=== PATIENT | male | born 1945 | race African-American/Black ===

== ENCOUNTER → 2017-04-30 | Outpatient (CLI) | payer OTHER ==
[2017-04-30 17:45] LABS: BLOOD UREA NITROGEN 11 mg/dl (7-18); BUN/CREATININE RATIO 8.7 (10-20); CALCIUM 9.1 mg/dl (8.5-10.1); CARBON DIOXIDE 25 mmol/L (21-32); CHLORIDE 107 mmol/L (98-107); GLUCOSE 100 mg/dl (70-99); POTASSIUM 3.8 mmol/L (3.5-5.1); SODIUM 138 mmol/L (136-145)
== END | disposition home or self-care (01) ==
LOC: C.LABSPEC 16:01
PROVIDERS: ATTEND Physician Assistant Medical
DX: Z01.812 Encounter for preprocedural laboratory examination (principal)

== ENCOUNTER 2017-09-17 03:48 | Inpatient (IN) | payer OTHER ==
[~2017-09-17] VITALS: Ht 175.3 cm; Wt 77.0 kg
[2017-09-17] VITALS (22 sets, daily range): BP systolic 111–138; BP diastolic 59–82; PULSE 94–122; TEMP 36.6–36.7; O2SAT 91–96; Ht 175.3 cm; Wt 77.0 kg
[2017-09-17] MEDS ORDERED: AMLO-114 PO (04:25)
[2017-09-17] MEDS ORDERED: ACET-1256 PO (04:25)
[2017-09-17] MEDS ORDERED: ASPI81TA28 PO (04:25)
[2017-09-17] MEDS ORDERED: CETI10TA84 PO (04:25)
[2017-09-17] MEDS ORDERED: ENAL1TAB31 PO (04:25)
[2017-09-17] MEDS ORDERED: FINA5TAB PO (04:26)
[2017-09-17] MEDS ORDERED: NAPR-1169 PO (04:26)
[2017-09-17] MEDS ORDERED: LOVA20TA4 PO (04:26)
[2017-09-17] MEDS ORDERED: HYDR25TA4 PO (04:26)
[2017-09-17] MEDS ORDERED: METO25TA56 PO (04:26)
[2017-09-17] MEDS ORDERED: TAMS0.4C38 PO (04:27)
[2017-09-17] MEDS ORDERED: SODIUM CHLORIDE 0.9% 1000ML 1,000 ML IV STA ×3 (04:46→05:40)
--- NOTE | 2017-09-17 04:53 | EMERGENCY ROOM VISIT NOTE ---
History Report prepared by Kary: Blaise Smith Under the Supervision of: Dr. Madison Asher M.D. First contact with patient: 04:07 Chief Complaint: HIP PAIN Stated Complaint: LEG PAIN, TACHYCARDIAC History of Present Illness The patient is a 72 year old male who presents to the Emergency Room with complaints of worsening left hip and leg pain for the past two weeks which is worse with movement. The patient states that the pain started once they put in a vega catheter 14 days ago, and he states that it is in because he has an enlarged prostate. He states that he had a fever when it was put in, though he does not have one now, and he states that he is currently short of breath. He states that he feels dehydrated since he has been unable to drink. The patient denies any hematochezia and vomiting. He has a history of diabetes, hypertension , and hepatitis A, and he takes aspirin and naproxen. He has no history of blood clots. He notes that he had some brown urine a couple of days ago. Source of History: patient Onset: two weeks ago Position: leg (left), other (left hip) Timing: worsening Modifying Factors (Worsening): movement Associated Symptoms: + SOB, No vomiting, No hematochezia Review of Systems See HPI for pertinent positives & negatives. A total of 10 systems reviewed and were otherwise negative. 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) Current/Historical Medications Scheduled Acetaminophen (Tylenol), 500 MG PO TID Amlodipine (Norvasc), 10 MG PO DAILY Aspirin (Aspirin Ec), 81 MG PO DAILY Cetirizine (Zyrtec), 10 MG PO DAILY Enalapril Maleate (Vasotec), 1 TAB PO DAILY Finasteride (Proscar), 5 MG PO DAILY Hydrochlorothiazide (Hctz), 25 MG PO DAILY Lovastatin (Mevacor), 20 MG PO HS Metoprolol Tartrate (Lopressor) (Lopressor), 25 MG PO BID Naproxen (Naprosyn), 500 MG PO BID Tamsulosin Hcl (Flomax), 0.4 MG PO BID Allergies Coded Allergies: No Known Allergies (Unverified , 09/17/17) Physical Exam Vital Signs Date Time Temp Pulse Resp B/P (MAP) Pulse Ox O2 Delivery O2 Flow Rate FiO2 09/17/17 09:30 95 Room Air 09/17/17 09:15 36.6 122 32 138/73 (94) 95 Room Air 09/17/17 09:00 117 32 136/64 94 09/17/17 08:01 128 24 122/63 95 Room Air 09/17/17 07:38 93 Room Air 09/17/17 07:04 121 09/17/17 06:24 117 24 121/81 93 Room Air 09/17/17 05:40 115/72 09/17/17 05:30 116 24 95 Room Air 09/17/17 05:00 122 22 93 Room Air 09/17/17 04:30 119 20 94 Room Air 09/17/17 04:08 122 09/17/17 03:54 36.7 129 24 123/71 97 Room Air Physical Exam Vital signs reviewed. General: Ill-appearing male, in no significant distress. HEENT: Mild scleral icterus, PERRLA, neck supple. Atraumatic. Cardiovascular: Tachycardic rate and regular rhythm, no extra sounds. Pulmonary: Clear to auscultation bilaterally, normal work of breathing. Abdomen: Soft, nontender, nondistended, positive bowel sounds. : Vega catheter in place in place with a small amount of brown to dark yellow urine in the catheter with nothing in the bag. Musculoskeletal: Mild tenderness over the proximal left femur. Pain with range of motion of the left leg. Atraumatic, no peripheral edema. Neurologic: Patient awake alert and oriented x 3, full strength in all 4 extremities. Cranial nerves 2 through 12 grossly intact. Skin: Warm, dry, no rash Medical Decision & Procedures ER Provider Diagnostic Interpretation: X-ray results as stated below per interpretation by me Chest: Perihilar prominence on the right. No focal lung consolidation. No failure. Rotated X-ray. Laboratory Results Test 09/17/17 04:05 09/17/17 05:07 09/17/17 05:41 09/17/17 08:24 Neutrophils % (Manual) 89.6 % Lymphocytes % (Manual) 1.7 % Monocytes % (Manual) 3.5 % Metamyelocytes % 5.2 % Neutrophils # (Manual) 32.08 K/uL (1.4-6.5) Total Absolute Neutrophils 32.08 K/uL (1.4-6.5) Lymphocytes # (Manual) 0.61 K/uL (1.2-3.4) Total Absolute Lymphocytes 0.61 K/uL (1.2-3.4) Monocytes # (Manual) 1.25 K/uL (0.11-0.59) Metamyelocytes # 1.86 K/uL (0-0) Peripheral Blood Smear Path Consult Total Creatine Kinase 38 U/L (39-308) Creatine Kinase MB < 0.5 ng/ml (0.5-3.6) Creatine Kinase MB Ratio (0-3.0) Bedside Lactic Acid Venous 5.46 mmol/L (0.90-1.70) Urine Color ORANGE Urine Appearance TURBID (CLEAR) Urine pH 5.0 (4.5-7.5) Urine Specific [place] 1.020 (1.000-1.030) Urine Protein 1+ (NEG) Urine Glucose (UA) NEG (NEG) Urine Ketones NEG (NEG) Urine Occult Blood 3+ (NEG) Urine Nitrite POS (NEG) Urine Bilirubin NEG (NEG) Urine Urobilinogen NEG (NEG) Urine Leukocyte Esterase LARGE (NEG) Urine WBC (Auto) >30 /hpf (0-5) Urine RBC (Auto) >30 /hpf (0-4) Urine Hyaline Casts (Auto) 0 /lpf (0-5) Urine Epithelial Cells (Auto) 10-20 /lpf (0-5) Urine Bacteria (Auto) 2+ (NEG) Urine Pathogenic Casts /lpf (0) Urine Yeast (Auto) (NONE PRSENT) Arterial Blood pH 7.41 (7.35-7.45) Arterial Blood Partial Pressure CO2 26 mmHg (35-46) Arterial Blood Partial Pressure O2 68 mm/Hg (80-95) Arterial Blood HCO3 16 mmol/L (19-24) Arterial Blood Oxygen Saturation 92.1 % (90-95) Arterial Blood Base Excess -7.1 mEq/L (-9-1.8) Arterial Blood Gas Delivery RA Román Test POS (POS) Date/Time Source Procedure Growth Status 09/17/17 09:30 Nasal MRSA DNA Surveillance Screen - Final Specimen Negative for MRSA by DNA Probe Complete 09/17/17 05:41 Urine,Catheterized Urine Culture - Final Escherichia Coli Complete Laboratory results per my review. Medications Administered Medications (Trade) Dose Ordered Sig/[place]andel[place] Route Start Time Stop Time Status Last Admin Dose Admin Sodium Chloride 1,000 ml @ 999 mls/hr Q1H1M STAT IV 09/17/17 04:46 09/17/17 05:46 DC 09/17/17 04:46 999 MLS/HR Sodium Chloride 1,000 ml @ 999 mls/hr Q1H1M STAT IV 09/17/17 05:40 09/17/17 06:40 DC 09/17/17 05:40 999 MLS/HR Sodium Chloride 1,000 ml @ 150 mls/hr Q6H40M STAT IV 09/17/17 05:40 09/17/17 12:21 DC 09/17/17 05:40 150 MLS/HR Piperacillin Sod/ Tazobactam Sod (Zosyn Iv) 4.5 gm NOW STAT IV 09/17/17 07:19 09/17/17 07:20 DC 09/17/17 07:25 4.5 GM Sodium Chloride 1,000 ml @ 999 mls/hr Q1H1M ONCE IV 09/17/17 08:21 09/17/17 09:37 DC 09/17/17 09:15 999 MLS/HR Pantoprazole Sodium (Protonix Tab) 40 mg DAILY PO 09/17/17 09:00 09/20/17 09:01 DC 09/20/17 09:46 40 MG ECG Indication: SOB/dyspnea Rate (beats per minute): 127 Rhythm: sinus tachycardia Findings: PVC, no acute ischemic change Change: Patient's electrocardiogram interpreted by me. ED Course 0407: Past medical records reviewed. The patient was evaluated in room A9. A complete history and physical examination was performed. 0446: Sodium Chloride 1000 ml @ 999 mls/hr IV 0540: Sodium Chloride 1000 ml @ 150 mls/hr IV, Sodium Chloride 1000 ml @ 999 mls /hr IV 0613: I reevaluated the patient, and he was at CT scan. 0719: Zosyn 4.5gm IV 0720: I discussed the patient's case with Dr. uLevano - [facility] Hospitalist, and she will evaluate the patient for further management. 0805: Upon reevaluation, the patient is resting comfortably. I discussed laboratory and radiographic results with him. He verbalized agreement of the treatment plan. The patient will be evaluated for further management and care. Medical Decision Differential diagnosis include: Biliary obstruction, pancreatic mass, hepatitis , UTI, pyelonephritis, renal failure, sepsis, UTI, prostatitis, acute on chronic pain. This patient was evaluated and appeared to be chronically ill. IV access was obtained and laboratory work was drawn. EKG reveals a sinus tachycardia at 127. Laboratory work reveals a significant leukocytosis, hyperbilirubinemia, UTI and acute renal failure. The patient was hydrated with normal saline solution. Blood cultures were obtained. The patient was given IV Zosyn in the emergency department. CT scan abdomen and pelvis was performed and is read as above. There is no large obstructing biliary mass. The etiology of the patient 's presentation is unclear. He is suffering from sepsis which is likely a huge component of the process. He will be evaluated by the hospitalist service for further management. Medication Reconcilliation Current Medication List: was personally reviewed by me Blood Pressure Screening Patient's blood pressure: Normal blood pressure Consults Time Called: 0651 Consulting Physician: Dr. Bassem SUAREZ Hospitalist Returned Call: 0720 I discussed the patient's case with Dr. Bassem SUAREZ Hospitalist, and she will evaluate the patient for further management. Impression Primary Impression: Acute renal failure Additional Impressions: UTI (urinary tract infection) Hyperbilirubinemia Leukocytosis Scribe Attestation The scribe's documentation has been prepared under my direction and personally reviewed by me in its entirety. I confirm that the note above accurately reflects all work, treatment, procedures, and medical decision making performed by me. Departure Information Dispostion Being Evaluated By Hospitalist Referrals Jamarcus MURPHY (PCP) Patient Instructions My [facility] Problem Qualifiers
[2017-09-17 05:52] LABS: AST/SGOT 79 U/L (15-37)
[2017-09-17 05:53] LABS: ALKALINE PHOSPHATASE 716 U/L (45-117); ALT/SGPT 56 U/L (12-78); BLOOD UREA NITROGEN 107 mg/dl (7-18); CALCIUM 8.9 mg/dl (8.5-10.1); CARBON DIOXIDE 16 mmol/L (21-32); CKMB < 0.5 ng/ml (0.5-3.6); CREATININE 6.51 mg/dl (0.60-1.40); GLUCOSE 84 mg/dl (70-99); SODIUM 135 mmol/L (136-145); TOTAL PROTEIN 6.6 gm/dl (6.4-8.2)
[2017-09-17 06:05] LABS: HEMATOCRIT 30.3 % (42-52); MEAN CELL VOLUME 74.3 fL (80-100); MEAN CORPUSCULAR HGB CONC 36.3 g/dl (32-36); NUCLEATED RED BLOOD CELL ABS 0.05 K/uL (0-0); PLATELET COUNT 74 K/uL (130-400); RED CELL DISTRIBUTION WIDTH CV 14.4 % (11.5-14.5); RED CELL DISTRIBUTION WIDTH SD 38.9 fL (36.4-46.3)
--- NOTE | 2017-09-17 07:08 | DIAGNOSTIC IMAGING REPORT ---
CT SCAN OF THE ABDOMEN AND PELVIS WITHOUT CONTRAST CLINICAL HISTORY: Elevated bilirubin. Renal failure. COMPARISON STUDY: No previous studies for comparison. TECHNIQUE: CT scan of the abdomen and pelvis was performed from the lung bases to the proximal femurs. Images are reviewed in the axial, sagittal, and coronal planes. IV contrast was not administered for this examination. A dose lowering technique was utilized adhering to the principles of ALARA. CT DOSE: 343.91 mGy.cm FINDINGS: Lower chest: There are mild bibasal atelectatic changes present. Liver: The unenhanced liver is normal in size, contour, and attenuation. There is no intrahepatic biliary ductal dilatation. Gallbladder: Unremarkable. Spleen: Normal in size and attenuation. Pancreas: Unremarkable. Adrenal glands: Unremarkable. Kidneys: No renal, ureteral, or bladder calculi are visualized. There is minor bilateral perinephric stranding. Bowel: There are no transition zones indicate bowel obstruction. There are multiple colonic diverticula present. There is no evidence of acute diverticulitis. The appendix appears normal. Peritoneum: There is no intraperitoneal free air or abdominal ascites. There is small fat-containing right inguinal hernia Vasculature: The abdominal aorta is normal in course and caliber. Adenopathy: None. Pelvic viscera: There is indwelling Hamm catheter area the prostate is enlarged. Skeletal structures: No destructive osseous lesions are seen. Advanced arthritic changes are present within the left hip. Avascular necrosis cannot be excluded. IMPRESSION: 1. Minor bilateral perinephric stranding 2. No renal, ureteral, or bladder calculi identified 3. No evidence of bowel obstruction. No evidence of free air 4. Normal appendix 5. Diverticulosis. No evidence of acute diverticulitis. Electronically signed by: Anthony Sanchez M.D. 09/17/2017 7:07 AM Dictated Date/Time: 09/17/2017 7:03 AM
[2017-09-17] MEDS ORDERED: PIPERACILLIN/TAZOBACTAM 4.5 GM/100ML D5W IV STA (07:19)
--- NOTE | 2017-09-17 08:07 | DIAGNOSTIC IMAGING REPORT ---
CHEST ONE VIEW PORTABLE HISTORY: Weakness. Short of breath. COMPARISON: None. FINDINGS: The lungs are clear. Cardiac silhouette is normal in size. No pleural effusions. No pneumothorax. IMPRESSION: No acute process. Electronically signed by: Joel Ring M.D. 09/17/2017 8:06 AM Dictated Date/Time: 09/17/2017 8:04 AM
--- NOTE | 2017-09-17 08:19 | History and Physical ---
History & Physical Date & Time of Service: Sep 17, 2017 at 08:12 Chief Complaint: Leg Pain, Tachycardiac Primary Care Physician: Jamarcus MURPHY History of Present Illness Source: patient 72 yo male with longstanding history of left hip pain for over 2 years comes into the hospital with symptoms of lack of appetite, nausea, malaise, generalized weakness, and difficulty urinating. He reports that about 2 weeks ago, he noticed that he was urinating less. He states that a urine catheter was placed about 10 days ago. He noticed dark color urine. About 7-10 days prior to arrival, he began noticing lack of appetite, with some nausea, but no vomiting. He states that he marshall d a lack of energy and would no longer go to the cafeteria. As he noticed that he was not getting better, patient decided to come to the hospital. Past Medical/Surgical History H/O Hepatitis A H/O Hypertension H/O BPH Social History Patient is from [facility]. 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 (prisoner) Immunizations History of Influenza Vaccine: Unknown History of Tetanus Vaccine?: Unknown History of Pneumococcal: Unknown History of Hepatitis B Vaccine: Unknown Multi-Drug Resistant Organisms History of MDRO: No Allergies Coded Allergies: No Known Allergies (Unverified , 09/17/17) Home Medications Scheduled Acetaminophen (Tylenol), 500 MG PO TID Amlodipine (Norvasc), 10 MG PO DAILY Aspirin (Aspirin Ec), 81 MG PO DAILY Cetirizine (Zyrtec), 10 MG PO DAILY Enalapril Maleate (Vasotec), 1 TAB PO DAILY Finasteride (Proscar), 5 MG PO DAILY Hydrochlorothiazide (Hctz), 25 MG PO DAILY Lovastatin (Mevacor), 20 MG PO HS Metoprolol Tartrate (Lopressor) (Lopressor), 25 MG PO BID Naproxen (Naprosyn), 500 MG PO BID Tamsulosin Hcl (Flomax), 0.4 MG PO BID Review of Systems Constitutional: + weakness, + fatigue, No fever, No chills, No sweats Eyes: No worsening of vision, No eye pain ENT: No hearing loss Respiratory: No cough, No sputum, No wheezing, No shortness of breath, No dyspnea on exertion, No dyspnea at rest Cardiovascular: No chest pain Abdomen: + pain, + nausea, No vomiting, No diarrhea Musculoskeletal: + joint pain (left hip pain) Genitourinary - Male: + hematuria, + urinary retention Neurologic: No memory loss Psychiatric: No anxiety Endocrine: No fatigue Integumentary: No rash, No itch Allergic / Immunologic: No environmental allergies Physical Exam Vital Signs Date Time Temp Pulse Resp B/P (MAP) Pulse Ox O2 Delivery O2 Flow Rate FiO2 09/17/17 08:01 128 24 122/63 95 Room Air 09/17/17 07:38 93 Room Air 09/17/17 07:04 121 09/17/17 06:24 117 24 121/81 93 Room Air 09/17/17 05:40 115/72 09/17/17 05:30 116 24 95 Room Air 09/17/17 05:00 122 22 93 Room Air 09/17/17 04:30 119 20 94 Room Air 09/17/17 04:08 122 09/17/17 03:54 36.7 129 24 123/71 97 Room Air General Appearance: WD/WN, no apparent distress Head: normocephalic, atraumatic Eyes: PERRL, EOMI ENT: normal ENT inspection Neck: supple, no adenopathy Respiratory/Chest: chest non-tender, lungs clear, normal breath sounds Cardiovascular: no edema, no murmur, normal peripheral pulses, + tachycardia Abdomen/GI: normal bowel sounds, soft, + tenderness (to epigastric region, no rebound tenderness) Back: normal inspection, no CVA tenderness Neurologic/Psych: alert, oriented x 3 Skin: normal color Lymphatic: no adenopathy Diagnostics Laboratory Results Results Past 24 Hours Test 09/17/17 03:56 09/17/17 04:05 09/17/17 05:07 09/17/17 05:41 Range/Units Bedside Glucose 102 70-99 mg/dl White Blood Count 35.80 4.8-10.8 K/uL Red Blood Count 4.08 4.7-6.1 M/uL Hemoglobin 11.0 14.0-18.0 g/dL Hematocrit 30.3 42-52 % Mean Corpuscular Volume 74.3 80-100 fL Mean Corpuscular Hemoglobin 27.0 25-34 pg Mean Corpuscular Hemoglobin Concent 36.3 32-36 g/dl Platelet Count 74 130-400 K/uL RDW Standard Deviation 38.9 36.4-46.3 fL RDW Coefficient of Variation 14.4 11.5-14.5 % Nucleated RBC Absolute Count (auto) 0.05 0-0 K/uL Neutrophils % (Manual) 89.6 % Lymphocytes % (Manual) 1.7 % Monocytes % (Manual) 3.5 % Metamyelocytes % 5.2 % Nucleated Red Blood Cells % 0.1 % Neutrophils # (Manual) 32.08 1.4-6.5 K/uL Total Absolute Neutrophils 32.08 1.4-6.5 K/uL Lymphocytes # (Manual) 0.61 1.2-3.4 K/uL Total Absolute Lymphocytes 0.61 1.2-3.4 K/uL Monocytes # (Manual) 1.25 0.11-0.59 K/uL Metamyelocytes # 1.86 0-0 K/uL Toxic Vacuolation 2+ Platelet Estimate DECREASED Echinocytes 2+ Sodium Level 135 136-145 mmol/L Potassium Level 4.0 3.5-5.1 mmol/L Chloride Level 102 98-107 mmol/L Carbon Dioxide Level 16 21-32 mmol/L Anion Gap 17.0 3-11 mmol/L Blood Urea Nitrogen 107 7-18 mg/dl Creatinine 6.51 0.60-1.40 mg/dl Est Creatinine Clear Calc Drug Dose 10.0 ml/min Estimated GFR () 8.9 Estimated GFR (Non- 7.7 BUN/Creatinine Ratio 16.5 10-20 Random Glucose 84 70-99 mg/dl Calcium Level 8.9 8.5-10.1 mg/dl Magnesium Level 2.3 1.8-2.4 mg/dl Total Bilirubin 10.4 0.2-1 mg/dl Direct Bilirubin 8.2 0-0.2 mg/dl Aspartate Amino Transf (AST/SGOT) 79 15-37 U/L Alanine Aminotransferase (ALT/SGPT) 56 12-78 U/L Alkaline Phosphatase 716 45-117 U/L Total Creatine Kinase 38 39-308 U/L Creatine Kinase MB < 0.5 0.5-3.6 ng/ml Creatine Kinase MB Ratio 0-3.0 Total Protein 6.6 6.4-8.2 gm/dl Albumin 2.0 3.4-5.0 gm/dl Bedside Lactic Acid Venous 5.46 0.90-1.70 mmol/L Urine Color ORANGE Urine Appearance TURBID CLEAR Urine pH 5.0 4.5-7.5 Urine Specific [place] 1.020 1.000-1.030 Urine Protein 1+ NEG Urine Glucose (UA) NEG NEG Urine Ketones NEG NEG Urine Occult Blood 3+ NEG Urine Nitrite POS NEG Urine Bilirubin NEG NEG Urine Urobilinogen NEG NEG Urine Leukocyte Esterase LARGE NEG Urine WBC (Auto) >30 0-5 /hpf Urine RBC (Auto) >30 0-4 /hpf Urine Hyaline Casts (Auto) 0 0-5 /lpf Urine Epithelial Cells (Auto) 10-20 0-5 /lpf Urine Bacteria (Auto) 2+ NEG Urine Pathogenic Casts 0 /lpf Urine Yeast (Auto) NONE PRSENT Test 09/17/17 07:49 Range/Units Microbiology Results 09/17/17 Blood Culture, Received Pending 09/17/17 Blood Culture, Received Pending 09/17/17 Urine Culture, Received Pending Diagnostic Radiology CT- ABD/pelvis without contrast 1. Minor bilateral perinephric stranding 2. No renal, ureteral, or bladder calculi identified 3. No evidence of bowel obstruction. No evidence of free air 4. Normal appendix 5. Diverticulosis. No evidence of acute diverticulitis. EKG CHEST ONE VIEW PORTABLE HISTORY: Weakness. Short of breath. COMPARISON: None. FINDINGS: The lungs are clear. Cardiac silhouette is normal in size. No pleural effusions. No pneumothorax. IMPRESSION: No acute process. Sinus tachycardia with occasional Premature ventricular complexes Otherwise normal ECG No previous ECGs available Impression Assessment and Plan UROSEPSIS with severe acute renal failure and metaolic acidosis in a 72 yo male with history of hypertension, BPH. Will admit to the ICU. Received Zosyin, 2 liters of IVF Lactic acid is 6. CBC is over 30 Anion gap is elevated Will continue with aggressive fluid resuscitation and Zosyn. Discussed case with ICU team. No urinary obstruction noted on imaging or stones Creatinine is 6 with GFR in the teens. Given his metabolic acidosis and severe renal failure, and tachycardia, will monitor patient in the ICU will monitor in the first few hours, if patient improves today will downgrade him. SONY GFR is the teens. In metabolic acidosis, may need dialysis if he does not improve. will consult nephrology Elevated Liver function test May be a seqeula from sepsis. will monitor HTN: HOLD meds for now Left hip pain Chronic from likely OA will monitor placed on Lidoderm patch will hold nsaids and tylenol due to elevated LFT and Creatinine BPH: will monitor. vega placed Patient is LEVEL 5 CODE STATUS DVT: HEP GI PROTONIX DIET NPO EXCEPT MEDS FOR NOW. Spent 45 minutes in critical care management D/W Nephrology, D/W Critical care team Level of Care Critical Care Advanced Directives Existing Living Will: No Existing Power of Slab Puller: No Resuscitation Status DO NOT RESUSCITATE VTE Prophylaxis Risk Level: Moderate Given or contraindicated: Unfractionated heparin SQ Note Total Time: Critical Care 30 - 74 minutes
[2017-09-17] MEDS ORDERED: PIPERACILL/TAZOBAC CONSULT ACTIVE PRN (08:21)
[2017-09-17] MEDS ORDERED: SODIUM CHLORIDE 0.9% 1000ML 1,000 ML IV ONE (08:21)
[2017-09-17] MEDS ORDERED: ICU PROTOCOL FOR HYPERGLYCEMIA PRN (08:30)
[2017-09-17] MEDS ORDERED: ALUMINUM/MAGNESIUM/SIMETH (MAALOX MAX) 30 ML UDC PO PRN (08:30)
[2017-09-17] MEDS: SODIUM CHLORIDE 0.9% 1000ML 1,000 ML IV SCH ×3 (10:50→21:03)
[2017-09-17 11:02] LABS: CALCIUM 8.4 mg/dl (8.5-10.1); CREATININE 5.94 mg/dl (0.60-1.40); POTASSIUM 4.4 mmol/L (3.5-5.1)
[2017-09-17] MEDS ORDERED: PIPERACILL/TAZOBAC IV 4.5 GM in DEXTROSE 5% 100ML 100 ML IV SCH (12:00)
[2017-09-17 13:22] LABS: INR 1.2 (0.9-1.1); PTT PATIENT 34.1 SECONDS (21.0-31.0)
[2017-09-17] MEDS: ASPIRIN 81 MG ECTAB PO SCH (13:24)
[2017-09-17] MEDS: PANTOprazole SOD 40 MG TAB PO SCH (13:24)
[2017-09-17] MEDS: LIDODERM (LIDOCAINE) PATCH 5% TD SCH (13:25)
--- NOTE | 2017-09-17 13:31 | Nephrology Consultation ---
Nephrology Consultation Date & Providers Date of Consultation: Sep 17, 2017. Primary Care Provider: Jamarcus MURPHY Referring Provider: Reason for Consultation Acute renal insufficiency History of Present Illness Mr. Brett Emmanuel is a 72-year-old male who was seen and evaluated in the ICU this morning for evaluation of acute renal insufficiency. Baseline creatinine in April 2017 was 1.3 mg/dL. The patient denies any prior history of SONY. He presented to [facility] with left hip pain, anorexia, nausea, malaise and generalized weakness. Brett developed symptoms of urinary retention starting approximately 2 weeks ago. A Hamm catheter was placed. This has been draining turbid urine. Brett states that his PSA has been elevated. He has a longstanding history of BPH and LUTs but noted severe retention 2 weeks ago. He is scheduled to follow up with urology for a biopsy. Brett describes increasing symptoms of weakness and mild myalgias for the past week. His appetite has been poor. He is nauseous. He vomited after eating on more than one occasions and has been avoiding meals for the past 3-4 days. He reports mild right upper quadrant abdominal pain. He denies constipation. He denies diarrhea but does describe some loose stool. He does not endorse melena or hematochezia. His stool has not been light in color. Brett also notes that he developed pain in his hip within the past few days. The pain is lateral to his groin. There is tenderness over the lateral aspect of the joint as well. He has not had similar symptoms in the past. He denies trauma. Brett denies fevers or chills. He denies weight loss. He denies chest pain or palpitations. He describes a history of hepatitis A in the . He states that he was treated at that time. He denies any other history of liver disease. He denies significant alcohol use or any history of IV drug use. Past Medical/Surgical History Medical: Hepatitis A treated in the BPH OA/DJD Hypertension Prior history of DM treated with oral medications but patient was taken off medications a few months ago due to hypoglycemia Surgical: None reported Allergies Coded Allergies: No Known Allergies (Unverified , 09/17/17) Inpatient Medications Current Inpatient Medications Medications (Trade) Dose Ordered Sig/Candelaria Route Start Time Stop Time Status Last Admin Dose Admin Miscellaneous Information (Consult) 1 ea UD PRN N/A 09/17/17 08:21 10/17/17 08:20 Piperacillin Sod/ Tazobactam Sod 4.5 gm/Dextrose 120 ml @ 200 mls/hr Q6 IV 09/17/17 12:00 09/27/17 11:59 UNV Heparin Sodium (Porcine) (Heparin Sq 5000 Unit/0.5ml) 5,000 unit Q12H SQ 09/17/17 08:30 10/17/17 08:29 UNV Sodium Chloride 1,000 ml @ 200 mls/hr Q5H IV 09/17/17 10:30 10/17/17 10:29 09/17/17 10:50 200 MLS/HR Aspirin (Ecotrin Tab) 81 mg QAM PO 09/17/17 13:00 10/17/17 12:59 Al Hydrox/Mg Hydrox/Simethicone (Maalox Max Susp) 15 ml Q4H PRN PO 09/17/17 08:30 10/17/17 08:29 Pantoprazole Sodium (Protonix Tab) 40 mg DAILY PO 09/17/17 09:00 09/20/17 09:01 Miscellaneous Information (Icu Protocol For Hyperglycemia) 1 ea PRN PRN N/A 09/17/17 08:30 09/19/17 08:29 Lidocaine (Lidoderm Patch 5%) 1 patch QAM TD 09/18/17 09:00 10/18/17 08:59 Miscellaneous (Remove Lidoderm Patch) 1 ea DAILY@21 N/A 09/17/17 21:00 10/17/17 20:59 Social History Smoking Status: Never Smoker Smokeless Tobacco Use: No Alcohol Use: none Drug Use: none 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) Review of Systems A complete review of systems was performed. Pertinent positives are noted above. All other systems are negative. Physical Exam Date Time Temp Pulse Resp B/P (MAP) Pulse Ox O2 Delivery O2 Flow Rate FiO2 09/17/17 12:44 93 Room Air 09/17/17 12:00 36.7 108 30 124/61 (82) 93 Room Air 09/17/17 11:00 113 27 121/64 (83) 96 Room Air 09/17/17 10:00 113 22 112/63 (79) 91 Room Air 09/17/17 09:30 95 Room Air 09/17/17 09:15 36.6 122 32 138/73 (94) 95 Room Air 09/17/17 09:00 117 32 136/64 94 09/17/17 08:01 128 24 122/63 95 Room Air 09/17/17 07:38 93 Room Air 09/17/17 07:04 121 09/17/17 06:24 117 24 121/81 93 Room Air 09/17/17 05:40 115/72 09/17/17 05:30 116 24 95 Room Air 09/17/17 05:00 122 22 93 Room Air 09/17/17 04:30 119 20 94 Room Air 09/17/17 04:08 122 09/17/17 03:54 36.7 129 24 123/71 97 Room Air General Appearance: WD/WN, no apparent distress, + thin Head: normocephalic Eyes: normal inspection, + pertinent finding (icteric) ENT: normal ENT inspection, pharynx normal, + pertinent finding (oral mucosa dry) Neck: supple, no JVD Respiratory/Chest: lungs clear, normal breath sounds, no respiratory distress Cardiovascular: regular rate, rhythm, no JVD Abdomen/GI: non tender, soft, + tenderness (mild right upper quadrant, no guarding or rebound), + distended Back: no CVA tenderness Extremities/Musculoskelatal: normal inspection, no pedal edema Neurologic/Psych: alert, normal mood/affect Skin: + jaundice Laboratory Results Last 24 Hours Test 09/17/17 03:56 09/17/17 04:05 09/17/17 05:07 09/17/17 05:41 Bedside Glucose 102 mg/dl White Blood Count 35.80 K/uL Red Blood Count 4.08 M/uL Hemoglobin 11.0 g/dL Hematocrit 30.3 % Mean Corpuscular Volume 74.3 fL Mean Corpuscular Hemoglobin 27.0 pg Mean Corpuscular Hemoglobin Concent 36.3 g/dl Platelet Count 74 K/uL RDW Standard Deviation 38.9 fL RDW Coefficient of Variation 14.4 % Nucleated RBC Absolute Count (auto) 0.05 K/uL Neutrophils % (Manual) 89.6 % Lymphocytes % (Manual) 1.7 % Monocytes % (Manual) 3.5 % Metamyelocytes % 5.2 % Nucleated Red Blood Cells % 0.1 % Neutrophils # (Manual) 32.08 K/uL Total Absolute Neutrophils 32.08 K/uL Lymphocytes # (Manual) 0.61 K/uL Total Absolute Lymphocytes 0.61 K/uL Monocytes # (Manual) 1.25 K/uL Metamyelocytes # 1.86 K/uL Toxic Vacuolation 2+ Platelet Estimate DECREASED Echinocytes 2+ Sodium Level 135 mmol/L Potassium Level 4.0 mmol/L Chloride Level 102 mmol/L Carbon Dioxide Level 16 mmol/L Anion Gap 17.0 mmol/L Blood Urea Nitrogen 107 mg/dl Creatinine 6.51 mg/dl Est Creatinine Clear Calc Drug Dose 10.0 ml/min Estimated GFR () 8.9 Estimated GFR (Non- 7.7 BUN/Creatinine Ratio 16.5 Random Glucose 84 mg/dl Calcium Level 8.9 mg/dl Magnesium Level 2.3 mg/dl Total Bilirubin 10.4 mg/dl Direct Bilirubin 8.2 mg/dl Aspartate Amino Transf (AST/SGOT) 79 U/L Alanine Aminotransferase (ALT/SGPT) 56 U/L Alkaline Phosphatase 716 U/L Total Creatine Kinase 38 U/L Creatine Kinase MB < 0.5 ng/ml Creatine Kinase MB Ratio Total Protein 6.6 gm/dl Albumin 2.0 gm/dl Bedside Lactic Acid Venous 5.46 mmol/L Urine Color ORANGE Urine Appearance TURBID Urine pH 5.0 Urine Specific [place] 1.020 Urine Protein 1+ Urine Glucose (UA) NEG Urine Ketones NEG Urine Occult Blood 3+ Urine Nitrite POS Urine Bilirubin NEG Urine Urobilinogen NEG Urine Leukocyte Esterase LARGE Urine WBC (Auto) >30 /hpf Urine RBC (Auto) >30 /hpf Urine Hyaline Casts (Auto) 0 /lpf Urine Epithelial Cells (Auto) 10-20 /lpf Urine Bacteria (Auto) 2+ Urine Pathogenic Casts /lpf Urine Yeast (Auto) Test 09/17/17 08:24 09/17/17 09:46 09/17/17 12:35 Arterial Blood pH 7.41 Arterial Blood Partial Pressure CO2 26 mmHg Arterial Blood Partial Pressure O2 68 mm/Hg Arterial Blood HCO3 16 mmol/L Arterial Blood Oxygen Saturation 92.1 % Arterial Blood Base Excess -7.1 mEq/L Arterial Blood Gas Delivery RA Román Test POS Sodium Level 137 mmol/L Potassium Level 4.4 mmol/L Chloride Level 105 mmol/L Carbon Dioxide Level 18 mmol/L Anion Gap 14.0 mmol/L Blood Urea Nitrogen 106 mg/dl Creatinine 5.94 mg/dl Est Creatinine Clear Calc Drug Dose 10.9 ml/min Estimated GFR () 9.9 Estimated GFR (Non- 8.6 BUN/Creatinine Ratio 17.8 Random Glucose 142 mg/dl Lactic Acid Level 2.4 mmol/L Calcium Level 8.4 mg/dl Impression (1) Leukocytosis (2) Thrombocytopenia (3) Anemia (4) Acute renal failure (5) Hyperbilirubinemia (6) UTI (urinary tract infection) Mr. Brett Emmanuel is a 72-year-old male inmate who was transferred from the [facility] for evaluation of progressive symptoms of weakness, anorexia, nausea, abdominal discomfort and hip pain. Clinical presentation consistent with severe sepsis. Serum lactate improving with IVF. Medical history is notable for a BPH, urinary obstruction with chronic indwelling Hamm as well as an elevated PSA. Initial evaluation is notable for acute renal insufficiency, hyperbilirubinemia (direct), hypoalbuminemia, thrombocytopenia, anemia and a leukocytosis. Noncontrast CT scan of the abdomen and pelvis was reviewed. The kidneys are normal in appearance. There is no evidence of obstruction. Urine is turbid with gross hematuria. UA documented hematuria, proteinuria, pyuria. The patient is hypovolemic. He has received 3 L of IV crystalloid with mIVF ordered. UOP is appropriate; he is non oliguric. Blood pressure is acceptable. Based on clinical presentation it is difficult to distinguish chronic from acute liver disease. The patient has a history of hepatitis A which was treated and very unlikely to cause chronic liver dysfunction. He denies any other significant risk factors. A right upper quadrant US has been requested. CT scan did not suggest a cirrhotic appearing liver. Additional stigmata for liver dysfunction will be closely monitored. Certainly, the degree of cholestasis is disconcerting. Additional records from [facility] will be needed regarding prior evaluations. Presentation would be atypical for infiltrative hematologic malignancy, due to cytopenias and degree of neutropenia in the setting of multiple system dysfunction, a peripheral smear has been requested. I am concerned regarding the history of hip pain and elevated PSA. Certainly, when the patient is stable, additional imaging may be necessary. SONY at this time is likely related to prerenal azotemia and ATN. Other etiologies such as GN or AIN would be considered significantly less likely. Recommendations -- RUQ US -- Continue 0.9% saline @150 ml/hr -- Monitor metabolic profile q 8-12 hours -- Review peripheral blood smear -- Await additional records from [facility] -- Medications are appropriately dosed for renal function -- Will continue to monitor closely Approximately 40 minutes of critical care time were provided today.
--- NOTE | 2017-09-17 14:56 | Critical Care Consultation ---
Critical Care Consultation Date of Consultation: Sep 17, 2017. Attending Physician: Adelso Berman M.D. Reason for Consultation: Severe Sepsis Past Medical/Surgical History Hepatitis A HTN BPH Social History Smoking Status: Never Smoker Smokeless Tobacco Use: No Alcohol Use: none Drug Use: none Housing Status: other (detention) 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) Allergies Coded Allergies: No Known Allergies (Unverified , 09/17/17) Home Medications Scheduled Acetaminophen (Tylenol), 500 MG PO TID Amlodipine (Norvasc), 10 MG PO DAILY Aspirin (Aspirin Ec), 81 MG PO DAILY Cetirizine (Zyrtec), 10 MG PO DAILY Enalapril Maleate (Vasotec), 1 TAB PO DAILY Finasteride (Proscar), 5 MG PO DAILY Hydrochlorothiazide (Hctz), 25 MG PO DAILY Lovastatin (Mevacor), 20 MG PO HS Metoprolol Tartrate (Lopressor) (Lopressor), 25 MG PO BID Naproxen (Naprosyn), 500 MG PO BID Tamsulosin Hcl (Flomax), 0.4 MG PO BID Current Inpatient Medications Current Inpatient Medications Medications (Trade) Dose Ordered Sig/Candelaria Route Start Time Stop Time Status Last Admin Dose Admin Miscellaneous Information (Consult) 1 ea UD PRN N/A 09/17/17 08:21 10/17/17 08:20 Heparin Sodium (Porcine) (Heparin Sq 5000 Unit/0.5ml) 5,000 unit Q12H SQ 09/17/17 08:30 10/17/17 08:29 UNV Sodium Chloride 1,000 ml @ 200 mls/hr Q5H IV 09/17/17 10:30 10/17/17 10:29 09/17/17 10:50 200 MLS/HR Aspirin (Ecotrin Tab) 81 mg QAM PO 09/17/17 13:00 10/17/17 12:59 09/17/17 13:24 81 MG Al Hydrox/Mg Hydrox/Simethicone (Maalox Max Susp) 15 ml Q4H PRN PO 09/17/17 08:30 10/17/17 08:29 Pantoprazole Sodium (Protonix Tab) 40 mg DAILY PO 09/17/17 09:00 09/20/17 09:01 09/17/17 13:24 40 MG Miscellaneous Information (Icu Protocol For Hyperglycemia) 1 ea PRN PRN N/A 09/17/17 08:30 09/19/17 08:29 Lidocaine (Lidoderm Patch 5%) 1 patch QAM TD 09/18/17 09:00 10/18/17 08:59 09/17/17 13:25 1 PATCH Miscellaneous (Remove Lidoderm Patch) 1 ea DAILY@21 N/A 09/17/17 21:00 10/17/17 20:59 Piperacillin Sod/ Tazobactam Sod 4.5 gm/Dextrose 120 ml @ 30 mls/hr Q12H IV 09/17/17 15:00 09/27/17 14:59 Review of Systems Constitutional: No fever, No chills, No sweats, No weight loss, No weakness, No fatigue, No problem reported ENT: No hearing loss, No unusual epistaxis, No nasal symptoms, No sore throat, No tinnitus, No dental problems, No trouble swallowing, No problem reported Respiratory: No cough, No sputum, No wheezing, No shortness of breath, No dyspnea on exertion, No dyspnea at rest, No hemoptysis, No problem reported Cardiovascular: No chest pain, No orthopnea, No PND, No edema, No claudication , No palpitations, No problem reported Physical Exam Date Time Temp Pulse Resp B/P (MAP) Pulse Ox O2 Delivery O2 Flow Rate FiO2 09/17/17 12:44 93 Room Air 09/17/17 12:00 36.7 108 30 124/61 (82) 93 Room Air 09/17/17 11:00 113 27 121/64 (83) 96 Room Air 09/17/17 10:00 113 22 112/63 (79) 91 Room Air 09/17/17 09:30 95 Room Air 09/17/17 09:15 36.6 122 32 138/73 (94) 95 Room Air 09/17/17 09:00 117 32 136/64 94 09/17/17 08:01 128 24 122/63 95 Room Air 09/17/17 07:38 93 Room Air 09/17/17 07:04 121 09/17/17 06:24 117 24 121/81 93 Room Air 09/17/17 05:40 115/72 09/17/17 05:30 116 24 95 Room Air 09/17/17 05:00 122 22 93 Room Air 09/17/17 04:30 119 20 94 Room Air 09/17/17 04:08 122 09/17/17 03:54 36.7 129 24 123/71 97 Room Air See above for pertinent positives & negatives. A total of 10 systems reviewed and were otherwise negative. General Appearance: WD/WN, no apparent distress Head: normocephalic, atraumatic Eyes: PERRLA, EOMI Neck: normal range of motion, no tenderness, trachea midline, no stridor, supple, no thyromegaly Respiratory: breath sounds normal, clear to auscultation, no respiratory distress Cardiovasular: normal S1S2, no M/G/R, no murmur, no gallop, no rub, no JVD, irregular rate (tachycardia) Abdomen: non tender, normal bowel sounds, no rebound, no masses, no guarding, no organomegaly Genitourinary - Male: other (vega present) Back: normal inspection Laboratory Results Last 24 Hours Test 09/17/17 03:56 09/17/17 04:05 09/17/17 05:07 09/17/17 05:41 Bedside Glucose 102 mg/dl White Blood Count 35.80 K/uL Red Blood Count 4.08 M/uL Hemoglobin 11.0 g/dL Hematocrit 30.3 % Mean Corpuscular Volume 74.3 fL Mean Corpuscular Hemoglobin 27.0 pg Mean Corpuscular Hemoglobin Concent 36.3 g/dl Platelet Count 74 K/uL RDW Standard Deviation 38.9 fL RDW Coefficient of Variation 14.4 % Nucleated RBC Absolute Count (auto) 0.05 K/uL Neutrophils % (Manual) 89.6 % Lymphocytes % (Manual) 1.7 % Monocytes % (Manual) 3.5 % Metamyelocytes % 5.2 % Nucleated Red Blood Cells % 0.1 % Neutrophils # (Manual) 32.08 K/uL Total Absolute Neutrophils 32.08 K/uL Lymphocytes # (Manual) 0.61 K/uL Total Absolute Lymphocytes 0.61 K/uL Monocytes # (Manual) 1.25 K/uL Metamyelocytes # 1.86 K/uL Toxic Vacuolation 2+ Platelet Estimate DECREASED Echinocytes 2+ Sodium Level 135 mmol/L Potassium Level 4.0 mmol/L Chloride Level 102 mmol/L Carbon Dioxide Level 16 mmol/L Anion Gap 17.0 mmol/L Blood Urea Nitrogen 107 mg/dl Creatinine 6.51 mg/dl Est Creatinine Clear Calc Drug Dose 10.0 ml/min Estimated GFR () 8.9 Estimated GFR (Non- 7.7 BUN/Creatinine Ratio 16.5 Random Glucose 84 mg/dl Calcium Level 8.9 mg/dl Magnesium Level 2.3 mg/dl Total Bilirubin 10.4 mg/dl Direct Bilirubin 8.2 mg/dl Aspartate Amino Transf (AST/SGOT) 79 U/L Alanine Aminotransferase (ALT/SGPT) 56 U/L Alkaline Phosphatase 716 U/L Total Creatine Kinase 38 U/L Creatine Kinase MB < 0.5 ng/ml Creatine Kinase MB Ratio Total Protein 6.6 gm/dl Albumin 2.0 gm/dl Bedside Lactic Acid Venous 5.46 mmol/L Urine Color ORANGE Urine Appearance TURBID Urine pH 5.0 Urine Specific [place] 1.020 Urine Protein 1+ Urine Glucose (UA) NEG Urine Ketones NEG Urine Occult Blood 3+ Urine Nitrite POS Urine Bilirubin NEG Urine Urobilinogen NEG Urine Leukocyte Esterase LARGE Urine WBC (Auto) >30 /hpf Urine RBC (Auto) >30 /hpf Urine Hyaline Casts (Auto) 0 /lpf Urine Epithelial Cells (Auto) 10-20 /lpf Urine Bacteria (Auto) 2+ Urine Pathogenic Casts /lpf Urine Yeast (Auto) Test 09/17/17 08:24 09/17/17 09:46 09/17/17 12:55 Arterial Blood pH 7.41 Arterial Blood Partial Pressure CO2 26 mmHg Arterial Blood Partial Pressure O2 68 mm/Hg Arterial Blood HCO3 16 mmol/L Arterial Blood Oxygen Saturation 92.1 % Arterial Blood Base Excess -7.1 mEq/L Arterial Blood Gas Delivery RA Román Test POS Sodium Level 137 mmol/L Potassium Level 4.4 mmol/L Chloride Level 105 mmol/L Carbon Dioxide Level 18 mmol/L Anion Gap 14.0 mmol/L Blood Urea Nitrogen 106 mg/dl Creatinine 5.94 mg/dl Est Creatinine Clear Calc Drug Dose 10.9 ml/min Estimated GFR () 9.9 Estimated GFR (Non- 8.6 BUN/Creatinine Ratio 17.8 Random Glucose 142 mg/dl Lactic Acid Level 2.4 mmol/L Calcium Level 8.4 mg/dl Prothrombin Time 12.3 SECONDS Prothromb Time International Ratio 1.2 Activated Partial Thromboplast Time 34.1 SECONDS Partial Thromboplastin Ratio 1.[address] abd/pelvis: IMPRESSION: 1. Minor bilateral perinephric stranding 2. No renal, ureteral, or bladder calculi identified 3. No evidence of bowel obstruction. No evidence of free air 4. Normal appendix 5. Diverticulosis. No evidence of acute diverticulitis. CXR IMPRESSION: No acute process. I have independently reviewed the images Assessment & Plan Reason Critically Ill: Severe sepsis with compensated high gap metabolic acidosis PLAN: Resp: Respiratory compensation of high gap metabolic acidosis CV: Tachycardia Volume expansion Fluids/Renal: Acute kidney injury * 475 mL of urine output since arrival in ICU BPH High gap metabolic acidosis likely secondary to a lactic acid ID: Severe sepsis * Likely urinary source * Had Vega catheter placed 14 days ago secondary to urinary retention likely secondary to BPH * Zosyn GI/Nutrition: History of Hepatitis A Ultrasound of gallbladder pending Heme: Anemia Thrombocytopenia Endocrine: Accu-Cheks per protocol I have personally spent 40 minutes of critical care time in the direct management of this patient. This is a life/limb threatening event. This includes time spent evaluating patient, direct bedside care, chart review, placing orders, interpretation of diagnostic studies, discussion with consultants, patient, and/or family members regarding treatment decisions, as well as other required patient management activities. This time is exclusive of all separately billable procedures, and teaching time and separate from and in addition to any other critical care service time.
[2017-09-17] MEDS: PIPERACILL/TAZOBAC IV 4.5 GM in DEXTROSE 5% 100ML IV SCH (15:11)
--- NOTE | 2017-09-17 16:01 | DIAGNOSTIC IMAGING REPORT ---
ABDOMINAL ULTRASOUND, RIGHT UPPER QUADRANT HISTORY: jaundice, right upper quadrant abdominal pain. COMPARISON: None. FINDINGS: Pancreas: The pancreatic head and tail are obscured by overlying bowel gas. The remaining portions of the pancreas are within normal limits. Liver: The liver is echogenic consistent with fatty change. Hypoechoic area adjacent to the gallbladder fossa consistent with focal fatty sparing. Trace perihepatic fluid. Gallbladder: Gallbladder wall diffusely thickened measuring up to 6 mm. No gallstones. CBD: 5 mm. Right kidney: No hydronephrosis. IMPRESSION: 1. No gallstones. The gallbladder wall is diffusely thickened measuring up to 6 mm. This is nonspecific and could be due to a diffuse edematous state, cholecystitis, hepatitis, or pancreatitis. Clinical correlation recommended. 2. Hepatic steatosis. 3. Trace perihepatic fluid. Electronically signed by: Joel Ring M.D. 09/17/2017 3:59 PM Dictated Date/Time: 09/17/2017 3:57 PM
[2017-09-17] MEDS: HEPARIN SOD 5000 UNIT/0.5 ML CARP SQ SCH (17:29)
[2017-09-17 18:14] LABS: CREATININE 5.53 mg/dl (0.60-1.40)
[2017-09-17 18:15] LABS: ALBUMIN 1.6 gm/dl (3.4-5.0); PHOSPHORUS 3.6 mg/dl (2.5-4.9)
--- NOTE | 2017-09-17 18:41 | Medical Consult ---
Consultation Date of Consultation: Sep 17, 2017. Attending Physician: Adelso Berman M.D. Reason for Consultation: thickened gb, elevated TB History of Present Illness pt adm w/ anorexia, malaise, nausea, vomiting, decreased urine output also elevated total bili and thrombocytopenia CT and U/S show gb 2.5 cm in diam, thickened- no inflammation on CT denies abd pain, ++flatus suspected urosepsis, acute renal insufficiency Past Medical/Surgical History Medical Problems: (1) Acute renal failure Status: Acute (2) Hyperbilirubinemia Status: Acute (3) Leukocytosis Status: Acute (4) UTI (urinary tract infection) Status: Acute Social History Smoking Status: Never Smoker Smokeless Tobacco Use: No Alcohol Use: none Drug Use: none Housing Status: other (fpc) 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) Allergies Coded Allergies: No Known Allergies (Unverified , 09/17/17) Current Inpatient Medications Current Inpatient Medications Medications (Trade) Dose Ordered Sig/Candelaria Route Start Time Stop Time Status Last Admin Dose Admin Miscellaneous Information (Consult) 1 ea UD PRN N/A 09/17/17 08:21 10/17/17 08:20 Heparin Sodium (Porcine) (Heparin Sq 5000 Unit/0.5ml) 5,000 unit Q12H SQ 09/17/17 17:00 10/17/17 16:59 09/17/17 17:29 5,000 UNIT Sodium Chloride 1,000 ml @ 200 mls/hr Q5H IV 09/17/17 10:30 10/17/17 10:29 09/17/17 15:39 200 MLS/HR Aspirin (Ecotrin Tab) 81 mg QAM PO 09/17/17 13:00 10/17/17 12:59 09/17/17 13:24 81 MG Al Hydrox/Mg Hydrox/Simethicone (Maalox Max Susp) 15 ml Q4H PRN PO 09/17/17 08:30 10/17/17 08:29 Pantoprazole Sodium (Protonix Tab) 40 mg DAILY PO 09/17/17 09:00 09/20/17 09:01 09/17/17 13:24 40 MG Miscellaneous Information (Icu Protocol For Hyperglycemia) 1 ea PRN PRN N/A 09/17/17 08:30 09/19/17 08:29 Lidocaine (Lidoderm Patch 5%) 1 patch QAM TD 09/18/17 09:00 10/18/17 08:59 09/17/17 13:25 1 PATCH Miscellaneous (Remove Lidoderm Patch) 1 ea DAILY@21 N/A 09/17/17 21:00 10/17/17 20:59 Piperacillin Sod/ Tazobactam Sod 4.5 gm/Dextrose 120 ml @ 30 mls/hr Q12H IV 09/17/17 15:00 09/27/17 14:59 09/17/17 15:11 30 MLS/HR Review of Systems Constitutional: + weakness, No fever Respiratory: No cough, No shortness of breath Cardiovascular: No chest pain Abdomen: + nausea, + vomiting Genitourinary - Male: + problem reported (poor urine output), No hematuria Physical Exam Date Time Temp Pulse Resp B/P (MAP) Pulse Ox O2 Delivery O2 Flow Rate FiO2 09/17/17 17:00 111 27 137/67 (90) 91 Room Air 09/17/17 16:00 93 Room Air 09/17/17 16:00 36.6 102 32 122/59 (80) 93 Room Air 09/17/17 15:00 104 34 131/63 (85) 95 Room Air 09/17/17 14:00 102 34 119/64 (82) 92 Room Air 09/17/17 13:00 110 27 132/82 (99) 93 Room Air 09/17/17 12:44 93 Room Air 09/17/17 12:00 36.7 108 30 124/61 (82) 93 Room Air 09/17/17 11:00 113 27 121/64 (83) 96 Room Air 09/17/17 10:00 113 22 112/63 (79) 91 Room Air 09/17/17 09:30 95 Room Air 09/17/17 09:15 36.6 122 32 138/73 (94) 95 Room Air 09/17/17 09:00 117 32 136/64 94 09/17/17 08:01 128 24 122/63 95 Room Air 09/17/17 07:38 93 Room Air 09/17/17 07:04 121 09/17/17 06:24 117 24 121/81 93 Room Air 09/17/17 05:40 115/72 09/17/17 05:30 116 24 95 Room Air 09/17/17 05:00 122 22 93 Room Air 09/17/17 04:30 119 20 94 Room Air 09/17/17 04:08 122 09/17/17 03:54 36.7 129 24 123/71 97 Room Air General Appearance: no apparent distress (alert) Eyes: + abnormal sclerae exam (icterus) Neck: supple Respiratory/Chest: no respiratory distress Cardiovascular: + tachycardia Abdomen/GI: normal bowel sounds, non tender, soft, + pertinent finding (no masses or RUQ fullness) Extremities/Musculoskelatal: no pedal edema Neurologic/Psych: alert Skin: no rash Laboratory Results Last 24 Hours Test 09/17/17 03:56 09/17/17 04:05 09/17/17 05:07 09/17/17 05:41 Bedside Glucose 102 mg/dl White Blood Count 35.80 K/uL Red Blood Count 4.08 M/uL Hemoglobin 11.0 g/dL Hematocrit 30.3 % Mean Corpuscular Volume 74.3 fL Mean Corpuscular Hemoglobin 27.0 pg Mean Corpuscular Hemoglobin Concent 36.3 g/dl Platelet Count 74 K/uL RDW Standard Deviation 38.9 fL RDW Coefficient of Variation 14.4 % Nucleated RBC Absolute Count (auto) 0.05 K/uL Neutrophils % (Manual) 89.6 % Lymphocytes % (Manual) 1.7 % Monocytes % (Manual) 3.5 % Metamyelocytes % 5.2 % Nucleated Red Blood Cells % 0.1 % Neutrophils # (Manual) 32.08 K/uL Total Absolute Neutrophils 32.08 K/uL Lymphocytes # (Manual) 0.61 K/uL Total Absolute Lymphocytes 0.61 K/uL Monocytes # (Manual) 1.25 K/uL Metamyelocytes # 1.86 K/uL Toxic Vacuolation 2+ Platelet Estimate DECREASED Echinocytes 2+ Peripheral Blood Smear Path Consult Sodium Level 135 mmol/L Potassium Level 4.0 mmol/L Chloride Level 102 mmol/L Carbon Dioxide Level 16 mmol/L Anion Gap 17.0 mmol/L Blood Urea Nitrogen 107 mg/dl Creatinine 6.51 mg/dl Est Creatinine Clear Calc Drug Dose 10.0 ml/min Estimated GFR () 8.9 Estimated GFR (Non- 7.7 BUN/Creatinine Ratio 16.5 Random Glucose 84 mg/dl Calcium Level 8.9 mg/dl Magnesium Level 2.3 mg/dl Total Bilirubin 10.4 mg/dl Direct Bilirubin 8.2 mg/dl Aspartate Amino Transf (AST/SGOT) 79 U/L Alanine Aminotransferase (ALT/SGPT) 56 U/L Alkaline Phosphatase 716 U/L Total Creatine Kinase 38 U/L Creatine Kinase MB < 0.5 ng/ml Creatine Kinase MB Ratio Total Protein 6.6 gm/dl Albumin 2.0 gm/dl Bedside Lactic Acid Venous 5.46 mmol/L Urine Color ORANGE Urine Appearance TURBID Urine pH 5.0 Urine Specific [place] 1.020 Urine Protein 1+ Urine Glucose (UA) NEG Urine Ketones NEG Urine Occult Blood 3+ Urine Nitrite POS Urine Bilirubin NEG Urine Urobilinogen NEG Urine Leukocyte Esterase LARGE Urine WBC (Auto) >30 /hpf Urine RBC (Auto) >30 /hpf Urine Hyaline Casts (Auto) 0 /lpf Urine Epithelial Cells (Auto) 10-20 /lpf Urine Bacteria (Auto) 2+ Urine Pathogenic Casts /lpf Urine Yeast (Auto) Test 09/17/17 08:24 09/17/17 09:46 09/17/17 12:08 09/17/17 12:55 Arterial Blood pH 7.41 Arterial Blood Partial Pressure CO2 26 mmHg Arterial Blood Partial Pressure O2 68 mm/Hg Arterial Blood HCO3 16 mmol/L Arterial Blood Oxygen Saturation 92.1 % Arterial Blood Base Excess -7.1 mEq/L Arterial Blood Gas Delivery RA Román Test POS Sodium Level 137 mmol/L Potassium Level 4.4 mmol/L Chloride Level 105 mmol/L Carbon Dioxide Level 18 mmol/L Anion Gap 14.0 mmol/L Blood Urea Nitrogen 106 mg/dl Creatinine 5.94 mg/dl Est Creatinine Clear Calc Drug Dose 10.9 ml/min Estimated GFR () 9.9 Estimated GFR (Non- 8.6 BUN/Creatinine Ratio 17.8 Random Glucose 142 mg/dl Lactic Acid Level 2.4 mmol/L Calcium Level 8.4 mg/dl Bedside Glucose 140 mg/dl Prothrombin Time 12.3 SECONDS Prothromb Time International Ratio 1.2 Activated Partial Thromboplast Time 34.1 SECONDS Partial Thromboplastin Ratio 1.3 Test 09/17/17 17:20 Sodium Level 140 mmol/L Potassium Level 4.0 mmol/L Chloride Level 109 mmol/L Carbon Dioxide Level 18 mmol/L Anion Gap 12.0 mmol/L Blood Urea Nitrogen 107 mg/dl Creatinine 5.53 mg/dl Est Creatinine Clear Calc Drug Dose 11.7 ml/min Estimated GFR () 10.8 Estimated GFR (Non- 9.3 BUN/Creatinine Ratio 19.4 Random Glucose 126 mg/dl Osmolality 330 mOsm/kg Lactic Acid Level 1.6 mmol/L Calcium Level 8.0 mg/dl Phosphorus Level 3.6 mg/dl Magnesium Level 2.5 mg/dl Total Bilirubin 11.0 mg/dl Direct Bilirubin 8.7 mg/dl Aspartate Amino Transf (AST/SGOT) 76 U/L Alanine Aminotransferase (ALT/SGPT) 56 U/L Alkaline Phosphatase 397 U/L Troponin I 0.067 ng/ml Total Protein 6.0 gm/dl Albumin 1.6 gm/dl Lipase 202 U/L Prostate Specific Antigen 74.600 ng/ml Assessment & Plan 09/17/17- His gb appears to be relatively contracted and I don't thick it is necrotic to cause a T Bili of 11 w/o significant bilious ascites. Could possibly be intrinsic hepatic problem or CBD obstr although does not seem to be significantly dilated. I do not think he requires urgent surgery or cholecystostomy tube yet. GI eval may help
[2017-09-17 18:48] LABS: HEP C IGG 13 YRS+OLDER_RFLX NEG (NEG)
[2017-09-17] MEDS ORDERED: FENTANYL CITRATE INJ 50 MCG/1 ML 2 ML VIAL IV ONE (22:30)
[2017-09-18] VITALS (52 sets, daily range): BP systolic 112–153; BP diastolic 63–101; PULSE 89–126; TEMP 36.6–36.8; O2SAT 89–96
[2017-09-18] MEDS: PIPERACILL/TAZOBAC IV 4.5 GM in DEXTROSE 5% 100ML IV SCH ×2 (02:43→15:55)
[2017-09-18] MEDS ORDERED: FENTANYL CITRATE INJ 50 MCG/1 ML 2 ML VIAL ONE ×2 (03:27→22:40)
[2017-09-18] MEDS ORDERED: NURSING VERBAL MED ORDER ONE (03:30)
[2017-09-18] MEDS: HEPARIN SOD 5000 UNIT/0.5 ML CARP SQ SCH (04:41)
[2017-09-18] MEDS: SODIUM CHLORIDE 0.9% 1000ML 1,000 ML IV SCH (06:11)
[2017-09-18 06:12] LABS: INR 1.2 (0.9-1.1); PTT PATIENT 31.9 SECONDS (21.0-31.0)
[2017-09-18 06:34] LABS: ALBUMIN 1.5 gm/dl (3.4-5.0); CALCIUM 7.8 mg/dl (8.5-10.1); CREATININE 5.63 mg/dl (0.60-1.40); PHOSPHORUS 3.8 mg/dl (2.5-4.9); POTASSIUM 3.9 mmol/L (3.5-5.1); TOTAL PROTEIN 5.9 gm/dl (6.4-8.2)
--- NOTE | 2017-09-18 06:48 | Surgery Progress Note ---
Surgery Progress Note Date of Service Sep 18, 2017. Subjective pt awake, alert, no distress- normal affect no abd pain gm neg bacilli in blood culture Objective Vital Signs: Date Time Temp Pulse Resp B/P (MAP) Pulse Ox O2 Delivery O2 Flow Rate FiO2 09/18/17 06:01 109 41 124/68 (86) 94 09/18/17 06:00 112 33 93 09/18/17 05:01 105 32 121/64 (83) 90 09/18/17 05:00 106 35 09/18/17 04:04 91 Room Air 09/18/17 04:01 108 35 126/64 (84) 90 09/18/17 04:00 36.8 111 36 09/18/17 03:01 108 24 124/66 (85) 92 09/18/17 03:00 105 28 89 09/18/17 02:01 107 34 124/63 (83) 90 09/18/17 02:00 102 33 09/18/17 01:01 104 34 127/63 (84) 91 09/18/17 01:00 111 34 09/18/17 00:05 91 Room Air 09/18/17 00:01 102 29 121/68 (85) 92 09/18/17 00:00 36.8 101 31 92 /18 23:01 101 26 111/64 (80) 91 09/17/17 23:00 101 35 91 18 22:01 115 24 129/68 (88) 93 18 22:00 107 35 92 18 21:01 101 29 120/71 (87) 91 09/17/17 21:00 99 34 Room Air 18 20:01 36.7 98 34 116/66 (83) 91 18 20:00 91 Room Air 18 20:00 95 36 18 19:01 97 33 126/64 (84) 92 18 19:00 94 31 91 18 17:00 111 27 137/67 (90) 91 Room Air 2/18 16:00 93 Room Air 22/18 16:00 36.6 102 32 122/59 (80) 93 Room Air 2/18 15:00 104 34 131/63 (85) 95 Room Air 2/18 14:00 102 34 119/64 (82) 92 Room Air 09/17/17 13:00 110 27 132/82 (99) 93 Room Air 09/17/17 12:44 93 Room Air 09/17/17 12:00 36.7 108 30 124/61 (82) 93 Room Air 09/17/17 11:00 113 27 121/64 (83) 96 Room Air 09/17/17 10:00 113 22 112/63 (79) 91 Room Air 09/17/17 09:30 95 Room Air 09/17/17 09:15 36.6 122 32 138/73 (94) 95 Room Air 09/17/17 09:00 117 32 136/64 94 09/17/17 08:01 128 24 122/63 95 Room Air 09/17/17 07:38 93 Room Air 09/17/17 07:04 121 General Appearance: no apparent distress Respiratory/Chest: no respiratory distress Abdomen: normal bowel sounds, non tender, soft Laboratory Results: Results Past 24 Hours Test 09/17/17 08:24 09/17/17 09:46 09/17/17 12:08 09/17/17 12:55 Range/Units Arterial Blood pH 7.41 7.35-7.45 Arterial Blood Partial Pressure CO2 26 35-46 mmHg Arterial Blood Partial Pressure O2 68 80-95 mm/Hg Arterial Blood HCO3 16 19-24 mmol/L Arterial Blood Oxygen Saturation 92.1 90-95 % Arterial Blood Base Excess -7.1 -9-1.8 mEq/L Arterial Blood Gas Delivery RA Román Test POS POS Sodium Level 137 136-145 mmol/L Potassium Level 4.4 3.5-5.1 mmol/L Chloride Level 105 98-107 mmol/L Carbon Dioxide Level 18 21-32 mmol/L Anion Gap 14.0 3-11 mmol/L Blood Urea Nitrogen 106 7-18 mg/dl Creatinine 5.94 0.60-1.40 mg/dl Est Creatinine Clear Calc Drug Dose 10.9 ml/min Estimated GFR () 9.9 Estimated GFR (Non- 8.6 BUN/Creatinine Ratio 17.8 10-20 Random Glucose 142 70-99 mg/dl Lactic Acid Level 2.4 0.4-2.0 mmol/L Calcium Level 8.4 8.5-10.1 mg/dl Bedside Glucose 140 70-99 mg/dl Prothrombin Time 12.3 9.0-12.0 SECONDS Prothromb Time International Ratio 1.2 0.9-1.1 Activated Partial Thromboplast Time 34.1 21.0-31.0 SECONDS Partial Thromboplastin Ratio 1.3 Test 09/17/17 17:20 09/18/17 00:33 09/18/17 05:26 09/18/17 05:38 Range/Units Sodium Level 140 143 136-145 mmol/L Potassium Level 4.0 3.9 3.5-5.1 mmol/L Chloride Level 109 113 98-107 mmol/L Carbon Dioxide Level 18 16 21-32 mmol/L Anion Gap 12.0 14.0 3-11 mmol/L Blood Urea Nitrogen 107 119 7-18 mg/dl Creatinine 5.53 5.63 0.60-1.40 mg/dl Est Creatinine Clear Calc Drug Dose 11.7 11.5 ml/min Estimated GFR () 10.8 10.6 Estimated GFR (Non- 9.3 9.1 BUN/Creatinine Ratio 19.4 21.2 10-20 Random Glucose 126 113 70-99 mg/dl Osmolality 330 280-300 mOsm/kg Lactic Acid Level 1.6 0.4-2.0 mmol/L Calcium Level 8.0 7.8 8.5-10.1 mg/dl Phosphorus Level 3.6 3.8 2.5-4.9 mg/dl Magnesium Level 2.5 2.7 1.8-2.4 mg/dl Total Bilirubin 11.0 11.0 0.2-1 mg/dl Direct Bilirubin 8.7 8.9 0-0.2 mg/dl Aspartate Amino Transf (AST/SGOT) 76 81 15-37 U/L Alanine Aminotransferase (ALT/SGPT) 56 59 12-78 U/L Alkaline Phosphatase 397 412 45-117 U/L Troponin I 0.067 0.126 0-0.045 ng/ml Total Protein 6.0 5.9 6.4-8.2 gm/dl Albumin 1.6 1.5 3.4-5.0 gm/dl Lipase 202 73-393 U/L Prostate Specific Antigen 74.600 0.000-4.000 ng/ml Hepatitis B Surface Antigen NEG NEG Hepatitis C Antibody NEG NEG Prothrombin Time 12.6 9.0-12.0 SECONDS Prothromb Time International Ratio 1.2 0.9-1.1 Activated Partial Thromboplast Time 31.9 21.0-31.0 SECONDS Partial Thromboplastin Ratio 1.2 Bedside Glucose 111 70-99 mg/dl Microbiology Results 09/17/17 MRSA DNA Surveillance Screen - Final, Complete Specimen Negative for MRSA by DNA Probe Assessment & Plan 09/18/17- does not appear to have necrotizing cholecystitis or need urgent surgery. Will be interesting to see if urine and blood are same organism. GI evaluation pending. check am labs
[2017-09-18] MEDS: ASPIRIN 81 MG ECTAB PO SCH (07:41)
[2017-09-18] MEDS: PANTOprazole SOD 40 MG TAB PO SCH (07:41)
[2017-09-18] MEDS: LIDODERM (LIDOCAINE) PATCH 5% TD SCH (07:41)
[2017-09-18 08:21] LABS: BASO % 0.2 %; BASO ABS # 0.05 K/uL (0-0.2); HEMOGLOBIN 11.1 g/dL (14.0-18.0); IG# 0.24 K/uL (0.00-0.02); LYMPH % 2.1 %; LYMPH ABS # 0.67 K/uL (1.2-3.4); MEAN CELL VOLUME 71.4 fL (80-100); MEAN CORPUSCULAR HEMOGLOBIN 26.4 pg (25-34); MONO % 5.2 %; MONO ABS # 1.68 K/uL (0.11-0.59); NEUT % 91.8 %; NEUT ABS # 29.89 K/uL (1.4-6.5); PLATELET COUNT 46 K/uL (130-400); RED CELL DISTRIBUTION WIDTH CV 14.3 % (11.5-14.5); RED CELL DISTRIBUTION WIDTH SD 36.9 fL (36.4-46.3); WHITE BLOOD COUNT 32.53 K/uL (4.8-10.8)
--- NOTE | 2017-09-18 08:26 | Critical Care Progress Note ---
Critical Care Progress Note Date of Service Sep 18, 2017. ICU Day ICU Day Number: [address] Morris Subjective Patient feels improved from yesterday. Denies chest pain shortness of breath fevers chills Objective General Appearance: WD/WN, no apparent distress Head: normocephalic, atraumatic Eyes: PERRLA, EOMI Neck: Supple Respiratory: breath sounds normal, clear to auscultation, no respiratory distress Cardiovasular: normal S1S2, no M/G/R, no murmur, no gallop, no rub, no JVD, irregular rate (tachycardia) Abdomen: non tender, normal bowel sounds, no rebound, no masses, no guarding, no organomegaly Genitourinary - Male: other (vega present) Assessment & Plan Reason Critically Ill: Severe sepsis: Gram-negative bacteremia, high gap metabolic acidosis secondary to uremia PLAN: Neuro: * Fentanyl when necessary for pain control Resp: Respiratory compensation of high gap metabolic acidosis * Significant tachypnea CV: Tachycardia Improved Fluids/Renal: Acute kidney injury * Hopefully BUN and creatinine have started to ed * Produced roughly half cc per kilo urine yesterday BPH High gap metabolic acidosis likely secondary to uremia ID: Severe sepsis Gram-negative bacteremia * Likely urinary source * Had Vega catheter placed 14 days ago secondary to urinary retention likely secondary to BPH * Catheter replaced in emergency department 09/17/17 05:41 * Zosyn Repeat blood cultures GI/Nutrition: History of Hepatitis A Hyperbilirubinemia * GI consult pending Thickened gallbladder * Reviewed general surgery recommendations * Nonoperative management at this time Heme: Anemia Thrombocytopenia Endocrine: Accu-Cheks per protocol Patient consented for hemodialysis catheter in case he moves towards requiring dialysis. I have personally spent 45 minutes of critical care time in the direct management of this patient. This is a life/limb threatening event. This includes time spent evaluating patient, direct bedside care, chart review, placing orders, interpretation of diagnostic studies, discussion with consultants, patient, and/or family members regarding treatment decisions, as well as other required patient management activities. This time is exclusive of all separately billable procedures, and teaching time and separate from and in addition to any other critical care service time. Consults & Procedures Consultants: General surgery: Gastroenterology Nephrology Critical care medicine Data Medications: Current Inpatient Medications Medications (Trade) Dose Ordered Sig/Candelaria Route Start Time Stop Time Status Last Admin Dose Admin Miscellaneous Information (Consult) 1 ea UD PRN N/A 09/17/17 08:21 10/17/17 08:20 Heparin Sodium (Porcine) (Heparin Sq 5000 Unit/0.5ml) 5,000 unit Q12H SQ 09/17/17 17:00 10/17/17 16:59 09/18/17 04:41 5,000 UNIT Sodium Chloride 1,000 ml @ 100 mls/hr Q10H IV 09/17/17 10:30 10/17/17 10:29 09/18/17 06:11 100 MLS/HR Aspirin (Ecotrin Tab) 81 mg QAM PO 09/17/17 13:00 10/17/17 12:59 09/18/17 07:41 81 MG Al Hydrox/Mg Hydrox/Simethicone (Maalox Max Susp) 15 ml Q4H PRN PO 09/17/17 08:30 10/17/17 08:29 Pantoprazole Sodium (Protonix Tab) 40 mg DAILY PO 09/17/17 09:00 09/20/17 09:01 09/18/17 07:41 40 MG Miscellaneous Information (Icu Protocol For Hyperglycemia) 1 ea PRN PRN N/A 09/17/17 08:30 09/19/17 08:29 Lidocaine (Lidoderm Patch 5%) 1 patch QAM TD 09/18/17 09:00 10/18/17 08:59 09/18/17 07:41 1 PATCH Miscellaneous (Remove Lidoderm Patch) 1 ea DAILY@21 N/A 09/17/17 21:00 10/17/17 20:59 09/18/17 03:37 1 EA Piperacillin Sod/ Tazobactam Sod 4.5 gm/Dextrose 120 ml @ 30 mls/hr Q12H IV 09/17/17 15:00 09/27/17 14:59 09/18/17 02:43 30 MLS/HR Vital Signs: Date Time Temp Pulse Resp B/P (MAP) Pulse Ox O2 Delivery O2 Flow Rate FiO2 09/18/17 07:22 94 Room Air 09/18/17 07:22 36.8 113 41 124/68 (86) 93 Room Air 09/18/17 06:01 109 41 124/68 (86) 94 2/3/18 06:00 112 33 93 2/3/18 05:01 105 32 121/64 (83) 90 2/3/18 05:00 106 35 2/3/18 04:04 91 Room Air 2/3/18 04:01 108 35 126/64 (84) 90 2/3/18 04:00 36.8 111 36 2/3/18 03:01 108 24 124/66 (85) 92 2/3/18 03:00 105 28 89 2/3/18 02:01 107 34 124/63 (83) 90 2/3/18 02:00 102 33 2/3/18 01:01 104 34 127/63 (84) 91 2/3/18 01:00 111 34 2/3/18 00:05 91 Room Air 2/3/18 00:01 102 29 121/68 (85) 92 2/3/18 00:00 36.8 101 31 92 2/2/18 23:01 101 26 111/64 (80) 91 2/2/18 23:00 101 35 91 2/2/18 22:01 115 24 129/68 (88) 93 2/2/18 22:00 107 35 92 2/2/18 21:01 101 29 120/71 (87) 91 2/2/18 21:00 99 34 Room Air 2/2/18 20:01 36.7 98 34 116/66 (83) 91 2/2/18 20:00 91 Room Air 2/2/18 20:00 95 36 2/2/18 19:01 97 33 126/64 (84) 92 2/2/18 19:00 94 31 91 2/2/18 17:00 111 27 137/67 (90) 91 Room Air 2/2/18 16:00 93 Room Air 2/2/18 16:00 36.6 102 32 122/59 (80) 93 Room Air 2/2/18 15:00 104 34 131/63 (85) 95 Room Air 2/2/18 14:00 102 34 119/64 (82) 92 Room Air 2/2/18 13:00 110 27 132/82 (99) 93 Room Air 2/2/18 12:44 93 Room Air 2/2/18 12:00 36.7 108 30 124/61 (82) 93 Room Air 2/2/18 11:00 113 27 121/64 (83) 96 Room Air 09/17/17 10:00 113 22 112/63 (79) 91 Room Air 09/17/17 09:30 95 Room Air 09/17/17 09:15 36.6 122 32 138/73 (94) 95 Room Air 09/17/17 09:00 117 32 136/64 94 09/17/17 08:01 128 24 122/63 95 Room Air Laboratory Results: Last 24 Hours Test 09/17/17 08:24 09/17/17 09:46 09/17/17 12:08 09/17/17 12:55 Arterial Blood pH 7.41 Arterial Blood Partial Pressure CO2 26 mmHg Arterial Blood Partial Pressure O2 68 mm/Hg Arterial Blood HCO3 16 mmol/L Arterial Blood Oxygen Saturation 92.1 % Arterial Blood Base Excess -7.1 mEq/L Arterial Blood Gas Delivery RA Román Test POS Sodium Level 137 mmol/L Potassium Level 4.4 mmol/L Chloride Level 105 mmol/L Carbon Dioxide Level 18 mmol/L Anion Gap 14.0 mmol/L Blood Urea Nitrogen 106 mg/dl Creatinine 5.94 mg/dl Est Creatinine Clear Calc Drug Dose 10.9 ml/min Estimated GFR () 9.9 Estimated GFR (Non- 8.6 BUN/Creatinine Ratio 17.8 Random Glucose 142 mg/dl Lactic Acid Level 2.4 mmol/L Calcium Level 8.4 mg/dl Bedside Glucose 140 mg/dl Prothrombin Time 12.3 SECONDS Prothromb Time International Ratio 1.2 Activated Partial Thromboplast Time 34.1 SECONDS Partial Thromboplastin Ratio 1.3 Test 09/17/17 17:20 09/18/17 00:33 09/18/17 05:26 09/18/17 05:38 Sodium Level 140 mmol/L 143 mmol/L Potassium Level 4.0 mmol/L 3.9 mmol/L Chloride Level 109 mmol/L 113 mmol/L Carbon Dioxide Level 18 mmol/L 16 mmol/L Anion Gap 12.0 mmol/L 14.0 mmol/L Blood Urea Nitrogen 107 mg/dl 119 mg/dl Creatinine 5.53 mg/dl 5.63 mg/dl Est Creatinine Clear Calc Drug Dose 11.7 ml/min 11.5 ml/min Estimated GFR () 10.8 10.6 Estimated GFR (Non- 9.3 9.1 BUN/Creatinine Ratio 19.4 21.2 Random Glucose 126 mg/dl 113 mg/dl Osmolality 330 mOsm/kg Lactic Acid Level 1.6 mmol/L Calcium Level 8.0 mg/dl 7.8 mg/dl Phosphorus Level 3.6 mg/dl 3.8 mg/dl Magnesium Level 2.5 mg/dl 2.7 mg/dl Total Bilirubin 11.0 mg/dl 11.0 mg/dl Direct Bilirubin 8.7 mg/dl 8.9 mg/dl Aspartate Amino Transf (AST/SGOT) 76 U/L 81 U/L Alanine Aminotransferase (ALT/SGPT) 56 U/L 59 U/L Alkaline Phosphatase 397 U/L 412 U/L Troponin I 0.067 ng/ml 0.126 ng/ml Total Protein 6.0 gm/dl 5.9 gm/dl Albumin 1.6 gm/dl 1.5 gm/dl Lipase 202 U/L Prostate Specific Antigen 74.600 ng/ml Hepatitis B Surface Antigen NEG Hepatitis C Antibody NEG Prothrombin Time 12.6 SECONDS Prothromb Time International Ratio 1.2 Activated Partial Thromboplast Time 31.9 SECONDS Partial Thromboplastin Ratio 1.2 Bedside Glucose 111 mg/dl
--- NOTE | 2017-09-18 09:57 | Gastrointestinal Consultation ---
Gastrointestinal Consultation Date of Consultation: Sep 18, 2017 Attending Physician: Dr. Morris Consulting Physician: Dr. Eckert Reason for Consultation: elevated bilirubin History of Present Illness Patient is a 72 year old male with BPH, DM, HTN presenting with a history of difficulty passing urine approx 2 weeks go who subsequently had a vega placed who presented to the ER with nausea, fatigue, generalized weakness and hip pain. On admission he was noted to be in acute renal failure with creatinine of 6 (baseline around 1.3) as well as severe sepsis with acidosis and profound leukocytosis. His blood cultures are gorwing gram negative rods and the urine appears to be the source. He is also noted to have elevated alkaline phosphatase and bilirubin in the setting of a non-cirrhotic appearing liver and no evidence of biliary dilation or stones. He has a remote history of hepatitis A but no history of chronic hepatitis from any cause. Feeling better today. Labs are slowly trending toward improvement. Denies any abdominal pain. Mild nausea. No vomiting. 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) Allergies Coded Allergies: No Known Allergies (Unverified , 09/17/17) Current Medications Home Meds and Scripts Medications Dose Route/Sig Max Daily Dose Days Date Category Flomax (Tamsulosin Hcl) 0.4 Mg Cap 0.4 Mg PO BID 09/17/17 Reported Hctz (Hydrochlorothiazide) 25 Mg Tab 25 Mg PO DAILY 09/17/17 Reported Proscar (Finasteride) 5 Mg Tab 5 Mg PO DAILY 09/17/17 Reported Mevacor (Lovastatin) 20 Mg Tab 20 Mg PO HS 09/17/17 Reported Lopressor (Metoprolol Tartrate) 25 Mg Tab 25 Mg PO BID 09/17/17 Reported Naprosyn (Naproxen) 500 Mg Tab 500 Mg PO BID 09/17/17 Reported Tylenol (Acetaminophen) 500 Mg Tab 500 Mg PO TID 09/17/17 Reported Vasotec (Enalapril Maleate) 20 Mg Tab 1 Tab PO DAILY 09/17/17 Reported Aspirin Ec (Aspirin) 81 Mg Tab 81 Mg PO DAILY 09/17/17 Reported Zyrtec (Cetirizine HCl) 10 Mg Tab 10 Mg PO DAILY 09/17/17 Reported Norvasc (Amlodipine Besylate) 10 Mg Tab 10 Mg PO DAILY 09/17/17 Reported Review of Systems 12 systems reviewed and negative except as noted Physical Exam Date Time Temp Pulse Resp B/P (MAP) Pulse Ox O2 Delivery O2 Flow Rate FiO2 09/18/17 07:22 94 Room Air 09/18/17 07:22 36.8 113 41 124/68 (86) 93 Room Air 09/18/17 06:01 109 41 124/68 (86) 94 09/18/17 06:00 112 33 93 09/18/17 05:01 105 32 121/64 (83) 90 09/18/17 05:00 106 35 09/18/17 04:04 91 Room Air 09/18/17 04:01 108 35 126/64 (84) 90 09/18/17 04:00 36.8 111 36 09/18/17 03:01 108 24 124/66 (85) 92 09/18/17 03:00 105 28 89 09/18/17 02:01 107 34 124/63 (83) 90 09/18/17 02:00 102 33 09/18/17 01:01 104 34 127/63 (84) 91 09/18/17 01:00 111 34 09/18/17 00:05 91 Room Air 09/18/17 00:01 102 29 121/68 (85) 92 09/18/17 00:00 36.8 101 31 92 09/17/17 23:01 101 26 111/64 (80) 91 09/17/17 23:00 101 35 91 09/17/17 22:01 115 24 129/68 (88) 93 09/17/17 22:00 107 35 92 09/17/17 21:01 101 29 120/71 (87) 91 09/17/17 21:00 99 34 Room Air 09/17/17 20:01 36.7 98 34 116/66 (83) 91 09/17/17 20:00 91 Room Air 09/17/17 20:00 95 36 09/17/17 19:01 97 33 126/64 (84) 92 09/17/17 19:00 94 31 91 09/17/17 17:00 111 27 137/67 (90) 91 Room Air 09/17/17 16:00 93 Room Air 09/17/17 16:00 36.6 102 32 122/59 (80) 93 Room Air 09/17/17 15:00 104 34 131/63 (85) 95 Room Air 09/17/17 14:00 102 34 119/64 (82) 92 Room Air 09/17/17 13:00 110 27 132/82 (99) 93 Room Air 09/17/17 12:44 93 Room Air 09/17/17 12:00 36.7 108 30 124/61 (82) 93 Room Air 09/17/17 11:00 113 27 121/64 (83) 96 Room Air 09/17/17 10:00 113 22 112/63 (79) 91 Room Air General Appearance: WD/WN, no apparent distress Eyes: PERRL, + pertinent finding (scleral icterus) ENT: normal ENT inspection, pharynx normal Neck: supple, no adenopathy, no JVD Respiratory/Chest: chest non-tender, lungs clear, normal breath sounds, no respiratory distress Cardiovascular: + tachycardia Abdomen: normal bowel sounds, non tender, soft Extremities: normal range of motion, non-tender Neurologic/Psych: artists' model II-XII nml as tested, no motor/sensory deficits, alert, normal mood/affect, oriented x 3 Skin: warm/dry, no rash, + jaundice Laboratory Results Last 24 Hours Test 09/17/17 09:46 09/17/17 12:08 09/17/17 12:55 09/17/17 17:20 Sodium Level 137 mmol/L 140 mmol/L Potassium Level 4.4 mmol/L 4.0 mmol/L Chloride Level 105 mmol/L 109 mmol/L Carbon Dioxide Level 18 mmol/L 18 mmol/L Anion Gap 14.0 mmol/L 12.0 mmol/L Blood Urea Nitrogen 106 mg/dl 107 mg/dl Creatinine 5.94 mg/dl 5.53 mg/dl Est Creatinine Clear Calc Drug Dose 10.9 ml/min 11.7 ml/min Estimated GFR () 9.9 10.8 Estimated GFR (Non- 8.6 9.3 BUN/Creatinine Ratio 17.8 19.4 Random Glucose 142 mg/dl 126 mg/dl Lactic Acid Level 2.4 mmol/L 1.6 mmol/L Calcium Level 8.4 mg/dl 8.0 mg/dl Bedside Glucose 140 mg/dl Prothrombin Time 12.3 SECONDS Prothromb Time International Ratio 1.2 Activated Partial Thromboplast Time 34.1 SECONDS Partial Thromboplastin Ratio 1.3 Osmolality 330 mOsm/kg Phosphorus Level 3.6 mg/dl Magnesium Level 2.5 mg/dl Total Bilirubin 11.0 mg/dl Direct Bilirubin 8.7 mg/dl Aspartate Amino Transf (AST/SGOT) 76 U/L Alanine Aminotransferase (ALT/SGPT) 56 U/L Alkaline Phosphatase 397 U/L Troponin I 0.067 ng/ml Total Protein 6.0 gm/dl Albumin 1.6 gm/dl Lipase 202 U/L Prostate Specific Antigen 74.600 ng/ml Hepatitis B Surface Antigen NEG Hepatitis C Antibody NEG Test 09/18/17 00:33 09/18/17 05:26 09/18/17 05:38 09/18/17 09:20 Troponin I 0.126 ng/ml White Blood Count 32.53 K/uL Red Blood Count 4.20 M/uL Hemoglobin 11.1 g/dL Hematocrit 30.0 % Mean Corpuscular Volume 71.4 fL Mean Corpuscular Hemoglobin 26.4 pg Mean Corpuscular Hemoglobin Concent 37.0 g/dl Platelet Count 46 K/uL Neutrophils (%) (Auto) 91.8 % Lymphocytes (%) (Auto) 2.1 % Monocytes (%) (Auto) 5.2 % Eosinophils (%) (Auto) 0.0 % Basophils (%) (Auto) 0.2 % Neutrophils # (Auto) 29.89 K/uL Lymphocytes # (Auto) 0.67 K/uL Monocytes # (Auto) 1.68 K/uL Eosinophils # (Auto) 0.00 K/uL Basophils # (Auto) 0.05 K/uL RDW Standard Deviation 36.9 fL RDW Coefficient of Variation 14.3 % Immature Granulocyte % (Auto) 0.7 % Immature Granulocyte # (Auto) 0.24 K/uL Toxic Granulation 1+ Toxic Vacuolation 1+ Dohle Bodies 1+ Platelet Estimate DECREASED Echinocytes 2+ Prothrombin Time 12.6 SECONDS Prothromb Time International Ratio 1.2 Activated Partial Thromboplast Time 31.9 SECONDS Partial Thromboplastin Ratio 1.2 Sodium Level 143 mmol/L Potassium Level 3.9 mmol/L Chloride Level 113 mmol/L Carbon Dioxide Level 16 mmol/L Anion Gap 14.0 mmol/L Blood Urea Nitrogen 119 mg/dl Creatinine 5.63 mg/dl Est Creatinine Clear Calc Drug Dose 11.5 ml/min Estimated GFR () 10.6 Estimated GFR (Non- 9.1 BUN/Creatinine Ratio 21.2 Random Glucose 113 mg/dl Calcium Level 7.8 mg/dl Phosphorus Level 3.8 mg/dl Magnesium Level 2.7 mg/dl Total Bilirubin 11.0 mg/dl Direct Bilirubin 8.9 mg/dl Aspartate Amino Transf (AST/SGOT) 81 U/L Alanine Aminotransferase (ALT/SGPT) 59 U/L Alkaline Phosphatase 412 U/L Total Protein 5.9 gm/dl Albumin 1.5 gm/dl Bedside Glucose 111 mg/dl Test 09/18/17 09:30 Impression Patient is a 72 year old male with recent history of urinary retention and placement of a vega admitted with severe gram negative sepsis (source appears to be the urine) with associated renal injury as well as elevated liver enzymes (cholestatic) related to sepsis. No indication of biliary obstruction on CT or US. Plan - Would continue to treat him for sepsis. - If there is any concern for biliary obstruction, can consider an MRCP. - Follow LFTs daily.
--- NOTE | 2017-09-18 10:00 | Nephrology Progress Note ---
Nephrology Progress Note Date of Service Sep 18, 2017. Chief Complaint Acute renal insufficiency Subjective No acute events overnight. Surgery consult reviewed. Brett states that he feels well this morning. He denies fevers or chills. He denies abdominal pain. No diarrhea. No shortness of breath. No chest pain or palpitations. Review of Systems A complete review of systems was performed. Pertinent positives are noted above. All other systems are negative. Vital Signs Last 8 Hrs Date Time Temp Pulse Resp B/P (MAP) Pulse Ox O2 Delivery O2 Flow Rate FiO2 09/18/17 07:22 94 Room Air 09/18/17 07:22 36.8 113 41 124/68 (86) 93 Room Air 09/18/17 06:01 109 41 124/68 (86) 94 09/18/17 06:00 112 33 93 09/18/17 05:01 105 32 121/64 (83) 90 09/18/17 05:00 106 35 09/18/17 04:04 91 Room Air 09/18/17 04:01 108 35 126/64 (84) 90 09/18/17 04:00 36.8 111 36 09/18/17 03:01 108 24 124/66 (85) 92 09/18/17 03:00 105 28 89 09/18/17 02:01 107 34 124/63 (83) 90 09/18/17 02:00 102 33 Last Recorded Weight Weight (Kilograms): 77.100 Physical Exam General Appearance: WD/WN, no apparent distress Head: normocephalic, atraumatic Eyes: normal inspection, + pertinent finding (icteric) ENT: normal ENT inspection, pharynx normal, + pertinent finding (oral mucosa slightly dry) Neck: supple, no JVD Respiratory/Chest: lungs clear, no respiratory distress, no accessory muscle use Cardiovascular: no gallop, no murmur, + tachycardia Abdomen/GI: normal bowel sounds, + distended Genitourinary - Male: + pertinent finding (Hamm draining tea colored urine) Extremities/Musculoskelatal: normal inspection, no pedal edema Neurologic/Psych: alert, normal mood/affect Social History Smokeless Tobacco Use: No Alcohol Use: none Drug Use: none 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) Laboratory Results Past 24 Hours 09/18/17 05:26 Red Blood Count 4.20, Mean Corpuscular Volume 71.4, Mean Corpuscular Hemoglobin 26.4, Mean Corpuscular Hemoglobin Concent 37.0, Neutrophils (%) (Auto) 91.8, Lymphocytes (%) (Auto) 2.1, Monocytes (%) (Auto) 5.2, Eosinophils (%) (Auto) 0.0 , Basophils (%) (Auto) 0.2, Neutrophils # (Auto) 29.89, Lymphocytes # (Auto) 0.67, Monocytes # (Auto) 1.68, Eosinophils # (Auto) 0.00, Basophils # (Auto) 0.05 09/17/17 17:20 09/18/17 05:26 Test 09/17/17 12:08 09/17/17 12:55 09/17/17 17:20 09/18/17 00:33 Bedside Glucose 140 mg/dl (70-99) Prothrombin Time 12.3 SECONDS (9.0-12.0) Prothromb Time International Ratio 1.2 (0.9-1.1) Activated Partial Thromboplast Time 34.1 SECONDS (21.0-31.0) Partial Thromboplastin Ratio 1.3 Anion Gap 12.0 mmol/L (3-11) Est Creatinine Clear Calc Drug Dose 11.7 ml/min Estimated GFR () 10.8 Estimated GFR (Non- 9.3 BUN/Creatinine Ratio 19.4 (10-20) Osmolality 330 mOsm/kg (280-300) Lactic Acid Level 1.6 mmol/L (0.4-2.0) Calcium Level 8.0 mg/dl (8.5-10.1) Phosphorus Level 3.6 mg/dl (2.5-4.9) Magnesium Level 2.5 mg/dl (1.8-2.4) Total Bilirubin 11.0 mg/dl (0.2-1) Direct Bilirubin 8.7 mg/dl (0-0.2) Aspartate Amino Transf (AST/SGOT) 76 U/L (15-37) Alanine Aminotransferase (ALT/SGPT) 56 U/L (12-78) Alkaline Phosphatase 397 U/L (45-117) Troponin I 0.067 ng/ml (0-0.045) 0.126 ng/ml (0-0.045) Total Protein 6.0 gm/dl (6.4-8.2) Albumin 1.6 gm/dl (3.4-5.0) Lipase 202 U/L (73-393) Prostate Specific Antigen 74.600 ng/ml (0.000-4.000) Hepatitis B Surface Antigen NEG (NEG) Hepatitis C Antibody NEG (NEG) Test 09/18/17 05:26 09/18/17 05:38 09/18/17 09:20 09/18/17 09:30 White Blood Count 32.53 K/uL (4.8-10.8) Red Blood Count 4.20 M/uL (4.7-6.1) Hemoglobin 11.1 g/dL (14.0-18.0) Hematocrit 30.0 % (42-52) Mean Corpuscular Volume 71.4 fL (80-100) Mean Corpuscular Hemoglobin 26.4 pg (25-34) Mean Corpuscular Hemoglobin Concent 37.0 g/dl (32-36) Platelet Count 46 K/uL (130-400) Neutrophils (%) (Auto) 91.8 % Lymphocytes (%) (Auto) 2.1 % Monocytes (%) (Auto) 5.2 % Eosinophils (%) (Auto) 0.0 % Basophils (%) (Auto) 0.2 % Neutrophils # (Auto) 29.89 K/uL (1.4-6.5) Lymphocytes # (Auto) 0.67 K/uL (1.2-3.4) Monocytes # (Auto) 1.68 K/uL (0.11-0.59) Eosinophils # (Auto) 0.00 K/uL (0-0.5) Basophils # (Auto) 0.05 K/uL (0-0.2) RDW Standard Deviation 36.9 fL (36.4-46.3) RDW Coefficient of Variation 14.3 % (11.5-14.5) Immature Granulocyte % (Auto) 0.7 % Immature Granulocyte # (Auto) 0.24 K/uL (0.00-0.02) Toxic Granulation 1+ Toxic Vacuolation 1+ Dohle Bodies 1+ Platelet Estimate DECREASED Echinocytes 2+ Prothrombin Time 12.6 SECONDS (9.0-12.0) Prothromb Time International Ratio 1.2 (0.9-1.1) Activated Partial Thromboplast Time 31.9 SECONDS (21.0-31.0) Partial Thromboplastin Ratio 1.2 Anion Gap 14.0 mmol/L (3-11) Est Creatinine Clear Calc Drug Dose 11.5 ml/min Estimated GFR () 10.6 Estimated GFR (Non- 9.1 BUN/Creatinine Ratio 21.2 (10-20) Calcium Level 7.8 mg/dl (8.5-10.1) Phosphorus Level 3.8 mg/dl (2.5-4.9) Magnesium Level 2.7 mg/dl (1.8-2.4) Total Bilirubin 11.0 mg/dl (0.2-1) Direct Bilirubin 8.9 mg/dl (0-0.2) Aspartate Amino Transf (AST/SGOT) 81 U/L (15-37) Alanine Aminotransferase (ALT/SGPT) 59 U/L (12-78) Alkaline Phosphatase 412 U/L (45-117) Total Protein 5.9 gm/dl (6.4-8.2) Albumin 1.5 gm/dl (3.4-5.0) Bedside Glucose 111 mg/dl (70-99) Allergies Coded Allergies: No Known Allergies (Unverified , 09/17/17) Medications Current Inpatient Medications Medications (Trade) Dose Ordered Sig/Candelaria Route Start Time Stop Time Status Last Admin Dose Admin Miscellaneous Information (Consult) 1 ea UD PRN N/A 09/17/17 08:21 10/17/17 08:20 Heparin Sodium (Porcine) (Heparin Sq 5000 Unit/0.5ml) 5,000 unit Q12H SQ 09/17/17 17:00 10/17/17 16:59 Future Hold 09/18/17 04:41 5,000 UNIT Aspirin (Ecotrin Tab) 81 mg QAM PO 09/17/17 13:00 10/17/17 12:59 09/18/17 07:41 81 MG Al Hydrox/Mg Hydrox/Simethicone (Maalox Max Susp) 15 ml Q4H PRN PO 09/17/17 08:30 10/17/17 08:29 Pantoprazole Sodium (Protonix Tab) 40 mg DAILY PO 09/17/17 09:00 09/20/17 09:01 09/18/17 07:41 40 MG Miscellaneous Information ([facility] Protocol For Hyperglycemia) 1 ea PRN PRN N/A 09/17/17 08:30 09/19/17 08:29 Lidocaine (Lidoderm Patch 5%) 1 patch QAM TD 09/18/17 09:00 10/18/17 08:59 09/18/17 07:41 1 PATCH Miscellaneous (Remove Lidoderm Patch) 1 ea DAILY@21 N/A 09/17/17 21:00 10/17/17 20:59 09/18/17 03:37 1 EA Piperacillin Sod/ Tazobactam Sod 4.5 gm/Dextrose 120 ml @ 30 mls/hr Q12H IV 09/17/17 15:00 09/27/17 14:59 09/18/17 02:43 30 MLS/HR Sodium Bicarbonate 75 meq/Sodium Chloride 1,075 ml @ 100 mls/hr [id number] IV 09/18/17 09:45 10/18/17 09:44 Impression (1) Leukocytosis (2) Thrombocytopenia (3) Anemia (4) Acute renal failure (5) Hyperbilirubinemia (6) UTI (urinary tract infection) Mr. Brett Emmanuel is a 72-year-old male inmate who was transferred from the [facility] for evaluation of progressive symptoms of weakness, anorexia, nausea, abdominal discomfort and hip pain. Clinical presentation consistent with severe sepsis. 1/2 blood cultures positive for gram negative rods. Urine culture NGTD. Patient is receiving treatment with Zosyn. He is afebrile and non-toxic appearing at this time. Lactate improved with supportive care including IVF. Medical history is notable for a BPH, urinary obstruction with chronic indwelling Hamm as well as an elevated PSA. Initial evaluation is notable for acute renal insufficiency, hyperbilirubinemia (direct), hypoalbuminemia, thrombocytopenia, anemia and a leukocytosis. Peripheral smear reviewed. No evidence of hematologic malignancy or hemolytic anemia. Platelet count continues to fall. INR and PTT slightly elevated. Will check FSP, fibrinogen and monitor. Prophylactic heparin held. HIT antibody requested. Noncontrast CT scan of the abdomen and pelvis was reviewed on admission. The kidneys are normal in appearance. There is no evidence of obstruction. Urine is turbid with gross hematuria. UA documented hematuria, proteinuria, pyuria. Culture NGTD. Liver is no cirrhotic appearing. Gallbladder is enlarged. RUQ US documented enlarged GB without obvious stone or obstruction. Volume status improved has received 4+ L of IV 0.9% saline. IV fluid switched to 1/2NS+75 mEq NaHCO3 this AM. UOP is appropriate; he is non oliguric. Blood pressure is acceptable. Volume status appears euvolemic. Regarding cholestasis, GI consult is pending. Surgery consult is appreciated. I am concerned regarding the history of hip pain and elevated PSA. Certainly, when the patient is stable, additional imaging may be necessary. SONY at this time is likely related to prerenal azotemia and ATN. Other etiologies such as GN or AIN would be considered significantly less likely. Creatinine has plateaued and eGFR remains less than 15. There is no current indication for renal replacement therapy. I did discuss the potential indications for dialysis with Brett this morning. We will continue to monitor. Recommendations -- 1/2NS+75 mEq NaHCO3 @ 100 ml/hr -- Repeat metabolic profile this afternoon -- Fibrinogen/FSP pending -- HIT ab pending -- Heparin held -- Peripheral blood smear reviewed -- Medications are appropriately dosed for renal function -- GI consult pending -- Consider x-ray hip when able
[2017-09-18] MEDS: SODIUM BICARBONATE 8.4% INJ 75 MEQ in SODIUM CHLORIDE 0.45% 1000ML 1,000 ML IV SCH ×2 (10:06→19:44)
--- NOTE | 2017-09-18 10:42 | Progress Note ---
Subjective Date of Service: Sep 18, 2017. [facility]ive [facility] reports [facility] much better. He states he no longer has generalized malaise. He continues to have left hip pain however. Problem List Medical Problems: (1) Acute renal failure Status: Acute (2) Hyperbilirubinemia Status: Acute (3) Leukocytosis Status: Acute (4) UTI (urinary tract infection) Status: Acute Review of Systems Constitutional: No fever, No chills ENT: No hearing loss Respiratory: No cough, No sputum Cardiac: + chest pain Abdomen: No pain, No nausea Musculoskeletal: + joint pain Neurologic: No memory loss Psychiatric: No depression symptoms, No anhedonism Endo: No fatigue Skin: No rash All Other Systems: Reviewed and Negative Medications Current Inpatient Medications Medications (Trade) Dose Ordered Sig/Candelaria Route Start Time Stop Time Status Last Admin Dose Admin Miscellaneous Information (Consult) 1 ea UD PRN N/A 09/17/17 08:21 10/17/17 08:20 Heparin Sodium (Porcine) (Heparin Sq 5000 Unit/0.5ml) 5,000 unit Q12H SQ 09/17/17 17:00 10/17/17 16:59 Future Hold 09/18/17 04:41 5,000 UNIT Aspirin (Ecotrin Tab) 81 mg QAM PO 09/17/17 13:00 10/17/17 12:59 09/18/17 07:41 81 MG Al Hydrox/Mg Hydrox/Simethicone (Maalox Max Susp) 15 ml Q4H PRN PO 09/17/17 08:30 10/17/17 08:29 Pantoprazole Sodium (Protonix Tab) 40 mg DAILY PO 09/17/17 09:00 09/20/17 09:01 09/18/17 07:41 40 MG Miscellaneous Information (Icu Protocol For Hyperglycemia) 1 ea PRN PRN N/A 09/17/17 08:30 09/19/17 08:29 Lidocaine (Lidoderm Patch 5%) 1 patch QAM TD 09/18/17 09:00 10/18/17 08:59 09/18/17 07:41 1 PATCH Miscellaneous (Remove Lidoderm Patch) 1 ea DAILY@21 N/A 09/17/17 21:00 10/17/17 20:59 09/18/17 03:37 1 EA Piperacillin Sod/ Tazobactam Sod 4.5 gm/Dextrose 120 ml @ 30 mls/hr Q12H IV 09/17/17 15:00 09/27/17 14:59 09/18/17 15:55 30 MLS/HR Sodium Bicarbonate 75 meq/Sodium Chloride 1,075 ml @ 100 mls/hr [id number] IV 09/18/17 09:45 10/18/17 09:44 09/18/17 19:44 100 MLS/HR Metoprolol Tartrate (Lopressor Tab) 25 mg BID PO 09/18/17 21:00 10/18/17 20:59 09/18/17 21:51 25 MG Amlodipine Besylate (Norvasc Tab) 10 mg QAM PO 09/19/17 09:00 10/19/17 08:59 Objective Vital Signs Date Time Temp Pulse Resp B/P (MAP) Pulse Ox O2 Delivery O2 Flow Rate FiO2 09/18/17 07:22 94 Room Air 09/18/17 07:22 36.8 113 41 124/68 (86) 93 Room Air 09/18/17 06:01 109 41 124/68 (86) 94 09/18/17 06:00 112 33 93 09/18/17 05:01 105 32 121/64 (83) 90 09/18/17 05:00 106 35 09/18/17 04:04 91 Room Air 09/18/17 04:01 108 35 126/64 (84) 90 09/18/17 04:00 36.8 111 36 09/18/17 03:01 108 24 124/66 (85) 92 09/18/17 03:00 105 28 89 09/18/17 02:01 107 34 124/63 (83) 90 09/18/17 02:00 102 33 09/18/17 01:01 104 34 127/63 (84) 91 09/18/17 01:00 111 34 09/18/17 00:05 91 Room Air 09/18/17 00:01 102 29 121/68 (85) 92 09/18/17 00:00 36.8 101 31 92 09/17/17 23:01 101 26 111/64 (80) 91 09/17/17 23:00 101 35 91 09/17/17 22:01 115 24 129/68 (88) 93 09/17/17 22:00 107 35 92 09/17/17 21:01 101 29 120/71 (87) 91 09/17/17 21:00 99 34 Room Air 09/17/17 20:01 36.7 98 34 116/66 (83) 91 09/17/17 20:00 91 Room Air 09/17/17 20:00 95 36 09/17/17 19:01 97 33 126/64 (84) 92 09/17/17 19:00 94 31 91 09/17/17 17:00 111 27 137/67 (90) 91 Room Air 09/17/17 16:00 93 Room Air 09/17/17 16:00 36.6 102 32 122/59 (80) 93 Room Air 09/17/17 15:00 104 34 131/63 (85) 95 Room Air 09/17/17 14:00 102 34 119/64 (82) 92 Room Air 09/17/17 13:00 110 27 132/82 (99) 93 Room Air 09/17/17 12:44 93 Room Air 09/17/17 12:00 36.7 108 30 124/61 (82) 93 Room Air 09/17/17 11:00 113 27 121/64 (83) 96 Room Air Physical Exam Comments: General Appearance: WD/WN, no apparent distress Head: normocephalic, atraumatic Eyes: PERRL, EOMI ENT: normal ENT inspection, however dry mucous membranes are noted Neck: supple, no adenopathy Respiratory/Chest: chest non-tender, lungs clear, normal breath sounds, tachypnic Cardiovascular: no edema, no murmur, normal peripheral pulses, + tachycardia Abdomen/GI: normal bowel sounds, soft, + tenderness (to epigastric region, no rebound tenderness) Back: normal inspection, no CVA tenderness Neurologic/Psych: alert, oriented x 3 Skin: normal color Lymphatic: no adenopathy : Dark colored urine in vega Laboratory Results Last 24 Hours Test 09/17/17 12:08 09/17/17 12:55 09/17/17 17:20 09/18/17 00:33 Bedside Glucose 140 mg/dl Prothrombin Time 12.3 SECONDS Prothromb Time International Ratio 1.2 Activated Partial Thromboplast Time 34.1 SECONDS Partial Thromboplastin Ratio 1.3 Sodium Level 140 mmol/L Potassium Level 4.0 mmol/L Chloride Level 109 mmol/L Carbon Dioxide Level 18 mmol/L Anion Gap 12.0 mmol/L Blood Urea Nitrogen 107 mg/dl Creatinine 5.53 mg/dl Est Creatinine Clear Calc Drug Dose 11.7 ml/min Estimated GFR () 10.8 Estimated GFR (Non- 9.3 BUN/Creatinine Ratio 19.4 Random Glucose 126 mg/dl Osmolality 330 mOsm/kg Lactic Acid Level 1.6 mmol/L Calcium Level 8.0 mg/dl Phosphorus Level 3.6 mg/dl Magnesium Level 2.5 mg/dl Total Bilirubin 11.0 mg/dl Direct Bilirubin 8.7 mg/dl Aspartate Amino Transf (AST/SGOT) 76 U/L Alanine Aminotransferase (ALT/SGPT) 56 U/L Alkaline Phosphatase 397 U/L Troponin I 0.067 ng/ml 0.126 ng/ml Total Protein 6.0 gm/dl Albumin 1.6 gm/dl Lipase 202 U/L Prostate Specific Antigen 74.600 ng/ml Hepatitis B Surface Antigen NEG Hepatitis C Antibody NEG Test 09/18/17 05:26 09/18/17 05:38 09/18/17 09:20 09/18/17 09:43 White Blood Count 32.53 K/uL Red Blood Count 4.20 M/uL Hemoglobin 11.1 g/dL Hematocrit 30.0 % Mean Corpuscular Volume 71.4 fL Mean Corpuscular Hemoglobin 26.4 pg Mean Corpuscular Hemoglobin Concent 37.0 g/dl Platelet Count 46 K/uL Neutrophils (%) (Auto) 91.8 % Lymphocytes (%) (Auto) 2.1 % Monocytes (%) (Auto) 5.2 % Eosinophils (%) (Auto) 0.0 % Basophils (%) (Auto) 0.2 % Neutrophils # (Auto) 29.89 K/uL Lymphocytes # (Auto) 0.67 K/uL Monocytes # (Auto) 1.68 K/uL Eosinophils # (Auto) 0.00 K/uL Basophils # (Auto) 0.05 K/uL RDW Standard Deviation 36.9 fL RDW Coefficient of Variation 14.3 % Immature Granulocyte % (Auto) 0.7 % Immature Granulocyte # (Auto) 0.24 K/uL Toxic Granulation 1+ Toxic Vacuolation 1+ Dohle Bodies 1+ Platelet Estimate DECREASED Echinocytes 2+ Prothrombin Time 12.6 SECONDS Prothromb Time International Ratio 1.2 Activated Partial Thromboplast Time 31.9 SECONDS Partial Thromboplastin Ratio 1.2 Sodium Level 143 mmol/L Potassium Level 3.9 mmol/L Chloride Level 113 mmol/L Carbon Dioxide Level 16 mmol/L Anion Gap 14.0 mmol/L Blood Urea Nitrogen 119 mg/dl Creatinine 5.63 mg/dl Est Creatinine Clear Calc Drug Dose 11.5 ml/min Estimated GFR () 10.6 Estimated GFR (Non- 9.1 BUN/Creatinine Ratio 21.2 Random Glucose 113 mg/dl Calcium Level 7.8 mg/dl Phosphorus Level 3.8 mg/dl Magnesium Level 2.7 mg/dl Total Bilirubin 11.0 mg/dl Direct Bilirubin 8.9 mg/dl Aspartate Amino Transf (AST/SGOT) 81 U/L Alanine Aminotransferase (ALT/SGPT) 59 U/L Alkaline Phosphatase 412 U/L Total Protein 5.9 gm/dl Albumin 1.5 gm/dl Bedside Glucose 111 mg/dl Troponin I 0.137 ng/ml Fibrinogen 831 mg/dl Fibrin Degradation Products >40 mcg/ml Assessment and Plan UROSEPSIS with severe acute renal failure and metaolic acidosis in a 72 yo male with history of hypertension, BPH. Admitted to the ICU. Continue Zosyin, Continue IVF at 100ml/hr Will also give a bolus today Lactic acid resolved CBC remains elevated Metabolic acidosis with respiratoy compensation Anion gap is elevated Will continue with aggressive fluid resuscitation and Zosyn. Discussed case with ICU team. No urinary obstruction noted on imaging or stones Creatinine remains elvated with only minimal improvement. Nephrology on the case, may require dialysis Given his metabolic acidosis and severe renal failure, and tachycardia, will monitor patient in the ICU SONY GFR is the teens. In metabolic acidosis, may need dialysis if he does not improve. Elevated Liver function test May be a sequela from sepsis. will monitor HTN: HOLD meds for now Left hip pain Chronic from likely OA will monitor placed on Lidoderm patch will hold nsaids and tylenol due to elevated LFT and Creatinine BPH: will monitor. vega placed Patient is LEVEL 5 CODE STATUS DVT: HEP GI PROTONIX Clear liquid diet. D/W Nephrology, D/W Critical care team
[2017-09-18] MEDS ORDERED: SODIUM CHLORIDE 0.9% 500ML 500 ML IV SCH (10:45)
[2017-09-18] MEDS: METOPROLOL TARTRATE 25 MG TAB PO SCH (21:51)
[2017-09-18] MEDS ORDERED: FENTANYL CITRATE INJ 50 MCG/1 ML 2 ML VIAL IV ONE (22:45)
[2017-09-19] VITALS (30 sets, daily range): BP systolic 125–160; BP diastolic 69–77; PULSE 87–116; TEMP 36.6–37.4; O2SAT 86–99
[2017-09-19] MEDS: PIPERACILL/TAZOBAC IV 4.5 GM in DEXTROSE 5% 100ML IV SCH (03:28)
[2017-09-19] MEDS: SODIUM BICARBONATE 8.4% INJ 75 MEQ in SODIUM CHLORIDE 0.45% 1000ML 1,000 ML IV SCH ×2 (05:40→22:21)
--- NOTE | 2017-09-19 05:51 | Surgery Progress Note ---
Surgery Progress Note Date of Service Sep 19, 2017. Subjective No abd pain, tolerating diet Objective Vital Signs: Date Time Temp Pulse Resp B/P (MAP) Pulse Ox O2 Delivery O2 Flow Rate FiO2 09/19/17 04:13 90 Room Air 2.0 09/19/17 04:01 36.6 90 32 140/73 (95) 91 09/19/17 04:00 95 31 90 09/19/17 03:01 95 28 142/71 (94) 90 09/19/17 03:00 97 27 90 09/19/17 02:01 98 30 144/74 (97) 90 Nasal Cannula 3.0 09/19/17 02:00 99 30 90 09/19/17 01:01 91 31 137/69 (91) 88 09/19/17 01:00 100 20 93 09/19/17 00:07 90 Room Air 2.0 09/19/17 00:01 36.8 93 27 141/72 (95) 90 09/19/17 00:00 88 29 89 09/18/17 23:01 92 28 121/68 (85) 89 09/18/17 23:00 89 27 89 09/18/17 22:01 109 32 141/72 (95) 92 18 22:00 107 34 92 09/18/17 21:01 110 32 153/73 (99) 92 09/18/17 21:00 113 33 95 09/18/17 20:01 107 31 136/76 (96) 91 09/18/17 20:00 36.7 106 33 92 09/18/17 20:00 90 Room Air 2.0 09/18/17 19:01 117 26 144/77 (99) 96 18 19:00 119 24 96 18 17:30 111 31 90 Room Air 09/18/17 17:20 117 23 146/77 (100) 95 18 17:01 126 22 146/77 (100) 90 18 16:30 110 35 92 18 16:01 121 30 132/78 (96) 95 18 15:30 118 33 93 09/18/18 15:30 Nasal Cannula 2.0 09/18/17 15:30 36.8 111 22 119/64 (82) 93 Nasal Cannula 2.0 09/18/17 15:01 118 22 119/64 (82) 93 09/18/17 15:00 115 21 93 09/18/17 14:01 122 21 146/101 (116) 96 09/18/17 14:00 125 23 96 09/18/17 13:01 112 24 137/87 (104) 96 09/18/17 13:00 121 22 95 09/18/17 12:01 112 24 141/73 (95) 95 09/18/17 12:00 107 22 95 09/18/17 11:30 36.6 108 24 130/71 (90) 96 Nasal Cannula 2.0 09/18/17 11:30 Nasal Cannula 2.0 09/18/17 11:01 110 33 130/71 (90) 93 09/18/17 11:00 110 35 93 09/18/17 10:05 109 34 112/77 (89) 92 09/18/17 10:00 113 26 90 09/18/17 09:01 119 17 137/76 (96) 92 09/18/17 09:00 121 28 91 09/18/17 08:01 110 32 136/68 (90) 93 09/18/17 08:00 110 29 93 09/18/17 07:22 94 Room Air 09/18/17 07:22 36.8 113 22 124/68 (86) 93 Room Air 09/18/17 07:01 109 31 126/71 (89) 93 09/18/17 07:00 105 25 94 09/18/17 06:01 109 41 124/68 (86) 94 09/18/17 06:00 112 33 93 General Appearance: no apparent distress Respiratory/Chest: no respiratory distress Abdomen: non tender, soft Laboratory Results: Results Past 24 Hours Test 09/18/17 09:20 09/18/17 09:43 09/18/17 10:52 09/18/17 15:58 Range/Units Troponin I 0.137 0-0.045 ng/ml Heparin-PF4 Antibody Screen NEG NEG Fibrinogen 831 184-400 mg/dl Fibrin Degradation Products >40 <10 mcg/ml Bedside Glucose 117 206 70-99 mg/dl Test 09/19/17 05:25 Range/Units Microbiology Results 09/18/17 Blood Culture, Received Pending 09/18/17 Blood Culture, Received Pending Assessment & Plan 09/19/17- No evidence of necrotizing cholecystitis- scheduled for MRCP Does not require urgent surgery. Cont to follow. E Coli in urine Gm neg in blood. 09/18/17- does not appear to have necrotizing cholecystitis or need urgent surgery. Will be interesting to see if urine and blood are same organism. GI evaluation pending. check am labs 09/18/17- does not appear to have necrotizing cholecystitis or need urgent surgery. Will be interesting to see if urine and blood are same organism. GI evaluation pending. check am labs
[2017-09-19 06:39] LABS: ALBUMIN 1.5 gm/dl (3.4-5.0); ALKALINE PHOSPHATASE 407 U/L (45-117); ALT/SGPT 85 U/L (12-78); AST/SGOT 108 U/L (15-37); BLOOD UREA NITROGEN 115 mg/dl (7-18); CALCIUM 7.9 mg/dl (8.5-10.1); CARBON DIOXIDE 19 mmol/L (21-32); CREATININE 5.15 mg/dl (0.60-1.40); GLUCOSE 125 mg/dl (70-99); SODIUM 143 mmol/L (136-145); TOTAL PROTEIN 6.1 gm/dl (6.4-8.2)
[2017-09-19 07:58] LABS: BASO % 0.3 %; BASO ABS # 0.08 K/uL (0-0.2); EOS ABS # 0.01 K/uL (0-0.5); HEMATOCRIT 29.4 % (42-52); HEMOGLOBIN 10.9 g/dL (14.0-18.0); IG# 0.26 K/uL (0.00-0.02); LYMPH % 4.6 %; LYMPH ABS # 1.22 K/uL (1.2-3.4); MEAN CELL VOLUME 71.5 fL (80-100); MEAN CORPUSCULAR HEMOGLOBIN 26.5 pg (25-34); MEAN CORPUSCULAR HGB CONC 37.1 g/dl (32-36); MONO % 8.2 %; MONO ABS # 2.17 K/uL (0.11-0.59); NEUT % 85.9 %; NEUT ABS # 22.69 K/uL (1.4-6.5); NUCLEATED RED BLOOD CELL ABS 0.03 K/uL (0-0); PLATELET COUNT 35 K/uL (130-400); RED CELL DISTRIBUTION WIDTH CV 14.4 % (11.5-14.5); RED CELL DISTRIBUTION WIDTH SD 37.1 fL (36.4-46.3); WHITE BLOOD COUNT 26.43 K/uL (4.8-10.8)
[2017-09-19] MEDS: AMLODIPINE BESYLATE 5 MG TAB PO SCH (08:11)
[2017-09-19] MEDS: ASPIRIN 81 MG ECTAB PO SCH (08:11)
[2017-09-19] MEDS: PANTOprazole SOD 40 MG TAB PO SCH (08:11)
[2017-09-19] MEDS: METOPROLOL TARTRATE 25 MG TAB PO SCH ×2 (08:11→20:34)
[2017-09-19] MEDS: LIDODERM (LIDOCAINE) PATCH 5% TD SCH (08:11)
--- NOTE | 2017-09-19 09:42 | Gastroenterology Progress Note ---
Gastroenterology Progress Note Patient remains stable. Tachycardic but no fevers. Liver enzymes remain elevated. Mild elevation in transaminases today with mild increase in bilirubin and alk phos. Leukocytosis improving slowly. Agree with proceeding with MRCP. Although I suspect the urine is the source of sepsis and the gram negative bacteremia and the cholestatic liver enzyme patter is related to sepsis, would like to be sure there is not an occult biliary obstruction. No indication of biliary ductal dilation on prior imaging studies and visible stones.
--- NOTE | 2017-09-19 09:46 | Nephrology Progress Note ---
Nephrology Progress Note Date of Service Sep 19, 2017. Chief Complaint Acute renal insufficiency Subjective No acute events overnight. Brett reports overall improvement this morning. This includes improving left hip pain. He has not been weight bearing. He notes that there is less discomfort at rest. The Lidoderm has helped with tenderness. Brett continues to deny significant abdominal pain. He denies nausea. No fevers or chills. Review of Systems A complete review of systems was performed. Pertinent positives are noted above. All other systems are negative. Vital Signs Last 8 Hrs Date Time Temp Pulse Resp B/P (MAP) Pulse Ox O2 Delivery O2 Flow Rate FiO2 09/19/17 08:00 90 Nasal Cannula 2.0 09/19/17 08:00 36.8 106 24 141/74 (96) 90 Nasal Cannula 3.0 09/19/17 06:01 103 34 140/70 (93) 90 09/19/17 06:00 105 28 90 09/19/17 05:01 98 30 131/73 (92) 91 09/19/17 05:00 97 33 90 09/19/17 04:13 90 Room Air 2.0 09/19/17 04:01 36.6 90 32 140/73 (95) 91 09/19/17 04:00 95 31 90 09/19/17 03:01 95 28 142/71 (94) 90 09/19/17 03:00 97 27 90 09/19/17 02:01 98 30 144/74 (97) 90 Nasal Cannula 3.0 09/19/17 02:00 99 30 90 Last Recorded Weight Weight (Kilograms): 80.600 Physical Exam General Appearance: WD/WN, no apparent distress Head: normocephalic, atraumatic Eyes: normal inspection, + pertinent finding (icteric) ENT: normal ENT inspection, pharynx normal Neck: supple, no JVD Respiratory/Chest: lungs clear, no respiratory distress, no accessory muscle use Cardiovascular: regular rate, rhythm, no gallop, no murmur Abdomen/GI: non tender, + distended, + pertinent finding (hyperactive bowel sounds) Genitourinary - Male: + pertinent finding (Hamm draining tea colored urine) Extremities/Musculoskelatal: normal inspection, no pedal edema, + pertinent finding (left hip mildly tender posterior laterally) Neurologic/Psych: alert, normal mood/affect Social History Smokeless Tobacco Use: No Alcohol Use: none Drug Use: none 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) Laboratory Results Past 24 Hours 09/19/17 05:25 Red Blood Count 4.11, Mean Corpuscular Volume 71.5, Mean Corpuscular Hemoglobin 26.5, Mean Corpuscular Hemoglobin Concent 37.1, Neutrophils (%) (Auto) 85.9, Lymphocytes (%) (Auto) 4.6, Monocytes (%) (Auto) 8.2, Eosinophils (%) (Auto) 0.0 , Basophils (%) (Auto) 0.3, Neutrophils # (Auto) 22.69, Lymphocytes # (Auto) 1.22, Monocytes # (Auto) 2.17, Eosinophils # (Auto) 0.01, Basophils # (Auto) 0.08 09/19/17 05:25 Test 09/18/17 09:43 09/18/17 10:52 09/18/17 15:58 09/19/17 05:25 Fibrinogen 831 mg/dl (184-400) Fibrin Degradation Products >40 mcg/ml (<10) Bedside Glucose 117 mg/dl (70-99) 206 mg/dl (70-99) White Blood Count 26.43 K/uL (4.8-10.8) Red Blood Count 4.11 M/uL (4.7-6.1) Hemoglobin 10.9 g/dL (14.0-18.0) Hematocrit 29.4 % (42-52) Mean Corpuscular Volume 71.5 fL (80-100) Mean Corpuscular Hemoglobin 26.5 pg (25-34) Mean Corpuscular Hemoglobin Concent 37.1 g/dl (32-36) Platelet Count 35 K/uL (130-400) Neutrophils (%) (Auto) 85.9 % Lymphocytes (%) (Auto) 4.6 % Monocytes (%) (Auto) 8.2 % Eosinophils (%) (Auto) 0.0 % Basophils (%) (Auto) 0.3 % Neutrophils # (Auto) 22.69 K/uL (1.4-6.5) Lymphocytes # (Auto) 1.22 K/uL (1.2-3.4) Monocytes # (Auto) 2.17 K/uL (0.11-0.59) Eosinophils # (Auto) 0.01 K/uL (0-0.5) Basophils # (Auto) 0.08 K/uL (0-0.2) RDW Standard Deviation 37.1 fL (36.4-46.3) RDW Coefficient of Variation 14.4 % (11.5-14.5) Immature Granulocyte % (Auto) 1.0 % Immature Granulocyte # (Auto) 0.26 K/uL (0.00-0.02) Nucleated RBC Absolute Count (auto) 0.03 K/uL (0-0) Nucleated Red Blood Cells % 0.1 % Toxic Granulation 1+ Dohle Bodies 1+ Platelet Estimate DECREASED Large Platelets 1+ Rouleau 1+ Anion Gap 12.0 mmol/L (3-11) Est Creatinine Clear Calc Drug Dose 12.6 ml/min Estimated GFR () 11.8 Estimated GFR (Non- 10.2 BUN/Creatinine Ratio 22.3 (10-20) Calcium Level 7.9 mg/dl (8.5-10.1) Phosphorus Level 4.0 mg/dl (2.5-4.9) Magnesium Level 2.8 mg/dl (1.8-2.4) Total Bilirubin 12.4 mg/dl (0.2-1) Direct Bilirubin mg/dl (0-0.2) Aspartate Amino Transf (AST/SGOT) 108 U/L (15-37) Alanine Aminotransferase (ALT/SGPT) 85 U/L (12-78) Alkaline Phosphatase 407 U/L (45-117) Troponin I 0.061 ng/ml (0-0.045) Total Protein 6.1 gm/dl (6.4-8.2) Albumin 1.5 gm/dl (3.4-5.0) Test 09/19/17 05:31 Bedside Glucose 128 mg/dl (70-99) Allergies Coded Allergies: No Known Allergies (Unverified , 09/17/17) Medications Current Inpatient Medications Medications (Trade) Dose Ordered Sig/Candelaria Route Start Time Stop Time Status Last Admin Dose Admin Miscellaneous Information (Consult) 1 ea UD PRN N/A 09/17/17 08:21 10/17/17 08:20 Heparin Sodium (Porcine) (Heparin Sq 5000 Unit/0.5ml) 5,000 unit Q12H SQ 09/17/17 17:00 10/17/17 16:59 Future Hold 09/18/17 04:41 5,000 UNIT Aspirin (Ecotrin Tab) 81 mg QAM PO 09/17/17 13:00 10/17/17 12:59 09/19/17 08:11 81 MG Al Hydrox/Mg Hydrox/Simethicone (Maalox Max Susp) 15 ml Q4H PRN PO 09/17/17 08:30 10/17/17 08:29 Pantoprazole Sodium (Protonix Tab) 40 mg DAILY PO 09/17/17 09:00 09/20/17 09:01 09/19/17 08:11 40 MG Lidocaine (Lidoderm Patch 5%) 1 patch QAM TD 09/18/17 09:00 10/18/17 08:59 09/19/17 08:11 1 PATCH Miscellaneous (Remove Lidoderm Patch) 1 ea DAILY@21 N/A 09/17/17 21:00 10/17/17 20:59 09/19/17 04:51 1 EA Piperacillin Sod/ Tazobactam Sod 4.5 gm/Dextrose 120 ml @ 30 mls/hr Q12H IV 09/17/17 15:00 09/27/17 14:59 09/19/17 03:28 30 MLS/HR Sodium Bicarbonate 75 meq/Sodium Chloride 1,075 ml @ 100 mls/hr [id number] IV 09/18/17 09:45 10/18/17 09:44 09/19/17 05:40 100 MLS/HR Metoprolol Tartrate (Lopressor Tab) 25 mg BID PO 09/18/17 21:00 10/18/17 20:59 09/19/17 08:11 25 MG Amlodipine Besylate (Norvasc Tab) 10 mg QAM PO 09/19/17 09:00 10/19/17 08:59 09/19/17 08:11 10 MG Impression (1) Acute renal failure (2) Hyperbilirubinemia (3) UTI (urinary tract infection) (4) Leukocytosis (5) Thrombocytopenia (6) Anemia (7) Gram-negative bacteremia Mr. Brett Emmanuel is a 72-year-old male inmate who was transferred from the [facility] at [facility] for evaluation of progressive symptoms of weakness, anorexia, nausea, abdominal discomfort and left hip pain. Clinical presentation consistent with severe sepsis. Blood cultures growing gram negative rods with dhaliwal sensitive E coli in urine. Patient is receiving treatment with Zosyn. Medical history is notable for a BPH, urinary obstruction with chronic indwelling Hamm as well as an elevated PSA. Initial evaluation is notable for acute renal insufficiency, hyperbilirubinemia (direct), hypoalbuminemia, thrombocytopenia, anemia and a marked leukocytosis. Peripheral smear reviewed. No evidence of hematologic malignancy or hemolytic anemia. Platelet count continues to fall. INR and PTT are slightly elevated. Fibrinogen is elevated which is not consistent with DIC and less consistent with chronic liver disease. HIT antibody negative. Noncontrast CT scan of the abdomen and pelvis was reviewed on admission. The kidneys are normal in appearance. There is no evidence of obstruction. Urine is turbid with gross hematuria. UA documented hematuria, proteinuria, pyuria. Culture NGTD. Liver is not cirrhotic appearing. Gallbladder is enlarged. RUQ US documented enlarged GB without obvious stone or obstruction. Blood pressure is acceptable. Volume status appears euvolemic. While NPO, patient remains on IVF with bicarbonate. I am concerned regarding the history of hip pain and elevated PSA. Pending MRCP , I have requested a hip X-ray. SONY is clinically consistent with ATN. Other etiologies such as GN or AIN would be considered significantly less likely. Creatinine slightly improved. Metabolic profile is otherwise appropriate. There is no current indication for renal replacement therapy. Recommendations SONY/ATN: -- Monitor metabolic profile daily -- Continue 1/2NS+ 75 mEq HCO3 @ 100 ml/h for metabolic acidosis -- Document I/O's -- Medications are appropriately dosed for renal function Severe sepsis with gram negative bacteremia and pansensitive E coli UTI: -- Remains on Zosyn -- Clinically improving Abnormal LFTs: -- Appreciate GI and surgery consult -- MRCP pending Thrombocytopenia: -- Possibly secondary to sepsis -- Fibrinogen not consistent with DIC -- Peripheral smear reviewed -- Consider HIV screen if not previously completed Elevated PSA/urinary obstruction: -- Hamm to gravity -- Will require additional outpatient follow up Left hip pain: -- X-ray
[2017-09-19] MEDS ORDERED: SODIUM CHLORIDE 0.9% 1000ML 1,000 ML IV SCH (10:15)
--- NOTE | 2017-09-19 10:21 | Progress Note ---
Subjective Date of Service: Sep 19, 2017. Subjective Pt evaluation today including: conversation w/ patient, physical exam 72 yo male reports feeling better today. Patient denies any symptoms of Shortness of breath, nausea, vomiting. Patient still has some mild generalized malaise but it has significantly improved. Problem List Medical Problems: (1) Acute renal failure Status: Acute (2) Hyperbilirubinemia Status: Acute (3) Leukocytosis Status: Acute (4) UTI (urinary tract infection) Status: Acute Review of Systems Constitutional: No fever, No chills Eyes: No worsening of vision ENT: No hearing loss Respiratory: No cough, No sputum Cardiac: No chest pain Abdomen: No pain Musculoskeletal: + joint pain Neurologic: No memory loss Psychiatric: No depression symptoms Heme: No abnormal bleeding/bruising Endo: No fatigue Skin: No rash All Other Systems: Reviewed and Negative Medications Current Inpatient Medications Medications (Trade) Dose Ordered Sig/Candelaria Route Start Time Stop Time Status Last Admin Dose Admin Aspirin (Ecotrin Tab) 81 mg QAM PO 09/17/17 13:00 10/17/17 12:59 09/19/17 08:11 81 MG Al Hydrox/Mg Hydrox/Simethicone (Maalox Max Susp) 15 ml Q4H PRN PO 09/17/17 08:30 10/17/17 08:29 Pantoprazole Sodium (Protonix Tab) 40 mg DAILY PO 09/17/17 09:00 09/20/17 09:01 09/19/17 08:11 40 MG Lidocaine (Lidoderm Patch 5%) 1 patch QAM TD 09/18/17 09:00 10/18/17 08:59 09/19/17 08:11 1 PATCH Miscellaneous (Remove Lidoderm Patch) 1 ea DAILY@21 N/A 09/17/17 21:00 10/17/17 20:59 09/19/17 04:51 1 EA Sodium Bicarbonate 75 meq/Sodium Chloride 1,075 ml @ 100 mls/hr [id number] IV 09/18/17 09:45 10/18/17 09:44 09/19/17 05:40 100 MLS/HR Metoprolol Tartrate (Lopressor Tab) 25 mg BID PO 09/18/17 21:00 10/18/17 20:59 09/19/17 08:11 25 MG Amlodipine Besylate (Norvasc Tab) 10 mg QAM PO 09/19/17 09:00 10/19/17 08:59 09/19/17 08:11 10 MG Ampicillin Sodium 2000 mg/Sodium Chloride 100 ml @ 200 mls/hr Q12H IV 09/19/17 10:00 09/30/17 22:29 Objective Vital Signs Date Time Temp Pulse Resp B/P (MAP) Pulse Ox O2 Delivery O2 Flow Rate FiO2 09/19/17 08:00 90 Nasal Cannula 2.0 09/19/17 08:00 36.8 106 24 141/74 (96) 90 Nasal Cannula 3.0 09/19/17 06:01 103 34 140/70 (93) 90 09/19/17 06:00 105 28 90 09/19/17 05:01 98 30 131/73 (92) 91 09/19/17 05:00 97 33 90 09/19/17 04:13 90 Room Air 2.0 09/19/17 04:01 36.6 90 32 140/73 (95) 91 09/19/17 04:00 95 31 90 09/19/17 03:01 95 28 142/71 (94) 90 09/19/17 03:00 97 27 90 09/19/17 02:01 98 30 144/74 (97) 90 Nasal Cannula 3.0 09/19/17 02:00 99 30 90 09/19/17 01:01 91 31 137/69 (91) 88 09/19/17 01:00 100 20 93 09/19/17 00:07 90 Room Air 2.0 09/19/17 00:01 36.8 93 27 141/72 (95) 90 09/19/17 00:00 88 29 89 09/18/17 23:01 92 28 121/68 (85) 89 09/18/17 23:00 89 27 89 09/18/17 22:01 109 32 141/72 (95) 92 09/18/17 22:00 107 34 92 09/18/17 21:01 110 32 153/73 (99) 92 09/18/17 21:00 113 33 95 09/18/17 20:01 107 31 136/76 (96) 91 09/18/17 20:00 36.7 106 33 92 09/18/17 20:00 90 Room Air 2.0 09/18/17 19:01 117 26 144/77 (99) 96 09/18/17 19:00 119 24 96 09/18/17 17:30 111 31 90 Room Air 09/18/17 17:20 117 23 146/77 (100) 95 09/18/17 17:01 126 22 146/77 (100) 90 09/18/17 16:30 110 35 92 09/18/17 16:01 121 30 132/78 (96) 95 09/18/17 15:30 118 33 93 09/18/17 15:30 Nasal Cannula 2.0 09/18/17 15:30 36.8 111 22 119/64 (82) 93 Nasal Cannula 2.0 09/18/17 15:01 118 22 119/64 (82) 93 09/18/17 15:00 115 21 93 09/18/17 14:01 122 21 146/101 (116) 96 09/18/17 14:00 125 23 96 09/18/17 13:01 112 24 137/87 (104) 96 09/18/17 13:00 121 22 95 09/18/17 12:01 112 24 141/73 (95) 95 09/18/17 12:00 107 22 95 09/18/17 11:30 36.6 108 24 130/71 (90) 96 Nasal Cannula 2.0 09/18/17 11:30 Nasal Cannula 2.0 09/18/17 11:01 110 33 130/71 (90) 93 09/18/17 11:00 110 35 93 Physical Exam Comments: General Appearance: WD/WN, no apparent distress Head: normocephalic, atraumatic Eyes: PERRL, EOMI ENT: normal ENT inspection, however dry mucous membranes are noted Neck: supple, no adenopathy Respiratory/Chest: chest non-tender, lungs clear, normal breath sounds, tachypnic Cardiovascular: no edema, no murmur, normal peripheral pulses, + tachycardia Abdomen/GI: normal bowel sounds, soft, + tenderness (to epigastric region, no rebound tenderness) Back: normal inspection, no CVA tenderness Neurologic/Psych: alert, oriented x 3 Skin: normal color Lymphatic: no adenopathy : Dark colored urine in vega Laboratory Results Last 24 Hours Test 09/18/17 10:52 09/18/17 15:58 09/19/17 05:25 09/19/17 05:31 Bedside Glucose 117 mg/dl 206 mg/dl 128 mg/dl White Blood Count 26.43 K/uL Red Blood Count 4.11 M/uL Hemoglobin 10.9 g/dL Hematocrit 29.4 % Mean Corpuscular Volume 71.5 fL Mean Corpuscular Hemoglobin 26.5 pg Mean Corpuscular Hemoglobin Concent 37.1 g/dl Platelet Count 35 K/uL Neutrophils (%) (Auto) 85.9 % Lymphocytes (%) (Auto) 4.6 % Monocytes (%) (Auto) 8.2 % Eosinophils (%) (Auto) 0.0 % Basophils (%) (Auto) 0.3 % Neutrophils # (Auto) 22.69 K/uL Lymphocytes # (Auto) 1.22 K/uL Monocytes # (Auto) 2.17 K/uL Eosinophils # (Auto) 0.01 K/uL Basophils # (Auto) 0.08 K/uL RDW Standard Deviation 37.1 fL RDW Coefficient of Variation 14.4 % Immature Granulocyte % (Auto) 1.0 % Immature Granulocyte # (Auto) 0.26 K/uL Nucleated RBC Absolute Count (auto) 0.03 K/uL Nucleated Red Blood Cells % 0.1 % Toxic Granulation 1+ Dohle Bodies 1+ Platelet Estimate DECREASED Large Platelets 1+ Rouleau 1+ Sodium Level 143 mmol/L Potassium Level 4.0 mmol/L Chloride Level 112 mmol/L Carbon Dioxide Level 19 mmol/L Anion Gap 12.0 mmol/L Blood Urea Nitrogen 115 mg/dl Creatinine 5.15 mg/dl Est Creatinine Clear Calc Drug Dose 12.6 ml/min Estimated GFR () 11.8 Estimated GFR (Non- 10.2 BUN/Creatinine Ratio 22.3 Random Glucose 125 mg/dl Calcium Level 7.9 mg/dl Phosphorus Level 4.0 mg/dl Magnesium Level 2.8 mg/dl Total Bilirubin 12.4 mg/dl Direct Bilirubin mg/dl Aspartate Amino Transf (AST/SGOT) 108 U/L Alanine Aminotransferase (ALT/SGPT) 85 U/L Alkaline Phosphatase 407 U/L Troponin I 0.061 ng/ml Total Protein 6.1 gm/dl Albumin 1.5 gm/dl Test 09/19/17 10:03 Assessment and Plan UROSEPSIS with severe acute renal failure and metaolic acidosis in a 72 yo male with history of hypertension, BPH. Admitted to the ICU. On zosyn for 2 days On thrid day, patient is switched to ciprofloxacin. Continue IVF at 75ml/hr However will also give a bolus of 500 mls/hr will closely monitor his 02 sat however Urine output has improved today, likely related to decrease vasodilatation and improved organ perfusion. Lactic acid resolved CBC remains elevated Metabolic acidosis with respiratory compensation Anion gap is closed Will continue with aggressive fluid resuscitation and Zosyn. Discussed case with ICU team. No urinary obstruction noted on imaging or stones Creatinine remains elevated with only minimal improvement. Nephrology on the case, may require dialysis Given his metabolic acidosis and severe renal failure, and tachycardia, will monitor patient in the ICU SONY Likely acute tubular necrosis GFR is the teens. Had metabolic acidosis, anion gap is now closed. Seems patient will likely not require dialysis, at least for now. Elevated Liver function test May be a sequela from sepsis. will obtain an MRCP. will monitor. appreciate surgery recommendations HTN: Resumed metoprolol and amlodipine Left hip pain Chronic from likely OA will monitor placed on Lidoderm patch will hold nsaids and tylenol due to elevated LFT and Creatinine BPH: will monitor. vega placed Patient is LEVEL 5 CODE STATUS DVT: HEP GI PROTONIX Clear liquid diet. D/W Nephrology, D/W Critical care team Will transfer to General Medical Floor Continued [facility] stay due to: abnormal vital signs, voiding difficulties Discharge planning: uncertain
--- NOTE | 2017-09-19 10:27 | Critical Care Progress Note ---
Critical Care Progress Note Date of Service Sep 19, 2017. ICU Day ICU Day Number: [address] Morris Subjective No overnight events. Patient feels approximately the same, denies chest pain shortness of breath. Objective General Appearance: WD/WN, no apparent distress Head: normocephalic, atraumatic Eyes: PERRLA, EOMI Neck: Supple Respiratory: breath sounds normal, clear to auscultation, no respiratory distress Cardiovasular: normal S1S2, no M/G/R, no murmur, no gallop, no rub, no JVD, irregular rate (tachycardia) Abdomen: non tender, normal bowel sounds, no rebound, no masses, no guarding, no organomegaly Genitourinary - Male: other (vega present) Assessment & Plan Reason Critically Ill: Severe sepsis: Pansensitive Escherichia coli bacteremia, high gap metabolic acidosis secondary to uremia PLAN: Neuro: * Fentanyl when necessary for pain control Resp: Respiratory compensation of high gap metabolic acidosis * Slight improvement CV: Tachycardia Slight improvement * Added metoprolol home medication yesterday Fluids/Renal: Acute kidney injury * Creatinine slightly improved * Produced roughly 1 cc per kilo urine yesterday BPH High gap metabolic acidosis likely secondary to uremia ID: Severe sepsis Pansensitive Escherichia coli * Likely urinary source * Had Vega catheter placed 14 days ago secondary to urinary retention likely secondary to BPH * Catheter replaced in emergency department 09/17/17 05:41 * De-escalate antibiotics to ampicillin * Creatinine clearance greater than 10 less than 15 will dose every 12 hours interval * 14 day treatment course * day 10/27 GI/Nutrition: History of Hepatitis A Hyperbilirubinemia * GI consult pending * MRCP pending * Reviewed GI notes Thickened gallbladder * Reviewed general surgery recommendations * Nonoperative management at this time Heme: Anemia Thrombocytopenia * Significant drop in platelet count * Discontinuing heparin prophylaxis at this time * Sending hit panel, reticulocyte count * Suspect bone marrow suppression secondary to bacteremia and sepsis * Reviewed peripheral smear findings, no evidence of DIC * SCD's Endocrine: Accu-Cheks per protocol Patient consented for hemodialysis catheter in case he moves towards requiring dialysis. CODE STATUS: DO NOT RESUSCITATE I discussed the patient with the hospitalist service. Patient is stable for downgrade out of the ICU. Consults & Procedures Consultants: General surgery: Gastroenterology Nephrology Critical care medicine Data Medications: Current Inpatient Medications Medications (Trade) Dose Ordered Sig/Candelaria Route Start Time Stop Time Status Last Admin Dose Admin Miscellaneous Information (Consult) 1 ea UD PRN N/A 09/17/17 08:21 10/17/17 08:20 Heparin Sodium (Porcine) (Heparin Sq 5000 Unit/0.5ml) 5,000 unit Q12H SQ 09/17/17 17:00 10/17/17 16:59 Future Hold 09/18/17 04:41 5,000 UNIT Aspirin (Ecotrin Tab) 81 mg QAM PO 09/17/17 13:00 10/17/17 12:59 09/19/17 08:11 81 MG Al Hydrox/Mg Hydrox/Simethicone (Maalox Max Susp) 15 ml Q4H PRN PO 09/17/17 08:30 10/17/17 08:29 Pantoprazole Sodium (Protonix Tab) 40 mg DAILY PO 09/17/17 09:00 09/20/17 09:01 09/19/17 08:11 40 MG Lidocaine (Lidoderm Patch 5%) 1 patch QAM TD 09/18/17 09:00 10/18/17 08:59 09/19/17 08:11 1 PATCH Miscellaneous (Remove Lidoderm Patch) 1 ea DAILY@21 N/A 09/17/17 21:00 10/17/17 20:59 09/19/17 04:51 1 EA Piperacillin Sod/ Tazobactam Sod 4.5 gm/Dextrose 120 ml @ 30 mls/hr Q12H IV 09/17/17 15:00 09/27/17 14:59 09/19/17 03:28 30 MLS/HR Sodium Bicarbonate 75 meq/Sodium Chloride 1,075 ml @ 100 mls/hr [id number] IV 09/18/17 09:45 10/18/17 09:44 09/19/17 05:40 100 MLS/HR Metoprolol Tartrate (Lopressor Tab) 25 mg BID PO 09/18/17 21:00 10/18/17 20:59 09/19/17 08:11 25 MG Amlodipine Besylate (Norvasc Tab) 10 mg QAM PO 09/19/17 09:00 10/19/17 08:59 09/19/17 08:11 10 MG Vital Signs: Date Time Temp Pulse Resp B/P (MAP) Pulse Ox O2 Delivery O2 Flow Rate FiO2 09/19/17 08:00 90 Nasal Cannula 2.0 09/19/17 08:00 36.8 106 24 141/74 (96) 90 Nasal Cannula 3.0 09/19/17 06:01 103 34 140/70 (93) 90 09/19/17 06:00 105 28 90 09/19/17 05:01 98 30 131/73 (92) 91 09/19/17 05:00 97 33 90 09/19/17 04:13 90 Room Air 2.0 09/19/17 04:01 36.6 90 32 140/73 (95) 91 09/19/17 04:00 95 31 90 09/19/17 03:01 95 28 142/71 (94) 90 09/19/17 03:00 97 27 90 09/19/17 02:01 98 30 144/74 (97) 90 Nasal Cannula 3.0 09/19/17 02:00 99 30 90 09/19/17 01:01 91 31 137/69 (91) 88 09/19/17 01:00 100 20 93 09/19/17 00:07 90 Room Air 2.0 09/19/17 00:01 36.8 93 27 141/72 (95) 90 09/19/17 00:00 88 29 89 09/18/17 23:01 92 28 121/68 (85) 89 09/18/17 23:00 89 27 89 09/18/17 22:01 109 32 141/72 (95) 92 09/18/17 22:00 107 34 92 09/18/17 21:01 110 32 153/73 (99) 92 09/18/17 21:00 113 33 95 18 20:01 107 31 136/76 (96) 91 09/18/17 20:00 36.7 106 33 92 09/18/17 20:00 90 Room Air 2.0 09/18/17 19:01 117 26 144/77 (99) 96 09/18/17 19:00 119 24 96 09/18/17 17:30 111 31 90 Room Air 09/18/17 17:20 117 23 146/77 (100) 95 09/18/17 17:01 126 22 146/77 (100) 90 09/18/17 16:30 110 35 92 09/18/17 16:01 121 30 132/78 (96) 95 09/18/17 15:30 118 33 93 09/18/17 15:30 Nasal Cannula 2.0 09/18/17 15:30 36.8 111 22 119/64 (82) 93 Nasal Cannula 2.0 09/18/17 15:01 118 22 119/64 (82) 93 09/18/17 15:00 115 21 93 09/18/17 14:01 122 21 146/101 (116) 96 09/18/17 14:00 125 23 96 09/18/17 13:01 112 24 137/87 (104) 96 09/18/17 13:00 121 22 95 09/18/17 12:01 112 24 141/73 (95) 95 09/18/17 12:00 107 22 95 09/18/17 11:30 36.6 108 24 130/71 (90) 96 Nasal Cannula 2.0 09/18/17 11:30 Nasal Cannula 2.0 09/18/17 11:01 110 33 130/71 (90) 93 09/18/17 11:00 110 35 93 09/18/17 10:05 109 34 112/77 (89) 92 09/18/17 10:00 113 26 90 Laboratory Results: Last 24 Hours Test 09/18/17 10:52 09/18/17 15:58 09/19/17 05:25 09/19/17 05:31 Bedside Glucose 117 mg/dl 206 mg/dl 128 mg/dl White Blood Count 26.43 K/uL Red Blood Count 4.11 M/uL Hemoglobin 10.9 g/dL Hematocrit 29.4 % Mean Corpuscular Volume 71.5 fL Mean Corpuscular Hemoglobin 26.5 pg Mean Corpuscular Hemoglobin Concent 37.1 g/dl Platelet Count 35 K/uL Neutrophils (%) (Auto) 85.9 % Lymphocytes (%) (Auto) 4.6 % Monocytes (%) (Auto) 8.2 % Eosinophils (%) (Auto) 0.0 % Basophils (%) (Auto) 0.3 % Neutrophils # (Auto) 22.69 K/uL Lymphocytes # (Auto) 1.22 K/uL Monocytes # (Auto) 2.17 K/uL Eosinophils # (Auto) 0.01 K/uL Basophils # (Auto) 0.08 K/uL RDW Standard Deviation 37.1 fL RDW Coefficient of Variation 14.4 % Immature Granulocyte % (Auto) 1.0 % Immature Granulocyte # (Auto) 0.26 K/uL Nucleated RBC Absolute Count (auto) 0.03 K/uL Nucleated Red Blood Cells % 0.1 % Toxic Granulation 1+ Dohle Bodies 1+ Platelet Estimate DECREASED Large Platelets 1+ Rouleau 1+ Sodium Level 143 mmol/L Potassium Level 4.0 mmol/L Chloride Level 112 mmol/L Carbon Dioxide Level 19 mmol/L Anion Gap 12.0 mmol/L Blood Urea Nitrogen 115 mg/dl Creatinine 5.15 mg/dl Est Creatinine Clear Calc Drug Dose 12.6 ml/min Estimated GFR () 11.8 Estimated GFR (Non- 10.2 BUN/Creatinine Ratio 22.3 Random Glucose 125 mg/dl Calcium Level 7.9 mg/dl Phosphorus Level 4.0 mg/dl Magnesium Level 2.8 mg/dl Total Bilirubin 12.4 mg/dl Direct Bilirubin mg/dl Aspartate Amino Transf (AST/SGOT) 108 U/L Alanine Aminotransferase (ALT/SGPT) 85 U/L Alkaline Phosphatase 407 U/L Troponin I 0.061 ng/ml Total Protein 6.1 gm/dl Albumin 1.5 gm/dl
[2017-09-19 10:53] LABS: RETIC COUNT % 0.7 % (0.5-2.0)
--- NOTE | 2017-09-19 11:42 | DIAGNOSTIC IMAGING REPORT ---
L PELVIS/UNILATERAL HIP 2-3VIEWS CLINICAL HISTORY: 72 years-old Male presenting with left hip pain. TECHNIQUE: Single frontal view the pelvis and frontal and frog-leg lateral views the left hip were obtained. COMPARISON: None. FINDINGS: Sacroiliac joints and pubic symphysis congruent. Bilateral hip joints congruent. Bony pelvis intact. Arcuate lines intact. Transitional lumbosacral anatomy suggested on the left at L5. Severe degenerative changes of the left hip joint with joint space loss, osteophytosis, subchondral sclerosis and cystic change both in the left femoral head and acetabulum. No left femoral neck fracture. IMPRESSION: 1. No acute osseous injury of the pelvis. 2. 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 3. No acute osseous injury of the left femoral neck. Electronically signed by: Suman Cope M.D. 09/19/2017 11:40 AM Dictated Date/Time: 09/19/2017 11:38 AM
--- NOTE | 2017-09-19 11:48 | DIAGNOSTIC IMAGING REPORT ---
MRCP CLINICAL HISTORY: 72 years-old Male presenting with hyperbilirubinemia, acute renal failure, leukocytosis, sepsis . TECHNIQUE: Multisequence, multiplanar MR imaging of the abdomen was performed without the use of intravenous contrast. 3-D volumetric and/or maximum intensity projection (MIP) images were subsequently reconstructed for review. IV contrast: None. COMPARISON: CT from 09/17/2017. FINDINGS: Image quality is degraded by motion artifact negatively affecting diagnostic sensitivity the exam. Localizer images: Unremarkable. Lung bases: Normal heart size. Trace bilateral pleural effusions. No pericardial effusion. Liver: Normal morphology. Biliary: Conventional intrahepatic biliary ductal bifurcation. No intrahepatic or extra hepatic ductal dilatation. Normal gallbladder. Pancreas: Normal noncontrast appearance. No pancreatic ductal dilatation. Nonspecific fluid noted along the dorsum of the pancreatic tail. Spleen: Normal noncontrast appearance. Adrenal glands: Normal noncontrast appearance. Kidneys and ureters: Nonspecific perinephric fat stranding. No hydronephrosis. No hydronephrosis. Bowel: Normal. No bowel obstruction. Peritoneal cavity: No free fluid or intraperitoneal gas. Trace periduodenal and retroperitoneal fluid. Lymph nodes: No gross lymphadenopathy allowing for noncontrast technique. Vasculature: Normal noncontrast appearance. Abdominal wall: Normal. Musculoskeletal: Normal. IMPRESSION: 1. No intrahepatic or extra hepatic biliary ductal dilatation. 2. Grossly normal noncontrast appearance of the liver within limitations of motion artifact degradation. 3. Nonspecific retroperitoneal, peripancreatic, and periduodenal fluid. This could be due to a reported are acute renal failure as there is also nonspecific perinephric fluid. Other considerations include pancreatitis. Correlate with lipase. Electronically signed by: Suman Cope M.D. 09/19/2017 11:46 AM Dictated Date/Time: 09/19/2017 11:40 AM
[2017-09-19] MEDS: AMPICILLIN IV 2,000 MG in SODIUM CHLOR 0.9% AD-VAN 100ML 100 ML IV SCH ×2 (12:40→23:12)
--- NOTE | 2017-09-19 16:38 | DIAGNOSTIC IMAGING REPORT ---
CHEST ONE VIEW PORTABLE CLINICAL HISTORY: 72 years-old Male presenting with SOB. TECHNIQUE: Portable upright AP view of the chest was obtained. COMPARISON: 09/17/2017. FINDINGS: Cardiomediastinal silhouette normal. Mildly low lung volumes. Interval development of extensive bilateral patchy pulmonary opacities. No large pleural effusion or pneumothorax. Osseous structures normal. Upper abdomen normal. IMPRESSION: 1. Interval development of extensive bilateral patchy pulmonary opacities most concerning for multifocal pneumonia. Differential considerations include diffuse alveolar damage or less likely pulmonary edema. Electronically signed by: Suman Cope M.D. 09/19/2017 4:37 PM Dictated Date/Time: 09/19/2017 4:36 PM
[2017-09-19 21:19] LABS: HEPATITIS A IGM TC 51813E NON-REACTIVE (NON-REACTIVE); HEPATITIS B CORE IGM TC51854R NON-REACTIVE (NON-REACTIVE)
[2017-09-20] VITALS (12 sets, daily range): BP systolic 159–170; BP diastolic 70–79; PULSE 88–119; TEMP 36.3–36.8; O2SAT 92–97
[2017-09-20] MEDS ORDERED: NURSING VERBAL MED ORDER ONE (06:00)
[2017-09-20 06:34] LABS: HEMATOCRIT 28.4 % (42-52); HEMOGLOBIN 10.5 g/dL (14.0-18.0); MEAN CELL VOLUME 72.1 fL (80-100); MEAN CORPUSCULAR HEMOGLOBIN 26.6 pg (25-34); PLATELET COUNT 37 K/uL (130-400); RED CELL DISTRIBUTION WIDTH CV 14.4 % (11.5-14.5); RED CELL DISTRIBUTION WIDTH SD 37.7 fL (36.4-46.3)
[2017-09-20 06:35] LABS: BASO % 0.2 %; BASO ABS # 0.06 K/uL (0-0.2); EOS % 0.1 %; EOS ABS # 0.02 K/uL (0-0.5); IG# 0.43 K/uL (0.00-0.02); LYMPH % 6.1 %; LYMPH ABS # 1.79 K/uL (1.2-3.4); MONO % 6.2 %; MONO ABS # 1.82 K/uL (0.11-0.59); NEUT % 85.9 %; NEUT ABS # 25.28 K/uL (1.4-6.5)
[2017-09-20 07:21] LABS: ALBUMIN 1.5 gm/dl (3.4-5.0); CALCIUM 8.1 mg/dl (8.5-10.1); CREATININE 4.74 mg/dl (0.60-1.40); TOTAL PROTEIN 6.5 gm/dl (6.4-8.2)
[2017-09-20] MEDS: AMLODIPINE BESYLATE 5 MG TAB PO SCH (09:45)
[2017-09-20] MEDS: METOPROLOL TARTRATE 25 MG TAB PO SCH ×2 (09:46→20:15)
[2017-09-20] MEDS: ASPIRIN 81 MG ECTAB PO SCH (09:46)
[2017-09-20] MEDS: LIDODERM (LIDOCAINE) PATCH 5% TD SCH (09:46)
[2017-09-20] MEDS: PANTOprazole SOD 40 MG TAB PO SCH (09:46)
[2017-09-20] MEDS: AMPICILLIN IV 2,000 MG in SODIUM CHLOR 0.9% AD-VAN 100ML 100 ML IV SCH ×2 (09:58→22:21)
--- NOTE | 2017-09-20 10:14 | Nephrology Progress Note ---
Nephrology Progress Note Date of Service Sep 20, 2017. Chief Complaint SONY Subjective Mr. Emmanuel was seen & examined in his hospital room this morning. He is moderately icteric and vega catheter is draining dark urine. Mr. Emmanuel is subjectively improved. He voices no medical concerns at this time. Review of Systems Constitutional: No fever Cardiovascular: No chest pain Respiratory: No dyspnea at rest Abdomen: No pain, No nausea, No vomiting Extremities: No leg edema A complete review of systems was performed. Pertinent positives are noted above. All other systems are negative. Vital Signs Last 8 Hrs Date Time Temp Pulse Resp B/P (MAP) Pulse Ox O2 Delivery O2 Flow Rate FiO2 09/20/17 09:42 36.7 113 32 170/77 (108) 93 Nasal Cannula 15.0 09/20/17 07:49 36.7 119 18 167/79 (108) 92 Oxymask 14.0 09/20/17 07:13 93 Oxymask 14.0 Last Recorded Weight Weight (Kilograms): 80.600 Physical Exam General Appearance: no apparent distress Head: normocephalic, atraumatic Eyes: PERRL, EOMI Neck: no adenopathy Respiratory/Chest: lungs clear, no respiratory distress Cardiovascular: regular rate, rhythm Abdomen/GI: normal bowel sounds, non tender, soft Genitourinary - Male: + pertinent finding (vega catheter draining dark urine) Extremities/Musculoskelatal: no calf tenderness, no pedal edema Neurologic/Psych: alert, oriented x 3 Social History Smokeless Tobacco Use: No Alcohol Use: none Drug Use: none 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) Laboratory Results Past 24 Hours 09/20/17 05:37 Red Blood Count 3.94, Mean Corpuscular Volume 72.1, Mean Corpuscular Hemoglobin 26.6, Mean Corpuscular Hemoglobin Concent 37.0, Neutrophils (%) (Auto) 85.9, Lymphocytes (%) (Auto) 6.1, Monocytes (%) (Auto) 6.2, Eosinophils (%) (Auto) 0.1 , Basophils (%) (Auto) 0.2, Neutrophils # (Auto) 25.28, Lymphocytes # (Auto) 1.79, Monocytes # (Auto) 1.82, Eosinophils # (Auto) 0.02, Basophils # (Auto) 0.06 09/20/17 05:37 Test 09/19/17 10:26 09/19/17 10:42 09/19/17 16:47 09/19/17 20:32 Absolute Reticulocyte Count 0.03 10^6/uL (0.02-0.10) Percent Reticulocyte Count 0.7 % (0.5-2.0) Heparin-PF4 Antibody Screen POS (NEG) Bedside Glucose 177 mg/dl (70-99) 232 mg/dl (70-99) Test 09/20/17 05:37 09/20/17 07:55 09/20/17 09:59 White Blood Count 29.40 K/uL (4.8-10.8) Red Blood Count 3.94 M/uL (4.7-6.1) Hemoglobin 10.5 g/dL (14.0-18.0) Hematocrit 28.4 % (42-52) Mean Corpuscular Volume 72.1 fL (80-100) Mean Corpuscular Hemoglobin 26.6 pg (25-34) Mean Corpuscular Hemoglobin Concent 37.0 g/dl (32-36) Platelet Count 37 K/uL (130-400) Neutrophils (%) (Auto) 85.9 % Lymphocytes (%) (Auto) 6.1 % Monocytes (%) (Auto) 6.2 % Eosinophils (%) (Auto) 0.1 % Basophils (%) (Auto) 0.2 % Neutrophils # (Auto) 25.28 K/uL (1.4-6.5) Lymphocytes # (Auto) 1.79 K/uL (1.2-3.4) Monocytes # (Auto) 1.82 K/uL (0.11-0.59) Eosinophils # (Auto) 0.02 K/uL (0-0.5) Basophils # (Auto) 0.06 K/uL (0-0.2) RDW Standard Deviation 37.7 fL (36.4-46.3) RDW Coefficient of Variation 14.4 % (11.5-14.5) Immature Granulocyte % (Auto) 1.5 % Immature Granulocyte # (Auto) 0.43 K/uL (0.00-0.02) Toxic Vacuolation 1+ Dohle Bodies 1+ Platelet Estimate SIGNIFIC DECREASED Target Cells 1+ Anion Gap 12.0 mmol/L (3-11) Est Creatinine Clear Calc Drug Dose 13.7 ml/min Estimated GFR () 13.0 Estimated GFR (Non- 11.2 BUN/Creatinine Ratio 24.7 (10-20) Calcium Level 8.1 mg/dl (8.5-10.1) Total Bilirubin 14.4 mg/dl (0.2-1) Direct Bilirubin 11.6 mg/dl (0-0.2) Aspartate Amino Transf (AST/SGOT) 121 U/L (15-37) Alanine Aminotransferase (ALT/SGPT) 98 U/L (12-78) Alkaline Phosphatase 431 U/L (45-117) Total Protein 6.5 gm/dl (6.4-8.2) Albumin 1.5 gm/dl (3.4-5.0) Bedside Glucose 141 mg/dl (70-99) Allergies Coded Allergies: No Known Allergies (Unverified , 09/17/17) Medications Current Inpatient Medications Medications (Trade) Dose Ordered Sig/Candelaria Route Start Time Stop Time Status Last Admin Dose Admin Aspirin (Ecotrin Tab) 81 mg QAM PO 09/17/17 13:00 10/17/17 12:59 09/20/17 09:46 81 MG Al Hydrox/Mg Hydrox/Simethicone (Maalox Max Susp) 15 ml Q4H PRN PO 09/17/17 08:30 10/17/17 08:29 Lidocaine (Lidoderm Patch 5%) 1 patch QAM TD 09/18/17 09:00 10/18/17 08:59 09/20/17 09:46 1 PATCH Miscellaneous (Remove Lidoderm Patch) 1 ea DAILY@21 N/A 09/17/17 21:00 10/17/17 20:59 09/19/17 20:34 1 EA Metoprolol Tartrate (Lopressor Tab) 25 mg BID PO 09/18/17 21:00 10/18/17 20:59 09/20/17 09:46 25 MG Amlodipine Besylate (Norvasc Tab) 10 mg QAM PO 09/19/17 09:00 10/19/17 08:59 09/20/17 09:45 10 MG Ampicillin Sodium 2000 mg/Sodium Chloride 100 ml @ 200 mls/hr Q12H IV 09/19/17 10:00 09/30/17 22:29 09/20/17 09:58 200 MLS/HR Sodium Bicarbonate 50 meq/Sodium Chloride 1,050 ml @ 100 mls/hr [id number] IV 09/20/17 10:00 09/22/17 06:00 UNV Impression (1) Acute renal failure (2) Hyperbilirubinemia (3) UTI (urinary tract infection) (4) Leukocytosis (5) Thrombocytopenia (6) Anemia (7) Gram-negative bacteremia Mr. Brett Emmanuel is a 72-year-old male inmate who was transferred from the [facility] for evaluation of progressive symptoms of weakness, anorexia, nausea, abdominal discomfort and left hip pain. Clinical presentation consistent with severe sepsis. Blood cultures growing gram negative rods with dhaliwal sensitive E coli in urine. Patient is receiving treatment with Zosyn. Medical history is notable for a BPH, urinary obstruction with chronic indwelling Vega as well as an elevated PSA. Initial evaluation is notable for SONY, hyperbilirubinemia (direct), hypoalbuminemia, thrombocytopenia, anemia and a marked leukocytosis. Peripheral smear reviewed. No evidence of hematologic malignancy or hemolytic anemia. Platelet count continues to fall. INR and PTT are slightly elevated. Fibrinogen is elevated which is not consistent with DIC and less consistent with chronic liver disease. HIT antibody negative. Noncontrast CT scan of the abdomen and pelvis was reviewed on admission. The kidneys are normal in appearance. There is no evidence of obstruction. Urine is turbid with gross hematuria. UA documented hematuria, proteinuria, pyuria. Urine and blood cultures are positive for pansensitive E. Coli. Liver is not cirrhotic appearing. RUQ US documented enlarged GB without obvious stone or obstruction. MRCP was negative Patient has had R hip pain. X-ray shows degenerative changes of the hip. No evidence of metastatic disease Recommendations SONY/ATN: -- Monitor metabolic profile daily -- Change IVF to 0.45NS w/ 50mEq NaHCO3 to allow free water and correction of both metabolic acidosis and hypernatremia -- Document I/O's -- Medications are appropriately dosed for renal function Severe sepsis with gram negative bacteremia and pansensitive E coli UTI: -- Remains on Ampicillin -- Clinically improving Thrombocytopenia: -- Possibly secondary to sepsis -- Fibrinogen not consistent with DIC -- Peripheral smear negative for schistocytes -- HIV screen has been discussed. Consent signed and test has been ordered Elevated PSA/urinary obstruction: -- Vega to gravity -- Will consult Urology to assess due to BPH and elevated PSA
--- NOTE | 2017-09-20 10:39 | Gastroenterology Progress Note ---
Progress Note Date of Service: Sep 20, 2017 Subjective Pt evaluation today including: conversation w/ patient, physical exam, chart review, lab review, review of inpatient medication list Pt denies any fever, chills. Does feels SOB, was on Oxymask 14L 92%. He ate breakfast well w/o n/v, abd pain. Noted LFTs increased: Tbili 14, Dbili 12, AST 121, AL 98, Alk phos 431. Lipase normal 202. MRCP done yesterday w/o biliary dilation, and there's a normal gallbladder. Cr decreasing to 4. WBC decreasing to 29K. He's still on Ampicillin IV Review of Systems Constitutional: No fever, No chills Respiratory: + shortness of breath, No cough Cardiac: No chest pain Abdomen: No pain, No nausea, No vomiting Skin: + jaundice Medications Current Inpatient Medications Medications (Trade) Dose Ordered Sig/Candelaria Route Start Time Stop Time Status Last Admin Dose Admin Aspirin (Ecotrin Tab) 81 mg QAM PO 09/17/17 13:00 10/17/17 12:59 09/20/17 09:46 81 MG Al Hydrox/Mg Hydrox/Simethicone (Maalox Max Susp) 15 ml Q4H PRN PO 09/17/17 08:30 10/17/17 08:29 Lidocaine (Lidoderm Patch 5%) 1 patch QAM TD 09/18/17 09:00 10/18/17 08:59 09/20/17 09:46 1 PATCH Miscellaneous (Remove Lidoderm Patch) 1 ea DAILY@21 N/A 09/17/17 21:00 10/17/17 20:59 09/19/17 20:34 1 EA Metoprolol Tartrate (Lopressor Tab) 25 mg BID PO 09/18/17 21:00 10/18/17 20:59 09/20/17 09:46 25 MG Amlodipine Besylate (Norvasc Tab) 10 mg QAM PO 09/19/17 09:00 10/19/17 08:59 09/20/17 09:45 10 MG Ampicillin Sodium 2000 mg/Sodium Chloride 100 ml @ 200 mls/hr Q12H IV 09/19/17 10:00 09/30/17 22:29 09/20/17 09:58 200 MLS/HR Sodium Bicarbonate 50 meq/Sodium Chloride 1,050 ml @ 100 mls/hr [id number] IV 09/20/17 11:00 09/22/17 06:00 Objective Vital Signs Date Time Temp Pulse Resp B/P (MAP) Pulse Ox O2 Delivery O2 Flow Rate FiO2 09/20/17 09:42 36.7 113 32 170/77 (108) 93 Nasal Cannula 15.0 09/20/17 07:49 36.7 119 18 167/79 (108) 92 Oxymask 14.0 09/20/17 07:13 93 Oxymask 14.0 09/20/17 01:45 104 95 50 09/19/17 23:55 BiPAP 09/19/17 23:30 36.8 101 20 157/77 (103) 96 BiPAP 09/19/17 22:31 94 94 50 09/19/17 21:16 91 Partial Rebreather 15.0 09/19/17 21:05 86 Oxymask 15.0 Humidified Oxygen 09/19/17 20:33 114 160/73 (102) 09/19/17 19:18 113 96 60 09/19/17 18:58 106 99 60 09/19/17 15:38 116 91 60 09/19/17 15:17 Oxymask 8.0 09/19/17 15:07 92 Oxymask 8.0 09/19/17 14:59 37.0 108 20 143/71 (95) 87 Nasal Cannula 6.0 09/19/17 11:58 37.4 101 16 125/72 (89) 94 Nasal Cannula 6.0 09/19/17 11:45 Nasal Cannula 6.0 Physical Exam General Appearance: + mild distress (appears short of breath; Oxymask was removed because he was eating currently on NC 10L ) Eyes: PERRL, EOMI, + pertinent finding (icteric sclera) Respiratory/Chest: normal breath sounds, no respiratory distress, no accessory muscle use Cardiovascular: regular rate, rhythm, no gallop, no murmur Abdomen: normal bowel sounds, non tender, soft Extremities: normal inspection, no pedal edema, no calf tenderness Neurologic/Psych: alert, normal mood/affect, oriented x 3 Skin: + jaundice Laboratory Results Last 24 Hours Test 09/19/17 10:42 09/19/17 16:47 09/19/17 20:32 09/20/17 05:37 Heparin-PF4 Antibody Screen POS Bedside Glucose 177 mg/dl 232 mg/dl White Blood Count 29.40 K/uL Red Blood Count 3.94 M/uL Hemoglobin 10.5 g/dL Hematocrit 28.4 % Mean Corpuscular Volume 72.1 fL Mean Corpuscular Hemoglobin 26.6 pg Mean Corpuscular Hemoglobin Concent 37.0 g/dl Platelet Count 37 K/uL Neutrophils (%) (Auto) 85.9 % Lymphocytes (%) (Auto) 6.1 % Monocytes (%) (Auto) 6.2 % Eosinophils (%) (Auto) 0.1 % Basophils (%) (Auto) 0.2 % Neutrophils # (Auto) 25.28 K/uL Lymphocytes # (Auto) 1.79 K/uL Monocytes # (Auto) 1.82 K/uL Eosinophils # (Auto) 0.02 K/uL Basophils # (Auto) 0.06 K/uL RDW Standard Deviation 37.7 fL RDW Coefficient of Variation 14.4 % Immature Granulocyte % (Auto) 1.5 % Immature Granulocyte # (Auto) 0.43 K/uL Toxic Vacuolation 1+ Dohle Bodies 1+ Platelet Estimate SIGNIFIC DECREASED Target Cells 1+ Sodium Level 148 mmol/L Potassium Level 4.0 mmol/L Chloride Level 115 mmol/L Carbon Dioxide Level 21 mmol/L Anion Gap 12.0 mmol/L Blood Urea Nitrogen 117 mg/dl Creatinine 4.74 mg/dl Est Creatinine Clear Calc Drug Dose 13.7 ml/min Estimated GFR () 13.0 Estimated GFR (Non- 11.2 BUN/Creatinine Ratio 24.7 Random Glucose 139 mg/dl Calcium Level 8.1 mg/dl Total Bilirubin 14.4 mg/dl Direct Bilirubin 11.6 mg/dl Aspartate Amino Transf (AST/SGOT) 121 U/L Alanine Aminotransferase (ALT/SGPT) 98 U/L Alkaline Phosphatase 431 U/L Total Protein 6.5 gm/dl Albumin 1.5 gm/dl Test 09/20/17 07:55 09/20/17 09:59 Bedside Glucose 141 mg/dl Assessment and Plan Patient is a 72 year old male with recent history of urinary retention and placement of a vega admitted with severe gram negative sepsis (source appears to be the urine) with associated renal injury as well as elevated liver enzymes (cholestatic) related to sepsis. No indication of biliary obstruction on CT, u/ s and MRCP. Plans - Continue antibx for sepsis - LFTs increasing; Acute hepatitis negative, HIV pending. Will obtain autoimmune , hereditary liver disease, viral illness serologies to rule out other possible liver diseases, Utox, APAP level - Obtain Liver doppler to r/o Budd Chiari - Monitor LFTs, PT/INR and Cr daily. If INR rises, this may indicate worsening liver function/failure and would consider transfer to tertiary care center - Will consider liver bx if not improve in next few days. I performed a history and physical examination of the patient, including specifically on physical exam - abdomen is soft.I have discussed the patient's management with Kaitlynn. Please refer to the VEHICLE WASHER's note for the documented findings and plan of care. Patient with severe sepsis, on BiPAP, leukocytosis has not improved well. has E.coli bacteremia. INR is normal hence no evidence of acute liver failure. Likely Cholaestatic LFTs due to sepsis or DILI, no evidence of obstruction. Also need to r/o Autoimmune, Viral, PBC, budd chiari and other etiologies. Serology. Sono with Doppler. Monitor INR daily, once elevated will consider transfer to liver center. Treatment of sepsis, consider ID evaluation for ABx Mx.
[2017-09-20] MEDS: SODIUM BICARBONATE 8.4% INJ 50 MEQ in SODIUM CHLORIDE 0.45% 1000ML 1,000 ML IV SCH ×2 (11:38→21:09)
--- NOTE | 2017-09-20 21:00 | DIAGNOSTIC IMAGING REPORT ---
ULTRASOUND DUPLEX STUDY OF THE PORTAL AND HEPATIC VEINS CLINICAL HISTORY: Elevated LFTs. 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 COMPARISON STUDY: Biliary ultrasound dated 10-03 FINDINGS: The splenic vein is patent with normal directional flow. The portal veins are patent with normal directional flow. The hepatic artery is patent. The hepatic veins and IVC are patent. Areas of hepatic hypoechogenicity, while nonspecific likely represent focal fatty sparing the setting of hepatic steatosis. IMPRESSION: The portal and hepatic veins are patent with normal directional flow Electronically signed by: Anthony Sanchez M.D. 09/20/2017 8:59 PM Dictated Date/Time: 09/20/2017 8:56 PM
[2017-09-21] VITALS (15 sets, daily range): BP systolic 130–169; BP diastolic 70–99; PULSE 89–117; TEMP 36.5–37.3; O2SAT 92–98
[2017-09-21] MEDS ORDERED: VANCOMYCIN INJ 1,000 MG in SODIUM CHLORIDE 0.9% 250ML 250 ML IV STA (03:01)
[2017-09-21] MEDS ORDERED: PIPERACILL/TAZOBAC IV 4.5 GM in DEXTROSE 5% 100ML 100 ML IV SCH (03:15)
[2017-09-21] MEDS ORDERED: PIPERACILL/TAZOBAC CONSULT ACTIVE PRN (03:15)
[2017-09-21] MEDS ORDERED: VANCOMYCIN CONSULT ACTIVE PRN ×2 (03:15)
[2017-09-21] MEDS ORDERED: PIPERACILL/TAZOBAC IV 4.5 GM in DEXTROSE 5% 100ML IV ONE (03:30)
[2017-09-21] MEDS ORDERED: VANCOMYCIN INJ 1,500 MG in SODIUM CHLORIDE 0.9% 500ML 500 ML IV SCH (03:30)
[2017-09-21] MEDS: METHYLPREDNISOLONE IV 40 MG in SYRINGE 0 ML IV SCH ×2 (04:00→15:42)
--- NOTE | 2017-09-21 06:34 | Surgery Progress Note ---
Surgery Progress Note Date of Service Sep 21, 2017. Subjective awake, alert- has O2 mask in place no abd pain, sneha diet Objective Vital Signs: Date Time Temp Pulse Resp B/P (MAP) Pulse Ox O2 Delivery O2 Flow Rate FiO2 09/21/17 04:07 117 98 50 09/21/17 03:42 36.8 101 38 93 09/21/17 01:35 110 93 50 09/21/17 00:01 106 97 60 09/20/17 23:34 BiPAP 09/20/17 22:52 36.8 101 18 165/76 (105) 97 BiPAP 09/20/17 21:59 97 96 60 09/20/17 21:00 88 159/70 (99) 09/20/17 20:12 114 168/71 (103) 96 BiPAP 09/20/17 19:20 114 95 60 09/20/17 15:40 94 BiPAP 15.0 60 09/20/17 15:30 36.3 111 18 162/78 (106) 94 BiPAP 09/20/17 14:08 100 94 60 09/20/17 09:42 36.7 113 32 170/77 (108) 93 Nasal Cannula 15.0 09/20/17 07:49 36.7 119 18 167/79 (108) 92 Oxymask 14.0 09/20/17 07:13 93 Oxymask 14.0 General Appearance: + mild distress Respiratory/Chest: + pertinent finding (short of breath- O2 in place) Abdomen: normal bowel sounds, non tender, soft Laboratory Results: Results Past 24 Hours Test 09/20/17 07:55 09/20/17 09:59 09/20/17 11:19 09/20/17 11:55 Range/Units Bedside Glucose 141 148 70-99 mg/dl Monoscreen NEG NEG HIV (1&2) Ab and P24 Ag, 4th Gener NEG NEG Test 09/20/17 13:35 09/20/17 13:58 09/20/17 17:05 09/20/17 19:01 Range/Units Acetaminophen Level 10-30 ug/ml Bedside Glucose 176 70-99 mg/dl Test 09/20/17 20:26 09/21/17 02:39 09/21/17 04:44 Range/Units Bedside Glucose 193 70-99 mg/dl Blood Gas Sample Site L Radial Bedside Blood Gas pH (LAB) 7.51 7.35-7.45 Bedside Blood Gas pCO2 (LAB) 26 35-46 mmHg Bedside Blood Gas pO2 (LAB) 57 80-95 mmHg Bedside Blood Gas HCO3 (LAB) 21 19-24 meq/L Bedside Blood Gas Total CO2 22 24-31 mEq/l Bedside Blood Gas Base Excess (LAB) -2.0 -9-1.8 meq/L Bedside Blood Gas O2 Saturation 93.0 90-95 % Román Test Pass Oxygen Delivery Device BIPAP Bedside Oxygen Rate (breaths/min) 12 Bedside FiO2 50 % Blood Gas IPAP 10 Assessment & Plan 09/21/17- No evidence or sxs of severe cholecystitis- edema from underlying sepsis, hepatorenal dysfunction- significant thrombocytopenia. will sign off- call w/ questions as needed 09/19/17- No evidence of necrotizing cholecystitis- scheduled for MRCP Does not require urgent surgery. Cont to follow. E Coli in urine Gm neg in blood. 09/18/17- does not appear to have necrotizing cholecystitis or need urgent surgery. Will be interesting to see if urine and blood are same organism. GI evaluation pending. check am labs 09/19/17- No evidence of necrotizing cholecystitis- scheduled for MRCP Does not require urgent surgery. Cont to follow. E Coli in urine Gm neg in blood. 09/18/17- does not appear to have necrotizing cholecystitis or need urgent surgery. Will be interesting to see if urine and blood are same organism. GI evaluation pending. check am labs
--- NOTE | 2017-09-21 07:20 | DIAGNOSTIC IMAGING REPORT ---
CHEST ONE VIEW PORTABLE CLINICAL HISTORY: 72 years-old Male presenting with Respiratory distress. TECHNIQUE: Portable upright AP view of the chest was obtained. COMPARISON: 09/19/2017. FINDINGS: Cardiomediastinal silhouette normal. Persistent elevation of the right hemidiaphragm. Diffuse hazy opacities throughout both lungs with a slightly less patchy and more diffuse, mild increase in density. No pleural effusion or pneumothorax. Osseous structures normal. Upper abdomen normal. IMPRESSION: 1. Diffuse mild increased density of the lungs. This can be seen in the setting of diffuse alveolar damage, pulmonary edema, atypical pneumonia, or smoke inhalation among other etiologies. Electronically signed by: Suman Cope M.D. 09/21/2017 7:19 AM Dictated Date/Time: 09/21/2017 7:15 AM
--- NOTE | 2017-09-21 07:46 | Progress Note ---
Subjective Date of Service: Sep 20, 2017. Subjective Pt evaluation today including: conversation w/ patient, physical exam, lab review, conversation w/ business system consultant, review of inpatient medication list Pain: denies pain PO Intake: tolerating liquids Voiding: vega catheter in place patient reports that he is breathing better no pain really unable to breath well without the BIPAP today reviewed labs, Cr down slightly to 4.74, WBC quite high at 29k HIV, hepatitis negative Problem List Medical Problems: (1) Acute renal failure Status: Acute (2) Hyperbilirubinemia Status: Acute (3) Leukocytosis Status: Acute (4) UTI (urinary tract infection) Status: Acute Medications Current Inpatient Medications Medications (Trade) Dose Ordered Sig/Candelaria Route Start Time Stop Time Status Last Admin Dose Admin Aspirin (Ecotrin Tab) 81 mg QAM PO 09/17/17 13:00 10/17/17 12:59 09/20/17 09:46 81 MG Al Hydrox/Mg Hydrox/Simethicone (Maalox Max Susp) 15 ml Q4H PRN PO 09/17/17 08:30 10/17/17 08:29 Lidocaine (Lidoderm Patch 5%) 1 patch QAM TD 09/18/17 09:00 10/18/17 08:59 09/20/17 09:46 1 PATCH Miscellaneous (Remove Lidoderm Patch) 1 ea DAILY@21 N/A 09/17/17 21:00 10/17/17 20:59 09/20/17 20:15 1 EA Metoprolol Tartrate (Lopressor Tab) 25 mg BID PO 09/18/17 21:00 10/18/17 20:59 09/20/17 20:15 25 MG Amlodipine Besylate (Norvasc Tab) 10 mg QAM PO 09/19/17 09:00 10/19/17 08:59 09/20/17 09:45 10 MG Ampicillin Sodium 2000 mg/Sodium Chloride 100 ml @ 200 mls/hr Q12H IV 09/19/17 10:00 09/30/17 22:29 09/20/17 09:58 200 MLS/HR Sodium Bicarbonate 50 meq/Sodium Chloride 1,050 ml @ 100 mls/hr [id number] IV 09/20/17 11:00 09/22/17 06:00 09/20/17 21:09 100 MLS/HR Objective Vital Signs Date Time Temp Pulse Resp B/P (MAP) Pulse Ox O2 Delivery O2 Flow Rate FiO2 09/20/17 21:59 97 96 60 09/20/17 21:00 88 159/70 (99) 09/20/17 20:12 114 168/71 (103) 96 BiPAP 09/20/17 19:20 114 95 60 09/20/17 15:40 94 BiPAP 15.0 60 09/20/17 15:30 36.3 111 18 162/78 (106) 94 BiPAP 09/20/17 14:08 100 94 60 09/20/17 09:42 36.7 113 32 170/77 (108) 93 Nasal Cannula 15.0 09/20/17 07:49 36.7 119 18 167/79 (108) 92 Oxymask 14.0 09/20/17 07:13 93 Oxymask 14.0 09/20/17 01:45 104 95 50 09/19/17 23:55 BiPAP 09/19/17 23:30 36.8 101 20 157/77 (103) 96 BiPAP Physical Exam General Appearance: WD/WN, no apparent distress Eyes: EOMI, + abnormal sclerae exam (icterus) ENT: normal ENT inspection, hearing grossly normal, pharynx normal Neck: supple, no adenopathy, no JVD, trachea midline Respiratory/Chest: + decreased breath sounds, + accessory muscle use, + rhonchi Cardiovascular: no edema, no gallop, no JVD, no murmur, + tachycardia Abdomen: normal bowel sounds, non tender, soft, no organomegaly Extremities: normal range of motion, non-tender, normal inspection, no pedal edema, no calf tenderness, pelvis stable 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: + abnormal gait, + motor weakness Skin: + jaundice Laboratory Results Last 24 Hours Test 09/20/17 05:37 09/20/17 07:55 09/20/17 09:59 09/20/17 11:19 White Blood Count 29.40 K/uL Red Blood Count 3.94 M/uL Hemoglobin 10.5 g/dL Hematocrit 28.4 % Mean Corpuscular Volume 72.1 fL Mean Corpuscular Hemoglobin 26.6 pg Mean Corpuscular Hemoglobin Concent 37.0 g/dl Platelet Count 37 K/uL Neutrophils (%) (Auto) 85.9 % Lymphocytes (%) (Auto) 6.1 % Monocytes (%) (Auto) 6.2 % Eosinophils (%) (Auto) 0.1 % Basophils (%) (Auto) 0.2 % Neutrophils # (Auto) 25.28 K/uL Lymphocytes # (Auto) 1.79 K/uL Monocytes # (Auto) 1.82 K/uL Eosinophils # (Auto) 0.02 K/uL Basophils # (Auto) 0.06 K/uL RDW Standard Deviation 37.7 fL RDW Coefficient of Variation 14.4 % Immature Granulocyte % (Auto) 1.5 % Immature Granulocyte # (Auto) 0.43 K/uL Toxic Vacuolation 1+ Dohle Bodies 1+ Platelet Estimate SIGNIFIC DECREASED Target Cells 1+ Sodium Level 148 mmol/L Potassium Level 4.0 mmol/L Chloride Level 115 mmol/L Carbon Dioxide Level 21 mmol/L Anion Gap 12.0 mmol/L Blood Urea Nitrogen 117 mg/dl Creatinine 4.74 mg/dl Est Creatinine Clear Calc Drug Dose 13.7 ml/min Estimated GFR () 13.0 Estimated GFR (Non- 11.2 BUN/Creatinine Ratio 24.7 Random Glucose 139 mg/dl Calcium Level 8.1 mg/dl Total Bilirubin 14.4 mg/dl Direct Bilirubin 11.6 mg/dl Aspartate Amino Transf (AST/SGOT) 121 U/L Alanine Aminotransferase (ALT/SGPT) 98 U/L Alkaline Phosphatase 431 U/L Total Protein 6.5 gm/dl Albumin 1.5 gm/dl Bedside Glucose 141 mg/dl Monoscreen NEG HIV (1&2) Ab and P24 Ag, 4th Gener NEG Test 09/20/17 11:55 09/20/17 13:35 09/20/17 13:58 09/20/17 17:05 Bedside Glucose 148 mg/dl 176 mg/dl Acetaminophen Level ug/ml Test 09/20/17 19:01 Assessment and Plan UROSEPSIS with severe acute renal failure and metabolic acidosis in a 72 yo male with history of hypertension, BPH. - UTI with severe sepsis: blood cultures and urine culture grew pansensitive E coli initially treated with Zosyn, changed to Cipro with results of culture afebrile, still tachycardic, WBC quite high at 29k will need 14 days total of antibiotics from negative blood culture - Metabolic acidosis with acute respiratory alkalosis due to severe sepsis, anion gap still 12 on 09/20 continue NaHCO3 in fluids per nephrology - SONY: likely ATN, slowly improving Cr is 4.7, UO is adequate nephrology following, continue IV fluids - Hepatitis: liver enzymes remain elevated GI following serology panel sent out, HIV, Hepatitis negative MRCP essentially normal, liver US normal, no evidence of portal vein thrombosis may be a result of sepsis surgery signed off HTN: Resumed metoprolol and amlodipine Left hip pain Chronic from likely OA will monitor placed on Lidoderm patch will hold nsaids and tylenol due to elevated LFT and Creatinine BPH: will monitor. vega placed Patient is LEVEL 5 CODE STATUS DVT: HEP GI PROTONIX Clear liquid diet. Continued [facility] stay due to: abnormal vital signs, voiding difficulties Discharge planning: uncertain
[2017-09-21] MEDS: SODIUM BICARBONATE 8.4% INJ 50 MEQ in SODIUM CHLORIDE 0.45% 1000ML 1,000 ML IV SCH (08:27)
[2017-09-21] MEDS: METOPROLOL TARTRATE 25 MG TAB PO SCH ×2 (08:27→20:35)
[2017-09-21] MEDS: GUAIFENESIN 200 MG TAB PO SCH ×5 (08:27→23:11)
[2017-09-21] MEDS: ASPIRIN 81 MG ECTAB PO SCH (08:27)
[2017-09-21] MEDS: LIDODERM (LIDOCAINE) PATCH 5% TD SCH (08:28)
[2017-09-21] MEDS: AMLODIPINE BESYLATE 5 MG TAB PO SCH (08:28)
[2017-09-21 08:49] LABS: ALBUMIN 1.4 gm/dl (3.4-5.0); CALCIUM 8.2 mg/dl (8.5-10.1); CREATININE 4.38 mg/dl (0.60-1.40); POTASSIUM 3.8 mmol/L (3.5-5.1); TOTAL PROTEIN 6.5 gm/dl (6.4-8.2)
[2017-09-21 09:00] LABS: BASO % 0.1 %; BASO ABS # 0.04 K/uL (0-0.2); EOS % 0.1 %; EOS ABS # 0.04 K/uL (0-0.5); HEMATOCRIT 25.9 % (42-52); HEMOGLOBIN 9.4 g/dL (14.0-18.0); IG# 0.49 K/uL (0.00-0.02); LYMPH ABS # 1.11 K/uL (1.2-3.4); MEAN CELL VOLUME 72.1 fL (80-100); MEAN CORPUSCULAR HEMOGLOBIN 26.2 pg (25-34); MEAN CORPUSCULAR HGB CONC 36.3 g/dl (32-36); MONO % 5.7 %; MONO ABS # 1.56 K/uL (0.11-0.59); NEUT % 88.3 %; NEUT ABS # 24.26 K/uL (1.4-6.5); PLATELET COUNT 77 K/uL (130-400); RED CELL DISTRIBUTION WIDTH CV 14.5 % (11.5-14.5); RED CELL DISTRIBUTION WIDTH SD 38.1 fL (36.4-46.3)
[2017-09-21] MEDS ORDERED: VANCOMYCIN INJ 1,000 MG in SODIUM CHLORIDE 0.9% 250ML 250 ML IV SCH (09:00)
[2017-09-21 09:27] LABS: INR 1.2 (0.9-1.1)
--- NOTE | 2017-09-21 10:24 | Nephrology Progress Note ---
Nephrology Progress Note Date of Service Sep 21, 2017. Chief Complaint SONY Subjective Mr. Emmanuel was seen and examined in the ICU this morning. He was transferred to the ICU yesterday evening due to progressive dyspnea. CXR films reviewed this morning show bilateral interstitial infiltrates. Although patient is nonoliguric he is ~ 7 L volume positive and weight has risen 4 kg. Mr. Emmanuel denies fever, angina or productive cough Review of Systems Constitutional: No fever Cardiovascular: No chest pain Respiratory: + dyspnea at rest Abdomen: No pain, No vomiting Extremities: No leg edema A complete review of systems was performed. Pertinent positives are noted above. All other systems are negative. Vital Signs Last 8 Hrs Date Time Temp Pulse Resp B/P (MAP) Pulse Ox O2 Delivery O2 Flow Rate FiO2 09/21/17 08:11 37.0 111 33 169/75 (106) 95 BiPAP 50 111 09/21/17 08:01 95 BiPAP 15.0 50 09/21/17 07:30 110 95 50 09/21/17 04:07 117 98 50 09/21/17 04:00 93 BiPAP 50 09/21/17 03:42 36.8 101 38 93 Last Recorded Weight Weight (Kilograms): 81.400 Physical Exam General Appearance: no apparent distress, + pertinent finding (icteric) Head: normocephalic, atraumatic Eyes: PERRL, EOMI Neck: no adenopathy Respiratory/Chest: + rales (bilaterally) Cardiovascular: + tachycardia Abdomen/GI: normal bowel sounds, non tender, soft Genitourinary - Male: + pertinent finding (vega catheter draining bloody urine ) Extremities/Musculoskelatal: no pedal edema Neurologic/Psych: alert, oriented x 3 Social History Smokeless Tobacco Use: No Alcohol Use: none Drug Use: none 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) Laboratory Results Past 24 Hours 09/21/17 07:43 Red Blood Count 3.59, Mean Corpuscular Volume 72.1, Mean Corpuscular Hemoglobin 26.2, Mean Corpuscular Hemoglobin Concent 36.3, Neutrophils (%) (Auto) 88.3, Lymphocytes (%) (Auto) 4.0, Monocytes (%) (Auto) 5.7, Eosinophils (%) (Auto) 0.1 , Basophils (%) (Auto) 0.1, Neutrophils # (Auto) 24.26, Lymphocytes # (Auto) 1.11, Monocytes # (Auto) 1.56, Eosinophils # (Auto) 0.04, Basophils # (Auto) 0.04 09/21/17 07:43 Test 09/20/17 11:19 09/20/17 11:55 09/20/17 13:35 09/20/17 13:58 Bedside Glucose 148 mg/dl (70-99) Acetaminophen Level ug/ml (10-30) Test 09/20/17 17:05 09/20/17 19:01 09/20/17 20:26 09/21/17 02:39 Bedside Glucose 176 mg/dl (70-99) 193 mg/dl (70-99) Blood Gas Sample Site L Radial Bedside Blood Gas pH (LAB) 7.51 (7.35-7.45) Bedside Blood Gas pCO2 (LAB) 26 mmHg (35-46) Bedside Blood Gas pO2 (LAB) 57 mmHg (80-95) Bedside Blood Gas HCO3 (LAB) 21 meq/L (19-24) Bedside Blood Gas Total CO2 22 mEq/l (24-31) Bedside Blood Gas Base Excess (LAB) -2.0 meq/L (-9-1.8) Bedside Blood Gas O2 Saturation 93.0 % (90-95) Román Test Pass Oxygen Delivery Device BIPAP Bedside Oxygen Rate (breaths/min) 12 Bedside FiO2 50 % Blood Gas IPAP 10 Test 09/21/17 07:43 09/21/17 08:48 White Blood Count 27.50 K/uL (4.8-10.8) Red Blood Count 3.59 M/uL (4.7-6.1) Hemoglobin 9.4 g/dL (14.0-18.0) Hematocrit 25.9 % (42-52) Mean Corpuscular Volume 72.1 fL (80-100) Mean Corpuscular Hemoglobin 26.2 pg (25-34) Mean Corpuscular Hemoglobin Concent 36.3 g/dl (32-36) Platelet Count 77 K/uL (130-400) Neutrophils (%) (Auto) 88.3 % Lymphocytes (%) (Auto) 4.0 % Monocytes (%) (Auto) 5.7 % Eosinophils (%) (Auto) 0.1 % Basophils (%) (Auto) 0.1 % Neutrophils # (Auto) 24.26 K/uL (1.4-6.5) Lymphocytes # (Auto) 1.11 K/uL (1.2-3.4) Monocytes # (Auto) 1.56 K/uL (0.11-0.59) Eosinophils # (Auto) 0.04 K/uL (0-0.5) Basophils # (Auto) 0.04 K/uL (0-0.2) RDW Standard Deviation 38.1 fL (36.4-46.3) RDW Coefficient of Variation 14.5 % (11.5-14.5) Immature Granulocyte % (Auto) 1.8 % Immature Granulocyte # (Auto) 0.49 K/uL (0.00-0.02) Large Platelets 2+ Polychromasia 1+ Target Cells 2+ Acanthocytes 1+ Anion Gap 13.0 mmol/L (3-11) Est Creatinine Clear Calc Drug Dose 14.8 ml/min Estimated GFR () 14.3 Estimated GFR (Non- 12.4 BUN/Creatinine Ratio 24.7 (10-20) Calcium Level 8.2 mg/dl (8.5-10.1) Total Bilirubin 16.2 mg/dl (0.2-1) Direct Bilirubin 12.6 mg/dl (0-0.2) Aspartate Amino Transf (AST/SGOT) 109 U/L (15-37) Alanine Aminotransferase (ALT/SGPT) 94 U/L (12-78) Alkaline Phosphatase 410 U/L (45-117) Total Protein 6.5 gm/dl (6.4-8.2) Albumin 1.4 gm/dl (3.4-5.0) Prothrombin Time 12.5 SECONDS (9.0-12.0) Prothromb Time International Ratio 1.2 (0.9-1.1) Allergies Coded Allergies: No Known Allergies (Unverified , 09/17/17) Medications Current Inpatient Medications Medications (Trade) Dose Ordered Sig/Candelaria Route Start Time Stop Time Status Last Admin Dose Admin Aspirin (Ecotrin Tab) 81 mg QAM PO 09/17/17 13:00 10/17/17 12:59 09/21/17 08:27 81 MG Al Hydrox/Mg Hydrox/Simethicone (Maalox Max Susp) 15 ml Q4H PRN PO 09/17/17 08:30 10/17/17 08:29 Lidocaine (Lidoderm Patch 5%) 1 patch QAM TD 09/18/17 09:00 10/18/17 08:59 09/20/17 09:46 1 PATCH Miscellaneous (Remove Lidoderm Patch) 1 ea DAILY@21 N/A 09/17/17 21:00 10/17/17 20:59 09/20/17 20:15 1 EA Metoprolol Tartrate (Lopressor Tab) 25 mg BID PO 09/18/17 21:00 10/18/17 20:59 09/21/17 08:27 25 MG Amlodipine Besylate (Norvasc Tab) 10 mg QAM PO 09/19/17 09:00 10/19/17 08:59 09/21/17 08:28 10 MG Miscellaneous Information (Consult) 1 ea UD PRN N/A 09/21/17 03:15 10/21/17 03:14 Miscellaneous Information (Consult) 1 ea UD PRN N/A 09/21/17 03:15 10/21/17 03:14 Methylprednisolone Sodium Succinate 40 mg/Syringe 0.64 ml @ 1.5 mls/min Q12H IV 09/21/17 04:00 10/21/17 03:59 Guaifenesin (Organidin Nr Tab) 200 mg Q4H PO 09/21/17 04:00 10/21/17 03:59 09/21/17 08:27 200 MG Piperacillin Sod/ Tazobactam Sod 4.5 gm/Dextrose 120 ml @ 30 mls/hr Q12H IV 09/21/17 14:00 09/28/17 13:59 Impression (1) Acute renal failure (2) Hyperbilirubinemia (3) UTI (urinary tract infection) (4) Leukocytosis (5) Thrombocytopenia (6) Anemia (7) Gram-negative bacteremia Mr. Emmanuel is an inmate from [facility] for evaluation of progressive symptoms of weakness, anorexia, nausea, abdominal discomfort and left hip pain. Clinical presentation consistent with severe sepsis. Blood and urine cultures have grown out dhaliwal sensitive E coli. Patient was treated with Zosyn. Medical history is notable for a BPH, urinary obstruction with chronic indwelling Vega as well as an elevated PSA. Initial evaluation is notable for SONY, hyperbilirubinemia (direct), hypoalbuminemia, thrombocytopenia, anemia and a marked leukocytosis. Peripheral smear was negative for hematologic malignancy or hemolytic anemia. Platelet count continues to fall. INR and PTT are slightly elevated. Fibrinogen is elevated which is not consistent with DIC and less consistent with chronic liver disease. 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 The kidneys are normal in appearance. There is no evidence of obstruction. Urine is turbid with gross hematuria. UA documented hematuria, proteinuria, pyuria. Urine and blood cultures are positive for pansensitive E. Coli. Liver is not cirrhotic appearing. RUQ US documented enlarged GB without obvious stone or obstruction. MRCP was negative Patient has had R hip pain. X-ray shows degenerative changes of the hip. No evidence of metastatic disease Recommendations SONY / ATN: -- Monitor metabolic profile daily -- Patient is developing volume overload. 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 Heparin has been discontinued Elevated PSA/urinary obstruction: -- Vega to gravity -- Awaiting Urology input
--- NOTE | 2017-09-21 10:31 | Gastroenterology Progress Note ---
Progress Note Date of Service: Sep 21, 2017 Subjective Pt evaluation today including: conversation w/ patient, physical exam, chart review, lab review, review of inpatient medication list Pt transferred to [facility] ICU yesterday for respiratory distress. Placed on BiPAP, O2 sat 95%. He denies any n/v, abd pain. LFTs similar to yesterday w mild increase in Tbili 14 -> 16, AST/ALT in 100s, Alk phos 400s. INR 1.2. Cr decreased to 4.38 Review of Systems Constitutional: No fever Respiratory: + cough, + shortness of breath Cardiac: No chest pain Abdomen: No pain, No nausea, No vomiting Skin: + jaundice Medications Current Inpatient Medications Medications (Trade) Dose Ordered Sig/Candelaria Route Start Time Stop Time Status Last Admin Dose Admin Aspirin (Ecotrin Tab) 81 mg QAM PO 09/17/17 13:00 10/17/17 12:59 09/21/17 08:27 81 MG Al Hydrox/Mg Hydrox/Simethicone (Maalox Max Susp) 15 ml Q4H PRN PO 09/17/17 08:30 10/17/17 08:29 Lidocaine (Lidoderm Patch 5%) 1 patch QAM TD 09/18/17 09:00 10/18/17 08:59 09/20/17 09:46 1 PATCH Miscellaneous (Remove Lidoderm Patch) 1 ea DAILY@21 N/A 09/17/17 21:00 10/17/17 20:59 09/20/17 20:15 1 EA Metoprolol Tartrate (Lopressor Tab) 25 mg BID PO 09/18/17 21:00 10/18/17 20:59 09/21/17 08:27 25 MG Amlodipine Besylate (Norvasc Tab) 10 mg QAM PO 09/19/17 09:00 10/19/17 08:59 09/21/17 08:28 10 MG Miscellaneous Information (Consult) 1 ea UD PRN N/A 09/21/17 03:15 10/21/17 03:14 Miscellaneous Information (Consult) 1 ea UD PRN N/A 09/21/17 03:15 10/21/17 03:14 Methylprednisolone Sodium Succinate 40 mg/Syringe 0.64 ml @ 1.5 mls/min Q12H IV 09/21/17 04:00 10/21/17 03:59 Guaifenesin (Organidin Nr Tab) 200 mg Q4H PO 09/21/17 04:00 10/21/17 03:59 09/21/17 08:27 200 MG Piperacillin Sod/ Tazobactam Sod 4.5 gm/Dextrose 120 ml @ 30 mls/hr Q12H IV 09/21/17 14:00 09/28/17 13:59 Furosemide 40 mg/ Syringe 4 ml @ 4 mls/min NOW IV 09/21/17 10:15 10/21/17 10:14 UNV Objective Vital Signs Date Time Temp Pulse Resp B/P (MAP) Pulse Ox O2 Delivery O2 Flow Rate FiO2 09/21/17 08:11 37.0 111 33 169/75 (106) 95 BiPAP 50 111 09/21/17 08:01 95 BiPAP 15.0 50 09/21/17 07:30 110 95 50 09/21/17 04:07 117 98 50 09/21/17 04:00 93 BiPAP 50 09/21/17 03:42 36.8 101 38 93 09/21/17 01:35 110 93 50 09/21/17 00:01 106 97 60 09/20/17 23:34 BiPAP 09/20/17 22:52 36.8 101 18 165/76 (105) 97 BiPAP 09/20/17 21:59 97 96 60 09/20/17 21:00 88 159/70 (99) 09/20/17 20:12 114 168/71 (103) 96 BiPAP 09/20/17 19:20 114 95 60 09/20/17 15:40 94 BiPAP 15.0 60 09/20/17 15:30 36.3 111 18 162/78 (106) 94 BiPAP 09/20/17 14:08 100 94 60 Physical Exam General Appearance: no apparent distress Eyes: EOMI, + pertinent finding (icteric sclera) Neck: supple, no JVD, trachea midline Respiratory/Chest: normal breath sounds, + pertinent finding (Shallow, fast breathing ) Cardiovascular: regular rate, rhythm, no gallop, no murmur Abdomen: normal bowel sounds, non tender, soft Extremities: normal inspection, no pedal edema, no calf tenderness Neurologic/Psych: alert, normal mood/affect, oriented x 3 Skin: + jaundice Laboratory Results Last 24 Hours Test 2/5/18 11:19 09/20/17 11:55 09/20/17 13:35 09/20/17 13:58 Bedside Glucose 148 mg/dl Acetaminophen Level ug/ml Test 09/20/17 17:05 09/20/17 19:01 09/20/17 20:26 09/21/17 02:39 Bedside Glucose 176 mg/dl 193 mg/dl Blood Gas Sample Site L Radial Bedside Blood Gas pH (LAB) 7.51 Bedside Blood Gas pCO2 (LAB) 26 mmHg Bedside Blood Gas pO2 (LAB) 57 mmHg Bedside Blood Gas HCO3 (LAB) 21 meq/L Bedside Blood Gas Total CO2 22 mEq/l Bedside Blood Gas Base Excess (LAB) -2.0 meq/L Bedside Blood Gas O2 Saturation 93.0 % Romná Test Pass Oxygen Delivery Device BIPAP Bedside Oxygen Rate (breaths/min) 12 Bedside FiO2 50 % Blood Gas IPAP 10 Test 09/21/17 07:43 09/21/17 08:48 White Blood Count 27.50 K/uL Red Blood Count 3.59 M/uL Hemoglobin 9.4 g/dL Hematocrit 25.9 % Mean Corpuscular Volume 72.1 fL Mean Corpuscular Hemoglobin 26.2 pg Mean Corpuscular Hemoglobin Concent 36.3 g/dl Platelet Count 77 K/uL Neutrophils (%) (Auto) 88.3 % Lymphocytes (%) (Auto) 4.0 % Monocytes (%) (Auto) 5.7 % Eosinophils (%) (Auto) 0.1 % Basophils (%) (Auto) 0.1 % Neutrophils # (Auto) 24.26 K/uL Lymphocytes # (Auto) 1.11 K/uL Monocytes # (Auto) 1.56 K/uL Eosinophils # (Auto) 0.04 K/uL Basophils # (Auto) 0.04 K/uL RDW Standard Deviation 38.1 fL RDW Coefficient of Variation 14.5 % Immature Granulocyte % (Auto) 1.8 % Immature Granulocyte # (Auto) 0.49 K/uL Large Platelets 2+ Polychromasia 1+ Target Cells 2+ Acanthocytes 1+ Sodium Level 150 mmol/L Potassium Level 3.8 mmol/L Chloride Level 117 mmol/L Carbon Dioxide Level 20 mmol/L Anion Gap 13.0 mmol/L Blood Urea Nitrogen 108 mg/dl Creatinine 4.38 mg/dl Est Creatinine Clear Calc Drug Dose 14.8 ml/min Estimated GFR () 14.3 Estimated GFR (Non- 12.4 BUN/Creatinine Ratio 24.7 Random Glucose 143 mg/dl Calcium Level 8.2 mg/dl Total Bilirubin 16.2 mg/dl Direct Bilirubin 12.6 mg/dl Aspartate Amino Transf (AST/SGOT) 109 U/L Alanine Aminotransferase (ALT/SGPT) 94 U/L Alkaline Phosphatase 410 U/L Total Protein 6.5 gm/dl Albumin 1.4 gm/dl Prothrombin Time 12.5 SECONDS Prothromb Time International Ratio 1.2 Assessment and Plan Patient is a 72 year old male with recent history of urinary retention and placement of a vega admitted with severe gram negative sepsis (source appears to be the urine) with associated renal injury as well as elevated liver enzymes (cholestatic) related to sepsis. No indication of biliary obstruction on CT, u/ s and MRCP. Plans - Continue antibx for sepsis - LFTs increased but stable; Acute hepatitis negative, HIV pending. Will F/U autoimmune, hereditary liver disease, viral illness serologies to rule out other possible liver diseases, Utox, APAP level - Obtain Liver doppler to r/o Budd Chiari -> patent portal and hepatic veins - Monitor LFTs, PT/INR and Cr daily. If INR rises, this may indicate worsening liver function/failure and would consider transfer to tertiary care center - Will consider liver bx if not improve in next few days. - Consulted Infectious Disease for antibiotic management. I performed a history and physical examination of the patient, including specifically on physical exam - abdomen is soft.I have discussed the patient's management with Kaitlynn. Please refer to the MANAGER STUDIO's note for the documented findings and plan of care. Monitor LFTs and INR. ABx as per ID.
[2017-09-21] MEDS ORDERED: FUROSEMIDE INJ 40 MG in SYRINGE 0 ML IV SCH (11:00)
--- NOTE | 2017-09-21 12:51 | Urology Consultation ---
History General Date of Service: Sep 21, 2017. Chief Complaint: elevated PSA Primary Care Physician: Jamarcus MURPHY Pt seen a urologist before?: Yes (Dr. Toribio, Dr. 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 He report difficulty voiding the past few weeks. Vega catheter was placed at [facility] ~2 weeks ago for UR. Vega noted to be draining yellow urine today with some clot. The pt states he is uncertain whether he had any gross hematuria prior admission. The pt also reports he has never seen a urologist in the past, but it is noted that he saw both Dr. Toribio in [address] Prabhakar in 2016 for elevated PSA and prostate nodule. Prostate biopsy was recommended in March 2017, but appointments were canceled. PSA on admission noted to be 74.6. CT on admission negative for stones. He is noted to be uroseptic with blood and urine cultures growing e coli. Imaging Imaging: CT Laboratory Last 24 Hours Test 09/20/17 13:35 09/20/17 13:58 09/20/17 17:05 09/20/17 19:01 Acetaminophen Level ug/ml Bedside Glucose 176 mg/dl Test 09/20/17 20:26 09/21/17 02:39 09/21/17 07:03 09/21/17 07:43 Bedside Glucose 193 mg/dl 163 mg/dl Blood Gas Sample Site L Radial Bedside Blood Gas pH (LAB) 7.51 Bedside Blood Gas pCO2 (LAB) 26 mmHg Bedside Blood Gas pO2 (LAB) 57 mmHg Bedside Blood Gas HCO3 (LAB) 21 meq/L Bedside Blood Gas Total CO2 22 mEq/l Bedside Blood Gas Base Excess (LAB) -2.0 meq/L Bedside Blood Gas O2 Saturation 93.0 % Román Test Pass Oxygen Delivery Device BIPAP Bedside Oxygen Rate (breaths/min) 12 Bedside FiO2 50 % Blood Gas IPAP 10 White Blood Count 27.50 K/uL Red Blood Count 3.59 M/uL Hemoglobin 9.4 g/dL Hematocrit 25.9 % Mean Corpuscular Volume 72.1 fL Mean Corpuscular Hemoglobin 26.2 pg Mean Corpuscular Hemoglobin Concent 36.3 g/dl Platelet Count 77 K/uL Neutrophils (%) (Auto) 88.3 % Lymphocytes (%) (Auto) 4.0 % Monocytes (%) (Auto) 5.7 % Eosinophils (%) (Auto) 0.1 % Basophils (%) (Auto) 0.1 % Neutrophils # (Auto) 24.26 K/uL Lymphocytes # (Auto) 1.11 K/uL Monocytes # (Auto) 1.56 K/uL Eosinophils # (Auto) 0.04 K/uL Basophils # (Auto) 0.04 K/uL RDW Standard Deviation 38.1 fL RDW Coefficient of Variation 14.5 % Immature Granulocyte % (Auto) 1.8 % Immature Granulocyte # (Auto) 0.49 K/uL Large Platelets 2+ Polychromasia 1+ Target Cells 2+ Acanthocytes 1+ Sodium Level 150 mmol/L Potassium Level 3.8 mmol/L Chloride Level 117 mmol/L Carbon Dioxide Level 20 mmol/L Anion Gap 13.0 mmol/L Blood Urea Nitrogen 108 mg/dl Creatinine 4.38 mg/dl Est Creatinine Clear Calc Drug Dose 14.8 ml/min Estimated GFR () 14.3 Estimated GFR (Non- 12.4 BUN/Creatinine Ratio 24.7 Random Glucose 143 mg/dl Calcium Level 8.2 mg/dl Total Bilirubin 16.2 mg/dl Direct Bilirubin 12.6 mg/dl Aspartate Amino Transf (AST/SGOT) 109 U/L Alanine Aminotransferase (ALT/SGPT) 94 U/L Alkaline Phosphatase 410 U/L Total Protein 6.5 gm/dl Albumin 1.4 gm/dl Test 09/21/17 08:48 09/21/17 11:31 Prothrombin Time 12.5 SECONDS Prothromb Time International Ratio 1.2 Bedside Glucose 245 mg/dl Problem List Medical Problems: (1) Acute renal failure Status: Acute (2) Hyperbilirubinemia Status: Acute (3) Leukocytosis Status: Acute (4) UTI (urinary tract infection) Status: Acute Past History BPH, diabetes, hepatitis (A), hypertension, other (anemia, thrombocytopenia, elevated PSA ) Past Surgical History: no surgical history Family History prostate cancer Social History Smoking: non-smoker Alcohol: no current use Drug use: none 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) Immunizations History of Influenza Vaccine: Unknown History of Tetanus Vaccine?: Unknown History of Pneumococcal: Unknown History of Hepatitis B Vaccine: Unknown History of MDRO No Allergies Coded Allergies: No Known Allergies (Unverified , 09/17/17) Medications Home Medications: Home Meds and Scripts Medications Dose Route/Sig Max Daily Dose Days Date Category Flomax (Tamsulosin Hcl) 0.4 Mg Cap 0.4 Mg PO BID 09/17/17 Reported Hctz (Hydrochlorothiazide) 25 Mg Tab 25 Mg PO DAILY 09/17/17 Reported Proscar (Finasteride) 5 Mg Tab 5 Mg PO DAILY 09/17/17 Reported Mevacor (Lovastatin) 20 Mg Tab 20 Mg PO HS 09/17/17 Reported Lopressor (Metoprolol Tartrate) 25 Mg Tab 25 Mg PO BID 09/17/17 Reported Naprosyn (Naproxen) 500 Mg Tab 500 Mg PO BID 09/17/17 Reported Tylenol (Acetaminophen) 500 Mg Tab 500 Mg PO TID 09/17/17 Reported Vasotec (Enalapril Maleate) 20 Mg Tab 1 Tab PO DAILY 09/17/17 Reported Aspirin Ec (Aspirin) 81 Mg Tab 81 Mg PO DAILY 09/17/17 Reported Zyrtec (Cetirizine HCl) 10 Mg Tab 10 Mg PO DAILY 09/17/17 Reported Norvasc (Amlodipine Besylate) 10 Mg Tab 10 Mg PO DAILY 09/17/17 Reported Inpatient Medications: Current Inpatient Medications Medications (Trade) Dose Ordered Sig/Candelaria Route Start Time Stop Time Status Last Admin Dose Admin Aspirin (Ecotrin Tab) 81 mg QAM PO 09/17/17 13:00 10/17/17 12:59 09/21/17 08:27 81 MG Al Hydrox/Mg Hydrox/Simethicone (Maalox Max Susp) 15 ml Q4H PRN PO 09/17/17 08:30 10/17/17 08:29 Lidocaine (Lidoderm Patch 5%) 1 patch QAM TD 09/18/17 09:00 10/18/17 08:59 09/20/17 09:46 1 PATCH Miscellaneous (Remove Lidoderm Patch) 1 ea DAILY@21 N/A 09/17/17 21:00 10/17/17 20:59 09/20/17 20:15 1 EA Metoprolol Tartrate (Lopressor Tab) 25 mg BID PO 09/18/17 21:00 10/18/17 20:59 09/21/17 08:27 25 MG Amlodipine Besylate (Norvasc Tab) 10 mg QAM PO 09/19/17 09:00 10/19/17 08:59 09/21/17 08:28 10 MG Miscellaneous Information (Consult) 1 ea UD PRN N/A 09/21/17 03:15 10/21/17 03:14 Miscellaneous Information (Consult) 1 ea UD PRN N/A 09/21/17 03:15 10/21/17 03:14 Methylprednisolone Sodium Succinate 40 mg/Syringe 0.64 ml @ 1.5 mls/min Q12H IV 09/21/17 04:00 10/21/17 03:59 Guaifenesin (Organidin Nr Tab) 200 mg Q4H PO 09/21/17 04:00 10/21/17 03:59 09/21/17 11:16 200 MG Piperacillin Sod/ Tazobactam Sod 4.5 gm/Dextrose 120 ml @ 30 mls/hr Q12H IV 09/21/17 14:00 09/28/17 13:59 Tamsulosin HCl (Flomax Cap) 0.4 mg HS PO 09/21/17 21:00 10/21/17 20:59 UNV Review of Systems Review of Systems Constitutional: No fever, No chills Eyes: No double vision Neurological: No dizzy Endocrine: No excessive thirst Gastrointestinal: No abdominal pain, No nausea, No vomiting Cardiovascular: No chest pain Respiratory: + shortness of breath (improving since admission per the pt) Skin: No rash Musculoskeletal: No back pain Male : + urinary retention, + blood in urine Physical Exam Vital Signs: Vital Signs Past 12 Hours Date Time Temp Pulse Resp B/P (MAP) Pulse Ox O2 Delivery O2 Flow Rate FiO2 09/21/17 12:14 95 BiPAP 15.0 50 09/21/17 08:11 37.0 111 33 169/75 (106) 95 BiPAP 50 111 09/21/17 08:01 95 BiPAP 15.0 50 09/21/17 07:30 110 95 50 09/21/17 04:07 117 98 50 09/21/17 04:00 93 BiPAP 50 09/21/17 03:42 36.8 101 38 93 09/21/17 01:35 110 93 50 Physical Exam: General Appearance: no apparent distress Eyes: bilateral eyes normal inspection ENT: hearing grossly normal Neck: no JVD Respiratory/Chest: no respiratory distress, no accessory muscle use Cardiovascular: no JVD Extremities: normal inspection 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: alert, normal mood/affect, oriented x 3 Skin: normal color Assessment & Plan Assessment & Plan A/P: Urosepsis, gross hematuria, BPH with UR, elevated PSA Suspect the pt has prostatitis in the setting of urosepsis, and recommend he remain on abx for 4-6 weeks. Will plan to leave vega cattheter in place for now. Outpatient TOV in 2-4 weeks. Will initiate Flomax for BPH with UR. Monitor for orthostasis after administration. Continue to recommend prostate bx in the setting of elevated PSA and hx of prostate nodule. ISAAC avoided today in the setting of prostatitis. Will need to await full resolution of prostatitis prior to performing prostate bx. Would consider bone scan while inpatient considering hx of failure to follow- up. Thanks for the consult. Will continue to follow along with primary service. Agree with bone scan and if suspicious for metastatic disease pt needs to be started on casodex and a biopsy would be needed to start lupron Urosepsis seems a likely cause of infection . Treat with appropriate antibiotics
[2017-09-21] MEDS: PIPERACILL/TAZOBAC IV 4.5 GM in DEXTROSE 5% 100ML IV SCH (14:23)
--- NOTE | 2017-09-21 14:38 | Progress Note ---
Progress Note Date of Service Sep 21, 2017. Progress Note ID Consult Dictated #[id number] A/P: 1. E. coli Septicemia - likely related to gu source 2. Suspected prostatitis, ? underlying malignancy with elevated PSA 3. Leukocytosis 4. Transaminitis/jaundice -continue zosyn for now, follow repeat blood cultures -Elizabeth with urology, would give 4 weeks for suspected prostate involvement -will need prostate biopsy -will follow, thank you
--- NOTE | 2017-09-21 14:38 | Progress Note ---
Subjective Date of Service: Sep 21, 2017. Subjective Pt evaluation today including: conversation w/ patient, physical exam, lab review, conversation w/ direct sales consultant, review of inpatient medication list Pain: no pain PO Intake: tolerating liquids Voiding: vega catheter in place patient breathing better today, tried high flow nasal canula and tolerating well can continue BIPAP at night eating better with high flow reviewed labs, Cr going down, UO adequate but volume overloaded, Dr. Handy ordered Lasix reviewed notes from GI and nephrology Problem List Medical Problems: (1) Acute renal failure Status: Acute (2) Hyperbilirubinemia Status: Acute (3) Leukocytosis Status: Acute (4) UTI (urinary tract infection) Status: Acute Review of Systems Constitutional: + weakness, + fatigue Respiratory: + cough, + shortness of breath Neurologic: + weakness Skin: + color change All Other Systems: Reviewed and Negative Medications Current Inpatient Medications Medications (Trade) Dose Ordered Sig/Candelaria Route Start Time Stop Time Status Last Admin Dose Admin Aspirin (Ecotrin Tab) 81 mg QAM PO 09/17/17 13:00 10/17/17 12:59 09/21/17 08:27 81 MG Al Hydrox/Mg Hydrox/Simethicone (Maalox Max Susp) 15 ml Q4H PRN PO 09/17/17 08:30 10/17/17 08:29 Lidocaine (Lidoderm Patch 5%) 1 patch QAM TD 09/18/17 09:00 10/18/17 08:59 09/20/17 09:46 1 PATCH Miscellaneous (Remove Lidoderm Patch) 1 ea DAILY@21 N/A 09/17/17 21:00 10/17/17 20:59 09/20/17 20:15 1 EA Metoprolol Tartrate (Lopressor Tab) 25 mg BID PO 09/18/17 21:00 10/18/17 20:59 09/21/17 08:27 25 MG Amlodipine Besylate (Norvasc Tab) 10 mg QAM PO 09/19/17 09:00 10/19/17 08:59 09/21/17 08:28 10 MG Miscellaneous Information (Consult) 1 ea UD PRN N/A 09/21/17 03:15 10/21/17 03:14 Miscellaneous Information (Consult) 1 ea UD PRN N/A 09/21/17 03:15 3/8/18 03:14 Methylprednisolone Sodium Succinate 40 mg/Syringe 0.64 ml @ 1.5 mls/min Q12H IV 09/21/17 04:00 10/21/17 03:59 Guaifenesin (Organidin Nr Tab) 200 mg Q4H PO 09/21/17 04:00 10/21/17 03:59 09/21/17 11:16 200 MG Piperacillin Sod/ Tazobactam Sod 4.5 gm/Dextrose 120 ml @ 30 mls/hr Q12H IV 09/21/17 14:00 09/28/17 13:59 09/21/17 14:23 30 MLS/HR Tamsulosin HCl (Flomax Cap) 0.4 mg HS PO 09/21/17 21:00 10/21/17 20:59 Objective Vital Signs Date Time Temp Pulse Resp B/P (MAP) Pulse Ox O2 Delivery O2 Flow Rate FiO2 09/21/17 12:34 36.7 102 24 155/74 (101) 94 BiPAP 50 102 09/21/17 12:14 95 BiPAP 15.0 50 09/21/17 08:11 37.0 111 33 169/75 (106) 95 BiPAP 50 111 09/21/17 08:01 95 BiPAP 15.0 50 09/21/17 07:30 110 95 50 09/21/17 04:07 117 98 50 09/21/17 04:00 93 BiPAP 50 09/21/17 03:42 36.8 101 38 93 09/21/17 01:35 110 93 50 09/21/17 00:01 106 97 60 09/20/17 23:34 BiPAP 09/20/17 22:52 36.8 101 18 165/76 (105) 97 BiPAP 09/20/17 21:59 97 96 60 09/20/17 21:00 88 159/70 (99) 09/20/17 20:12 114 168/71 (103) 96 BiPAP 09/20/17 19:20 114 95 60 09/20/17 15:40 94 BiPAP 15.0 60 09/20/17 15:30 36.3 111 18 162/78 (106) 94 BiPAP Physical Exam General Appearance: WD/WN, no apparent distress Eyes: EOMI, + abnormal sclerae exam (icterus) ENT: normal ENT inspection, hearing grossly normal, pharynx normal Neck: supple, no adenopathy, no JVD, trachea midline Respiratory/Chest: chest non-tender, lungs clear, no respiratory distress, + decreased breath sounds, + accessory muscle use Cardiovascular: no edema, no gallop, no JVD, no murmur, + tachycardia Abdomen: normal bowel sounds, non tender, soft, no organomegaly Extremities: normal range of motion, non-tender, normal inspection, no pedal edema, no calf tenderness 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: echo vascular tech II-XII nml as tested, normal mood/affect, oriented x 3, + abnormal gait, + motor weakness Skin: + jaundice Lymphatic: no adenopathy Laboratory Results Last 24 Hours Test 09/20/17 17:05 09/20/17 19:01 09/20/17 20:26 09/21/17 02:39 Bedside Glucose 176 mg/dl 193 mg/dl Blood Gas Sample Site L Radial Bedside Blood Gas pH (LAB) 7.51 Bedside Blood Gas pCO2 (LAB) 26 mmHg Bedside Blood Gas pO2 (LAB) 57 mmHg Bedside Blood Gas HCO3 (LAB) 21 meq/L Bedside Blood Gas Total CO2 22 mEq/l Bedside Blood Gas Base Excess (LAB) -2.0 meq/L Bedside Blood Gas O2 Saturation 93.0 % Román Test Pass Oxygen Delivery Device BIPAP Bedside Oxygen Rate (breaths/min) 12 Bedside FiO2 50 % Blood Gas IPAP 10 Test 09/21/17 07:03 09/21/17 07:43 09/21/17 08:48 09/21/17 11:31 Bedside Glucose 163 mg/dl 245 mg/dl White Blood Count 27.50 K/uL Red Blood Count 3.59 M/uL Hemoglobin 9.4 g/dL Hematocrit 25.9 % Mean Corpuscular Volume 72.1 fL Mean Corpuscular Hemoglobin 26.2 pg Mean Corpuscular Hemoglobin Concent 36.3 g/dl Platelet Count 77 K/uL Neutrophils (%) (Auto) 88.3 % Lymphocytes (%) (Auto) 4.0 % Monocytes (%) (Auto) 5.7 % Eosinophils (%) (Auto) 0.1 % Basophils (%) (Auto) 0.1 % Neutrophils # (Auto) 24.26 K/uL Lymphocytes # (Auto) 1.11 K/uL Monocytes # (Auto) 1.56 K/uL Eosinophils # (Auto) 0.04 K/uL Basophils # (Auto) 0.04 K/uL RDW Standard Deviation 38.1 fL RDW Coefficient of Variation 14.5 % Immature Granulocyte % (Auto) 1.8 % Immature Granulocyte # (Auto) 0.49 K/uL Large Platelets 2+ Polychromasia 1+ Target Cells 2+ Acanthocytes 1+ Sodium Level 150 mmol/L Potassium Level 3.8 mmol/L Chloride Level 117 mmol/L Carbon Dioxide Level 20 mmol/L Anion Gap 13.0 mmol/L Blood Urea Nitrogen 108 mg/dl Creatinine 4.38 mg/dl Est Creatinine Clear Calc Drug Dose 14.8 ml/min Estimated GFR () 14.3 Estimated GFR (Non- 12.4 BUN/Creatinine Ratio 24.7 Random Glucose 143 mg/dl Calcium Level 8.2 mg/dl Total Bilirubin 16.2 mg/dl Direct Bilirubin 12.6 mg/dl Aspartate Amino Transf (AST/SGOT) 109 U/L Alanine Aminotransferase (ALT/SGPT) 94 U/L Alkaline Phosphatase 410 U/L Total Protein 6.5 gm/dl Albumin 1.4 gm/dl Prothrombin Time 12.5 SECONDS Prothromb Time International Ratio 1.2 Assessment and Plan UROSEPSIS with severe acute renal failure and metabolic acidosis in a 72 yo male with history of hypertension, BPH. - UTI with severe sepsis: blood cultures and urine culture grew pansensitive E coli continue Zosyn IV afebrile, still tachycardic, WBC quite high at 27k but trending down overall will need 14 days total of antibiotics from negative blood culture for bacteremia however, Urology recommending 4-6 weeks total antibiotics due to suspected prostatitis repeating blood cultures since one of the two repeat cultures grew gram negative bacilli Acute hypoxic respiratory failure tolerating high flow nasal canula, breathing using accessory muscles but no signs of getting tired can use BIPAP at night look for improvement with Lasix to diurese and dry out lungs - Metabolic acidosis with acute respiratory alkalosis due to severe sepsis, anion gap still 13 today, BiCarb is 20 which is actually improving continue NaHCO3 in fluids per nephrology - SONY: likely ATN, slowly improving Cr is 4.3, UO is adequate nephrology following volume overloaded, stop fluids, give Lasix and follow response - Hepatitis: liver enzymes remain elevated GI following serology panel sent out, HIV, Hepatitis negative MRCP essentially normal, liver US normal, no evidence of portal vein thrombosis may be a result of sepsis surgery signed off may require liver biopsy and transfer if he does not return INR 1.2 so liver still functioning at this point Thrombocytopenia: 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, stop heparin platelets improved to 77 from 37 HTN: Resumed metoprolol and amlodipine Left hip pain Chronic from likely OA will monitor placed on Lidoderm patch will hold nsaids and tylenol due to elevated LFT and Creatinine BPH and elevated PSA, h/o prostate nodule appreciate urology consultation needs 4-6 weeks of antibiotics leave vega in place would need a biopsy eventually Patient is LEVEL 5 CODE STATUS DVT: GI PROTONIX Clear liquid diet. Continued [facility] stay due to: abnormal vital signs, voiding difficulties Discharge planning: uncertain
[2017-09-21 16:03] LABS: CALCIUM 8.3 mg/dl (8.5-10.1); CREATININE 4.49 mg/dl (0.60-1.40); POTASSIUM 3.7 mmol/L (3.5-5.1)
--- NOTE | 2017-09-21 20:30 | INFECT. DISEASE CONSULTATION ---
DATE OF CONSULTATION: 09/21/2017 HISTORY OF PRESENT ILLNESS: This is a 72-year-old gentleman who was admitted from [facility] presented after he was having difficulty with urination for some time prior to admission. Per the H&P, he did have a Hamm catheter placed for urinary retention at the present and that was 10 days prior to admission. He then had complaints of left hip pain and worsening loss of appetite and nausea. For this reason, he was brought to the hospital. He did undergo a CAT scan of the abdomen and pelvis on the 17 of September which showed minimal bilateral perinephric stranding, but a normal liver and gallbladder. He was found to have an elevated creatinine of 6.5 as well as an elevated white blood cell count of 35,000. He denies currently any fevers or chills prior to admission. As part of his workup, blood cultures were obtained in the Emergency Room and showed 2 sets are growing pansensitive E. coli. Urine culture from the is growing the same. His urinalysis had greater than 30 wbc's and 2+ bacteria at the time of admission. Repeat blood cultures were ordered on the and 1/2 sets are also positive for E. coli. Additional sets of blood cultures were obtained today. He was also found to have worsening LFTs, and surgery as well as GI evaluation have been obtained. A liver ultrasound did not show any gallbladder abnormality and there is no plan for surgical intervention. He continues with elevated LFTs and increased bilirubin. He is jaundiced on exam. He has been a thrombocytopenic, but this is improving somewhat. His white blood cell count has improved to 27. His creatinine is also improving to 4.3. He is being followed by nephrology here as well. He was given initially vancomycin and Zosyn and also some ampicillin from the to the . He currently is on Zosyn monotherapy. He does have a history of an elevated prostate specific antigen and also a history of prostate enlargement. He was scheduled sometime ago to have a biopsy; however, he canceled this appointment and has not had any additional prostate workup. He was seen by urology in consult earlier today and the plan is to continue the Hamm catheter and continue the patient on antibiotics for suspected prostatitis with the plan for biopsy in the future. He currently is on Zosyn and appears to be tolerating this well. Overall, he states he is feeling significantly better from admission to the hospital. He denies any fevers or chills and has been afebrile here since admission to the hospital. He denies any chest pain, cough or shortness of breath. He is receiving supplemental oxygen on my examination. His urinary catheter is in place. He denies any nausea, vomiting or abdominal pain at this time. He denies any diarrhea. There was a reported history of hematuria; however, he denies this prior to admission. His remaining review of systems is unremarkable. PAST MEDICAL HISTORY: Significant for history of hepatitis A, hypertension, BPH and an elevated PSA. SOCIAL HISTORY: Significant for incarceration. He denies any drug, alcohol or tobacco use. ALLERGIES: He has no known drug allergies. FAMILY HISTORY: Noncontributory. MEDICATIONS: Include Flomax, Zosyn, Solu-Medrol, guaifenesin, Norvasc, Lopressor, Lidoderm patch, aspirin, and Maalox. PHYSICAL EXAMINATION: VITAL SIGNS: He is afebrile and has been afebrile since admission to the hospital, pulse is 102, respiratory rate is in the 20s, blood pressure is 155/74, oxygen saturation is 94-95% on nasal BiPAP. GENERAL: He is awake, alert and oriented x3. He is in no acute distress on my examination. HEENT: Mucous membranes are dry. He does have scleral icterus and jaundice on exam. HEART: Regular and tachycardic. LUNGS: Clear with decreased breath sounds at the bases bilaterally. ABDOMEN: Soft and nondistended. EXTREMITIES: There is no edema. LABORATORY STUDIES: CBC today reveals a white blood cell count of 27.5, hemoglobin 9.4 and platelets are 77. Chemistry panel reveals a sodium of 150, potassium 3.8, chloride 117, bicarbonate 20, BUN 108, creatinine 4.3, glucose is 245. Total bilirubin is 16.2, direct bilirubin is 12.6, AST is 109, ALT is 94, alkaline phosphatase is 410. LFTs have been elevated since admission, but overall has been increasing, bilirubin at the time of admission was 10.4. PSA is elevated at 74.6. The urinalysis in the ER had large leukocyte esterase, positive nitrites, greater than 30 wbc's and 2+ bacteria. Urine drug screen from yesterday is pending. Hepatitis B antigen and hepatitis C antibody are negative. [place] screen is negative. HIV antibody is negative. Parvo is pending. Herpes simplex are pending. CMV and EBV are pending. Again, blood cultures from the ER on the are growing pansensitive E. coli. Urine culture is growing the same. Repeat blood cultures on the , 1-2 sets are growing E. coli. Repeat blood cultures on the are pending. IMAGING DATA: Most recent chest x-ray was done earlier this morning shows pulmonary edema. An ultrasound of the liver was obtained on the which showed patent veins. An MRCP was done on the , which shows normal gallbladder. Gallbladder ultrasound done on the again showed diffuse thickened gallbladder up to 6 mm, which was nonspecific. CAT scan of the abdomen in the ER showed normal liver, minor bilateral perinephric stranding, no calculi were identified. No free air was identified. ASSESSMENT AND PLAN: Escherichia coli septicemia, likely secondary to urinary source. At this time, I would maintain the patient on Zosyn. He will need 14 days minimum from his first negative blood culture; however, I agree with urology that there is likely a component of prostatitis and would treat for 4 weeks with intravenous antibiotics. Ideally, he could be changed to once daily dose with Rocephin but due to his worsening LFTs, I will continue him on Zosyn for now pending additional workup for this. Thank you for this consultation.
[2017-09-21] MEDS: TAMSULOSIN HCL 0.4 MG CAP PO SCH (20:36)
[2017-09-22] VITALS (8 sets, daily range): BP systolic 143–172; BP diastolic 67–90; PULSE 77–103; TEMP 36.6–37.2; O2SAT 94–100
[2017-09-22] MEDS: PIPERACILL/TAZOBAC IV 4.5 GM in DEXTROSE 5% 100ML IV SCH ×2 (02:01→14:42)
[2017-09-22] MEDS: GUAIFENESIN 200 MG TAB PO SCH ×6 (03:56→23:22)
[2017-09-22] MEDS: METHYLPREDNISOLONE IV 40 MG in SYRINGE 0 ML IV SCH ×2 (03:56→17:03)
[2017-09-22 06:03] LABS: NUCLEATED RED BLOOD CELL ABS 0.07 K/uL (0-0)
[2017-09-22 06:57] LABS: ALBUMIN 1.3 gm/dl (3.4-5.0); CALCIUM 8.1 mg/dl (8.5-10.1); CREATININE 4.54 mg/dl (0.60-1.40); POTASSIUM 3.5 mmol/L (3.5-5.1); TOTAL PROTEIN 6.5 gm/dl (6.4-8.2)
[2017-09-22 07:00] LABS: HEMATOCRIT 23.8 % (42-52); HEMOGLOBIN 8.6 g/dL (14.0-18.0); MEAN CELL VOLUME 71.5 fL (80-100); MEAN CORPUSCULAR HEMOGLOBIN 25.8 pg (25-34); MEAN CORPUSCULAR HGB CONC 36.1 g/dl (32-36); PLATELET COUNT 130 K/uL (130-400); RED CELL DISTRIBUTION WIDTH CV 14.5 % (11.5-14.5); RED CELL DISTRIBUTION WIDTH SD 37.2 fL (36.4-46.3); WHITE BLOOD COUNT 22.65 K/uL (4.8-10.8)
[2017-09-22] MEDS ORDERED: VANCOMYCIN INJ 1,250 MG in SODIUM CHLORIDE 0.9% 250ML 250 ML IV ONE (07:00)
[2017-09-22 07:01] LABS: BASO % 0.1 %; BASO ABS # 0.03 K/uL (0-0.2); IG# 0.33 K/uL (0.00-0.02); LYMPH % 4.6 %; LYMPH ABS # 1.04 K/uL (1.2-3.4); MONO % 3.6 %; MONO ABS # 0.81 K/uL (0.11-0.59); NEUT % 90.2 %; NEUT ABS # 20.44 K/uL (1.4-6.5)
[2017-09-22] MEDS: ASPIRIN 81 MG ECTAB PO SCH (08:34)
[2017-09-22] MEDS: AMLODIPINE BESYLATE 5 MG TAB PO SCH (08:34)
[2017-09-22] MEDS: METOPROLOL TARTRATE 25 MG TAB PO SCH ×2 (08:34→20:04)
[2017-09-22] MEDS: LIDODERM (LIDOCAINE) PATCH 5% TD SCH (08:35)
--- NOTE | 2017-09-22 09:43 | Nephrology Progress Note ---
Nephrology Progress Note Date of Service Sep 22, 2017. Chief Complaint SONY Subjective Mr. Emmanuel was seen & examined in the ICU this morning. staff anesthetist reports that patient had a brisk diuresis in response to IV Furosemide. Mr. Emmanuel states that his breathing is improved. He voices no new medical concerns. Review of Systems Constitutional: No fever Cardiovascular: No chest pain Respiratory: No dyspnea at rest Abdomen: No nausea, No vomiting Extremities: No leg edema A complete review of systems was performed. Pertinent positives are noted above. All other systems are negative. Vital Signs Last 8 Hrs Date Time Temp Pulse Resp B/P (MAP) Pulse Ox O2 Delivery O2 Flow Rate FiO2 09/22/17 08:02 37.2 83 27 160/70 (100) 94 High Flow Oxygen 15.0 50 09/22/17 08:00 High Flow Oxygen 15.0 50 09/22/17 04:00 High Flow Oxygen 15.0 50 09/22/17 03:35 36.8 103 18 145/67 (93) 100 High Flow Oxygen 15.0 50 Last Recorded Weight Weight (Kilograms): 80.400 Physical Exam General Appearance: no apparent distress Head: normocephalic, atraumatic Eyes: PERRL, EOMI Neck: no adenopathy Respiratory/Chest: lungs clear Cardiovascular: regular rate, rhythm Abdomen/GI: normal bowel sounds, non tender, soft Genitourinary - Male: + pertinent finding Extremities/Musculoskelatal: no calf tenderness Neurologic/Psych: alert, oriented x 3 Social History Smokeless Tobacco Use: No Alcohol Use: none Drug Use: none 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) Laboratory Results Past 24 Hours 09/22/17 05:49 Red Blood Count 3.33, Mean Corpuscular Volume 71.5, Mean Corpuscular Hemoglobin 25.8, Mean Corpuscular Hemoglobin Concent 36.1, Neutrophils (%) (Auto) 90.2, Lymphocytes (%) (Auto) 4.6, Monocytes (%) (Auto) 3.6, Eosinophils (%) (Auto) 0.0 , Basophils (%) (Auto) 0.1, Neutrophils # (Auto) 20.44, Lymphocytes # (Auto) 1.04, Monocytes # (Auto) 0.81, Eosinophils # (Auto) 0.00, Basophils # (Auto) 0.03 09/21/17 14:59 09/22/17 05:49 Test 09/21/17 11:31 09/21/17 14:59 09/21/17 15:58 09/21/17 20:23 Bedside Glucose 245 mg/dl (70-99) 193 mg/dl (70-99) 228 mg/dl (70-99) Anion Gap 13.0 mmol/L (3-11) Est Creatinine Clear Calc Drug Dose 14.4 ml/min Estimated GFR () 13.9 Estimated GFR (Non- 12.0 BUN/Creatinine Ratio 24.9 (10-20) Calcium Level 8.3 mg/dl (8.5-10.1) Test 09/22/17 05:49 09/22/17 06:39 09/22/17 09:14 White Blood Count 22.65 K/uL (4.8-10.8) Red Blood Count 3.33 M/uL (4.7-6.1) Hemoglobin 8.6 g/dL (14.0-18.0) Hematocrit 23.8 % (42-52) Mean Corpuscular Volume 71.5 fL (80-100) Mean Corpuscular Hemoglobin 25.8 pg (25-34) Mean Corpuscular Hemoglobin Concent 36.1 g/dl (32-36) Platelet Count 130 K/uL (130-400) Neutrophils (%) (Auto) 90.2 % Lymphocytes (%) (Auto) 4.6 % Monocytes (%) (Auto) 3.6 % Eosinophils (%) (Auto) 0.0 % Basophils (%) (Auto) 0.1 % Neutrophils # (Auto) 20.44 K/uL (1.4-6.5) Lymphocytes # (Auto) 1.04 K/uL (1.2-3.4) Monocytes # (Auto) 0.81 K/uL (0.11-0.59) Eosinophils # (Auto) 0.00 K/uL (0-0.5) Basophils # (Auto) 0.03 K/uL (0-0.2) RDW Standard Deviation 37.2 fL (36.4-46.3) RDW Coefficient of Variation 14.5 % (11.5-14.5) Immature Granulocyte % (Auto) 1.5 % Immature Granulocyte # (Auto) 0.33 K/uL (0.00-0.02) Nucleated RBC Absolute Count (auto) 0.07 K/uL (0-0) Nucleated Red Blood Cells % 0.3 % Target Cells 1+ Anion Gap 14.0 mmol/L (3-11) Est Creatinine Clear Calc Drug Dose 14.3 ml/min Estimated GFR () 13.7 Estimated GFR (Non- 11.9 BUN/Creatinine Ratio 27.9 (10-20) Calcium Level 8.1 mg/dl (8.5-10.1) Total Bilirubin 12.0 mg/dl (0.2-1) Direct Bilirubin 9.7 mg/dl (0-0.2) Aspartate Amino Transf (AST/SGOT) 143 U/L (15-37) Alanine Aminotransferase (ALT/SGPT) 128 U/L (12-78) Alkaline Phosphatase 381 U/L (45-117) Total Protein 6.5 gm/dl (6.4-8.2) Albumin 1.3 gm/dl (3.4-5.0) Random Vancomycin Level 12.4 mcg/ml Bedside Glucose 269 mg/dl (70-99) Date/Time Source Procedure Growth Status 09/21/17 11:00 Nasal MRSA DNA Surveillance Screen - Final Specimen Negative for MRSA by DNA Probe Complete Allergies Coded Allergies: No Known Allergies (Unverified , 09/17/17) Medications Current Inpatient Medications Medications (Trade) Dose Ordered Sig/Candelaria Route Start Time Stop Time Status Last Admin Dose Admin Aspirin (Ecotrin Tab) 81 mg QAM PO 09/17/17 13:00 10/17/17 12:59 09/22/17 08:34 81 MG Al Hydrox/Mg Hydrox/Simethicone (Maalox Max Susp) 15 ml Q4H PRN PO 09/17/17 08:30 10/17/17 08:29 Lidocaine (Lidoderm Patch 5%) 1 patch QAM TD 09/18/17 09:00 10/18/17 08:59 09/20/17 09:46 1 PATCH Miscellaneous (Remove Lidoderm Patch) 1 ea DAILY@21 N/A 09/17/17 21:00 10/17/17 20:59 09/20/17 20:15 1 EA Metoprolol Tartrate (Lopressor Tab) 25 mg BID PO 09/18/17 21:00 10/18/17 20:59 09/22/17 08:34 25 MG Amlodipine Besylate (Norvasc Tab) 10 mg QAM PO 09/19/17 09:00 10/19/17 08:59 09/22/17 08:34 10 MG Miscellaneous Information (Consult) 1 ea UD PRN N/A 09/21/17 03:15 10/21/17 03:14 Miscellaneous Information (Consult) 1 ea UD PRN N/A 09/21/17 03:15 10/21/17 03:14 Methylprednisolone Sodium Succinate 40 mg/Syringe 0.64 ml @ 1.5 mls/min Q12H IV 09/21/17 04:00 10/21/17 03:59 09/22/17 03:56 1.5 MLS/MIN Guaifenesin (Organidin Nr Tab) 200 mg Q4H PO 09/21/17 04:00 10/21/17 03:59 09/22/17 08:34 200 MG Piperacillin Sod/ Tazobactam Sod 4.5 gm/Dextrose 120 ml @ 30 mls/hr Q12H IV 09/21/17 14:00 09/28/17 13:59 09/22/17 02:01 30 MLS/HR Tamsulosin HCl (Flomax Cap) 0.4 mg HS PO 09/21/17 21:00 10/21/17 20:59 09/21/17 20:36 0.4 MG Impression (1) Acute renal failure (2) Hyperbilirubinemia (3) UTI (urinary tract infection) (4) Leukocytosis (5) Thrombocytopenia (6) Anemia (7) Gram-negative bacteremia Mr. Emmanuel is an inmate from [facility] admitted for evaluation of progressive symptoms of weakness, anorexia, nausea, abdominal discomfort and left hip pain. Clinical presentation consistent with severe sepsis. Blood and urine cultures have grown out dhaliwal sensitive E coli. Patient was treated with Zosyn. Medical history is notable for a BPH, urinary obstruction with chronic indwelling Hamm as well as an elevated PSA. Initial evaluation is notable for SONY, hyperbilirubinemia (direct), hypoalbuminemia, thrombocytopenia, anemia and a marked leukocytosis. Peripheral smear was negative for hematologic malignancy or hemolytic anemia. Platelet count continues to fall. INR and PTT are slightly elevated. Fibrinogen is elevated which is not consistent with DIC and less consistent with chronic liver disease. 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 The kidneys are normal in appearance. There is no evidence of obstruction. Urine is turbid with gross hematuria. UA documented hematuria, proteinuria, pyuria. Urine and blood cultures are positive for pansensitive E. Coli. Liver is not cirrhotic appearing. RUQ US documented enlarged GB without obvious stone or obstruction. MRCP was negative Patient has had R hip pain. X-ray shows degenerative changes of the hip. No evidence of metastatic disease Recommendations SONY / ATN: -- Monitor metabolic profile daily. -- Volume status has improved. Hold diuretics today and monitor. -- Document I/O's Severe sepsis with gram negative bacteremia and pansensitive E coli UTI: -- Now on Zosyn Thrombocytopenia: -- Possibly secondary to sepsis -- Fibrinogen not consistent with DIC -- Peripheral smear negative for schistocytes -- HIV was negative -- Repeat HIT study is positive. Heparin has been discontinued Elevated PSA/urinary obstruction: -- Hamm to gravity -- Urology consultation reviewed. Appreciate their assistance
[2017-09-22 09:58] LABS: INR 1.2 (0.9-1.1)
--- NOTE | 2017-09-22 11:19 | Gastroenterology Progress Note ---
Progress Note Date of Service: Sep 22, 2017 Subjective Pt evaluation today including: conversation w/ patient, physical exam, chart review, lab review, review of inpatient medication list Pt still feels fine, denies any abd pain, n/v. Wants to try more solid food. Last BM per his report maybe 2 days ago, doens't feel constipated. Review of Systems Constitutional: No fever, No chills Respiratory: No cough, No shortness of breath Cardiac: No chest pain Abdomen: No pain, No nausea, No vomiting Skin: + jaundice Medications Current Inpatient Medications Medications (Trade) Dose Ordered Sig/Candelaria Route Start Time Stop Time Status Last Admin Dose Admin Aspirin (Ecotrin Tab) 81 mg QAM PO 09/17/17 13:00 10/17/17 12:59 09/22/17 08:34 81 MG Al Hydrox/Mg Hydrox/Simethicone (Maalox Max Susp) 15 ml Q4H PRN PO 09/17/17 08:30 10/17/17 08:29 Lidocaine (Lidoderm Patch 5%) 1 patch QAM TD 09/18/17 09:00 10/18/17 08:59 09/20/17 09:46 1 PATCH Miscellaneous (Remove Lidoderm Patch) 1 ea DAILY@21 N/A 09/17/17 21:00 10/17/17 20:59 09/20/17 20:15 1 EA Metoprolol Tartrate (Lopressor Tab) 25 mg BID PO 09/18/17 21:00 10/18/17 20:59 09/22/17 08:34 25 MG Amlodipine Besylate (Norvasc Tab) 10 mg QAM PO 09/19/17 09:00 10/19/17 08:59 09/22/17 08:34 10 MG Miscellaneous Information (Consult) 1 ea UD PRN N/A 09/21/17 03:15 10/21/17 03:14 Methylprednisolone Sodium Succinate 40 mg/Syringe 0.64 ml @ 1.5 mls/min Q12H IV 09/21/17 04:00 10/21/17 03:59 09/22/17 03:56 1.5 MLS/MIN Guaifenesin (Organidin Nr Tab) 200 mg Q4H PO 09/21/17 04:00 10/21/17 03:59 09/22/17 08:34 200 MG Piperacillin Sod/ Tazobactam Sod 4.5 gm/Dextrose 120 ml @ 30 mls/hr Q12H IV 09/21/17 14:00 09/28/17 13:59 09/22/17 02:01 30 MLS/HR Tamsulosin HCl (Flomax Cap) 0.4 mg HS PO 09/21/17 21:00 10/21/17 20:59 09/21/17 20:36 0.4 MG Objective Vital Signs Date Time Temp Pulse Resp B/P (MAP) Pulse Ox O2 Delivery O2 Flow Rate FiO2 09/22/17 08:02 37.2 83 27 160/70 (100) 94 High Flow Oxygen 15.0 50 09/22/17 08:00 High Flow Oxygen 15.0 50 09/22/17 04:00 High Flow Oxygen 15.0 50 09/22/17 03:35 36.8 103 18 145/67 (93) 100 High Flow Oxygen 15.0 50 09/21/17 23:59 High Flow Oxygen 15.0 50 09/21/17 23:04 37.3 89 18 130/70 (90) 92 High Flow Oxygen 15.0 50 09/21/17 21:51 153/75 (101) 156/78 (104) 169/99 (122) 09/21/17 20:00 High Flow Oxygen 15.0 50 09/21/17 18:50 36.5 93 22 165/75 (105) 93 High Flow Oxygen 50 09/21/17 17:00 High Flow Oxygen 15.0 50 09/21/17 16:33 36.9 98 22 148/73 (98) 93 BiPAP 50 09/21/17 16:02 94 High Flow Oxygen 50.0 70 09/21/17 12:34 36.7 102 24 155/74 (101) 94 BiPAP 50 102 09/21/17 12:14 95 BiPAP 15.0 50 Physical Exam General Appearance: WD/WN, no apparent distress Eyes: EOMI, + pertinent finding (icteric sclera) Neck: supple, no JVD, trachea midline Respiratory/Chest: no respiratory distress, no accessory muscle use, + decreased breath sounds, + pertinent finding (On High flow O2 15L sat 94% ) Abdomen: normal bowel sounds, non tender, soft Extremities: normal inspection, no pedal edema, no calf tenderness Neurologic/Psych: alert, normal mood/affect, oriented x 3 Skin: + jaundice Laboratory Results Last 24 Hours Test 09/21/17 11:31 09/21/17 14:59 09/21/17 15:58 09/21/17 20:23 Bedside Glucose 245 mg/dl 193 mg/dl 228 mg/dl Sodium Level 147 mmol/L Potassium Level 3.7 mmol/L Chloride Level 115 mmol/L Carbon Dioxide Level 19 mmol/L Anion Gap 13.0 mmol/L Blood Urea Nitrogen 112 mg/dl Creatinine 4.49 mg/dl Est Creatinine Clear Calc Drug Dose 14.4 ml/min Estimated GFR () 13.9 Estimated GFR (Non- 12.0 BUN/Creatinine Ratio 24.9 Random Glucose 198 mg/dl Calcium Level 8.3 mg/dl Test 09/22/17 05:49 09/22/17 06:39 09/22/17 09:14 White Blood Count 22.65 K/uL Red Blood Count 3.33 M/uL Hemoglobin 8.6 g/dL Hematocrit 23.8 % Mean Corpuscular Volume 71.5 fL Mean Corpuscular Hemoglobin 25.8 pg Mean Corpuscular Hemoglobin Concent 36.1 g/dl Platelet Count 130 K/uL Neutrophils (%) (Auto) 90.2 % Lymphocytes (%) (Auto) 4.6 % Monocytes (%) (Auto) 3.6 % Eosinophils (%) (Auto) 0.0 % Basophils (%) (Auto) 0.1 % Neutrophils # (Auto) 20.44 K/uL Lymphocytes # (Auto) 1.04 K/uL Monocytes # (Auto) 0.81 K/uL Eosinophils # (Auto) 0.00 K/uL Basophils # (Auto) 0.03 K/uL RDW Standard Deviation 37.2 fL RDW Coefficient of Variation 14.5 % Immature Granulocyte % (Auto) 1.5 % Immature Granulocyte # (Auto) 0.33 K/uL Nucleated RBC Absolute Count (auto) 0.07 K/uL Nucleated Red Blood Cells % 0.3 % Target Cells 1+ Sodium Level 148 mmol/L Potassium Level 3.5 mmol/L Chloride Level 114 mmol/L Carbon Dioxide Level 20 mmol/L Anion Gap 14.0 mmol/L Blood Urea Nitrogen 127 mg/dl Creatinine 4.54 mg/dl Est Creatinine Clear Calc Drug Dose 14.3 ml/min Estimated GFR () 13.7 Estimated GFR (Non- 11.9 BUN/Creatinine Ratio 27.9 Random Glucose 229 mg/dl Calcium Level 8.1 mg/dl Total Bilirubin 12.0 mg/dl Direct Bilirubin 9.7 mg/dl Aspartate Amino Transf (AST/SGOT) 143 U/L Alanine Aminotransferase (ALT/SGPT) 128 U/L Alkaline Phosphatase 381 U/L Total Protein 6.5 gm/dl Albumin 1.3 gm/dl Random Vancomycin Level 12.4 mcg/ml Bedside Glucose 269 mg/dl Prothrombin Time 12.5 SECONDS Prothromb Time International Ratio 1.2 Assessment and Plan Patient is a 72 year old male with recent history of urinary retention and placement of a vega admitted with severe gram negative sepsis (source appears to be the urine) with associated renal injury as well as elevated liver enzymes (cholestatic) related to sepsis. No indication of biliary obstruction on CT, u/ s and MRCP. Tbili and Alk phose decreasing now WBC trending down. Plans - Continue antibx for sepsis; ID following - LFTs showed Tbili and alk phose coming down now, AST/ALT w 30 pts increase from yesterday; Acute hepatitis negative, HIV negative. Will F/U autoimmune, hereditary liver disease, viral illness serologies to rule out other possible liver diseases, Utox, APAP level (unable to be obtained) - Obtain Liver doppler to r/o Budd Chiari -> patent portal and hepatic veins - Monitor LFTs, PT/INR and Cr daily. If INR rises, this may indicate worsening liver function/failure and would consider transfer to tertiary care center - Will consider liver bx if not improved. - Advanced to diabetic, dental soft diet. I performed a history and physical examination of the patient, including specifically on physical exam - abdomen is soft.I have discussed the patient's management with Kaitlynn. Please refer to the [employer]'s note for the documented findings and plan of care. LFTs improving and bili trending down after changing ABx and better controlling his sepsis. Seems to be recovering. Continue ABx and monitor LFTs.
--- NOTE | 2017-09-22 11:57 | Progress Note ---
Subjective Date of Service: Sep 22, 2017. Subjective in bed, remains on nasal high flow O2. 09/21 cultures + gnr, previous culture with gnr. bili decreased but LFTs increased. remains on zosyn, tolerating well. afebrile. WBC remains elevated. Problem List Medical Problems: (1) Acute renal failure Status: Acute (2) Hyperbilirubinemia Status: Acute (3) Leukocytosis Status: Acute (4) UTI (urinary tract infection) Status: Acute Objective Vital Signs Date Time Temp Pulse Resp B/P (MAP) Pulse Ox O2 Delivery O2 Flow Rate FiO2 09/22/17 11:19 90 35 146/74 (98) 96 High Flow Oxygen 15.0 50 09/22/17 08:02 37.2 83 27 160/70 (100) 94 High Flow Oxygen 15.0 50 09/22/17 08:00 High Flow Oxygen 15.0 50 09/22/17 04:00 High Flow Oxygen 15.0 50 09/22/17 03:35 36.8 103 18 145/67 (93) 100 High Flow Oxygen 15.0 50 09/21/17 23:59 High Flow Oxygen 15.0 50 09/21/17 23:04 37.3 89 18 130/70 (90) 92 High Flow Oxygen 15.0 50 09/21/17 21:51 153/75 (101) 156/78 (104) 169/99 (122) 09/21/17 20:00 High Flow Oxygen 15.0 50 09/21/17 18:50 36.5 93 22 165/75 (105) 93 High Flow Oxygen 50 09/21/17 17:00 High Flow Oxygen 15.0 50 09/21/17 16:33 36.9 98 22 148/73 (98) 93 BiPAP 50 09/21/17 16:02 94 High Flow Oxygen 50.0 70 09/21/17 12:34 36.7 102 24 155/74 (101) 94 BiPAP 50 102 09/21/17 12:14 95 BiPAP 15.0 50 Physical Exam General Appearance: WD/WN, no apparent distress Eyes: EOMI Neck: supple Respiratory/Chest: no respiratory distress Skin: + jaundice Laboratory Results Item Value Date Time Blood Culture - Preliminary Resulted 09/21/17 0817 Blood Gram Negative Bacilli Blood Culture - Preliminary Resulted 09/21/17 0810 Blood Gram Negative Bacilli Blood Culture - Final Complete 09/18/17 0847 Blood Escherichia Coli Blood Culture - Final Complete 09/17/17 0501 Blood Escherichia Coli Blood Culture - Preliminary Resulted 09/17/17 0405 Blood Escherichia Coli Last 24 Hours Test 09/21/17 14:59 09/21/17 15:58 09/21/17 20:23 09/22/17 05:49 Sodium Level 147 mmol/L 148 mmol/L Potassium Level 3.7 mmol/L 3.5 mmol/L Chloride Level 115 mmol/L 114 mmol/L Carbon Dioxide Level 19 mmol/L 20 mmol/L Anion Gap 13.0 mmol/L 14.0 mmol/L Blood Urea Nitrogen 112 mg/dl 127 mg/dl Creatinine 4.49 mg/dl 4.54 mg/dl Est Creatinine Clear Calc Drug Dose 14.4 ml/min 14.3 ml/min Estimated GFR () 13.9 13.7 Estimated GFR (Non- 12.0 11.9 BUN/Creatinine Ratio 24.9 27.9 Random Glucose 198 mg/dl 229 mg/dl Calcium Level 8.3 mg/dl 8.1 mg/dl Bedside Glucose 193 mg/dl 228 mg/dl White Blood Count 22.65 K/uL Red Blood Count 3.33 M/uL Hemoglobin 8.6 g/dL Hematocrit 23.8 % Mean Corpuscular Volume 71.5 fL Mean Corpuscular Hemoglobin 25.8 pg Mean Corpuscular Hemoglobin Concent 36.1 g/dl Platelet Count 130 K/uL Neutrophils (%) (Auto) 90.2 % Lymphocytes (%) (Auto) 4.6 % Monocytes (%) (Auto) 3.6 % Eosinophils (%) (Auto) 0.0 % Basophils (%) (Auto) 0.1 % Neutrophils # (Auto) 20.44 K/uL Lymphocytes # (Auto) 1.04 K/uL Monocytes # (Auto) 0.81 K/uL Eosinophils # (Auto) 0.00 K/uL Basophils # (Auto) 0.03 K/uL RDW Standard Deviation 37.2 fL RDW Coefficient of Variation 14.5 % Immature Granulocyte % (Auto) 1.5 % Immature Granulocyte # (Auto) 0.33 K/uL Nucleated RBC Absolute Count (auto) 0.07 K/uL Nucleated Red Blood Cells % 0.3 % Target Cells 1+ Total Bilirubin 12.0 mg/dl Direct Bilirubin 9.7 mg/dl Aspartate Amino Transf (AST/SGOT) 143 U/L Alanine Aminotransferase (ALT/SGPT) 128 U/L Alkaline Phosphatase 381 U/L Total Protein 6.5 gm/dl Albumin 1.3 gm/dl Random Vancomycin Level 12.4 mcg/ml Test 09/22/17 06:39 09/22/17 09:14 09/22/17 11:23 Bedside Glucose 269 mg/dl 248 mg/dl Prothrombin Time 12.5 SECONDS Prothromb Time International Ratio 1.2 Assessment and Plan (1) Severe sepsis with acute organ dysfunction Assessment & Plan: persistent bacteremia on appropriate abx. would suggest repeat blood cultures x 2, and repeat abd imaging to r/o collection. suggest echo. (2) Leukocytosis (3) UTI (urinary tract infection) (4) Hyperbilirubinemia Continued [facility] stay due to: abnormal vital signs, voiding difficulties Discharge planning: uncertain
--- NOTE | 2017-09-22 12:00 | Progress Note ---
Subjective Date of Service: Sep 22, 2017. Subjective Pt evaluation today including: conversation w/ patient, chart review pt feels well Problem List Medical Problems: (1) Acute renal failure Status: Acute (2) Hyperbilirubinemia Status: Acute (3) Leukocytosis Status: Acute (4) UTI (urinary tract infection) Status: Acute Objective Vital Signs Date Time Temp Pulse Resp B/P (MAP) Pulse Ox O2 Delivery O2 Flow Rate FiO2 09/22/17 11:19 90 35 146/74 (98) 96 High Flow Oxygen 15.0 50 09/22/17 08:02 37.2 83 27 160/70 (100) 94 High Flow Oxygen 15.0 50 09/22/17 08:00 High Flow Oxygen 15.0 50 09/22/17 04:00 High Flow Oxygen 15.0 50 09/22/17 03:35 36.8 103 18 145/67 (93) 100 High Flow Oxygen 15.0 50 09/21/17 23:59 High Flow Oxygen 15.0 50 09/21/17 23:04 37.3 89 18 130/70 (90) 92 High Flow Oxygen 15.0 50 09/21/17 21:51 153/75 (101) 156/78 (104) 169/99 (122) 09/21/17 20:00 High Flow Oxygen 15.0 50 09/21/17 18:50 36.5 93 22 165/75 (105) 93 High Flow Oxygen 50 09/21/17 17:00 High Flow Oxygen 15.0 50 09/21/17 16:33 36.9 98 22 148/73 (98) 93 BiPAP 50 09/21/17 16:02 94 High Flow Oxygen 50.0 70 09/21/17 12:34 36.7 102 24 155/74 (101) 94 BiPAP 50 102 09/21/17 12:14 95 BiPAP 15.0 50 Laboratory Results Last 24 Hours Test 09/21/17 14:59 09/21/17 15:58 09/21/17 20:23 09/22/17 05:49 Sodium Level 147 mmol/L 148 mmol/L Potassium Level 3.7 mmol/L 3.5 mmol/L Chloride Level 115 mmol/L 114 mmol/L Carbon Dioxide Level 19 mmol/L 20 mmol/L Anion Gap 13.0 mmol/L 14.0 mmol/L Blood Urea Nitrogen 112 mg/dl 127 mg/dl Creatinine 4.49 mg/dl 4.54 mg/dl Est Creatinine Clear Calc Drug Dose 14.4 ml/min 14.3 ml/min Estimated GFR () 13.9 13.7 Estimated GFR (Non- 12.0 11.9 BUN/Creatinine Ratio 24.9 27.9 Random Glucose 198 mg/dl 229 mg/dl Calcium Level 8.3 mg/dl 8.1 mg/dl Bedside Glucose 193 mg/dl 228 mg/dl White Blood Count 22.65 K/uL Red Blood Count 3.33 M/uL Hemoglobin 8.6 g/dL Hematocrit 23.8 % Mean Corpuscular Volume 71.5 fL Mean Corpuscular Hemoglobin 25.8 pg Mean Corpuscular Hemoglobin Concent 36.1 g/dl Platelet Count 130 K/uL Neutrophils (%) (Auto) 90.2 % Lymphocytes (%) (Auto) 4.6 % Monocytes (%) (Auto) 3.6 % Eosinophils (%) (Auto) 0.0 % Basophils (%) (Auto) 0.1 % Neutrophils # (Auto) 20.44 K/uL Lymphocytes # (Auto) 1.04 K/uL Monocytes # (Auto) 0.81 K/uL Eosinophils # (Auto) 0.00 K/uL Basophils # (Auto) 0.03 K/uL RDW Standard Deviation 37.2 fL RDW Coefficient of Variation 14.5 % Immature Granulocyte % (Auto) 1.5 % Immature Granulocyte # (Auto) 0.33 K/uL Nucleated RBC Absolute Count (auto) 0.07 K/uL Nucleated Red Blood Cells % 0.3 % Target Cells 1+ Total Bilirubin 12.0 mg/dl Direct Bilirubin 9.7 mg/dl Aspartate Amino Transf (AST/SGOT) 143 U/L Alanine Aminotransferase (ALT/SGPT) 128 U/L Alkaline Phosphatase 381 U/L Total Protein 6.5 gm/dl Albumin 1.3 gm/dl Random Vancomycin Level 12.4 mcg/ml Test 09/22/17 06:39 09/22/17 09:14 09/22/17 11:23 Bedside Glucose 269 mg/dl 248 mg/dl Prothrombin Time 12.5 SECONDS Prothromb Time International Ratio 1.2 Assessment and Plan bone scan pending not clear pt could tolerate casodex w liver issues Needs to f/u for bx ZEYAD and or hormonal therapy empirically Continued [facility] stay due to: abnormal vital signs, voiding difficulties Discharge planning: uncertain
--- NOTE | 2017-09-22 14:48 | DIAGNOSTIC IMAGING REPORT ---
BONE SCAN WHOLE BODY CLINICAL HISTORY: Prostate mass, elevated PSA. Prostate carcinoma. COMPARISON STUDY: CT scan dated 10-03 FINDINGS: The patient was injected with 25.8 mCi of technetium 99 M MDP. Three-hour delayed whole body images were acquired. There is slight heterogeneous activity within the pelvis including the ischio pubic rami, right anterior superior iliac spine, and right SI joint region. There is no corresponding blastic disease on the recent CT scan. I suspect these findings are secondary to a combination of arthritic disease, an overlying activity from the patient's Hamm catheter in bladder. If further evaluation is deemed necessary, an MRI of the pelvis with reconstructed the test of choice. IMPRESSION: 1. Nonspecific heterogeneous activity within the bony pelvisi. These areas are not felt to be of high suspicion for metastatic disease. The remainder of the skeletal uptake is unremarkable. Electronically signed by: Anthony Sanchez M.D. 09/22/2017 2:47 PM Dictated Date/Time: 09/22/2017 2:36 PM
--- NOTE | 2017-09-22 15:28 | Progress Note ---
Subjective Date of Service: Sep 22, 2017. Subjective Pt evaluation today including: conversation w/ patient, physical exam, lab review, review of studies, review of inpatient medication list Pain: no pain PO Intake: tolerating clears Voiding: vega catheter in place patient breathing more comfortably today reviewed labs, Cr stable, LFT stable diuresed well yesterday appreciate Dr. Mccall recommendations, going to repeat cultures, check echo and CT chest/abd/pelvis Problem List Medical Problems: (1) Acute renal failure Status: Acute (2) Hyperbilirubinemia Status: Acute (3) Leukocytosis Status: Acute (4) UTI (urinary tract infection) Status: Acute Review of Systems Constitutional: + weakness, + fatigue Respiratory: + cough, + shortness of breath All Other Systems: Reviewed and Negative Medications Current Inpatient Medications Medications (Trade) Dose Ordered Sig/Candelaria Route Start Time Stop Time Status Last Admin Dose Admin Aspirin (Ecotrin Tab) 81 mg QAM PO 09/17/17 13:00 10/17/17 12:59 09/22/17 08:34 81 MG Al Hydrox/Mg Hydrox/Simethicone (Maalox Max Susp) 15 ml Q4H PRN PO 09/17/17 08:30 10/17/17 08:29 Lidocaine (Lidoderm Patch 5%) 1 patch QAM TD 09/18/17 09:00 10/18/17 08:59 09/20/17 09:46 1 PATCH Miscellaneous (Remove Lidoderm Patch) 1 ea DAILY@21 N/A 09/17/17 21:00 10/17/17 20:59 09/20/17 20:15 1 EA Metoprolol Tartrate (Lopressor Tab) 25 mg BID PO 09/18/17 21:00 10/18/17 20:59 09/22/17 08:34 25 MG Amlodipine Besylate (Norvasc Tab) 10 mg QAM PO 09/19/17 09:00 10/19/17 08:59 09/22/17 08:34 10 MG Miscellaneous Information (Consult) 1 ea UD PRN N/A 09/21/17 03:15 10/21/17 03:14 Methylprednisolone Sodium Succinate 40 mg/Syringe 0.64 ml @ 1.5 mls/min Q12H IV 09/21/17 04:00 10/21/17 03:59 09/22/17 03:56 1.5 MLS/MIN Guaifenesin (Organidin Nr Tab) 200 mg Q4H PO 09/21/17 04:00 10/21/17 03:59 09/22/17 12:28 200 MG Piperacillin Sod/ Tazobactam Sod 4.5 gm/Dextrose 120 ml @ 30 mls/hr Q12H IV 09/21/17 14:00 09/28/17 13:59 09/22/17 14:42 30 MLS/HR Tamsulosin HCl (Flomax Cap) 0.4 mg HS PO 09/21/17 21:00 10/21/17 20:59 09/21/17 20:36 0.4 MG Objective Vital Signs Date Time Temp Pulse Resp B/P (MAP) Pulse Ox O2 Delivery O2 Flow Rate FiO2 09/22/17 12:00 High Flow Oxygen 15.0 50 09/22/17 11:19 90 35 146/74 (98) 96 High Flow Oxygen 15.0 50 09/22/17 08:02 37.2 83 27 160/70 (100) 94 High Flow Oxygen 15.0 50 09/22/17 08:00 High Flow Oxygen 15.0 50 09/22/17 04:00 High Flow Oxygen 15.0 50 09/22/17 03:35 36.8 103 18 145/67 (93) 100 High Flow Oxygen 15.0 50 09/21/17 23:59 High Flow Oxygen 15.0 50 09/21/17 23:04 37.3 89 18 130/70 (90) 92 High Flow Oxygen 15.0 50 09/21/17 21:51 153/75 (101) 156/78 (104) 169/99 (122) 09/21/17 20:00 High Flow Oxygen 15.0 50 09/21/17 18:50 36.5 93 22 165/75 (105) 93 High Flow Oxygen 50 09/21/17 17:00 High Flow Oxygen 15.0 50 09/21/17 16:33 36.9 98 22 148/73 (98) 93 BiPAP 50 09/21/17 16:02 94 High Flow Oxygen 50.0 70 Physical Exam General Appearance: WD/WN, no apparent distress Eyes: EOMI, + abnormal sclerae exam (icterus) ENT: normal ENT inspection, hearing grossly normal, pharynx normal Neck: supple, no adenopathy, no JVD, trachea midline Respiratory/Chest: chest non-tender, no respiratory distress, no accessory muscle use, + decreased breath sounds, + rhonchi Cardiovascular: regular rate, rhythm, no edema, no gallop, no JVD, no murmur Abdomen: normal bowel sounds, non tender, soft, no organomegaly Extremities: normal range of motion, non-tender, normal inspection, no pedal edema, no calf tenderness, pelvis stable 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: gear room keeper II-XII nml as tested, no motor/sensory deficits, alert, normal mood/affect, oriented x 3 Skin: + jaundice Laboratory Results Last 24 Hours Test 09/21/17 15:58 09/21/17 20:23 09/22/17 05:49 09/22/17 06:39 Bedside Glucose 193 mg/dl 228 mg/dl 269 mg/dl White Blood Count 22.65 K/uL Red Blood Count 3.33 M/uL Hemoglobin 8.6 g/dL Hematocrit 23.8 % Mean Corpuscular Volume 71.5 fL Mean Corpuscular Hemoglobin 25.8 pg Mean Corpuscular Hemoglobin Concent 36.1 g/dl Platelet Count 130 K/uL Neutrophils (%) (Auto) 90.2 % Lymphocytes (%) (Auto) 4.6 % Monocytes (%) (Auto) 3.6 % Eosinophils (%) (Auto) 0.0 % Basophils (%) (Auto) 0.1 % Neutrophils # (Auto) 20.44 K/uL Lymphocytes # (Auto) 1.04 K/uL Monocytes # (Auto) 0.81 K/uL Eosinophils # (Auto) 0.00 K/uL Basophils # (Auto) 0.03 K/uL RDW Standard Deviation 37.2 fL RDW Coefficient of Variation 14.5 % Immature Granulocyte % (Auto) 1.5 % Immature Granulocyte # (Auto) 0.33 K/uL Nucleated RBC Absolute Count (auto) 0.07 K/uL Nucleated Red Blood Cells % 0.3 % Target Cells 1+ Sodium Level 148 mmol/L Potassium Level 3.5 mmol/L Chloride Level 114 mmol/L Carbon Dioxide Level 20 mmol/L Anion Gap 14.0 mmol/L Blood Urea Nitrogen 127 mg/dl Creatinine 4.54 mg/dl Est Creatinine Clear Calc Drug Dose 14.3 ml/min Estimated GFR () 13.7 Estimated GFR (Non- 11.9 BUN/Creatinine Ratio 27.9 Random Glucose 229 mg/dl Calcium Level 8.1 mg/dl Total Bilirubin 12.0 mg/dl Direct Bilirubin 9.7 mg/dl Aspartate Amino Transf (AST/SGOT) 143 U/L Alanine Aminotransferase (ALT/SGPT) 128 U/L Alkaline Phosphatase 381 U/L Total Protein 6.5 gm/dl Albumin 1.3 gm/dl Random Vancomycin Level 12.4 mcg/ml Test 09/22/17 09:14 09/22/17 11:23 Prothrombin Time 12.5 SECONDS Prothromb Time International Ratio 1.2 Bedside Glucose 248 mg/dl Assessment and Plan UROSEPSIS with severe acute renal failure and metabolic acidosis in a 72 yo male with history of hypertension, BPH. - UTI with severe sepsis: blood cultures and urine culture grew pansensitive E coli continue Zosyn IV afebrile, HR < 100 now, WBC quite high at 22k but trending down overall repeat blood cultures still growing GNR despite appropriate antibiotics per ID, will repeat cultures, check echo, check CT chest/abd/pelvis to look for abscess, septic emboli Urology recommending 4-6 weeks total antibiotics due to suspected prostatitis Acute hypoxic respiratory failure tolerating high flow nasal canula, breathing is better today, no distress can use BIPAP at night responded well to the Lasix yesterday check CT chest tomorrow as part of the work up for bacteremia - Metabolic acidosis with acute respiratory alkalosis due to severe sepsis, renal failure, anion gap still 14 today, BiCarb is 20 should correct as renal function improves and infection treated - SONY: likely ATN, slowly improving Cr is 4.5 today after Lasix yesterday diuresed quite well nephrology following - Hepatitis: liver enzymes remain elevated although Bili down slightly GI following serology panel sent out, HIV, Hepatitis negative MRCP essentially normal, liver US normal, no evidence of portal vein thrombosis may be a result of sepsis surgery signed off may require liver biopsy and transfer if he does not improve INR 1.2 so liver still functioning at this point Thrombocytopenia: 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, stop heparin platelets improved to 130 from 77 HTN: Resumed metoprolol and amlodipine BPH and elevated PSA, h/o prostate nodule appreciate urology consultation, needs biopsy ZEYAD needs 4-6 weeks of antibiotics leave vega in place bone scan today showed no suspicious lesions that would suggest metastatic disease Patient is LEVEL 5 CODE STATUS DVT: SCD GI PROTONIX Clear liquid diet. discussed advancing today, he refused Continued [facility] stay due to: abnormal vital signs, voiding difficulties Discharge planning: uncertain
--- NOTE | 2017-09-22 17:21 | ECHOCARDIOGRAM REPORT ---
*NOTICE TO RECEIVING [employer]Y This information is strictly Confidential and protected under [place] law. [place] law prohibits you from making any further disclosure of this information unless further disclosure is expressly permitted by the written consent of the person to whom it pertains or is authorized by law. A general authorization for the release of medical or other information is not sufficient for this purpose. Hospital accepts no responsibility if the information is made available to any other person, INCLUDING THE PATIENT. Interpretation Summary * Name: DARRELL FERRARA [id number] Study Date: 09/22/2017 03:42 PM BP: 146/74 mmHg * Patient Location: [facility] HR: 90 * : 1945 (M/d/yyyy) Gender: Male Height: 69 in * Age: 72 yrs Ethnicity: [place] Weight: 177 lb * Ordering Physician: Julian Funez * Performed By: Maame Sherman RCS * * Reason For Study: Endocarditis * BSA: 2.0 m2 * -- Conclusions -- * 1. Normal LV size. Normal LV wall thickness. * 2. Normal LV systolic function. LVEF 60-65%. No regional wall motion abnormalities. Grade 1 diastolic dysfunction. * 3. Normal RV size and function. * 4. Mild aortic insufficiency * 5. Mild to moderate pulmonic insufficiency. * 6. Mild tricuspid regurgitation. Moderate pulmonary hypertension. Estimated PASP 50-55 mmHg. Normal estimated CVP. * 7. No clear vegetations or signs of endocarditis noted. * 8. No prior studies for comparison. Procedure Details * A complete two-dimensional transthoracic echocardiogram was performed (2D, M-mode, Doppler and color flow Doppler). Left Ventricle * The left ventricle is grossly normal size. * There is normal left ventricular wall thickness. * Ejection Fraction = 60-65%. * No regional wall motion abnormalities noted. Right Ventricle * The right ventricle is grossly normal size. * The right ventricular systolic function is normal as assessed by tricuspid annular plane systolic excursion (TAPSE) (normal >1.5 cm). Atria * Borderline left atrial enlargement. * Right atrial size is normal. * No ASD detected; PFO is not assessed. Mitral Valve * The mitral valve is grossly normal. * There is no vegetation seen on the mitral valve. * There is no mitral valve stenosis. * Significant mitral regurgitation is absent. Tricuspid Valve * The tricuspid valve is not well visualized, but is grossly normal. * There is no tricuspid valve vegetation. * There is mild tricuspid regurgitation. * Right ventricular systolic pressure is elevated at 50-60mmHg. Aortic Valve * The aortic valve opens well. * The aortic valve is trileaflet. * There is no aortic valvular vegetation. * No hemodynamically significant valvular aortic stenosis. * Mild aortic regurgitation. Pulmonic Valve * The pulmonary valve is inadequately visualized, but the Doppler data is adequate for interpretation. * Mild to moderate pulmonic valvular regurgitation. Great Vessels * The aortic root and proximal ascending aorta are normal sized. Pericardium/Pleural * There is no pericardial effusion. Great Vessels * Normal inferior vena cava size and collapsability with sniff indicates a normal right atrial pressure of 3 mmHg Left Ventricular Diastolic Function * Grade I diastolic dysfunction, (abnormal relaxation pattern). MMode 2D Measurements and Calculations IVSd 1.0 cm IVSs 1.4 cm LVIDd 3.5 cm LVIDs 2.2 cm LVPWd 1.0 cm LVPWs 1.3 cm IVS/LVPW 1.0 FS 35.5 % EDV(Teich) 50.4 ml ESV(Teich) 17.1 ml EF(Teich) 66.0 % EDV(cubed) 42.3 ml ESV(cubed) 11.4 ml EF(cubed) 73.1 % % IVS thick 33.5 % % LVPW thick 34.1 % LV mass(C)d 104.4 grams LV mass(C)dI 53.2 grams/m\S\2 LV mass(C)s 92.4 grams LV mass(C)sI 47.1 grams/m\S\2 SV(Teich) 33.2 ml SI(Teich) 16.9 ml/m\S\2 SV(cubed) 31.0 ml SI(cubed) 15.8 ml/m\S\2 Ao root diam 3.7 cm Ao root area 10.5 cm\S\2 ACS 1.4 cm LA dimension 3.6 cm asc Aorta Diam 2.6 cm LA/Ao 0.98 EDV(MOD-sp4) 86.0 ml ESV(MOD-sp4) 40.0 ml EF(MOD-sp4) 53.5 % EDV(MOD-sp2) 122.0 ml ESV(MOD-sp2) 51.0 ml EF(MOD-sp2) 58.2 % SV(MOD-sp4) 46.0 ml SI(MOD-sp4) 23.5 ml/m\S\2 SV(MOD-sp2) 71.0 ml SI(MOD-sp2) 36.2 ml/m\S\2 Doppler Measurements and Calculations MV E max patrica 64.7 cm/sec MV A max patrica 86.8 cm/sec MV E/A 0.75 MV P1/2t max patrica 86.8 cm/sec MV P1/2t 70.0 msec MVA(P1/2t) 3.1 cm\S\2 MV dec slope 363.4 cm/sec\S\2 MV dec time 0.32 sec Ao V2 max 162.5 cm/sec Ao max PG 10.6 mmHg Ao max PG (full) 2.4 mmHg LV V1 max PG 8.2 mmHg LV V1 max 142.9 cm/sec PA V2 max 131.9 cm/sec PA max PG 7.0 mmHg PI max patrica 209.5 cm/sec PI max PG 17.7 mmHg PI dec slope 183.0 cm/sec\S\2 PI P1/2t 335.2 msec TR max patrica 321.2 cm/sec
[2017-09-22] MEDS: TAMSULOSIN HCL 0.4 MG CAP PO SCH (20:04)
[2017-09-22 22:30] LABS: ANA SCREEN TC 249X NEGATIVE (NEGATIVE); HERPES SIMPLEX AB IGG-1 < 0.90 INDEX (< 0.90); PARVOVIRUS IgM INDEX 0.1 (<0.9)
[2017-09-23] VITALS (9 sets, daily range): BP systolic 128–153; BP diastolic 66–85; PULSE 73–94; TEMP 36.4–37.3; O2SAT 94–98
[2017-09-23] MEDS: PIPERACILL/TAZOBAC IV 4.5 GM in DEXTROSE 5% 100ML IV SCH ×2 (01:35→12:59)
[2017-09-23] MEDS: GUAIFENESIN 200 MG TAB PO SCH ×5 (03:22→20:54)
[2017-09-23] MEDS: METHYLPREDNISOLONE IV 40 MG in SYRINGE 0 ML IV SCH ×2 (03:22→15:09)
[2017-09-23 05:43] LABS: INR 1.2 (0.9-1.1)
[2017-09-23 06:29] LABS: ALBUMIN 1.4 gm/dl (3.4-5.0); CALCIUM 7.7 mg/dl (8.5-10.1); CREATININE 4.53 mg/dl (0.60-1.40); POTASSIUM 3.5 mmol/L (3.5-5.1); TOTAL PROTEIN 6.6 gm/dl (6.4-8.2)
[2017-09-23 06:42] LABS: HEMATOCRIT 23.6 % (42-52); HEMOGLOBIN 8.5 g/dL (14.0-18.0)
[2017-09-23 07:46] LABS: NUCLEATED RED BLOOD CELL ABS 0.05 K/uL (0-0); PLATELET COUNT 215 K/uL (130-400); RED CELL DISTRIBUTION WIDTH CV 14.6 % (11.5-14.5); RED CELL DISTRIBUTION WIDTH SD 37.5 fL (36.4-46.3)
[2017-09-23 08:09] LABS: BASO % 0.1 %; BASO ABS # 0.02 K/uL (0-0.2); IG# 0.24 K/uL (0.00-0.02); LYMPH % 5.1 %; LYMPH ABS # 1.07 K/uL (1.2-3.4); MONO % 3.3 %; MONO ABS # 0.69 K/uL (0.11-0.59); NEUT % 90.4 %; NEUT ABS # 18.98 K/uL (1.4-6.5)
--- NOTE | 2017-09-23 08:09 | Progress Note ---
Subjective Date of Service: Sep 23, 2017. Subjective Pt evaluation today including: conversation w/ patient, chart review, lab review Voiding: vega catheter in place (patent, draining yellow urine ) 72 yo male with urosepsis, elevated PSA, BPH with UR. Pt denies pain this morning. Hematuria has resolved. He reports his SOB is improving. Bone scan yesterday reviewed with the pt today. No definitive evidence for metastatic bone disease. Problem List Medical Problems: (1) Acute renal failure Status: Acute (2) Hyperbilirubinemia Status: Acute (3) Leukocytosis Status: Acute (4) UTI (urinary tract infection) Status: Acute Review of Systems Constitutional: No fever, No chills Respiratory: No shortness of breath Cardiac: No chest pain Abdomen: No pain, No nausea, No vomiting Male : No hematuria Heme: No abnormal bleeding/bruising Objective Vital Signs Date Time Temp Pulse Resp B/P (MAP) Pulse Ox O2 Delivery O2 Flow Rate FiO2 09/23/17 07:03 36.9 93 30 147/73 (97) 98 High Flow Oxygen 45 09/23/17 03:22 98 High Flow Oxygen 45.0 45 09/23/17 03:17 37.3 84 18 152/69 (96) 94 High Flow Oxygen 09/22/17 23:26 97 High Flow Oxygen 45.0 45 09/22/17 23:11 36.8 77 18 145/78 (100) 97 High Flow Oxygen 45.0 50 94 155/77 (103) 100 172/90 (117) 09/22/17 20:05 98 High Flow Oxygen 45 09/22/17 19:20 36.6 89 20 148/84 (105) 94 High Flow Oxygen 09/22/17 16:00 High Flow Oxygen 15.0 50 09/22/17 15:20 37.2 97 20 143/73 (96) 97 High Flow Oxygen 50 09/22/17 12:00 High Flow Oxygen 15.0 50 09/22/17 11:19 90 35 146/74 (98) 96 High Flow Oxygen 15.0 50 09/22/17 08:02 37.2 83 27 160/70 (100) 94 High Flow Oxygen 15.0 50 Physical Exam General Appearance: no apparent distress Eyes: normal inspection ENT: hearing grossly normal Neck: no JVD Respiratory/Chest: no respiratory distress, no accessory muscle use Cardiovascular: no JVD Extremities: normal inspection 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: alert, normal mood/affect, oriented x 3 Skin: normal color Laboratory Results Last 24 Hours Test 09/22/17 09:14 09/22/17 11:23 09/22/17 16:19 09/22/17 20:30 Prothrombin Time 12.5 SECONDS Prothromb Time International Ratio 1.2 Bedside Glucose 248 mg/dl 263 mg/dl 265 mg/dl Test 09/23/17 05:26 09/23/17 06:04 09/23/17 06:32 White Blood Count K/uL 21.00 K/uL Red Blood Count M/uL 3.31 M/uL Hemoglobin g/dL 8.5 g/dL Hematocrit % 23.6 % Mean Corpuscular Volume fL Mean Corpuscular Hemoglobin pg 26.0 pg Mean Corpuscular Hemoglobin Concent g/dl 36.0 g/dl Platelet Count K/uL 215 K/uL Neutrophils (%) (Auto) % Lymphocytes (%) (Auto) % Monocytes (%) (Auto) % Eosinophils (%) (Auto) % Basophils (%) (Auto) % Neutrophils # (Auto) K/uL Lymphocytes # (Auto) K/uL Monocytes # (Auto) K/uL Eosinophils # (Auto) K/uL Basophils # (Auto) K/uL RDW Standard Deviation fL 37.5 fL RDW Coefficient of Variation % 14.6 % Immature Granulocyte % (Auto) % Immature Granulocyte # (Auto) K/uL Platelet Estimate Giant Platelets Polychromasia Hypochromasia Target Cells Schistocytes Prothrombin Time 12.9 SECONDS Prothromb Time International Ratio 1.2 Sodium Level 145 mmol/L Potassium Level 3.5 mmol/L Chloride Level 113 mmol/L Carbon Dioxide Level 19 mmol/L Anion Gap 13.0 mmol/L Blood Urea Nitrogen 135 mg/dl Creatinine 4.53 mg/dl Est Creatinine Clear Calc Drug Dose 14.3 ml/min Estimated GFR () 13.8 Estimated GFR (Non- 11.9 BUN/Creatinine Ratio 29.9 Random Glucose 197 mg/dl Calcium Level 7.7 mg/dl Total Bilirubin 8.0 mg/dl Direct Bilirubin 6.5 mg/dl Aspartate Amino Transf (AST/SGOT) 229 U/L Alanine Aminotransferase (ALT/SGPT) 258 U/L Alkaline Phosphatase 424 U/L Total Protein 6.6 gm/dl Albumin 1.4 gm/dl Nucleated RBC Absolute Count (auto) 0.05 K/uL Nucleated Red Blood Cells % 0.2 % Bedside Glucose 207 mg/dl Assessment and Plan A/P: Urosepsis, acute prostatitis, BPH with UR, gross hematuria, elevated PSA AFVSS. Suspect acute prostatitis as the source of urosepsis. Recommend abx for 4-6 weeks. Will continue vega catheter for now. Will plan for outpatient TOV in 2-4 weeks. Continue Flomax. No evidence for orthostasis. Discussed bone scan results and elevated PSA with the pt today. Previously canceled appts for prostate bx in the fall. He reports he [facility] at that [facility], but now wants to proceed with biopsy. Will need to wait until prostatitis has been adequately treated prior to performing an outpatient prostate biopsy. Will plan to have the pt f/u with Dr. Prabhakar as an outpatient next week to discuss biopsy and further evaluation. Would also recommend he have an outpatient cysto to evaluate for gross hematuria. No further management at this time. Will arrange for outpatient f/u with Dr. Prabhakar. Recall PRN issues. Thanks for allowing us to participate in this pt 's care. Continued [facility] stay due to: abnormal vital signs, voiding difficulties Discharge planning: uncertain
[2017-09-23] MEDS: METOPROLOL TARTRATE 25 MG TAB PO SCH ×2 (08:15→20:55)
[2017-09-23] MEDS: AMLODIPINE BESYLATE 5 MG TAB PO SCH (08:15)
[2017-09-23] MEDS: ASPIRIN 81 MG ECTAB PO SCH (08:15)
[2017-09-23] MEDS: LIDODERM (LIDOCAINE) PATCH 5% TD SCH (08:16)
[2017-09-23 09:32] LABS: MEAN CELL VOLUME 71.5 fL (80-100)
--- NOTE | 2017-09-23 09:48 | DIAGNOSTIC IMAGING REPORT ---
(CHEST) THORAX WITHOUT CT DOSE: 685.46 mGy.cm CLINICAL HISTORY: 72 years-old Male with respiratory failure, persistent bacteremia. Acute respiratory failure TECHNIQUE: Multiaxial CT images of the chest were performed without contrast. A dose lowering technique was utilized adhering to the principles of ALARA. COMPARISON: CT abdomen and pelvis of same day, chest radiograph 09/21/2017, 09/19/2017 and 09/17/2017. FINDINGS: Thyroid is homogeneous. No pathologically enlarged lymph nodes by CT size criteria. Nonenlarged bilateral axillary lymph nodes. The heart is upper limits of normal in size without pericardial effusion. Mild atherosclerosis of the aorta without aneurysm. The opacified pulmonary arterial tree is unremarkable. There is a trace right pleural effusion. No pneumothorax. Multifocal multilobar diffuse groundglass opacities are present within the lungs bilaterally with relative sparing of the lung apices. Additionally, intralobular septal thickening is noted with reticular opacities within these distributions. Minimal dependent consolidation of the lung bases suggests atelectasis. No suspicious pulmonary nodules are identified. The central airways are patent. No acute abnormality of the imaged upper abdomen. Nonspecific bilateral perinephric stranding. Considerable bilateral gynecomastia. Mild body wall edema. Bones of the chest appear intact. No suspicious lytic or blastic bony lesions. IMPRESSION: 1. Multifocal multilobar groundglass opacities are present within the lungs bilaterally with associated intralobular septal thickening and reticular opacities forming a crazy paving pattern. Differential considerations would include but are not limited to pulmonary edema, acute respiratory distress syndrome, atypical pneumonia, or drug induced pneumonitis among other etiologies. 2. Trace right pleural effusion. Electronically signed by: Jamal Whitlock M.D. 09/23/2017 9:47 AM Dictated Date/Time: 09/23/2017 9:35 AM
--- NOTE | 2017-09-23 09:49 | Nephrology Progress Note ---
Nephrology Progress Note Date of Service Sep 23, 2017. Chief Complaint SONY Subjective Mr. Emmanuel was seen & examined in the ICU this morning. He is breathing comfortably on high flow O2. He currently denies angina. Mr. Emmanule reports that he completed a CT scan this am. Review of Systems Constitutional: No fever Cardiovascular: No chest pain Respiratory: No dyspnea at rest Abdomen: No pain, No nausea, No vomiting Extremities: No leg edema A complete review of systems was performed. Pertinent positives are noted above. All other systems are negative. Vital Signs Last 8 Hrs Date Time Temp Pulse Resp B/P (MAP) Pulse Ox O2 Delivery O2 Flow Rate FiO2 09/23/17 08:00 High Flow Oxygen 45.0 45 09/23/17 08:00 High Flow Oxygen 45.0 45 09/23/17 07:03 36.9 93 30 147/73 (97) 98 High Flow Oxygen 45 09/23/17 03:22 98 High Flow Oxygen 45.0 45 09/23/17 03:17 37.3 84 18 152/69 (96) 94 High Flow Oxygen Last Recorded Weight Weight (Kilograms): 80.400 Physical Exam General Appearance: no apparent distress Head: normocephalic, atraumatic Eyes: PERRL, EOMI Neck: no adenopathy Respiratory/Chest: lungs clear Cardiovascular: regular rate, rhythm Abdomen/GI: normal bowel sounds, non tender, soft Genitourinary - Male: + pertinent finding (vega catheter draining dark yellow urine) Extremities/Musculoskelatal: no calf tenderness, no pedal edema Neurologic/Psych: alert, oriented x 3 Social History Smokeless Tobacco Use: No Alcohol Use: none Drug Use: none 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1, Monocytes (%) (Auto) 3.3, Eosinophils (%) (Auto) 0.0 , Basophils (%) (Auto) 0.1, Neutrophils # (Auto) 18.98, Lymphocytes # (Auto) 1.07, Monocytes # (Auto) 0.69, Eosinophils # (Auto) 0.00, Basophils # (Auto) 0.02 09/23/17 05:26 Test 09/22/17 11:23 09/22/17 16:19 09/22/17 20:30 09/23/17 05:26 Bedside Glucose 248 mg/dl (70-99) 263 mg/dl (70-99) 265 mg/dl (70-99) White Blood Count K/uL (4.8-10.8) Red Blood Count M/uL (4.7-6.1) Hemoglobin g/dL (14.0-18.0) Hematocrit % (42-52) Mean Corpuscular Volume fL (80-100) Mean Corpuscular Hemoglobin pg (25-34) Mean Corpuscular Hemoglobin Concent g/dl (32-36) Platelet Count K/uL (130-400) Neutrophils (%) (Auto) % Lymphocytes (%) (Auto) % Monocytes (%) (Auto) % Eosinophils (%) (Auto) % Basophils (%) (Auto) % Neutrophils # (Auto) K/uL (1.4-6.5) Lymphocytes # (Auto) K/uL (1.2-3.4) Monocytes # (Auto) K/uL (0.11-0.59) Eosinophils # (Auto) K/uL (0-0.5) Basophils # (Auto) K/uL (0-0.2) RDW Standard Deviation fL (36.4-46.3) RDW Coefficient of Variation % (11.5-14.5) Immature Granulocyte % (Auto) % Immature Granulocyte # (Auto) K/uL (0.00-0.02) Platelet Estimate Giant Platelets Polychromasia Hypochromasia Target Cells Schistocytes Prothrombin Time 12.9 SECONDS (9.0-12.0) Prothromb Time International Ratio 1.2 (0.9-1.1) Anion Gap 13.0 mmol/L (3-11) Est Creatinine Clear Calc Drug Dose 14.3 ml/min Estimated GFR () 13.8 Estimated GFR (Non- 11.9 BUN/Creatinine Ratio 29.9 (10-20) Calcium Level 7.7 mg/dl (8.5-10.1) Total Bilirubin 8.0 mg/dl (0.2-1) Direct Bilirubin 6.5 mg/dl (0-0.2) Aspartate Amino Transf (AST/SGOT) 229 U/L (15-37) Alanine Aminotransferase (ALT/SGPT) 258 U/L (12-78) Alkaline Phosphatase 424 U/L (45-117) Total Protein 6.6 gm/dl (6.4-8.2) Albumin 1.4 gm/dl (3.4-5.0) Test 09/23/17 06:04 09/23/17 06:32 White Blood Count 21.00 K/uL (4.8-10.8) Red Blood Count 3.31 M/uL (4.7-6.1) Hemoglobin 8.5 g/dL (14.0-18.0) Hematocrit 23.6 % (42-52) Mean Corpuscular Volume 71.5 fL (80-100) Mean Corpuscular Hemoglobin 26.0 pg (25-34) Mean Corpuscular Hemoglobin Concent 36.0 g/dl (32-36) Platelet Count 215 K/uL (130-400) Neutrophils (%) (Auto) 90.4 % Lymphocytes (%) (Auto) 5.1 % Monocytes (%) (Auto) 3.3 % Eosinophils (%) (Auto) 0.0 % Basophils (%) (Auto) 0.1 % Neutrophils # (Auto) 18.98 K/uL (1.4-6.5) Lymphocytes # (Auto) 1.07 K/uL (1.2-3.4) Monocytes # (Auto) 0.69 K/uL (0.11-0.59) Eosinophils # (Auto) 0.00 K/uL (0-0.5) Basophils # (Auto) 0.02 K/uL (0-0.2) RDW Standard Deviation 37.5 fL (36.4-46.3) RDW Coefficient of Variation 14.6 % (11.5-14.5) Immature Granulocyte % (Auto) 1.1 % Immature Granulocyte # (Auto) 0.24 K/uL (0.00-0.02) Nucleated RBC Absolute Count (auto) 0.05 K/uL (0-0) Nucleated Red Blood Cells % 0.2 % Hypochromasia PRESENT Microcytosis PRESENT Target Cells 1+ Bedside Glucose 207 mg/dl (70-99) Allergies Coded Allergies: No Known Allergies (Unverified , 09/17/17) Medications Current Inpatient Medications Medications (Trade) Dose Ordered Sig/Candelaria Route Start Time Stop Time Status Last Admin Dose Admin Aspirin (Ecotrin Tab) 81 mg QAM PO 09/17/17 13:00 10/17/17 12:59 09/23/17 08:15 81 MG Al Hydrox/Mg Hydrox/Simethicone (Maalox Max Susp) 15 ml Q4H PRN PO 09/17/17 08:30 10/17/17 08:29 Lidocaine (Lidoderm Patch 5%) 1 patch QAM TD 09/18/17 09:00 10/18/17 08:59 09/23/17 08:16 1 PATCH Miscellaneous (Remove Lidoderm Patch) 1 ea DAILY@21 N/A 09/17/17 21:00 10/17/17 20:59 09/22/17 20:04 1 EA Metoprolol Tartrate (Lopressor Tab) 25 mg BID PO 09/18/17 21:00 10/18/17 20:59 09/23/17 08:15 25 MG Amlodipine Besylate (Norvasc Tab) 10 mg QAM PO 09/19/17 09:00 10/19/17 08:59 09/23/17 08:15 10 MG Miscellaneous Information (Consult) 1 ea UD PRN N/A 09/21/17 03:15 10/21/17 03:14 Methylprednisolone Sodium Succinate 40 mg/Syringe 0.64 ml @ 1.5 mls/min Q12H IV 09/21/17 04:00 10/21/17 03:59 09/23/17 03:22 1.5 MLS/MIN Guaifenesin (Organidin Nr Tab) 200 mg Q4H PO 09/21/17 04:00 3/8/18 03:59 09/23/17 08:15 200 MG Piperacillin Sod/ Tazobactam Sod 4.5 gm/Dextrose 120 ml @ 30 mls/hr Q12H IV 09/21/17 14:00 09/28/17 13:59 09/23/17 01:35 30 MLS/HR Tamsulosin HCl (Flomax Cap) 0.4 mg HS PO 09/21/17 21:00 10/21/17 20:59 09/22/17 20:04 0.4 MG Impression (1) Acute renal failure (2) Hyperbilirubinemia (3) UTI (urinary tract infection) (4) Leukocytosis (5) Thrombocytopenia (6) Anemia (7) Gram-negative bacteremia Mr. Emmanuel is an inmate from [facility] admitted for evaluation of progressive symptoms of weakness, anorexia, nausea, abdominal discomfort and left hip pain. Clinical presentation consistent with severe sepsis. Blood and urine cultures have grown out dhaliwal sensitive E coli. Patient was treated with Zosyn. Medical history is notable for a BPH, urinary obstruction with chronic indwelling Vega as well as an elevated PSA. Initial evaluation is notable for SONY, hyperbilirubinemia (direct), hypoalbuminemia, thrombocytopenia, anemia and a marked leukocytosis. Peripheral smear was negative for hematologic malignancy or hemolytic anemia. Platelet count continues to fall. INR and PTT are slightly elevated. Fibrinogen is elevated which is not consistent with DIC and less consistent with chronic liver disease. 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 The kidneys are normal in appearance. There is no evidence of obstruction. Urine is turbid with gross hematuria. UA documented hematuria, proteinuria, pyuria. Urine and blood cultures are positive for pansensitive E. Coli. Liver is not cirrhotic appearing. RUQ US documented enlarged GB without obvious stone or obstruction. MRCP was negative Patient has had R hip pain. X-ray shows degenerative changes of the hip. No evidence of metastatic disease Recommendations SONY / ATN: -- Creatinine has stabilized at 4.5. Patient remains nonoliguric. Electrolyte balance is acceptable. Patient is developing progressive azotemia related to SONY and steroid therapy. Recommend tapering steroid therapy -- Volume status has improved. Hold diuretics today and monitor. 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 Heparin has been discontinued Elevated PSA/urinary obstruction: -- Vega to gravity -- Urology consultation reviewed. Patient had cancelled outpatient prostate biopsy. He is now being treated for prostatitis Elevated LFT's: -- LFT's continue to trend up. GI considering liver biopsy
--- NOTE | 2017-09-23 09:56 | DIAGNOSTIC IMAGING REPORT ---
CT SCAN OF THE ABDOMEN AND PELVIS WITHOUT CONTRAST CLINICAL HISTORY: Bacteremia, respiratory failure. Renal failure. Leukocytosis. Possible abscess. COMPARISON STUDY: September 17, 2017 TECHNIQUE: CT scan of the abdomen and pelvis was performed from the lung bases to the proximal femurs. Images are reviewed in the axial, sagittal, and coronal planes. IV contrast was not administered for this examination. A dose lowering technique was utilized adhering to the principles of ALARA. CT DOSE: FINDINGS: Lower chest: There are diffuse bilateral pulmonary airspace opacities. There are small bilateral pleural effusions. Liver: The unenhanced liver is normal in size, contour, and attenuation. There is no intrahepatic biliary ductal dilatation. Gallbladder: Unremarkable. Spleen: Normal in size and attenuation. Pancreas: The pancreatic head appears bulbous. It cannot be further characterized on this noncontrast study. It should be noted that no focal mass was visualized on the noncontrast MRCP performed to 418 Adrenal glands: Unremarkable. Kidneys: The unenhanced kidneys are normal in size without hydronephrosis. There is no contour deforming renal mass lesion. No renal calculi are identified. There is bilateral lateral perinephric stranding. Bowel: Evaluation of the bowel is limited given the lack of intravenous and oral contrast. There are no transition zone to indicate bowel obstruction. There is colonic diverticulosis. There are no findings to indicate acute diverticulitis. There is no evidence of acute appendicitis. Peritoneum: No free air is visualized. There is trace pelvic ascites. There is presacral edema. Vasculature: The abdominal aorta is normal in course and caliber. Adenopathy: None. Pelvic viscera: The prostate is mildly enlarged. There is an indwelling Hamm catheter. Skeletal structures: Advanced arthritic changes are present within the left hip. There is scattered sclerotic lesions within the left iliac bone, likely representing bone islands. There is mild body wall edema. IMPRESSION: 1. Examination limited due to the lack of intravenous and oral contrast 2. Diffuse bilateral pulmonary airspace opacities, possibly secondary to acute lung injury/ARDS 3. Small bilateral pleural effusions 4. Bulbous pancreatic head 5. No evidence of bowel obstruction. No evidence of free air 6. Minimal ascites. Mild diffuse mesenteric edema. 7. No evidence of acute appendicitis. Diverticulosis. No evidence of acute diverticulitis 8. No focal abscess identified Electronically signed by: Anthony Sanchez M.D. 09/23/2017 9:54 AM Dictated Date/Time: 09/23/2017 9:36 AM
--- NOTE | 2017-09-23 12:20 | Progress Note ---
Subjective Date of Service: Sep 23, 2017. Subjective Pt evaluation today including: conversation w/ patient, physical exam, lab review, review of studies, conversation w/ recruitment consultant, review of inpatient medication list Pain: denies pain PO Intake: tolerating diet Voiding: vega catheter in place patient resting comfortably in bed, went for CT this morning reviewed results, CT chest shows signs of ARDS, abdomen/pelvis without any signs of infection, limited by lack of contrast patient does not have any new complaints, breathing comfortably on high flow discussed case with Kaitlynnlorenzo Teran with GI, just watching LFT to improve appreciate notes from urology, nephrology, ID echo: normal EF, no vegetations to suggest endocarditis Problem List Medical Problems: (1) Acute renal failure Status: Acute (2) Hyperbilirubinemia Status: Acute (3) Leukocytosis Status: Acute (4) UTI (urinary tract infection) Status: Acute Review of Systems Constitutional: + weakness, + fatigue Respiratory: + cough, + shortness of breath Skin: + color change (yellow) All Other Systems: Reviewed and Negative Medications Current Inpatient Medications Medications (Trade) Dose Ordered Sig/Candelaria Route Start Time Stop Time Status Last Admin Dose Admin Aspirin (Ecotrin Tab) 81 mg QAM PO 09/17/17 13:00 10/17/17 12:59 09/23/17 08:15 81 MG Al Hydrox/Mg Hydrox/Simethicone (Maalox Max Susp) 15 ml Q4H PRN PO 09/17/17 08:30 10/17/17 08:29 Lidocaine (Lidoderm Patch 5%) 1 patch QAM TD 09/18/17 09:00 10/18/17 08:59 09/23/17 08:16 1 PATCH Miscellaneous (Remove Lidoderm Patch) 1 ea DAILY@21 N/A 09/17/17 21:00 10/17/17 20:59 09/22/17 20:04 1 EA Metoprolol Tartrate (Lopressor Tab) 25 mg BID PO 09/18/17 21:00 10/18/17 20:59 09/23/17 08:15 25 MG Amlodipine Besylate (Norvasc Tab) 10 mg QAM PO 09/19/17 09:00 10/19/17 08:59 09/23/17 08:15 10 MG Miscellaneous Information (Consult) 1 ea UD PRN N/A 09/21/17 03:15 10/21/17 03:14 Methylprednisolone Sodium Succinate 40 mg/Syringe 0.64 ml @ 1.5 mls/min Q12H IV 09/21/17 04:00 10/21/17 03:59 09/23/17 03:22 1.5 MLS/MIN Guaifenesin (Organidin Nr Tab) 200 mg Q4H PO 09/21/17 04:00 10/21/17 03:59 09/23/17 08:15 200 MG Piperacillin Sod/ Tazobactam Sod 4.5 gm/Dextrose 120 ml @ 30 mls/hr Q12H IV 09/21/17 14:00 09/28/17 13:59 09/23/17 01:35 30 MLS/HR Tamsulosin HCl (Flomax Cap) 0.4 mg HS PO 09/21/17 21:00 10/21/17 20:59 09/22/17 20:04 0.4 MG Objective Vital Signs Date Time Temp Pulse Resp B/P (MAP) Pulse Ox O2 Delivery O2 Flow Rate FiO2 09/23/17 11:23 37.0 93 25 145/77 (99) 97 High Flow Oxygen 45 09/23/17 08:00 High Flow Oxygen 45.0 45 09/23/17 08:00 High Flow Oxygen 45.0 45 09/23/17 07:03 36.9 93 30 147/73 (97) 98 High Flow Oxygen 45 09/23/17 03:22 98 High Flow Oxygen 45.0 45 09/23/17 03:17 37.3 84 18 152/69 (96) 94 High Flow Oxygen 09/22/17 23:26 97 High Flow Oxygen 45.0 45 09/22/17 23:11 36.8 77 18 145/78 (100) 97 High Flow Oxygen 45.0 50 94 155/77 (103) 100 172/90 (117) 09/22/17 20:05 98 High Flow Oxygen 45 09/22/17 19:20 36.6 89 20 148/84 (105) 94 High Flow Oxygen 09/22/17 16:00 High Flow Oxygen 15.0 50 09/22/17 15:20 37.2 97 20 143/73 (96) 97 High Flow Oxygen 50 Physical Exam General Appearance: WD/WN, no apparent distress Eyes: EOMI, + abnormal sclerae exam (icterus) ENT: normal ENT inspection, hearing grossly normal, pharynx normal Neck: supple, no adenopathy, no JVD, trachea midline Respiratory/Chest: chest non-tender, no respiratory distress, no accessory muscle use, + decreased breath sounds Cardiovascular: no edema, no gallop, no JVD, no murmur, + tachycardia Abdomen: normal bowel sounds, non tender, soft, no organomegaly Extremities: normal range of motion, non-tender, normal inspection, no pedal edema, no calf tenderness, normal capillary refill, pelvis stable 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: manager universal II-XII nml as tested, alert, normal mood/affect, oriented x 3, + motor weakness Skin: warm/dry, no rash, + jaundice Lymphatic: no adenopathy Laboratory Results Last 24 Hours Test 09/22/17 16:19 09/22/17 20:30 09/23/17 05:26 09/23/17 06:04 Bedside Glucose 263 mg/dl 265 mg/dl White Blood Count K/uL 21.00 K/uL Red Blood Count M/uL 3.31 M/uL Hemoglobin g/dL 8.5 g/dL Hematocrit % 23.6 % Mean Corpuscular Volume fL 71.5 fL Mean Corpuscular Hemoglobin pg 26.0 pg Mean Corpuscular Hemoglobin Concent g/dl 36.0 g/dl Platelet Count K/uL 215 K/uL Neutrophils (%) (Auto) % 90.4 % Lymphocytes (%) (Auto) % 5.1 % Monocytes (%) (Auto) % 3.3 % Eosinophils (%) (Auto) % 0.0 % Basophils (%) (Auto) % 0.1 % Neutrophils # (Auto) K/uL 18.98 K/uL Lymphocytes # (Auto) K/uL 1.07 K/uL Monocytes # (Auto) K/uL 0.69 K/uL Eosinophils # (Auto) K/uL 0.00 K/uL Basophils # (Auto) K/uL 0.02 K/uL RDW Standard Deviation fL 37.5 fL RDW Coefficient of Variation % 14.6 % Immature Granulocyte % (Auto) % 1.1 % Immature Granulocyte # (Auto) K/uL 0.24 K/uL Platelet Estimate Giant Platelets Polychromasia Hypochromasia PRESENT Target Cells 1+ Schistocytes Prothrombin Time 12.9 SECONDS Prothromb Time International Ratio 1.2 Sodium Level 145 mmol/L Potassium Level 3.5 mmol/L Chloride Level 113 mmol/L Carbon Dioxide Level 19 mmol/L Anion Gap 13.0 mmol/L Blood Urea Nitrogen 135 mg/dl Creatinine 4.53 mg/dl Est Creatinine Clear Calc Drug Dose 14.3 ml/min Estimated GFR () 13.8 Estimated GFR (Non- 11.9 BUN/Creatinine Ratio 29.9 Random Glucose 197 mg/dl Calcium Level 7.7 mg/dl Total Bilirubin 8.0 mg/dl Direct Bilirubin 6.5 mg/dl Aspartate Amino Transf (AST/SGOT) 229 U/L Alanine Aminotransferase (ALT/SGPT) 258 U/L Alkaline Phosphatase 424 U/L Total Protein 6.6 gm/dl Albumin 1.4 gm/dl Nucleated RBC Absolute Count (auto) 0.05 K/uL Nucleated Red Blood Cells % 0.2 % Microcytosis PRESENT Test 09/23/17 06:32 09/23/17 11:18 Bedside Glucose 207 mg/dl 190 mg/dl Assessment and Plan UROSEPSIS with severe acute renal failure and metabolic acidosis in a 72 yo male with history of hypertension, BPH. - UTI with severe sepsis: blood cultures and urine culture grew pansensitive E coli continue Zosyn IV afebrile, HR < 100 now, WBC quite high at 21k but trending down overall repeat blood cultures still growing GNR despite appropriate antibiotics repeat blood cultures, 2 sets, drawn this AM 09/23 echo shows no vegetations CT chest: shows ARDS, no evidence of pneumonia, no septic emboli CT abdomen/pelvis: no abscess, no signs of infection Urology recommending 4-6 weeks total antibiotics due to suspected prostatitis Acute hypoxic respiratory failure, secondary to ARDS tolerating high flow nasal canula, breathing remains stable can use BIPAP at night responded well to the Lasix on 09/21 try to wean oxygen as tolerated - Metabolic acidosis with acute respiratory alkalosis due to severe sepsis, renal failure, anion gap still 13 today, BiCarb is 19 should correct as renal function improves and infection treated - SONY: likely ATN, improved for several days, no plateaued at 4.5 follow for signs of volume overload, use Lasix as discretion of nephrology - Hepatitis: liver enzymes remain elevated although Bili down slightly GI following serology panel sent out, HIV, Hepatitis negative EBV positive but IgG suggesting prior infection MRCP essentially normal, liver US normal, no evidence of portal vein thrombosis may be a result of sepsis surgery signed off may require liver biopsy and transfer if he does not improve INR 1.2 so liver still functioning at this point Thrombocytopenia: 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
--- NOTE | 2017-09-23 14:05 | Progress Note ---
Subjective Date of Service: Sep 23, 2017. Subjective pt remains with + blood cultures. s/p ct chest abd/pelvis - no abscess, noncontrast. ? ARDS. Remains on zoysn, tolerating. Echo negative for vegetation. 09/23 cultures pending. Viral titers unrevealing, EBV IgG +, IgM negative. Parvo negative, HSV IgM negative. Afebrile overnight. Problem List Medical Problems: (1) Acute renal failure Status: Acute (2) Hyperbilirubinemia Status: Acute (3) Leukocytosis Status: Acute (4) UTI (urinary tract infection) Status: Acute Objective Vital Signs Date Time Temp Pulse Resp B/P (MAP) Pulse Ox O2 Delivery O2 Flow Rate FiO2 09/23/17 12:00 Oxymask 6.0 09/23/17 12:00 Oxymask 6.0 09/23/17 11:23 37.0 93 25 145/77 (99) 97 High Flow Oxygen 45 09/23/17 08:00 High Flow Oxygen 45.0 45 09/23/17 08:00 High Flow Oxygen 45.0 45 09/23/17 07:03 36.9 93 30 147/73 (97) 98 High Flow Oxygen 45 09/23/17 03:22 98 High Flow Oxygen 45.0 45 09/23/17 03:17 37.3 84 18 152/69 (96) 94 High Flow Oxygen 09/22/17 23:26 97 High Flow Oxygen 45.0 45 09/22/17 23:11 36.8 77 18 145/78 (100) 97 High Flow Oxygen 45.0 50 94 155/77 (103) 100 172/90 (117) 09/22/17 20:05 98 High Flow Oxygen 45 09/22/17 19:20 36.6 89 20 148/84 (105) 94 High Flow Oxygen 09/22/17 16:00 High Flow Oxygen 15.0 50 09/22/17 15:20 37.2 97 20 143/73 (96) 97 High Flow Oxygen 50 Laboratory Results Last 24 Hours Test 09/22/17 16:19 09/22/17 20:30 09/23/17 05:26 09/23/17 06:04 Bedside Glucose 263 mg/dl 265 mg/dl White Blood Count K/uL 21.00 K/uL Red Blood Count M/uL 3.31 M/uL Hemoglobin g/dL 8.5 g/dL Hematocrit % 23.6 % Mean Corpuscular Volume fL 71.5 fL Mean Corpuscular Hemoglobin pg 26.0 pg Mean Corpuscular Hemoglobin Concent g/dl 36.0 g/dl Platelet Count K/uL 215 K/uL Neutrophils (%) (Auto) % 90.4 % Lymphocytes (%) (Auto) % 5.1 % Monocytes (%) (Auto) % 3.3 % Eosinophils (%) (Auto) % 0.0 % Basophils (%) (Auto) % 0.1 % Neutrophils # (Auto) K/uL 18.98 K/uL Lymphocytes # (Auto) K/uL 1.07 K/uL Monocytes # (Auto) K/uL 0.69 K/uL Eosinophils # (Auto) K/uL 0.00 K/uL Basophils # (Auto) K/uL 0.02 K/uL RDW Standard Deviation fL 37.5 fL RDW Coefficient of Variation % 14.6 % Immature Granulocyte % (Auto) % 1.1 % Immature Granulocyte # (Auto) K/uL 0.24 K/uL Platelet Estimate Giant Platelets Polychromasia Hypochromasia PRESENT Target Cells 1+ Schistocytes Prothrombin Time 12.9 SECONDS Prothromb Time International Ratio 1.2 Sodium Level 145 mmol/L Potassium Level 3.5 mmol/L Chloride Level 113 mmol/L Carbon Dioxide Level 19 mmol/L Anion Gap 13.0 mmol/L Blood Urea Nitrogen 135 mg/dl Creatinine 4.53 mg/dl Est Creatinine Clear Calc Drug Dose 14.3 ml/min Estimated GFR () 13.8 Estimated GFR (Non- 11.9 BUN/Creatinine Ratio 29.9 Random Glucose 197 mg/dl Calcium Level 7.7 mg/dl Total Bilirubin 8.0 mg/dl Direct Bilirubin 6.5 mg/dl Aspartate Amino Transf (AST/SGOT) 229 U/L Alanine Aminotransferase (ALT/SGPT) 258 U/L Alkaline Phosphatase 424 U/L Total Protein 6.6 gm/dl Albumin 1.4 gm/dl Nucleated RBC Absolute Count (auto) 0.05 K/uL Nucleated Red Blood Cells % 0.2 % Microcytosis PRESENT Test 09/23/17 06:32 09/23/17 11:18 Bedside Glucose 207 mg/dl 190 mg/dl Assessment and Plan (1) Severe sepsis with acute organ dysfunction Assessment & Plan: persistent bacteremia on appropriate abx. repeat blood cultures pending. repeat abd imaging negative for infection, echo negative as well. continue zosyn, follow cultures. will require prolonged course. (2) Leukocytosis (3) UTI (urinary tract infection) (4) Hyperbilirubinemia Continued [facility] stay due to: abnormal vital signs, voiding difficulties Discharge planning: uncertain
[2017-09-23] MEDS: INSULIN ASPART 100 UNITS/ML 3 ML PEN SC SCH ×2 (18:12→21:23)
[2017-09-23] MEDS: TAMSULOSIN HCL 0.4 MG CAP PO SCH (20:55)
[2017-09-24] VITALS (7 sets, daily range): BP systolic 128–162; BP diastolic 67–78; PULSE 62–82; TEMP 36.5–36.9; O2SAT 96–99
[2017-09-24] MEDS: GUAIFENESIN 200 MG TAB PO SCH ×7 (00:51→23:34)
[2017-09-24] MEDS: PIPERACILL/TAZOBAC IV 4.5 GM in DEXTROSE 5% 100ML IV SCH ×2 (00:51→13:06)
[2017-09-24] MEDS: METHYLPREDNISOLONE IV 40 MG in SYRINGE 0 ML IV SCH ×2 (04:51→16:04)
[2017-09-24 07:11] LABS: CALCIUM 7.8 mg/dl (8.5-10.1); CREATININE 4.42 mg/dl (0.60-1.40); POTASSIUM 4.1 mmol/L (3.5-5.1)
[2017-09-24] MEDS: METOPROLOL TARTRATE 25 MG TAB PO SCH ×2 (08:22→20:26)
[2017-09-24] MEDS: ASPIRIN 81 MG ECTAB PO SCH (08:22)
[2017-09-24] MEDS: AMLODIPINE BESYLATE 5 MG TAB PO SCH (08:22)
[2017-09-24] MEDS: LIDODERM (LIDOCAINE) PATCH 5% TD SCH (08:23)
[2017-09-24] MEDS: INSULIN ASPART 100 UNITS/ML 3 ML PEN SC SCH ×4 (08:27→20:28)
--- NOTE | 2017-09-24 10:28 | Nephrology Progress Note ---
Nephrology Progress Note Date of Service Sep 24, 2017. Chief Complaint SONY Subjective Mr. Emmanuel was seen & examined in the PCU this morning. He reports that his breathing has improved. His oxygen requirements are much less. Mr. Emmanuel voices no new medical concerns. Review of Systems Constitutional: No fever Cardiovascular: No chest pain Respiratory: + dyspnea on exertion, No dyspnea at rest Abdomen: No pain, No nausea, No vomiting Extremities: No leg edema A complete review of systems was performed. Pertinent positives are noted above. All other systems are negative. Vital Signs Last 8 Hrs Date Time Temp Pulse Resp B/P (MAP) Pulse Ox O2 Delivery O2 Flow Rate FiO2 09/24/17 07:10 36.7 82 18 135/73 (93) 98 Oxymask 6.0 09/24/17 04:11 Oxymask 09/24/17 04:09 36.5 80 18 162/78 (106) 98 Last Recorded Weight Weight (Kilograms): 79.300 Physical Exam General Appearance: no apparent distress Head: normocephalic, atraumatic Eyes: PERRL, EOMI Neck: no adenopathy Respiratory/Chest: lungs clear, no respiratory distress Cardiovascular: regular rate, rhythm Abdomen/GI: normal bowel sounds, non tender, soft Extremities/Musculoskelatal: no calf tenderness, no pedal edema Neurologic/Psych: alert, oriented x 3 Social History Smokeless Tobacco Use: No Alcohol Use: none Drug Use: none 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) Laboratory Results Past 24 Hours 09/24/17 06:16 Test 09/23/17 11:18 09/23/17 16:22 09/23/17 20:47 09/24/17 06:16 Bedside Glucose 190 mg/dl (70-99) 217 mg/dl (70-99) 176 mg/dl (70-99) Anion Gap 15.0 mmol/L (3-11) Est Creatinine Clear Calc Drug Dose 14.7 ml/min Estimated GFR () 14.2 Estimated GFR (Non- 12.2 BUN/Creatinine Ratio 30.7 (10-20) Calcium Level 7.8 mg/dl (8.5-10.1) Test 09/24/17 08:14 Allergies Coded Allergies: No Known Allergies (Unverified , 09/17/17) Medications Current Inpatient Medications Medications (Trade) Dose Ordered Sig/Candelaria Route Start Time Stop Time Status Last Admin Dose Admin Aspirin (Ecotrin Tab) 81 mg QAM PO 09/17/17 13:00 10/17/17 12:59 09/24/17 08:22 81 MG Al Hydrox/Mg Hydrox/Simethicone (Maalox Max Susp) 15 ml Q4H PRN PO 09/17/17 08:30 10/17/17 08:29 Lidocaine (Lidoderm Patch 5%) 1 patch QAM TD 09/18/17 09:00 10/18/17 08:59 09/24/17 08:23 1 PATCH Miscellaneous (Remove Lidoderm Patch) 1 ea DAILY@21 N/A 09/17/17 21:00 10/17/17 20:59 09/22/17 20:04 1 EA Metoprolol Tartrate (Lopressor Tab) 25 mg BID PO 09/18/17 21:00 10/18/17 20:59 09/24/17 08:22 25 MG Amlodipine Besylate (Norvasc Tab) 10 mg QAM PO 09/19/17 09:00 10/19/17 08:59 09/24/17 08:22 10 MG Miscellaneous Information (Consult) 1 ea UD PRN N/A 09/21/17 03:15 10/21/17 03:14 Methylprednisolone Sodium Succinate 40 mg/Syringe 0.64 ml @ 1.5 mls/min Q12H IV 09/21/17 04:00 10/21/17 03:59 09/24/17 04:51 1.5 MLS/MIN Guaifenesin (Organidin Nr Tab) 200 mg Q4H PO 09/21/17 04:00 10/21/17 03:59 09/24/17 08:22 200 MG Piperacillin Sod/ Tazobactam Sod 4.5 gm/Dextrose 120 ml @ 30 mls/hr Q12H IV 09/21/17 14:00 09/28/17 13:59 09/24/17 00:51 30 MLS/HR Tamsulosin HCl (Flomax Cap) 0.4 mg HS PO 09/21/17 21:00 10/21/17 20:59 09/23/17 20:55 0.4 MG Insulin Aspart (novoLOG ASPART) SLIDING SCALE G... ACHS SC 09/23/17 16:15 10/23/17 16:14 09/24/17 08:27 1 UNITS Impression (1) Acute renal failure (2) Hyperbilirubinemia (3) UTI (urinary tract infection) (4) Leukocytosis (5) Thrombocytopenia (6) Anemia (7) Gram-negative bacteremia Mr. Emmanuel is an inmate from [facility] admitted for evaluation of progressive symptoms of weakness, anorexia, nausea, abdominal discomfort and left hip pain. Clinical presentation consistent with severe sepsis. Blood and urine cultures have grown out dhaliwal sensitive E coli. Patient was treated with Zosyn. Medical history is notable for a BPH, urinary obstruction with chronic indwelling Hamm as well as an elevated PSA. Initial evaluation is notable for SONY, hyperbilirubinemia (direct), hypoalbuminemia, thrombocytopenia, anemia and a marked leukocytosis. Peripheral smear was negative for hematologic malignancy or hemolytic anemia. Platelet count continues to fall. INR and PTT are slightly elevated. Fibrinogen is elevated which is not consistent with DIC and less consistent with chronic liver disease. 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 The kidneys are normal in appearance. There is no evidence of obstruction. Urine is turbid with gross hematuria. UA documented hematuria, proteinuria, pyuria. Urine and blood cultures are positive for pansensitive E. Coli. Liver is not cirrhotic appearing. RUQ US documented enlarged GB without obvious stone or obstruction. MRCP was negative Patient has had R hip pain. X-ray shows degenerative changes of the hip. No evidence of metastatic disease Recommendations SONY / ATN: -- Kidney function remains relatively stable at creatinine 4.4. Patient had brisk diuresis overnight. Electrolyte balance is acceptable. Patient is developing progressive azotemia related to SONY and steroid therapy. Recommend tapering steroid therapy -- Metabolic acidosis remains relatively stable. 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 Heparin has been discontinued Elevated PSA/urinary obstruction: -- Hamm to gravity -- Urology consultation reviewed. Patient had cancelled outpatient prostate biopsy. He is now being treated for prostatitis Elevated LFT's: -- LFT's pending this am. GI considering liver biopsy
--- NOTE | 2017-09-24 11:05 | Progress Note ---
Subjective Date of Service: Sep 24, 2017. Subjective Pt evaluation today including: conversation w/ patient, physical exam, chart review, lab review pt transferred from ICU, mask O2. denies sob, cp, cough. eating well. 09/23 blood cultures pending, remains on zosyn, tolerating well. denies abd pain n/v/d. no f /c. blood cultures from 09/17,09/18,09/21 with dhaliwal sensitive E. coli. Repeat ct and echo done yesterday negative for infection but ct was non contrast. creat remains elevated. LFTs pending this am but increased, bilirubin improving. all remaining ros reviewed and are negative. Problem List Medical Problems: (1) Acute renal failure Status: Acute (2) Hyperbilirubinemia Status: Acute (3) Leukocytosis Status: Acute (4) UTI (urinary tract infection) Status: Acute Objective Vital Signs Date Time Temp Pulse Resp B/P (MAP) Pulse Ox O2 Delivery O2 Flow Rate FiO2 09/24/17 07:10 36.7 82 18 135/73 (93) 98 Oxymask 6.0 09/24/17 04:11 Oxymask 09/24/17 04:09 36.5 80 18 162/78 (106) 98 09/24/17 00:54 Oxymask 09/24/17 00:21 36.7 76 18 137/70 (92) 97 09/23/17 21:51 73 20 136/72 (93) 91 128/85 (99) 94 153/75 (101) 09/23/17 20:57 92 148/78 (101) 09/23/17 20:05 36.4 85 20 137/67 (90) 96 Oxymask 6.0 09/23/17 20:00 98 Oxymask 6.0 09/23/17 16:00 Oxymask 6.0 09/23/17 15:43 36.4 79 20 138/66 (90) 98 Oxymask 6.0 09/23/17 12:00 Oxymask 6.0 09/23/17 12:00 Oxymask 6.0 09/23/17 11:23 37.0 93 25 145/77 (99) 97 High Flow Oxygen 45 Physical Exam General Appearance: WD/WN, no apparent distress Eyes: normal inspection, EOMI Neck: supple Respiratory/Chest: lungs clear, normal breath sounds, no respiratory distress Cardiovascular: regular rate, rhythm, no edema Abdomen: non tender, soft Extremities: non-tender, no pedal edema 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: alert, oriented x 3 Skin: normal color Laboratory Results Item Value Date Time Blood Culture - Preliminary Resulted 09/21/17 0817 Blood Escherichia Coli Blood Culture - Preliminary Resulted 09/21/17 0810 Blood Escherichia Coli Last 24 Hours Test 09/23/17 11:18 09/23/17 16:22 09/23/17 20:47 09/24/17 06:16 Bedside Glucose 190 mg/dl 217 mg/dl 176 mg/dl Sodium Level 147 mmol/L Potassium Level 4.1 mmol/L Chloride Level 115 mmol/L Carbon Dioxide Level 17 mmol/L Anion Gap 15.0 mmol/L Blood Urea Nitrogen 136 mg/dl Creatinine 4.42 mg/dl Est Creatinine Clear Calc Drug Dose 14.7 ml/min Estimated GFR () 14.2 Estimated GFR (Non- 12.2 BUN/Creatinine Ratio 30.7 Random Glucose 168 mg/dl Calcium Level 7.8 mg/dl Test 09/24/17 06:22 09/24/17 08:14 Bedside Glucose 180 mg/dl Assessment and Plan (1) Severe sepsis with acute organ dysfunction Assessment & Plan: persistent bacteremia on appropriate abx. repeat blood cultures pending. repeat abd imaging negative for infection, echo negative as well. continue zosyn, follow cultures. will require prolonged course. No new ID suggestions at this time. (2) Leukocytosis (3) UTI (urinary tract infection) (4) Hyperbilirubinemia Continued [facility] stay due to: abnormal vital signs, voiding difficulties Discharge planning: uncertain
[2017-09-24 11:24] LABS: NUCLEATED RED BLOOD CELL ABS 0.07 K/uL (0-0)
[2017-09-24 11:41] LABS: HEMATOCRIT 27.2 % (42-52); HEMOGLOBIN 9.7 g/dL (14.0-18.0); MEAN CELL VOLUME 72.3 fL (80-100); MEAN CORPUSCULAR HEMOGLOBIN 25.8 pg (25-34); MEAN CORPUSCULAR HGB CONC 35.7 g/dl (32-36); PLATELET COUNT 354 K/uL (130-400); RED CELL DISTRIBUTION WIDTH CV 14.9 % (11.5-14.5); RED CELL DISTRIBUTION WIDTH SD 38.7 fL (36.4-46.3); WHITE BLOOD COUNT 25.29 K/uL (4.8-10.8)
[2017-09-24 11:49] LABS: ALBUMIN 1.6 gm/dl (3.4-5.0)
--- NOTE | 2017-09-24 12:26 | Gastroenterology Progress Note ---
Progress Note Date of Service: Sep 24, 2017 Subjective Pt evaluation today including: conversation w/ patient, physical exam, chart review, lab review, review of inpatient medication list Pt feels well, tolerating solid meals, denies any n/v. LFTs slowly decreasing. Review of Systems Constitutional: No fever, No chills Respiratory: No cough, No shortness of breath Cardiac: No chest pain Abdomen: No pain, No nausea, No vomiting Skin: + jaundice Medications Current Inpatient Medications Medications (Trade) Dose Ordered Sig/Candelaria Route Start Time Stop Time Status Last Admin Dose Admin Aspirin (Ecotrin Tab) 81 mg QAM PO 09/17/17 13:00 10/17/17 12:59 09/24/17 08:22 81 MG Al Hydrox/Mg Hydrox/Simethicone (Maalox Max Susp) 15 ml Q4H PRN PO 09/17/17 08:30 10/17/17 08:29 Lidocaine (Lidoderm Patch 5%) 1 patch QAM TD 09/18/17 09:00 10/18/17 08:59 09/24/17 08:23 1 PATCH Miscellaneous (Remove Lidoderm Patch) 1 ea DAILY@21 N/A 09/17/17 21:00 10/17/17 20:59 09/22/17 20:04 1 EA Metoprolol Tartrate (Lopressor Tab) 25 mg BID PO 09/18/17 21:00 10/18/17 20:59 09/24/17 08:22 25 MG Amlodipine Besylate (Norvasc Tab) 10 mg QAM PO 09/19/17 09:00 10/19/17 08:59 09/24/17 08:22 10 MG Miscellaneous Information (Consult) 1 ea UD PRN N/A 09/21/17 03:15 10/21/17 03:14 Methylprednisolone Sodium Succinate 40 mg/Syringe 0.64 ml @ 1.5 mls/min Q12H IV 09/21/17 04:00 10/21/17 03:59 09/24/17 04:51 1.5 MLS/MIN Guaifenesin (Organidin Nr Tab) 200 mg Q4H PO 09/21/17 04:00 10/21/17 03:59 09/24/17 08:22 200 MG Piperacillin Sod/ Tazobactam Sod 4.5 gm/Dextrose 120 ml @ 30 mls/hr Q12H IV 09/21/17 14:00 09/28/17 13:59 09/24/17 00:51 30 MLS/HR Tamsulosin HCl (Flomax Cap) 0.4 mg HS PO 09/21/17 21:00 10/21/17 20:59 09/23/17 20:55 0.4 MG Insulin Aspart (novoLOG ASPART) SLIDING SCALE G... ACHS SC 09/23/17 16:15 10/23/17 16:14 09/24/17 08:27 1 UNITS Objective Vital Signs Date Time Temp Pulse Resp B/P (MAP) Pulse Ox O2 Delivery O2 Flow Rate FiO2 09/24/17 07:10 36.7 82 18 135/73 (93) 98 Oxymask 6.0 09/24/17 04:11 Oxymask 09/24/17 04:09 36.5 80 18 162/78 (106) 98 09/24/17 00:54 Oxymask 09/24/17 00:21 36.7 76 18 137/70 (92) 97 09/23/17 21:51 73 20 136/72 (93) 91 128/85 (99) 94 153/75 (101) 09/23/17 20:57 92 148/78 (101) 09/23/17 20:05 36.4 85 20 137/67 (90) 96 Oxymask 6.0 09/23/17 20:00 98 Oxymask 6.0 09/23/17 16:00 Oxymask 6.0 09/23/17 15:43 36.4 79 20 138/66 (90) 98 Oxymask 6.0 Physical Exam General Appearance: WD/WN, no apparent distress Eyes: EOMI, + pertinent finding (icteric sclera) Neck: supple, no JVD, trachea midline Respiratory/Chest: normal breath sounds, no respiratory distress, no accessory muscle use Cardiovascular: regular rate, rhythm, no gallop, no murmur Abdomen: normal bowel sounds, non tender, soft Extremities: normal inspection, no pedal edema, no calf tenderness Neurologic/Psych: alert, normal mood/affect, oriented x 3 Skin: no rash, + jaundice Laboratory Results Last 24 Hours Test 09/23/17 16:22 09/23/17 20:47 09/24/17 06:16 09/24/17 06:22 Bedside Glucose 217 mg/dl 176 mg/dl 180 mg/dl Sodium Level 147 mmol/L Potassium Level 4.1 mmol/L Chloride Level 115 mmol/L Carbon Dioxide Level 17 mmol/L Anion Gap 15.0 mmol/L Blood Urea Nitrogen 136 mg/dl Creatinine 4.42 mg/dl Est Creatinine Clear Calc Drug Dose 14.7 ml/min Estimated GFR () 14.2 Estimated GFR (Non- 12.2 BUN/Creatinine Ratio 30.7 Random Glucose 168 mg/dl Calcium Level 7.8 mg/dl Test 09/24/17 11:05 09/24/17 11:33 09/24/17 11:34 White Blood Count 25.29 K/uL Red Blood Count 3.76 M/uL Hemoglobin 9.7 g/dL Hematocrit 27.2 % Mean Corpuscular Volume 72.3 fL Mean Corpuscular Hemoglobin 25.8 pg Mean Corpuscular Hemoglobin Concent 35.7 g/dl RDW Standard Deviation 38.7 fL RDW Coefficient of Variation 14.9 % Platelet Count 354 K/uL Nucleated RBC Absolute Count (auto) 0.07 K/uL Nucleated Red Blood Cells % 0.3 % Total Bilirubin 7.0 mg/dl Direct Bilirubin 5.5 mg/dl Aspartate Amino Transf (AST/SGOT) 210 U/L Alanine Aminotransferase (ALT/SGPT) 376 U/L Alkaline Phosphatase 493 U/L Total Protein 7.0 gm/dl Albumin 1.6 gm/dl Bedside Glucose 221 mg/dl 220 mg/dl Assessment and Plan Patient is a 72 year old male with recent history of urinary retention and placement of a vega admitted with severe gram negative sepsis (source appears to be the urine) with associated renal injury as well as elevated liver enzymes (cholestatic) related to sepsis. No indication of biliary obstruction on CT, u/ s and MRCP. WBC increasing again. LFTs showed decreased Tbili, AST/ALT, alk phos about same. Plans - Continue antibx for sepsis; ID following - Acute hepatitis negative, HIV negative. Will F/U autoimmune, hereditary liver disease, viral illness serologies to rule out other possible liver diseases ( negative so far), Utox, APAP level (unable to be obtained) - Obtain Liver doppler to r/o Budd Chiari -> patent portal and hepatic veins - Monitor LFTs, PT/INR and Cr daily. If INR rises, this may indicate worsening liver function/failure and would consider transfer to tertiary care center - Will consider liver bx if not improve in next few days. I performed a history and physical examination of the patient. I have discussed the patient's case, impression and plan with PATRIA Arce. Her note reflects my findings and plan. Liver enzyme elevation most likely from sepsis and cholestasis from infection. Improving. Pascual Martinez MD
--- NOTE | 2017-09-24 13:56 | Progress Note ---
Subjective Date of Service: Sep 24, 2017. Subjective Pt evaluation today including: conversation w/ patient, physical exam, lab review, conversation w/ consultant electronics, review of inpatient medication list Pain: no pain PO Intake: adequate Voiding: vega catheter in place patient breathing better today, off of the high flow, stable on 6L oxymask no pain, tolerating diet reviewed labs, Cr still high at 4.4 Bilirubin trending down, AST/ALT and alk phos elevated repeat blood cultures still pending, cultures from 09/21 growing pansensitive E coli Problem List Medical Problems: (1) Acute renal failure Status: Acute (2) Hyperbilirubinemia Status: Acute (3) Leukocytosis Status: Acute (4) UTI (urinary tract infection) Status: Acute Review of Systems Constitutional: + weakness, + fatigue Respiratory: + cough, + shortness of breath, + dyspnea on exertion All Other Systems: Reviewed and Negative Medications Current Inpatient Medications Medications (Trade) Dose Ordered Sig/Candelaria Route Start Time Stop Time Status Last Admin Dose Admin Aspirin (Ecotrin Tab) 81 mg QAM PO 09/17/17 13:00 10/17/17 12:59 09/24/17 08:22 81 MG Al Hydrox/Mg Hydrox/Simethicone (Maalox Max Susp) 15 ml Q4H PRN PO 09/17/17 08:30 10/17/17 08:29 Lidocaine (Lidoderm Patch 5%) 1 patch QAM TD 09/18/17 09:00 10/18/17 08:59 09/24/17 08:23 1 PATCH Miscellaneous (Remove Lidoderm Patch) 1 ea DAILY@21 N/A 09/17/17 21:00 10/17/17 20:59 09/22/17 20:04 1 EA Metoprolol Tartrate (Lopressor Tab) 25 mg BID PO 09/18/17 21:00 10/18/17 20:59 09/24/17 08:22 25 MG Amlodipine Besylate (Norvasc Tab) 10 mg QAM PO 09/19/17 09:00 10/19/17 08:59 09/24/17 08:22 10 MG Miscellaneous Information (Consult) 1 ea UD PRN N/A 09/21/17 03:15 10/21/17 03:14 Methylprednisolone Sodium Succinate 40 mg/Syringe 0.64 ml @ 1.5 mls/min Q12H IV 09/21/17 04:00 10/21/17 03:59 09/24/17 04:51 1.5 MLS/MIN Guaifenesin (Organidin Nr Tab) 200 mg Q4H PO 09/21/17 04:00 10/21/17 03:59 09/24/17 13:02 200 MG Piperacillin Sod/ Tazobactam Sod 4.5 gm/Dextrose 120 ml @ 30 mls/hr Q12H IV 09/21/17 14:00 09/28/17 13:59 09/24/17 13:06 30 MLS/HR Tamsulosin HCl (Flomax Cap) 0.4 mg HS PO 09/21/17 21:00 10/21/17 20:59 09/23/17 20:55 0.4 MG Insulin Aspart (novoLOG ASPART) SLIDING SCALE G... ACHS SC 09/23/17 16:15 10/23/17 16:14 09/24/17 13:05 2 UNITS Objective Vital Signs Date Time Temp Pulse Resp B/P (MAP) Pulse Ox O2 Delivery O2 Flow Rate FiO2 09/24/17 12:00 36.8 75 17 135/67 (89) 99 Oxymask 6.0 09/24/17 07:10 36.7 82 18 135/73 (93) 98 Oxymask 6.0 09/24/17 04:11 Oxymask 09/24/17 04:09 36.5 80 18 162/78 (106) 98 09/24/17 00:54 Oxymask 09/24/17 00:21 36.7 76 18 137/70 (92) 97 09/23/17 21:51 73 20 136/72 (93) 91 128/85 (99) 94 153/75 (101) 09/23/17 20:57 92 148/78 (101) 09/23/17 20:05 36.4 85 20 137/67 (90) 96 Oxymask 6.0 09/23/17 20:00 98 Oxymask 6.0 09/23/17 16:00 Oxymask 6.0 09/23/17 15:43 36.4 79 20 138/66 (90) 98 Oxymask 6.0 Physical Exam General Appearance: WD/WN, no apparent distress Eyes: normal inspection, EOMI, + abnormal sclerae exam (icterus) ENT: normal ENT inspection, hearing grossly normal, pharynx normal Neck: supple, no adenopathy, no JVD, trachea midline Respiratory/Chest: chest non-tender, lungs clear, no respiratory distress, no accessory muscle use, + decreased breath sounds (bases) Cardiovascular: regular rate, rhythm, no edema, no gallop, no JVD, no murmur Abdomen: normal bowel sounds, non tender, soft, no organomegaly Extremities: normal range of motion, non-tender, normal inspection, no pedal edema, no calf tenderness, normal capillary refill, pelvis stable 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: color corrector II-XII nml as tested, no motor/sensory deficits, alert, normal mood/affect, oriented x 3 Skin: warm/dry, no rash, + jaundice Lymphatic: no adenopathy Laboratory Results Last 24 Hours Test 09/23/17 16:22 09/23/17 20:47 09/24/17 06:16 09/24/17 06:22 Bedside Glucose 217 mg/dl 176 mg/dl 180 mg/dl Sodium Level 147 mmol/L Potassium Level 4.1 mmol/L Chloride Level 115 mmol/L Carbon Dioxide Level 17 mmol/L Anion Gap 15.0 mmol/L Blood Urea Nitrogen 136 mg/dl Creatinine 4.42 mg/dl Est Creatinine Clear Calc Drug Dose 14.7 ml/min Estimated GFR () 14.2 Estimated GFR (Non- 12.2 BUN/Creatinine Ratio 30.7 Random Glucose 168 mg/dl Calcium Level 7.8 mg/dl Test 09/24/17 11:05 09/24/17 11:33 09/24/17 11:34 White Blood Count 25.29 K/uL Red Blood Count 3.76 M/uL Hemoglobin 9.7 g/dL Hematocrit 27.2 % Mean Corpuscular Volume 72.3 fL Mean Corpuscular Hemoglobin 25.8 pg Mean Corpuscular Hemoglobin Concent 35.7 g/dl RDW Standard Deviation 38.7 fL RDW Coefficient of Variation 14.9 % Platelet Count 354 K/uL Nucleated RBC Absolute Count (auto) 0.07 K/uL Nucleated Red Blood Cells % 0.3 % Total Bilirubin 7.0 mg/dl Direct Bilirubin 5.5 mg/dl Aspartate Amino Transf (AST/SGOT) 210 U/L Alanine Aminotransferase (ALT/SGPT) 376 U/L Alkaline Phosphatase 493 U/L Total Protein 7.0 gm/dl Albumin 1.6 gm/dl Bedside Glucose 221 mg/dl 220 mg/dl Assessment and Plan UROSEPSIS with severe acute renal failure and metabolic acidosis in a 72 yo male with history of hypertension, BPH. - UTI with severe sepsis: blood cultures and urine culture grew pansensitive E coli continue Zosyn IV, will need 4-6 weeks total afebrile, WBC still high at 25k, was 21k yesterday blood culture from 09/21 growing pansensitive E coli repeat cultures from 09/23 still pending echo shows no vegetations CT chest: shows ARDS, no evidence of pneumonia, no septic emboli CT abdomen/pelvis: no abscess, no signs of infection Urology recommending 4-6 weeks total antibiotics due to suspected prostatitis Acute hypoxic respiratory failure, secondary to ARDS titrated off of High flow, stable on oxymask today responded well to the Lasix on 09/21 try to wean oxygen as tolerated - Metabolic acidosis with acute respiratory alkalosis due to severe sepsis, renal failure, anion gap still 15 today, BiCarb is 17 would not expect this to improve until renal function improves - SONY: likely ATN, improved for several days, now plateaued at 4.4 follow for signs of volume overload, use Lasix as discretion of nephrology - Hepatitis: liver enzymes remain elevated although Bili continues to go down slightly GI following serology panel sent out, HIV, Hepatitis negative EBV positive but IgG suggesting prior infection MRCP essentially normal, liver US normal, no evidence of portal vein thrombosis may be a result of sepsis surgery signed off may require liver biopsy and transfer if he does not improve INR remains normal so liver still functioning at this point Thrombocytopenia: resolved, 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
[2017-09-24] MEDS: TAMSULOSIN HCL 0.4 MG CAP PO SCH (20:26)
[2017-09-25] VITALS (12 sets, daily range): BP systolic 79–154; BP diastolic 58–76; PULSE 68–105; TEMP 36.5–36.9; O2SAT 94–100
[2017-09-25] MEDS: PIPERACILL/TAZOBAC IV 4.5 GM in DEXTROSE 5% 100ML IV SCH ×2 (02:55→14:33)
[2017-09-25] MEDS: GUAIFENESIN 200 MG TAB PO SCH ×5 (02:56→19:40)
[2017-09-25] MEDS: METHYLPREDNISOLONE IV 40 MG in SYRINGE 0 ML IV SCH ×2 (05:01→16:21)
[2017-09-25 07:48] LABS: HEMATOCRIT 25.7 % (42-52); MEAN CELL VOLUME 72.8 fL (80-100); MEAN CORPUSCULAR HEMOGLOBIN 25.5 pg (25-34); NUCLEATED RED BLOOD CELL ABS 0.07 K/uL (0-0); PLATELET COUNT 412 K/uL (130-400); RED CELL DISTRIBUTION WIDTH CV 15.2 % (11.5-14.5); RED CELL DISTRIBUTION WIDTH SD 39.7 fL (36.4-46.3); WHITE BLOOD COUNT 26.88 K/uL (4.8-10.8)
[2017-09-25 08:06] LABS: INR 1.2 (0.9-1.1)
[2017-09-25 08:17] LABS: BASO % 0.1 %; BASO ABS # 0.03 K/uL (0-0.2); IG# 0.17 K/uL (0.00-0.02); LYMPH % 2.9 %; LYMPH ABS # 0.77 K/uL (1.2-3.4); NEUT % 93.4 %; NEUT ABS # 25.11 K/uL (1.4-6.5)
[2017-09-25 08:23] LABS: ALBUMIN 1.6 gm/dl (3.4-5.0); CALCIUM 8.2 mg/dl (8.5-10.1); CREATININE 4.06 mg/dl (0.60-1.40); POTASSIUM 3.9 mmol/L (3.5-5.1); TOTAL PROTEIN 6.4 gm/dl (6.4-8.2)
[2017-09-25] MEDS: ASPIRIN 81 MG ECTAB PO SCH (08:32)
[2017-09-25] MEDS: METOPROLOL TARTRATE 25 MG TAB PO SCH ×2 (08:32→19:40)
[2017-09-25] MEDS: LIDODERM (LIDOCAINE) PATCH 5% TD SCH (08:33)
[2017-09-25] MEDS: AMLODIPINE BESYLATE 5 MG TAB PO SCH (08:33)
[2017-09-25] MEDS: INSULIN ASPART 100 UNITS/ML 3 ML PEN SC SCH ×4 (08:40→22:33)
--- NOTE | 2017-09-25 11:10 | Nephrology Progress Note ---
Nephrology Progress Note Date of Service Sep 25, 2017. Chief Complaint SONY Subjective Mr. Emmanuel was seen & examined in the PCU this morning. He denied angina or dyspnea. He voiced no new medical concerns. Review of Systems Constitutional: No fever Cardiovascular: No chest pain Respiratory: No dyspnea at rest Abdomen: No pain, No nausea, No vomiting Extremities: No leg edema A complete review of systems was performed. Pertinent positives are noted above. All other systems are negative. Vital Signs Last 8 Hrs Date Time Temp Pulse Resp B/P (MAP) Pulse Ox O2 Delivery O2 Flow Rate FiO2 09/25/17 07:56 36.5 77 18 147/74 (98) 97 4.0 09/25/17 04:28 36.6 74 21 145/68 (93) 98 Oxymask 4.0 09/25/17 04:00 Oxymask 5.0 Last Recorded Weight Weight (Kilograms): 79.100 Physical Exam General Appearance: no apparent distress Head: normocephalic, atraumatic Eyes: PERRL Neck: no adenopathy Respiratory/Chest: lungs clear Cardiovascular: regular rate, rhythm Abdomen/GI: normal bowel sounds, non tender, soft Genitourinary - Male: + pertinent finding (vega catheter draining clear yellow urine) Extremities/Musculoskelatal: no pedal edema Neurologic/Psych: alert, oriented x 3 Social History Smokeless Tobacco Use: No Alcohol Use: none Drug Use: none 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) Laboratory Results Past 24 Hours 09/25/17 07:28 Red Blood Count 3.53, Mean Corpuscular Volume 72.8, Mean Corpuscular Hemoglobin 25.5, Mean Corpuscular Hemoglobin Concent 35.0, Neutrophils (%) (Auto) 93.4, Lymphocytes (%) (Auto) 2.9, Monocytes (%) (Auto) 3.0, Eosinophils (%) (Auto) 0.0 , Basophils (%) (Auto) 0.1, Neutrophils # (Auto) 25.11, Lymphocytes # (Auto) 0.77, Monocytes # (Auto) 0.80, Eosinophils # (Auto) 0.00, Basophils # (Auto) 0.03 09/25/17 07:28 Test 09/24/17 11:33 09/24/17 11:34 09/24/17 16:22 09/24/17 20:05 Bedside Glucose 221 mg/dl (70-99) 220 mg/dl (70-99) 205 mg/dl (70-99) 234 mg/dl (70-99) Test 09/25/17 07:28 White Blood Count 26.88 K/uL (4.8-10.8) Red Blood Count 3.53 M/uL (4.7-6.1) Hemoglobin 9.0 g/dL (14.0-18.0) Hematocrit 25.7 % (42-52) Mean Corpuscular Volume 72.8 fL (80-100) Mean Corpuscular Hemoglobin 25.5 pg (25-34) Mean Corpuscular Hemoglobin Concent 35.0 g/dl (32-36) Platelet Count 412 K/uL (130-400) Neutrophils (%) (Auto) 93.4 % Lymphocytes (%) (Auto) 2.9 % Monocytes (%) (Auto) 3.0 % Eosinophils (%) (Auto) 0.0 % Basophils (%) (Auto) 0.1 % Neutrophils # (Auto) 25.11 K/uL (1.4-6.5) Lymphocytes # (Auto) 0.77 K/uL (1.2-3.4) Monocytes # (Auto) 0.80 K/uL (0.11-0.59) Eosinophils # (Auto) 0.00 K/uL (0-0.5) Basophils # (Auto) 0.03 K/uL (0-0.2) RDW Standard Deviation 39.7 fL (36.4-46.3) RDW Coefficient of Variation 15.2 % (11.5-14.5) Immature Granulocyte % (Auto) 0.6 % Immature Granulocyte # (Auto) 0.17 K/uL (0.00-0.02) Nucleated RBC Absolute Count (auto) 0.07 K/uL (0-0) Nucleated Red Blood Cells % 0.3 % Hypersegmented Polys 1+ Microcytosis PRESENT Target Cells 1+ Prothrombin Time 12.7 SECONDS (9.0-12.0) Prothromb Time International Ratio 1.2 (0.9-1.1) Anion Gap 12.0 mmol/L (3-11) Est Creatinine Clear Calc Drug Dose 16.0 ml/min Estimated GFR () 15.7 Estimated GFR (Non- 13.6 BUN/Creatinine Ratio 30.9 (10-20) Calcium Level 8.2 mg/dl (8.5-10.1) Total Bilirubin 5.6 mg/dl (0.2-1) Direct Bilirubin 4.5 mg/dl (0-0.2) Aspartate Amino Transf (AST/SGOT) 155 U/L (15-37) Alanine Aminotransferase (ALT/SGPT) 342 U/L (12-78) Alkaline Phosphatase 404 U/L (45-117) Total Protein 6.4 gm/dl (6.4-8.2) Albumin 1.6 gm/dl (3.4-5.0) Allergies Coded Allergies: No Known Allergies (Unverified , 09/17/17) Medications Current Inpatient Medications Medications (Trade) Dose Ordered Sig/Candelaria Route Start Time Stop Time Status Last Admin Dose Admin Aspirin (Ecotrin Tab) 81 mg QAM PO 09/17/17 13:00 10/17/17 12:59 09/25/17 08:32 81 MG Al Hydrox/Mg Hydrox/Simethicone (Maalox Max Susp) 15 ml Q4H PRN PO 09/17/17 08:30 10/17/17 08:29 Lidocaine (Lidoderm Patch 5%) 1 patch QAM TD 09/18/17 09:00 10/18/17 08:59 09/25/17 08:33 1 PATCH Miscellaneous (Remove Lidoderm Patch) 1 ea DAILY@21 N/A 09/17/17 21:00 10/17/17 20:59 09/24/17 20:26 1 EA Metoprolol Tartrate (Lopressor Tab) 25 mg BID PO 09/18/17 21:00 10/18/17 20:59 09/25/17 08:32 25 MG Amlodipine Besylate (Norvasc Tab) 10 mg QAM PO 09/19/17 09:00 10/19/17 08:59 09/25/17 08:33 10 MG Miscellaneous Information (Consult) 1 ea UD PRN N/A 09/21/17 03:15 10/21/17 03:14 Methylprednisolone Sodium Succinate 40 mg/Syringe 0.64 ml @ 1.5 mls/min Q12H IV 09/21/17 04:00 10/21/17 03:59 09/25/17 05:01 1.5 MLS/MIN Guaifenesin (Organidin Nr Tab) 200 mg Q4H PO 09/21/17 04:00 10/21/17 03:59 09/25/17 08:32 200 MG Piperacillin Sod/ Tazobactam Sod 4.5 gm/Dextrose 120 ml @ 30 mls/hr Q12H IV 09/21/17 14:00 09/28/17 13:59 09/25/17 02:55 30 MLS/HR Tamsulosin HCl (Flomax Cap) 0.4 mg HS PO 09/21/17 21:00 10/21/17 20:59 09/24/17 20:26 0.4 MG Insulin Aspart (novoLOG ASPART) SLIDING SCALE G... ACHS SC 09/23/17 16:15 10/23/17 16:14 09/25/17 08:40 1 UNITS Impression (1) Acute renal failure (2) Hyperbilirubinemia (3) UTI (urinary tract infection) (4) Leukocytosis (5) Thrombocytopenia (6) Anemia (7) Gram-negative bacteremia Mr. Emmanuel is an inmate from [facility] admitted for evaluation of progressive symptoms of weakness, anorexia, nausea, abdominal discomfort and left hip pain. Clinical presentation consistent with severe sepsis. Blood and urine cultures have grown out dhaliwal sensitive E coli. Patient was treated with Zosyn. Medical history is notable for a BPH, urinary obstruction with chronic indwelling Vega as well as an elevated PSA. Initial evaluation is notable for SONY, hyperbilirubinemia (direct), hypoalbuminemia, thrombocytopenia, anemia and a marked leukocytosis. Peripheral smear was negative for hematologic malignancy or hemolytic anemia. Platelet count continues to fall. INR and PTT are slightly elevated. Fibrinogen is elevated which is not consistent with DIC and less consistent with chronic liver disease. 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 The kidneys are normal in appearance. There is no evidence of obstruction. Urine is turbid with gross hematuria. UA documented hematuria, proteinuria, pyuria. Urine and blood cultures are positive for pansensitive E. Coli. Liver is not cirrhotic appearing. RUQ US documented enlarged GB without obvious stone or obstruction. MRCP was negative Patient has had R hip pain. X-ray shows degenerative changes of the hip. No evidence of metastatic disease Recommendations SONY / ATN: -- Patient is in recovery phase of ATN. Creatinine has improved to 4.2. Azotemia is improved. Patient had brisk diuresis overnight. Electrolyte balance is acceptable. -- Metabolic acidosis remains relatively stable. 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 Heparin has been discontinued Elevated PSA/urinary obstruction: -- Vega to gravity -- Urology consultation reviewed. Patient had cancelled outpatient prostate biopsy. He is now being treated for prostatitis Elevated LFT's: -- LFT's mildly improved. GI monitoring. Elevated LFT likely related to sepsis. Patient now appears to be recovering
--- NOTE | 2017-09-25 11:58 | Progress Note ---
Subjective Date of Service: Sep 25, 2017. Subjective Pt evaluation today including: conversation w/ patient, physical exam, lab review, review of inpatient medication list Pain: no pain PO Intake: adequate Voiding: vega catheter in place breathing well, no pain, eating well labs reviewed, Cr down to 4.0, all LFT trending down, WBC still up at 26k repeat cultures negative Problem List Medical Problems: (1) Acute renal failure Status: Acute (2) Hyperbilirubinemia Status: Acute (3) Leukocytosis Status: Acute (4) UTI (urinary tract infection) Status: Acute Review of Systems Constitutional: + weakness, + fatigue All Other Systems: Reviewed and Negative Medications Current Inpatient Medications Medications (Trade) Dose Ordered Sig/Candelaria Route Start Time Stop Time Status Last Admin Dose Admin Aspirin (Ecotrin Tab) 81 mg QAM PO 09/17/17 13:00 10/17/17 12:59 09/25/17 08:32 81 MG Al Hydrox/Mg Hydrox/Simethicone (Maalox Max Susp) 15 ml Q4H PRN PO 09/17/17 08:30 10/17/17 08:29 Lidocaine (Lidoderm Patch 5%) 1 patch QAM TD 09/18/17 09:00 10/18/17 08:59 09/25/17 08:33 1 PATCH Miscellaneous (Remove Lidoderm Patch) 1 ea DAILY@21 N/A 09/17/17 21:00 10/17/17 20:59 09/24/17 20:26 1 EA Metoprolol Tartrate (Lopressor Tab) 25 mg BID PO 09/18/17 21:00 10/18/17 20:59 09/25/17 08:32 25 MG Amlodipine Besylate (Norvasc Tab) 10 mg QAM PO 09/19/17 09:00 10/19/17 08:59 09/25/17 08:33 10 MG Miscellaneous Information (Consult) 1 ea UD PRN N/A 09/21/17 03:15 10/21/17 03:14 Methylprednisolone Sodium Succinate 40 mg/Syringe 0.64 ml @ 1.5 mls/min Q12H IV 09/21/17 04:00 10/21/17 03:59 09/25/17 05:01 1.5 MLS/MIN Guaifenesin (Organidin Nr Tab) 200 mg Q4H PO 09/21/17 04:00 10/21/17 03:59 09/25/17 08:32 200 MG Piperacillin Sod/ Tazobactam Sod 4.5 gm/Dextrose 120 ml @ 30 mls/hr Q12H IV 09/21/17 14:00 09/28/17 13:59 09/25/17 02:55 30 MLS/HR Tamsulosin HCl (Flomax Cap) 0.4 mg HS PO 09/21/17 21:00 10/21/17 20:59 09/24/17 20:26 0.4 MG Insulin Aspart (novoLOG ASPART) SLIDING SCALE G... ACHS SC 09/23/17 16:15 10/23/17 16:14 09/25/17 08:40 1 UNITS Objective Vital Signs Date Time Temp Pulse Resp B/P (MAP) Pulse Ox O2 Delivery O2 Flow Rate FiO2 09/25/17 11:42 36.9 82 18 145/76 (99) 95 4.0 09/25/17 07:56 36.5 77 18 147/74 (98) 97 4.0 09/25/17 04:28 36.6 74 21 145/68 (93) 98 Oxymask 4.0 09/25/17 04:00 Oxymask 5.0 09/25/17 02:39 68 () 09/25/17 00:20 105 148/71 (96) 09/25/17 00:15 96 135/72 (93) 09/25/17 00:13 36.6 73 22 153/73 (99) 98 Oxymask 4.0 09/25/17 00:00 Oxymask 5.0 09/24/17 20:02 Oxymask 09/24/17 19:08 36.7 80 18 151/74 (99) 98 Oxymask 5.0 09/24/17 15:49 36.9 78 16 146/73 (97) 98 Oxymask 6.0 09/24/17 12:00 36.8 75 17 135/67 (89) 99 Oxymask 6.0 Physical Exam General Appearance: WD/WN, no apparent distress Eyes: normal inspection, EOMI, sclerae normal ENT: normal ENT inspection, hearing grossly normal, pharynx normal Neck: supple, no adenopathy, no JVD, trachea midline Respiratory/Chest: chest non-tender, lungs clear, normal breath sounds, no respiratory distress, no accessory muscle use Cardiovascular: regular rate, rhythm, no edema, no gallop, no JVD, no murmur Abdomen: normal bowel sounds, non tender, soft, no organomegaly Extremities: normal range of motion, non-tender, normal inspection, no pedal edema, no calf tenderness, pelvis stable 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, no motor/sensory deficits, alert, normal mood/affect, oriented x 3 Skin: warm/dry, no rash, + jaundice Lymphatic: no adenopathy Laboratory Results Last 24 Hours Test 09/24/17 16:22 09/24/17 20:05 09/25/17 07:28 09/25/17 11:31 Bedside Glucose 205 mg/dl 234 mg/dl 215 mg/dl White Blood Count 26.88 K/uL Red Blood Count 3.53 M/uL Hemoglobin 9.0 g/dL Hematocrit 25.7 % Mean Corpuscular Volume 72.8 fL Mean Corpuscular Hemoglobin 25.5 pg Mean Corpuscular Hemoglobin Concent 35.0 g/dl Platelet Count 412 K/uL Neutrophils (%) (Auto) 93.4 % Lymphocytes (%) (Auto) 2.9 % Monocytes (%) (Auto) 3.0 % Eosinophils (%) (Auto) 0.0 % Basophils (%) (Auto) 0.1 % Neutrophils # (Auto) 25.11 K/uL Lymphocytes # (Auto) 0.77 K/uL Monocytes # (Auto) 0.80 K/uL Eosinophils # (Auto) 0.00 K/uL Basophils # (Auto) 0.03 K/uL RDW Standard Deviation 39.7 fL RDW Coefficient of Variation 15.2 % Immature Granulocyte % (Auto) 0.6 % Immature Granulocyte # (Auto) 0.17 K/uL Nucleated RBC Absolute Count (auto) 0.07 K/uL Nucleated Red Blood Cells % 0.3 % Hypersegmented Polys 1+ Microcytosis PRESENT Target Cells 1+ Prothrombin Time 12.7 SECONDS Prothromb Time International Ratio 1.2 Sodium Level 148 mmol/L Potassium Level 3.9 mmol/L Chloride Level 115 mmol/L Carbon Dioxide Level 20 mmol/L Anion Gap 12.0 mmol/L Blood Urea Nitrogen 126 mg/dl Creatinine 4.06 mg/dl Est Creatinine Clear Calc Drug Dose 16.0 ml/min Estimated GFR () 15.7 Estimated GFR (Non- 13.6 BUN/Creatinine Ratio 30.9 Random Glucose 177 mg/dl Calcium Level 8.2 mg/dl Total Bilirubin 5.6 mg/dl Direct Bilirubin 4.5 mg/dl Aspartate Amino Transf (AST/SGOT) 155 U/L Alanine Aminotransferase (ALT/SGPT) 342 U/L Alkaline Phosphatase 404 U/L Total Protein 6.4 gm/dl Albumin 1.6 gm/dl Assessment and Plan UROSEPSIS with severe acute renal failure and metabolic acidosis in a 72 yo male with history of hypertension, BPH. - UTI with severe sepsis: blood cultures and urine culture grew pansensitive E coli continue Zosyn IV, will need 4-6 weeks total afebrile, WBC still high at 26k, was 25k yesterday blood culture from 09/21 growing pansensitive E coli repeat cultures from 09/23 show no growth at this point echo shows no vegetations CT chest: shows ARDS, no evidence of pneumonia, no septic emboli CT abdomen/pelvis: no abscess, no signs of infection Urology recommending 4-6 weeks total antibiotics due to suspected prostatitis US guided peripheral in for now, attempted PICC but no good veins, unsure of good plan for access Acute hypoxic respiratory failure, secondary to ARDS titrated off of High flow, stable on oxymask again today responded well to the Lasix on 09/21 try to wean oxygen as tolerated, appears to be recovering more each day, no distress at all - Metabolic acidosis with acute respiratory alkalosis due to severe sepsis, renal failure, improving today with AG 12 and bicarb 20 - SONY: likely ATN, improved for several days, today it is 4.0 some edema in legs, pitting, defer Lasix to nephrology - Hepatitis: liver enzymes all coming down today, bili is 5 GI following serology panel sent out, HIV, Hepatitis negative EBV positive but IgG suggesting prior infection MRCP essentially normal, liver US normal, no evidence of portal vein thrombosis may be a result of sepsis surgery signed off may require liver biopsy and transfer if he does not improve, but it appears that he is improving INR remains normal so liver still functioning at this point Thrombocytopenia: resolved, 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, stopped heparin HTN: Resumed metoprolol and amlodipine BPH and elevated PSA, h/o prostate nodule appreciate urology consultation, needs biopsy in the office in 2 weeks will have cystoscopy at that time as well needs 4-6 weeks of antibiotics leave vega in place bone scan 09/22 showed no suspicious lesions that would suggest metastatic disease Patient is LEVEL 5 CODE STATUS DVT: SCD GI PROTONIX tolerating diet likely here for another week for kidneys and liver to recover Continued [facility] stay due to: abnormal vital signs, voiding difficulties Discharge planning: uncertain
[2017-09-25] MEDS: TAMSULOSIN HCL 0.4 MG CAP PO SCH (19:40)
[2017-09-26] VITALS (9 sets, daily range): BP systolic 108–161; BP diastolic 50–81; PULSE 68–99; TEMP 36.4–37.1; O2SAT 93–96
[2017-09-26] MEDS: GUAIFENESIN 200 MG TAB PO SCH ×7 (00:17→23:27)
[2017-09-26] MEDS: PIPERACILL/TAZOBAC IV 4.5 GM in DEXTROSE 5% 100ML IV SCH ×2 (02:17→13:21)
[2017-09-26] MEDS: METHYLPREDNISOLONE IV 40 MG in SYRINGE 0 ML IV SCH (04:24)
[2017-09-26] MEDS: LIDODERM (LIDOCAINE) PATCH 5% TD SCH (08:44)
[2017-09-26] MEDS: AMLODIPINE BESYLATE 5 MG TAB PO SCH (08:44)
[2017-09-26] MEDS: ASPIRIN 81 MG ECTAB PO SCH (08:45)
[2017-09-26] MEDS: METOPROLOL TARTRATE 25 MG TAB PO SCH ×2 (08:45→20:44)
[2017-09-26] MEDS: INSULIN ASPART 100 UNITS/ML 3 ML PEN SC SCH ×4 (08:50→21:47)
[2017-09-26 10:15] LABS: CALCIUM 8.2 mg/dl (8.5-10.1); CREATININE 3.84 mg/dl (0.60-1.40); POTASSIUM 4.1 mmol/L (3.5-5.1)
--- NOTE | 2017-09-26 10:30 | Gastroenterology Progress Note ---
Progress Note Date of Service: Sep 26, 2017 Subjective Pt evaluation today including: conversation w/ patient, physical exam The patient notes having no abdominal discomfort this morning. No nausea or vomiting was noted overnight. Review of Systems Constitutional: + fatigue, No fever, No sweats Respiratory: No cough, No wheezing Abdomen: No pain, No diarrhea, No constipation, No dysphagia Medications Current Inpatient Medications Medications (Trade) Dose Ordered Sig/Candelaria Route Start Time Stop Time Status Last Admin Dose Admin Aspirin (Ecotrin Tab) 81 mg QAM PO 09/17/17 13:00 10/17/17 12:59 09/26/17 08:45 81 MG Al Hydrox/Mg Hydrox/Simethicone (Maalox Max Susp) 15 ml Q4H PRN PO 09/17/17 08:30 10/17/17 08:29 Lidocaine (Lidoderm Patch 5%) 1 patch QAM TD 09/18/17 09:00 10/18/17 08:59 09/26/17 08:44 1 PATCH Miscellaneous (Remove Lidoderm Patch) 1 ea DAILY@21 N/A 09/17/17 21:00 10/17/17 20:59 09/25/17 22:39 1 EA Metoprolol Tartrate (Lopressor Tab) 25 mg BID PO 09/18/17 21:00 10/18/17 20:59 09/26/17 08:45 25 MG Amlodipine Besylate (Norvasc Tab) 10 mg QAM PO 09/19/17 09:00 10/19/17 08:59 09/26/17 08:44 10 MG Miscellaneous Information (Consult) 1 ea UD PRN N/A 09/21/17 03:15 10/21/17 03:14 Guaifenesin (Organidin Nr Tab) 200 mg Q4H PO 09/21/17 04:00 10/21/17 03:59 09/26/17 08:45 200 MG Piperacillin Sod/ Tazobactam Sod 4.5 gm/Dextrose 120 ml @ 30 mls/hr Q12H IV 09/21/17 14:00 09/28/17 13:59 09/26/17 02:17 30 MLS/HR Tamsulosin HCl (Flomax Cap) 0.4 mg HS PO 09/21/17 21:00 10/21/17 20:59 09/25/17 19:40 0.4 MG Insulin Aspart (novoLOG ASPART) SLIDING SCALE G... ACHS SC 09/23/17 16:15 10/23/17 16:14 09/26/17 08:50 2 UNITS Prednisone (PredniSONE TAB) 40 mg QAM PO 09/26/17 09:00 10/26/17 08:59 09/26/17 08:56 40 MG Objective Vital Signs Date Time Temp Pulse Resp B/P (MAP) Pulse Ox O2 Delivery O2 Flow Rate FiO2 09/26/17 07:32 36.5 75 20 152/73 (99) 94 Room Air 09/26/17 04:16 36.5 81 17 161/76 (104) 96 Room Air 09/26/17 04:00 Oxymask 5.0 09/26/17 00:12 36.7 78 18 159/76 (103) 93 Room Air 09/26/17 00:00 Oxymask 5.0 09/25/17 19:25 36.7 76 18 149/72 (97) 98 Oxymask 3.5 09/25/17 16:04 36.5 78 20 154/74 (100) 100 Room Air 09/25/17 16:00 100 Room Air 4.0 Oxymask 09/25/17 12:00 94 Room Air 4.0 Oxymask 09/25/17 11:42 36.9 82 18 145/76 (99) 95 4.0 Physical Exam General Appearance: no apparent distress Neck: no JVD Respiratory/Chest: lungs clear Abdomen: soft Neurologic/Psych: oriented x 3 Skin: + jaundice Laboratory Results Last 24 Hours Test 09/25/17 11:31 09/25/17 16:40 09/25/17 21:00 09/26/17 04:44 Bedside Glucose 215 mg/dl 204 mg/dl 185 mg/dl Test 09/26/17 06:44 09/26/17 07:34 09/26/17 08:37 Bedside Glucose 146 mg/dl 207 mg/dl Sodium Level 150 mmol/L Potassium Level 4.1 mmol/L Chloride Level 115 mmol/L Carbon Dioxide Level 20 mmol/L Anion Gap 15.0 mmol/L Blood Urea Nitrogen 121 mg/dl Creatinine 3.84 mg/dl Est Creatinine Clear Calc Drug Dose 16.9 ml/min Estimated GFR () 16.8 Estimated GFR (Non- 14.5 BUN/Creatinine Ratio 31.5 Random Glucose 155 mg/dl Calcium Level 8.2 mg/dl Assessment and Plan Patient admitted with urosepsis found to have elevation of the liver associated enzymes. The patient was seen by several of my partners last week who thought that the liver test elevation was most likely related to a drug reaction. It appears that the bilirubin had improved yesterday however they are unable for review today. I would suggest continuing with daily liver enzymes and coagulation parameters as these could indicate worsening hepatic function. Recommendations Daily CMP and PT/INR
--- NOTE | 2017-09-26 11:21 | Nephrology Progress Note ---
Nephrology Progress Note Date of Service Sep 26, 2017. Chief Complaint SONY Subjective Mr. Emmanuel was seen & examined in the PCU this am. He reports that his breathing is improved. He is now breathing comfortably on room air and appears much less icteric. He voices no new medical concerns. Review of Systems Constitutional: No fever Cardiovascular: No chest pain Respiratory: No dyspnea at rest Extremities: No leg edema A complete review of systems was performed. Pertinent positives are noted above. All other systems are negative. Vital Signs Last 8 Hrs Date Time Temp Pulse Resp B/P (MAP) Pulse Ox O2 Delivery O2 Flow Rate FiO2 09/26/17 07:32 36.5 75 20 152/73 (99) 94 Room Air 09/26/17 04:16 36.5 81 17 161/76 (104) 96 Room Air 09/26/17 04:00 Oxymask 5.0 Last Recorded Weight Weight (Kilograms): 77.000 Physical Exam General Appearance: no apparent distress Head: normocephalic, atraumatic Eyes: PERRL, EOMI Neck: no adenopathy Respiratory/Chest: lungs clear, no respiratory distress Cardiovascular: regular rate, rhythm Abdomen/GI: normal bowel sounds, non tender, soft Extremities/Musculoskelatal: no calf tenderness, no pedal edema Neurologic/Psych: alert, oriented x 3 Social History Smokeless Tobacco Use: No Alcohol Use: none Drug Use: none 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) Laboratory Results Past 24 Hours 09/26/17 07:34 Test 09/25/17 11:31 09/25/17 16:40 09/25/17 21:00 09/26/17 04:44 Bedside Glucose 215 mg/dl (70-99) 204 mg/dl (70-99) 185 mg/dl (70-99) Test 09/26/17 06:44 09/26/17 07:34 09/26/17 08:37 09/26/17 10:29 Bedside Glucose 146 mg/dl (70-99) 207 mg/dl (70-99) Anion Gap 15.0 mmol/L (3-11) Est Creatinine Clear Calc Drug Dose 16.9 ml/min Estimated GFR () 16.8 Estimated GFR (Non- 14.5 BUN/Creatinine Ratio 31.5 (10-20) Calcium Level 8.2 mg/dl (8.5-10.1) Allergies Coded Allergies: No Known Allergies (Unverified , 09/17/17) Medications Current Inpatient Medications Medications (Trade) Dose Ordered Sig/Candelaria Route Start Time Stop Time Status Last Admin Dose Admin Aspirin (Ecotrin Tab) 81 mg QAM PO 09/17/17 13:00 10/17/17 12:59 09/26/17 08:45 81 MG Al Hydrox/Mg Hydrox/Simethicone (Maalox Max Susp) 15 ml Q4H PRN PO 09/17/17 08:30 10/17/17 08:29 Lidocaine (Lidoderm Patch 5%) 1 patch QAM TD 09/18/17 09:00 10/18/17 08:59 09/26/17 08:44 1 PATCH Miscellaneous (Remove Lidoderm Patch) 1 ea DAILY@21 N/A 09/17/17 21:00 10/17/17 20:59 09/25/17 22:39 1 EA Metoprolol Tartrate (Lopressor Tab) 25 mg BID PO 09/18/17 21:00 10/18/17 20:59 09/26/17 08:45 25 MG Amlodipine Besylate (Norvasc Tab) 10 mg QAM PO 09/19/17 09:00 10/19/17 08:59 09/26/17 08:44 10 MG Miscellaneous Information (Consult) 1 ea UD PRN N/A 09/21/17 03:15 10/21/17 03:14 Guaifenesin (Organidin Nr Tab) 200 mg Q4H PO 09/21/17 04:00 10/21/17 03:59 09/26/17 08:45 200 MG Piperacillin Sod/ Tazobactam Sod 4.5 gm/Dextrose 120 ml @ 30 mls/hr Q12H IV 09/21/17 14:00 09/28/17 13:59 09/26/17 02:17 30 MLS/HR Tamsulosin HCl (Flomax Cap) 0.4 mg HS PO 09/21/17 21:00 10/21/17 20:59 09/25/17 19:40 0.4 MG Insulin Aspart (novoLOG ASPART) SLIDING SCALE G... ACHS SC 09/23/17 16:15 3/10/18 16:14 09/26/17 08:50 2 UNITS Prednisone (PredniSONE TAB) 40 mg QAM PO 09/26/17 09:00 10/26/17 08:59 09/26/17 08:56 40 MG Impression (1) Acute renal failure (2) Hyperbilirubinemia (3) UTI (urinary tract infection) (4) Leukocytosis (5) Thrombocytopenia (6) Anemia (7) Gram-negative bacteremia Mr. Emmanuel is an inmate from [facility] admitted for evaluation of progressive symptoms of weakness, anorexia, nausea, abdominal discomfort and left hip pain. Clinical presentation consistent with severe sepsis. Blood and urine cultures have grown out dhaliwal sensitive E coli. Patient was treated with Zosyn. Medical history is notable for a BPH, urinary obstruction with chronic indwelling Hamm as well as an elevated PSA. Initial evaluation is notable for SONY, hyperbilirubinemia (direct), hypoalbuminemia, thrombocytopenia, anemia and a marked leukocytosis. Peripheral smear was negative for hematologic malignancy or hemolytic anemia. Platelet count continues to fall. INR and PTT are slightly elevated. Fibrinogen is elevated which is not consistent with DIC and less consistent with chronic liver disease. 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 The kidneys are normal in appearance. There is no evidence of obstruction. Urine is turbid with gross hematuria. UA documented hematuria, proteinuria, pyuria. Urine and blood cultures are positive for pansensitive E. Coli. Liver is not cirrhotic appearing. RUQ US documented enlarged GB without obvious stone or obstruction. MRCP was negative Patient has had R hip pain. X-ray shows degenerative changes of the hip. No evidence of metastatic disease Recommendations SONY / ATN: -- Patient is in recovery phase of ATN. Creatinine has improved to 3.8. Azotemia is improved. Patient had brisk diuresis overnight. Electrolyte balance is acceptable. -- Will provide hypotonic fluids and gentle hydration today due to progressive hypernatremia (serum sodium 150) -- Document I/O's Severe sepsis with gram negative bacteremia and pansensitive E coli UTI: -- Remains on Zosyn. Urology has recommended 6 weeks antibiotic therapy due to prostatitis Thrombocytopenia: -- HIT study was positive. Heparin has been discontinued. Platelet count has corrected. Elevated PSA/urinary obstruction: -- Hamm to gravity -- Urology consultation reviewed. Patient had cancelled outpatient prostate biopsy. He is now being treated for prostatitis Elevated LFT's: -- LFT's mildly improved. GI monitoring. Elevated LFT likely related to sepsis. Patient now appears to be recovering
[2017-09-26 11:39] LABS: HEMATOCRIT 27.2 % (42-52); HEMOGLOBIN 9.3 g/dL (14.0-18.0); MEAN CELL VOLUME 75.6 fL (80-100); MEAN CORPUSCULAR HEMOGLOBIN 25.8 pg (25-34); MEAN CORPUSCULAR HGB CONC 34.2 g/dl (32-36); PLATELET COUNT 529 K/uL (130-400); RED CELL DISTRIBUTION WIDTH CV 15.9 % (11.5-14.5); RED CELL DISTRIBUTION WIDTH SD 40.1 fL (36.4-46.3); WHITE BLOOD COUNT 27.61 K/uL (4.8-10.8)
[2017-09-26] MEDS ORDERED: SODIUM CHLORIDE 0.45% 1000ML 1,000 ML IV SCH (11:45)
[2017-09-26 11:54] LABS: ALBUMIN 1.7 gm/dl (3.4-5.0); TOTAL PROTEIN 6.5 gm/dl (6.4-8.2)
--- NOTE | 2017-09-26 16:29 | Progress Note ---
Subjective Date of Service: Sep 26, 2017. Subjective Pt evaluation today including: conversation w/ patient, physical exam, lab review, conversation w/ managing consultant clinical professor, review of inpatient medication list Pain: no pain PO Intake: adequate Voiding: vega catheter in place patient continues to improve today he is breathing comfortably on room air labs reviewed, Cr down to Problem List Medical Problems: (1) Acute renal failure Status: Acute (2) Hyperbilirubinemia Status: Acute (3) Leukocytosis Status: Acute (4) UTI (urinary tract infection) Status: Acute Review of Systems Constitutional: + weakness, + fatigue All Other Systems: Reviewed and Negative Medications Current Inpatient Medications Medications (Trade) Dose Ordered Sig/Candelaria Route Start Time Stop Time Status Last Admin Dose Admin Aspirin (Ecotrin Tab) 81 mg QAM PO 09/17/17 13:00 10/17/17 12:59 09/26/17 08:45 81 MG Al Hydrox/Mg Hydrox/Simethicone (Maalox Max Susp) 15 ml Q4H PRN PO 09/17/17 08:30 10/17/17 08:29 Lidocaine (Lidoderm Patch 5%) 1 patch QAM TD 09/18/17 09:00 10/18/17 08:59 09/26/17 08:44 1 PATCH Miscellaneous (Remove Lidoderm Patch) 1 ea DAILY@21 N/A 09/17/17 21:00 10/17/17 20:59 09/25/17 22:39 1 EA Metoprolol Tartrate (Lopressor Tab) 25 mg BID PO 09/18/17 21:00 10/18/17 20:59 09/26/17 08:45 25 MG Amlodipine Besylate (Norvasc Tab) 10 mg QAM PO 09/19/17 09:00 10/19/17 08:59 09/26/17 08:44 10 MG Miscellaneous Information (Consult) 1 ea UD PRN N/A 09/21/17 03:15 10/21/17 03:14 Guaifenesin (Organidin Nr Tab) 200 mg Q4H PO 09/21/17 04:00 10/21/17 03:59 09/26/17 12:11 200 MG Piperacillin Sod/ Tazobactam Sod 4.5 gm/Dextrose 120 ml @ 30 mls/hr Q12H IV 09/21/17 14:00 09/28/17 13:59 09/26/17 13:21 30 MLS/HR Tamsulosin HCl (Flomax Cap) 0.4 mg HS PO 09/21/17 21:00 10/21/17 20:59 09/25/17 19:40 0.4 MG Insulin Aspart (novoLOG ASPART) SLIDING SCALE G... ACHS SC 09/23/17 16:15 10/23/17 16:14 09/26/17 12:12 2 UNITS Prednisone (PredniSONE TAB) 40 mg QAM PO 09/26/17 09:00 10/26/17 08:59 09/26/17 08:56 40 MG Sodium Chloride 1,000 ml @ 100 mls/hr Q10H IV 09/26/17 11:45 09/26/17 21:44 09/26/17 12:19 100 MLS/HR Objective Vital Signs Date Time Temp Pulse Resp B/P (MAP) Pulse Ox O2 Delivery O2 Flow Rate FiO2 09/26/17 11:37 36.7 69 18 147/74 (98) 95 Room Air 09/26/17 07:32 36.5 75 20 152/73 (99) 94 Room Air 09/26/17 04:16 36.5 81 17 161/76 (104) 96 Room Air 09/26/17 04:00 Oxymask 5.0 09/26/17 00:12 36.7 78 18 159/76 (103) 93 Room Air 09/26/17 00:00 Oxymask 5.0 09/25/17 19:25 36.7 76 18 149/72 (97) 98 Oxymask 3.5 09/25/17 16:04 36.5 78 20 154/74 (100) 100 Room Air 09/25/17 16:00 100 Room Air 4.0 Oxymask Physical Exam General Appearance: WD/WN, no apparent distress Eyes: normal inspection, EOMI, sclerae normal ENT: normal ENT inspection, hearing grossly normal, pharynx normal Neck: supple, no adenopathy, no JVD, trachea midline Respiratory/Chest: chest non-tender, lungs clear, normal breath sounds, no respiratory distress, no accessory muscle use Cardiovascular: regular rate, rhythm, no edema, no gallop, no JVD, no murmur Abdomen: normal bowel sounds, non tender, soft, no organomegaly Extremities: normal range of motion, non-tender, normal inspection, no pedal edema, no calf tenderness, pelvis stable 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, no motor/sensory deficits, alert, normal mood/affect, oriented x 3 Skin: normal color, warm/dry, + jaundice Laboratory Results Last 24 Hours Test 09/25/17 16:40 09/25/17 21:00 09/26/17 06:44 09/26/17 07:34 Bedside Glucose 204 mg/dl 185 mg/dl 146 mg/dl White Blood Count 27.61 K/uL Red Blood Count 3.60 M/uL Hemoglobin 9.3 g/dL Hematocrit 27.2 % Mean Corpuscular Volume 75.6 fL Mean Corpuscular Hemoglobin 25.8 pg Mean Corpuscular Hemoglobin Concent 34.2 g/dl RDW Standard Deviation 40.1 fL RDW Coefficient of Variation 15.9 % Platelet Count 529 K/uL Sodium Level 150 mmol/L Potassium Level 4.1 mmol/L Chloride Level 115 mmol/L Carbon Dioxide Level 20 mmol/L Anion Gap 15.0 mmol/L Blood Urea Nitrogen 121 mg/dl Creatinine 3.84 mg/dl Est Creatinine Clear Calc Drug Dose 16.9 ml/min Estimated GFR () 16.8 Estimated GFR (Non- 14.5 BUN/Creatinine Ratio 31.5 Random Glucose 155 mg/dl Calcium Level 8.2 mg/dl Total Bilirubin 5.6 mg/dl Direct Bilirubin 4.4 mg/dl Aspartate Amino Transf (AST/SGOT) 369 U/L Alanine Aminotransferase (ALT/SGPT) 717 U/L Alkaline Phosphatase 495 U/L Total Protein 6.5 gm/dl Albumin 1.7 gm/dl Test 09/26/17 08:37 09/26/17 11:36 Bedside Glucose 207 mg/dl 202 mg/dl Assessment and Plan UROSEPSIS with severe acute renal failure and metabolic acidosis in a 72 yo male with history of hypertension, BPH. - UTI with severe sepsis: blood cultures and urine culture grew pansensitive E coli continue Zosyn IV, will need 4-6 weeks total afebrile, WBC still high at 27k, was 26k yesterday blood culture from 09/21 growing pansensitive E coli repeat cultures from 09/23 show no growth at this point, first set of cultures that are negative echo shows no vegetations CT chest: shows ARDS, no evidence of pneumonia, no septic emboli CT abdomen/pelvis: no abscess, no signs of infection Urology recommending 4-6 weeks total antibiotics due to suspected prostatitis US guided peripheral in for now, attempted PICC but no good veins, unsure of good plan for access Acute hypoxic respiratory failure, secondary to ARDS, due to sepsis titrated off of High flow, now on room air, breathing comfortably - Metabolic acidosis with acute respiratory alkalosis due to severe sepsis, renal failure, stable - SONY: likely ATN, improved for several days, Cr is 3.8 brisk diuresis yesterday with function recovering hypernatremia today, adding some free water - Hepatitis: liver enzymes continue to be elevated, Bili down slightly but transaminases rising again continue to follow, check INR which is normal GI following serology panel sent out, HIV, Hepatitis negative EBV positive but IgG suggesting prior infection MRCP essentially normal, liver US normal, no evidence of portal vein thrombosis may be a result of sepsis surgery signed off may require liver biopsy and transfer if he does not improve, but it appears that he is improving Thrombocytopenia: resolved, 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, stopped heparin HTN: Resumed metoprolol and amlodipine BPH and elevated PSA, h/o prostate nodule appreciate urology consultation, needs biopsy in the office in 2 weeks will have cystoscopy at that time as well needs 4-6 weeks of antibiotics leave vega in place bone scan 09/22 showed no suspicious lesions that would suggest metastatic disease Patient is LEVEL 5 CODE STATUS DVT: SCD GI PROTONIX tolerating diet transfer to medical floor today as breathing is stable and vitals stable Continued [facility] stay due to: abnormal vital signs, voiding difficulties Discharge planning: uncertain
[2017-09-26] MEDS: TAMSULOSIN HCL 0.4 MG CAP PO SCH (21:46)
[2017-09-27] MEDS: PIPERACILL/TAZOBAC IV 4.5 GM in DEXTROSE 5% 100ML IV SCH ×2 (01:55→14:36)
[2017-09-27] MEDS: GUAIFENESIN 200 MG TAB PO SCH ×6 (04:32→23:52)
[2017-09-27 07:19] VITALS: BP 158/72; PULSE 98; TEMP 36.8; O2SAT 96
[2017-09-27 08:00] VITALS: O2SAT 96
[2017-09-27 08:22] LABS: ALBUMIN 1.6 gm/dl (3.4-5.0); CALCIUM 7.9 mg/dl (8.5-10.1); CREATININE 3.41 mg/dl (0.60-1.40); POTASSIUM 3.5 mmol/L (3.5-5.1)
[2017-09-27 08:23] LABS: TOTAL PROTEIN 5.7 gm/dl (6.4-8.2)
[2017-09-27] MEDS: INSULIN ASPART 100 UNITS/ML 3 ML PEN SC SCH ×4 (08:37→22:08)
[2017-09-27] MEDS: LIDODERM (LIDOCAINE) PATCH 5% TD SCH (09:05)
[2017-09-27] MEDS: METOPROLOL TARTRATE 25 MG TAB PO SCH ×2 (09:06→21:55)
[2017-09-27] MEDS: ASPIRIN 81 MG ECTAB PO SCH (09:07)
[2017-09-27] MEDS: AMLODIPINE BESYLATE 5 MG TAB PO SCH (09:07)
--- NOTE | 2017-09-27 10:23 | Gastroenterology Progress Note ---
Progress Note Date of Service: Sep 27, 2017 Subjective Pt evaluation today including: conversation w/ patient, physical exam, chart review, lab review, review of studies, review of inpatient medication list Mr. Brett Emmanuel is a 72 yr old male with a hx of HTN, BPH who presented to the ED on for left hip pain, poor appetite and weakness. He was admitted for urosepsis. GI was consulted for elevated LFTs, present on admission T Bili 10.4 (today 4.2), D Bili 8.2 (today 3.4), AST 79 on admission (elevated to 369 yesterday and today is 342), ALT 56 (peaked at 767 yesterday and today is 582), Alk Phos 716 (today 431). INR has remained stable at 1.2. WBC is increasing, today 27. Regarding his symptoms, the appetite has improved. He feels stronger, but still fairly weak, able to turn himself and sit up in bed (slowly) with effort. He has not had any abdominal pain, nausea or vomiting. He has mild icterus. Work up thus far: Labs: Serology negative for: mono/EBV, parvovirus, HSV, HIV, Hep A/B/C. Immunology labs: MELANIE, AMA both negative and ASMA weakly positive at 1:20. Tox screen (-). Imaging: Non contrast CT abd/pelvis on 09/17 & 09/23 with normal liver and no biliary ductal dilation, unremarkable gallbladder. There was a mention of a bulbous pancreatic head on the second CT. Gallbladder US on 09/17 with trace fatty liver, perihepatic fluid and a diffusely thickened gallbladder wall at 6mm but no stones. MRCP on 09/19 with non specific retroperitoneal, peripancreatic and gerry- duodenal fluid. The liver appeared normal w/o biliary ductal dilation. Liver Doppler US 09/20 with patent portal and hepatic veins with normal directional flow. Review of Systems Constitutional: + weakness, No fever ENT: No hearing loss Respiratory: No cough Cardiac: No chest pain Abdomen: No pain, No nausea, No vomiting, No diarrhea, No constipation, No GI bleeding Male : + problem reported (with Hamm) Neuro: No memory loss Psych: No see HPI Heme: No abnormal bleeding/bruising Endo: + fatigue Skin: + problem reported (icterus), No rash Medications Current Inpatient Medications Medications (Trade) Dose Ordered Sig/Candelaria Route Start Time Stop Time Status Last Admin Dose Admin Aspirin (Ecotrin Tab) 81 mg QAM PO 09/17/17 13:00 10/17/17 12:59 09/27/17 09:07 81 MG Al Hydrox/Mg Hydrox/Simethicone (Maalox Max Susp) 15 ml Q4H PRN PO 09/17/17 08:30 10/17/17 08:29 Lidocaine (Lidoderm Patch 5%) 1 patch QAM TD 09/18/17 09:00 10/18/17 08:59 09/27/17 09:05 1 PATCH Miscellaneous (Remove Lidoderm Patch) 1 ea DAILY@21 N/A 09/17/17 21:00 10/17/17 20:59 09/26/17 20:44 1 EA Metoprolol Tartrate (Lopressor Tab) 25 mg BID PO 09/18/17 21:00 10/18/17 20:59 09/27/17 09:06 25 MG Amlodipine Besylate (Norvasc Tab) 10 mg QAM PO 09/19/17 09:00 10/19/17 08:59 09/27/17 09:07 10 MG Miscellaneous Information (Consult) 1 ea UD PRN N/A 09/21/17 03:15 10/21/17 03:14 Guaifenesin (Organidin Nr Tab) 200 mg Q4H PO 09/21/17 04:00 10/21/17 03:59 09/27/17 09:06 200 MG Piperacillin Sod/ Tazobactam Sod 4.5 gm/Dextrose 120 ml @ 30 mls/hr Q12H IV 09/21/17 14:00 09/28/17 13:59 09/27/17 01:55 30 MLS/HR Tamsulosin HCl (Flomax Cap) 0.4 mg HS PO 09/21/17 21:00 10/21/17 20:59 09/26/17 21:46 0.4 MG Insulin Aspart (novoLOG ASPART) SLIDING SCALE G... ACHS SC 09/23/17 16:15 10/23/17 16:14 09/26/17 21:47 1 UNITS Prednisone (PredniSONE TAB) 40 mg QAM PO 09/26/17 09:00 10/26/17 08:59 09/27/17 09:06 40 MG Objective Vital Signs Date Time Temp Pulse Resp B/P (MAP) Pulse Ox O2 Delivery O2 Flow Rate FiO2 09/27/17 07:19 36.8 98 20 158/72 (100) 96 Room Air 09/27/17 00:00 Room Air 09/26/17 23:20 36.4 68 18 144/73 (96) 96 Room Air 151/81 (104) 149/73 (98) 09/26/17 20:43 99 161/68 (99) 09/26/17 17:26 36.5 73 20 161/75 (103) 93 Room Air 09/26/17 17:25 36.7 76 18 96 5.0 09/26/17 17:25 Room Air 09/26/17 16:00 Room Air Oxymask 09/26/17 14:59 36.7 76 18 158/69 (98) 96 Room Air 09/26/17 12:00 Room Air Oxymask 09/26/17 11:37 36.7 69 18 147/74 (98) 95 Room Air Physical Exam General Appearance: no apparent distress ENT: pharynx normal Neck: supple, no JVD Respiratory/Chest: lungs clear Cardiovascular: regular rate, rhythm (HR at time of exam was 88/min, regular), no JVD, no murmur Abdomen: non tender, soft, no organomegaly Extremities: non-tender, no pedal edema Neurologic/Psych: alert, normal mood/affect, oriented x 3 Skin: + pertinent finding (; no obvious jaundice) Laboratory Results Last 24 Hours Test 09/26/17 11:36 09/26/17 16:40 09/26/17 20:14 09/27/17 07:18 Bedside Glucose 202 mg/dl 225 mg/dl 176 mg/dl Sodium Level 147 mmol/L Potassium Level 3.5 mmol/L Chloride Level 117 mmol/L Carbon Dioxide Level 16 mmol/L Anion Gap 14.0 mmol/L Blood Urea Nitrogen 113 mg/dl Creatinine 3.41 mg/dl Est Creatinine Clear Calc Drug Dose 19.0 ml/min Estimated GFR () 19.4 Estimated GFR (Non- 16.8 BUN/Creatinine Ratio 33.0 Random Glucose 117 mg/dl Calcium Level 7.9 mg/dl Total Bilirubin 4.2 mg/dl Direct Bilirubin 3.4 mg/dl Aspartate Amino Transf (AST/SGOT) 242 U/L Alanine Aminotransferase (ALT/SGPT) 582 U/L Alkaline Phosphatase 431 U/L Total Protein 5.7 gm/dl Albumin 1.6 gm/dl Test 09/27/17 07:39 Bedside Glucose 85 mg/dl Assessment and Plan Mr. Emmanuel is a 72 yr old male with urosepsis, improving. Elevated LFTs likely from the sepsis and bilirubin is improving; transaminases peaked yesterday and are improving today; INR is at upper level of normal and stable, this no evidence of liver failure. A thorough work up is negative for infectious hepatitis, obstruction, liver mass or liver vascular obstruction. Plan: Would continue tx of urosepsis and w/u of BPH (OP bx planned) and would continue to follow LFTs every few days. If LFTs increase again then would consider liver bx, but no plans for liver bx at this time. I have seen , examined and agree with the plan as outlined by PATRIA Lyle as above. -exam reveals soft abd -May have cholestasis of sepsis, ischemic hepatopathy, or DILI (on treatment with prednisone), serologies are normalizing. Continue to follow daily. If increases or plateaus then will need liver bx. -will follow
[2017-09-27] MEDS ORDERED: SODIUM CHLOR 0.45% + 20MEQ KCL 1,000 ML IV SCH (10:30)
--- NOTE | 2017-09-27 10:31 | Progress Note ---
Subjective Date of Service: Sep 27, 2017. Subjective Pt evaluation today including: conversation w/ patient Patient reports feeling well. He does not have any symptoms today. Problem List Medical Problems: (1) Acute renal failure Status: Acute (2) Hyperbilirubinemia Status: Acute (3) Leukocytosis Status: Acute (4) UTI (urinary tract infection) Status: Acute Review of Systems All Other Systems: Reviewed and Negative Medications Current Inpatient Medications Medications (Trade) Dose Ordered Sig/Candelaria Route Start Time Stop Time Status Last Admin Dose Admin Aspirin (Ecotrin Tab) 81 mg QAM PO 09/17/17 13:00 10/17/17 12:59 09/27/17 09:07 81 MG Al Hydrox/Mg Hydrox/Simethicone (Maalox Max Susp) 15 ml Q4H PRN PO 09/17/17 08:30 10/17/17 08:29 Lidocaine (Lidoderm Patch 5%) 1 patch QAM TD 09/18/17 09:00 10/18/17 08:59 09/27/17 09:05 1 PATCH Miscellaneous (Remove Lidoderm Patch) 1 ea DAILY@21 N/A 09/17/17 21:00 10/17/17 20:59 09/27/17 21:00 1 EA Metoprolol Tartrate (Lopressor Tab) 25 mg BID PO 09/18/17 21:00 10/18/17 20:59 09/27/17 21:55 25 MG Amlodipine Besylate (Norvasc Tab) 10 mg QAM PO 09/19/17 09:00 10/19/17 08:59 09/27/17 09:07 10 MG Miscellaneous Information (Consult) 1 ea UD PRN N/A 09/21/17 03:15 10/21/17 03:14 Guaifenesin (Organidin Nr Tab) 200 mg Q4H PO 09/21/17 04:00 10/21/17 03:59 09/28/17 04:22 200 MG Piperacillin Sod/ Tazobactam Sod 4.5 gm/Dextrose 120 ml @ 30 mls/hr Q12H IV 09/21/17 14:00 10/14/17 13:59 09/28/17 01:52 30 MLS/HR Tamsulosin HCl (Flomax Cap) 0.4 mg HS PO 2/6/18 21:00 10/21/17 20:59 09/27/17 21:56 0.4 MG Insulin Aspart (novoLOG ASPART) SLIDING SCALE G... ACHS SC 09/23/17 16:15 10/23/17 16:14 09/27/17 22:08 5 UNITS Prednisone (PredniSONE TAB) 40 mg QAM PO 09/26/17 09:00 10/26/17 08:59 09/27/17 09:06 40 MG Dextrose 1,000 ml @ 75 mls/hr [id number] IV 09/27/17 13:00 10/27/17 12:59 09/28/17 01:03 75 MLS/HR Sodium Bicarbonate (Sodium Bicarbonate Tab) 650 mg BID PO 09/27/17 20:00 10/27/17 19:59 09/27/17 21:56 650 MG Objective Vital Signs Date Time Temp Pulse Resp B/P (MAP) Pulse Ox O2 Delivery O2 Flow Rate FiO2 09/27/17 08:00 96 Room Air 09/27/17 07:19 36.8 98 20 158/72 (100) 96 Room Air 09/27/17 00:00 Room Air 09/26/17 23:20 36.4 68 18 144/73 (96) 96 Room Air 151/81 (104) 149/73 (98) 09/26/17 20:43 99 161/68 (99) 09/26/17 17:26 36.5 73 20 161/75 (103) 93 Room Air 09/26/17 17:25 36.7 76 18 96 5.0 09/26/17 17:25 Room Air 09/26/17 16:00 Room Air Oxymask 09/26/17 14:59 36.7 76 18 158/69 (98) 96 Room Air 09/26/17 12:00 Room Air Oxymask 09/26/17 11:37 36.7 69 18 147/74 (98) 95 Room Air Physical Exam Comments: General Appearance: WD/WN, no apparent distress Eyes: normal inspection, EOMI, sclerae normal ENT: normal ENT inspection, hearing grossly normal, pharynx normal Neck: supple, no adenopathy, no JVD, trachea midline Respiratory/Chest: chest non-tender, lungs clear, normal breath sounds, no respiratory distress, no accessory muscle use Cardiovascular: regular rate, rhythm, no edema, no gallop, no JVD, no murmur Abdomen: normal bowel sounds, non tender, soft, no organomegaly Extremities: normal range of motion, non-tender, normal inspection, no pedal edema, no calf tenderness, pelvis stable 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, no motor/sensory deficits, alert, normal mood/affect, oriented x 3 Skin: normal color, warm/dry, + jaundice Laboratory Results Last 24 Hours Test 09/26/17 11:36 09/26/17 16:40 09/26/17 20:14 09/27/17 07:18 Bedside Glucose 202 mg/dl 225 mg/dl 176 mg/dl Sodium Level 147 mmol/L Potassium Level 3.5 mmol/L Chloride Level 117 mmol/L Carbon Dioxide Level 16 mmol/L Anion Gap 14.0 mmol/L Blood Urea Nitrogen 113 mg/dl Creatinine 3.41 mg/dl Est Creatinine Clear Calc Drug Dose 19.0 ml/min Estimated GFR () 19.4 Estimated GFR (Non- 16.8 BUN/Creatinine Ratio 33.0 Random Glucose 117 mg/dl Calcium Level 7.9 mg/dl Total Bilirubin 4.2 mg/dl Direct Bilirubin 3.4 mg/dl Aspartate Amino Transf (AST/SGOT) 242 U/L Alanine Aminotransferase (ALT/SGPT) 582 U/L Alkaline Phosphatase 431 U/L Total Protein 5.7 gm/dl Albumin 1.6 gm/dl Test 09/27/17 07:39 Bedside Glucose 85 mg/dl Assessment and Plan UROSEPSIS with severe acute renal failure and metabolic acidosis in a 72 yo male with history of hypertension, BPH. - UTI with severe sepsis: blood cultures and urine culture grew pansensitive E coli continue Zosyn IV, will need 4-6 weeks total afebrile, WBC still high at 27k, blood culture from 09/21 growing pansensitive E coli repeat cultures from 09/23 show no growth at this point, first set of cultures that are negative echo shows no vegetations CT chest: shows ARDS, no evidence of pneumonia, no septic emboli CT abdomen/pelvis: no abscess, no signs of infection Urology recommending 4-6 weeks total antibiotics due to suspected prostatitis US guided peripheral in for now, attempted PICC but no good veins, unsure of good plan for access Acute hypoxic respiratory failure, secondary to ARDS, due to sepsis titrated off of High flow, now on room air, breathing comfortably - Metabolic acidosis with acute respiratory alkalosis due to severe sepsis, renal failure, stable - SONY: likely ATN, improved for several days, Cr is 3.8 brisk diuresis yesterday with function recovering added half normal saline due to hypernatremia. 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
--- NOTE | 2017-09-27 10:43 | Progress Note ---
Subjective Date of Service: Sep 27, 2017. Subjective Pt evaluation today including: conversation w/ patient, physical exam, chart review, lab review pt resting comfortably. tolerating abx, remains on zosyn 09/23 cultures negative to date x 2. afebrile. LFTS remain elevated but improving, bilirubin improving, less jaundiced. no f/c. no abd pain, no n/v/. denies cp, sob. for biopsy prostate post d/c. all remaining ros reviewed and are negative. Problem List Medical Problems: (1) Acute renal failure Status: Acute (2) Hyperbilirubinemia Status: Acute (3) Leukocytosis Status: Acute (4) UTI (urinary tract infection) Status: Acute Objective Vital Signs Date Time Temp Pulse Resp B/P (MAP) Pulse Ox O2 Delivery O2 Flow Rate FiO2 09/27/17 08:00 96 Room Air 09/27/17 07:19 36.8 98 20 158/72 (100) 96 Room Air 09/27/17 00:00 Room Air 09/26/17 23:20 36.4 68 18 144/73 (96) 96 Room Air 151/81 (104) 149/73 (98) 09/26/17 20:43 99 161/68 (99) 09/26/17 17:26 36.5 73 20 161/75 (103) 93 Room Air 09/26/17 17:25 36.7 76 18 96 5.0 09/26/17 17:25 Room Air 09/26/17 16:00 Room Air Oxymask 09/26/17 14:59 36.7 76 18 158/69 (98) 96 Room Air 09/26/17 12:00 Room Air Oxymask 09/26/17 11:37 36.7 69 18 147/74 (98) 95 Room Air Physical Exam General Appearance: WD/WN, no apparent distress Eyes: normal inspection, EOMI Neck: supple Respiratory/Chest: lungs clear, normal breath sounds, no respiratory distress Cardiovascular: regular rate, rhythm, no edema Abdomen: non tender, soft Extremities: non-tender, no pedal edema 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: alert, oriented x 3 Skin: + jaundice Laboratory Results Item Value Date Time Blood Culture - Final Complete 09/21/17 0817 Blood Escherichia Coli Blood Culture - Final Complete 09/21/17 0810 Blood Escherichia Coli Blood Culture - Final Complete 09/18/17 0847 Blood Escherichia Coli Blood Culture - Final Complete 09/17/17 0501 Blood Escherichia Coli Blood Culture - Final Complete 09/17/17 0405 Blood Escherichia Coli Urine Culture - Final Complete 09/17/17 0541 Urine,Catheterized Escherichia Coli Blood Culture - Preliminary Resulted 09/23/17 0526 Blood NO GROWTH TO DATE. Blood Culture - Preliminary Resulted 09/23/17 0442 Blood NO GROWTH TO DATE. Last 24 Hours Test 09/26/17 11:36 09/26/17 16:40 09/26/17 20:14 09/27/17 07:18 Bedside Glucose 202 mg/dl 225 mg/dl 176 mg/dl Sodium Level 147 mmol/L Potassium Level 3.5 mmol/L Chloride Level 117 mmol/L Carbon Dioxide Level 16 mmol/L Anion Gap 14.0 mmol/L Blood Urea Nitrogen 113 mg/dl Creatinine 3.41 mg/dl Est Creatinine Clear Calc Drug Dose 19.0 ml/min Estimated GFR () 19.4 Estimated GFR (Non- 16.8 BUN/Creatinine Ratio 33.0 Random Glucose 117 mg/dl Calcium Level 7.9 mg/dl Total Bilirubin 4.2 mg/dl Direct Bilirubin 3.4 mg/dl Aspartate Amino Transf (AST/SGOT) 242 U/L Alanine Aminotransferase (ALT/SGPT) 582 U/L Alkaline Phosphatase 431 U/L Total Protein 5.7 gm/dl Albumin 1.6 gm/dl Test 09/27/17 07:39 Bedside Glucose 85 mg/dl Assessment and Plan (1) Severe sepsis with acute organ dysfunction Assessment & Plan: persistent bacteremia on appropriate abx. repeat blood cultures now negatove/. repeat abd imaging negative for infection, echo negative as well. continue zosyn, follow cultures. will require prolonged course - suggest 4 weeks from first negative culture. (2) Leukocytosis (3) UTI (urinary tract infection) (4) Hyperbilirubinemia Continued [facility] stay due to: abnormal vital signs, voiding difficulties Discharge planning: uncertain
--- NOTE | 2017-09-27 12:31 | Nephrology Progress Note ---
Nephrology Progress Note Date of Service Sep 27, 2017. Chief Complaint Follow-up for acute kidney injury Subjective Brett was seen and examined in his room this morning. Overall he has been feeling better has been having breakfast, appetite decent. Renal function started to improve, creatinine improved to 3.4 this morning. Has been non- oliguric, blood pressure acceptable. Review of Systems A complete review of systems was performed. Pertinent positives are noted above. All other systems are negative. Vital Signs Last 8 Hrs Date Time Temp Pulse Resp B/P (MAP) Pulse Ox O2 Delivery O2 Flow Rate FiO2 09/27/17 07:19 36.8 98 20 158/72 (100) 96 Room Air Last Recorded Weight Weight (Kilograms): 77.000 Physical Exam GENERAL: elderly male, AAA x 3, pleasant, healthy-appearing, not in any distress. NECK: Supple, no JVD. RESPIRATORY: Normal breathing efforts, no accessory muscle use, clear to auscultation bilaterally, no wheezes or rales. CARDIOVASCULAR: S1, S2 normal, rate rhythm regular. EXTREMITY: No lower extremity edema NEURO: speech fluent. 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) Laboratory Results Past 24 Hours Test 09/26/17 08:37 09/26/17 11:36 09/26/17 16:40 09/26/17 20:14 Bedside Glucose 207 mg/dl (70-99) 202 mg/dl (70-99) 225 mg/dl (70-99) 176 mg/dl (70-99) Test 09/27/17 07:18 09/27/17 07:39 Bedside Glucose 85 mg/dl (70-99) Allergies Coded Allergies: No Known Allergies (Unverified , 09/17/17) Medications Current Inpatient Medications Medications (Trade) Dose Ordered Sig/Candelaria Route Start Time Stop Time Status Last Admin Dose Admin Aspirin (Ecotrin Tab) 81 mg QAM PO 09/17/17 13:00 10/17/17 12:59 09/26/17 08:45 81 MG Al Hydrox/Mg Hydrox/Simethicone (Maalox Max Susp) 15 ml Q4H PRN PO 09/17/17 08:30 10/17/17 08:29 Lidocaine (Lidoderm Patch 5%) 1 patch QAM TD 09/18/17 09:00 3/5/18 08:59 09/26/17 08:44 1 PATCH Miscellaneous (Remove Lidoderm Patch) 1 ea DAILY@21 N/A 09/17/17 21:00 10/17/17 20:59 09/26/17 20:44 1 EA Metoprolol Tartrate (Lopressor Tab) 25 mg BID PO 09/18/17 21:00 10/18/17 20:59 09/26/17 20:44 25 MG Amlodipine Besylate (Norvasc Tab) 10 mg QAM PO 09/19/17 09:00 10/19/17 08:59 09/26/17 08:44 10 MG Miscellaneous Information (Consult) 1 ea UD PRN N/A 09/21/17 03:15 10/21/17 03:14 Guaifenesin (Organidin Nr Tab) 200 mg Q4H PO 09/21/17 04:00 10/21/17 03:59 09/27/17 04:32 200 MG Piperacillin Sod/ Tazobactam Sod 4.5 gm/Dextrose 120 ml @ 30 mls/hr Q12H IV 09/21/17 14:00 09/28/17 13:59 09/27/17 01:55 30 MLS/HR Tamsulosin HCl (Flomax Cap) 0.4 mg HS PO 09/21/17 21:00 10/21/17 20:59 09/26/17 21:46 0.4 MG Insulin Aspart (novoLOG ASPART) SLIDING SCALE G... ACHS SC 09/23/17 16:15 10/23/17 16:14 09/26/17 21:47 1 UNITS Prednisone (PredniSONE TAB) 40 mg QAM PO 09/26/17 09:00 10/26/17 08:59 09/26/17 08:56 40 MG Impression (1) Acute renal failure (2) Hyperbilirubinemia (3) UTI (urinary tract infection) (4) Leukocytosis (5) Thrombocytopenia (6) Anemia (7) Gram-negative bacteremia Mr. Emmanuel is an inmate from [facility] admitted for evaluation of progressive symptoms of weakness, anorexia, nausea, abdominal discomfort and left hip pain. Clinical presentation consistent with severe sepsis. Blood and urine cultures have grown out dhaliwal sensitive E coli. Patient was treated with Zosyn. Medical history is notable for a BPH, urinary obstruction with chronic indwelling Hamm as well as an elevated PSA. Initial evaluation is notable for SONY, hyperbilirubinemia (direct), hypoalbuminemia, thrombocytopenia, anemia and a marked leukocytosis. Peripheral smear was negative for hematologic malignancy or hemolytic anemia. Platelet count continues to fall. INR and PTT are slightly elevated. Fibrinogen is elevated which is not consistent with DIC and less consistent with chronic liver disease. 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 The kidneys are normal in appearance. There is no evidence of obstruction. Urine is turbid with gross hematuria. UA documented hematuria, proteinuria, pyuria. Urine and blood cultures are positive for pansensitive E. Coli. Liver is not cirrhotic appearing. RUQ US documented enlarged GB without obvious stone or obstruction. MRCP was negative Patient has had R hip pain. X-ray shows degenerative changes of the hip. No evidence of metastatic disease Recommendations -- Patient is in recovery phase of ATN. Creatinine has improved to 3.4. Azotemia is improved. Patient had brisk diuresis overnight, net negative >1 L. Hypernatremia with free water clearance -- Will provide hypotonic fluids and gentle hydration --start on Na bicarbonate 650 mg BID -- Document I/O's -- Remains on Zosyn. Urology has recommended 6 weeks antibiotic therapy due to prostatitis
[2017-09-27] MEDS: DEXTROSE 5% 1000ML 1,000 ML IV SCH (14:36)
[2017-09-27 15:23] VITALS: BP 152/73; PULSE 82; TEMP 36.9; O2SAT 98
[2017-09-27] MEDS ORDERED: SODIUM BICARBONATE 650 MG TAB PO SCH (20:00)
[2017-09-27] MEDS: TAMSULOSIN HCL 0.4 MG CAP PO SCH (21:56)
[2017-09-27 23:50] VITALS: BP 167/72; PULSE 75; TEMP 36.4; O2SAT 98
[2017-09-28] MEDS: DEXTROSE 5% 1000ML 1,000 ML IV SCH ×2 (01:03→16:35)
[2017-09-28] MEDS: PIPERACILL/TAZOBAC IV 4.5 GM in DEXTROSE 5% 100ML IV SCH ×2 (01:52→14:11)
[2017-09-28] MEDS: GUAIFENESIN 200 MG TAB PO SCH ×5 (04:22→21:28)
[2017-09-28 07:18] VITALS: BP 147/74; PULSE 80; TEMP 36.6; O2SAT 97
[2017-09-28 08:00] VITALS: O2SAT 95
[2017-09-28] MEDS: INSULIN ASPART 100 UNITS/ML 3 ML PEN SC SCH ×4 (09:36→21:36)
[2017-09-28] MEDS: ASPIRIN 81 MG ECTAB PO SCH (09:37)
[2017-09-28] MEDS: AMLODIPINE BESYLATE 5 MG TAB PO SCH (09:37)
[2017-09-28] MEDS: LIDODERM (LIDOCAINE) PATCH 5% TD SCH (09:38)
[2017-09-28] MEDS: METOPROLOL TARTRATE 25 MG TAB PO SCH ×2 (09:38→21:28)
--- NOTE | 2017-09-28 10:14 | Nephrology Progress Note ---
Nephrology Progress Note Date of Service Sep 28, 2017. Chief Complaint Follow-up for acute kidney injury Subjective Mr. Emmanuel was seen and examined in his room this morning. Renal function continues to improve, creatinine was 3.4 this morning. Sodium still elevated 148. Has metabolic acidosis. Appetite has improved, denies any shortness of breath or chest pain. No episode of fever or chills. Review of Systems A complete review of systems was performed. Pertinent positives are noted above. All other systems are negative. Vital Signs Last 8 Hrs Date Time Temp Pulse Resp B/P (MAP) Pulse Ox O2 Delivery O2 Flow Rate FiO2 09/28/17 07:18 36.6 80 20 147/74 (98) 97 Room Air Last Recorded Weight Weight (Kilograms): 77.000 Physical Exam GENERAL: elderly male, AAA x 3, pleasant, not in any distress. NECK: Supple, no JVD. RESPIRATORY: Normal breathing efforts, no accessory muscle use, clear to auscultation bilaterally, no wheezes or rales. CARDIOVASCULAR: S1, S2 normal, rate rhythm regular. EXTREMITY: No lower extremity edema NEURO: speech fluent. 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) Laboratory Results Past 24 Hours Test 09/27/17 11:18 09/27/17 17:10 09/27/17 20:32 09/28/17 07:42 Bedside Glucose 147 mg/dl (70-99) 222 mg/dl (70-99) 296 mg/dl (70-99) 107 mg/dl (70-99) Allergies Coded Allergies: No Known Allergies (Unverified , 09/17/17) Medications Current Inpatient Medications Medications (Trade) Dose Ordered Sig/Candelaria Route Start Time Stop Time Status Last Admin Dose Admin Aspirin (Ecotrin Tab) 81 mg QAM PO 09/17/17 13:00 10/17/17 12:59 09/27/17 09:07 81 MG Al Hydrox/Mg Hydrox/Simethicone (Maalox Max Susp) 15 ml Q4H PRN PO 09/17/17 08:30 10/17/17 08:29 Lidocaine (Lidoderm Patch 5%) 1 patch QAM TD 09/18/17 09:00 10/18/17 08:59 09/27/17 09:05 1 PATCH Miscellaneous (Remove Lidoderm Patch) 1 ea DAILY@21 N/A 09/17/17 21:00 10/17/17 20:59 09/27/17 21:00 1 EA Metoprolol Tartrate (Lopressor Tab) 25 mg BID PO 09/18/17 21:00 10/18/17 20:59 09/27/17 21:55 25 MG Amlodipine Besylate (Norvasc Tab) 10 mg QAM PO 09/19/17 09:00 10/19/17 08:59 09/27/17 09:07 10 MG Miscellaneous Information (Consult) 1 ea UD PRN N/A 09/21/17 03:15 10/21/17 03:14 Guaifenesin (Organidin Nr Tab) 200 mg Q4H PO 09/21/17 04:00 10/21/17 03:59 09/28/17 04:22 200 MG Piperacillin Sod/ Tazobactam Sod 4.5 gm/Dextrose 120 ml @ 30 mls/hr Q12H IV 09/21/17 14:00 10/14/17 13:59 09/28/17 01:52 30 MLS/HR Tamsulosin HCl (Flomax Cap) 0.4 mg HS PO 09/21/17 21:00 10/21/17 20:59 09/27/17 21:56 0.4 MG Insulin Aspart (novoLOG ASPART) SLIDING SCALE G... ACHS SC 09/23/17 16:15 10/23/17 16:14 09/27/17 22:08 5 UNITS Prednisone (PredniSONE TAB) 40 mg QAM PO 09/26/17 09:00 10/26/17 08:59 09/27/17 09:06 40 MG Dextrose 1,000 ml @ 75 mls/hr [id number] IV 09/27/17 13:00 10/27/17 12:59 09/28/17 01:03 75 MLS/HR Sodium Bicarbonate (Sodium Bicarbonate Tab) 1,300 mg BID PO 09/28/17 20:00 10/27/17 19:59 UNV Impression (1) Acute renal failure (2) Hyperbilirubinemia (3) UTI (urinary tract infection) (4) Leukocytosis (5) Thrombocytopenia (6) Anemia (7) Gram-negative bacteremia Mr. Emmanuel is an inmate from [facility] admitted for evaluation of progressive symptoms of weakness, anorexia, nausea, abdominal discomfort and left hip pain. Clinical presentation consistent with severe sepsis. Blood and urine cultures have grown out dhaliwal sensitive E coli. Patient was treated with Zosyn. Medical history is notable for a BPH, urinary obstruction with chronic indwelling Hamm as well as an elevated PSA. Initial evaluation is notable for SONY, hyperbilirubinemia (direct), hypoalbuminemia, thrombocytopenia, anemia and a marked leukocytosis. Peripheral smear was negative for hematologic malignancy or hemolytic anemia. Platelet count continues to fall. INR and PTT are slightly elevated. Fibrinogen is elevated which is not consistent with DIC and less consistent with chronic liver disease. 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 The kidneys are normal in appearance. There is no evidence of obstruction. Urine is turbid with gross hematuria. UA documented hematuria, proteinuria, pyuria. Urine and blood cultures are positive for pansensitive E. Coli. Liver is not cirrhotic appearing. RUQ US documented enlarged GB without obvious stone or obstruction. MRCP was negative Patient has had R hip pain. X-ray shows degenerative changes of the hip. No evidence of metastatic disease Recommendations -- Patient is in recovery phase of ATN. Creatinine has improved to 3.4. Azotemia is improved. Continues to have decent urine output, net negative >1 L. Hypernatremia with free water clearance -- continue on D5W at 75 mL/hour -- increase Na bicarbonate to 1300 mg BID -- Document I/O's -- Remains on Zosyn. Urology has recommended 6 weeks antibiotic therapy due to prostatitis Will follow
[2017-09-28 11:14] LABS: ALBUMIN 1.6 gm/dl (3.4-5.0); CALCIUM 7.9 mg/dl (8.5-10.1); TOTAL PROTEIN 6.1 gm/dl (6.4-8.2)
[2017-09-28 11:15] LABS: CREATININE 3.14 mg/dl (0.60-1.40)
--- NOTE | 2017-09-28 11:53 | Gastroenterology Progress Note ---
Progress Note Date of Service: Sep 28, 2017 Subjective Pt evaluation today including: conversation w/ patient, physical exam, chart review, lab review, review of studies, review of inpatient medication list Mr. Brett Emmanuel is a 72 yr old male with a hx of HTN, BPH who presented to the ED on for left hip pain, poor appetite and weakness. He was admitted for urosepsis. GI was consulted for elevated LFTs, present on admission and all are improving: T Bili 10.4->3.7, direct bili 8.2 ->2.6, AST 79 -> 369-> 145. ALT 56 ->582 -> 444. Alk Phos 716 ->444. INR has remained stable at 1.2. Pt appears well and denies abdominal pain. Work up thus far: Labs: Serology negative for: mono/EBV, parvovirus, HSV, HIV, Hep A/B/C. Immunology labs: MELANIE, AMA both negative and ASMA weakly positive at 1:20. Tox screen (-). Imaging: Non contrast CT abd/pelvis on 09/17 & 09/23 with normal liver and no biliary ductal dilation, unremarkable gallbladder. There was a mention of a bulbous pancreatic head on the second CT. Gallbladder US on 09/17 with trace fatty liver, perihepatic fluid and a diffusely thickened gallbladder wall at 6mm but no stones. MRCP on 09/19 with non specific retroperitoneal, peripancreatic and gerry- duodenal fluid. The liver appeared normal w/o biliary ductal dilation. Liver Doppler US 09/20 with patent portal and hepatic veins with normal directional flow. Review of Systems Constitutional: No fever Eyes: No worsening of vision ENT: No hearing loss Respiratory: No cough Cardiac: No chest pain Abdomen: + pain (denies), No nausea, No vomiting, No diarrhea, No constipation , No GI bleeding, No dysphagia Male : No dysuria Neuro: No memory loss Psych: No depression symptoms Heme: No abnormal bleeding/bruising Endo: + fatigue (reports fatigue/weakness but appears well) Skin: No rash, No jaundice Medications Current Inpatient Medications Medications (Trade) Dose Ordered Sig/Candelaria Route Start Time Stop Time Status Last Admin Dose Admin Aspirin (Ecotrin Tab) 81 mg QAM PO 09/17/17 13:00 10/17/17 12:59 2/13/18 09:37 81 MG Al Hydrox/Mg Hydrox/Simethicone (Maalox Max Susp) 15 ml Q4H PRN PO 09/17/17 08:30 10/17/17 08:29 Lidocaine (Lidoderm Patch 5%) 1 patch QAM TD 09/18/17 09:00 10/18/17 08:59 09/28/17 09:38 1 PATCH Miscellaneous (Remove Lidoderm Patch) 1 ea DAILY@21 N/A 09/17/17 21:00 10/17/17 20:59 09/27/17 21:00 1 EA Metoprolol Tartrate (Lopressor Tab) 25 mg BID PO 09/18/17 21:00 10/18/17 20:59 09/28/17 09:38 25 MG Amlodipine Besylate (Norvasc Tab) 10 mg QAM PO 09/19/17 09:00 10/19/17 08:59 09/28/17 09:37 10 MG Miscellaneous Information (Consult) 1 ea UD PRN N/A 09/21/17 03:15 10/21/17 03:14 Guaifenesin (Organidin Nr Tab) 200 mg Q4H PO 09/21/17 04:00 10/21/17 03:59 09/28/17 09:37 200 MG Piperacillin Sod/ Tazobactam Sod 4.5 gm/Dextrose 120 ml @ 30 mls/hr Q12H IV 09/21/17 14:00 10/14/17 13:59 09/28/17 01:52 30 MLS/HR Tamsulosin HCl (Flomax Cap) 0.4 mg HS PO 09/21/17 21:00 10/21/17 20:59 09/27/17 21:56 0.4 MG Insulin Aspart (novoLOG ASPART) SLIDING SCALE G... ACHS SC 09/23/17 16:15 10/23/17 16:14 09/27/17 22:08 5 UNITS Prednisone (PredniSONE TAB) 40 mg QAM PO 09/26/17 09:00 10/26/17 08:59 09/28/17 09:37 40 MG Dextrose 1,000 ml @ 75 mls/hr [id number] IV 09/27/17 13:00 10/27/17 12:59 09/28/17 01:03 75 MLS/HR Sodium Bicarbonate (Sodium Bicarbonate Tab) 1,300 mg BID PO 09/28/17 20:00 10/27/17 19:59 Objective Vital Signs Date Time Temp Pulse Resp B/P (MAP) Pulse Ox O2 Delivery O2 Flow Rate FiO2 09/28/17 07:18 36.6 80 20 147/74 (98) 97 Room Air 09/28/17 00:00 Room Air 09/27/17 23:50 36.4 75 18 167/72 (103) 98 Room Air 09/27/17 16:00 Room Air 09/27/17 15:23 36.9 82 20 152/73 (99) 98 Room Air Physical Exam General Appearance: no apparent distress ENT: + pertinent finding (icterus has cleared) Neck: no JVD Respiratory/Chest: lungs clear Cardiovascular: regular rate, rhythm, no edema, no murmur Abdomen: non tender, soft Extremities: non-tender Neurologic/Psych: alert, normal mood/affect, oriented x 3 Skin: no jaundice Laboratory Results Last 24 Hours Test 09/27/17 11:18 09/27/17 17:10 09/27/17 20:32 09/28/17 07:42 Bedside Glucose 147 mg/dl 222 mg/dl 296 mg/dl 107 mg/dl Test 09/28/17 10:14 Assessment and Plan Mr. Emmanuel is a 72 yr old male with urosepsis, improving. Elevated LFTs likely from the sepsis and bilirubin is improving; transaminases peaked yesterday and are improving today; INR is at upper level of normal and stable, this no evidence of liver failure. A thorough work up is negative for infectious hepatitis, obstruction, liver mass or liver vascular obstruction. Plan: Would continue tx of urosepsis and w/u of BPH (OP bx planned) and would continue to follow LFTs every few days. If LFTs increase again then would consider liver bx, but no plans for liver bx at this time. I have seen , examined and agree with the plan as outlined by PATRIA Lyle as above. -exam reveals soft abd -Continue monitoring of LFT's -Add Coags to tomorrows labs
[2017-09-28 15:43] VITALS: BP 155/75; PULSE 78; TEMP 37.1; O2SAT 100
[2017-09-28 16:00] VITALS: O2SAT 100
[2017-09-28] MEDS: SODIUM BICARBONATE 650 MG TAB PO SCH (21:29)
[2017-09-28] MEDS: TAMSULOSIN HCL 0.4 MG CAP PO SCH (21:29)
[2017-09-28 23:15] VITALS: BP 159/73; PULSE 67; TEMP 36.4; O2SAT 99
[2017-09-29] VITALS (15 sets, daily range): BP systolic 135–166; BP diastolic 67–79; PULSE 57–94; TEMP 36.6–37.7; O2SAT 95–100
[2017-09-29] MEDS: GUAIFENESIN 200 MG TAB PO SCH ×7 (00:15→23:21)
[2017-09-29] MEDS: PIPERACILL/TAZOBAC IV 4.5 GM in DEXTROSE 5% 100ML IV SCH ×3 (02:02→22:06)
[2017-09-29] MEDS: DEXTROSE 5% 1000ML 1,000 ML IV SCH (05:13)
[2017-09-29 06:52] LABS: INR 1.1 (0.9-1.1)
[2017-09-29 07:21] LABS: HEMATOCRIT 19.4 % (42-52); HEMOGLOBIN 6.5 g/dL (14.0-18.0); MEAN CELL VOLUME 79.5 fL (80-100); MEAN CORPUSCULAR HEMOGLOBIN 26.6 pg (25-34); MEAN CORPUSCULAR HGB CONC 33.5 g/dl (32-36); MEAN PLATELET VOLUME 12.4 fL (7.4-10.4); NUCLEATED RED BLOOD CELL ABS 0.07 K/uL (0-0); PLATELET COUNT 446 K/uL (130-400); RED CELL DISTRIBUTION WIDTH CV 21.4 % (11.5-14.5); RED CELL DISTRIBUTION WIDTH SD 42.2 fL (36.4-46.3); WHITE BLOOD COUNT 16.39 K/uL (4.8-10.8)
[2017-09-29 07:25] LABS: ALBUMIN 1.5 gm/dl (3.4-5.0); CALCIUM 7.6 mg/dl (8.5-10.1); CREATININE 2.78 mg/dl (0.60-1.40); PHOSPHORUS 4.5 mg/dl (2.5-4.9); POTASSIUM 3.8 mmol/L (3.5-5.1)
[2017-09-29 07:28] LABS: TOTAL PROTEIN 5.2 gm/dl (6.4-8.2)
[2017-09-29] MEDS: INSULIN ASPART 100 UNITS/ML 3 ML PEN SC SCH ×4 (08:07→21:19)
[2017-09-29 08:29] LABS: HEMATOCRIT 19.8 % (42-52); HEMOGLOBIN 6.7 g/dL (14.0-18.0)
[2017-09-29] MEDS: METOPROLOL TARTRATE 50 MG TAB PO SCH ×2 (08:34→21:20)
[2017-09-29] MEDS: LIDODERM (LIDOCAINE) PATCH 5% TD SCH (08:35)
[2017-09-29] MEDS: ASPIRIN 81 MG ECTAB PO SCH (08:35)
[2017-09-29] MEDS: SODIUM BICARBONATE 650 MG TAB PO SCH ×2 (08:35→21:20)
[2017-09-29] MEDS: AMLODIPINE BESYLATE 5 MG TAB PO SCH (08:36)
--- NOTE | 2017-09-29 08:43 | Progress Note ---
Subjective Date of Service: Sep 28, 2017. Subjective Pt evaluation today including: conversation w/ patient Mr. Emmanuel reports feeling well today. He has no new complaints today. Problem List Medical Problems: (1) Acute renal failure Status: Acute (2) Hyperbilirubinemia Status: Acute (3) Leukocytosis Status: Acute (4) UTI (urinary tract infection) Status: Acute Review of Systems Constitutional: No fever, No chills ENT: No hearing loss, No unusual epistaxis Cardiac: No chest pain, No orthopnea Musculoskeletal: No joint pain Neurologic: No memory loss Psychiatric: No anhedonism Heme: No abnormal bleeding/bruising Endo: No fatigue All Other Systems: Reviewed and Negative Medications Current Inpatient Medications Medications (Trade) Dose Ordered Sig/Candelaria Route Start Time Stop Time Status Last Admin Dose Admin Aspirin (Ecotrin Tab) 81 mg QAM PO 09/17/17 13:00 10/17/17 12:59 09/29/17 08:35 81 MG Al Hydrox/Mg Hydrox/Simethicone (Maalox Max Susp) 15 ml Q4H PRN PO 09/17/17 08:30 10/17/17 08:29 Lidocaine (Lidoderm Patch 5%) 1 patch QAM TD 09/18/17 09:00 10/18/17 08:59 09/29/17 08:35 1 PATCH Miscellaneous (Remove Lidoderm Patch) 1 ea DAILY@21 N/A 09/17/17 21:00 10/17/17 20:59 09/28/17 21:29 1 EA Amlodipine Besylate (Norvasc Tab) 10 mg QAM PO 09/19/17 09:00 10/19/17 08:59 09/29/17 08:36 10 MG Miscellaneous Information (Consult) 1 ea UD PRN N/A 09/21/17 03:15 10/21/17 03:14 Guaifenesin (Organidin Nr Tab) 200 mg Q4H PO 09/21/17 04:00 10/21/17 03:59 09/29/17 08:35 200 MG Piperacillin Sod/ Tazobactam Sod 4.5 gm/Dextrose 120 ml @ 30 mls/hr Q12H IV 09/21/17 14:00 10/14/17 13:59 09/29/17 02:02 30 MLS/HR Tamsulosin HCl (Flomax Cap) 0.4 mg HS PO 09/21/17 21:00 10/21/17 20:59 09/28/17 21:29 0.4 MG Insulin Aspart (novoLOG ASPART) SLIDING SCALE G... ACHS SC 09/23/17 16:15 10/23/17 16:14 09/28/17 21:36 4 UNITS Prednisone (PredniSONE TAB) 40 mg QAM PO 09/26/17 09:00 10/26/17 08:59 09/29/17 08:36 40 MG Sodium Bicarbonate (Sodium Bicarbonate Tab) 1,300 mg BID PO 09/28/17 20:00 10/27/17 19:59 09/29/17 08:35 1,300 MG Metoprolol Tartrate (Lopressor Tab) 50 mg BID PO 09/29/17 08:00 10/18/17 20:59 09/29/17 08:34 50 MG Objective Vital Signs Date Time Temp Pulse Resp B/P (MAP) Pulse Ox O2 Delivery O2 Flow Rate FiO2 09/29/17 07:17 36.8 94 16 158/67 (97) 95 09/29/17 00:00 Room Air 09/28/17 23:15 36.4 67 18 159/73 (101) 99 Room Air 09/28/17 16:00 100 Room Air 09/28/17 15:43 37.1 78 18 155/75 (101) 100 Room Air Physical Exam Comments: General Appearance: WD/WN, no apparent distress Eyes: normal inspection, EOMI, sclerae normal ENT: normal ENT inspection, hearing grossly normal, pharynx normal Neck: supple, no adenopathy, no JVD, trachea midline Respiratory/Chest: chest non-tender, lungs clear, normal breath sounds, no respiratory distress, no accessory muscle use Cardiovascular: regular rate, rhythm, no edema, no gallop, no JVD, no murmur Abdomen: normal bowel sounds, non tender, soft, no organomegaly Extremities: normal range of motion, non-tender, normal inspection, no pedal edema, no calf tenderness, pelvis stable 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: 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 II-XII nml as tested, no motor/sensory deficits, alert, normal mood/affect, oriented x 3 Skin: normal color, warm/dry, + jaundice Laboratory Results Last 24 Hours Test 09/28/17 10:26 09/28/17 11:39 09/28/17 16:18 09/28/17 20:52 Sodium Level 143 mmol/L Potassium Level 4.0 mmol/L Chloride Level 115 mmol/L Carbon Dioxide Level 15 mmol/L Anion Gap 13.0 mmol/L Blood Urea Nitrogen 91 mg/dl Creatinine 3.14 mg/dl Est Creatinine Clear Calc Drug Dose 20.6 ml/min Estimated GFR () 21.5 Estimated GFR (Non- 18.5 BUN/Creatinine Ratio 29.1 Random Glucose 187 mg/dl Calcium Level 7.9 mg/dl Total Bilirubin 3.7 mg/dl Direct Bilirubin 2.6 mg/dl Aspartate Amino Transf (AST/SGOT) 145 U/L Alanine Aminotransferase (ALT/SGPT) 444 U/L Alkaline Phosphatase 464 U/L Total Protein 6.1 gm/dl Albumin 1.6 gm/dl Bedside Glucose 287 mg/dl 275 mg/dl Test 09/29/17 06:26 09/29/17 07:41 09/29/17 08:01 White Blood Count 16.39 K/uL Red Blood Count 2.44 M/uL Hemoglobin 6.5 g/dL 6.7 g/dL Hematocrit 19.4 % 19.8 % Mean Corpuscular Volume 79.5 fL Mean Corpuscular Hemoglobin 26.6 pg Mean Corpuscular Hemoglobin Concent 33.5 g/dl RDW Standard Deviation 42.2 fL RDW Coefficient of Variation 21.4 % Platelet Count 446 K/uL Mean Platelet Volume 12.4 fL Nucleated RBC Absolute Count (auto) 0.07 K/uL Nucleated Red Blood Cells % 0.4 % Prothrombin Time 11.4 SECONDS Prothromb Time International Ratio 1.1 Sodium Level 141 mmol/L Potassium Level 3.8 mmol/L Chloride Level 114 mmol/L Carbon Dioxide Level 17 mmol/L Anion Gap 11.0 mmol/L Blood Urea Nitrogen 74 mg/dl Creatinine 2.78 mg/dl Est Creatinine Clear Calc Drug Dose 23.3 ml/min Estimated GFR () 24.9 Estimated GFR (Non- 21.4 BUN/Creatinine Ratio 26.5 Random Glucose 140 mg/dl Calcium Level 7.6 mg/dl Phosphorus Level 4.5 mg/dl Iron Level 78 mcg/dl Total Iron Binding Capacity 190 mcg/dl Transferrin 158 mg/dl Transferrin % Saturation 35 % Ferritin 1085.5 ng/ml Total Bilirubin 2.7 mg/dl Direct Bilirubin 2.0 mg/dl Aspartate Amino Transf (AST/SGOT) 98 U/L Alanine Aminotransferase (ALT/SGPT) 355 U/L Alkaline Phosphatase 400 U/L Total Protein 5.2 gm/dl Albumin 1.5 gm/dl Bedside Glucose 147 mg/dl Assessment and Plan UROSEPSIS with severe acute renal failure and metabolic acidosis in a 72 yo male with history of hypertension, BPH. - UTI with severe sepsis: blood cultures and urine culture grew pansensitive E coli continue Zosyn IV, will need 4-6 weeks total afebrile, WBC still high at 27k, blood culture from 09/21 growing pansensitive E coli repeat cultures from 09/23 show no growth at this point, first set of cultures that are negative echo shows no vegetations CT chest: shows ARDS, no evidence of pneumonia, no septic emboli CT abdomen/pelvis: no abscess, no signs of infection Urology recommending 4-6 weeks total antibiotics due to suspected prostatitis US guided peripheral in for now, attempted PICC but no good veins, unsure of good plan for access Due to prolonged bacteremia, will require IV antibiotics for the total duration of her symptoms. Patient will obtain Midline today. Acute hypoxic respiratory failure, secondary to ARDS, due to sepsis titrated off of High flow, now on room air, breathing comfortably - Metabolic acidosis with acute respiratory alkalosis due to severe sepsis, renal failure, stable - SONY: likely ATN, improved for several days, Cr is 3.1 brisk diuresis yesterday with function recovering added half normal saline due to hypernatremia. - Hepatitis: liver enzymes continue to be elevated, Bili down slightly but transaminases rising again continue to follow, check INR which is normal GI following serology panel sent out, HIV, Hepatitis negative EBV positive but IgG suggesting prior infection MRCP essentially normal, liver US normal, no evidence of portal vein thrombosis may be a result of sepsis surgery signed off may require liver biopsy and transfer if he does not improve, but it appears that he is improving Thrombocytopenia: resolved, 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, stopped heparin HTN: Resumed metoprolol and amlodipine BPH and elevated PSA, h/o prostate nodule appreciate urology consultation, needs biopsy in the office in 2 weeks will have cystoscopy at that time as well needs 4-6 weeks of antibiotics leave vega in place bone scan 09/22 showed no suspicious lesions that would suggest metastatic disease Patient is LEVEL 5 CODE STATUS DVT: SCD GI PROTONIX tolerating diet Update: Patient did not have good venous access in his dominant right arm. Will not use left arm due to the fact that he may require dialysis in the future. Continued [facility] stay due to: abnormal vital signs, voiding difficulties Discharge planning: uncertain
--- NOTE | 2017-09-29 09:53 | Gastroenterology Progress Note ---
Progress Note Date of Service: Sep 29, 2017 Subjective Pt evaluation today including: conversation w/ patient, physical exam, chart review, lab review Pt was seen and evaluated, chart reviewed. H&H this AM 6.7. Pt has had black stools x 1 day. Three episodes yesterday, none today yet. Tells me otherwise he feels well. No abd pain, nausea, vomiting. No rectal pain, itching. He is not lightheaded or dizzy. No CP, SOB. T Bili 10.4->2.7, direct bili 8.2 ->2, AST 79 -> 369-> 98. ALT 56 ->582 -> 355. Alk Phos 716 ->400. INR has remained stable at 1.2. Pt appears well and denies abdominal pain. Labs: Serology negative for: mono/EBV, parvovirus, HSV, HIV, Hep A/B/C. Immunology labs: MELANIE, AMA both negative and ASMA weakly positive at 1:20. Tox screen (-). Imaging: Non contrast CT abd/pelvis on 09/17 & 09/23 with normal liver and no biliary ductal dilation, unremarkable gallbladder. There was a mention of a bulbous pancreatic head on the second CT. Gallbladder US on 09/17 with trace fatty liver, perihepatic fluid and a diffusely thickened gallbladder wall at 6mm but no stones. MRCP on 09/19 with non specific retroperitoneal, peripancreatic and gerry- duodenal fluid. The liver appeared normal w/o biliary ductal dilation. Liver Doppler US 09/20 with patent portal and hepatic veins with normal directional flow. 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), No hematuria Skin: No rash, No itch, No color change, No bleeding Medications Current Inpatient Medications Medications (Trade) Dose Ordered Sig/Candelaria Route Start Time Stop Time Status Last Admin Dose Admin Aspirin (Ecotrin Tab) 81 mg QAM PO 09/17/17 13:00 10/17/17 12:59 09/29/17 08:35 81 MG Al Hydrox/Mg Hydrox/Simethicone (Maalox Max Susp) 15 ml Q4H PRN PO 09/17/17 08:30 10/17/17 08:29 Lidocaine (Lidoderm Patch 5%) 1 patch QAM TD 09/18/17 09:00 10/18/17 08:59 09/29/17 08:35 1 PATCH Miscellaneous (Remove Lidoderm Patch) 1 ea DAILY@21 N/A 09/17/17 21:00 10/17/17 20:59 09/28/17 21:29 1 EA Amlodipine Besylate (Norvasc Tab) 10 mg QAM PO 09/19/17 09:00 10/19/17 08:59 09/29/17 08:36 10 MG Miscellaneous Information (Consult) 1 ea UD PRN N/A 09/21/17 03:15 10/21/17 03:14 Guaifenesin (Organidin Nr Tab) 200 mg Q4H PO 09/21/17 04:00 10/21/17 03:59 09/29/17 08:35 200 MG Piperacillin Sod/ Tazobactam Sod 4.5 gm/Dextrose 120 ml @ 30 mls/hr Q12H IV 09/21/17 14:00 10/14/17 13:59 09/29/17 02:02 30 MLS/HR Tamsulosin HCl (Flomax Cap) 0.4 mg HS PO 09/21/17 21:00 10/21/17 20:59 09/28/17 21:29 0.4 MG Insulin Aspart (novoLOG ASPART) SLIDING SCALE G... ACHS SC 09/23/17 16:15 10/23/17 16:14 09/28/17 21:36 4 UNITS Prednisone (PredniSONE TAB) 40 mg QAM PO 09/26/17 09:00 10/26/17 08:59 09/29/17 08:36 40 MG Sodium Bicarbonate (Sodium Bicarbonate Tab) 1,300 mg BID PO 09/28/17 20:00 10/27/17 19:59 09/29/17 08:35 1,300 MG Metoprolol Tartrate (Lopressor Tab) 50 mg BID PO 09/29/17 08:00 10/18/17 20:59 09/29/17 08:34 50 MG Objective Vital Signs Date Time Temp Pulse Resp B/P (MAP) Pulse Ox O2 Delivery O2 Flow Rate FiO2 09/29/17 07:17 36.8 94 16 158/67 (97) 95 09/29/17 00:00 Room Air 09/28/17 23:15 36.4 67 18 159/73 (101) 99 Room Air 09/28/17 16:00 100 Room Air 09/28/17 15:43 37.1 78 18 155/75 (101) 100 Room Air Physical Exam General Appearance: no apparent distress Eyes: PERRL ENT: hearing grossly normal, TMs normal Neck: supple Respiratory/Chest: lungs clear, normal breath sounds, no respiratory distress, no accessory muscle use Cardiovascular: regular rate, rhythm, no gallop, no JVD, no murmur Abdomen: normal bowel sounds, non tender, soft, no organomegaly, no pulsatile mass Extremities: non-tender Neurologic/Psych: alert, normal mood/affect, oriented x 3 Skin: normal color, warm/dry Laboratory Results Last 24 Hours Test 09/28/17 10:26 09/28/17 11:39 09/28/17 16:18 09/28/17 20:52 Sodium Level 143 mmol/L Potassium Level 4.0 mmol/L Chloride Level 115 mmol/L Carbon Dioxide Level 15 mmol/L Anion Gap 13.0 mmol/L Blood Urea Nitrogen 91 mg/dl Creatinine 3.14 mg/dl Est Creatinine Clear Calc Drug Dose 20.6 ml/min Estimated GFR () 21.5 Estimated GFR (Non- 18.5 BUN/Creatinine Ratio 29.1 Random Glucose 187 mg/dl Calcium Level 7.9 mg/dl Total Bilirubin 3.7 mg/dl Direct Bilirubin 2.6 mg/dl Aspartate Amino Transf (AST/SGOT) 145 U/L Alanine Aminotransferase (ALT/SGPT) 444 U/L Alkaline Phosphatase 464 U/L Total Protein 6.1 gm/dl Albumin 1.6 gm/dl Bedside Glucose 287 mg/dl 275 mg/dl Test 09/29/17 06:26 09/29/17 07:41 09/29/17 08:01 White Blood Count 16.39 K/uL Red Blood Count 2.44 M/uL Hemoglobin 6.5 g/dL 6.7 g/dL Hematocrit 19.4 % 19.8 % Mean Corpuscular Volume 79.5 fL Mean Corpuscular Hemoglobin 26.6 pg Mean Corpuscular Hemoglobin Concent 33.5 g/dl RDW Standard Deviation 42.2 fL RDW Coefficient of Variation 21.4 % Platelet Count 446 K/uL Mean Platelet Volume 12.4 fL Nucleated RBC Absolute Count (auto) 0.07 K/uL Nucleated Red Blood Cells % 0.4 % Prothrombin Time 11.4 SECONDS Prothromb Time International Ratio 1.1 Sodium Level 141 mmol/L Potassium Level 3.8 mmol/L Chloride Level 114 mmol/L Carbon Dioxide Level 17 mmol/L Anion Gap 11.0 mmol/L Blood Urea Nitrogen 74 mg/dl Creatinine 2.78 mg/dl Est Creatinine Clear Calc Drug Dose 23.3 ml/min Estimated GFR () 24.9 Estimated GFR (Non- 21.4 BUN/Creatinine Ratio 26.5 Random Glucose 140 mg/dl Calcium Level 7.6 mg/dl Phosphorus Level 4.5 mg/dl Iron Level 78 mcg/dl Total Iron Binding Capacity 190 mcg/dl Transferrin 158 mg/dl Transferrin % Saturation 35 % Ferritin 1085.5 ng/ml Total Bilirubin 2.7 mg/dl Direct Bilirubin 2.0 mg/dl Aspartate Amino Transf (AST/SGOT) 98 U/L Alanine Aminotransferase (ALT/SGPT) 355 U/L Alkaline Phosphatase 400 U/L Total Protein 5.2 gm/dl Albumin 1.5 gm/dl Bedside Glucose 147 mg/dl Assessment and Plan Mr. Emmanuel is a 72 yr old male with urosepsis, improving. Elevated LFTs likely from the sepsis and bilirubin is improving; transaminases peaked yesterday and are improving today; INR is at upper level of normal and stable, this no evidence of liver failure. A thorough work up is negative for infectious hepatitis, obstruction, liver mass or liver vascular obstruction. He had 3 episodes of black, loose stools yesterday, HGB this AM 6.5 Trend H&H Transfuse PRN Monitor stools IV PPI NPO after midnight Would continue tx of urosepsis and w/u of BPH Continue to follow LFTs every few days If LFTs increase again then would consider liver bx, but no plans for liver bx at this time. GI to follow, please call with any questions or concerns I have seen , examined and agree with the plan as outlined by PATRIA Muse as above. -exam reveals soft abd -Now has melena, no hemodynamic changes, Plan for EGD in the AM
[2017-09-29] MEDS ORDERED: PANTOprazole INJ 80 MG in DEXTROSE 5% 100ML IV ONE (10:30)
--- NOTE | 2017-09-29 11:16 | Progress Note ---
Subjective Date of Service: Sep 29, 2017. Subjective Pt evaluation today including: conversation w/ patient, physical exam Patient reports feeling well. However, he had multiple episodes of dark stools today. Nurse called me and let me know that his hemoglobin was low in the 6. Problem List Medical Problems: (1) Acute renal failure Status: Acute (2) Hyperbilirubinemia Status: Acute (3) Leukocytosis Status: Acute (4) UTI (urinary tract infection) Status: Acute Review of Systems Constitutional: No fever, No chills ENT: No hearing loss Respiratory: No cough Cardiac: No chest pain Abdomen: No pain, No nausea Musculoskeletal: No joint pain Neurologic: No memory loss Psychiatric: No depression symptoms Endo: No fatigue Skin: No rash All Other Systems: Reviewed and Negative Medications Current Inpatient Medications Medications (Trade) Dose Ordered Sig/Candelaria Route Start Time Stop Time Status Last Admin Dose Admin Aspirin (Ecotrin Tab) 81 mg QAM PO 09/17/17 13:00 10/17/17 12:59 09/29/17 08:35 81 MG Al Hydrox/Mg Hydrox/Simethicone (Maalox Max Susp) 15 ml Q4H PRN PO 09/17/17 08:30 10/17/17 08:29 Lidocaine (Lidoderm Patch 5%) 1 patch QAM TD 09/18/17 09:00 10/18/17 08:59 09/29/17 08:35 1 PATCH Miscellaneous (Remove Lidoderm Patch) 1 ea DAILY@21 N/A 09/17/17 21:00 10/17/17 20:59 09/29/17 21:20 1 EA Amlodipine Besylate (Norvasc Tab) 10 mg QAM PO 09/19/17 09:00 10/19/17 08:59 09/29/17 08:36 10 MG Miscellaneous Information (Consult) 1 ea UD PRN N/A 09/21/17 03:15 10/21/17 03:14 Guaifenesin (Organidin Nr Tab) 200 mg Q4H PO 09/21/17 04:00 10/21/17 03:59 09/30/17 03:39 200 MG Tamsulosin HCl (Flomax Cap) 0.4 mg HS PO 09/21/17 21:00 10/21/17 20:59 09/29/17 21:21 0.4 MG Insulin Aspart (novoLOG ASPART) SLIDING SCALE G... ACHS SC 09/23/17 16:15 10/23/17 16:14 09/29/17 21:19 1 UNITS Sodium Bicarbonate (Sodium Bicarbonate Tab) 1,300 mg BID PO 09/28/17 20:00 10/27/17 19:59 09/29/17 21:20 1,300 MG Metoprolol Tartrate (Lopressor Tab) 50 mg BID PO 09/29/17 08:00 10/18/17 20:59 09/29/17 21:20 50 MG Pantoprazole Sodium 40 mg/ Dextrose 100 ml @ 20 mls/hr Q5H IV 09/29/17 10:45 10/29/17 10:44 09/30/17 06:03 20 MLS/HR Piperacillin Sod/ Tazobactam Sod 4.5 gm/Dextrose 120 ml @ 30 mls/hr Q8H IV 09/29/17 22:00 10/14/17 13:59 09/30/17 05:30 30 MLS/HR Prednisone (PredniSONE TAB) 30 mg DAILY PO 09/30/17 12:00 10/30/17 11:59 Objective Vital Signs Date Time Temp Pulse Resp B/P (MAP) Pulse Ox O2 Delivery O2 Flow Rate FiO2 09/29/17 10:40 36.7 79 16 161/77 09/29/17 10:25 36.8 57 16 154/75 09/29/17 10:06 36.8 57 16 166/72 09/29/17 08:00 95 Room Air 09/29/17 07:17 36.8 94 16 158/67 (97) 95 09/29/17 00:00 Room Air 09/28/17 23:15 36.4 67 18 159/73 (101) 99 Room Air 09/28/17 16:00 100 Room Air 09/28/17 15:43 37.1 78 18 155/75 (101) 100 Room Air Physical Exam Comments: General Appearance: WD/WN, no apparent distress Eyes: normal inspection, EOMI, sclerae normal ENT: normal ENT inspection, hearing grossly normal, pharynx normal Neck: supple, no adenopathy, no JVD, trachea midline Respiratory/Chest: chest non-tender, lungs clear, normal breath sounds, no respiratory distress, no accessory muscle use Cardiovascular: regular rate, rhythm, no edema, no gallop, no JVD, no murmur Abdomen: normal bowel sounds, non tender, soft, no organomegaly Extremities: normal range of motion, non-tender, normal inspection, no pedal edema, no calf tenderness, pelvis stable 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, no motor/sensory deficits, alert, normal mood/affect, oriented x 3 Skin: normal color, warm/dry, + jaundice Laboratory Results Last 24 Hours Test 09/28/17 11:39 09/28/17 16:18 09/28/17 20:52 09/29/17 06:26 Bedside Glucose 287 mg/dl 275 mg/dl White Blood Count 16.39 K/uL Red Blood Count 2.44 M/uL Hemoglobin 6.5 g/dL Hematocrit 19.4 % Mean Corpuscular Volume 79.5 fL Mean Corpuscular Hemoglobin 26.6 pg Mean Corpuscular Hemoglobin Concent 33.5 g/dl RDW Standard Deviation 42.2 fL RDW Coefficient of Variation 21.4 % Platelet Count 446 K/uL Mean Platelet Volume 12.4 fL Nucleated RBC Absolute Count (auto) 0.07 K/uL Nucleated Red Blood Cells % 0.4 % Prothrombin Time 11.4 SECONDS Prothromb Time International Ratio 1.1 Sodium Level 141 mmol/L Potassium Level 3.8 mmol/L Chloride Level 114 mmol/L Carbon Dioxide Level 17 mmol/L Anion Gap 11.0 mmol/L Blood Urea Nitrogen 74 mg/dl Creatinine 2.78 mg/dl Est Creatinine Clear Calc Drug Dose 23.3 ml/min Estimated GFR () 24.9 Estimated GFR (Non- 21.4 BUN/Creatinine Ratio 26.5 Random Glucose 140 mg/dl Calcium Level 7.6 mg/dl Phosphorus Level 4.5 mg/dl Iron Level 78 mcg/dl Total Iron Binding Capacity 190 mcg/dl Transferrin 158 mg/dl Transferrin % Saturation 35 % Ferritin 1085.5 ng/ml Total Bilirubin 2.7 mg/dl Direct Bilirubin 2.0 mg/dl Aspartate Amino Transf (AST/SGOT) 98 U/L Alanine Aminotransferase (ALT/SGPT) 355 U/L Alkaline Phosphatase 400 U/L Total Protein 5.2 gm/dl Albumin 1.5 gm/dl Test 09/29/17 07:41 09/29/17 08:01 Bedside Glucose 147 mg/dl Hemoglobin 6.7 g/dL Hematocrit 19.8 % Assessment and Plan UROSEPSIS with severe acute renal failure and metabolic acidosis in a 72 yo male with history of hypertension, BPH. - UTI with severe sepsis: blood cultures and urine culture grew pansensitive E coli continue Zosyn IV, will need 4-6 weeks total afebrile, WBC still high at 27k, blood culture from 09/21 growing pansensitive E coli repeat cultures from 09/23 show no growth at this point, first set of cultures that are negative echo shows no vegetations CT chest: shows ARDS, no evidence of pneumonia, no septic emboli CT abdomen/pelvis: no abscess, no signs of infection Urology recommending 4-6 weeks total antibiotics due to suspected prostatitis US guided peripheral in for now, attempted PICC but no good veins, unsure of good plan for access Due to prolonged bacteremia, will require IV antibiotics for the total duration of her symptoms. Unable to obtain Midline. Patient will use peripheral u/s guided lines. Anemia from upper gi bleed Will have Upper endoscopy in AM Ordered 2 PRBC. will recheck hemoglobin later today Acute hypoxic respiratory failure, secondary to ARDS, due to sepsis titrated off of High flow, now on room air, breathing comfortably - Metabolic acidosis with acute respiratory alkalosis due to severe sepsis, renal failure, stable - SONY: likely ATN, improved for several days, Cr is 3.1 brisk diuresis yesterday with function recovering added half normal saline due to hypernatremia. 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 Continued [facility] stay due to: abnormal vital signs, voiding difficulties Discharge planning: uncertain
--- NOTE | 2017-09-29 11:56 | Nephrology Progress Note ---
Nephrology Progress Note Date of Service Sep 29, 2017. Chief Complaint Follow-up for acute kidney injury Subjective Mr. Emmanuel was seen and examined in his room this morning. Renal function continues to improve, creatinine 2.8 this morning, electrolyte acceptable. Blood pressure fair, urine output decent. Denies shortness of breath or chest pain. Has been having several episodes of dark stool, hemoglobin dropped to 6.7 from above 9 yesterday. Review of Systems A complete review of systems was performed. Pertinent positives are noted above. All other systems are negative. Vital Signs Last 8 Hrs Date Time Temp Pulse Resp B/P (MAP) Pulse Ox O2 Delivery O2 Flow Rate FiO2 09/29/17 07:17 36.8 94 16 158/67 (97) 95 Last Recorded Weight Weight (Kilograms): 77.000 Physical Exam GENERAL: elderly male, AAA x 3, pleasant, not in any distress. NECK: Supple, no JVD. RESPIRATORY: Normal breathing efforts, no accessory muscle use, clear to auscultation bilaterally, no wheezes or rales. CARDIOVASCULAR: S1, S2 normal, rate rhythm regular. EXTREMITY: No lower extremity edema NEURO: speech fluent. 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) Laboratory Results Past 24 Hours 09/29/17 06:26 09/29/17 08:01 09/28/17 10:26 09/29/17 06:26 Test 09/28/17 10:26 09/28/17 11:39 09/28/17 16:18 09/28/17 20:52 Anion Gap 13.0 mmol/L (3-11) Est Creatinine Clear Calc Drug Dose 20.6 ml/min Estimated GFR () 21.5 Estimated GFR (Non- 18.5 BUN/Creatinine Ratio 29.1 (10-20) Calcium Level 7.9 mg/dl (8.5-10.1) Total Bilirubin 3.7 mg/dl (0.2-1) Direct Bilirubin 2.6 mg/dl (0-0.2) Aspartate Amino Transf (AST/SGOT) 145 U/L (15-37) Alanine Aminotransferase (ALT/SGPT) 444 U/L (12-78) Alkaline Phosphatase 464 U/L (45-117) Total Protein 6.1 gm/dl (6.4-8.2) Albumin 1.6 gm/dl (3.4-5.0) Bedside Glucose 287 mg/dl (70-99) 275 mg/dl (70-99) Test 09/29/17 06:26 09/29/17 07:41 Red Blood Count 2.44 M/uL (4.7-6.1) Mean Corpuscular Volume 79.5 fL (80-100) Mean Corpuscular Hemoglobin 26.6 pg (25-34) Mean Corpuscular Hemoglobin Concent 33.5 g/dl (32-36) RDW Standard Deviation 42.2 fL (36.4-46.3) RDW Coefficient of Variation 21.4 % (11.5-14.5) Mean Platelet Volume 12.4 fL (7.4-10.4) Nucleated RBC Absolute Count (auto) 0.07 K/uL (0-0) Nucleated Red Blood Cells % 0.4 % Prothrombin Time 11.4 SECONDS (9.0-12.0) Prothromb Time International Ratio 1.1 (0.9-1.1) Anion Gap 11.0 mmol/L (3-11) Est Creatinine Clear Calc Drug Dose 23.3 ml/min Estimated GFR () 24.9 Estimated GFR (Non- 21.4 BUN/Creatinine Ratio 26.5 (10-20) Calcium Level 7.6 mg/dl (8.5-10.1) Phosphorus Level 4.5 mg/dl (2.5-4.9) Iron Level 78 mcg/dl (35-175) Total Iron Binding Capacity 190 mcg/dl (250-450) Transferrin 158 mg/dl (200-360) Transferrin % Saturation 35 % (20-50) Ferritin 1085.5 ng/ml (8.0-388.0) Total Bilirubin 2.7 mg/dl (0.2-1) Direct Bilirubin 2.0 mg/dl (0-0.2) Aspartate Amino Transf (AST/SGOT) 98 U/L (15-37) Alanine Aminotransferase (ALT/SGPT) 355 U/L (12-78) Alkaline Phosphatase 400 U/L (45-117) Total Protein 5.2 gm/dl (6.4-8.2) Albumin 1.5 gm/dl (3.4-5.0) Bedside Glucose 147 mg/dl (70-99) Allergies Coded Allergies: No Known Allergies (Unverified , 09/17/17) Medications Current Inpatient Medications Medications (Trade) Dose Ordered Sig/Candelaria Route Start Time Stop Time Status Last Admin Dose Admin Aspirin (Ecotrin Tab) 81 mg QAM PO 09/17/17 13:00 10/17/17 12:59 09/29/17 08:35 81 MG Al Hydrox/Mg Hydrox/Simethicone (Maalox Max Susp) 15 ml Q4H PRN PO 09/17/17 08:30 10/17/17 08:29 Lidocaine (Lidoderm Patch 5%) 1 patch QAM TD 09/18/17 09:00 10/18/17 08:59 09/29/17 08:35 1 PATCH Miscellaneous (Remove Lidoderm Patch) 1 ea DAILY@21 N/A 09/17/17 21:00 10/17/17 20:59 09/28/17 21:29 1 EA Amlodipine Besylate (Norvasc Tab) 10 mg QAM PO 09/19/17 09:00 10/19/17 08:59 09/29/17 08:36 10 MG Miscellaneous Information (Consult) 1 ea UD PRN N/A 09/21/17 03:15 10/21/17 03:14 Guaifenesin (Organidin Nr Tab) 200 mg Q4H PO 09/21/17 04:00 10/21/17 03:59 09/29/17 08:35 200 MG Piperacillin Sod/ Tazobactam Sod 4.5 gm/Dextrose 120 ml @ 30 mls/hr Q12H IV 09/21/17 14:00 10/14/17 13:59 09/29/17 02:02 30 MLS/HR Tamsulosin HCl (Flomax Cap) 0.4 mg HS PO 09/21/17 21:00 10/21/17 20:59 09/28/17 21:29 0.4 MG Insulin Aspart (novoLOG ASPART) SLIDING SCALE G... ACHS SC 09/23/17 16:15 10/23/17 16:14 09/28/17 21:36 4 UNITS Prednisone (PredniSONE TAB) 40 mg QAM PO 09/26/17 09:00 10/26/17 08:59 09/29/17 08:36 40 MG Dextrose 1,000 ml @ 75 mls/hr [id number] IV 09/27/17 13:00 10/27/17 12:59 09/29/17 05:13 75 MLS/HR Sodium Bicarbonate (Sodium Bicarbonate Tab) 1,300 mg BID PO 09/28/17 20:00 10/27/17 19:59 09/29/17 08:35 1,300 MG Metoprolol Tartrate (Lopressor Tab) 50 mg BID PO 09/29/17 08:00 10/18/17 20:59 09/29/17 08:34 50 MG Impression (1) Acute renal failure (2) Hyperbilirubinemia (3) UTI (urinary tract infection) (4) Leukocytosis (5) Thrombocytopenia (6) Anemia (7) Gram-negative bacteremia Mr. Emmanuel is an inmate from [facility] admitted for evaluation of progressive symptoms of weakness, anorexia, nausea, abdominal discomfort and left hip pain. Clinical presentation consistent with severe sepsis. Blood and urine cultures have grown out dhaliwal sensitive E coli. Patient was treated with Zosyn. Medical history is notable for a BPH, urinary obstruction with chronic indwelling Hamm as well as an elevated PSA. Initial evaluation is notable for SONY, hyperbilirubinemia (direct), hypoalbuminemia, thrombocytopenia, anemia and a marked leukocytosis. Peripheral smear was negative for hematologic malignancy or hemolytic anemia. Platelet count continues to fall. INR and PTT are slightly elevated. Fibrinogen is elevated which is not consistent with DIC and less consistent with chronic liver disease. 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 The kidneys are normal in appearance. There is no evidence of obstruction. Urine is turbid with gross hematuria. UA documented hematuria, proteinuria, pyuria. Urine and blood cultures are positive for pansensitive E. Coli. Liver is not cirrhotic appearing. RUQ US documented enlarged GB without obvious stone or obstruction. MRCP was negative Patient has had R hip pain. X-ray shows degenerative changes of the hip. No evidence of metastatic disease Recommendations -- Patient is in recovery phase of ATN. Creatinine has improved to 2.8 Azotemia is improved. Continues to have decent urine output. . Hypernatremia has resolved. getting 2 PRBC -- discontinue IV fluid -- continue Na bicarbonate to 1300 mg BID -- Document I/O's -- Remains on Zosyn. Urology has recommended 6 weeks antibiotic therapy due to prostatitis Will follow
[2017-09-29] MEDS: PANTOprazole INJ 40 MG in DEXTROSE 5% 100ML IV SCH ×2 (13:45→18:29)
[2017-09-29 19:08] LABS: HEMATOCRIT 29.3 % (42-52)
[2017-09-29] MEDS: TAMSULOSIN HCL 0.4 MG CAP PO SCH (21:21)
[2017-09-30] MEDS: PANTOprazole INJ 40 MG in DEXTROSE 5% 100ML IV SCH ×6 (00:53→23:51)
[2017-09-30] MEDS: GUAIFENESIN 200 MG TAB PO SCH ×6 (03:39→23:51)
[2017-09-30] MEDS: PIPERACILL/TAZOBAC IV 4.5 GM in DEXTROSE 5% 100ML IV SCH ×3 (05:30→21:35)
[2017-09-30 07:22] VITALS: BP 166/72; PULSE 75; TEMP 36.7; O2SAT 95
[2017-09-30 08:00] VITALS: O2SAT 95
[2017-09-30] MEDS: INSULIN ASPART 100 UNITS/ML 3 ML PEN SC SCH ×4 (08:00→21:40)
[2017-09-30 09:05] LABS: CALCIUM 8.1 mg/dl (8.5-10.1); CREATININE 2.75 mg/dl (0.60-1.40); POTASSIUM 4.5 mmol/L (3.5-5.1)
--- NOTE | 2017-09-30 09:44 | GI REPORT ---
Procedure Date: 09/30/2017 9:10 AM Procedure: Upper GI endoscopy Indications: Melena Medicines: Monitored Anesthesia Care Complications: No immediate complications. Estimated blood loss: None. Estimated Blood Loss: Estimated blood loss: none. Procedure: Pre-Anesthesia Assessment: - Pre-Anesthesia Assessment: - Prior to the procedure, a History and Physical was performed, and patient medications, allergies and sensitivities were reviewed. The patient's tolerance of previous anesthesia was reviewed. Please see Excep Apps for complete details. - The risks and benefits of the procedure and the sedation options and risks were discussed with the patient. All questions were answered and informed consent was obtained. - Patient identification and proposed procedure were verified prior to the procedure by the physician and the nurse. The procedure was verified in the pre-procedure area in the procedure room. After obtaining informed consent, the endoscope was passed carefully and meticuously under direct vision and only advanced when the lumen was clearly identified, C02 insuflation was utilized throughout the entirity of the procedure. Throughout the procedure, the patient's blood pressure, pulse, and oxygen saturations were monitored continuously. After obtaining informed consent, the endoscope was passed under direct vision. Throughout the procedure, the patient's blood pressure, pulse, and oxygen saturations were monitored continuously. The scope was introduced through the mouth, and advanced to the second part of duodenum. The upper GI endoscopy was accomplished without difficulty. The patient tolerated the procedure well. Findings: Food was found in the middle third of the esophagus and in the lower third of the esophagus. One non-bleeding superficial gastric ulcer with a clean ulcer base (Oscar Class III) was found in the prepyloric region of the stomach. The lesion was 5 mm in largest dimension. Biopsies were taken with a cold forceps in the entire examined stomach for histology. The examined duodenum was normal. Impression: - Food in the middle third of the esophagus and in the lower third of the esophagus. - Non-bleeding gastric ulcer with a clean ulcer base (Oscar Class III). - Normal examined duodenum. - Biopsies were taken with a cold forceps for histology in the entire examined stomach. Recommendation: - Await pathology results. - [facility]. - Use Prilosec (omeprazole) 40 mg PO BID for 2 months. - Repeat upper endoscopy in 2 months to check healing. Galindo Morris MD 09/30/2017 9:43:47 AM This report has been signed electronically. Note Initiated On: 09/30/2017 9:10 AM I attest to the content of the Intraoperative Record and orders documented therein, exceptions below
--- NOTE | 2017-09-30 10:05 | Anesthesiology Progress Note ---
Anesthesia Post Op Note Date & Time Sep 30, 2017 at 10:05 Vital Signs Pain Intensity: 0 Vital Signs Past 12 Hours Date Time Temp Pulse Resp B/P (MAP) Pulse Ox O2 Delivery O2 Flow Rate FiO2 09/30/17 09:59 94 20 175/73 (107) 98 Room Air 09/30/17 09:48 81 20 157/111 (126) 97 Room Air 09/30/17 09:37 81 20 145/68 (93) 99 Room Air 09/30/17 08:57 37.1 78 20 156/78 (104) 97 Room Air 09/30/17 08:00 95 Room Air 09/30/17 07:22 36.7 75 16 166/72 (103) 95 09/30/17 00:00 Room Air 09/29/17 23:07 36.8 62 20 161/71 (101) 98 Room Air Notes Mental Status: alert / awake / arousable, participated in evaluation Pt Amnestic to Procedure: Yes Nausea / Vomiting: adequately controlled Pain: adequately controlled Airway Patency, RR, SpO2: stable & adequate BP & HR: stable & adequate Hydration State: stable & adequate Anesthetic Complications: no major complications apparent
[2017-09-30 10:30] VITALS: BP 173/74; PULSE 74; TEMP 36.8; O2SAT 99
--- NOTE | 2017-09-30 12:01 | Nephrology Progress Note ---
Nephrology Progress Note Date of Service Sep 30, 2017. Chief Complaint Follow-up for acute kidney injury Subjective Mr. Emmanuel was seen and examined in his room this morning. Renal function continues to improve, creatinine 2.8 this morning, electrolyte acceptable. Blood pressure fair, urine output decent. Denies shortness of breath or chest pain. Has been having several episodes of dark stool, hemoglobin improved after PRBC yesterday. Had EGD this morning. Review of Systems A complete review of systems was performed. Pertinent positives are noted above. All other systems are negative. Vital Signs Last 8 Hrs Date Time Temp Pulse Resp B/P (MAP) Pulse Ox O2 Delivery O2 Flow Rate FiO2 09/30/17 08:57 37.1 78 20 156/78 (104) 97 Room Air 09/30/17 08:00 95 Room Air 09/30/17 07:22 36.7 75 16 166/72 (103) 95 Last Recorded Weight Weight (Kilograms): 77.000 Physical Exam GENERAL: elderly male, AAA x 3, pleasant, not in any distress. NECK: Supple, no JVD. RESPIRATORY: Normal breathing efforts, no accessory muscle use, clear to auscultation bilaterally, no wheezes or rales. CARDIOVASCULAR: S1, S2 normal, rate rhythm regular. EXTREMITY: No lower extremity edema NEURO: speech fluent. 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) Laboratory Results Past 24 Hours 09/29/17 18:51 09/30/17 08:02 Test 09/29/17 11:21 09/29/17 16:56 09/29/17 21:16 09/30/17 07:40 Bedside Glucose 121 mg/dl (70-99) 228 mg/dl (70-99) 175 mg/dl (70-99) 98 mg/dl (70-99) Test 09/30/17 08:02 Anion Gap 11.0 mmol/L (3-11) Est Creatinine Clear Calc Drug Dose 23.6 ml/min Estimated GFR () 25.2 Estimated GFR (Non- 21.7 BUN/Creatinine Ratio 23.3 (10-20) Calcium Level 8.1 mg/dl (8.5-10.1) Allergies Coded Allergies: No Known Allergies (Unverified , 09/17/17) Medications Current Inpatient Medications Medications (Trade) Dose Ordered Sig/Candelaria Route Start Time Stop Time Status Last Admin Dose Admin Aspirin (Ecotrin Tab) 81 mg QAM PO 09/17/17 13:00 10/17/17 12:59 09/29/17 08:35 81 MG Al Hydrox/Mg Hydrox/Simethicone (Maalox Max Susp) 15 ml Q4H PRN PO 09/17/17 08:30 10/17/17 08:29 Lidocaine (Lidoderm Patch 5%) 1 patch QAM TD 09/18/17 09:00 10/18/17 08:59 09/29/17 08:35 1 PATCH Miscellaneous (Remove Lidoderm Patch) 1 ea DAILY@21 N/A 09/17/17 21:00 10/17/17 20:59 09/29/17 21:20 1 EA Amlodipine Besylate (Norvasc Tab) 10 mg QAM PO 09/19/17 09:00 10/19/17 08:59 09/29/17 08:36 10 MG Miscellaneous Information (Consult) 1 ea UD PRN N/A 09/21/17 03:15 10/21/17 03:14 Guaifenesin (Organidin Nr Tab) 200 mg Q4H PO 09/21/17 04:00 10/21/17 03:59 09/30/17 03:39 200 MG Tamsulosin HCl (Flomax Cap) 0.4 mg HS PO 09/21/17 21:00 10/21/17 20:59 09/29/17 21:21 0.4 MG Insulin Aspart (novoLOG ASPART) SLIDING SCALE G... ACHS SC 09/23/17 16:15 10/23/17 16:14 09/29/17 21:19 1 UNITS Prednisone (PredniSONE TAB) 40 mg QAM PO 09/26/17 09:00 10/26/17 08:59 09/29/17 08:36 40 MG Sodium Bicarbonate (Sodium Bicarbonate Tab) 1,300 mg BID PO 09/28/17 20:00 10/27/17 19:59 09/29/17 21:20 1,300 MG Metoprolol Tartrate (Lopressor Tab) 50 mg BID PO 09/29/17 08:00 10/18/17 20:59 09/29/17 21:20 50 MG Pantoprazole Sodium 40 mg/ Dextrose 100 ml @ 20 mls/hr Q5H IV 09/29/17 10:45 10/29/17 10:44 09/30/17 06:03 20 MLS/HR Piperacillin Sod/ Tazobactam Sod 4.5 gm/Dextrose 120 ml @ 30 mls/hr Q8H IV 09/29/17 22:00 10/14/17 13:59 09/30/17 05:30 30 MLS/HR Impression (1) Acute renal failure (2) Hyperbilirubinemia (3) UTI (urinary tract infection) (4) Leukocytosis (5) Thrombocytopenia (6) Anemia (7) Gram-negative bacteremia Mr. Emmanuel is an inmate from [facility] admitted for evaluation of progressive symptoms of weakness, anorexia, nausea, abdominal discomfort and left hip pain. Clinical presentation consistent with severe sepsis. Blood and urine cultures have grown out dhaliwal sensitive E coli. Patient was treated with Zosyn. Medical history is notable for a BPH, urinary obstruction with chronic indwelling Hamm as well as an elevated PSA. Initial evaluation is notable for SONY, hyperbilirubinemia (direct), hypoalbuminemia, thrombocytopenia, anemia and a marked leukocytosis. Peripheral smear was negative for hematologic malignancy or hemolytic anemia. Platelet count continues to fall. INR and PTT are slightly elevated. Fibrinogen is elevated which is not consistent with DIC and less consistent with chronic liver disease. 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 The kidneys are normal in appearance. There is no evidence of obstruction. Urine is turbid with gross hematuria. UA documented hematuria, proteinuria, pyuria. Urine and blood cultures are positive for pansensitive E. Coli. Liver is not cirrhotic appearing. RUQ US documented enlarged GB without obvious stone or obstruction. MRCP was negative Patient has had R hip pain. X-ray shows degenerative changes of the hip. No evidence of metastatic disease Recommendations -- Patient is in recovery phase of ATN. Creatinine has improved to 2.8. Continues to have decent urine output. -- continue Na bicarbonate to 1300 mg BID -- Document I/O's -- Remains on Zosyn. Urology has recommended 6 weeks antibiotic therapy due to prostatitis Will follow
[2017-09-30] MEDS: AMLODIPINE BESYLATE 5 MG TAB PO SCH (13:10)
[2017-09-30] MEDS: METOPROLOL TARTRATE 50 MG TAB PO SCH ×2 (13:11→21:34)
[2017-09-30] MEDS: ASPIRIN 81 MG ECTAB PO SCH (13:11)
[2017-09-30] MEDS: SODIUM BICARBONATE 650 MG TAB PO SCH ×2 (13:12→21:34)
[2017-09-30] MEDS: LIDODERM (LIDOCAINE) PATCH 5% TD SCH (13:13)
[2017-09-30 15:26] VITALS: BP 169/72; PULSE 92; TEMP 36.9; O2SAT 97
[2017-09-30 16:00] VITALS: O2SAT 97
[2017-09-30 17:26] LABS: HEMOGLOBIN 9.7 g/dL (14.0-18.0); MEAN CELL VOLUME 79.5 fL (80-100); MEAN CORPUSCULAR HEMOGLOBIN 27.6 pg (25-34); PLATELET COUNT 390 K/uL (130-400); RED CELL DISTRIBUTION WIDTH CV 20.1 % (11.5-14.5); RED CELL DISTRIBUTION WIDTH SD 49.2 fL (36.4-46.3); WHITE BLOOD COUNT 16.24 K/uL (4.8-10.8)
[2017-09-30 17:27] LABS: MEAN CORPUSCULAR HGB CONC 34.6 g/dl (32-36)
[2017-09-30] MEDS: TAMSULOSIN HCL 0.4 MG CAP PO SCH (21:34)
[2017-09-30 22:38] VITALS: BP 166/74; PULSE 76; TEMP 36.8; O2SAT 98
[2017-10-01] MEDS: GUAIFENESIN 200 MG TAB PO SCH ×4 (03:43→16:16)
[2017-10-01] MEDS: PANTOprazole INJ 40 MG in DEXTROSE 5% 100ML IV SCH ×3 (04:57→14:48)
[2017-10-01] MEDS: PIPERACILL/TAZOBAC IV 4.5 GM in DEXTROSE 5% 100ML IV SCH (06:22)
[2017-10-01 07:28] LABS: CALCIUM 7.7 mg/dl (8.5-10.1); CREATININE 2.86 mg/dl (0.60-1.40); POTASSIUM 3.5 mmol/L (3.5-5.1)
--- NOTE | 2017-10-01 07:31 | Progress Note ---
Subjective Date of Service: Sep 30, 2017. Subjective Pt evaluation today including: conversation w/ patient Patient seen on Sep 30, 2017 Patient reports no dark stools in past day. Patient denies fever, chills, nausea. Problem List Medical Problems: (1) Acute renal failure Status: Acute (2) Hyperbilirubinemia Status: Acute (3) Leukocytosis Status: Acute (4) UTI (urinary tract infection) Status: Acute Review of Systems Constitutional: No fever, No chills Eyes: No worsening of vision ENT: No hearing loss Respiratory: No cough Cardiac: No chest pain Abdomen: No pain Musculoskeletal: No joint pain Psychiatric: No depression symptoms Heme: No abnormal bleeding/bruising Endo: No fatigue Skin: No rash All Other Systems: Reviewed and Negative Medications Current Inpatient Medications Medications (Trade) Dose Ordered Sig/Candelaria Route Start Time Stop Time Status Last Admin Dose Admin Aspirin (Ecotrin Tab) 81 mg QAM PO 09/17/17 13:00 10/17/17 12:59 10/01/17 08:38 81 MG Al Hydrox/Mg Hydrox/Simethicone (Maalox Max Susp) 15 ml Q4H PRN PO 09/17/17 08:30 10/17/17 08:29 Lidocaine (Lidoderm Patch 5%) 1 patch QAM TD 09/18/17 09:00 10/18/17 08:59 10/01/17 08:40 1 PATCH Miscellaneous (Remove Lidoderm Patch) 1 ea DAILY@21 N/A 09/17/17 21:00 10/17/17 20:59 09/30/17 21:00 1 EA Amlodipine Besylate (Norvasc Tab) 10 mg QAM PO 09/19/17 09:00 10/19/17 08:59 10/01/17 08:38 10 MG Guaifenesin (Organidin Nr Tab) 200 mg Q4H PO 09/21/17 04:00 10/21/17 03:59 10/01/17 08:37 200 MG Tamsulosin HCl (Flomax Cap) 0.4 mg HS PO 09/21/17 21:00 10/21/17 20:59 09/30/17 21:34 0.4 MG Insulin Aspart (novoLOG ASPART) SLIDING SCALE G... ACHS SC 09/23/17 16:15 10/23/17 16:14 09/30/17 21:40 2 UNITS Sodium Bicarbonate (Sodium Bicarbonate Tab) 1,300 mg BID PO 09/28/17 20:00 10/27/17 19:59 10/01/17 08:39 1,300 MG Metoprolol Tartrate (Lopressor Tab) 50 mg BID PO 09/29/17 08:00 10/18/17 20:59 10/01/17 08:39 50 MG Pantoprazole Sodium 40 mg/ Dextrose 100 ml @ 20 mls/hr Q5H IV 09/29/17 10:45 10/29/17 10:44 10/01/17 10:13 20 MLS/HR Prednisone (PredniSONE TAB) 30 mg DAILY PO 09/30/17 12:00 10/30/17 11:59 10/01/17 08:39 30 MG Hydralazine HCl (Apresoline Tab) 25 mg TID PO 10/01/17 14:00 10/31/17 13:59 Ceftriaxone Sodium 1 gm/ Dextrose 50 ml @ 120 mls/hr Q24H IV 10/01/17 10:00 10/15/17 09:59 10/01/17 09:39 120 MLS/HR Objective Vital Signs Date Time Temp Pulse Resp B/P (MAP) Pulse Ox O2 Delivery O2 Flow Rate FiO2 10/01/17 00:00 Room Air 09/30/17 22:38 36.8 76 18 166/74 (104) 98 Room Air 09/30/17 16:00 97 Room Air 09/30/17 15:26 36.9 92 16 169/72 (104) 97 09/30/17 10:30 36.8 74 20 173/74 (107) 99 Room Air 09/30/17 09:59 94 20 175/73 (107) 98 Room Air 09/30/17 09:48 81 20 157/111 (126) 97 Room Air 09/30/17 09:37 81 20 145/68 (93) 99 Room Air 09/30/17 08:57 37.1 78 20 156/78 (104) 97 Room Air 09/30/17 08:00 95 Room Air Physical Exam Comments: General Appearance: WD/WN, no apparent distress Eyes: normal inspection, EOMI, sclerae normal ENT: normal ENT inspection, hearing grossly normal, pharynx normal Neck: supple, no adenopathy, no JVD, trachea midline Respiratory/Chest: chest non-tender, lungs clear, normal breath sounds, no respiratory distress, no accessory muscle use Cardiovascular: regular rate, rhythm, no edema, no gallop, no JVD, no murmur Abdomen: normal bowel sounds, non tender, soft, no organomegaly Extremities: normal range of motion, non-tender, normal inspection, no pedal edema, no calf tenderness, pelvis stable 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: strength 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 conditioning coach II-XII nml as tested, no motor/sensory deficits, alert, normal mood/affect, oriented x 3 Skin: normal color, warm/dry, + jaundice Laboratory Results Last 24 Hours Test 09/30/17 07:40 09/30/17 08:02 09/30/17 11:19 09/30/17 16:40 Bedside Glucose 98 mg/dl 103 mg/dl 196 mg/dl Sodium Level 143 mmol/L Potassium Level 4.5 mmol/L Chloride Level 114 mmol/L Carbon Dioxide Level 18 mmol/L Anion Gap 11.0 mmol/L Blood Urea Nitrogen 64 mg/dl Creatinine 2.75 mg/dl Est Creatinine Clear Calc Drug Dose 23.6 ml/min Estimated GFR () 25.2 Estimated GFR (Non- 21.7 BUN/Creatinine Ratio 23.3 Random Glucose 102 mg/dl Calcium Level 8.1 mg/dl Test 09/30/17 17:14 09/30/17 19:49 10/01/17 06:24 White Blood Count 16.24 K/uL Red Blood Count 3.52 M/uL Hemoglobin 9.7 g/dL 10.0 g/dL Hematocrit 28.0 % 29.0 % Mean Corpuscular Volume 79.5 fL Mean Corpuscular Hemoglobin 27.6 pg Mean Corpuscular Hemoglobin Concent 34.6 g/dl RDW Standard Deviation 49.2 fL RDW Coefficient of Variation 20.1 % Platelet Count 390 K/uL Mean Platelet Volume 12.0 fL Bedside Glucose 198 mg/dl Sodium Level 141 mmol/L Potassium Level 3.5 mmol/L Chloride Level 111 mmol/L Carbon Dioxide Level 19 mmol/L Anion Gap 11.0 mmol/L Blood Urea Nitrogen 56 mg/dl Creatinine 2.86 mg/dl Est Creatinine Clear Calc Drug Dose 22.7 ml/min Estimated GFR () 24.0 Estimated GFR (Non- 20.7 BUN/Creatinine Ratio 19.7 Random Glucose 94 mg/dl Calcium Level 7.7 mg/dl Assessment and Plan UROSEPSIS with severe acute renal failure and metabolic acidosis in a 72 yo male with history of hypertension, BPH. - UTI with severe sepsis: blood cultures and urine culture grew pansensitive E coli continue Zosyn IV, will need 4-6 weeks total will consider switched to levofloxacin afebrile, WBC elevated, likely due to prednisone blood culture from 09/21 growing pansensitive E coli repeat cultures from 09/23 show no growth at this point, first set of cultures that are negative echo shows no vegetations CT chest: shows ARDS, no evidence of pneumonia, no septic emboli CT abdomen/pelvis: no abscess, no signs of infection Urology recommending 4-6 weeks total antibiotics due to suspected prostatitis US guided peripheral in for now, attempted PICC but no good veins, unsure of good plan for access Due to prolonged bacteremia, will require IV antibiotics for the total duration of her symptoms. Unable to obtain Midline. Patient will use peripheral u/s guided lines. Anemia from upper gi bleed Upper endoscopy showed non bleeding ulcer. will continue PPI BID Acute hypoxic respiratory failure, secondary to ARDS, due to sepsis titrated off of High flow, now on room air, breathing comfortably - Metabolic acidosis with acute respiratory alkalosis due to severe sepsis, renal failure, stable continue BICARB PO - SONY: likely ATN, improved for several days, CR has stablilized. still recovering from ATN. - Hepatitis: liver enzymes continue to be elevated, Bili down slightly but transaminases rising again continue to follow, check INR which is normal GI following serology panel sent out, HIV, Hepatitis negative EBV positive but IgG suggesting prior infection MRCP essentially normal, liver US normal, no evidence of portal vein thrombosis may be a result of sepsis surgery signed off may require liver biopsy and transfer if he does not improve, but it appears that he is improving Thrombocytopenia: resolved, 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, stopped heparin HTN: Resumed metoprolol and amlodipine BPH and elevated PSA, h/o prostate nodule appreciate urology consultation, needs biopsy in the office in 2 weeks will have cystoscopy at that time as well needs 4-6 weeks of antibiotics leave vega in place bone scan 09/22 showed no suspicious lesions that would suggest metastatic disease Patient is LEVEL 5 CODE STATUS DVT: SCD GI PROTONIX tolerating diet Continued [facility] stay due to: abnormal vital signs, voiding difficulties Discharge planning: uncertain
[2017-10-01 08:22] VITALS: BP 168/70; PULSE 68; TEMP 36.6; O2SAT 97
[2017-10-01 08:22] LABS: ALBUMIN 1.7 gm/dl (3.4-5.0); TOTAL PROTEIN 5.8 gm/dl (6.4-8.2)
[2017-10-01] MEDS: INSULIN ASPART 100 UNITS/ML 3 ML PEN SC SCH ×3 (08:37→17:32)
[2017-10-01] MEDS: ASPIRIN 81 MG ECTAB PO SCH (08:38)
[2017-10-01] MEDS: AMLODIPINE BESYLATE 5 MG TAB PO SCH (08:38)
[2017-10-01] MEDS: METOPROLOL TARTRATE 50 MG TAB PO SCH (08:39)
[2017-10-01] MEDS: SODIUM BICARBONATE 650 MG TAB PO SCH (08:39)
[2017-10-01] MEDS: LIDODERM (LIDOCAINE) PATCH 5% TD SCH (08:40)
[2017-10-01] MEDS ORDERED: PREMIXED IV SCH (09:15)
[2017-10-01] MEDS ORDERED: [UNRECOGNIZED DRUG - OTHER] IV SCH (09:15)
[2017-10-01] MEDS ORDERED: D5W IV SCH (09:15)
[2017-10-01] MEDS ORDERED: LEVOFLOXACIN IV SCH (09:15)
[2017-10-01] MEDS ORDERED: CEFTRIAXONE SOD INJ 1 GM in DEXTROSE 5% 50ML 50 ML IV SCH (10:00)
--- NOTE | 2017-10-01 10:42 | Gastroenterology Progress Note ---
Progress Note Date of Service: Oct 01, 2017 Subjective Pt evaluation today including: conversation w/ patient, physical exam, chart review, lab review, review of studies, review of inpatient medication list Mr. Emmanuel is a 72 yr old male admitted on 09/17 for hip pain, treated for UTI sepsis, ARF. GI was consulted for elevated LFTs . Imaging w/o obstruction. LFT elevation likely from sepsis. LFTs continue to improve. Viral and autoimmune liver labs w/ o abnormalities. Experienced melena/anemic: Hb on arrival 9.3, decreased to 6.5, received 2 units of RBCs, Hb stable post transfusion today at 9.7. EGD yesterday with a clean based gastric ulcer. Review of Systems Constitutional: No fever ENT: No hearing loss Respiratory: No cough Cardiac: No chest pain Abdomen: No pain, No nausea, No vomiting, No diarrhea, No constipation (most recent BM was yesterday; one black then) Male : No dysuria Neuro: No memory loss Psych: No depression symptoms Heme: + see HPI, No abnormal bleeding/bruising (no gross GI bleeding today) Endo: No fatigue Skin: No rash Medications Current Inpatient Medications Medications (Trade) Dose Ordered Sig/Candelaria Route Start Time Stop Time Status Last Admin Dose Admin Aspirin (Ecotrin Tab) 81 mg QAM PO 09/17/17 13:00 10/17/17 12:59 10/01/17 08:38 81 MG Al Hydrox/Mg Hydrox/Simethicone (Maalox Max Susp) 15 ml Q4H PRN PO 09/17/17 08:30 10/17/17 08:29 Lidocaine (Lidoderm Patch 5%) 1 patch QAM TD 09/18/17 09:00 10/18/17 08:59 10/01/17 08:40 1 PATCH Miscellaneous (Remove Lidoderm Patch) 1 ea DAILY@21 N/A 09/17/17 21:00 10/17/17 20:59 09/30/17 21:00 1 EA Amlodipine Besylate (Norvasc Tab) 10 mg QAM PO 09/19/17 09:00 10/19/17 08:59 10/01/17 08:38 10 MG Guaifenesin (Organidin Nr Tab) 200 mg Q4H PO 09/21/17 04:00 10/21/17 03:59 10/01/17 08:37 200 MG Tamsulosin HCl (Flomax Cap) 0.4 mg HS PO 09/21/17 21:00 10/21/17 20:59 09/30/17 21:34 0.4 MG Insulin Aspart (novoLOG ASPART) SLIDING SCALE G... ACHS SC 09/23/17 16:15 10/23/17 16:14 09/30/17 21:40 2 UNITS Sodium Bicarbonate (Sodium Bicarbonate Tab) 1,300 mg BID PO 09/28/17 20:00 10/27/17 19:59 10/01/17 08:39 1,300 MG Metoprolol Tartrate (Lopressor Tab) 50 mg BID PO 09/29/17 08:00 10/18/17 20:59 10/01/17 08:39 50 MG Pantoprazole Sodium 40 mg/ Dextrose 100 ml @ 20 mls/hr Q5H IV 09/29/17 10:45 10/29/17 10:44 10/01/17 10:13 20 MLS/HR Prednisone (PredniSONE TAB) 30 mg DAILY PO 09/30/17 12:00 10/30/17 11:59 10/01/17 08:39 30 MG Hydralazine HCl (Apresoline Tab) 25 mg TID PO 10/01/17 14:00 10/31/17 13:59 Ceftriaxone Sodium 1 gm/ Dextrose 50 ml @ 120 mls/hr Q24H IV 10/01/17 10:00 10/15/17 09:59 10/01/17 09:39 120 MLS/HR Objective Vital Signs Date Time Temp Pulse Resp B/P (MAP) Pulse Ox O2 Delivery O2 Flow Rate FiO2 10/01/17 08:22 36.6 68 16 168/70 (102) 97 Room Air 10/01/17 07:43 Room Air 10/01/17 00:00 Room Air 09/30/17 22:38 36.8 76 18 166/74 (104) 98 Room Air 09/30/17 16:00 97 Room Air 09/30/17 15:26 36.9 92 16 169/72 (104) 97 Physical Exam General Appearance: no apparent distress ENT: pharynx normal Neck: no JVD Respiratory/Chest: lungs clear Cardiovascular: regular rate, rhythm, no JVD, no murmur Abdomen: non tender, soft Extremities: non-tender Neurologic/Psych: alert, normal mood/affect, oriented x 3 Skin: no jaundice Laboratory Results Last 24 Hours Test 09/30/17 11:19 09/30/17 16:40 09/30/17 17:14 09/30/17 19:49 Bedside Glucose 103 mg/dl 196 mg/dl 198 mg/dl White Blood Count 16.24 K/uL Red Blood Count 3.52 M/uL Hemoglobin 9.7 g/dL Hematocrit 28.0 % Mean Corpuscular Volume 79.5 fL Mean Corpuscular Hemoglobin 27.6 pg Mean Corpuscular Hemoglobin Concent 34.6 g/dl RDW Standard Deviation 49.2 fL RDW Coefficient of Variation 20.1 % Platelet Count 390 K/uL Mean Platelet Volume 12.0 fL Test 10/01/17 06:24 10/01/17 08:09 Hemoglobin 10.0 g/dL Hematocrit 29.0 % Sodium Level 141 mmol/L Potassium Level 3.5 mmol/L Chloride Level 111 mmol/L Carbon Dioxide Level 19 mmol/L Anion Gap 11.0 mmol/L Blood Urea Nitrogen 56 mg/dl Creatinine 2.86 mg/dl Est Creatinine Clear Calc Drug Dose 22.7 ml/min Estimated GFR () 24.0 Estimated GFR (Non- 20.7 BUN/Creatinine Ratio 19.7 Random Glucose 94 mg/dl Calcium Level 7.7 mg/dl Total Bilirubin 2.6 mg/dl Direct Bilirubin 2.0 mg/dl Aspartate Amino Transf (AST/SGOT) 73 U/L Alanine Aminotransferase (ALT/SGPT) 235 U/L Alkaline Phosphatase 392 U/L Total Protein 5.8 gm/dl Albumin 1.7 gm/dl Bedside Glucose 97 mg/dl Assessment and Plan Mr. Emmanuel is a 72 yr old male with urosepsis, improving. 1. Elevated LFTs likely from the sepsis. LFTs are continuing to improving. 2. Gastric ulcer. Plan: 1. Will need OP EGD in one month to check for healing of the gastric ulcer. Please continue BID, po PPI until recheck EGD, or approx 6 weeks. 2. Please continue trend LFTs approx 2-3 times/week. 3. GI will watch patient peripherally. Please call GI if drop in Hb, gross bleeding or if LFTs increase. I have seen , examined and agree with the plan as outlined by PATRIA Lyle as above. -exam reveals soft abd -no signs of bleeding -BID PPI and repeat EGD in 2 months
[2017-10-01] MEDS ORDERED: CEFT1INJ26 IV (14:48)
[2017-10-01] MEDS ORDERED: APR25 PO (14:48)
[2017-10-01] MEDS ORDERED: PANT1TAB3 PO ×2 (14:48→14:55)
[2017-10-01] MEDS ORDERED: SODI650T8 PO (14:48)
[2017-10-01] MEDS ORDERED: PRD10 PO (14:48)
[2017-10-01] MEDS ORDERED: METO50TA16 PO (14:48)
--- NOTE | 2017-10-01 14:55 | Discharge Instructions ---
Discharge Instructions Date of Service Oct 01, 2017. Admission Reason for Admission: Acute Renal Failure,Leukocytosis,Sepsis Discharge Discharge Diagnosis / Problem: Acute Renal Failure Discharge Goals Goal(s): Decrease discomfort, Improve function Activity Recommendations Activity Limitations: as noted below Lifting Limitations: gradually increase as tolerated . Instructions / Follow-Up Instructions / Follow-Up Followup with PCP in 1 week Gastro recommendations 1. Will need OP EGD in one month to check for healing of the gastric ulcer. Please continue Pantoprazole BID, po PPI until recheck EGD, or approx 6 weeks. 2. Please continue trend Liver Function Tests approx 2-3 times/week. 3. GI will watch patient peripherally. Please call GI if drop in Hb, gross bleeding or if LFTs increase. Neprho: Followup with Jewelry [employer] Dr. Handy in 1-2 weeks Followup with BMP on Wednesday -- Patient is in recovery phase of ATN. Creatinine has improved to 2.8. Continues to have decent urine output. -- continue Na bicarbonate to 1300 mg BID Followup with Urologist once Antibiotics are completed. Patient will need to continue on U/S guided peripheral line until it no longer works. Can remove once completes 20 more days of antibiotics. Patient iwll need replacement if line no longer works prior to the 20 days of antibiotics. Patient will need to continue with Physical therapy as patient is very weak as he has been bedridden. PT note below: Patient is a 72 year old male admitted to [facility] on 09/17/17. He was pleasant and agreeable to participating. He displays deficits with transfers, ambulation, balance, strength, and overall functional mobility. He would benefit from continued acute care P.T. while at [facility], progressing as per his tolerance. Recommend return to correctional facility when medically stable. Current Hospital Diet Patient's current hospital diet: Diabetes Type 2 Diet, Regular Diet Discharge Diet Recommended Diet: Regular Diet, Diabetes Type 2 Diet Procedures Procedures Performed: EGD Pending Studies Studies pending at discharge: no Medical Emergencies . Who to Call and When: Medical Emergencies: If at any time you feel your situation is an emergency, please call 911 immediately. . Non-Emergent Contact Non-Emergency issues call your: Primary Care Provider Call Non-Emergent contact if: your pain is not controlled . . "Provider Documentation" section prepared by Adelso Berman. . VTE Core Measure Inpt VTE Proph given/why not?: Unfractionated heparin SQ, Contraindicated
[2017-10-01 16:00] VITALS: O2SAT 97
[2017-10-01 16:37] VITALS: BP 155/74; PULSE 78; TEMP 36.7; O2SAT 97
[2017-10-01] MEDS ORDERED: GLIM4TAB PO (16:47)
[2017-10-01 16:50] VITALS: BP 155/74; PULSE 78; TEMP 36.7; O2SAT 97
== END 2017-10-01 20:34 | DRG 871 ==
LOC: EDBD 03:48 → C.EDA 03:49 → ENRESERV 08:47 → C.MSICU 09:31 → ENRESERV 09-19 10:51 → C.MSN 09-19 11:03 → ENRESERV 09-21 03:26 → C.2E 09-21 04:56 → C.2T 09-23 19:38 → ENRESERV 09-26 16:17 → C.MS4W 09-26 17:24
PROVIDERS: ADMIT Internal Medicine Sports Medicine; ATTEND Internal Medicine Sports Medicine
PROC: 0DJ08ZZ Inspection of Upper Intestinal Tract, Via Natural or Artificial Opening Endoscopic (ICD-10-PCS; principal; 2017-09-30 08:52)
DX: A41.51 Sepsis due to Escherichia coli [E. coli] (principal); N17.0 Acute kidney failure with tubular necrosis; J96.01 Acute respiratory failure with hypoxia; N39.0 Urinary tract infection, site not specified; E87.2 Acidosis; K92.1 Melena; R65.20 Severe sepsis without septic shock; E11.9 Type 2 diabetes mellitus without complications; I10 Essential (primary) hypertension; D72.829 Elevated white blood cell count, unspecified; N40.1 Benign prostatic hyperplasia with lower urinary tract symptoms; R79.89 Other specified abnormal findings of blood chemistry; M16.12 Unilateral primary osteoarthritis, left hip; Z66 Do not resuscitate; D69.6 Thrombocytopenia, unspecified; R00.0 Tachycardia, unspecified; E80.6 Other disorders of bilirubin metabolism; E88.09 Other disorders of plasma-protein metabolism, not elsewhere classified; A49.8 Other bacterial infections of unspecified site; K75.9 Inflammatory liver disease, unspecified; R74.0 Nonspecific elevation of levels of transaminase and lactic acid dehydrogenase [LDH]; Z87.891 Personal history of nicotine dependence; Z79.82 Long term (current) use of aspirin

== ENCOUNTER 2017-10-05 12:36 | Inpatient (IN) | payer OTHER ==
[~2017-10-05] VITALS: Ht 175.3 cm; Wt 66.7 kg
[~2017-10-05 12:36] MED LIST: ACET-1256 PO; AMLO-114 PO; APR25 PO; ASPI81TA28 PO; CEFT1INJ26 IV; CETI10TA84 PO; FINA5TAB PO; GLIM4TAB PO; LOVA20TA4 PO; METO50TA16 PO; PANT1TAB3 PO; PRD10 PO; SODI650T8 PO; TAMS0.4C38 PO
[2017-10-05] MEDS ORDERED: SODIUM CHLORIDE 0.9% 1000ML 2,000 ML IV STA (13:18)
[2017-10-05] MEDS ORDERED: PIPERACILLIN/TAZOBACTAM 4.5 GM/100ML D5W IV STA (13:21)
[2017-10-05 13:42] LABS: ISTAT CREATININE 2.6 mg/dl (0.6-1.3); ISTAT IONIZED CALCIUM 1.09 mmol/l (1.12-1.32); ISTAT POTASSIUM 3.5 mEq/L (3.3-5.0)
[2017-10-05 13:47] LABS: BASO % 0.1 %; BASO ABS # 0.01 K/uL (0-0.2); EOS % 2.7 %; EOS ABS # 0.26 K/uL (0-0.5); HEMATOCRIT 27.6 % (42-52); HEMOGLOBIN 9.1 g/dL (14.0-18.0); IG# 0.03 K/uL (0.00-0.02); LYMPH % 10.7 %; LYMPH ABS # 1.02 K/uL (1.2-3.4); MEAN CELL VOLUME 81.4 fL (80-100); MEAN CORPUSCULAR HEMOGLOBIN 26.8 pg (25-34); MEAN PLATELET VOLUME 11.2 fL (7.4-10.4); MONO % 8.2 %; MONO ABS # 0.78 K/uL (0.11-0.59); PLATELET COUNT 280 K/uL (130-400); RED CELL DISTRIBUTION WIDTH CV 18.6 % (11.5-14.5)
--- NOTE | 2017-10-05 13:53 | DIAGNOSTIC IMAGING REPORT ---
CHEST ONE VIEW PORTABLE CLINICAL HISTORY: fever COMPARISON STUDY: 09/21/2017 FINDINGS: The heart is mildly enlarged. There is been interval improvement in the previously identified diffuse pulmonary opacities. There are residual/recurrent airspace opacities the axillary portion the right chest and left lung base.[ No pleural effusions are visualized. IMPRESSION: Residual/recurrent airspace opacities within the axillary portion the right chest and left lung base. Electronically signed by: Anthony Sanchez M.D. 10/05/2017 1:52 PM Dictated Date/Time: 10/05/2017 1:50 PM
[2017-10-05 13:55] LABS: INR 1.2 (0.9-1.1)
[2017-10-05 14:11] LABS: ALBUMIN 1.6 gm/dl (3.4-5.0); ALT/SGPT 114 U/L (12-78); AST/SGOT 43 U/L (15-37); BLOOD UREA NITROGEN 28 mg/dl (7-18); CALCIUM 7.6 mg/dl (8.5-10.1); CARBON DIOXIDE 21 mmol/L (21-32); CREATININE 2.22 mg/dl (0.60-1.40); GLUCOSE 109 mg/dl (70-99); POTASSIUM 3.5 mmol/L (3.5-5.1); SODIUM 136 mmol/L (136-145)
--- NOTE | 2017-10-05 14:15 | DIAGNOSTIC IMAGING REPORT ---
CT OF THE ABDOMEN AND PELVIS WITHOUT CONTRAST CLINICAL HISTORY: Abdominal pain. Fever. COMPARISON STUDY: CT of the abdomen and pelvis September 23, 2017. TECHNIQUE: Axial images of the abdomen and pelvis were obtained without IV contrast. Images were reviewed in the axial, sagittal, and coronal planes. A dose lowering technique was utilized adhering to the principles of ALARA. FINDINGS: Groundglass opacities within the lungs are again noted. These were shown on exam of September 23, 2017. A small right pleural effusion is slightly increased in size. Evaluation of the abdomen is suboptimal on this unenhanced exam. The liver, spleen, adrenal glands, kidneys and pancreas are unremarkable. There is no biliary or pancreatic ductal dilatation. There is no peripancreatic or pericholecystic infiltration. Note is made of mild anasarca. There is no evidence for a bowel obstruction. The appendix is normal. There is a moderate amount of stool within the colon and rectum. A Hamm balloon and gas are present within the bladder. There is colonic diverticulosis without evidence for acute diverticulitis. No abscess is identified. Presacral infiltration/fluid is again noted. This was shown on previous exam. IMPRESSION: 1. No bowel obstruction. Normal appendix. 2. Moderate amount of stool within the colon and rectum. 3. Colonic diverticulosis without evidence for acute diverticulitis. 4. Evidence for volume overload which was shown on prior exam. Slight increase in size of a small right pleural effusion. 5. Redemonstration of groundglass opacities within lungs which could reflect an infectious process, pulmonary edema or ARDS. Electronically signed by: Gaston Welch M.D. 10/05/2017 2:13 PM Dictated Date/Time: 10/05/2017 2:02 PM
[2017-10-05 14:16] LABS: ALKALINE PHOSPHATASE 335 U/L (45-117); CKMB 0.6 ng/ml (0.5-3.6); TOTAL PROTEIN 5.8 gm/dl (6.4-8.2)
[2017-10-05 14:24] LABS: INFLUENZA B ANTIGEN Neg for Influ B (NEG)
[2017-10-05] MEDS ORDERED: VANCOMYCIN IV 1,500 MG in SODIUM CHLORIDE 0.9% 500ML 500 ML IV STA (14:25)
[2017-10-05] MEDS ORDERED: LEVAQUIN 750MG / 150ML D5W IV STA (14:25)
[2017-10-05] MEDS ORDERED: VANCOMYCIN CONSULT ACTIVE PRN ×2 (14:30→15:45)
--- NOTE | 2017-10-05 15:04 | History and Physical ---
History & Physical Date & Time of Service: Oct 05, 2017 at 14:52 Chief Complaint: FEVER Primary Care Physician: Jamarcus MURPHY History of Present Illness This is a 72 yo M with PMHx of hepatitis A, HTN, BPH, osteoarthritis, who was recently admitted to [facility] [place] from 09/17-10/01 for urosepsis due to pansentivie Ecoli, acute renal failure and elevated LFTs. He was discharged on IV ceftriaxone for another 20 days for prostatitis. The patient reports that since being discharged he has felt increasingly generalized fatigue and weakness, and spiked a fever of 102 today. Patient notes he has had increasing shortness of breath with minimal activity. He typically has difficulty with ambulation due to the chronic left hip pain. Patient notes that he feels more short of breath with walking even approximately 10 feet. He has a slight cough, no sputum production, no runny nose or so with sore throat however he does admit to congestion. He denies any sort of chest pain or tightness. He does report having abdominal pain which is localized to the left upper quadrant and hdad 1 dark tarry bowel movement yesterday, without subsequent bowel movements. The patient notes that he has been receiving ceftriaxone IV as scheduled while at the present. Today in the ER, his PICC line was found to be infiltrated and required replacement. Past Medical/Surgical History Medical Problems: (1) Anemia (2) Bacteremia due to Gram-negative bacteria (3) BPH (benign prostatic hyperplasia) (4) Chronic left hip pain (5) Diabetes (6) Fever (7) Gram-negative bacteremia (8) Hepatitis A (9) HTN (hypertension) (10) Indwelling Vega catheter present (11) Leukocytosis (12) Pneumonia (13) Severe sepsis with acute organ dysfunction (14) Thrombocytopenia Family History unknown Social History Smoking Status: Former Smoker Smokeless Tobacco Use: No Drug Use: none Occupational Status: other Immunizations History of Influenza Vaccine: Unknown History of Tetanus Vaccine?: Unknown History of Pneumococcal: Unknown History of Hepatitis B Vaccine: Unknown Multi-Drug Resistant Organisms History of MDRO: No Allergies Coded Allergies: No Known Allergies (Unverified , 09/17/17) Home Medications Scheduled Acetaminophen (Tylenol), 500 MG PO TID Amlodipine (Norvasc), 10 MG PO DAILY Aspirin (Aspirin 81 Low Dose), 1 TAB PO DAILY Ceftriaxone Sodium (Rocephin), 1 GM IV DAILY Cetirizine (Zyrtec), 10 MG PO DAILY Finasteride (Proscar), 5 MG PO DAILY Hydralazine Hcl (Apresoline), 1 TAB PO TID Lovastatin (Mevacor), 20 MG PO HS Metoprolol Tartrate (Lopressor) (Lopressor), 50 MG PO BID Pantoprazole (Protonix), 40 MG PO BID Sodium Bicarbonate (Antacid) (Sodium Bicarbonate), 2 TAB PO BID Tamsulosin Hcl (Flomax), 0.4 MG PO BID Review of Systems Constitutional: + fever, no sweats or chills Eyes: No diplopia, no worsening or blurred vision ENT: normal hearing, no trouble swallowing, dry mouth Respiratory: See HPI Cardiovascular: No chest pain, tightness or palpitations Abdomen: + pain, no nausea, vomiting, diarrhea or constipation, + dark tarry bowel movement 1 Musculoskeletal: No joint pain, calf pain, swelling Neurologic: + weakness, numbness/tingling, or balance problems Psychiatric: No anxiety or depression Skin: No rash or itch Physical Exam Vital Signs Date Time Temp Pulse Resp B/P (MAP) Pulse Ox O2 Delivery O2 Flow Rate FiO2 10/05/17 14:34 37.3 95 18 133/75 95 Room Air 10/05/17 12:41 107 10/05/17 12:40 38.5 103 20 128/76 96 Room Air General: awake, alert, no apparent distress, male Head: Normocephalic, atraumatic ENT: PERRL, EOMI, no pharyngeal exudate, mucous membranes moist Chest: Diminished breath sounds at the left base on room air, no wheezes rales or rhonchi. Cardiac: Regular rate and rhythm, + few extra beats, no murmur, no JVD, normal peripheral pulses, good capillary refill Abdominal: NABS x 4 quadrants, soft, nontender to palpation, no rebound, guarding or tenderness Extremities: Normal inspection, no peripheral edema or erythema, calfs nontender to palpation Psych: Normal mood and affect Neuro: AAO x 3, sth intact bilaterally and related 5treng/5, no motor deficits, speech is clear, no peripheral sensory deficits Diagnostics Laboratory Results Results Past 24 Hours Test 10/05/17 13:15 10/05/17 13:23 10/05/17 13:29 10/05/17 13:40 Range/Units White Blood Count 9.50 4.8-10.8 K/uL Red Blood Count 3.39 4.7-6.1 M/uL Hemoglobin 9.1 14.0-18.0 g/dL Hematocrit 27.6 42-52 % Mean Corpuscular Volume 81.4 80-100 fL Mean Corpuscular Hemoglobin 26.8 25-34 pg Mean Corpuscular Hemoglobin Concent 33.0 32-36 g/dl Platelet Count 280 130-400 K/uL Mean Platelet Volume 11.2 7.4-10.4 fL Neutrophils (%) (Auto) 78.0 % Lymphocytes (%) (Auto) 10.7 % Monocytes (%) (Auto) 8.2 % Eosinophils (%) (Auto) 2.7 % Basophils (%) (Auto) 0.1 % Neutrophils # (Auto) 7.40 1.4-6.5 K/uL Lymphocytes # (Auto) 1.02 1.2-3.4 K/uL Monocytes # (Auto) 0.78 0.11-0.59 K/uL Eosinophils # (Auto) 0.26 0-0.5 K/uL Basophils # (Auto) 0.01 0-0.2 K/uL RDW Standard Deviation 55.0 36.4-46.3 fL RDW Coefficient of Variation 18.6 11.5-14.5 % Immature Granulocyte % (Auto) 0.3 % Immature Granulocyte # (Auto) 0.03 0.00-0.02 K/uL Prothrombin Time 12.1 9.0-12.0 SECONDS Prothromb Time International Ratio 1.2 0.9-1.1 Sodium Level 136 136-145 mmol/L Potassium Level 3.5 3.5-5.1 mmol/L Chloride Level 106 98-107 mmol/L Carbon Dioxide Level 21 21-32 mmol/L Anion Gap 9.0 18.0 16-25 mmol/L Blood Urea Nitrogen 28 7-18 mg/dl Creatinine 2.22 0.60-1.40 mg/dl Est Creatinine Clear Calc Drug Dose 26.3 ml/min Estimated GFR () 32.6 Estimated GFR (Non- 28.1 BUN/Creatinine Ratio 12.5 10-20 Random Glucose 109 70-99 mg/dl Calcium Level 7.6 8.5-10.1 mg/dl Magnesium Level 1.5 1.8-2.4 mg/dl Total Bilirubin 1.4 0.2-1 mg/dl Direct Bilirubin 1.0 0-0.2 mg/dl Aspartate Amino Transf (AST/SGOT) 43 15-37 U/L Alanine Aminotransferase (ALT/SGPT) 114 12-78 U/L Alkaline Phosphatase 335 45-117 U/L Total Creatine Kinase 35 39-308 U/L Creatine Kinase MB 0.6 0.5-3.6 ng/ml Creatine Kinase MB Ratio 1.7 0-3.0 Troponin I < 0.015 0-0.045 ng/ml Total Protein 5.8 6.4-8.2 gm/dl Albumin 1.6 3.4-5.0 gm/dl Bedside Lactic Acid Venous 1.18 0.90-1.70 mmol/L Bedside Hemoglobin 8.2 14.0-18.0 g/dl Bedside Hematocrit 24 42-52 % Bedside Sodium 136 135-144 mEq/L Bedside Potassium 3.5 3.3-5.0 mEq/L Bedside Chloride 103 101-112 mEq/L Bedside Total CO2 19 24-31 mEq/l Bedside Blood Urea Nitrogen 23 7-18 mg/dl Bedside Creatinine 2.6 0.6-1.3 mg/dl Bedside Glucose (other) 113 70-99 mg/dl Bedside Ionized Calcium (Meron) 1.09 1.12-1.32 mmol/l Urine Color YELLOW Urine Appearance CLOUDY CLEAR Urine pH 6.0 4.5-7.5 Urine Specific Smyer 1.012 1.000-1.030 Urine Protein TRACE NEG Urine Glucose (UA) NEG NEG Urine Ketones NEG NEG Urine Occult Blood 1+ NEG Urine Nitrite NEG NEG Urine Bilirubin NEG NEG Urine Urobilinogen NEG NEG Urine Leukocyte Esterase LARGE NEG Urine WBC (Auto) >30 0-5 /hpf Urine RBC (Auto) 0-4 0-4 /hpf Urine Hyaline Casts (Auto) 1-5 0-5 /lpf Urine Epithelial Cells (Auto) 5-10 0-5 /lpf Urine Bacteria (Auto) NEG NEG Urine Pathogenic Casts 0 /lpf Urine Yeast (Auto) NONE PRSENT Influenza Type A Antigen Neg for Influ A NEG Influenza Type B Antigen Neg for Influ B NEG Microbiology Results 10/05/17 Blood Culture, Received Pending 10/05/17 Blood Culture, Received Pending 10/05/17 Urine Culture, Received Pending Diagnostic Radiology CHEST ONE VIEW PORTABLE CLINICAL HISTORY: fever COMPARISON STUDY: 09/21/2017 FINDINGS: The heart is mildly enlarged. There is been interval improvement in the previously identified diffuse pulmonary opacities. There are residual/recurrent airspace opacities the axillary portion the right chest and left lung base.[ No pleural effusions are visualized. IMPRESSION: Residual/recurrent airspace opacities within the axillary portion the right chest and left lung base. Electronically signed by: Anthony Sanchez M.D. 10/05/2017 1:52 PM Dictated Date/Time: 10/05/2017 1:50 PM The status of this report is Signed. CT OF THE ABDOMEN AND PELVIS WITHOUT CONTRAST CLINICAL HISTORY: Abdominal pain. Fever. COMPARISON STUDY: CT of the abdomen and pelvis September 23, 2017. TECHNIQUE: Axial images of the abdomen and pelvis were obtained without IV contrast. Images were reviewed in the axial, sagittal, and coronal planes. A dose lowering technique was utilized adhering to the principles of ALARA. FINDINGS: Groundglass opacities within the lungs are again noted. These were shown on exam of September 23, 2017. A small right pleural effusion is slightly increased in size. Evaluation of the abdomen is suboptimal on this unenhanced exam. The liver, spleen, adrenal glands, kidneys and pancreas are unremarkable. There is no biliary or pancreatic ductal dilatation. There is no peripancreatic or pericholecystic infiltration. Note is made of mild anasarca. There is no evidence for a bowel obstruction. The appendix is normal. There is a moderate amount of stool within the colon and rectum. A Vega balloon and gas are present within the bladder. There is colonic diverticulosis without evidence for acute diverticulitis. No abscess is identified. Presacral infiltration/fluid is again noted. This was shown on previous exam. IMPRESSION: 1. No bowel obstruction. Normal appendix. 2. Moderate amount of stool within the colon and rectum. 3. Colonic diverticulosis without evidence for acute diverticulitis. 4. Evidence for volume overload which was shown on prior exam. Slight increase in size of a small right pleural effusion. 5. Redemonstration of groundglass opacities within lungs which could reflect an infectious process, pulmonary edema or ARDS. Electronically signed by: Gaston Welch M.D. 10/05/2017 2:13 PM Dictated Date/Time: 10/05/2017 2:02 PM The status of this report is Signed. EKG Normal sinus rhythm Normal ECG Vent. rate 99 BPM MN interval 130 ms QRS duration 78 ms QT/QTc 328/420 ms P-R-T axes 40 42 39 Impression Assessment and Plan This is a 72 yo M with PMHx of hepatitis A, HTN, BPH, osteoarthritis, who was recently admitted to [facility] [place] from 09/17-10/01 for urosepsis due to pansentivie Ecoli, acute renal failure and elevated LFTs. He was discharged on IV ceftriaxone for another 20 days for prostatitis. The patient reports that since being discharged he has felt increasingly generalized fatigue and weakness, and spiked a fever of 102 today. Patient notes he has had increasing shortness of breath with minimal activity. Fever, weakness, increased shortness of breath concerning for HCAP - Admit to tele on observation - Continue on vanc and levaquin renally dosed - Pt was on ceftriaxone 1 gm IV scheduled to stop on 10/21 for recent Urosepsis/ prostatitis. Pt has indwelling vega catheter since Aug 16 which he reports was due to urinary retention. - CXR reviewed - CT chest: 1. No bowel obstruction. Normal appendix. 2. Moderate amount of stool within the colon and rectum. 3. Colonic diverticulosis without evidence for acute diverticulitis. 4. Evidence for volume overload which was shown on prior exam. Slight increase in size of a small right pleural effusion. 5. Redemonstration of groundglass opacities within lungs which could reflect an infectious process, pulmonary edema or ARDS. - Was on prednisone taper which was scheduled to finish tomorrow. - pt without wheezing so will not continue steriods - Duonebs prn, o2 prn - Follow Bcx, UCx Gastric ulcer - GI was on board during last admission - Underwent EGD and found to have gastric ulcer - black tarry bm x 1 likely residual blood. Continue protonix for GI ppx. - Hgb = 9.1, during last admission was around 9.7-10.0 - Trend CBC daily - Pt placed on heparin subq for dvt ppx with poor mobility - dc if any signs of GI bleed. HTN - Continue metoprolol tartrate 50 mg BID, hydralazine 50 mg TID, amlodipine 10 mg daily, asa 81 mg daily BPH - Indwelling vega needs changed this admission - it has been approximately 4 weeks since last change was completed. - Continue flomax Hx hepatitis A - LFTs are improved compared to previous admission, trend daily x 3 more days. Osteoarthritis - Continue tylenol for pain in left hip DVT ppx: Teds, scd, heparin subq CODE STATUS: DNR Disposition: From [facility], to assist with dc planning Level of Care Telemetry Resuscitation Status DO NOT RESUSCITATE VTE Prophylaxis Risk Level: Low Given or contraindicated: Unfractionated heparin SQ, T.E.D. Stockings, SCD's Reviewed: Pt Seen/Exam by Me History Pt has been having diarrhea and some discomfort with this, but no felipa abd pain. No SOB or chest pain. He has continued to feel weak since his recent d/ c. Temp yesterday and today it was higher (101 -> 102). Has been tolerating PO. No n/v. Agree with HPI/ROS as noted by PA. General Appearance: WD/WN, no apparent distress Eye Exam: bilateral eye normal inspection, bilateral eye EOMI, bilateral eye other (normal sclera) Respiratory: normal breath sounds, no respiratory distress Cardiovascular: normal peripheral pulses, regular rate, rhythm Gastrointestinal: non tender, soft, distended Extremities: non-tender, no pedal edema 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: alert, oriented x 3 Skin Characteristics: normal color, warm/dry Assessment/Plan Agree with plan as outlined above Recent septic shock with ICU admission for ecoli UTI Now with PNA noted and fevers on rocephin Concern for HAP, broaden coverage Cr, Hb are improved since d/c Flu neg PRN bladder scan and straight cath
[2017-10-05] MEDS ORDERED: ENAL10TA88 PO (15:12)
[2017-10-05] MEDS ORDERED: HYDR25TA4 PO (15:12)
[2017-10-05] MEDS ORDERED: METO25TA56 PO (15:12)
[2017-10-05] MEDS ORDERED: POLYETHYLENE (MIRALAX) 17 GM PACK PO PRN (15:15)
[2017-10-05] MEDS ORDERED: ONDANSETRON INJ 2 MG/ML 2 ML VIAL IV PRN (15:15)
--- NOTE | 2017-10-05 15:20 | EMERGENCY ROOM VISIT NOTE ---
History Report prepared by Kary: Blaise Smith Under the Supervision of: Dr. Maximo Valdes D.O. First contact with patient: 12:59 Chief Complaint: FEVER History of Present Illness The patient is a 72 year old male who presents to the Emergency Room with complaints of constant fever starting today that got up to 102. The patient is additionally complaining of dark stools, weakness, chills, abdominal pain. The patient states that he was recently in the hospital for a UTI, and he was discharged back to the [facility] three days ago. The patient states that he is still on Rocephin IV, and he is not on any blood thinners. He states that he has chronic leg pain, though it has been worse recently. He reports that his last bowel movement was yesterday. The patient also notes that he has had a catheter in for at least 4 weeks now. Pt denies headache, change in vision, cough, runny nose, chest pain, shortness of breath, nausea, vomiting, diarrhea, pain with urination, melena, and any open wounds or sores. Source of History: patient Onset: today Position: other (global) Quality: other (fever) Timing: constant Associated Symptoms: + chills, + abdominal pain, + weakness Note: Associated symptoms: Dark stools Review of Systems See HPI for pertinent positives & negatives. A total of 10 systems reviewed and were otherwise negative. 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) Current/Historical Medications Scheduled Acetaminophen (Tylenol), 500 MG PO TID Amlodipine (Norvasc), 10 MG PO DAILY Ceftriaxone Sodium (Rocephin), 1 GM IV DAILY Cetirizine (Zyrtec), 10 MG PO DAILY Enalapril (Vasotec), 20 MG PO DAILY Finasteride (Proscar), 5 MG PO DAILY Hydrochlorothiazide (Hctz), 25 MG PO DAILY Lovastatin (Mevacor), 20 MG PO HS Metoprolol Tartrate (Lopressor) (Lopressor), 25 MG PO BID Tamsulosin Hcl (Flomax), 0.4 MG PO BID Allergies Coded Allergies: No Known Allergies (Unverified , 09/17/17) Physical Exam Vital Signs Date Time Temp Pulse Resp B/P (MAP) Pulse Ox O2 Delivery O2 Flow Rate FiO2 10/05/17 14:34 37.3 95 18 133/75 95 Room Air 10/05/17 12:41 107 10/05/17 12:40 38.5 103 20 128/76 96 Room Air Physical Exam GENERAL: Sitting up in bed, alert, ill appearing, EYE EXAM: normal conjunctiva. PERRL and EOM's grossly intact. OROPHARYNX: no exudate, no erythema, lips, buccal mucosa, and tongue normal and mucous membranes are moist NECK: supple, no nuchal rigidity, no adenopathy, non-tender LUNGS: Clear to auscultation. Normal chest wall mechanics HEART: Tachycardic, no murmurs, S1 normal and S2 normal ABDOMEN: abdomen soft, non-tender, normo-active bowel sounds, no masses, no rebound or guarding. BACK: Back is symmetrical on inspection and there is no deformity, no midline tenderness, no CVA tenderness. : Hamm in place. SKIN: no rashes and no bruising UPPER EXTREMITIES: upper extremities are grossly normal. LOWER EXTREMITIES: No pitting edema. NEURO EXAM: Normal sensorium, cranial nerves II-XII grossly intact, normal speech, no gross weakness of arms, chronic weakness in the left lower extremity , no weakness in the right lower extremity. Medical Decision & Procedures ER Provider Diagnostic Interpretation: Radiology results as stated below per my review and the radiologist's interpretation: CHEST ONE VIEW PORTABLE CLINICAL HISTORY: fever COMPARISON STUDY: 09/21/2017 FINDINGS: The heart is mildly enlarged. There is been interval improvement in the previously identified diffuse pulmonary opacities. There are residual/recurrent airspace opacities the axillary portion the right chest and left lung base.[ No pleural effusions are visualized. IMPRESSION: Residual/recurrent airspace opacities within the axillary portion the right chest and left lung base. Electronically signed by: Anthony Sacnhez M.D. 10/05/2017 1:52 PM Dictated Date/Time: 10/05/2017 1:[address] OF THE ABDOMEN AND PELVIS WITHOUT CONTRAST CLINICAL HISTORY: Abdominal pain. Fever. COMPARISON STUDY: CT of the abdomen and pelvis September 23, 2017. TECHNIQUE: Axial images of the abdomen and pelvis were obtained without IV contrast. Images were reviewed in the axial, sagittal, and coronal planes. A dose lowering technique was utilized adhering to the principles of ALARA. FINDINGS: Groundglass opacities within the lungs are again noted. These were shown on exam of September 23, 2017. A small right pleural effusion is slightly increased in size. Evaluation of the abdomen is suboptimal on this unenhanced exam. The liver, spleen, adrenal glands, kidneys and pancreas are unremarkable. There is no biliary or pancreatic ductal dilatation. There is no peripancreatic or pericholecystic infiltration. Note is made of mild anasarca. There is no evidence for a bowel obstruction. The appendix is normal. There is a moderate amount of stool within the colon and rectum. A Hamm balloon and gas are present within the bladder. There is colonic diverticulosis without evidence for acute diverticulitis. No abscess is identified. Presacral infiltration/fluid is again noted. This was shown on previous exam. IMPRESSION: 1. No bowel obstruction. Normal appendix. 2. Moderate amount of stool within the colon and rectum. 3. Colonic diverticulosis without evidence for acute diverticulitis. 4. Evidence for volume overload which was shown on prior exam. Slight increase in size of a small right pleural effusion. 5. Redemonstration of groundglass opacities within lungs which could reflect an infectious process, pulmonary edema or ARDS. Electronically signed by: Gaston Welch M.D. 10/05/2017 2:13 PM Dictated Date/Time: 10/05/2017 2:02 PM Laboratory Results 10/05/17 13:15 Red Blood Count 3.39, Mean Corpuscular Volume 81.4, Mean Corpuscular Hemoglobin 26.8, Mean Corpuscular Hemoglobin Concent 33.0, Mean Platelet Volume 11.2, Neutrophils (%) (Auto) 78.0, Lymphocytes (%) (Auto) 10.7, Monocytes (%) (Auto) 8.2, Eosinophils (%) (Auto) 2.7, Basophils (%) (Auto) 0.1, Neutrophils # (Auto) 7.40, Lymphocytes # (Auto) 1.02, Monocytes # (Auto) 0.78, Eosinophils # (Auto) 0.26, Basophils # (Auto) 0.01 10/05/17 13:15 Test 10/05/17 13:15 10/05/17 13:23 10/05/17 13:29 10/05/17 13:40 White Blood Count 9.50 K/uL (4.8-10.8) Red Blood Count 3.39 M/uL (4.7-6.1) Hemoglobin 9.1 g/dL (14.0-18.0) Hematocrit 27.6 % (42-52) Mean Corpuscular Volume 81.4 fL (80-100) Mean Corpuscular Hemoglobin 26.8 pg (25-34) Mean Corpuscular Hemoglobin Concent 33.0 g/dl (32-36) Platelet Count 280 K/uL (130-400) Mean Platelet Volume 11.2 fL (7.4-10.4) Neutrophils (%) (Auto) 78.0 % Lymphocytes (%) (Auto) 10.7 % Monocytes (%) (Auto) 8.2 % Eosinophils (%) (Auto) 2.7 % Basophils (%) (Auto) 0.1 % Neutrophils # (Auto) 7.40 K/uL (1.4-6.5) Lymphocytes # (Auto) 1.02 K/uL (1.2-3.4) Monocytes # (Auto) 0.78 K/uL (0.11-0.59) Eosinophils # (Auto) 0.26 K/uL (0-0.5) Basophils # (Auto) 0.01 K/uL (0-0.2) RDW Standard Deviation 55.0 fL (36.4-46.3) RDW Coefficient of Variation 18.6 % (11.5-14.5) Immature Granulocyte % (Auto) 0.3 % Immature Granulocyte # (Auto) 0.03 K/uL (0.00-0.02) Prothrombin Time 12.1 SECONDS (9.0-12.0) Prothromb Time International Ratio 1.2 (0.9-1.1) Est Creatinine Clear Calc Drug Dose 26.3 ml/min Estimated GFR () 32.6 Estimated GFR (Non- 28.1 BUN/Creatinine Ratio 12.5 (10-20) Calcium Level 7.6 mg/dl (8.5-10.1) Magnesium Level 1.5 mg/dl (1.8-2.4) Total Bilirubin 1.4 mg/dl (0.2-1) Direct Bilirubin 1.0 mg/dl (0-0.2) Aspartate Amino Transf (AST/SGOT) 43 U/L (15-37) Alanine Aminotransferase (ALT/SGPT) 114 U/L (12-78) Alkaline Phosphatase 335 U/L (45-117) Total Creatine Kinase 35 U/L (39-308) Creatine Kinase MB 0.6 ng/ml (0.5-3.6) Creatine Kinase MB Ratio 1.7 (0-3.0) Troponin I < 0.015 ng/ml (0-0.045) Total Protein 5.8 gm/dl (6.4-8.2) Albumin 1.6 gm/dl (3.4-5.0) Bedside Lactic Acid Venous 1.18 mmol/L (0.90-1.70) Bedside Hemoglobin 8.2 g/dl (14.0-18.0) Bedside Hematocrit 24 % (42-52) Bedside Sodium 136 mEq/L (135-144) Bedside Potassium 3.5 mEq/L (3.3-5.0) Bedside Chloride 103 mEq/L (101-112) Bedside Total CO2 19 mEq/l (24-31) Anion Gap 18.0 mmol/L (16-25) Bedside Blood Urea Nitrogen 23 mg/dl (7-18) Bedside Creatinine 2.6 mg/dl (0.6-1.3) Bedside Glucose (other) 113 mg/dl (70-99) Bedside Ionized Calcium (Meron) 1.09 mmol/l (1.12-1.32) Urine Color YELLOW Urine Appearance CLOUDY (CLEAR) Urine pH 6.0 (4.5-7.5) Urine Specific [place] 1.012 (1.000-1.030) Urine Protein TRACE (NEG) Urine Glucose (UA) NEG (NEG) Urine Ketones NEG (NEG) Urine Occult Blood 1+ (NEG) Urine Nitrite NEG (NEG) Urine Bilirubin NEG (NEG) Urine Urobilinogen NEG (NEG) Urine Leukocyte Esterase LARGE (NEG) Urine WBC (Auto) >30 /hpf (0-5) Urine RBC (Auto) 0-4 /hpf (0-4) Urine Hyaline Casts (Auto) 1-5 /lpf (0-5) Urine Epithelial Cells (Auto) 5-10 /lpf (0-5) Urine Bacteria (Auto) NEG (NEG) Urine Pathogenic Casts /lpf (0) Urine Yeast (Auto) (NONE PRSENT) Influenza Type A Antigen Neg for Influ A (NEG) Influenza Type B Antigen Neg for Influ B (NEG) Laboratory results per my review. Medications Administered Medications (Trade) Dose Ordered Sig/[place]andel[place] Route Start Time Stop Time Status Last Admin Dose Admin Sodium Chloride 2,000 ml @ 999 mls/hr Q2H1M STAT IV 10/05/17 13:18 10/05/17 15:18 10/05/17 13:33 999 MLS/HR Piperacillin Sod/ Tazobactam Sod (Zosyn Iv) 4.5 gm NOW STAT IV 10/05/17 13:21 10/05/17 13:24 DC 10/05/17 13:32 4.5 GM ECG Per My Interpretation Indication: other (fever) Rate (beats per minute): 99 Rhythm: sinus tachycardia Findings: other (Normal axis. Early R wave progression) ED Course ED COURSE: Vital signs were reviewed and showed tachycardic and febrile The patients medical record was reviewed The above diagnostic studies were performed and reviewed. ED treatments and interventions as stated above. 1259: The patient was evaluated in room A3. A complete history and physical examination was performed. 1318: Sodium Chloride 2000 ml @ 999 mls/hr IV 1321: Zosyn 4.5gm IV 1425: Vancomycin HCl 1500mg/ Sodium Chloride 530ml @ 200mls/hr IV, Levofloxacin 750mg IV 1429: I reviewed the patient's case with Dr. Luevano - [facility]. She will evaluate the patient for further management. 1434: Upon reevaluation, the patient is doing okay.I discussed my findings with the patient and he understands and agrees with the treatment plan. Based on the patients age, coexisting illnesses, exam and lab findings the decision to treat as an inpatient was made. The patient remained stable while under my care. The patient will be evaluated for further management. Medical Decision Differential diagnosis: Etiologies such as viral syndrome, otitis, pharyngitis, pneumonia, influenza, meningitis, urinary tract infection, sepsis, bacteremia, as well as others were entertained. Patient is a 72-year-old male who presents to the ER from the [facility] following a recent discharge for urosepsis. Patient has been having persistent fevers for the past 24 hours of 101 or higher. He is currently on IV Rocephin. Previous cultures grew out E. coli. CBC shows an anemia of 9.1. Creatinine is improved at 2.2. LFTs normal bilirubin is improving as well. Troponins negative. Chest x-ray when compared to previous this is just more of a focal process which would likely not be covered by the IV Rocephin. This would be HCAP. CT abdomen pelvis was unchanged. Patient was given IV Levaquin, Zosyn and vancomycin. Patient was also given 2 L normal saline. He was updated at bedside and admitted to internal medicine with persistent fevers and tachycardia while on IV antibiotics. He also does have the possibility of endocarditis with recent bacteremia and recurrent fevers which will also need to be evaluated. Medication Reconcilliation Current Medication List: was personally reviewed by me Blood Pressure Screening Patient's blood pressure: Normal blood pressure Consults Time Called: 1424 Consulting Physician: Dr. Bassem SUAREZ Hospitalist Returned Call: [phone] I reviewed the patient's case with Dr. Bassem SUAREZ Hospitalist. She will evaluate the patient for further management. Impression Primary Impression: Pneumonia Additional Impressions: Fever Anemia Scribe Attestation The scribe's documentation has been prepared under my direction and personally reviewed by me in its entirety. I confirm that the note above accurately reflects all work, treatment, procedures, and medical decision making performed by me. Departure Information Dispostion Being Evaluated By Hospitalist Referrals Jamarcus MURPHY (PCP) Patient Instructions My [facility] Problem Qualifiers Primary Impression: Pneumonia Pneumonia type: due to unspecified organism Laterality: unspecified laterality Lung location: unspecified part of lung Qualified Codes: J18.9 - Pneumonia, unspecified organism Additional Impressions: Fever Fever type: unspecified Qualified Codes: R50.9 - Fever, unspecified Anemia Anemia type: unspecified type Qualified Codes: D64.9 - Anemia, unspecified
[2017-10-05] MEDS ORDERED: SODI650T8 PO (15:23)
[2017-10-05] MEDS ORDERED: PANT40TA PO (15:23)
[2017-10-05] MEDS ORDERED: HYDR-4717 PO (15:23)
[2017-10-05] MEDS ORDERED: ASPI1CHW12 PO (15:23)
[2017-10-05] MEDS ORDERED: IV FLUIDS COMPLETED PRN (15:45)
--- NOTE | 2017-10-05 16:31 | Pharmacy Progress Note ---
Pharmacy Abx Initial Consult Date of Service Oct 05, 2017. Pharmacy Dosing Scope Date of Consult: 10/05/17 Consultation requested by: Flora Pugh Pharmacy is consulted to initiate vancomycin IV dosing therapy, order appropriate labs and adjust drug dose/frequency. Subjective The patient is a 72 year old male admitted on 10/05/17. Objective Height (Feet): 5 Height (Inches): 9.00 Weight (Kilograms): 63.800 Vital Signs (Past 12Hrs) Vital Signs Past 12 Hours Date Time Temp Pulse Resp B/P (MAP) Pulse Ox O2 Delivery O2 Flow Rate FiO2 10/05/17 16:09 37.6 95 18 140/71 94 10/05/17 14:34 37.3 95 18 133/75 95 Room Air 10/05/17 12:41 107 10/05/17 12:40 38.5 103 20 128/76 96 Room Air Lab Results (24Hrs) Laboratory Tests (24 Hours) Test 10/05/17 13:15 10/05/17 16:27 White Blood Count 9.50 K/uL (4.8-10.8) Red Blood Count 3.39 M/uL (4.7-6.1) L Hemoglobin 9.1 g/dL (14.0-18.0) L Hematocrit 27.6 % (42-52) L Mean Corpuscular Volume 81.4 fL (80-100) Mean Corpuscular Hemoglobin 26.8 pg (25-34) Mean Corpuscular Hemoglobin Concent 33.0 g/dl (32-36) Platelet Count 280 K/uL (130-400) Mean Platelet Volume 11.2 fL (7.4-10.4) H Neutrophils (%) (Auto) 78.0 % Lymphocytes (%) (Auto) 10.7 % Monocytes (%) (Auto) 8.2 % Eosinophils (%) (Auto) 2.7 % Basophils (%) (Auto) 0.1 % Neutrophils # (Auto) 7.40 K/uL (1.4-6.5) H Lymphocytes # (Auto) 1.02 K/uL (1.2-3.4) L Monocytes # (Auto) 0.78 K/uL (0.11-0.59) H Eosinophils # (Auto) 0.26 K/uL (0-0.5) Basophils # (Auto) 0.01 K/uL (0-0.2) Total Creatine Kinase 35 U/L (39-308) L Micro Results Date/Time Source Procedure Growth Status 10/05/17 13:17 Blood Blood Culture Pending Received 10/05/17 13:15 Blood Blood Culture Pending Received 10/05/17 13:40 Urine,Catheterized Urine Culture Pending Received Risk Factors for Resistance * Resident in a snf * Hospitalization for 48 hours or more within the past 90 days * Antimicrobial use within the last 90 days Zosyn and Rocephin Assessment & Plan Assessment 72 year old male with a PMH of hepatitis A and BPH and currently on Rocephin for an E coli bacteremia who presents with pneumonia. Plan vancomycin for treatment of HAP Vancomycin IV * Loading dose: 1500 mg (23.5 mg/kg) * Maintenance dose: 1000 mg IV (15 mg/kg) every 24 hours * Goal trough level for pneumonia : 15 to 20 mcg/mL * Trough ordered for 10/07/17 PRIOR to fourth dose please note will not be at steady state * An extended dosing interval has been selected due to likelihood of drug accumulation in patient with h/o CKD. Pharmacy will continue to follow and will adjust dose/frequency as necessary. Thank you.
[2017-10-05] MEDS: ALBUT/IPRATROP 3MG/0.5MG NEB 3 ML VIAL INH SCH (18:58)
[2017-10-05 18:59] VITALS: PULSE 93; O2SAT 95
[2017-10-05 19:00] VITALS: BP 137/76; PULSE 116; TEMP 37.8; O2SAT 95
[2017-10-05 19:01] VITALS: Ht 175.3 cm; Wt 66.7 kg
[2017-10-05 19:02] VITALS: BP 137/76; PULSE 116; TEMP 37.8
[2017-10-05 19:11] VITALS: O2SAT 94
[2017-10-05 20:00] VITALS: O2SAT 94
[2017-10-05] MEDS: PANTOprazole SOD 40 MG TAB PO SCH (21:02)
[2017-10-05] MEDS: TAMSULOSIN HCL 0.4 MG CAP PO SCH (21:03)
[2017-10-05] MEDS: LOVASTATIN 20 MG TAB PO SCH (21:04)
[2017-10-05] MEDS: METOPROLOL TARTRATE 50 MG TAB PO SCH (21:04)
[2017-10-05] MEDS: SODIUM BICARBONATE 650 MG TAB PO SCH (21:05)
[2017-10-05] MEDS: HEPARIN SOD 5000 UNIT/0.5 ML CARP SQ SCH (21:06)
[2017-10-05] MEDS ORDERED: PHARMACY GLYCEMIC MGMT CONSULT PRN (22:07)
[2017-10-05] MEDS ORDERED: INSULIN GLARGINE SOLOSTAR 100 UNITS/ML 3 ML PEN SC ONE (22:45)
[2017-10-05] MEDS ORDERED: DEXTROSE 50% 50 ML SYR IV PRN (23:30)
[2017-10-05] MEDS ORDERED: GLUCOSE 10 TABS/TUBE PO PRN (23:30)
[2017-10-05] MEDS ORDERED: GLUCAGON FOR INJ 1 MG VIAL SQ PRN (23:30)
[2017-10-05] MEDS ORDERED: GLUCOSE 40% GEL 15 GM TUBE PO PRN (23:30)
[2017-10-05] MEDS: INSULIN ASPART 100 UNITS/ML 3 ML PEN SC SCH (23:45)
[2017-10-05] MEDS: ACETAMINOPHEN 325 MG TAB PO PRN (23:49)
[2017-10-05 23:59] VITALS: O2SAT 94
[2017-10-06] VITALS (17 sets, daily range): BP systolic 105–145; BP diastolic 63–77; PULSE 88–124; TEMP 37.2–39.5; O2SAT 93–98
[2017-10-06] MEDS ORDERED: INSULIN ASPART 100 UNITS/ML 3 ML PEN SC ONE (02:00)
--- NOTE | 2017-10-06 02:53 | Pharmacy Progress Note ---
Glycemic Control Intl Consult Date of Service Oct 06, 2017. Scope Glycemic Pharmacist consulted by Dr Franklin on 10/05/17 for glycemic control and to write orders per [facility] inpatient glycemic control protocol Objective Weight (Kilograms): 63.800 Accuchecks BSG (last 24hrs): Test 10/05/17 13:15 10/05/17 20:14 10/05/17 23:43 10/06/17 01:55 Random Glucose 109 mg/dl (70-99) Bedside Glucose 206 mg/dl (70-99) 98 mg/dl (70-99) 115 mg/dl (70-99) Laboratory Data (last 24hrs) Test 10/05/17 13:15 10/05/17 13:29 Anion Gap 9.0 mmol/L 18.0 mmol/L BUN/Creatinine Ratio 12.5 Blood Urea Nitrogen 28 mg/dl Creatinine 2.22 mg/dl Potassium Level 3.5 mmol/L Sodium Level 136 mmol/L White Blood Count 9.50 K/uL Red Blood Count 3.39 M/uL Hemoglobin 9.1 g/dL Hematocrit 27.6 % Mean Corpuscular Volume 81.4 fL Mean Corpuscular Hemoglobin 26.8 pg Mean Corpuscular Hemoglobin Concent 33.0 g/dl Platelet Count 280 K/uL Mean Platelet Volume 11.2 fL Neutrophils (%) (Auto) 78.0 % Lymphocytes (%) (Auto) 10.7 % Monocytes (%) (Auto) 8.2 % Eosinophils (%) (Auto) 2.7 % Basophils (%) (Auto) 0.1 % Neutrophils # (Auto) 7.40 K/uL Lymphocytes # (Auto) 1.02 K/uL Monocytes # (Auto) 0.78 K/uL Eosinophils # (Auto) 0.26 K/uL Basophils # (Auto) 0.01 K/uL Recent Pertinent Medications Outpatient Anti-diabetic Regimen: * Amaryl 4mg Risk Factors for Insulin Resistance: * Steroids: Prednisone taper [employer] * Infection: HAP Assessment & Plan ASSESSMENT: * Mr. Emmanuel is a 72 yo M being treated with Vanco/LVQ for HAP. There is no previous glycemic data on him. A1C ordered for 10/06/17 @ 0444. He is not currently ordered a diet. [employer] he finished a prednisone taper. Will trial wt/st of 2. PLAN FOR INPATIENT GLYCEMIC CONTROL: * Holding outpatient oral diabetes medications * Basal insulin with LANTUS 11u x1 * Correctional Insulin with NOVOLOG Q6hrs + check at 0200 x1 * Goal Range: Low 110 mg/dL - High 140 mg/dL * Correction Factor: 35 mg/dL/unit * Nutritional / Prandial insulin per carb ratio of 1 unit per 12 grams CHO consumed * Please note that the plan above was derived based on current level of insulin resistance and hospital stress. These recommendations are appropriate for inpatient admission only. Plan of care upon discharge will need to be reassessed to avoid potential outpatient hypo/hyperglycemia. Thank you.
[2017-10-06] MEDS: INSULIN ASPART 100 UNITS/ML 3 ML PEN SC SCH ×5 (05:31→21:00)
[2017-10-06] MEDS: HEPARIN SOD 5000 UNIT/0.5 ML CARP SQ SCH ×3 (05:33→21:03)
[2017-10-06 05:59] LABS: BASO % 0.3 %; BASO ABS # 0.03 K/uL (0-0.2); EOS % 1.6 %; EOS ABS # 0.15 K/uL (0-0.5); HEMATOCRIT 27.8 % (42-52); HEMOGLOBIN 9.1 g/dL (14.0-18.0); IG# 0.03 K/uL (0.00-0.02); LYMPH % 10.6 %; LYMPH ABS # 1.01 K/uL (1.2-3.4); MEAN CORPUSCULAR HEMOGLOBIN 26.5 pg (25-34); MEAN CORPUSCULAR HGB CONC 32.7 g/dl (32-36); MEAN PLATELET VOLUME 10.7 fL (7.4-10.4); MONO % 7.3 %; NEUT % 79.9 %; NEUT ABS # 7.64 K/uL (1.4-6.5); PLATELET COUNT 276 K/uL (130-400); RED CELL DISTRIBUTION WIDTH CV 18.4 % (11.5-14.5); RED CELL DISTRIBUTION WIDTH SD 54.3 fL (36.4-46.3); WHITE BLOOD COUNT 9.56 K/uL (4.8-10.8)
[2017-10-06 06:37] LABS: ALBUMIN 1.5 gm/dl (3.4-5.0); CALCIUM 7.3 mg/dl (8.5-10.1); CREATININE 2.3 mg/dl (0.60-1.40); POTASSIUM 3.5 mmol/L (3.5-5.1)
[2017-10-06 06:39] LABS: TOTAL PROTEIN 5.6 gm/dl (6.4-8.2)
[2017-10-06 06:45] LABS: HEMOGLOBIN A1C 5.1 % (4.5-5.6)
[2017-10-06] MEDS: ALBUT/IPRATROP 3MG/0.5MG NEB 3 ML VIAL INH SCH ×4 (07:15→19:04)
[2017-10-06] MEDS: PANTOprazole SOD 40 MG TAB PO SCH ×2 (07:46→21:02)
[2017-10-06] MEDS: ACETAMINOPHEN 325 MG TAB PO PRN ×2 (07:46→17:03)
[2017-10-06] MEDS: ASPIRIN 81 MG CHEW PO SCH (07:46)
[2017-10-06] MEDS: AMLODIPINE BESYLATE 5 MG TAB PO SCH (07:47)
[2017-10-06] MEDS: METOPROLOL TARTRATE 50 MG TAB PO SCH ×2 (07:47→21:02)
[2017-10-06] MEDS: CETIRIZINE HCL 10 MG TAB PO SCH (07:47)
[2017-10-06] MEDS: TAMSULOSIN HCL 0.4 MG CAP PO SCH ×2 (07:47→21:02)
[2017-10-06] MEDS: SODIUM BICARBONATE 650 MG TAB PO SCH ×2 (07:48→21:02)
[2017-10-06] MEDS: FINASTERIDE 5 MG TAB PO SCH (07:48)
[2017-10-06] MEDS ORDERED: HYDROmorphone INJ 1 MG/ML SYR IV STA (10:05)
[2017-10-06 11:00] LABS: INFLUENZA A PCR Neg for Influ A (NEG); INFLUENZA B PCR Neg for Influ B (NEG)
--- NOTE | 2017-10-06 11:06 | Pharmacy Progress Note ---
Pharmacy Glycemic Short Note 2 Date of Service Oct 06, 2017. OUTPATIENT ANTIDIABETIC REGIMEN: * None (previously, pt has taken Amaryl) * HbA1c: 5.1% (10/06/17) ASSESSMENT: * Mr Emmanuel is a 72yo diabetic male admitted with fever/PNA. * BSG elevated yesterday, which could be d/t recent completion of steroid taper as an outpt. * A1c indicates that patient's DM is well-managed w/o the use of medications currently. * Expect that Novolog for correction when/if needed will be sufficient. PLAN FOR INPATIENT GLYCEMIC CONTROL: * Hold outpatient oral diabetes medications * Basal insulin * Lantus 11units x1 dose given last evening * None further for now * Bolus insulin * NovoLog per scale ACHS or Q6hrs while NPO * Goal Range: Low 110 mg/dL - High 140 mg/dL * Correction Factor: 30 mg/dL/unit * Nutritional / Prandial insulin: None for now. Will consider adding if BSGs rise. PLAN FOR DISCHARGE: * Current A1c: 5.1% * Do not anticipate that patient will require the addition of any diabetic medications on discharge.
[2017-10-06] MEDS: SODIUM CHLORIDE 0.9% 1000ML 1,000 ML IV SCH (11:52)
[2017-10-06] MEDS ORDERED: CEFEPIME IV 1,000 MG in SYRINGE 0 ML IV SCH (12:00)
[2017-10-06] MEDS ORDERED: CEFEPIME CONSULT ACTIVE PRN (13:00)
--- NOTE | 2017-10-06 13:48 | DIAGNOSTIC IMAGING REPORT ---
ULTRASOUND L VENOUS DOPP LOWER EXT UNILAT CLINICAL HISTORY: Pain, swelling COMPARISON STUDY: No previous studies for comparison. FINDINGS: Real-time and color flow Doppler imaging were performed. Flow was seen within the femoral, popliteal and calf veins with no intraluminal thrombus demonstrated. The saphenous vein is patent. IMPRESSION: No evidence of left lower extremity DVT. Electronically signed by: Anthony Sanchez M.D. 10/06/2017 1:46 PM Dictated Date/Time: 10/06/2017 1:45 PM
--- NOTE | 2017-10-06 14:31 | Medical Student: [facility] ---
Med Student Progress Note Date of Service Oct 06, 2017. Subjective Pt evaluation today including: conversation w/ patient, physical exam, chart review, lab review Voiding: vega catheter in place (indwelling Vega) Brett is a 72-year-old male with a history of hepatitis A, HTN, BPH, and OA who was recently admitted for urosepsis from 09/17 to 10/01. He was discharged on IV ceftriaxone for concerns of prostatitis. Became increasingly weak and fatigued and on 10/05, he spiked a fever of 102. Complained of SOB and congestion. Chest CT shows ground glass opacities suggestive of pneumonia, pulmonary edema, or ARDS. He was placed on levofloxacin and vancomycin. Brett was seen at the bedside this AM and complains primarily of weakness and left-sided pain in his thigh, saying the pain prevents him from lying on his left side or ambulating. Denies dyspnea and reports improvement in his cough. He is not using oxygen. States that he has some congestion. Denies chest pain, N /V/D/C. Has a Vega in place and denies any problems with it. Had a BM last night, but says it was dark and sticky. Temperatures were elevated this AM at 0729 at 38.4 and at the bedside around 1155 at 37.8. Brett reports subjective fevers, chills, and sweats. Reports a poor appetite and is only consuming fluids. Objective Vital Signs Date Time Temp Pulse Resp B/P (MAP) Pulse Ox O2 Delivery O2 Flow Rate FiO2 10/06/17 12:00 Room Air 10/06/17 11:55 37.8 88 18 125/73 (90) 96 Room Air 10/06/17 11:32 93 17 98 Room Air 10/06/17 08:57 37.7 10/06/17 08:00 Room Air 10/06/17 07:29 38.4 97 18 145/74 (97) 97 10/06/17 07:18 104 16 96 Room Air 10/06/17 04:00 94 Room Air 10/06/17 03:50 37.5 94 17 113/66 (82) 97 Room Air 10/06/17 02:00 37.3 10/06/17 00:01 39.5 95 20 116/72 (87) 97 Room Air 10/05/17 23:59 94 Room Air 10/05/17 20:00 94 Room Air 10/05/17 19:11 94 Room Air 10/05/17 19:02 37.8 116 18 137/76 10/05/17 19:00 37.8 116 18 137/76 (96) 95 Room Air 10/05/17 18:59 93 16 95 Room Air 10/05/17 16:09 37.6 95 18 140/71 94 10/05/17 14:34 37.3 95 18 133/75 95 Room Air Physical Exam General Appearance: WD/WN, + mild distress (lying on his right side, appeared uncomfortable) ENT: hearing grossly normal Neck: supple, no adenopathy, thyroid normal Respiratory/Chest: chest non-tender, lungs clear, no respiratory distress, no accessory muscle use, + decreased breath sounds Cardiovascular: regular rate, rhythm, no edema, no gallop, no JVD, no murmur Abdomen: normal bowel sounds, non tender, soft Extremities: no pedal edema, no calf tenderness, + pertinent finding (some pain with palpation of left leg) Laboratory Results Last 24 Hours Test 10/05/17 20:14 10/05/17 23:43 10/06/17 01:55 10/06/17 05:28 Bedside Glucose 206 mg/dl 98 mg/dl 115 mg/dl 88 mg/dl Test 10/06/17 05:35 10/06/17 09:45 10/06/17 11:25 White Blood Count 9.56 K/uL Red Blood Count 3.43 M/uL Hemoglobin 9.1 g/dL Hematocrit 27.8 % Mean Corpuscular Volume 81.0 fL Mean Corpuscular Hemoglobin 26.5 pg Mean Corpuscular Hemoglobin Concent 32.7 g/dl Platelet Count 276 K/uL Mean Platelet Volume 10.7 fL Neutrophils (%) (Auto) 79.9 % Lymphocytes (%) (Auto) 10.6 % Monocytes (%) (Auto) 7.3 % Eosinophils (%) (Auto) 1.6 % Basophils (%) (Auto) 0.3 % Neutrophils # (Auto) 7.64 K/uL Lymphocytes # (Auto) 1.01 K/uL Monocytes # (Auto) 0.70 K/uL Eosinophils # (Auto) 0.15 K/uL Basophils # (Auto) 0.03 K/uL RDW Standard Deviation 54.3 fL RDW Coefficient of Variation 18.4 % Immature Granulocyte % (Auto) 0.3 % Immature Granulocyte # (Auto) 0.03 K/uL Sodium Level 137 mmol/L Potassium Level 3.5 mmol/L Chloride Level 107 mmol/L Carbon Dioxide Level 19 mmol/L Anion Gap 11.0 mmol/L Blood Urea Nitrogen 23 mg/dl Creatinine 2.30 mg/dl Est Creatinine Clear Calc Drug Dose 25.2 ml/min Estimated GFR () 31.3 Estimated GFR (Non- 27.0 BUN/Creatinine Ratio 10.2 Random Glucose 89 mg/dl Estimated Average Glucose 100 mg/dl Hemoglobin A1c 5.1 % Hemoglobin A1c Pathologist Comment Calcium Level 7.3 mg/dl Total Bilirubin 1.6 mg/dl Direct Bilirubin 0.9 mg/dl Aspartate Amino Transf (AST/SGOT) 37 U/L Alanine Aminotransferase (ALT/SGPT) 91 U/L Alkaline Phosphatase 294 U/L Total Protein 5.6 gm/dl Albumin 1.5 gm/dl Influenza Type A (RT-PCR) Neg for Influ A Influenza Type B (RT-PCR) Neg for Influ B Bedside Glucose 84 mg/dl Assessment and Plan Assessment and Plan: In summary, Brett is a 72 year old man with history of hepatitis A, HTN, and BPH who presented to the ED on 10/05 with fatigue, cough, SOB, and fevers. Was recently admitted from 09/17- for urosepsis and was sent home on a twenty day course of IV ceftriaxone. Health care-associated pneumonia -IV levofloxacin 750 mg and vancomycin 1 g started -however, patient is still spiking fevers and is complaining of weakness and poor appetite -add IV cefepime 1 g to double cover for Pseudomonas, the possible infection responsible for his illness given that he developed PNA in the setting of IV ceftriaxone use Hepatitis A -total bili 1.6, direct bili 0.9, AST 37, ALT 91, alkaline phosphatase 234 -continue to monitor LFTs - total bili is increased from 1.4 on 10/05; all other values are trending down HTN - Continue on metoprolol 50 mg po BID, hydralazine 50 mg po TID, amlodipine 10 mg po qD BPH -Continue tamsulosin 0.4 mg po BID and finasteride 5 mg po qD HLD -continue lovastatin 20 mg po qHS GERD -continue pantoprazole 40 mg po BID
[2017-10-06] MEDS ORDERED: VANCOMYCIN IV 1,000 MG in SODIUM CHLORIDE 0.9% 250ML 250 ML IV SCH (15:00)
[2017-10-06] MEDS ORDERED: NURSING VERBAL MED ORDER STA (18:49)
[2017-10-06] MEDS ORDERED: HYDROmorphone INJ 1 MG/ML SYR IV ONE (19:04)
[2017-10-06] MEDS ORDERED: CEFEPIME IV 1,000 MG in DEXTROSE 5% 100ML 100 ML IV SCH (21:00)
[2017-10-06] MEDS: LOVASTATIN 20 MG TAB PO SCH (21:02)
--- NOTE | 2017-10-06 21:56 | Progress Note ---
Subjective Date of Service: Oct 06, 2017. Subjective Pt evaluation today including: conversation w/ patient, physical exam, lab review, review of studies, review of inpatient medication list Pain: left leg PO Intake: poor appetite Voiding: vega catheter in place patient with no dyspnea, no cough, he did have a fever reviewed labs, Cr stable at 2.3, WBC normal, LFT trending down from last admission UA with WBC, need to follow up on cultures Reviewed CT abdomen/pelvis personally continues to have fevers, HR going up, c/o 9 out of 10 pain in left leg Problem List Medical Problems: (1) Acute renal failure Status: Acute (2) Hyperbilirubinemia Status: Acute (3) Leukocytosis Status: Acute (4) UTI (urinary tract infection) Status: Acute Review of Systems Constitutional: + fever, + chills, + weakness, + fatigue Musculoskeletal: + joint pain (left hip, left knee, chronic) All Other Systems: Reviewed and Negative Medications Current Inpatient Medications Medications (Trade) Dose Ordered Sig/Candelaria Route Start Time Stop Time Status Last Admin Dose Admin Heparin Sodium (Porcine) (Heparin Sq 5000 Unit/0.5ml) 5,000 unit Q8 SQ 10/05/17 22:00 11/04/17 21:59 10/06/17 14:22 5,000 UNIT Acetaminophen (Tylenol Tab) 650 mg Q4H PRN PO 10/05/17 15:15 11/04/17 15:14 10/06/17 07:46 650 MG Ondansetron HCl (Zofran Inj) 4 mg Q6H PRN IV 10/05/17 15:15 11/04/17 15:14 Polyethylene (Miralax Powder Packet) 17 gm DAILY PRN PO 10/05/17 15:15 11/04/17 15:14 Amlodipine Besylate (Norvasc Tab) 10 mg DAILY PO 10/06/17 09:00 11/05/17 08:59 10/06/17 07:47 10 MG Aspirin (Aspirin Chew) 81 mg DAILY PO 10/06/17 09:00 11/05/17 08:59 10/06/17 07:46 81 MG Cetirizine HCl (zyrTEC TAB) 10 mg DAILY PO 10/06/17 09:00 11/05/17 08:59 10/06/17 07:47 10 MG Finasteride (Proscar Tab) 5 mg DAILY PO 10/06/17 09:00 11/05/17 08:59 10/06/17 07:48 5 MG Hydralazine HCl (Apresoline Tab) 50 mg TID PO 10/05/17 21:00 11/04/17 20:59 10/06/17 14:21 50 MG Lovastatin (Mevacor Tab) 20 mg HS PO 10/05/17 21:00 11/04/17 20:59 10/05/17 21:04 20 MG Metoprolol Tartrate (Lopressor Tab) 50 mg BID PO 10/05/17 21:00 11/04/17 20:59 10/06/17 07:47 50 MG Pantoprazole Sodium (Protonix Tab) 40 mg BID PO 10/05/17 21:00 11/04/17 20:59 10/06/17 07:46 40 MG Sodium Bicarbonate (Sodium Bicarbonate Tab) 1,300 mg BID PO 10/05/17 21:00 11/04/17 20:59 10/06/17 07:48 1,300 MG Tamsulosin HCl (Flomax Cap) 0.4 mg BID PO 10/05/17 21:00 11/04/17 20:59 10/06/17 07:47 0.4 MG Miscellaneous (Iv Fluids Completed) 1 ea PRN PRN N/A 10/05/17 15:45 10/05/18 15:44 Levofloxacin 750 mg/Prmx 150 ml @ 100 mls/hr Q48H IV 10/07/17 16:00 10/12/17 15:59 Albuterol/ Ipratropium (Duoneb) 3 ml QIDR INH 10/05/17 20:00 11/04/17 19:59 10/06/17 14:40 3 ML Miscellaneous Information (Consult Glycemic Management Pharmacy) 1 ea UD PRN N/A 10/05/17 22:07 11/04/17 22:06 Glucose (Glucose 40% Gel) 15-30 GRAMS 15 GRAMS... UD PRN PO 10/05/17 23:30 11/04/17 23:29 Glucose (Glucose Chew Tab) 4-8 Tablets 4 Tabl... UD PRN PO 10/05/17 23:30 3/22/18 23:29 Dextrose (Dextrose 50% 50ML Syringe) 25-50ML OF 50% DW IV FOR... UD PRN IV 10/05/17 23:30 11/04/17 23:29 Glucagon (Glucagon Inj) 1 mg UD PRN SQ 10/05/17 23:30 11/04/17 23:29 Insulin Aspart (novoLOG ASPART) SLIDING SCALE ACHS SC 10/06/17 07:00 11/05/17 00:00 Sodium Chloride 1,000 ml @ 75 mls/hr [id number] IV 10/06/17 11:45 11/05/17 11:44 10/06/17 11:52 75 MLS/HR Cefepime HCl (Consult) 1 ea UD PRN N/A 10/06/17 13:00 11/05/17 12:59 Cefepime HCl 500 mg/Syringe 5.5 ml @ 5.5 mls/min Q24H IV 10/07/17 12:00 10/13/17 11:59 Objective Vital Signs Date Time Temp Pulse Resp B/P (MAP) Pulse Ox O2 Delivery O2 Flow Rate FiO2 10/06/17 14:40 94 18 94 Room Air 10/06/17 12:00 Room Air 10/06/17 11:55 37.8 88 18 125/73 (90) 96 Room Air 10/06/17 11:32 93 17 98 Room Air 10/06/17 08:57 37.7 10/06/17 08:00 Room Air 10/06/17 07:29 38.4 97 18 145/74 (97) 97 10/06/17 07:18 104 16 96 Room Air 10/06/17 04:00 94 Room Air 10/06/17 03:50 37.5 94 17 113/66 (82) 97 Room Air 10/06/17 02:00 37.3 10/06/17 00:01 39.5 95 20 116/72 (87) 97 Room Air 10/05/17 23:59 94 Room Air 10/05/17 20:00 94 Room Air 10/05/17 19:11 94 Room Air 10/05/17 19:02 37.8 116 18 137/76 10/05/17 19:00 37.8 116 18 137/76 (96) 95 Room Air 10/05/17 18:59 93 16 95 Room Air 10/05/17 16:09 37.6 95 18 140/71 94 Physical Exam General Appearance: WD/WN, no apparent distress Eyes: normal inspection, EOMI, sclerae normal ENT: normal ENT inspection, hearing grossly normal, pharynx normal Neck: supple, no adenopathy, no JVD, trachea midline Respiratory/Chest: chest non-tender, lungs clear, normal breath sounds, no respiratory distress, no accessory muscle use Cardiovascular: regular rate, rhythm, no edema, no gallop, no JVD, no murmur Abdomen: normal bowel sounds, non tender, soft, no organomegaly Extremities: normal range of motion, normal inspection, no pedal edema, no calf tenderness, pelvis stable, + pertinent finding (left thigh slightly tender to palpation) 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: 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 II-XII nml as tested, no motor/sensory deficits, alert, normal mood/affect, oriented x 3 Skin: normal color, warm/dry, no rash Laboratory Results Last 24 Hours Test 10/05/17 20:14 10/05/17 23:43 10/06/17 01:55 10/06/17 05:28 Bedside Glucose 206 mg/dl 98 mg/dl 115 mg/dl 88 mg/dl Test 10/06/17 05:35 10/06/17 09:45 10/06/17 11:25 White Blood Count 9.56 K/uL Red Blood Count 3.43 M/uL Hemoglobin 9.1 g/dL Hematocrit 27.8 % Mean Corpuscular Volume 81.0 fL Mean Corpuscular Hemoglobin 26.5 pg Mean Corpuscular Hemoglobin Concent 32.7 g/dl Platelet Count 276 K/uL Mean Platelet Volume 10.7 fL Neutrophils (%) (Auto) 79.9 % Lymphocytes (%) (Auto) 10.6 % Monocytes (%) (Auto) 7.3 % Eosinophils (%) (Auto) 1.6 % Basophils (%) (Auto) 0.3 % Neutrophils # (Auto) 7.64 K/uL Lymphocytes # (Auto) 1.01 K/uL Monocytes # (Auto) 0.70 K/uL Eosinophils # (Auto) 0.15 K/uL Basophils # (Auto) 0.03 K/uL RDW Standard Deviation 54.3 fL RDW Coefficient of Variation 18.4 % Immature Granulocyte % (Auto) 0.3 % Immature Granulocyte # (Auto) 0.03 K/uL Sodium Level 137 mmol/L Potassium Level 3.5 mmol/L Chloride Level 107 mmol/L Carbon Dioxide Level 19 mmol/L Anion Gap 11.0 mmol/L Blood Urea Nitrogen 23 mg/dl Creatinine 2.30 mg/dl Est Creatinine Clear Calc Drug Dose 25.2 ml/min Estimated GFR () 31.3 Estimated GFR (Non- 27.0 BUN/Creatinine Ratio 10.2 Random Glucose 89 mg/dl Estimated Average Glucose 100 mg/dl Hemoglobin A1c 5.1 % Hemoglobin A1c Pathologist Comment Calcium Level 7.3 mg/dl Total Bilirubin 1.6 mg/dl Direct Bilirubin 0.9 mg/dl Aspartate Amino Transf (AST/SGOT) 37 U/L Alanine Aminotransferase (ALT/SGPT) 91 U/L Alkaline Phosphatase 294 U/L Total Protein 5.6 gm/dl Albumin 1.5 gm/dl Influenza Type A (RT-PCR) Neg for Influ A Influenza Type B (RT-PCR) Neg for Influ B Bedside Glucose 84 mg/dl Assessment and Plan This is a 72 yo M with PMHx of hepatitis A, HTN, BPH, osteoarthritis, who was recently admitted to [facility] from 09/17-10/01 for urosepsis due to pansentivie Ecoli, acute renal failure and elevated LFTs. He was discharged on IV ceftriaxone for another 20 days for prostatitis. The patient reports that since being discharged he has felt increasingly generalized fatigue and weakness, and spiked a fever of 102 today. Patient notes he has had increasing shortness of breath with minimal activity. - HCAP: evidence of ground glass opacities on CT chest, dyspnea, fever, however , WBC normal on previous admission he had ARDS, was much more hypoxic requiring BIPAP, no on room air continued with fevers despite Levaquin and Vancomycin, added Cefepime flu was negative repeat labs tomorrow, procalcitonin was only 1 - Recent E coli UTI with prostatitis, recent bacteremia with severe sepsis check urine and blood cultures continue broad spectrum antibiotics - Recent SONY, ATN: Cr is improving since last admission, down to 2.3, adequate UO - Transaminitis: LFT continue to trend down, supporting diagnosis of hepatitis due to sepsis from last admission serology studies were sent last admission, were normal - Left leg pain: negative for DVT, says pain is chronic from an injury - Recent GI bleed with gastric ulcer: Hb stable, no signs of bleeding continue Protonix - Persistent fevers: repeat procalcitonin, check CRP and sed rate tomorrow HTN - Continue metoprolol tartrate 50 mg BID, hydralazine 50 mg TID, amlodipine 10 mg daily, asa 81 mg daily BPH - Indwelling vega needs changed this admission - it has been approximately 4 weeks since last change was completed. - Continue flomax Hx hepatitis A - LFTs are improved compared to previous admission, trend daily x 3 more days. Osteoarthritis - Continue tylenol for pain in left hip DVT ppx: Teds, scd, heparin subq CODE STATUS: DNR Disposition: From [facility], to assist with dc planning
[2017-10-07] VITALS (14 sets, daily range): BP systolic 100–133; BP diastolic 61–71; PULSE 70–123; TEMP 37–39.1; O2SAT 94–98
[2017-10-07] MEDS: ACETAMINOPHEN 325 MG TAB PO PRN ×2 (00:19→06:37)
[2017-10-07] MEDS: SODIUM CHLORIDE 0.9% 1000ML 1,000 ML IV SCH ×2 (01:30→14:13)
[2017-10-07 06:04] LABS: BASO % 0.2 %; BASO ABS # 0.02 K/uL (0-0.2); EOS % 1.8 %; EOS ABS # 0.16 K/uL (0-0.5); HEMATOCRIT 26.8 % (42-52); HEMOGLOBIN 8.9 g/dL (14.0-18.0); IG# 0.02 K/uL (0.00-0.02); LYMPH % 11.3 %; LYMPH ABS # 1.01 K/uL (1.2-3.4); MEAN CELL VOLUME 81.5 fL (80-100); MEAN CORPUSCULAR HEMOGLOBIN 27.1 pg (25-34); MEAN CORPUSCULAR HGB CONC 33.2 g/dl (32-36); MEAN PLATELET VOLUME 10.2 fL (7.4-10.4); MONO % 8.3 %; MONO ABS # 0.74 K/uL (0.11-0.59); NEUT % 78.2 %; NEUT ABS # 6.97 K/uL (1.4-6.5); PLATELET COUNT 271 K/uL (130-400); RED CELL DISTRIBUTION WIDTH CV 18.3 % (11.5-14.5); RED CELL DISTRIBUTION WIDTH SD 54.7 fL (36.4-46.3); WHITE BLOOD COUNT 8.92 K/uL (4.8-10.8)
[2017-10-07] MEDS: HEPARIN SOD 5000 UNIT/0.5 ML CARP SQ SCH ×3 (06:36→20:57)
[2017-10-07 06:45] LABS: ALBUMIN 1.5 gm/dl (3.4-5.0); CALCIUM 7.5 mg/dl (8.5-10.1); CREATININE 2.32 mg/dl (0.60-1.40); POTASSIUM 3.7 mmol/L (3.5-5.1); TOTAL PROTEIN 5.5 gm/dl (6.4-8.2)
[2017-10-07] MEDS: INSULIN ASPART 100 UNITS/ML 3 ML PEN SC SCH ×4 (07:00→20:42)
[2017-10-07] MEDS: ALBUT/IPRATROP 3MG/0.5MG NEB 3 ML VIAL INH SCH ×4 (07:13→18:48)
[2017-10-07] MEDS: PANTOprazole SOD 40 MG TAB PO SCH ×2 (08:04→20:55)
[2017-10-07] MEDS: AMLODIPINE BESYLATE 5 MG TAB PO SCH (08:04)
[2017-10-07] MEDS: SODIUM BICARBONATE 650 MG TAB PO SCH ×2 (08:04→20:54)
[2017-10-07] MEDS: METOPROLOL TARTRATE 50 MG TAB PO SCH ×2 (08:04→20:42)
[2017-10-07] MEDS: FINASTERIDE 5 MG TAB PO SCH (08:05)
[2017-10-07] MEDS: ASPIRIN 81 MG CHEW PO SCH (08:05)
[2017-10-07] MEDS: CETIRIZINE HCL 10 MG TAB PO SCH (08:05)
[2017-10-07] MEDS: TAMSULOSIN HCL 0.4 MG CAP PO SCH ×2 (08:05→20:54)
--- NOTE | 2017-10-07 10:59 | Medical Student: [facility] ---
Med Student Progress Note Date of Service Oct 07, 2017. Subjective Pt evaluation today including: conversation w/ patient, physical exam, chart review, lab review Pain: persistent left leg pain PO Intake: fluids; poor appetite Voiding: vega catheter in place Brett is a 72-year-old male with a past history of hepatitis A, BPH, and OA and a recent history of acute renal failure and UTI with bacteremia admitted on for fever and chills. Found to have ground glass opacities on CT. He was diagnosed with HCAP and was started on levofloxacin and vancomycin on 10/05. Was still spiking fevers on 10/06 and had IV cefepime added for extra Pseudmonas coverage. Overnight Brett continued to be febrile, with temperatures ranging from 37.9- 38.5 in the early AM. He was seen at the bedside this morning. He is still feeling weak, reports feeling feverish and having chills overnight. Reports no change in his weakness. Denies night sweats. Appetite is still low - will only consume fluids. Reports persistent left leg pain from yesterday. Has a Vega catheter and is having no pain or issues with it. Denies abdominal pain. Review of Systems Constitutional: + fever, + chills, + weakness, + fatigue Respiratory: + cough Cardiac: No chest pain Abdomen: No pain, No nausea, No vomiting, No diarrhea, No constipation Objective Vital Signs Date Time Temp Pulse Resp B/P (MAP) Pulse Ox O2 Delivery O2 Flow Rate FiO2 10/07/17 07:27 37.6 107 18 125/68 (87) 95 Room Air 10/07/17 07:13 105 18 97 Room Air 10/07/17 06:16 38.5 10/07/17 04:00 94 Room Air 10/07/17 03:45 37.9 97 16 128/68 (88) 98 Room Air 10/07/17 01:33 38.0 10/07/17 00:00 94 Room Air 10/06/17 23:35 38.7 94 16 124/69 (87) 96 Room Air 10/06/17 20:00 37.9 121 18 105/63 (77) 96 Room Air 10/06/17 20:00 94 Room Air 10/06/17 19:04 124 18 97 Room Air 10/06/17 18:35 39.1 10/06/17 16:59 38.9 124 20 144/74 (97) 94 Room Air 10/06/17 16:00 93 Room Air 10/06/17 15:09 37.2 103 16 138/77 (97) 93 Room Air 10/06/17 14:40 94 18 94 Room Air 10/06/17 12:00 Room Air 10/06/17 11:55 37.8 88 18 125/73 (90) 96 Room Air 10/06/17 11:32 93 17 98 Room Air Physical Exam General Appearance: + pertinent finding (lethargic appearing) Neck: supple, no adenopathy, thyroid normal, no JVD Respiratory/Chest: chest non-tender, lungs clear, normal breath sounds, no respiratory distress, no accessory muscle use Cardiovascular: regular rate, rhythm, no edema, no gallop, no JVD, no murmur Abdomen: normal bowel sounds, non tender, soft Extremities: + pertinent finding (tenderness to palpation of left thigh ) 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: alert, normal mood/affect, oriented x 3 Laboratory Results Last 24 Hours Test 10/06/17 11:25 10/06/17 16:26 10/06/17 21:04 10/07/17 05:50 Bedside Glucose 84 mg/dl 78 mg/dl 123 mg/dl White Blood Count 8.92 K/uL Red Blood Count 3.29 M/uL Hemoglobin 8.9 g/dL Hematocrit 26.8 % Mean Corpuscular Volume 81.5 fL Mean Corpuscular Hemoglobin 27.1 pg Mean Corpuscular Hemoglobin Concent 33.2 g/dl Platelet Count 271 K/uL Mean Platelet Volume 10.2 fL Neutrophils (%) (Auto) 78.2 % Lymphocytes (%) (Auto) 11.3 % Monocytes (%) (Auto) 8.3 % Eosinophils (%) (Auto) 1.8 % Basophils (%) (Auto) 0.2 % Neutrophils # (Auto) 6.97 K/uL Lymphocytes # (Auto) 1.01 K/uL Monocytes # (Auto) 0.74 K/uL Eosinophils # (Auto) 0.16 K/uL Basophils # (Auto) 0.02 K/uL RDW Standard Deviation 54.7 fL RDW Coefficient of Variation 18.3 % Immature Granulocyte % (Auto) 0.2 % Immature Granulocyte # (Auto) 0.02 K/uL Poikilocytosis PRESENT Erythrocyte Sedimentation Rate 69 mm/hr Sodium Level 136 mmol/L Potassium Level 3.7 mmol/L Chloride Level 107 mmol/L Carbon Dioxide Level 20 mmol/L Anion Gap 9.0 mmol/L Blood Urea Nitrogen 21 mg/dl Creatinine 2.32 mg/dl Est Creatinine Clear Calc Drug Dose 24.9 ml/min Estimated GFR () 30.9 Estimated GFR (Non- 26.7 BUN/Creatinine Ratio 9.2 Random Glucose 100 mg/dl Calcium Level 7.5 mg/dl Total Bilirubin 1.3 mg/dl Direct Bilirubin 0.9 mg/dl Aspartate Amino Transf (AST/SGOT) 45 U/L Alanine Aminotransferase (ALT/SGPT) 74 U/L Alkaline Phosphatase 293 U/L C-Reactive Protein 13.00 mg/dl Total Protein 5.5 gm/dl Albumin 1.5 gm/dl Procalcitonin 1.19 ng/ml Test 10/07/17 07:19 10/07/17 10:30 Bedside Glucose 109 mg/dl Assessment and Plan Assessment and Plan: In summary, Brett 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 Was discharged on IV ceftriaxone tx for prostatitis on 10/01 and returned on 10/05 for fevers and chills. He was treated for presumed HCAP but has not improved clinically despite treatment with IV cefepime 500 mg, levofloxacin 750 mg, and vancomycin 1 g. Febrile illness, chills -HCAP is a less likely diagnosis - need to consider other etiologies -he is continuing to have fevers despite adequate bacterial coverage on broad spectrum antibiotics -his chest CT showed ground glass opacities, which are nonspecific and could be due to other etiologies such as ARDS or pulmonary edema -procalcitonin is 1.19 and it would be higher in the setting of a bacterial pneumonia -clinically he does not have a productive cough or shortness of breath and is maintaining an appropriate O2 sat (95% on RA) -other sources of infection are not clear -has a Vega but otherwise has no symptoms suggestive of a UTI -consult infectious diseases for their opinion on a source for a possible infection or other reason for recurrent fevers -awaiting labs for rheumatologic workup (ANCA, C3 and C4, etc.) - consider consult rheumatology for presence of a potential vasculitis or other disorder BPH -Continue tamsulosin 0.4 mg po BID and finasteride 5 mg po qD -consider biopsy in the future - hx of a nodule and elevated PSA HTN - Continue on metoprolol 50 mg po BID, hydralazine 50 mg po TID, amlodipine 10 mg po qD HLD -continue lovastatin 20 mg po qHS GERD -continue pantoprazole 40 mg po BID Hx of hepatitis A -total bili 1.6, direct bili 0.9, AST 37, ALT 91, alkaline phosphatase 234 -continue to monitor LFTs - total bili is increased from 1.4 on 10/05; all other values are trending down Continued [facility] stay due to: fever Discharge planning: other
[2017-10-07] MEDS ORDERED: CEFEPIME IV 500 MG in SYRINGE 0 ML IV SCH (12:00)
[2017-10-07] MEDS ORDERED: VANCOMYCIN TROUGH ONE (14:30)
--- NOTE | 2017-10-07 14:49 | Progress Note ---
Progress Note Date of Service Oct 07, 2017. Progress Note ID Consult Dictated #[id number] A/P: 1. Fever - ? etiology, infection vs non infectious -? due to rocephin hypersensitivity, will stop cefepime and monitor -Blood culture, urine culture negative -LFT's much improved, but would consider RUQ ultrasound if remains febrile -Doppler negative dvt lle. -Will follow, thank you
--- NOTE | 2017-10-07 16:43 | Progress Note ---
Subjective Date of Service: Oct 07, 2017. Subjective Pt evaluation today including: conversation w/ patient, physical exam, lab review, review of studies, conversation w/ quality consultant, review of inpatient medication list Pain: left leg PO Intake: adequate Voiding: vega catheter in place discussed with Dr. Mccall, appreciate consult reviewed labs, ESR up at 69, CRP elevated and procalcitonin slightly high at 1 Cr stable at 2.3, LFT stable although slightly high sending off work up for vasculitis, unclear why he is having fevers Problem List Medical Problems: (1) Acute renal failure Status: Acute (2) Hyperbilirubinemia Status: Acute (3) Leukocytosis Status: Acute (4) UTI (urinary tract infection) Status: Acute Review of Systems Constitutional: + fever, + chills, + sweats, + weakness, + fatigue All Other Systems: Reviewed and Negative Medications Current Inpatient Medications Medications (Trade) Dose Ordered Sig/Candelaria Route Start Time Stop Time Status Last Admin Dose Admin Heparin Sodium (Porcine) (Heparin Sq 5000 Unit/0.5ml) 5,000 unit Q8 SQ 10/05/17 22:00 11/04/17 21:59 10/07/17 14:13 5,000 UNIT Ondansetron HCl (Zofran Inj) 4 mg Q6H PRN IV 10/05/17 15:15 11/04/17 15:14 Polyethylene (Miralax Powder Packet) 17 gm DAILY PRN PO 10/05/17 15:15 11/04/17 15:14 Amlodipine Besylate (Norvasc Tab) 10 mg DAILY PO 10/06/17 09:00 11/05/17 08:59 10/07/17 08:04 10 MG Aspirin (Aspirin Chew) 81 mg DAILY PO 10/06/17 09:00 11/05/17 08:59 10/07/17 08:05 81 MG Cetirizine HCl (zyrTEC TAB) 10 mg DAILY PO 10/06/17 09:00 11/05/17 08:59 10/07/17 08:05 10 MG Finasteride (Proscar Tab) 5 mg DAILY PO 10/06/17 09:00 11/05/17 08:59 10/07/17 08:05 5 MG Hydralazine HCl (Apresoline Tab) 50 mg TID PO 10/05/17 21:00 11/04/17 20:59 10/07/17 14:13 50 MG Lovastatin (Mevacor Tab) 20 mg HS PO 10/05/17 21:00 11/04/17 20:59 10/06/17 21:02 20 MG Metoprolol Tartrate (Lopressor Tab) 50 mg BID PO 10/05/17 21:00 11/04/17 20:59 10/07/17 08:04 50 MG Pantoprazole Sodium (Protonix Tab) 40 mg BID PO 10/05/17 21:00 11/04/17 20:59 10/07/17 08:04 40 MG Sodium Bicarbonate (Sodium Bicarbonate Tab) 1,300 mg BID PO 10/05/17 21:00 11/04/17 20:59 10/07/17 08:04 1,300 MG Tamsulosin HCl (Flomax Cap) 0.4 mg BID PO 10/05/17 21:00 11/04/17 20:59 10/07/17 08:05 0.4 MG Miscellaneous (Iv Fluids Completed) 1 ea PRN PRN N/A 10/05/17 15:45 10/05/18 15:44 Levofloxacin 750 mg/Prmx 150 ml @ 100 mls/hr Q48H IV 10/07/17 16:00 10/12/17 15:59 Albuterol/ Ipratropium (Duoneb) 3 ml QIDR INH 10/05/17 20:00 11/04/17 19:59 10/07/17 16:20 3 ML Miscellaneous Information (Consult Glycemic Management Pharmacy) 1 ea UD PRN N/A 10/05/17 22:07 11/04/17 22:06 Glucose (Glucose 40% Gel) 15-30 GRAMS 15 GRAMS... UD PRN PO 10/05/17 23:30 11/04/17 23:29 Glucose (Glucose Chew Tab) 4-8 Tablets 4 Tabl... UD PRN PO 10/05/17 23:30 11/04/17 23:29 Dextrose (Dextrose 50% 50ML Syringe) 25-50ML OF 50% DW IV FOR... UD PRN IV 10/05/17 23:30 11/04/17 23:29 Glucagon (Glucagon Inj) 1 mg UD PRN SQ 10/05/17 23:30 11/04/17 23:29 Insulin Aspart (novoLOG ASPART) SLIDING SCALE ACHS SC 10/06/17 07:00 11/05/17 00:00 Sodium Chloride 1,000 ml @ 75 mls/hr [id number] IV 10/06/17 11:45 11/05/17 11:44 10/07/17 14:13 75 MLS/HR Acetaminophen 100 ml @ 400 mls/hr Q8H PRN IV 10/07/17 12:00 11/06/17 11:59 Objective Vital Signs Date Time Temp Pulse Resp B/P (MAP) Pulse Ox O2 Delivery O2 Flow Rate FiO2 10/07/17 16:21 106 18 97 Room Air 10/07/17 15:01 37.0 114 18 133/71 (91) 97 Room Air 10/07/17 12:00 Room Air 10/07/17 11:16 93 18 95 Room Air 10/07/17 11:12 37.7 70 19 119/66 (83) 96 Room Air 10/07/17 08:00 Room Air 10/07/17 07:27 37.6 107 18 125/68 (87) 95 Room Air 10/07/17 07:13 105 18 97 Room Air 10/07/17 06:16 38.5 10/07/17 04:00 94 Room Air 10/07/17 03:45 37.9 97 16 128/68 (88) 98 Room Air 10/07/17 01:33 38.0 10/07/17 00:00 94 Room Air 10/06/17 23:35 38.7 94 16 124/69 (87) 96 Room Air 10/06/17 20:00 37.9 121 18 105/63 (77) 96 Room Air 10/06/17 20:00 94 Room Air 10/06/17 19:04 124 18 97 Room Air 10/06/17 18:35 39.1 10/06/17 16:59 38.9 124 20 144/74 (97) 94 Room Air Physical Exam General Appearance: WD/WN, no apparent distress Eyes: normal inspection, EOMI, sclerae normal ENT: normal ENT inspection, hearing grossly normal, pharynx normal Neck: supple, no adenopathy, no JVD, trachea midline Respiratory/Chest: chest non-tender, lungs clear, normal breath sounds, no respiratory distress, no accessory muscle use Cardiovascular: no edema, no gallop, no JVD, no murmur, + tachycardia Abdomen: normal bowel sounds, non tender, soft, no organomegaly Extremities: normal inspection, no pedal edema, no calf tenderness, normal capillary refill, pelvis stable, + pertinent finding (mild pain in left thigh, decreased ROM, chronic problems) 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: head of 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 department II-XII nml as tested, no motor/sensory deficits, alert, normal mood/affect, oriented x 3 Skin: normal color, warm/dry, no rash Laboratory Results Last 24 Hours Test 10/06/17 16:26 10/06/17 21:04 10/07/17 05:50 10/07/17 07:19 Bedside Glucose 78 mg/dl 123 mg/dl 109 mg/dl White Blood Count 8.92 K/uL Red Blood Count 3.29 M/uL Hemoglobin 8.9 g/dL Hematocrit 26.8 % Mean Corpuscular Volume 81.5 fL Mean Corpuscular Hemoglobin 27.1 pg Mean Corpuscular Hemoglobin Concent 33.2 g/dl Platelet Count 271 K/uL Mean Platelet Volume 10.2 fL Neutrophils (%) (Auto) 78.2 % Lymphocytes (%) (Auto) 11.3 % Monocytes (%) (Auto) 8.3 % Eosinophils (%) (Auto) 1.8 % Basophils (%) (Auto) 0.2 % Neutrophils # (Auto) 6.97 K/uL Lymphocytes # (Auto) 1.01 K/uL Monocytes # (Auto) 0.74 K/uL Eosinophils # (Auto) 0.16 K/uL Basophils # (Auto) 0.02 K/uL RDW Standard Deviation 54.7 fL RDW Coefficient of Variation 18.3 % Immature Granulocyte % (Auto) 0.2 % Immature Granulocyte # (Auto) 0.02 K/uL Poikilocytosis PRESENT Erythrocyte Sedimentation Rate 69 mm/hr Sodium Level 136 mmol/L Potassium Level 3.7 mmol/L Chloride Level 107 mmol/L Carbon Dioxide Level 20 mmol/L Anion Gap 9.0 mmol/L Blood Urea Nitrogen 21 mg/dl Creatinine 2.32 mg/dl Est Creatinine Clear Calc Drug Dose 24.9 ml/min Estimated GFR () 30.9 Estimated GFR (Non- 26.7 BUN/Creatinine Ratio 9.2 Random Glucose 100 mg/dl Calcium Level 7.5 mg/dl Total Bilirubin 1.3 mg/dl Direct Bilirubin 0.9 mg/dl Aspartate Amino Transf (AST/SGOT) 45 U/L Alanine Aminotransferase (ALT/SGPT) 74 U/L Alkaline Phosphatase 293 U/L C-Reactive Protein 13.00 mg/dl Total Protein 5.5 gm/dl Albumin 1.5 gm/dl Procalcitonin 1.19 ng/ml Test 10/07/17 10:30 10/07/17 11:09 10/07/17 11:11 Bedside Glucose 104 mg/dl Assessment and Plan This is a 72 yo M with PMHx of hepatitis A, HTN, BPH, osteoarthritis, who was recently admitted to [facility] from 09/17-10/01 for urosepsis due to pansentivie Ecoli, acute renal failure and elevated LFTs. He was discharged on IV ceftriaxone for another 20 days for prostatitis. The patient reports that since being discharged he has felt increasingly generalized fatigue and weakness, and spiked a fever of 102 today. Patient notes he has had increasing shortness of breath with minimal activity. - HCAP: evidence of ground glass opacities on CT chest, dyspnea, fever, however , WBC normal for several days on previous admission he had ARDS, was much more hypoxic requiring BIPAP, now on room air recurrent fevers despite Cefepime and Levaquin ID will hold Cefepime for possible drug fever, was on Rocephin when he presented with fever flu was negative repeat labs tomorrow - Recent E coli UTI with prostatitis, recent bacteremia with severe sepsis check urine and blood cultures, no growth thus far continue Levaquin - Recent SONY, ATN: Cr is improving since last admission, down to 2.3, adequate UO UA was normal except + WBC - Transaminitis: LFT continue to trend down, supporting diagnosis of hepatitis due to sepsis from last admission serology studies were sent last admission, were normal - Left leg pain: negative for DVT, says pain is chronic from an injury - Recent GI bleed with gastric ulcer: Hb stable, no signs of bleeding continue Protonix - Persistent fevers: considering non-infectious cause ESR up at 69, CRP up sending out vasculitis work up change to Acetaminophen 1000mg IV q8, fevers better controlled HTN - Continue metoprolol tartrate 50 mg BID, hydralazine 50 mg TID, amlodipine 10 mg daily, asa 81 mg daily BPH - Indwelling vega needs changed this admission - it has been approximately 4 weeks since last change was completed. - Continue flomax Hx hepatitis A - LFTs are improved compared to previous admission, trend daily x 3 more days. Osteoarthritis - Continue tylenol for pain in left hip DVT ppx: Teds, scd, heparin subq CODE STATUS: DNR Disposition: From [facility], to assist with dc planning Continued [facility] stay due to: fever Discharge planning: other
[2017-10-07] MEDS: LEVOFLOXACIN / D5W 750 MG in PREMIXED IN D5W 150 ML IV SCH (17:52)
[2017-10-07] MEDS: ACETAMINOPHEN IV 100 ML IV PRN (18:23)
--- NOTE | 2017-10-07 19:14 | INFECT. DISEASE CONSULTATION ---
DATE OF CONSULTATION: 10/07/2017 HISTORY OF PRESENT ILLNESS: This is a 72-year-old gentleman who has a history of hepatitis A, hypertension, BPH, osteoarthritis and recent hospitalization at [facility] from September 17 through October 01 secondary to E. coli septicemia and suspected prostatitis as the source. He also was found to have acute kidney injury as well as elevated LFTs. He was discharged to complete remaining days of Rocephin to complete a 4-week course with plans to have prostate biopsy post-antibiotic treatment for elevated PSA, however, he had worsening fevers, chills at [facility] detention and was subsequently brought back to the hospital on the . He states his fever was as high as 102 degrees. On the , His T-max was 38.5 on the it was 39.5 and overnight it was 38.7. His current temperature is 37.7. He states he is symptomatic with his fevers and occasionally does experience shaking chills. His blood cultures from the are negative. Urine culture is also negative. His sed rate is elevated at 69 and CRP is elevated at 13. Creatinine was also elevated at 2.3. His flu swab was negative. His urinalysis had greater than 30 WBCs and large leukocyte esterase; however, there was no bacteria noted. Chest x-ray showed bilateral infiltrates and a CAT scan of the abdomen and pelvis showed changes consistent with ARDS at the lung bases. There was diverticulosis without evidence of diverticulitis. No evidence of cystitis was seen. He has not had a leukocytosis since admission to the hospital. He was placed on multiple broad spectrum antibiotics. He is currently receiving cefepime and Levaquin. He also did receive vancomycin on admission. On exam, he states he is fatigued. He does admit to fevers. He states he has some nonproductive cough and shortness of breath but this does improve with nebulizer treatments. He denies any chest pain. He denies any hemoptysis. He denies any nausea, vomiting, diarrhea or abdominal pain. He does have a Hamm catheter in place. His remaining review of systems is unremarkable. PAST MEDICAL HISTORY: Significant for anemia, recent E. coli sepsis and prostatitis, BPH, diabetes, hepatitis A, hypertension, chronic Hamm catheter. FAMILY HISTORY: Noncontributory. SOCIAL HISTORY: Significant for history of tobacco use. He currently is incarcerated at [facility]. ALLERGIES: He has no known drug allergies. CURRENT MEDICATIONS: Include Levaquin, cefepime, acetaminophen, Norvasc, aspirin, Zyrtec, Proscar, insulin, subQ heparin, hydralazine, lovastatin, Lopressor, Protonix, Flomax, DuoNeb, Zofran and MiraLax. PHYSICAL EXAMINATION: VITAL SIGNS: He currently has a temperature of 37.7. His T-max in the last 24 hours is 38.7, pulse 93, respiratory rate 18, blood pressure 119/66. Oxygen saturation is 95-97% on room air. GENERAL: He is awake, alert and oriented x3. He is in no acute distress. HEENT: Mucous membranes are dry. Extraocular muscles are intact. HEART: Regular. LUNGS: Decreased bilaterally without any wheezing. ABDOMEN: Minimally distended but soft and nontender. There is no edema. SKIN: Without rash. LABORATORY STUDIES: Flu swab is negative. CBC today reveals a white blood cell count of 8.9, hemoglobin 8.9, platelets 271. Sed rate is 69. Chemistry panel reveals a sodium of 136, potassium 3.7, chloride 107, bicarbonate 20, BUN 21, creatinine 2.3, glucose is 104. AST is 45, ALT is 74, this is much improved from previous. Bilirubin is 1.3, again much improved. CRP is 13. Procalcitonin is 1.1. UA again had large leukocyte esterase, greater than 30 WBCs, but no bacteria. MELANIE is pending. Blood cultures are no growth to date. Urine culture is negative. Chest x-ray shows airspace opacity in the right chest and left lung base. A CT of the abdomen and pelvis again shows stool within the rectum and diverticulosis without diverticulitis, ground-glass opacities with a differential of infection, pulmonary edema or ARDS. A lower extremity ultrasound was done on the and did not show any left lower extremity DVT. ASSESSMENT AND PLAN: Fever, it is unclear if this is due to infectious etiology. Rheumatologic workup is underway. Dopplers were negative. I am concerned that this could be Rocephin induced and certainly this could be a hypersensitivity pneumonitis. I would discontinue his cefepime and see if he improves, I would also consider pulmonary evaluation. He previously had significantly elevated LFTs and bilirubin which seem to be improved but ultrasound of the right upper quadrant to rule out any gallbladder involvement would also be of consideration, although CAT scan of the abdomen and pelvis did not find any liver abnormalities. Certainly he cannot continue on antibiotics pending additional culture results. We will follow along with you. Thank you for this consultation.
[2017-10-07] MEDS ORDERED: POTASSIUM CHLORIDE 20 MEQ TABCR PO STA (20:18)
[2017-10-07] MEDS ORDERED: ALBUMIN HUMAN 25% 12.5 GM/50 ML VIAL IV ONE ×2 (20:30→21:30)
[2017-10-07] MEDS ORDERED: SODIUM CHLORIDE 0.9% 500ML 500 ML IV SCH (20:30)
[2017-10-07] MEDS: LOVASTATIN 20 MG TAB PO SCH (20:55)
[2017-10-07] MEDS ORDERED: POTASSIUM CHLR 10 MEQ / WTR 10 MEQ in PREMIXED WATER 100 ML IV SCH (21:30)
[2017-10-08] VITALS (12 sets, daily range): BP systolic 109–153; BP diastolic 61–75; PULSE 68–122; TEMP 37–39.3; O2SAT 92–98
[2017-10-08] MEDS: SODIUM CHLORIDE 0.9% 1000ML 1,000 ML IV SCH ×2 (03:41→11:00)
[2017-10-08] MEDS: ACETAMINOPHEN IV 100 ML IV PRN ×2 (03:54→15:56)
[2017-10-08] MEDS: HEPARIN SOD 5000 UNIT/0.5 ML CARP SQ SCH ×3 (06:14→19:59)
[2017-10-08] MEDS: INSULIN ASPART 100 UNITS/ML 3 ML PEN SC SCH ×4 (07:00→19:51)
[2017-10-08] MEDS: ALBUT/IPRATROP 3MG/0.5MG NEB 3 ML VIAL INH SCH ×4 (07:18→19:40)
[2017-10-08 07:52] LABS: BASO % 0.5 %; BASO ABS # 0.04 K/uL (0-0.2); EOS % 1.2 %; HEMATOCRIT 21.8 % (42-52); HEMOGLOBIN 7.4 g/dL (14.0-18.0); IG# 0.03 K/uL (0.00-0.02); LYMPH ABS # 0.91 K/uL (1.2-3.4); MEAN CELL VOLUME 80.7 fL (80-100); MEAN CORPUSCULAR HEMOGLOBIN 27.4 pg (25-34); MEAN CORPUSCULAR HGB CONC 33.9 g/dl (32-36); MEAN PLATELET VOLUME 10.2 fL (7.4-10.4); MONO % 7.7 %; MONO ABS # 0.64 K/uL (0.11-0.59); NEUT % 79.2 %; NEUT ABS # 6.55 K/uL (1.4-6.5); PLATELET COUNT 225 K/uL (130-400); RED CELL DISTRIBUTION WIDTH CV 18.2 % (11.5-14.5); RED CELL DISTRIBUTION WIDTH SD 54.2 fL (36.4-46.3); WHITE BLOOD COUNT 8.27 K/uL (4.8-10.8)
[2017-10-08] MEDS: PANTOprazole SOD 40 MG TAB PO SCH ×2 (08:02→19:55)
[2017-10-08] MEDS: METOPROLOL TARTRATE 50 MG TAB PO SCH ×2 (08:03→19:54)
[2017-10-08] MEDS: ASPIRIN 81 MG CHEW PO SCH (08:03)
[2017-10-08] MEDS: TAMSULOSIN HCL 0.4 MG CAP PO SCH ×2 (08:04→19:54)
[2017-10-08] MEDS: FINASTERIDE 5 MG TAB PO SCH (08:04)
[2017-10-08] MEDS: SODIUM BICARBONATE 650 MG TAB PO SCH ×2 (08:04→19:54)
[2017-10-08] MEDS: AMLODIPINE BESYLATE 5 MG TAB PO SCH (08:04)
[2017-10-08] MEDS: CETIRIZINE HCL 10 MG TAB PO SCH (08:04)
[2017-10-08 08:23] LABS: CALCIUM 7.7 mg/dl (8.5-10.1); CREATININE 2.06 mg/dl (0.60-1.40); POTASSIUM 3.8 mmol/L (3.5-5.1)
[2017-10-08 08:25] LABS: TOTAL PROTEIN 5.3 gm/dl (6.4-8.2)
--- NOTE | 2017-10-08 10:57 | Progress Note ---
Subjective Date of Service: Oct 08, 2017. Subjective Pt evaluation today including: conversation w/ patient, physical exam, chart review, lab review, conversation w/ medical cost consultant, review of inpatient medication list seen in followup, fever curve better overnight, off of cephalosporins. all cultures remain negative. continues on RA, some dry cough, no sob, no cp, no n/v /d. states he feels bloated this am. no fever currently. all remaining ros reviewed and are negative. Problem List Medical Problems: (1) Acute renal failure Status: Acute (2) Hyperbilirubinemia Status: Acute (3) Leukocytosis Status: Acute (4) UTI (urinary tract infection) Status: Acute Objective Vital Signs Date Time Temp Pulse Resp B/P (MAP) Pulse Ox O2 Delivery O2 Flow Rate FiO2 10/08/17 07:18 99 18 96 Room Air 10/08/17 07:12 37.0 102 19 125/64 (84) 97 Room Air 10/08/17 06:00 37.2 10/08/17 04:40 38.0 94 19 150/68 (95) 92 Room Air 10/08/17 04:00 Room Air 10/08/17 00:03 37.0 99 18 119/61 (80) 97 Room Air 10/08/17 00:00 Room Air 10/07/17 20:07 38.2 123 18 100/61 (74) 97 Room Air 10/07/17 20:00 Room Air 10/07/17 18:48 110 18 98 Room Air 10/07/17 17:57 39.1 10/07/17 16:21 106 18 97 Room Air 10/07/17 16:00 Room Air 10/07/17 15:01 37.0 114 18 133/71 (91) 97 Room Air 10/07/17 12:00 Room Air 10/07/17 11:16 93 18 95 Room Air 10/07/17 11:12 37.7 70 19 119/66 (83) 96 Room Air Physical Exam General Appearance: WD/WN, no apparent distress Eyes: normal inspection, EOMI Neck: supple Respiratory/Chest: normal breath sounds, no respiratory distress Cardiovascular: regular rate, rhythm, no edema Abdomen: non tender, soft, + distended Extremities: non-tender 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: alert, oriented x 3 Skin: normal color Laboratory Results Item Value Date Time Blood Culture - Preliminary Resulted 10/05/17 1317 Blood NO GROWTH TO DATE. Blood Culture - Preliminary Resulted 10/05/17 1315 Blood NO GROWTH TO DATE. Urine Culture - Final Complete 10/05/17 1340 Urine,Catheterized NO GROWTH - LESS THAN 1,000 COLONIES/ML Last 24 Hours Test 10/07/17 11:09 10/07/17 16:23 10/07/17 20:25 10/08/17 06:25 Bedside Glucose 104 mg/dl 98 mg/dl 105 mg/dl 94 mg/dl Test 10/08/17 06:46 White Blood Count 8.27 K/uL Red Blood Count 2.70 M/uL Hemoglobin 7.4 g/dL Hematocrit 21.8 % Mean Corpuscular Volume 80.7 fL Mean Corpuscular Hemoglobin 27.4 pg Mean Corpuscular Hemoglobin Concent 33.9 g/dl Platelet Count 225 K/uL Mean Platelet Volume 10.2 fL Neutrophils (%) (Auto) 79.2 % Lymphocytes (%) (Auto) 11.0 % Monocytes (%) (Auto) 7.7 % Eosinophils (%) (Auto) 1.2 % Basophils (%) (Auto) 0.5 % Neutrophils # (Auto) 6.55 K/uL Lymphocytes # (Auto) 0.91 K/uL Monocytes # (Auto) 0.64 K/uL Eosinophils # (Auto) 0.10 K/uL Basophils # (Auto) 0.04 K/uL RDW Standard Deviation 54.2 fL RDW Coefficient of Variation 18.2 % Immature Granulocyte % (Auto) 0.4 % Immature Granulocyte # (Auto) 0.03 K/uL Poikilocytosis PRESENT Echinocytes 1+ Sodium Level 139 mmol/L Potassium Level 3.8 mmol/L Chloride Level 109 mmol/L Carbon Dioxide Level 19 mmol/L Anion Gap 10.0 mmol/L Blood Urea Nitrogen 17 mg/dl Creatinine 2.06 mg/dl Est Creatinine Clear Calc Drug Dose 31.5 ml/min Estimated GFR () 35.7 Estimated GFR (Non- 30.8 BUN/Creatinine Ratio 8.3 Random Glucose 82 mg/dl Calcium Level 7.7 mg/dl Total Bilirubin 1.2 mg/dl Direct Bilirubin 0.8 mg/dl Aspartate Amino Transf (AST/SGOT) 43 U/L Alanine Aminotransferase (ALT/SGPT) 55 U/L Alkaline Phosphatase 242 U/L Total Protein 5.3 gm/dl Albumin 2.0 gm/dl Assessment and Plan (1) Fever Assessment & Plan: ? b lactam induced, better overnight, continue to follow. cultures negative, discussed with primary service. Continued [facility] stay due to: fever Discharge planning: other Problem Qualifiers (1) Fever: Fever type: unspecified Qualified Codes: R50.9 - Fever, unspecified
--- NOTE | 2017-10-08 13:44 | Pharmacy Progress Note ---
Pharmacy Glycemic Sign Off Nt Date of Service Oct 08, 2017. Assessment & Plan ASSESSMENT: * Pharmacy was consulted by Dr Franklin on 10/05/17 for glycemic control and to write orders per [facility] inpatient glycemic control protocol. * Major changes made by pharmacy to antidiabetic regimen include: * one time dose of Lantus given 10/05/17 * Addition of Novolog parameters with only correction factor since 10/06/17 * Patient has been receiving/requiring 0 units of insulin per day for adequate glycemic control * BSGs ranging 98- 109 mg/dl * Regimen has only required minor adjustments over the past 48hrs to achieve this level of control * Do not anticipate further changes in patient status that would quickly deteriorate glycemic control (i.e. patient to be NPO for upcoming procedure, steroids tapering, starting tube feedings, etc). * Please see recommendations for outpatient antidiabetic regimen below. PLAN FOR INPATIENT GLYCEMIC CONTROL: No changes needed to current regimen. * Continue NovoLog per scale ACHS/Q6hrs while NPO * Goal range = 110 140 mg/dl * CF = 30 mg/dl/unit * CR = 1 unit for ever -- g CHO consumed * A1c added to discharge instructions to be communicated to PCP. * Pharmacy is signing off of glycemic consult and will no longer be making adjustments to inpatient regimen. Please feel free to re-consult if needed. Thank you. DISCHARGE RECOMMENDATIONS: * A1c 5.1 % on 10/06/17 * Continue current regimen
--- NOTE | 2017-10-08 16:18 | Progress Note ---
Subjective Date of Service: Oct 08, 2017. Subjective Pt evaluation today including: conversation w/ patient, physical exam, lab review, conversation w/ color consultant, review of inpatient medication list Pain: no pain PO Intake: adequate Voiding: vega catheter in place less elevations in temperatures, last fever was early this AM at 440 HR still going up discussed with Dr. Mccall, unclear etiology of fever, maybe drug related? reviewed labs, WBC normal, Cr is 2.0, Hb down to 7.4 Problem List Medical Problems: (1) Acute renal failure Status: Acute (2) Hyperbilirubinemia Status: Acute (3) Leukocytosis Status: Acute (4) UTI (urinary tract infection) Status: Acute Review of Systems Constitutional: + weakness All Other Systems: Reviewed and Negative Medications Current Inpatient Medications Medications (Trade) Dose Ordered Sig/Candelaria Route Start Time Stop Time Status Last Admin Dose Admin Heparin Sodium (Porcine) (Heparin Sq 5000 Unit/0.5ml) 5,000 unit Q8 SQ 10/05/17 22:00 11/04/17 21:59 10/08/17 13:53 5,000 UNIT Ondansetron HCl (Zofran Inj) 4 mg Q6H PRN IV 10/05/17 15:15 11/04/17 15:14 Polyethylene (Miralax Powder Packet) 17 gm DAILY PRN PO 10/05/17 15:15 11/04/17 15:14 Amlodipine Besylate (Norvasc Tab) 10 mg DAILY PO 10/06/17 09:00 11/05/17 08:59 10/08/17 08:04 10 MG Aspirin (Aspirin Chew) 81 mg DAILY PO 10/06/17 09:00 11/05/17 08:59 10/08/17 08:03 81 MG Cetirizine HCl (zyrTEC TAB) 10 mg DAILY PO 10/06/17 09:00 11/05/17 08:59 10/08/17 08:04 10 MG Finasteride (Proscar Tab) 5 mg DAILY PO 10/06/17 09:00 11/05/17 08:59 10/08/17 08:04 5 MG Hydralazine HCl (Apresoline Tab) 50 mg TID PO 10/05/17 21:00 11/04/17 20:59 10/08/17 13:52 50 MG Lovastatin (Mevacor Tab) 20 mg HS PO 10/05/17 21:00 11/04/17 20:59 10/07/17 20:55 20 MG Metoprolol Tartrate (Lopressor Tab) 50 mg BID PO 10/05/17 21:00 11/04/17 20:59 10/08/17 08:03 50 MG Pantoprazole Sodium (Protonix Tab) 40 mg BID PO 10/05/17 21:00 11/04/17 20:59 10/08/17 08:02 40 MG Sodium Bicarbonate (Sodium Bicarbonate Tab) 1,300 mg BID PO 10/05/17 21:00 11/04/17 20:59 10/08/17 08:04 1,300 MG Tamsulosin HCl (Flomax Cap) 0.4 mg BID PO 10/05/17 21:00 11/04/17 20:59 10/08/17 08:04 0.4 MG Miscellaneous (Iv Fluids Completed) 1 ea PRN PRN N/A 10/05/17 15:45 10/05/18 15:44 Levofloxacin 750 mg/Prmx 150 ml @ 100 mls/hr Q48H IV 10/07/17 16:00 10/12/17 15:59 10/07/17 17:52 100 MLS/HR Albuterol/ Ipratropium (Duoneb) 3 ml QIDR INH 10/05/17 20:00 11/04/17 19:59 10/08/17 15:17 3 ML Glucose (Glucose 40% Gel) 15-30 GRAMS 15 GRAMS... UD PRN PO 10/05/17 23:30 11/04/17 23:29 Glucose (Glucose Chew Tab) 4-8 Tablets 4 Tabl... UD PRN PO 10/05/17 23:30 11/04/17 23:29 Dextrose (Dextrose 50% 50ML Syringe) 25-50ML OF 50% DW IV FOR... UD PRN IV 10/05/17 23:30 11/04/17 23:29 Glucagon (Glucagon Inj) 1 mg UD PRN SQ 10/05/17 23:30 11/04/17 23:29 Insulin Aspart (novoLOG ASPART) SLIDING SCALE ACHS SC 10/06/17 07:00 11/05/17 00:00 Sodium Chloride 1,000 ml @ 75 mls/hr [id number] IV 10/06/17 11:45 11/05/17 11:44 10/08/17 11:00 75 MLS/HR Acetaminophen 100 ml @ 400 mls/hr Q8H PRN IV 10/07/17 12:00 11/06/17 11:59 10/08/17 15:56 400 MLS/HR Objective Vital Signs Date Time Temp Pulse Resp B/P (MAP) Pulse Ox O2 Delivery O2 Flow Rate FiO2 10/08/17 15:17 117 18 94 Room Air 10/08/17 12:00 Room Air 10/08/17 11:33 37.3 95 19 109/61 (77) 97 Room Air 10/08/17 11:17 85 18 93 Room Air 10/08/17 08:00 Room Air 10/08/17 07:18 99 18 96 Room Air 10/08/17 07:12 37.0 102 19 125/64 (84) 97 Room Air 10/08/17 06:00 37.2 10/08/17 04:40 38.0 94 19 150/68 (95) 92 Room Air 10/08/17 04:00 Room Air 10/08/17 00:03 37.0 99 18 119/61 (80) 97 Room Air 10/08/17 00:00 Room Air 10/07/17 20:07 38.2 123 18 100/61 (74) 97 Room Air 10/07/17 20:00 Room Air 10/07/17 18:48 110 18 98 Room Air 10/07/17 17:57 39.1 10/07/17 16:21 106 18 97 Room Air Physical Exam General Appearance: WD/WN, no apparent distress Eyes: normal inspection, EOMI, sclerae normal ENT: normal ENT inspection, hearing grossly normal, pharynx normal Neck: supple, no adenopathy, no JVD, trachea midline Respiratory/Chest: chest non-tender, lungs clear, normal breath sounds, no respiratory distress, no accessory muscle use Cardiovascular: no edema, no gallop, no JVD, no murmur, + tachycardia Abdomen: normal bowel sounds, non tender, soft, no organomegaly Extremities: normal range of motion, non-tender, normal inspection, no pedal edema, no calf tenderness, pelvis stable 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, no motor/sensory deficits, alert, normal mood/affect, oriented x 3 Skin: normal color, warm/dry, no rash Lymphatic: no adenopathy Laboratory Results Last 24 Hours Test 10/07/17 16:23 10/07/17 20:25 10/08/17 06:25 10/08/17 06:46 Bedside Glucose 98 mg/dl 105 mg/dl 94 mg/dl White Blood Count 8.27 K/uL Red Blood Count 2.70 M/uL Hemoglobin 7.4 g/dL Hematocrit 21.8 % Mean Corpuscular Volume 80.7 fL Mean Corpuscular Hemoglobin 27.4 pg Mean Corpuscular Hemoglobin Concent 33.9 g/dl Platelet Count 225 K/uL Mean Platelet Volume 10.2 fL Neutrophils (%) (Auto) 79.2 % Lymphocytes (%) (Auto) 11.0 % Monocytes (%) (Auto) 7.7 % Eosinophils (%) (Auto) 1.2 % Basophils (%) (Auto) 0.5 % Neutrophils # (Auto) 6.55 K/uL Lymphocytes # (Auto) 0.91 K/uL Monocytes # (Auto) 0.64 K/uL Eosinophils # (Auto) 0.10 K/uL Basophils # (Auto) 0.04 K/uL RDW Standard Deviation 54.2 fL RDW Coefficient of Variation 18.2 % Immature Granulocyte % (Auto) 0.4 % Immature Granulocyte # (Auto) 0.03 K/uL Poikilocytosis PRESENT Echinocytes 1+ Sodium Level 139 mmol/L Potassium Level 3.8 mmol/L Chloride Level 109 mmol/L Carbon Dioxide Level 19 mmol/L Anion Gap 10.0 mmol/L Blood Urea Nitrogen 17 mg/dl Creatinine 2.06 mg/dl Est Creatinine Clear Calc Drug Dose 31.5 ml/min Estimated GFR () 35.7 Estimated GFR (Non- 30.8 BUN/Creatinine Ratio 8.3 Random Glucose 82 mg/dl Calcium Level 7.7 mg/dl Total Bilirubin 1.2 mg/dl Direct Bilirubin 0.8 mg/dl Aspartate Amino Transf (AST/SGOT) 43 U/L Alanine Aminotransferase (ALT/SGPT) 55 U/L Alkaline Phosphatase 242 U/L Total Protein 5.3 gm/dl Albumin 2.0 gm/dl Test 10/08/17 15:59 Bedside Glucose 110 mg/dl Assessment and Plan This is a 72 yo M with PMHx of hepatitis A, HTN, BPH, osteoarthritis, who was recently admitted to [facility] from 09/17-10/01 for urosepsis due to pansentivie Ecoli, acute renal failure and elevated LFTs. He was discharged on IV ceftriaxone for another 20 days for prostatitis. The patient reports that since being discharged he has felt increasingly generalized fatigue and weakness, and spiked a fever of 102 today. Patient notes he has had increasing shortness of breath with minimal activity. - Possible HCAP: evidence of ground glass opacities on CT chest, dyspnea, fever , however, WBC normal for several days persistent fevers despite antibiotics? on previous admission he had ARDS, was much more hypoxic requiring BIPAP, now on room air per ID continue to hold Cefepime for possible drug fever, was on Rocephin when he presented with fever flu was negative repeat labs tomorrow continue Levaquin for single coverage - Recent E coli UTI with prostatitis, recent bacteremia with severe sepsis check urine and blood cultures, no growth thus far no signs of UTI, this is not source of fever continue Levaquin - Recent SONY, ATN: Cr is improving since last admission, down to 2.0, adequate UO SONY nearly resolved UA was normal except + WBC - Transaminitis: LFT continue to trend down, supporting diagnosis of hepatitis due to sepsis from last admission serology studies were sent last admission, were normal per ID, if fever persists then check ruq US - Left leg pain: negative for DVT, says pain is chronic from an injury less pain today - Recent GI bleed with gastric ulcer: Hb going down but no signs of bleeding continue Protonix transfuse tomorrow if drops further - Persistent fevers: considering non-infectious cause ESR up at 69, CRP up sending out vasculitis work up, will take days to come back change to Acetaminophen 1000mg IV q8, fevers better controlled, 38 this morning, no 39 HTN - Continue metoprolol tartrate 50 mg BID, hydralazine 50 mg TID, amlodipine 10 mg daily, asa 81 mg daily BPH - Indwelling vega needs changed this admission - it has been approximately 4 weeks since last change was completed. - Continue flomax Hx hepatitis A - LFTs are improved compared to previous admission, trend daily x 3 more days. Osteoarthritis - Continue tylenol for pain in left hip DVT ppx: Teds, scd, heparin subq CODE STATUS: DNR Disposition: From [facility], to assist with dc planning Continued [facility] stay due to: fever Discharge planning: other
[2017-10-08] MEDS: LOVASTATIN 20 MG TAB PO SCH (19:56)
[2017-10-09] VITALS (11 sets, daily range): BP systolic 113–154; BP diastolic 64–76; PULSE 85–117; TEMP 37.2–38.9; O2SAT 93–98
[2017-10-09] MEDS: HEPARIN SOD 5000 UNIT/0.5 ML CARP SQ SCH ×3 (05:35→20:57)
[2017-10-09] MEDS: INSULIN ASPART 100 UNITS/ML 3 ML PEN SC SCH ×4 (07:00→20:55)
[2017-10-09] MEDS: ALBUT/IPRATROP 3MG/0.5MG NEB 3 ML VIAL INH SCH (07:39)
[2017-10-09] MEDS: SODIUM CHLORIDE 0.9% 1000ML 1,000 ML IV SCH ×2 (08:25→20:52)
[2017-10-09] MEDS: PANTOprazole SOD 40 MG TAB PO SCH ×2 (08:29→20:53)
[2017-10-09] MEDS: METOPROLOL TARTRATE 50 MG TAB PO SCH ×2 (08:30→20:56)
[2017-10-09] MEDS: FINASTERIDE 5 MG TAB PO SCH (08:30)
[2017-10-09] MEDS: AMLODIPINE BESYLATE 5 MG TAB PO SCH (08:30)
[2017-10-09] MEDS: CETIRIZINE HCL 10 MG TAB PO SCH (08:30)
[2017-10-09] MEDS: ASPIRIN 81 MG CHEW PO SCH (08:30)
[2017-10-09] MEDS: SODIUM BICARBONATE 650 MG TAB PO SCH ×2 (08:30→20:54)
[2017-10-09] MEDS: TAMSULOSIN HCL 0.4 MG CAP PO SCH ×2 (08:30→20:53)
[2017-10-09 09:40] LABS: HEMATOCRIT 25.1 % (42-52); HEMOGLOBIN 8.5 g/dL (14.0-18.0); MEAN CELL VOLUME 81.5 fL (80-100); MEAN CORPUSCULAR HEMOGLOBIN 27.6 pg (25-34); MEAN CORPUSCULAR HGB CONC 33.9 g/dl (32-36); MEAN PLATELET VOLUME 9.5 fL (7.4-10.4); PLATELET COUNT 203 K/uL (130-400); RED CELL DISTRIBUTION WIDTH CV 18.1 % (11.5-14.5); RED CELL DISTRIBUTION WIDTH SD 54.4 fL (36.4-46.3); WHITE BLOOD COUNT 8.84 K/uL (4.8-10.8)
[2017-10-09 09:56] LABS: CALCIUM 7.8 mg/dl (8.5-10.1); CREATININE 2.18 mg/dl (0.60-1.40); POTASSIUM 4.1 mmol/L (3.5-5.1)
[2017-10-09 10:01] LABS: BASO % 0.3 %; BASO ABS # 0.03 K/uL (0-0.2); EOS ABS # 0.09 K/uL (0-0.5); IG# 0.02 K/uL (0.00-0.02); LYMPH % 11.5 %; LYMPH ABS # 1.02 K/uL (1.2-3.4); MONO ABS # 0.53 K/uL (0.11-0.59); NEUT ABS # 7.15 K/uL (1.4-6.5)
[2017-10-09] MEDS: MAGNESIUM SULFATE 1GM / D5W 1 GM in PREMIXED IN D5W 100 ML IV SCH ×2 (11:50→13:04)
[2017-10-09] MEDS ORDERED: ALBUT/IPRATROP 3MG/0.5MG NEB 3 ML VIAL INH PRN (12:00)
[2017-10-09] MEDS: ACETAMINOPHEN IV 100 ML IV PRN (14:13)
--- NOTE | 2017-10-09 14:22 | Progress Note ---
Subjective Date of Service: Oct 09, 2017. Subjective Pt evaluation today including: conversation w/ patient, physical exam, lab review, review of inpatient medication list Pain: left leg, mild PO Intake: adequate Voiding: vega catheter in place still with fevers, last Cefepime dose was noon on 10/07 so now 48 hours out no new symptoms reviewed labs, Hb up slightly at 8.5, Cr stable at 2.18 updated patient Problem List Medical Problems: (1) Acute renal failure Status: Acute (2) Hyperbilirubinemia Status: Acute (3) Leukocytosis Status: Acute (4) UTI (urinary tract infection) Status: Acute Review of Systems Constitutional: + fever, + chills All Other Systems: Reviewed and Negative Medications Current Inpatient Medications Medications (Trade) Dose Ordered Sig/Candelaria Route Start Time Stop Time Status Last Admin Dose Admin Heparin Sodium (Porcine) (Heparin Sq 5000 Unit/0.5ml) 5,000 unit Q8 SQ 10/05/17 22:00 11/04/17 21:59 10/09/17 05:35 5,000 UNIT Ondansetron HCl (Zofran Inj) 4 mg Q6H PRN IV 10/05/17 15:15 11/04/17 15:14 Polyethylene (Miralax Powder Packet) 17 gm DAILY PRN PO 10/05/17 15:15 11/04/17 15:14 Amlodipine Besylate (Norvasc Tab) 10 mg DAILY PO 10/06/17 09:00 11/05/17 08:59 10/09/17 08:30 10 MG Aspirin (Aspirin Chew) 81 mg DAILY PO 10/06/17 09:00 11/05/17 08:59 10/09/17 08:30 81 MG Cetirizine HCl (zyrTEC TAB) 10 mg DAILY PO 10/06/17 09:00 11/05/17 08:59 10/09/17 08:30 10 MG Finasteride (Proscar Tab) 5 mg DAILY PO 10/06/17 09:00 11/05/17 08:59 10/09/17 08:30 5 MG Hydralazine HCl (Apresoline Tab) 50 mg TID PO 10/05/17 21:00 11/04/17 20:59 10/09/17 08:31 50 MG Lovastatin (Mevacor Tab) 20 mg HS PO 10/05/17 21:00 11/04/17 20:59 10/08/17 19:56 20 MG Metoprolol Tartrate (Lopressor Tab) 50 mg BID PO 10/05/17 21:00 11/04/17 20:59 10/09/17 08:30 50 MG Pantoprazole Sodium (Protonix Tab) 40 mg BID PO 10/05/17 21:00 11/04/17 20:59 10/09/17 08:29 40 MG Sodium Bicarbonate (Sodium Bicarbonate Tab) 1,300 mg BID PO 10/05/17 21:00 11/04/17 20:59 10/09/17 08:30 1,300 MG Tamsulosin HCl (Flomax Cap) 0.4 mg BID PO 10/05/17 21:00 11/04/17 20:59 10/09/17 08:30 0.4 MG Miscellaneous (Iv Fluids Completed) 1 ea PRN PRN N/A 10/05/17 15:45 10/05/18 15:44 Levofloxacin 750 mg/Prmx 150 ml @ 100 mls/hr Q48H IV 10/07/17 16:00 10/12/17 15:59 10/07/17 17:52 100 MLS/HR Glucose (Glucose 40% Gel) 15-30 GRAMS 15 GRAMS... UD PRN PO 10/05/17 23:30 11/04/17 23:29 Glucose (Glucose Chew Tab) 4-8 Tablets 4 Tabl... UD PRN PO 10/05/17 23:30 11/04/17 23:29 Dextrose (Dextrose 50% 50ML Syringe) 25-50ML OF 50% DW IV FOR... UD PRN IV 10/05/17 23:30 11/04/17 23:29 Glucagon (Glucagon Inj) 1 mg UD PRN SQ 10/05/17 23:30 11/04/17 23:29 Insulin Aspart (novoLOG ASPART) SLIDING SCALE ACHS SC 10/06/17 07:00 11/05/17 00:00 Sodium Chloride 1,000 ml @ 75 mls/hr [id number] IV 10/06/17 11:45 11/05/17 11:44 10/09/17 08:25 75 MLS/HR Acetaminophen 100 ml @ 400 mls/hr Q8H PRN IV 10/07/17 12:00 11/06/17 11:59 10/08/17 15:56 400 MLS/HR Albuterol/ Ipratropium (Duoneb) 3 ml QIDR PRN INH 10/09/17 12:00 11/04/17 19:59 Objective Vital Signs Date Time Temp Pulse Resp B/P (MAP) Pulse Ox O2 Delivery O2 Flow Rate FiO2 10/09/17 12:20 37.7 103 20 132/64 (86) 97 10/09/17 12:00 Room Air 10/09/17 08:00 Room Air 10/09/17 07:45 37.6 114 16 144/72 (96) 96 10/09/17 07:39 107 18 96 Room Air 10/09/17 05:37 37.6 10/09/17 04:20 37.7 107 20 154/76 (102) 93 Room Air 10/09/17 04:00 Room Air 10/09/17 00:00 37.2 92 20 113/67 (82) 98 Room Air 10/09/17 00:00 96 Room Air 10/08/17 20:59 38.3 10/08/17 20:00 96 Room Air 10/08/17 19:47 38.1 68 20 153/68 (96) 96 Room Air 10/08/17 16:00 98 Room Air 10/08/17 16:00 39.3 122 18 150/75 (100) 98 Room Air 10/08/17 15:17 117 18 94 Room Air Physical Exam General Appearance: WD/WN, no apparent distress Eyes: normal inspection, EOMI, sclerae normal ENT: normal ENT inspection, hearing grossly normal, pharynx normal Neck: supple, no adenopathy, no JVD, trachea midline Respiratory/Chest: chest non-tender, lungs clear, normal breath sounds, no respiratory distress, no accessory muscle use Cardiovascular: no edema, no gallop, no JVD, no murmur, + tachycardia Abdomen: normal bowel sounds, non tender, soft, no organomegaly Extremities: normal range of motion, non-tender, normal inspection, no pedal edema, no calf tenderness, pelvis stable 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, no motor/sensory deficits, alert, normal mood/affect, oriented x 3 Skin: normal color, warm/dry, no rash Lymphatic: no adenopathy Laboratory Results Last 24 Hours Test 10/08/17 15:59 10/08/17 19:49 10/09/17 06:47 10/09/17 09:27 Bedside Glucose 110 mg/dl 127 mg/dl 116 mg/dl White Blood Count 8.84 K/uL Red Blood Count 3.08 M/uL Hemoglobin 8.5 g/dL Hematocrit 25.1 % Mean Corpuscular Volume 81.5 fL Mean Corpuscular Hemoglobin 27.6 pg Mean Corpuscular Hemoglobin Concent 33.9 g/dl Platelet Count 203 K/uL Mean Platelet Volume 9.5 fL Neutrophils (%) (Auto) 81.0 % Lymphocytes (%) (Auto) 11.5 % Monocytes (%) (Auto) 6.0 % Eosinophils (%) (Auto) 1.0 % Basophils (%) (Auto) 0.3 % Neutrophils # (Auto) 7.15 K/uL Lymphocytes # (Auto) 1.02 K/uL Monocytes # (Auto) 0.53 K/uL Eosinophils # (Auto) 0.09 K/uL Basophils # (Auto) 0.03 K/uL RDW Standard Deviation 54.4 fL RDW Coefficient of Variation 18.1 % Immature Granulocyte % (Auto) 0.2 % Immature Granulocyte # (Auto) 0.02 K/uL Red Blood Cell Morphology Unremarkable Sodium Level 138 mmol/L Potassium Level 4.1 mmol/L Chloride Level 108 mmol/L Carbon Dioxide Level 21 mmol/L Anion Gap 9.0 mmol/L Blood Urea Nitrogen 14 mg/dl Creatinine 2.18 mg/dl Est Creatinine Clear Calc Drug Dose 29.7 ml/min Estimated GFR () 33.3 Estimated GFR (Non- 28.8 BUN/Creatinine Ratio 6.4 Random Glucose 124 mg/dl Calcium Level 7.8 mg/dl Magnesium Level 1.3 mg/dl Test 10/09/17 11:49 Bedside Glucose 83 mg/dl Assessment and Plan This is a 72 yo M with PMHx of hepatitis A, HTN, BPH, osteoarthritis, who was recently admitted to [facility] from 09/17-10/01 for urosepsis due to pansentivie Ecoli, acute renal failure and elevated LFTs. He was discharged on IV ceftriaxone for another 20 days for prostatitis. The patient reports that since being discharged he has felt increasingly generalized fatigue and weakness, and spiked a fever of 102 today. Patient notes he has had increasing shortness of breath with minimal activity. - Possible HCAP: evidence of ground glass opacities on CT chest, dyspnea, fever , however, WBC normal for several days persistent fevers despite antibiotics? on previous admission he had ARDS, was much more hypoxic requiring BIPAP, now on room air per ID continue to hold Cefepime for possible drug fever, was on Rocephin when he presented with fever flu was negative continue Levaquin for single coverage but doubt pneumonia given persistent fever breathing comfortably today, no cough - Persistent fevers: considering non-infectious cause ESR up at 69, CRP up sent out vasculitis work up, will take days to come back change to Acetaminophen 1000mg IV q8, fevers better controlled but still have 39 yesterday afternoon could be beta lactams, last dose was noon 10/07, if still fever tomorrow then would doubt it was Rocephin/Cefepime will consult rheumatology tomorrow difficult to work up vasculitis given his Cr of 2.1, could not perform CT angiography - Recent E coli UTI with prostatitis, recent bacteremia with severe sepsis check urine and blood cultures, no growth thus far after a few days no signs of UTI, this does not appear to be source of fever continue Levaquin indefinitely per ID - Recent SONY, ATN: Cr has improved since last admission, down to 2.18, adequate UO UA was normal except + WBC - Transaminitis: LFT continue to trend down, supporting diagnosis of hepatitis due to sepsis from last admission serology studies were sent last admission, were normal per ID, if fever persists then check ruq US, will perform tomorrow if he still has fever repeat liver profile tomorrow - Left leg pain: negative for DVT, says pain is chronic from an injury pain controlled - Recent GI bleed with gastric ulcer: Hb going down but no signs of bleeding continue Protonix Hb went up today to 8.5, hold on transfusion HTN - Continue metoprolol tartrate 50 mg BID, hydralazine 50 mg TID, amlodipine 10 mg daily, asa 81 mg daily BPH - Indwelling vega needs changed this admission - it has been approximately 4 weeks since last change was completed. - Continue flomax Hx hepatitis A - LFTs are improved compared to previous admission, trend daily x 3 more days. Osteoarthritis - Continue tylenol for pain in left hip DVT ppx: Teds, scd, heparin subq CODE STATUS: DNR Disposition: From [facility], to assist with dc planning Continued [facility] stay due to: fever Discharge planning: other
[2017-10-09] MEDS: LEVOFLOXACIN / D5W 750 MG in PREMIXED IN D5W 150 ML IV SCH (15:47)
[2017-10-09] MEDS: HYDROmorphone INJ 1 MG/ML SYR IV PRN (20:52)
[2017-10-09] MEDS: LOVASTATIN 20 MG TAB PO SCH (20:53)
[2017-10-09] MEDS: VANCOMYCIN HCL 125 MG/2.5ML SOLN PO SCH ×2 (20:53→23:24)
[2017-10-09] MEDS: RASPBERRY SYRUP 5 ML UDP PO SCH ×2 (20:53→23:24)
[2017-10-10] VITALS (9 sets, daily range): BP systolic 129–157; BP diastolic 64–95; PULSE 69–123; TEMP 36.8–38.9; O2SAT 94–97
[2017-10-10] MEDS: HYDROmorphone INJ 1 MG/ML SYR IV PRN ×3 (02:54→19:39)
[2017-10-10] MEDS: ACETAMINOPHEN IV 100 ML IV PRN ×2 (02:54→19:39)
[2017-10-10] MEDS: VANCOMYCIN HCL 125 MG/2.5ML SOLN PO SCH (06:25)
[2017-10-10] MEDS: RASPBERRY SYRUP 5 ML UDP PO SCH ×4 (06:25→23:54)
[2017-10-10] MEDS: HEPARIN SOD 5000 UNIT/0.5 ML CARP SQ SCH ×3 (06:26→21:42)
[2017-10-10] MEDS ORDERED: RASPBERRY SYRUP 5 ML UDP PO STA (06:59)
[2017-10-10] MEDS ORDERED: VANCOMYCIN HCL 125 MG/2.5ML SOLN PO STA (06:59)
[2017-10-10 07:00] LABS: BASO % 0.3 %; BASO ABS # 0.02 K/uL (0-0.2); EOS % 1.2 %; EOS ABS # 0.09 K/uL (0-0.5); HEMATOCRIT 24.9 % (42-52); HEMOGLOBIN 8.3 g/dL (14.0-18.0); IG# 0.02 K/uL (0.00-0.02); LYMPH % 15.5 %; MEAN CELL VOLUME 80.8 fL (80-100); MEAN CORPUSCULAR HEMOGLOBIN 26.9 pg (25-34); MEAN CORPUSCULAR HGB CONC 33.3 g/dl (32-36); MEAN PLATELET VOLUME 9.8 fL (7.4-10.4); MONO % 8.9 %; MONO ABS # 0.69 K/uL (0.11-0.59); NEUT % 73.8 %; PLATELET COUNT 193 K/uL (130-400); RED CELL DISTRIBUTION WIDTH SD 53.3 fL (36.4-46.3); WHITE BLOOD COUNT 7.72 K/uL (4.8-10.8)
[2017-10-10] MEDS: INSULIN ASPART 100 UNITS/ML 3 ML PEN SC SCH ×4 (07:00→21:40)
[2017-10-10 07:37] LABS: ALBUMIN 1.7 gm/dl (3.4-5.0); CALCIUM 7.6 mg/dl (8.5-10.1); CREATININE 1.9 mg/dl (0.60-1.40); POTASSIUM 3.9 mmol/L (3.5-5.1)
[2017-10-10 07:40] LABS: TOTAL PROTEIN 5.4 gm/dl (6.4-8.2)
[2017-10-10] MEDS: PANTOprazole SOD 40 MG TAB PO SCH ×2 (08:19→21:46)
[2017-10-10] MEDS: CETIRIZINE HCL 10 MG TAB PO SCH (08:19)
[2017-10-10] MEDS: ASPIRIN 81 MG CHEW PO SCH (08:19)
[2017-10-10] MEDS: AMLODIPINE BESYLATE 5 MG TAB PO SCH (08:19)
[2017-10-10] MEDS: FINASTERIDE 5 MG TAB PO SCH (08:19)
[2017-10-10] MEDS: METOPROLOL TARTRATE 50 MG TAB PO SCH ×2 (08:20→21:45)
[2017-10-10] MEDS: SODIUM BICARBONATE 650 MG TAB PO SCH ×2 (08:20→21:43)
[2017-10-10] MEDS: TAMSULOSIN HCL 0.4 MG CAP PO SCH ×2 (08:20→21:44)
--- NOTE | 2017-10-10 08:45 | Progress Note ---
Subjective Date of Service: Oct 10, 2017. Subjective Pt evaluation today including: conversation w/ patient, physical exam, lab review, review of inpatient medication list Pain: no pain today PO Intake: adequate, ate entire breakfast Voiding: vega catheter in place last evening had large loose BM, + for C diff started on Vanco PO by night resident no abdominal pain, WBC normal, one additional loose stool overnight Cr is 1.9 today, all labs reviewed Problem List Medical Problems: (1) Acute renal failure Status: Acute (2) Hyperbilirubinemia Status: Acute (3) Leukocytosis Status: Acute (4) UTI (urinary tract infection) Status: Acute Review of Systems Constitutional: + weakness, + fatigue Abdomen: + diarrhea All Other Systems: Reviewed and Negative Medications Current Inpatient Medications Medications (Trade) Dose Ordered Sig/Candelaria Route Start Time Stop Time Status Last Admin Dose Admin Heparin Sodium (Porcine) (Heparin Sq 5000 Unit/0.5ml) 5,000 unit Q8 SQ 10/05/17 22:00 11/04/17 21:59 10/10/17 06:26 5,000 UNIT Ondansetron HCl (Zofran Inj) 4 mg Q6H PRN IV 10/05/17 15:15 11/04/17 15:14 Polyethylene (Miralax Powder Packet) 17 gm DAILY PRN PO 10/05/17 15:15 11/04/17 15:14 Amlodipine Besylate (Norvasc Tab) 10 mg DAILY PO 10/06/17 09:00 11/05/17 08:59 10/10/17 08:19 10 MG Aspirin (Aspirin Chew) 81 mg DAILY PO 10/06/17 09:00 11/05/17 08:59 10/10/17 08:19 81 MG Cetirizine HCl (zyrTEC TAB) 10 mg DAILY PO 10/06/17 09:00 11/05/17 08:59 10/10/17 08:19 10 MG Finasteride (Proscar Tab) 5 mg DAILY PO 10/06/17 09:00 11/05/17 08:59 10/10/17 08:19 5 MG Hydralazine HCl (Apresoline Tab) 50 mg TID PO 10/05/17 21:00 11/04/17 20:59 10/10/17 08:20 50 MG Lovastatin (Mevacor Tab) 20 mg HS PO 10/05/17 21:00 11/04/17 20:59 10/09/17 20:53 20 MG Metoprolol Tartrate (Lopressor Tab) 50 mg BID PO 10/05/17 21:00 11/04/17 20:59 10/10/17 08:20 50 MG Pantoprazole Sodium (Protonix Tab) 40 mg BID PO 10/05/17 21:00 11/04/17 20:59 10/10/17 08:19 40 MG Sodium Bicarbonate (Sodium Bicarbonate Tab) 1,300 mg BID PO 10/05/17 21:00 11/04/17 20:59 10/10/17 08:20 1,300 MG Tamsulosin HCl (Flomax Cap) 0.4 mg BID PO 10/05/17 21:00 11/04/17 20:59 10/10/17 08:20 0.4 MG Miscellaneous (Iv Fluids Completed) 1 ea PRN PRN N/A 10/05/17 15:45 10/05/18 15:44 Levofloxacin 750 mg/Prmx 150 ml @ 100 mls/hr Q48H IV 10/07/17 16:00 10/12/17 15:59 10/09/17 15:47 100 MLS/HR Glucose (Glucose 40% Gel) 15-30 GRAMS 15 GRAMS... UD PRN PO 10/05/17 23:30 11/04/17 23:29 Glucose (Glucose Chew Tab) 4-8 Tablets 4 Tabl... UD PRN PO 10/05/17 23:30 11/04/17 23:29 Dextrose (Dextrose 50% 50ML Syringe) 25-50ML OF 50% DW IV FOR... UD PRN IV 10/05/17 23:30 11/04/17 23:29 Glucagon (Glucagon Inj) 1 mg UD PRN SQ 10/05/17 23:30 11/04/17 23:29 Insulin Aspart (novoLOG ASPART) SLIDING SCALE ACHS SC 10/06/17 07:00 11/05/17 00:00 Sodium Chloride 1,000 ml @ 75 mls/hr [id number] IV 10/06/17 11:45 11/05/17 11:44 10/09/17 20:52 75 MLS/HR Acetaminophen 100 ml @ 400 mls/hr Q8H PRN IV 10/07/17 12:00 11/06/17 11:59 10/10/17 02:54 400 MLS/HR Albuterol/ Ipratropium (Duoneb) 3 ml QIDR PRN INH 10/09/17 12:00 11/04/17 19:59 Hydromorphone HCl (Dilaudid Inj) 1 mg Q4 PRN IV 10/09/17 18:00 10/23/17 17:59 10/10/17 08:21 1 MG Vancomycin HCl (Vancomycin Oral Soln) 250 mg Q6 PO 10/10/17 12:00 10/23/17 19:59 Raspberry (Raspberry Syrup 5ml Cup) 5 ml Q6 PO 10/10/17 12:00 10/24/17 11:59 Objective Vital Signs Date Time Temp Pulse Resp B/P (MAP) Pulse Ox O2 Delivery O2 Flow Rate FiO2 10/10/17 07:41 37.3 98 18 135/64 (87) 97 10/10/17 04:04 37.8 10/10/17 04:00 Room Air 10/10/17 02:43 38.0 106 19 135/95 (108) 95 Room Air 10/09/17 23:59 Room Air 10/09/17 23:50 37.6 85 18 126/72 (90) 93 10/09/17 22:48 37.3 10/09/17 20:00 Room Air 10/09/17 19:58 38.9 112 20 149/69 (95) 98 Room Air 10/09/17 16:00 96 Room Air 10/09/17 15:28 37.7 117 20 146/70 (95) 96 Room Air 10/09/17 12:20 37.7 103 20 132/64 (86) 97 10/09/17 12:00 Room Air Physical Exam General Appearance: WD/WN, no apparent distress Eyes: normal inspection, EOMI, sclerae normal ENT: normal ENT inspection, hearing grossly normal, pharynx normal Neck: supple, no adenopathy, no JVD, trachea midline Respiratory/Chest: chest non-tender, lungs clear, normal breath sounds, no respiratory distress, no accessory muscle use Cardiovascular: no edema, no gallop, no JVD, no murmur, + tachycardia Abdomen: normal bowel sounds, non tender, soft, no organomegaly Extremities: normal range of motion, non-tender, normal inspection, no pedal edema, no calf tenderness, pelvis stable 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0 % Basophils (%) (Auto) 0.3 % Neutrophils # (Auto) 7.15 K/uL Lymphocytes # (Auto) 1.02 K/uL Monocytes # (Auto) 0.53 K/uL Eosinophils # (Auto) 0.09 K/uL Basophils # (Auto) 0.03 K/uL RDW Standard Deviation 54.4 fL RDW Coefficient of Variation 18.1 % Immature Granulocyte % (Auto) 0.2 % Immature Granulocyte # (Auto) 0.02 K/uL Red Blood Cell Morphology Unremarkable Sodium Level 138 mmol/L Potassium Level 4.1 mmol/L Chloride Level 108 mmol/L Carbon Dioxide Level 21 mmol/L Anion Gap 9.0 mmol/L Blood Urea Nitrogen 14 mg/dl Creatinine 2.18 mg/dl Est Creatinine Clear Calc Drug Dose 29.7 ml/min Estimated GFR () 33.3 Estimated GFR (Non- 28.8 BUN/Creatinine Ratio 6.4 Random Glucose 124 mg/dl Calcium Level 7.8 mg/dl Magnesium Level 1.3 mg/dl Bedside Glucose 83 mg/dl 129 mg/dl 109 mg/dl Test 10/10/17 06:27 10/10/17 06:39 White Blood Count 7.72 K/uL Red Blood Count 3.08 M/uL Hemoglobin 8.3 g/dL Hematocrit 24.9 % Mean Corpuscular Volume 80.8 fL Mean Corpuscular Hemoglobin 26.9 pg Mean Corpuscular Hemoglobin Concent 33.3 g/dl Platelet Count 193 K/uL Mean Platelet Volume 9.8 fL Neutrophils (%) (Auto) 73.8 % Lymphocytes (%) (Auto) 15.5 % Monocytes (%) (Auto) 8.9 % Eosinophils (%) (Auto) 1.2 % Basophils (%) (Auto) 0.3 % Neutrophils # (Auto) 5.70 K/uL Lymphocytes # (Auto) 1.20 K/uL Monocytes # (Auto) 0.69 K/uL Eosinophils # (Auto) 0.09 K/uL Basophils # (Auto) 0.02 K/uL RDW Standard Deviation 53.3 fL RDW Coefficient of Variation 18.0 % Immature Granulocyte % (Auto) 0.3 % Immature Granulocyte # (Auto) 0.02 K/uL Red Blood Cell Morphology Unremarkable Sodium Level 136 mmol/L Potassium Level 3.9 mmol/L Chloride Level 108 mmol/L Carbon Dioxide Level 19 mmol/L Anion Gap 9.0 mmol/L Blood Urea Nitrogen 16 mg/dl Creatinine 1.90 mg/dl Est Creatinine Clear Calc Drug Dose 34.1 ml/min Estimated GFR () 39.4 Estimated GFR (Non- 34.0 BUN/Creatinine Ratio 8.7 Random Glucose 101 mg/dl Calcium Level 7.6 mg/dl Magnesium Level 1.6 mg/dl Total Bilirubin 1.1 mg/dl Direct Bilirubin 0.7 mg/dl Aspartate Amino Transf (AST/SGOT) 42 U/L Alanine Aminotransferase (ALT/SGPT) 59 U/L Alkaline Phosphatase 327 U/L Total Protein 5.4 gm/dl Albumin 1.7 gm/dl Bedside Glucose 107 mg/dl Assessment and Plan This is a 72 yo M with PMHx of hepatitis A, HTN, BPH, osteoarthritis, who was recently admitted to [facility] from 09/17-10/01 for urosepsis due to pansentivie Ecoli, acute renal failure and elevated LFTs. He was discharged on IV ceftriaxone for another 20 days for prostatitis. The patient reports that since being discharged he has felt increasingly generalized fatigue and weakness, and spiked a fever of 102 today. Patient notes he has had increasing shortness of breath with minimal activity. - C diff colitis: diarrhea last evening, + for C diff no abdominal pain, normal WBC for days, diarrhea is not severe likely source of fevers given no other cause treat with Vancomycin PO 250mg QID precautions - Possible HCAP: evidence of ground glass opacities on CT chest, dyspnea, fever , however, WBC normal for several days persistent fevers despite antibiotics? likely C diff continue Levaquin to cover E coli UTI from prior admission breathing comfortably today, no cough - Persistent fevers: likely from C diff, just diagnosed last night, look for fevers to resolve with Vanco PO sent out vasculitis work up, should be back early this week change to Acetaminophen 1000mg IV q8, less fevers today, look to resolve with Vanco PO difficult to work up vasculitis given his Cr of 1.9, could not perform CT angiography - Recent E coli UTI with prostatitis, recent bacteremia with severe sepsis check urine and blood cultures, no growth thus far after a few days no signs of UTI, this does not appear to be source of fever continue Levaquin indefinitely per ID - Recent SONY, ATN: Cr has improved since last admission, down to 1.9, adequate UO UA was normal except + WBC - Transaminitis: LFT continue to trend down, supporting diagnosis of hepatitis due to sepsis from last admission serology studies were sent last admission, were normal bili is 1.1, alk phos 300's but AST/ALT minimally elevated - Left leg pain: negative for DVT, says pain is chronic from an injury pain controlled - Recent GI bleed with gastric ulcer: Hb going down but no signs of bleeding continue Protonix Hb stable at 8.3 HTN - Continue metoprolol tartrate 50 mg BID, hydralazine 50 mg TID, amlodipine 10 mg daily, asa 81 mg daily BPH - Indwelling vega needs changed this admission - it has been approximately 4 weeks since last change was completed. - Continue flomax Hx hepatitis A - LFTs are improved compared to previous admission, trend daily x 3 more days. Osteoarthritis - Continue tylenol for pain in left hip DVT ppx: Teds, scd, heparin subq CODE STATUS: DNR Disposition: From [facility], will return once stable Discharge planning: other
[2017-10-10] MEDS: SODIUM CHLORIDE 0.9% 1000ML 1,000 ML IV SCH ×2 (12:26→21:46)
[2017-10-10] MEDS: VANCOMYCIN HCL 250 MG/5 ML SOLN PO SCH ×3 (13:08→23:54)
[2017-10-10] MEDS: LOVASTATIN 20 MG TAB PO SCH (21:44)
[2017-10-10 23:59] LABS: ANTI-dsDNA RECOMBINANT 255X <1 IU/ML; COMPLEMENT C3 TC 44859W 122 MG/DL (90-180); COMPLEMENT C4 TC 44982E 31 MG/DL (16-47); COMPLEMENT TOTAL(CH50)**45328P >60 U/mL (31-60)
[2017-10-11] VITALS (11 sets, daily range): BP systolic 115–151; BP diastolic 53–65; PULSE 80–128; TEMP 36.9–38.5; O2SAT 95–98
[2017-10-11] MEDS: ACETAMINOPHEN IV 100 ML IV PRN ×3 (03:58→22:08)
[2017-10-11] MEDS: RASPBERRY SYRUP 5 ML UDP PO SCH ×4 (05:49→23:45)
[2017-10-11] MEDS: VANCOMYCIN HCL 250 MG/5 ML SOLN PO SCH ×4 (05:49→23:45)
[2017-10-11] MEDS: HEPARIN SOD 5000 UNIT/0.5 ML CARP SQ SCH ×3 (05:50→21:20)
[2017-10-11] MEDS: INSULIN ASPART 100 UNITS/ML 3 ML PEN SC SCH ×4 (07:00→21:00)
[2017-10-11] MEDS: TAMSULOSIN HCL 0.4 MG CAP PO SCH ×2 (09:15→21:16)
[2017-10-11] MEDS: METOPROLOL TARTRATE 50 MG TAB PO SCH ×2 (09:15→21:15)
[2017-10-11] MEDS: SODIUM BICARBONATE 650 MG TAB PO SCH ×2 (09:16→21:15)
[2017-10-11] MEDS: FINASTERIDE 5 MG TAB PO SCH (09:16)
[2017-10-11] MEDS: CETIRIZINE HCL 10 MG TAB PO SCH (09:16)
[2017-10-11] MEDS: AMLODIPINE BESYLATE 5 MG TAB PO SCH (09:16)
[2017-10-11] MEDS: PANTOprazole SOD 40 MG TAB PO SCH ×2 (09:16→21:16)
[2017-10-11] MEDS: ASPIRIN 81 MG CHEW PO SCH (09:16)
--- NOTE | 2017-10-11 11:12 | Progress Note ---
Subjective Date of Service: Oct 11, 2017. Subjective Patient reports feeling well. Only is complaining of left hip pain. Patient continue to have intermittent fever. Problem List Medical Problems: (1) Acute renal failure Status: Acute (2) Hyperbilirubinemia Status: Acute (3) Leukocytosis Status: Acute (4) UTI (urinary tract infection) Status: Acute Review of Systems Constitutional: + fever, No chills Eyes: No worsening of vision, No eye pain ENT: No hearing loss Respiratory: No cough Cardiac: No chest pain Abdomen: No pain Musculoskeletal: + joint pain Neurologic: No memory loss, No paralysis Psychiatric: No depression symptoms Heme: No abnormal bleeding/bruising Endo: No fatigue Skin: No rash All Other Systems: Reviewed and Negative Medications Current Inpatient Medications Medications (Trade) Dose Ordered Sig/Candelaria Route Start Time Stop Time Status Last Admin Dose Admin Heparin Sodium (Porcine) (Heparin Sq 5000 Unit/0.5ml) 5,000 unit Q8 SQ 10/05/17 22:00 11/04/17 21:59 10/12/17 05:49 5,000 UNIT Ondansetron HCl (Zofran Inj) 4 mg Q6H PRN IV 10/05/17 15:15 11/04/17 15:14 Polyethylene (Miralax Powder Packet) 17 gm DAILY PRN PO 10/05/17 15:15 11/04/17 15:14 Amlodipine Besylate (Norvasc Tab) 10 mg DAILY PO 10/06/17 09:00 11/05/17 08:59 10/12/17 07:59 10 MG Aspirin (Aspirin Chew) 81 mg DAILY PO 10/06/17 09:00 11/05/17 08:59 10/12/17 07:57 81 MG Cetirizine HCl (zyrTEC TAB) 10 mg DAILY PO 10/06/17 09:00 11/05/17 08:59 10/12/17 07:59 10 MG Finasteride (Proscar Tab) 5 mg DAILY PO 10/06/17 09:00 11/05/17 08:59 10/12/17 08:00 5 MG Hydralazine HCl (Apresoline Tab) 50 mg TID PO 10/05/17 21:00 11/04/17 20:59 10/12/17 08:00 50 MG Lovastatin (Mevacor Tab) 20 mg HS PO 10/05/17 21:00 11/04/17 20:59 10/11/17 21:15 20 MG Metoprolol Tartrate (Lopressor Tab) 50 mg BID PO 10/05/17 21:00 11/04/17 20:59 10/12/17 07:58 50 MG Pantoprazole Sodium (Protonix Tab) 40 mg BID PO 10/05/17 21:00 11/04/17 20:59 10/12/17 07:58 40 MG Sodium Bicarbonate (Sodium Bicarbonate Tab) 1,300 mg BID PO 10/05/17 21:00 11/04/17 20:59 10/12/17 07:58 1,300 MG Tamsulosin HCl (Flomax Cap) 0.4 mg BID PO 10/05/17 21:00 11/04/17 20:59 10/12/17 08:00 0.4 MG Miscellaneous (Iv Fluids Completed) 1 ea PRN PRN N/A 10/05/17 15:45 10/05/18 15:44 Levofloxacin 750 mg/Prmx 150 ml @ 100 mls/hr Q48H IV 10/07/17 16:00 10/12/17 15:59 10/11/17 16:32 100 MLS/HR Glucose (Glucose 40% Gel) 15-30 GRAMS 15 GRAMS... UD PRN PO 10/05/17 23:30 11/04/17 23:29 Glucose (Glucose Chew Tab) 4-8 Tablets 4 Tabl... UD PRN PO 10/05/17 23:30 11/04/17 23:29 Dextrose (Dextrose 50% 50ML Syringe) 25-50ML OF 50% DW IV FOR... UD PRN IV 10/05/17 23:30 11/04/17 23:29 Glucagon (Glucagon Inj) 1 mg UD PRN SQ 10/05/17 23:30 11/04/17 23:29 Insulin Aspart (novoLOG ASPART) SLIDING SCALE ACHS SC 10/06/17 07:00 11/05/17 00:00 Sodium Chloride 1,000 ml @ 75 mls/hr [id number] IV 10/06/17 11:45 11/05/17 11:44 10/11/17 11:27 75 MLS/HR Acetaminophen 100 ml @ 400 mls/hr Q8H PRN IV 10/07/17 12:00 11/06/17 11:59 10/11/17 22:08 400 MLS/HR Albuterol/ Ipratropium (Duoneb) 3 ml QIDR PRN INH 10/09/17 12:00 11/04/17 19:59 Hydromorphone HCl (Dilaudid Inj) 1 mg Q4 PRN IV 10/09/17 18:00 10/23/17 17:59 10/12/17 08:01 1 MG Vancomycin HCl (Vancomycin Oral Soln) 250 mg Q6 PO 10/10/17 12:00 10/23/17 19:59 10/12/17 05:53 250 MG Raspberry (Raspberry Syrup 5ml Cup) 5 ml Q6 PO 10/10/17 12:00 10/24/17 11:59 10/12/17 05:53 5 ML Objective Vital Signs Date Time Temp Pulse Resp B/P (MAP) Pulse Ox O2 Delivery O2 Flow Rate FiO2 10/11/17 08:00 Room Air 10/11/17 07:45 37.9 128 16 147/53 (84) 98 Room Air 10/11/17 05:59 38.5 10/11/17 04:00 Room Air 10/11/17 03:50 38.4 108 22 151/63 (92) 97 Room Air 10/11/17 00:13 37.7 88 18 115/61 (79) 95 Room Air 10/11/17 00:00 Room Air 10/10/17 21:47 37.8 10/10/17 20:00 Room Air 10/10/17 19:52 36.8 69 16 130/74 (92) 94 Room Air 10/10/17 19:30 38.9 123 16 157/71 (99) 95 Room Air 10/10/17 16:00 97 Room Air 10/10/17 15:55 38.2 112 16 138/69 (92) 97 Room Air 10/10/17 12:00 Room Air 10/10/17 11:35 37.5 99 18 129/69 (89) 97 Physical Exam Comments: General Appearance: WD/WN, no apparent distress Eyes: normal inspection, EOMI, sclerae normal ENT: normal ENT inspection, hearing grossly normal, pharynx normal Neck: supple, no adenopathy, no JVD, trachea midline Respiratory/Chest: chest non-tender, lungs clear, normal breath sounds, no respiratory distress, no accessory muscle use Cardiovascular: no edema, no gallop, no JVD, no murmur, + tachycardia Abdomen: normal bowel sounds, non tender, soft, no organomegaly Extremities: normal range of motion, non-tender, normal inspection, no pedal edema, no calf tenderness, pelvis stable 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 He was discharged on IV ceftriaxone for another 20 days for prostatitis. The patient reports that since being discharged he has felt increasingly generalized fatigue and weakness, and spiked a fever of 102 today. Patient notes he has had increasing shortness of breath with minimal activity. - C diff colitis: diarrhea last evening, + for C diff Patient continues to be febrile no abdominal pain, normal WBC for days, diarrhea is not severe likely source of fevers given no other cause treat with Vancomycin PO 250mg QID precautions unsure if this is cause of his fever. will continue to treat. - Possible HCAP: evidence of ground glass opacities on CT chest, dyspnea, fever , however, WBC normal for several days persistent fevers despite antibiotics? likely C diff continue Levaquin to cover E coli UTI from prior admission breathing comfortably today, no cough - Persistent fevers: likely from C diff, just diagnosed last night, look for fevers to resolve with Vanco PO sent out vasculitis work up, should be back early this week change to Acetaminophen 1000mg IV q8, less fevers today, look to resolve with Vanco PO difficult to work up vasculitis given his Cr of 1.9, could not perform CT angiography - Recent E coli UTI with prostatitis, recent bacteremia with severe sepsis check urine and blood cultures, no growth thus far after a few days no signs of UTI, this does not appear to be source of fever continue Levaquin indefinitely per ID -Tachycardia Response from infection? will monitor. - Recent SONY, ATN: Cr has improved since last admission, down to 1.9, adequate UO UA was normal except + WBC - Transaminitis: LFT continue to trend down, supporting diagnosis of hepatitis due to sepsis from last admission serology studies were sent last admission, were normal bili is 1.1, alk phos 300's but AST/ALT minimally elevated - Left leg pain: negative for DVT, says pain is chronic from an injury pain controlled -Left hip pain: imaging showed significant OA from previous admission. - Recent GI bleed with gastric ulcer: Hb going down but no signs of bleeding continue Protonix Hb stable HTN - Continue metoprolol tartrate 50 mg BID, hydralazine 50 mg TID, amlodipine 10 mg daily, asa 81 mg daily BPH - Indwelling vega needs changed this admission - it has been approximately 4 weeks since last change was completed. - Continue flomax Hx hepatitis A - LFTs are improved compared to previous admission, trend daily x 3 more days. Osteoarthritis - Continue tylenol for pain in left hip DVT ppx: Teds, scd, heparin subq CODE STATUS: DNR Disposition: From [facility], will return once stable Discharge planning: other
[2017-10-11] MEDS: SODIUM CHLORIDE 0.9% 1000ML 1,000 ML IV SCH (11:27)
[2017-10-11] MEDS: LEVOFLOXACIN / D5W 750 MG in PREMIXED IN D5W 150 ML IV SCH (16:32)
[2017-10-11] MEDS: LOVASTATIN 20 MG TAB PO SCH (21:15)
[2017-10-12] VITALS (7 sets, daily range): BP systolic 117–135; BP diastolic 59–68; PULSE 89–110; TEMP 37.1–38.2; O2SAT 92–97
[2017-10-12] MEDS: SODIUM CHLORIDE 0.9% 1000ML 1,000 ML IV SCH ×2 (01:05→13:32)
[2017-10-12] MEDS: HEPARIN SOD 5000 UNIT/0.5 ML CARP SQ SCH ×3 (05:49→23:25)
[2017-10-12] MEDS: VANCOMYCIN HCL 250 MG/5 ML SOLN PO SCH ×4 (05:53→23:22)
[2017-10-12] MEDS: RASPBERRY SYRUP 5 ML UDP PO SCH ×4 (05:53→23:22)
[2017-10-12 06:00] LABS: HEMATOCRIT 26.1 % (42-52); HEMOGLOBIN 8.5 g/dL (14.0-18.0); MEAN CELL VOLUME 81.1 fL (80-100); MEAN CORPUSCULAR HEMOGLOBIN 26.4 pg (25-34); MEAN CORPUSCULAR HGB CONC 32.6 g/dl (32-36); MEAN PLATELET VOLUME 9.3 fL (7.4-10.4); PLATELET COUNT 190 K/uL (130-400); RED CELL DISTRIBUTION WIDTH CV 17.4 % (11.5-14.5); RED CELL DISTRIBUTION WIDTH SD 52.5 fL (36.4-46.3)
[2017-10-12 06:41] LABS: ALBUMIN 1.7 gm/dl (3.4-5.0); CALCIUM 7.5 mg/dl (8.5-10.1); CREATININE 1.79 mg/dl (0.60-1.40); POTASSIUM 3.6 mmol/L (3.5-5.1)
[2017-10-12 06:43] LABS: TOTAL PROTEIN 5.5 gm/dl (6.4-8.2)
[2017-10-12] MEDS: INSULIN ASPART 100 UNITS/ML 3 ML PEN SC SCH ×4 (07:56→21:00)
[2017-10-12] MEDS: ASPIRIN 81 MG CHEW PO SCH (07:57)
[2017-10-12] MEDS: SODIUM BICARBONATE 650 MG TAB PO SCH ×2 (07:58→20:09)
[2017-10-12] MEDS: PANTOprazole SOD 40 MG TAB PO SCH ×2 (07:58→20:11)
[2017-10-12] MEDS: METOPROLOL TARTRATE 50 MG TAB PO SCH ×2 (07:58→20:09)
[2017-10-12] MEDS: CETIRIZINE HCL 10 MG TAB PO SCH (07:59)
[2017-10-12] MEDS: AMLODIPINE BESYLATE 5 MG TAB PO SCH (07:59)
[2017-10-12] MEDS: FINASTERIDE 5 MG TAB PO SCH (08:00)
[2017-10-12] MEDS: TAMSULOSIN HCL 0.4 MG CAP PO SCH ×2 (08:00→20:10)
[2017-10-12] MEDS: HYDROmorphone INJ 1 MG/ML SYR IV PRN ×3 (08:01→23:39)
[2017-10-12] MEDS: ACETAMINOPHEN IV 100 ML IV PRN ×2 (13:39→20:05)
[2017-10-12] MEDS ORDERED: NURSING VERBAL MED ORDER ONE (18:00)
[2017-10-12] MEDS: LOVASTATIN 20 MG TAB PO SCH (20:10)
--- NOTE | 2017-10-12 22:53 | Progress Note ---
Subjective Date of Service: Oct 12, 2017. Subjective Pt evaluation today including: conversation w/ patient, physical exam Patient reports feeling better. He had an episode of fever last evening but it has become less frequent. Patient has no other complaints except for his left hip. Problem List Medical Problems: (1) Acute renal failure Status: Acute (2) Hyperbilirubinemia Status: Acute (3) Leukocytosis Status: Acute (4) UTI (urinary tract infection) Status: Acute Review of Systems Constitutional: + fever, No chills Eyes: No worsening of vision ENT: No hearing loss Respiratory: No cough Cardiac: No chest pain Abdomen: No pain Musculoskeletal: + joint pain Male : No dysuria Neurologic: No memory loss Psychiatric: No depression symptoms Skin: No rash All Other Systems: Reviewed and Negative Medications Current Inpatient Medications Medications (Trade) Dose Ordered Sig/Candelaria Route Start Time Stop Time Status Last Admin Dose Admin Heparin Sodium (Porcine) (Heparin Sq 5000 Unit/0.5ml) 5,000 unit Q8 SQ 10/05/17 22:00 11/04/17 21:59 10/12/17 13:35 5,000 UNIT Ondansetron HCl (Zofran Inj) 4 mg Q6H PRN IV 10/05/17 15:15 11/04/17 15:14 Polyethylene (Miralax Powder Packet) 17 gm DAILY PRN PO 10/05/17 15:15 11/04/17 15:14 Amlodipine Besylate (Norvasc Tab) 10 mg DAILY PO 10/06/17 09:00 11/05/17 08:59 10/12/17 07:59 10 MG Aspirin (Aspirin Chew) 81 mg DAILY PO 10/06/17 09:00 11/05/17 08:59 10/12/17 07:57 81 MG Cetirizine HCl (zyrTEC TAB) 10 mg DAILY PO 10/06/17 09:00 11/05/17 08:59 10/12/17 07:59 10 MG Finasteride (Proscar Tab) 5 mg DAILY PO 10/06/17 09:00 11/05/17 08:59 10/12/17 08:00 5 MG Hydralazine HCl (Apresoline Tab) 50 mg TID PO 10/05/17 21:00 11/04/17 20:59 10/12/17 20:09 50 MG Lovastatin (Mevacor Tab) 20 mg HS PO 10/05/17 21:00 11/04/17 20:59 10/12/17 20:10 20 MG Metoprolol Tartrate (Lopressor Tab) 50 mg BID PO 10/05/17 21:00 11/04/17 20:59 10/12/17 20:09 50 MG Pantoprazole Sodium (Protonix Tab) 40 mg BID PO 10/05/17 21:00 11/04/17 20:59 10/12/17 20:11 40 MG Sodium Bicarbonate (Sodium Bicarbonate Tab) 1,300 mg BID PO 10/05/17 21:00 11/04/17 20:59 10/12/17 20:09 1,300 MG Tamsulosin HCl (Flomax Cap) 0.4 mg BID PO 10/05/17 21:00 11/04/17 20:59 10/12/17 20:10 0.4 MG Miscellaneous (Iv Fluids Completed) 1 ea PRN PRN N/A 10/05/17 15:45 10/05/18 15:44 Glucose (Glucose 40% Gel) 15-30 GRAMS 15 GRAMS... UD PRN PO 10/05/17 23:30 11/04/17 23:29 Glucose (Glucose Chew Tab) 4-8 Tablets 4 Tabl... UD PRN PO 10/05/17 23:30 11/04/17 23:29 Dextrose (Dextrose 50% 50ML Syringe) 25-50ML OF 50% DW IV FOR... UD PRN IV 10/05/17 23:30 11/04/17 23:29 Glucagon (Glucagon Inj) 1 mg UD PRN SQ 10/05/17 23:30 11/04/17 23:29 Insulin Aspart (novoLOG ASPART) SLIDING SCALE ACHS SC 10/06/17 07:00 11/05/17 00:00 Sodium Chloride 1,000 ml @ 75 mls/hr [id number] IV 10/06/17 11:45 11/05/17 11:44 10/12/17 13:32 75 MLS/HR Acetaminophen 100 ml @ 400 mls/hr Q8H PRN IV 10/07/17 12:00 11/06/17 11:59 10/12/17 20:05 400 MLS/HR Albuterol/ Ipratropium (Duoneb) 3 ml QIDR PRN INH 10/09/17 12:00 11/04/17 19:59 Hydromorphone HCl (Dilaudid Inj) 1 mg Q4 PRN IV 10/09/17 18:00 10/23/17 17:59 10/12/17 13:39 1 MG Vancomycin HCl (Vancomycin Oral Soln) 250 mg Q6 PO 10/10/17 12:00 10/23/17 19:59 10/12/17 18:32 250 MG Raspberry (Raspberry Syrup 5ml Cup) 5 ml Q6 PO 10/10/17 12:00 10/24/17 11:59 10/12/17 18:32 5 ML Objective Vital Signs Date Time Temp Pulse Resp B/P (MAP) Pulse Ox O2 Delivery O2 Flow Rate FiO2 10/12/17 20:00 Room Air 10/12/17 19:40 37.9 110 22 130/62 (84) 94 Room Air 10/12/17 16:22 37.2 98 18 121/59 (79) 93 Room Air 10/12/17 16:00 Room Air 10/12/17 13:31 38.2 101 117/62 (80) 10/12/17 12:00 Room Air 10/12/17 11:48 37.6 95 16 128/65 (86) 96 Room Air 10/12/17 08:07 37.4 102 18 135/68 (90) 97 10/12/17 08:00 Room Air 10/12/17 04:00 Room Air 10/12/17 03:36 37.1 89 17 129/65 (86) 97 Room Air 10/12/17 00:00 Room Air 10/11/17 23:25 36.9 80 18 123/56 (78) 96 Room Air Physical Exam Comments: General Appearance: WD/WN, no apparent distress Eyes: normal inspection, EOMI, sclerae normal ENT: normal ENT inspection, hearing grossly normal, pharynx normal Neck: supple, no adenopathy, no JVD, trachea midline Respiratory/Chest: chest non-tender, lungs clear, normal breath sounds, no respiratory distress, no accessory muscle use Cardiovascular: no edema, no gallop, no JVD, no murmur, + tachycardia Abdomen: normal bowel sounds, non tender, soft, no organomegaly Extremities: normal range of motion, non-tender, normal inspection, no pedal edema, no calf tenderness, pelvis stable 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: 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, no motor/sensory deficits, alert, normal mood/affect, oriented x 3 Skin: normal color, warm/dry, no rash Lymphatic: no adenopathy Laboratory Results Last 24 Hours Test 10/12/17 05:36 10/12/17 06:52 10/12/17 11:07 10/12/17 16:25 White Blood Count 6.90 K/uL Red Blood Count 3.22 M/uL Hemoglobin 8.5 g/dL Hematocrit 26.1 % Mean Corpuscular Volume 81.1 fL Mean Corpuscular Hemoglobin 26.4 pg Mean Corpuscular Hemoglobin Concent 32.6 g/dl RDW Standard Deviation 52.5 fL RDW Coefficient of Variation 17.4 % Platelet Count 190 K/uL Mean Platelet Volume 9.3 fL Sodium Level 135 mmol/L Potassium Level 3.6 mmol/L Chloride Level 106 mmol/L Carbon Dioxide Level 18 mmol/L Anion Gap 11.0 mmol/L Blood Urea Nitrogen 12 mg/dl Creatinine 1.79 mg/dl Est Creatinine Clear Calc Drug Dose 36.2 ml/min Estimated GFR () 42.3 Estimated GFR (Non- 36.5 BUN/Creatinine Ratio 6.7 Random Glucose 85 mg/dl Calcium Level 7.5 mg/dl Total Bilirubin 0.9 mg/dl Aspartate Amino Transf (AST/SGOT) 40 U/L Alanine Aminotransferase (ALT/SGPT) 52 U/L Alkaline Phosphatase 331 U/L Total Protein 5.5 gm/dl Albumin 1.7 gm/dl Globulin 3.8 gm/dl Albumin/Globulin Ratio 0.4 Bedside Glucose 92 mg/dl 106 mg/dl 98 mg/dl Test 10/12/17 20:41 Bedside Glucose 118 mg/dl Assessment and Plan This is a 72 yo M with PMHx of hepatitis A, HTN, BPH, osteoarthritis, who was recently admitted to [facility] from 09/17-10/01 for urosepsis due to pansentivie Ecoli, acute renal failure and elevated LFTs. He was discharged on IV ceftriaxone for another 20 days for prostatitis. The patient reports that since being discharged he has felt increasingly generalized fatigue and weakness, and spiked a fever of 102 today. Patient notes he has had increasing shortness of breath with minimal activity. - C diff colitis: diarrhea last evening, + for C diff Patient continues to be febrile, but episodes have become less frequent. no abdominal pain, normal WBC for days, diarrhea is not severe likely source of fevers given no other cause, however antibiotics may also cause fevers treat with Vancomycin PO 250mg QID precautions unsure if this is cause of his fever. will continue to treat. - Possible HCAP: evidence of ground glass opacities on CT chest, dyspnea, fever , however, WBC normal for several days persistent fevers despite antibiotics? likely C diff continue Levaquin to cover E coli UTI from prior admission breathing comfortably today, no cough - Persistent fevers: likely from C diff, just diagnosed last night, look for fevers to resolve with Vanco PO sent out vasculitis work up, should be back early this week change to Acetaminophen 1000mg IV q8, less fevers today, look to resolve with Vanco PO difficult to work up vasculitis given his Cr of 1.79, could not perform CT angiography - Recent E coli UTI with prostatitis, recent bacteremia with severe sepsis check urine and blood cultures, no growth thus far after a few days no signs of UTI, this does not appear to be source of fever continue Levaquin indefinitely per ID -Tachycardia Response from infection? will monitor. - Recent SONY, ATN: Cr has improved since last admission, down to 1.9, adequate UO UA was normal except + WBC - Transaminitis: LFT continue to trend down, supporting diagnosis of hepatitis due to sepsis from last admission serology studies were sent last admission, were normal bili is 1.1, alk phos 300's but AST/ALT minimally elevated Elevated ALK phos Unsure as to the cause. Neg. Bone scan last admission. Patient did have elevated PSA in last admission. May be cancer, but imaginng did not show metastasis. may reconsult urology. - Left leg pain: negative for DVT, says pain is chronic from an injury pain controlled -Left hip pain: imaging showed significant OA from previous admission. - Recent GI bleed with gastric ulcer: Hb going down but no signs of bleeding continue Protonix Hb stable HTN - Continue metoprolol tartrate 50 mg BID, hydralazine 50 mg TID, amlodipine 10 mg daily, asa 81 mg daily BPH - Indwelling vega needs changed this admission - it has been approximately 4 weeks since last change was completed. - Continue flomax Hx hepatitis A - LFTs are improved compared to previous admission, trend daily x 3 more days. Osteoarthritis - Continue tylenol for pain in left hip DVT ppx: Teds, scd, heparin subq CODE STATUS: DNR Disposition: From [facility], will return once stable will downgrade to med/surg Discharge planning: other
[2017-10-13 00:53] VITALS: BP 135/55; PULSE 98; TEMP 37.2; O2SAT 95
[2017-10-13] MEDS: SODIUM CHLORIDE 0.9% 1000ML 1,000 ML IV SCH ×2 (03:45→18:25)
[2017-10-13] MEDS: HEPARIN SOD 5000 UNIT/0.5 ML CARP SQ SCH ×3 (05:28→20:50)
[2017-10-13] MEDS: RASPBERRY SYRUP 5 ML UDP PO SCH ×3 (05:29→18:25)
[2017-10-13] MEDS: VANCOMYCIN HCL 250 MG/5 ML SOLN PO SCH ×3 (05:29→18:25)
[2017-10-13 07:03] VITALS: BP 129/68; PULSE 119; TEMP 38.1; O2SAT 95
[2017-10-13] MEDS: HYDROmorphone INJ 1 MG/ML SYR IV PRN ×3 (07:03→18:28)
[2017-10-13] MEDS: ACETAMINOPHEN IV 100 ML IV PRN (07:14)
[2017-10-13] MEDS: FINASTERIDE 5 MG TAB PO SCH (07:44)
[2017-10-13] MEDS: INSULIN ASPART 100 UNITS/ML 3 ML PEN SC SCH ×4 (07:44→20:50)
[2017-10-13] MEDS: METOPROLOL TARTRATE 50 MG TAB PO SCH ×2 (07:45→20:54)
[2017-10-13] MEDS: PANTOprazole SOD 40 MG TAB PO SCH ×2 (07:45→20:54)
[2017-10-13] MEDS: SODIUM BICARBONATE 650 MG TAB PO SCH ×2 (07:45→20:55)
[2017-10-13] MEDS: ASPIRIN 81 MG CHEW PO SCH (07:45)
[2017-10-13] MEDS: CETIRIZINE HCL 10 MG TAB PO SCH (07:45)
[2017-10-13] MEDS: AMLODIPINE BESYLATE 5 MG TAB PO SCH (07:46)
[2017-10-13] MEDS: TAMSULOSIN HCL 0.4 MG CAP PO SCH ×2 (07:46→20:54)
[2017-10-13 08:00] VITALS: O2SAT 95
--- NOTE | 2017-10-13 10:45 | Progress Note ---
Subjective Date of Service: Oct 13, 2017. Subjective Pt evaluation today including: conversation w/ patient, physical exam, chart review, lab review still with fevers, overall curve improved. levaquin stopped yesterday, remains on po vanco for c diff diagnosed over weekend. denies abd pain n/v/d, no cp, no sob. no rigors. No clear source for fever. meds reviewed, none likely to be cause with exception of abx which have been d/c. Only complaint is of pain in left hip. per guards, pt has not been oob. all remaining ros reviewed and are negative. Problem List Medical Problems: (1) Acute renal failure Status: Acute (2) Hyperbilirubinemia Status: Acute (3) Leukocytosis Status: Acute (4) UTI (urinary tract infection) Status: Acute Objective Vital Signs Date Time Temp Pulse Resp B/P (MAP) Pulse Ox O2 Delivery O2 Flow Rate FiO2 10/13/17 08:00 95 Room Air 10/13/17 07:03 38.1 119 20 129/68 (88) 95 Room Air 10/13/17 00:53 37.2 98 16 135/55 (81) 95 Room Air 10/13/17 00:01 Room Air 10/13/17 00:00 Room Air 10/12/17 23:35 37.3 95 17 132/67 (88) 92 Room Air 10/12/17 20:00 Room Air 10/12/17 19:40 37.9 110 22 130/62 (84) 94 Room Air 10/12/17 16:22 37.2 98 18 121/59 (79) 93 Room Air 10/12/17 16:00 Room Air 10/12/17 13:31 38.2 101 117/62 (80) 10/12/17 12:00 Room Air 10/12/17 11:48 37.6 95 16 128/65 (86) 96 Room Air Physical Exam General Appearance: WD/WN, no apparent distress Eyes: normal inspection, EOMI Neck: supple Respiratory/Chest: lungs clear, normal breath sounds, no respiratory distress Cardiovascular: regular rate, rhythm, no edema Abdomen: non tender, soft Extremities: non-tender, no pedal edema 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: alert, oriented x 3 Skin: normal color Laboratory Results Item Value Date Time Urine Culture - Final Complete 10/05/17 1340 Urine,Catheterized NO GROWTH - LESS THAN 1,000 COLONIES/ML Blood Culture - Final Complete 10/05/17 1317 Blood NO GROWTH Blood Culture - Final Complete 10/05/17 1315 Blood NO GROWTH C.difficile Toxin B Gene (PCR) - Final Complete 10/09/17 1750 Stool Positive for C. difficile toxin B gene Last 24 Hours Test 10/12/17 11:07 10/12/17 16:25 10/12/17 20:41 10/13/17 07:31 Bedside Glucose 106 mg/dl 98 mg/dl 118 mg/dl 100 mg/dl Assessment and Plan (1) Fever Assessment & Plan: ? b lactam induced, better overnight, continue to follow. cultures negative, discussed with primary service. If fever continues, would consider imaging hip Discharge planning: other Problem Qualifiers (1) Fever: Fever type: unspecified Qualified Codes: R50.9 - Fever, unspecified
[2017-10-13 14:00] VITALS: BP 137/70; PULSE 100; TEMP 36.9; O2SAT 94
[2017-10-13 14:34] VITALS: BP 132/66; PULSE 106; TEMP 37.1; O2SAT 96
[2017-10-13] MEDS: LOVASTATIN 20 MG TAB PO SCH (20:54)
--- NOTE | 2017-10-13 22:35 | Progress Note ---
Subjective Date of Service: Oct 13, 2017. Subjective Pt evaluation today including: conversation w/ patient, physical exam Patient denies any new symptoms. Problem List Medical Problems: (1) Acute renal failure Status: Acute (2) Hyperbilirubinemia Status: Acute (3) Leukocytosis Status: Acute (4) UTI (urinary tract infection) Status: Acute Review of Systems Constitutional: + fever, No chills, No sweats, No weight loss Eyes: No worsening of vision ENT: No hearing loss Respiratory: No cough, No sputum Cardiac: No chest pain Abdomen: No pain Musculoskeletal: No joint pain Neurologic: No memory loss Psychiatric: No depression symptoms Heme: No abnormal bleeding/bruising Endo: No fatigue Skin: No rash All Other Systems: Reviewed and Negative Medications Current Inpatient Medications Medications (Trade) Dose Ordered Sig/Candelaria Route Start Time Stop Time Status Last Admin Dose Admin Heparin Sodium (Porcine) (Heparin Sq 5000 Unit/0.5ml) 5,000 unit Q8 SQ 10/05/17 22:00 11/04/17 21:59 10/14/17 20:43 5,000 UNIT Ondansetron HCl (Zofran Inj) 4 mg Q6H PRN IV 10/05/17 15:15 11/04/17 15:14 Polyethylene (Miralax Powder Packet) 17 gm DAILY PRN PO 10/05/17 15:15 11/04/17 15:14 Amlodipine Besylate (Norvasc Tab) 10 mg DAILY PO 10/06/17 09:00 11/05/17 08:59 10/14/17 08:30 10 MG Aspirin (Aspirin Chew) 81 mg DAILY PO 10/06/17 09:00 11/05/17 08:59 10/14/17 08:36 81 MG Cetirizine HCl (zyrTEC TAB) 10 mg DAILY PO 10/06/17 09:00 11/05/17 08:59 10/14/17 08:30 10 MG Finasteride (Proscar Tab) 5 mg DAILY PO 10/06/17 09:00 11/05/17 08:59 10/14/17 08:29 5 MG Hydralazine HCl (Apresoline Tab) 50 mg TID PO 10/05/17 21:00 11/04/17 20:59 10/14/17 20:38 50 MG Lovastatin (Mevacor Tab) 20 mg HS PO 10/05/17 21:00 11/04/17 20:59 10/14/17 20:38 20 MG Metoprolol Tartrate (Lopressor Tab) 50 mg BID PO 10/05/17 21:00 11/04/17 20:59 10/14/17 20:38 50 MG Pantoprazole Sodium (Protonix Tab) 40 mg BID PO 10/05/17 21:00 11/04/17 20:59 10/14/17 20:39 40 MG Sodium Bicarbonate (Sodium Bicarbonate Tab) 1,300 mg BID PO 10/05/17 21:00 11/04/17 20:59 10/14/17 20:39 1,300 MG Tamsulosin HCl (Flomax Cap) 0.4 mg BID PO 10/05/17 21:00 11/04/17 20:59 10/14/17 20:38 0.4 MG Miscellaneous (Iv Fluids Completed) 1 ea PRN PRN N/A 10/05/17 15:45 10/05/18 15:44 Glucose (Glucose 40% Gel) 15-30 GRAMS 15 GRAMS... UD PRN PO 10/05/17 23:30 11/04/17 23:29 Glucose (Glucose Chew Tab) 4-8 Tablets 4 Tabl... UD PRN PO 10/05/17 23:30 11/04/17 23:29 Dextrose (Dextrose 50% 50ML Syringe) 25-50ML OF 50% DW IV FOR... UD PRN IV 10/05/17 23:30 11/04/17 23:29 Glucagon (Glucagon Inj) 1 mg UD PRN SQ 10/05/17 23:30 11/04/17 23:29 Insulin Aspart (novoLOG ASPART) SLIDING SCALE ACHS SC 10/06/17 07:00 11/05/17 00:00 Sodium Chloride 1,000 ml @ 75 mls/hr [id number] IV 10/06/17 11:45 11/05/17 11:44 10/14/17 20:36 75 MLS/HR Albuterol/ Ipratropium (Duoneb) 3 ml QIDR PRN INH 10/09/17 12:00 11/04/17 19:59 Hydromorphone HCl (Dilaudid Inj) 1 mg Q4 PRN IV 10/09/17 18:00 10/23/17 17:59 10/14/17 16:44 1 MG Vancomycin HCl (Vancomycin Oral Soln) 250 mg Q6 PO 10/10/17 12:00 10/23/17 19:59 10/14/17 17:59 250 MG Raspberry (Raspberry Syrup 5ml Cup) 5 ml Q6 PO 10/10/17 12:00 10/24/17 11:59 10/14/17 17:59 5 ML Objective Vital Signs Date Time Temp Pulse Resp B/P (MAP) Pulse Ox O2 Delivery O2 Flow Rate FiO2 10/13/17 16:00 Room Air 10/13/17 14:34 37.1 106 18 132/66 (88) 96 Room Air 10/13/17 14:00 36.9 100 18 137/70 (92) 94 Room Air 10/13/17 08:00 95 Room Air 10/13/17 07:03 38.1 119 20 129/68 (88) 95 Room Air 10/13/17 00:53 37.2 98 16 135/55 (81) 95 Room Air 10/13/17 00:01 Room Air 10/13/17 00:00 Room Air 10/12/17 23:35 37.3 95 17 132/67 (88) 92 Room Air Physical Exam Comments: General Appearance: WD/WN, no apparent distress Eyes: normal inspection, EOMI, sclerae normal ENT: normal ENT inspection, hearing grossly normal, pharynx normal Neck: supple, no adenopathy, no JVD, trachea midline Respiratory/Chest: chest non-tender, lungs clear, normal breath sounds, no respiratory distress, no accessory muscle use Cardiovascular: no edema, no gallop, no JVD, no murmur, + tachycardia Abdomen: normal bowel sounds, non tender, soft, no organomegaly Extremities: normal range of motion, non-tender, normal inspection, no pedal edema, no calf tenderness, pelvis stable 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 He was discharged on IV ceftriaxone for another 20 days for prostatitis. The patient reports that since being discharged he has felt increasingly generalized fatigue and weakness, and spiked a fever of 102 today. Patient notes he has had increasing shortness of breath with minimal activity. - C diff colitis: diarrhea last evening, + for C diff Patient continues to be febrile, but episodes have become less frequent. no abdominal pain, normal WBC for days, diarrhea is not severe likely source of fevers given no other cause, however antibiotics may also cause fevers stopped IV antibiotics treat with Vancomycin PO 250mg QID precautions unsure if this is cause of his fever. will continue to treat. - Possible HCAP: evidence of ground glass opacities on CT chest, dyspnea, fever , however, WBC normal for several days persistent fevers despite antibiotics? likely C diff stopped levaquin breathing comfortably today, no cough - Persistent fevers: likely from C diff, just diagnosed last night, look for fevers to resolve with Vanco PO sent out vasculitis work up, should be back early this week change to Acetaminophen 1000mg IV q8, less fevers today, look to resolve with Vanco PO difficult to work up vasculitis given his Cr of 1.79, could not perform CT angiography - Recent E coli UTI with prostatitis, recent bacteremia with severe sepsis check urine and blood cultures, no growth thus far after a few days no signs of UTI, this does not appear to be source of fever continue Levaquin indefinitely per ID -Tachycardia Response from infection? will monitor. - Recent SONY, ATN: Cr has improved since last admission, down to 1.9, adequate UO UA was normal except + WBC - Transaminitis: LFT continue to trend down, supporting diagnosis of hepatitis due to sepsis from last admission serology studies were sent last admission, were normal bili is 1.1, alk phos 300's but AST/ALT minimally elevated Elevated ALK phos Unsure as to the cause. Neg. Bone scan last admission. Patient did have elevated PSA in last admission. May be cancer, but imaginng did not show metastasis. may reconsult urology. - Left leg pain: negative for DVT, says pain is chronic from an injury pain controlled -Left hip pain: imaging showed significant OA from previous admission. - Recent GI bleed with gastric ulcer: Hb going down but no signs of bleeding continue Protonix Hb stable HTN - Continue metoprolol tartrate 50 mg BID, hydralazine 50 mg TID, amlodipine 10 mg daily, asa 81 mg daily BPH - Indwelling vega needs changed this admission - it has been approximately 4 weeks since last change was completed. - Continue flomax Hx hepatitis A - LFTs are improved compared to previous admission, trend daily x 3 more days. Osteoarthritis - Continue tylenol for pain in left hip DVT ppx: Teds, scd, heparin subq CODE STATUS: DNR Disposition: From [facility], will return once stable Discharge planning: other
[2017-10-13 23:48] VITALS: BP 130/70; PULSE 108; TEMP 38.3; O2SAT 95
[2017-10-14] MEDS: RASPBERRY SYRUP 5 ML UDP PO SCH ×5 (00:20→23:27)
[2017-10-14] MEDS: VANCOMYCIN HCL 250 MG/5 ML SOLN PO SCH ×5 (00:20→23:27)
[2017-10-14] MEDS: ACETAMINOPHEN IV 100 ML IV PRN (00:21)
[2017-10-14 02:39] VITALS: TEMP 37.1
[2017-10-14] MEDS: HEPARIN SOD 5000 UNIT/0.5 ML CARP SQ SCH ×3 (05:40→20:43)
[2017-10-14 07:06] VITALS: BP 144/66; PULSE 104; TEMP 36.8; O2SAT 97
[2017-10-14 08:00] VITALS: O2SAT 97
[2017-10-14] MEDS: FINASTERIDE 5 MG TAB PO SCH (08:29)
[2017-10-14] MEDS: METOPROLOL TARTRATE 50 MG TAB PO SCH ×2 (08:29→20:38)
[2017-10-14] MEDS: CETIRIZINE HCL 10 MG TAB PO SCH (08:30)
[2017-10-14] MEDS: AMLODIPINE BESYLATE 5 MG TAB PO SCH (08:30)
[2017-10-14] MEDS: PANTOprazole SOD 40 MG TAB PO SCH ×2 (08:30→20:39)
[2017-10-14] MEDS: TAMSULOSIN HCL 0.4 MG CAP PO SCH ×2 (08:30→20:38)
[2017-10-14] MEDS: SODIUM BICARBONATE 650 MG TAB PO SCH ×2 (08:30→20:39)
[2017-10-14] MEDS: SODIUM CHLORIDE 0.9% 1000ML 1,000 ML IV SCH ×2 (08:33→20:36)
[2017-10-14] MEDS: INSULIN ASPART 100 UNITS/ML 3 ML PEN SC SCH ×4 (08:33→20:39)
[2017-10-14] MEDS: HYDROmorphone INJ 1 MG/ML SYR IV PRN ×3 (08:36→23:29)
[2017-10-14] MEDS: ASPIRIN 81 MG CHEW PO SCH (08:36)
--- NOTE | 2017-10-14 10:17 | Progress Note ---
Subjective Date of Service: Oct 14, 2017. Subjective Fevers continue to improve. There is 1 isolated fever last night of 38.3. The patient is currently afebrile. Levaquin was discontinued yesterday. He remains on oral vancomycin for C diff diagnosed on the 09 of October. There are no overnight events. Blood cultures are negative and final. Problem List Medical Problems: (1) Acute renal failure Status: Acute (2) Hyperbilirubinemia Status: Acute (3) Leukocytosis Status: Acute (4) UTI (urinary tract infection) Status: Acute Objective Vital Signs Date Time Temp Pulse Resp B/P (MAP) Pulse Ox O2 Delivery O2 Flow Rate FiO2 10/14/17 08:00 97 Room Air 10/14/17 07:06 36.8 104 18 144/66 (92) 97 Room Air 10/14/17 02:39 37.1 10/14/17 00:00 Room Air 10/13/17 23:48 38.3 108 20 130/70 (90) 95 Room Air 10/13/17 16:00 Room Air 10/13/17 14:34 37.1 106 18 132/66 (88) 96 Room Air 10/13/17 14:00 36.9 100 18 137/70 (92) 94 Room Air Laboratory Results Item Value Date Time Blood Culture - Final Complete 10/05/17 1317 Blood NO GROWTH Blood Culture - Final Complete 10/05/17 1315 Blood NO GROWTH Urine Culture - Final Complete 10/05/17 1340 Urine,Catheterized NO GROWTH - LESS THAN 1,000 COLONIES/ML C.difficile Toxin B Gene (PCR) - Final Complete 10/09/17 1750 Stool Positive for C. difficile toxin B gene Last 24 Hours Test 10/13/17 11:17 10/13/17 16:29 10/13/17 20:15 10/14/17 07:27 Bedside Glucose 104 mg/dl 102 mg/dl 108 mg/dl 89 mg/dl Assessment and Plan (1) C. difficile colitis Assessment & Plan: Continue vancomycin at current dose. I would suggest a 21 day course of oral vancomycin to treat C diff. His symptoms are improving. (2) Fever Assessment & Plan: Unclear etiology if further from C diff or beta-lactam antibiotics however fever curve has been improving and he will be monitored off of systemic antibiotics. No further Infectious Diseases recommendations at this time. Discharge planning: other Problem Qualifiers (1) Fever: Fever type: unspecified Qualified Codes: R50.9 - Fever, unspecified
[2017-10-14 13:51] VITALS: BP 130/61; PULSE 96; TEMP 37.5; O2SAT 95
[2017-10-14 14:51] VITALS: BP 135/68; PULSE 109; TEMP 37.2; O2SAT 94
[2017-10-14] MEDS: LOVASTATIN 20 MG TAB PO SCH (20:38)
--- NOTE | 2017-10-14 23:39 | Progress Note ---
Subjective Date of Service: Oct 14, 2017. Subjective Pt evaluation today including: conversation w/ patient, physical exam 72 yo male reports feeling well. He denies any nausea, vomiting, SOB, chest pain. Patient is having intermittent fevers during the past day as per nursing staff. Problem List Medical Problems: (1) Acute renal failure Status: Acute (2) Hyperbilirubinemia Status: Acute (3) Leukocytosis Status: Acute (4) UTI (urinary tract infection) Status: Acute Review of Systems Constitutional: No fever, No chills Eyes: No worsening of vision ENT: No hearing loss Respiratory: No cough Cardiac: No chest pain Abdomen: No pain Neurologic: No memory loss Psychiatric: No depression symptoms Endo: No fatigue Skin: No rash All Other Systems: Reviewed and Negative Objective Vital Signs Date Time Temp Pulse Resp B/P (MAP) Pulse Ox O2 Delivery O2 Flow Rate FiO2 10/14/17 16:00 Room Air 10/14/17 14:51 37.2 109 20 135/68 (90) 94 Room Air 10/14/17 13:51 37.5 96 18 130/61 (84) 95 Room Air 10/14/17 08:00 97 Room Air 10/14/17 07:06 36.8 104 18 144/66 (92) 97 Room Air 10/14/17 02:39 37.1 10/14/17 00:00 Room Air 10/13/17 23:48 38.3 108 20 130/70 (90) 95 Room Air Physical Exam Comments: General Appearance: WD/WN, no apparent distress Eyes: normal inspection, EOMI, sclerae normal ENT: normal ENT inspection, hearing grossly normal, pharynx normal Neck: supple, no adenopathy, no JVD, trachea midline Respiratory/Chest: chest non-tender, lungs clear, normal breath sounds, no respiratory distress, no accessory muscle use Cardiovascular: no edema, no gallop, no JVD, no murmur, + tachycardia Abdomen: normal bowel sounds, non tender, soft, no organomegaly Extremities: normal range of motion, non-tender, normal inspection, no pedal edema, no calf tenderness, pelvis stable 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: 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 He was discharged on IV ceftriaxone for another 20 days for prostatitis. The patient reports that since being discharged he has felt increasingly generalized fatigue and weakness, and spiked a fever of 102 today. Patient notes he has had increasing shortness of breath with minimal activity. - C diff colitis: diarrhea last evening, + for C diff Antibiotics stopped on the . Since then no fever. Could be antibiotic induced fever. Unknown source OR fever. Plan is to monitor fever curve off antibiotics. no abdominal pain, normal WBC for days, diarrhea is not severe however will continue to treat with Vancomycin PO 250mg QID, continue contact precautions I and ID are not sure if C.diff is cause of fever - Possible HCAP: evidence of ground glass opacities on CT chest, dyspnea, fever , however, WBC normal for several days persistent fevers despite antibiotics? likely C diff stopped levaquin breathing comfortably today, no cough - Persistent fevers: likely from C diff, just diagnosed last night, look for fevers to resolve with Vanco PO MELANIE, ANTIPROTENASE 3, ANTI MYELOPEROXIDASE, ANCA, C3, C4 RESULTS were negative. Only postive result was CH50. Elevated CH50 has no specific clinical significance. This is an expected part of the host's response to infection and injury. change to Acetaminophen 1000mg IV q8, less fevers today, look to resolve with Vanco PO difficult to work up vasculitis given his Cr of 1.79, could not perform CT angiography - Recent E coli UTI with prostatitis, recent bacteremia with severe sepsis check urine and blood cultures, no growth thus far after a few days no signs of UTI, this does not appear to be source of fever continue Levaquin indefinitely per ID -Tachycardia Response from infection? will monitor. - Recent SONY, ATN: Cr has improved since last admission, down to 1.79, adequate UO UA was normal except + WBC - Transaminitis: LFT continue to trend down, supporting diagnosis of hepatitis due to sepsis from last admission serology studies were sent last admission, were normal bili is 1.1, alk phos 300's but AST/ALT minimally elevated Elevated ALK phos Unsure as to the cause. Neg. Bone scan last admission. Patient did have elevated PSA in last admission. May be cancer, but imagining did not show metastasis. may reconsult urology. - Left leg pain: negative for DVT, says pain is chronic from an injury pain controlled -Left hip pain: imaging showed significant OA from previous admission. - Recent GI bleed with gastric ulcer: Hb going down but no signs of bleeding continue Protonix Hb stable HTN - Continue metoprolol tartrate 50 mg BID, hydralazine 50 mg TID, amlodipine 10 mg daily, asa 81 mg daily BPH Was changed during admission. - Continue flomax Hx hepatitis A - LFTs are improved compared to previous admission, trend daily x 3 more days. Osteoarthritis - Continue tylenol for pain in left hip DVT ppx: Teds, scd, heparin subq CODE STATUS: DNR Disposition: From [facility], will return once stable Discharge planning: other
[2017-10-15 00:15] VITALS: BP 130/70; PULSE 109; TEMP 38.6; O2SAT 93
[2017-10-15] MEDS ORDERED: NURSING VERBAL MED ORDER ONE (00:30)
[2017-10-15] MEDS: ACETAMINOPHEN 325 MG TAB PO PRN ×2 (01:51→16:12)
[2017-10-15] MEDS: HEPARIN SOD 5000 UNIT/0.5 ML CARP SQ SCH ×3 (05:58→22:03)
[2017-10-15] MEDS: RASPBERRY SYRUP 5 ML UDP PO SCH ×4 (05:59→23:35)
[2017-10-15] MEDS: VANCOMYCIN HCL 250 MG/5 ML SOLN PO SCH ×4 (06:00→23:36)
[2017-10-15] MEDS: HYDROmorphone INJ 1 MG/ML SYR IV PRN ×3 (06:01→20:22)
[2017-10-15 07:24] VITALS: BP 131/65; PULSE 99; TEMP 37.3; O2SAT 95
[2017-10-15] MEDS: INSULIN ASPART 100 UNITS/ML 3 ML PEN SC SCH ×4 (07:55→21:00)
[2017-10-15] MEDS: PANTOprazole SOD 40 MG TAB PO SCH ×2 (08:42→20:25)
[2017-10-15] MEDS: AMLODIPINE BESYLATE 5 MG TAB PO SCH (08:43)
[2017-10-15] MEDS: SODIUM BICARBONATE 650 MG TAB PO SCH ×2 (08:43→20:25)
[2017-10-15] MEDS: TAMSULOSIN HCL 0.4 MG CAP PO SCH ×2 (08:43→20:24)
[2017-10-15] MEDS: METOPROLOL TARTRATE 50 MG TAB PO SCH ×2 (08:43→20:25)
[2017-10-15] MEDS: CETIRIZINE HCL 10 MG TAB PO SCH (08:43)
[2017-10-15] MEDS: FINASTERIDE 5 MG TAB PO SCH (08:44)
[2017-10-15] MEDS: SODIUM CHLORIDE 0.9% 1000ML 1,000 ML IV SCH ×2 (08:55→22:04)
[2017-10-15] MEDS: ASPIRIN 81 MG CHEW PO SCH (08:55)
[2017-10-15 16:02] VITALS: BP 129/73; PULSE 105; TEMP 37.9; O2SAT 94
[2017-10-15 17:00] VITALS: TEMP 37.4
[2017-10-15] MEDS: LOVASTATIN 20 MG TAB PO SCH (20:25)
[2017-10-15 23:08] VITALS: BP 137/64; PULSE 102; TEMP 38.6; O2SAT 92
[2017-10-16] MEDS: ACETAMINOPHEN 325 MG TAB PO PRN ×3 (03:41→23:58)
[2017-10-16] MEDS ORDERED: PIPERACILLIN/TAZOBACTAM 3.375 GM/100ML D5W IV STA (04:18)
--- NOTE | 2017-10-16 04:20 | Progress Note ---
Progress Note Date of Service Oct 16, 2017. Progress Note contacting regarding recurring fever throughout the night as high as 39C CBC, CMP, blood cultures, ua, chest portable, peripheral smear - in light of gram neg bacteremia on previous admission will give one dose of zosyn as they are c diff positive; defer to day team to continue - will also add Florastor could consider quantiferon to r/o TB, RPR, and ASO titer via day team HIV neg on previous admission CMV negative EBV IgG positive IgM negative with EBNA positive reflecting past infection Hep C neg ... possible sarcoidosis? with need for steroids? hypocalcemic but also had labs reflective of anemia of chronic disease ( hypoalbuminemia, ferritin elevated/ low Fe with anemia) ; add ionized calcium and Mg
[2017-10-16 04:56] LABS: BASO % 0.3 %; BASO ABS # 0.02 K/uL (0-0.2); EOS % 3.7 %; EOS ABS # 0.27 K/uL (0-0.5); HEMATOCRIT 24.4 % (42-52); HEMOGLOBIN 7.8 g/dL (14.0-18.0); IG# 0.04 K/uL (0.00-0.02); LYMPH % 22.1 %; LYMPH ABS # 1.61 K/uL (1.2-3.4); MEAN CELL VOLUME 81.1 fL (80-100); MEAN CORPUSCULAR HEMOGLOBIN 25.9 pg (25-34); MEAN PLATELET VOLUME 9.4 fL (7.4-10.4); MONO % 12.4 %; NEUT ABS # 4.44 K/uL (1.4-6.5); PLATELET COUNT 249 K/uL (130-400); RED CELL DISTRIBUTION WIDTH CV 16.9 % (11.5-14.5); RED CELL DISTRIBUTION WIDTH SD 50.2 fL (36.4-46.3); WHITE BLOOD COUNT 7.28 K/uL (4.8-10.8)
[2017-10-16 05:06] LABS: INR 1.2 (0.9-1.1)
[2017-10-16] MEDS: VANCOMYCIN HCL 250 MG/5 ML SOLN PO SCH ×4 (05:51→23:57)
[2017-10-16] MEDS: RASPBERRY SYRUP 5 ML UDP PO SCH ×4 (05:51→23:57)
[2017-10-16] MEDS: HEPARIN SOD 5000 UNIT/0.5 ML CARP SQ SCH ×3 (06:11→22:21)
[2017-10-16] MEDS: INSULIN ASPART 100 UNITS/ML 3 ML PEN SC SCH ×4 (06:30→20:55)
--- NOTE | 2017-10-16 06:30 | DIAGNOSTIC IMAGING REPORT ---
CHEST ONE VIEW PORTABLE CLINICAL HISTORY: 72 years-old Male presenting with recurring fever. TECHNIQUE: Portable upright AP view of the chest was obtained. COMPARISON: 10/05/[address] from 09/23/2017. FINDINGS: Cardiomediastinal silhouette normal. Vague patchy opacities in the right mid to upper lung and left mid to lung base. Small left effusion may be present in no large pneumothorax. Osseous structures normal. Upper abdomen normal. IMPRESSION: 1. Findings suspicious for multifocal pneumonia. Further evaluation with dedicated PA and lateral views to be considered. The report will be called/faxed according to standard departmental protocol. Electronically signed by: Suman Cope M.D. 10/16/2017 6:28 AM Dictated Date/Time: 10/16/2017 6:26 AM
[2017-10-16 07:01] LABS: PTT PATIENT 39.8 SECONDS (21.0-31.0)
[2017-10-16 07:15] VITALS: BP 128/64; PULSE 107; TEMP 37.7; O2SAT 93
[2017-10-16 07:19] LABS: ALBUMIN 1.6 gm/dl (3.4-5.0); CALCIUM 7.3 mg/dl (8.5-10.1); CREATININE 1.56 mg/dl (0.60-1.40); POTASSIUM 3.4 mmol/L (3.5-5.1)
[2017-10-16 07:22] LABS: TOTAL PROTEIN 5.4 gm/dl (6.4-8.2)
--- NOTE | 2017-10-16 08:14 | Progress Note ---
Subjective Date of Service: Oct 15, 2017. Subjective Pt evaluation today including: conversation w/ patient Patient today has no complaints, but is still having fevers. Only complaint patient is having is his left hip pain which is chronic. Patient denies SOB, nausea, vomiting. Problem List Medical Problems: (1) Acute renal failure Status: Acute (2) Hyperbilirubinemia Status: Acute (3) Leukocytosis Status: Acute (4) UTI (urinary tract infection) Status: Acute Review of Systems Constitutional: No fever, No chills Respiratory: No cough, No sputum Cardiac: No chest pain Abdomen: No pain Musculoskeletal: No joint pain Neurologic: No memory loss Psychiatric: No depression symptoms Heme: No abnormal bleeding/bruising Endo: No fatigue Skin: No rash All Other Systems: Reviewed and Negative Objective Vital Signs Date Time Temp Pulse Resp B/P (MAP) Pulse Ox O2 Delivery O2 Flow Rate FiO2 10/16/17 07:15 37.7 107 16 128/64 (85) 93 Room Air 10/16/17 00:15 Room Air 10/15/17 23:08 38.6 102 20 137/64 (88) 92 Room Air 10/15/17 17:00 37.4 10/15/17 16:10 Room Air 10/15/17 16:02 37.9 105 18 129/73 (91) 94 Room Air 10/15/17 08:40 Room Air Physical Exam Comments: General Appearance: WD/WN, no apparent distress Eyes: normal inspection, EOMI, sclerae normal ENT: normal ENT inspection, hearing grossly normal, pharynx normal Neck: supple, no adenopathy, no JVD, trachea midline Respiratory/Chest: chest non-tender, lungs clear, normal breath sounds, no respiratory distress, no accessory muscle use Cardiovascular: no edema, no gallop, no JVD, no murmur, + tachycardia Abdomen: normal bowel sounds, non tender, soft, no organomegaly Extremities: normal range of motion, non-tender, normal inspection, no pedal edema, no calf tenderness, pelvis stable 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: 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, no motor/sensory deficits, alert, normal mood/affect, oriented x 3 Skin: normal color, warm/dry, no rash Lymphatic: no adenopathy Laboratory Results Last 24 Hours Test 10/15/17 11:29 10/15/17 16:44 10/15/17 20:15 10/16/17 04:30 Bedside Glucose 100 mg/dl 106 mg/dl 90 mg/dl White Blood Count 7.28 K/uL Red Blood Count 3.01 M/uL Hemoglobin 7.8 g/dL Hematocrit 24.4 % Mean Corpuscular Volume 81.1 fL Mean Corpuscular Hemoglobin 25.9 pg Mean Corpuscular Hemoglobin Concent 32.0 g/dl Platelet Count 249 K/uL Mean Platelet Volume 9.4 fL Neutrophils (%) (Auto) 61.0 % Lymphocytes (%) (Auto) 22.1 % Monocytes (%) (Auto) 12.4 % Eosinophils (%) (Auto) 3.7 % Basophils (%) (Auto) 0.3 % Neutrophils # (Auto) 4.44 K/uL Lymphocytes # (Auto) 1.61 K/uL Monocytes # (Auto) 0.90 K/uL Eosinophils # (Auto) 0.27 K/uL Basophils # (Auto) 0.02 K/uL RDW Standard Deviation 50.2 fL RDW Coefficient of Variation 16.9 % Immature Granulocyte % (Auto) 0.5 % Immature Granulocyte # (Auto) 0.04 K/uL Red Blood Cell Morphology Unremarkable Prothrombin Time 12.5 SECONDS Prothromb Time International Ratio 1.2 C-Reactive Protein 9.22 mg/dl Test 10/16/17 04:43 10/16/17 05:45 10/16/17 06:30 10/16/17 07:35 Erythrocyte Sedimentation Rate 45 mm/hr Lactic Acid Level 0.9 mmol/L Urine Color YELLOW Urine Appearance CLEAR Urine pH 6.5 Urine Specific [place] 1.008 Urine Protein NEG Urine Glucose (UA) NEG Urine Ketones NEG Urine Occult Blood 3+ Urine Nitrite NEG Urine Bilirubin NEG Urine Urobilinogen NEG Urine Leukocyte Esterase LARGE Urine WBC (Auto) >30 /hpf Urine RBC (Auto) >30 /hpf Urine Hyaline Casts (Auto) 1-5 /lpf Urine Epithelial Cells (Auto) >30 /lpf Urine Bacteria (Auto) 1+ Urine Renal Epithelial Cells /lpf Urine Crystals Urine Mucus PRESENT Urine Yeast (Auto) Activated Partial Thromboplast Time 39.8 SECONDS Partial Thromboplastin Ratio 1.5 Sodium Level 138 mmol/L Potassium Level 3.4 mmol/L Chloride Level 108 mmol/L Carbon Dioxide Level 20 mmol/L Anion Gap 10.0 mmol/L Blood Urea Nitrogen 7 mg/dl Creatinine 1.56 mg/dl Est Creatinine Clear Calc Drug Dose 41.5 ml/min Estimated GFR () 50.0 Estimated GFR (Non- 43.1 BUN/Creatinine Ratio 4.7 Random Glucose 101 mg/dl Calcium Level 7.3 mg/dl Ionized Calcium 1.07 mmol/l Magnesium Level 1.3 mg/dl Total Bilirubin 0.8 mg/dl Aspartate Amino Transf (AST/SGOT) 32 U/L Alanine Aminotransferase (ALT/SGPT) 34 U/L Alkaline Phosphatase 236 U/L Total Protein 5.4 gm/dl Albumin 1.6 gm/dl Globulin 3.8 gm/dl Albumin/Globulin Ratio 0.4 Procalcitonin 0.43 ng/ml Bedside Glucose 98 mg/dl Assessment and Plan This is a 72 yo M with PMHx of hepatitis A, HTN, BPH, osteoarthritis, who was recently admitted to [facility] from 09/17-10/01 for urosepsis due to pansentivie Ecoli, acute renal failure and elevated LFTs. He was discharged on IV ceftriaxone for another 20 days for prostatitis. The patient reports that since being discharged he has felt increasingly generalized fatigue and weakness, and spiked a fever of 102 today. Patient notes he has had increasing shortness of breath with minimal activity. - C diff colitis: diarrhea last evening, + for C diff Antibiotics stopped on the . Since then no fever for about 24 hours, but it returned this AM Could be antibiotic induced fever. Fever curve though looks improved as compared to when patient came in initially Unknown source OR fever. Plan is to continue to monitor fever curve off antibiotics. no abdominal pain, normal WBC for days, diarrhea appears to have resolved however will continue to treat with Vancomycin PO 250mg QID, continue contact precautions ID is not sure if C.diff is cause of fever I also suspect that ID is not the cause of this fever, especially now that his diarrhea has improved - Possible HCAP: evidence of ground glass opacities on CT chest, dyspnea, fever , however, WBC normal for several days persistent fevers despite antibiotics? likely C diff stopped levaquin breathing comfortably today, no cough - Persistent fevers: likely from C diff, just diagnosed last night, look for fevers to resolve with Vanco PO MELANIE, ANTIPROTENASE 3, ANTI MYELOPEROXIDASE, ANCA, C3, C4 RESULTS were negative. Only postive result was CH50. Elevated CH50 has no specific clinical significance. This is an expected part of the host's response to infection and injury. change to Acetaminophen 1000mg IV q8, less fevers today, look to resolve with Vanco PO difficult to work up vasculitis given his Cr of 1.79, could not perform CT angiography - Recent E coli UTI with prostatitis, recent bacteremia with severe sepsis check urine and blood cultures, no growth thus far after a few days no signs of UTI, this does not appear to be source of fever continue Levaquin indefinitely per ID -Tachycardia Response from infection? will monitor. - Recent SONY, ATN: Cr has improved since last admission, down to 1.79, adequate UO UA was normal except + WBC - Transaminitis: LFT continue to trend down, supporting diagnosis of hepatitis due to sepsis from last admission serology studies were sent last admission, were normal bili is 1.1, alk phos 300's but AST/ALT minimally elevated Elevated ALK phos Unsure as to the cause. Neg. Bone scan last admission. Patient did have elevated PSA in last admission. May be cancer, but imagining did not show metastasis. may reconsult urology. - Left leg pain: negative for DVT, says pain is chronic from an injury pain controlled -Left hip pain: imaging showed significant OA from previous admission. - Recent GI bleed with gastric ulcer: Hb going down but no signs of bleeding continue Protonix Hb stable HTN - Continue metoprolol tartrate 50 mg BID, hydralazine 50 mg TID, amlodipine 10 mg daily, asa 81 mg daily BPH Was changed during admission. - Continue flomax Hx hepatitis A - LFTs are improved compared to previous admission, trend daily x 3 more days. Osteoarthritis - Continue tylenol for pain in left hip DVT ppx: Teds, scd, heparin subq CODE STATUS: DNR Disposition: From [facility], will return once stable Discharge planning: other
[2017-10-16] MEDS: HYDROmorphone INJ 1 MG/ML SYR IV PRN ×3 (09:57→22:27)
[2017-10-16 10:00] VITALS: O2SAT 93
[2017-10-16] MEDS: ASPIRIN 81 MG CHEW PO SCH (10:08)
[2017-10-16] MEDS: TAMSULOSIN HCL 0.4 MG CAP PO SCH ×2 (10:10→20:54)
[2017-10-16] MEDS: SACCHAROMYCES BOUL (FLORASTOR) 250 MG CAP PO SCH (10:10)
[2017-10-16] MEDS: METOPROLOL TARTRATE 50 MG TAB PO SCH ×2 (10:11→20:55)
[2017-10-16] MEDS: AMLODIPINE BESYLATE 5 MG TAB PO SCH (10:11)
[2017-10-16] MEDS: FINASTERIDE 5 MG TAB PO SCH (10:12)
[2017-10-16] MEDS: PANTOprazole SOD 40 MG TAB PO SCH ×2 (10:12→20:54)
[2017-10-16] MEDS: SODIUM BICARBONATE 650 MG TAB PO SCH ×2 (10:13→20:54)
[2017-10-16] MEDS: CETIRIZINE HCL 10 MG TAB PO SCH (10:13)
--- NOTE | 2017-10-16 11:04 | DIAGNOSTIC IMAGING REPORT ---
(RENAL)RETROPERITON COMP CLINICAL HISTORY: 72 years-old Male presenting with recurrent uti. TECHNIQUE: Real-time grayscale and limited color Doppler ultrasound imaging of the kidneys and bladder was performed. COMPARISON: CT from 10/05/2017. FINDINGS: Right kidney: Normal echogenicity of renal parenchyma. Right kidney measures 10.9 cm. No hydronephrosis. No convincing evidence of calculus or mass. Normal perfusion. Left kidney: Normal echogenicity of renal parenchyma. Left kidney measures 12.2 cm. No hydronephrosis. 1 cm upper pole simple appearing cyst. Normal perfusion. Bladder: Hamm catheter decompresses the urinary bladder. Other: None. IMPRESSION: 1. Essentially renal ultrasound. No obstruction. Electronically signed by: Suman Cope M.D. 10/16/2017 11:03 AM Dictated Date/Time: 10/16/2017 11:01 AM
[2017-10-16] MEDS: SODIUM CHLORIDE 0.9% 1000ML 1,000 ML IV SCH (12:31)
[2017-10-16 15:29] VITALS: BP 148/55; PULSE 111; TEMP 38.8; O2SAT 93
[2017-10-16] MEDS ORDERED: PIPERACILL/TAZOBAC CONSULT ACTIVE PRN (17:15)
[2017-10-16] MEDS: PIPERACILL/TAZOBAC IV 3.375 GM in DEXTROSE 5% 100ML 100 ML IV SCH (18:21)
[2017-10-16 20:40] VITALS: BP 142/73; PULSE 110; TEMP 37.8; O2SAT 93
[2017-10-16] MEDS: LOVASTATIN 20 MG TAB PO SCH (20:54)
[2017-10-16 23:05] VITALS: BP 129/73; PULSE 106; TEMP 39.1; O2SAT 87
[2017-10-16 23:30] VITALS: O2SAT 95
[2017-10-17] VITALS (7 sets, daily range): BP systolic 107–123; BP diastolic 61–70; PULSE 82–120; TEMP 37.1–37.9; O2SAT 96–98
[2017-10-17] MEDS: SODIUM CHLORIDE 0.9% 1000ML 1,000 ML IV SCH ×2 (01:50→21:23)
[2017-10-17] MEDS: PIPERACILL/TAZOBAC IV 3.375 GM in DEXTROSE 5% 100ML 100 ML IV SCH ×3 (01:56→18:58)
[2017-10-17] MEDS: HYDROmorphone INJ 1 MG/ML SYR IV PRN ×3 (04:53→19:03)
[2017-10-17 05:04] LABS: BASO % 0.4 %; BASO ABS # 0.03 K/uL (0-0.2); EOS % 4.1 %; EOS ABS # 0.29 K/uL (0-0.5); HEMATOCRIT 26.7 % (42-52); HEMOGLOBIN 8.7 g/dL (14.0-18.0); IG# 0.02 K/uL (0.00-0.02); MEAN CELL VOLUME 80.7 fL (80-100); MEAN CORPUSCULAR HEMOGLOBIN 26.3 pg (25-34); MEAN CORPUSCULAR HGB CONC 32.6 g/dl (32-36); MEAN PLATELET VOLUME 9.1 fL (7.4-10.4); MONO % 11.9 %; MONO ABS # 0.84 K/uL (0.11-0.59); NEUT % 59.3 %; PLATELET COUNT 346 K/uL (130-400); RED CELL DISTRIBUTION WIDTH CV 16.6 % (11.5-14.5); RED CELL DISTRIBUTION WIDTH SD 49.2 fL (36.4-46.3); WHITE BLOOD COUNT 7.08 K/uL (4.8-10.8)
[2017-10-17 05:21] LABS: ALBUMIN 1.5 gm/dl (3.4-5.0); CALCIUM 7.2 mg/dl (8.5-10.1); CREATININE 1.55 mg/dl (0.60-1.40); POTASSIUM 3.5 mmol/L (3.5-5.1)
[2017-10-17 05:24] LABS: PHOSPHORUS 2.3 mg/dl (2.5-4.9); TOTAL PROTEIN 5.6 gm/dl (6.4-8.2)
[2017-10-17] MEDS ORDERED: METHYLPREDNISOLONE 125 MG VIAL IV STA (05:26)
[2017-10-17] MEDS: VANCOMYCIN HCL 250 MG/5 ML SOLN PO SCH ×3 (05:48→18:59)
[2017-10-17] MEDS: RASPBERRY SYRUP 5 ML UDP PO SCH ×3 (05:48→18:58)
[2017-10-17] MEDS: HEPARIN SOD 5000 UNIT/0.5 ML CARP SQ SCH ×3 (05:51→21:55)
[2017-10-17] MEDS: ACETAMINOPHEN 325 MG TAB PO PRN (05:55)
[2017-10-17] MEDS: INSULIN ASPART 100 UNITS/ML 3 ML PEN SC SCH ×4 (06:30→21:54)
[2017-10-17] MEDS: TAMSULOSIN HCL 0.4 MG CAP PO SCH ×2 (07:56→21:52)
[2017-10-17] MEDS: SACCHAROMYCES BOUL (FLORASTOR) 250 MG CAP PO SCH (07:57)
[2017-10-17] MEDS: METOPROLOL TARTRATE 50 MG TAB PO SCH ×2 (07:57→21:51)
[2017-10-17] MEDS: AMLODIPINE BESYLATE 5 MG TAB PO SCH (07:58)
[2017-10-17] MEDS: SODIUM BICARBONATE 650 MG TAB PO SCH ×2 (07:59→21:52)
[2017-10-17] MEDS: PANTOprazole SOD 40 MG TAB PO SCH ×2 (07:59→21:51)
[2017-10-17] MEDS: FINASTERIDE 5 MG TAB PO SCH (07:59)
[2017-10-17] MEDS: CETIRIZINE HCL 10 MG TAB PO SCH (08:00)
[2017-10-17] MEDS: ASPIRIN 81 MG CHEW PO SCH (08:11)
--- NOTE | 2017-10-17 08:18 | DIAGNOSTIC IMAGING REPORT ---
CT SCAN OF THE CHEST WITHOUT IV CONTRAST CLINICAL HISTORY: Hypoxia. COMPARISON STUDY: Chest x-ray dated 10/17/2017. Chest CT dated 09/23/2017. TECHNIQUE: CT scan of the thorax was performed from the thoracic inlet to the upper abdomen. Images are reviewed in the axial, sagittal, and coronal planes. IV contrast was not administered for this examination as per the referring clinician. A dose lowering technique was utilized adhering to the principles of ALARA. CT DOSE: 217.58 mGy.cm FINDINGS: Thyroid: Imaged portions of the thyroid gland are normal in size and attenuation. Thoracic aorta: There is mild atherosclerotic calcification of the thoracic aorta, which is normal in caliber and demonstrates standard 3-vessel arch anatomy. Heart: The heart is mildly enlarged and without pericardial effusion. Lungs and pleural spaces: There are small to moderate pleural effusions, right larger than left with associated atelectasis. Fluid is noted along the left major fissure. Diffuse subpleural reticulation is identified. Groundglass change is present throughout both lungs, most confluent in the right upper lobe. Mediastinum: There is no mediastinal lymphadenopathy. Calli: Not well assessed without IV contrast. Axillae: There is no axillary lymphadenopathy. Upper abdomen: There is a small hiatal hernia. There is trace perihepatic fluid. Partially visualized upper abdominal viscera is otherwise within normal limits. Skeletal structures: The skeletal structures are osteopenic. No lytic or blastic bony lesions are seen. IMPRESSION: 1. Right larger than left pleural effusions have significantly increased in size from 09/23/2017. 2. Cardiomegaly. 3. Groundglass change is present throughout both lungs, most confluent in the right upper lobe. This appears somewhat cleared from 09/23/2017. Differential considerations include an infectious/inflammatory pneumonitis, a component of pulmonary edema, or less pulmonary hemorrhage or a chronic hypersensitivity reaction. Clinical correlation will be essential. 4. There is no mediastinal lymphadenopathy. 5. Trace perihepatic fluid is noted. Electronically signed by: Celestine Quiroz M.D. 10/17/2017 8:16 AM Dictated Date/Time: 10/17/2017 8:11 AM
--- NOTE | 2017-10-17 08:21 | Progress Note ---
Subjective Date of Service: Oct 16, 2017. Subjective Patient seen on October 16 at 14:00 Patient reports no change from day prior. No worsening of his symptoms. 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 Despite fever, again overnight patient did not have any symptoms. Problem List Medical Problems: (1) Acute renal failure Status: Acute (2) Hyperbilirubinemia Status: Acute (3) Leukocytosis Status: Acute (4) UTI (urinary tract infection) Status: Acute Review of Systems Constitutional: + fever, No chills Eyes: No worsening of vision, No eye pain ENT: No hearing loss Respiratory: No cough Cardiac: No chest pain Abdomen: No pain Musculoskeletal: No joint pain Neurologic: No memory loss Psychiatric: No depression symptoms Heme: No abnormal bleeding/bruising Skin: No rash Medications Current Inpatient Medications Medications (Trade) Dose Ordered Sig/Candelaria Route Start Time Stop Time Status Last Admin Dose Admin Heparin Sodium (Porcine) (Heparin Sq 5000 Unit/0.5ml) 5,000 unit Q8 SQ 10/05/17 22:00 11/04/17 21:59 10/17/17 05:51 5,000 UNIT Ondansetron HCl (Zofran Inj) 4 mg Q6H PRN IV 10/05/17 15:15 11/04/17 15:14 Polyethylene (Miralax Powder Packet) 17 gm DAILY PRN PO 10/05/17 15:15 11/04/17 15:14 Amlodipine Besylate (Norvasc Tab) 10 mg DAILY PO 10/06/17 09:00 11/05/17 08:59 10/17/17 07:58 10 MG Aspirin (Aspirin Chew) 81 mg DAILY PO 10/06/17 09:00 11/05/17 08:59 10/17/17 08:11 81 MG Cetirizine HCl (zyrTEC TAB) 10 mg DAILY PO 10/06/17 09:00 11/05/17 08:59 10/17/17 08:00 10 MG Finasteride (Proscar Tab) 5 mg DAILY PO 10/06/17 09:00 11/05/17 08:59 10/17/17 07:59 5 MG Hydralazine HCl (Apresoline Tab) 50 mg TID PO 10/05/17 21:00 11/04/17 20:59 10/17/17 07:55 50 MG Lovastatin (Mevacor Tab) 20 mg HS PO 10/05/17 21:00 11/04/17 20:59 10/16/17 20:54 20 MG Metoprolol Tartrate (Lopressor Tab) 50 mg BID PO 10/05/17 21:00 11/04/17 20:59 10/17/17 07:57 50 MG Pantoprazole Sodium (Protonix Tab) 40 mg BID PO 10/05/17 21:00 11/04/17 20:59 10/17/17 07:59 40 MG Sodium Bicarbonate (Sodium Bicarbonate Tab) 1,300 mg BID PO 10/05/17 21:00 11/04/17 20:59 10/17/17 07:59 1,300 MG Tamsulosin HCl (Flomax Cap) 0.4 mg BID PO 10/05/17 21:00 11/04/17 20:59 10/17/17 07:56 0.4 MG Miscellaneous (Iv Fluids Completed) 1 ea PRN PRN N/A 10/05/17 15:45 10/05/18 15:44 Glucose (Glucose 40% Gel) 15-30 GRAMS 15 GRAMS... UD PRN PO 10/05/17 23:30 11/04/17 23:29 Glucose (Glucose Chew Tab) 4-8 Tablets 4 Tabl... UD PRN PO 10/05/17 23:30 11/04/17 23:29 Dextrose (Dextrose 50% 50ML Syringe) 25-50ML OF 50% DW IV FOR... UD PRN IV 10/05/17 23:30 11/04/17 23:29 Glucagon (Glucagon Inj) 1 mg UD PRN SQ 10/05/17 23:30 11/04/17 23:29 Insulin Aspart (novoLOG ASPART) SLIDING SCALE ACHS SC 10/06/17 07:00 11/05/17 00:00 Sodium Chloride 1,000 ml @ 75 mls/hr [id number] IV 10/06/17 11:45 11/05/17 11:44 10/17/17 01:50 75 MLS/HR Albuterol/ Ipratropium (Duoneb) 3 ml QIDR PRN INH 10/09/17 12:00 11/04/17 19:59 Hydromorphone HCl (Dilaudid Inj) 1 mg Q4 PRN IV 10/09/17 18:00 10/23/17 17:59 10/17/17 04:53 1 MG Vancomycin HCl (Vancomycin Oral Soln) 250 mg Q6 PO 10/10/17 12:00 10/23/17 19:59 10/17/17 05:48 250 MG Raspberry (Raspberry Syrup 5ml Cup) 5 ml Q6 PO 10/10/17 12:00 10/24/17 11:59 10/17/17 05:48 5 ML Acetaminophen (Tylenol Tab) 650 mg Q4H PRN PO 10/15/17 01:45 11/14/17 01:44 10/17/17 05:55 650 MG Saccharomyces Boulardii (Florastor Cap) 250 mg DAILY PO 10/16/17 09:00 11/15/17 08:59 10/17/17 07:57 250 MG Piperacillin Sod/ Tazobactam Sod 3.375 gm/Dextrose 115 ml @ 28.75 mls/ hr Q8H IV 10/16/17 18:00 10/21/17 17:59 10/17/17 01:56 28.75 MLS/HR Miscellaneous Information (Consult) 1 ea UD PRN N/A 10/16/17 17:15 11/15/17 17:14 Objective Vital Signs Date Time Temp Pulse Resp B/P (MAP) Pulse Ox O2 Delivery O2 Flow Rate FiO2 10/17/17 07:33 37.9 109 16 119/70 (86) 98 Nasal Cannula 2.0 10/17/17 06:59 37.1 120 24 123/66 (85) 97 Room Air 10/16/17 23:30 95 Nasal Cannula 2.0 10/16/17 23:05 39.1 106 18 129/73 (91) 87 Room Air 10/16/17 20:40 37.8 110 16 142/73 (96) 93 Room Air 10/16/17 17:00 Room Air 10/16/17 15:29 38.8 111 18 148/55 (86) 93 Room Air 10/16/17 10:00 93 Room Air Physical Exam Comments: General Appearance: WD/WN, no apparent distress Eyes: normal inspection, EOMI, sclerae normal ENT: normal ENT inspection, hearing grossly normal, pharynx normal Neck: supple, no adenopathy, no JVD, trachea midline Respiratory/Chest: chest non-tender, rales at bases, no respiratory distress, no accessory muscle use Cardiovascular: no edema, no gallop, no JVD, no murmur, + tachycardia Abdomen: normal bowel sounds, non tender, soft, no organomegaly Extremities: normal range of motion, non-tender, normal inspection, no pedal edema, no calf tenderness, pelvis stable 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: 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-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 tested, no motor/sensory deficits, alert, normal mood/affect, oriented x 3 Skin: normal color, warm/dry, no rash Lymphatic: no adenopathy Laboratory Results Last 24 Hours Test 10/16/17 11:15 10/16/17 16:34 10/16/17 20:35 10/17/17 04:52 Bedside Glucose 104 mg/dl 99 mg/dl 124 mg/dl White Blood Count 7.08 K/uL Red Blood Count 3.31 M/uL Hemoglobin 8.7 g/dL Hematocrit 26.7 % Mean Corpuscular Volume 80.7 fL Mean Corpuscular Hemoglobin 26.3 pg Mean Corpuscular Hemoglobin Concent 32.6 g/dl Platelet Count 346 K/uL Mean Platelet Volume 9.1 fL Neutrophils (%) (Auto) 59.3 % Lymphocytes (%) (Auto) 24.0 % Monocytes (%) (Auto) 11.9 % Eosinophils (%) (Auto) 4.1 % Basophils (%) (Auto) 0.4 % Neutrophils # (Auto) 4.20 K/uL Lymphocytes # (Auto) 1.70 K/uL Monocytes # (Auto) 0.84 K/uL Eosinophils # (Auto) 0.29 K/uL Basophils # (Auto) 0.03 K/uL RDW Standard Deviation 49.2 fL RDW Coefficient of Variation 16.6 % Immature Granulocyte % (Auto) 0.3 % Immature Granulocyte # (Auto) 0.02 K/uL Red Blood Cell Morphology Unremarkable Sodium Level 137 mmol/L Potassium Level 3.5 mmol/L Chloride Level 108 mmol/L Carbon Dioxide Level 22 mmol/L Anion Gap 7.0 mmol/L Blood Urea Nitrogen 6 mg/dl Creatinine 1.55 mg/dl Est Creatinine Clear Calc Drug Dose 41.8 ml/min Estimated GFR () 50.4 Estimated GFR (Non- 43.5 BUN/Creatinine Ratio 4.2 Random Glucose 89 mg/dl Calcium Level 7.2 mg/dl Phosphorus Level 2.3 mg/dl Magnesium Level 1.3 mg/dl Total Bilirubin 0.7 mg/dl Aspartate Amino Transf (AST/SGOT) 35 U/L Alanine Aminotransferase (ALT/SGPT) 36 U/L Alkaline Phosphatase 246 U/L Total Protein 5.6 gm/dl Albumin 1.5 gm/dl Globulin 4.1 gm/dl Albumin/Globulin Ratio 0.4 Test 10/17/17 07:29 Bedside Glucose 114 mg/dl Assessment and Plan This is a 72 yo M with PMHx of hepatitis A, HTN, BPH, osteoarthritis, who was recently admitted to [facility] from 09/17-10/01 for urosepsis due to pansentivie Ecoli, acute renal failure and elevated LFTs. He was discharged on IV ceftriaxone for another 20 days for prostatitis. The patient reports that since being discharged he has felt increasingly generalized fatigue and weakness, and spiked a fever of 102 today. Patient notes he has had increasing shortness of breath with minimal activity. - Fever of unknown origin Patient continues tro be febrile. Was given antibiotic by night team. Initially plan was to hold antibiotic as per ID, however UA is abnormal and patient is becoming febrile again Cultures were ordered and it appears were done before antibiotic was regiven. Patient will be on Zosyn. No abd. pain, normal WBC. Not having diarrhea. No SOB or any symptoms that can point to a cause. Rheumatological workup was negative. - C diff colitis: Improving. continue vanco PO - Possible HCAP: evidence of ground glass opacities on CT chest, dyspnea, fever , however, WBC normal for several days persistent fevers despite antibiotics? likely C diff stopped levaquin. Restarted levaquin breathing comfortably today, no cough - Persistent fevers: likely from C diff, just diagnosed last night, look for fevers to resolve with Vanco PO sent out vasculitis work up, should be back early this week change to Acetaminophen 1000mg IV q8, less fevers today, look to resolve with Vanco PO difficult to work up vasculitis given his Cr of 1.79, could not perform CT angiography - Recent E coli UTI with prostatitis, recent bacteremia with severe sepsis check urine and blood cultures, no growth thus far after a few days May be source of fever given difficulty of treating prostatitis. May reconsult urology -Tachycardia Response from infection? will monitor. - Recent SONY, ATN: Cr has improved since last admission, down to 1.5, adequate UO - Transaminitis: LFT continue to trend down, supporting diagnosis of hepatitis due to sepsis from last admission serology studies were sent last admission, were normal bili is 1.1, alk phos 300's but AST/ALT minimally elevated Elevated ALK phos Unsure as to the cause. Neg. Bone scan last admission. Patient did have elevated PSA in last admission. May be cancer, but imaginng did not show metastasis. may reconsult urology. - Left leg pain: negative for DVT, says pain is chronic from an injury pain controlled -Left hip pain: imaging showed significant OA from previous admission. - Recent GI bleed with gastric ulcer: Hb going down but no signs of bleeding continue Protonix Hb stable HTN - Continue metoprolol tartrate 50 mg BID, hydralazine 50 mg TID, amlodipine 10 mg daily, asa 81 mg daily BPH - Hamm was changed during admission. -mAY RECONSULT UROLOGY while here.. - Continue flomax Hx hepatitis A - LFTs are improved compared to previous admission, trend daily x 3 more days. Osteoarthritis - Continue tylenol for pain in left hip DVT ppx: Teds, scd, heparin subq CODE STATUS: DNR Disposition: From [facility], will return once stable Discharge planning: other
--- NOTE | 2017-10-17 09:03 | DIAGNOSTIC IMAGING REPORT ---
SINGLE VIEW CHEST CLINICAL HISTORY: Hypoxia. Fever. FINDINGS: An AP, portable, upright chest radiograph is compared to study dated 10/16/2017 and correlated with chest CT dated 09/23/2017. The examination is degraded by portable technique and patient rotation. The cardiomediastinal heart is normal for projection. There are small pleural effusions. Multifocal patchy airspace consolidation is similar to yesterday. This is most confluence in the right upper and left lower lobes. No pneumothorax is seen. The skeletal structures are osteopenic. The bony thorax is grossly intact. IMPRESSION: 1. Multifocal airspace consolidation is similar in appearance to yesterday. 2. Small bilateral pleural effusions. Electronically signed by: Celestine Quiroz M.D. 10/17/2017 9:01 AM Dictated Date/Time: 10/17/2017 9:00 AM
--- NOTE | 2017-10-17 09:47 | Progress Note ---
Subjective Date of Service: Oct 17, 2017. Subjective Pt evaluation today including: conversation w/ patient Patient overnight had an episode of hypoxia. Patient reports having intermittent non productive cough. He also notes left hip pain but this has not worsened. Problem List Medical Problems: (1) Acute renal failure Status: Acute (2) Hyperbilirubinemia Status: Acute (3) Leukocytosis Status: Acute (4) UTI (urinary tract infection) Status: Acute Review of Systems Constitutional: + fever Eyes: No worsening of vision ENT: No hearing loss Respiratory: No cough Cardiac: No chest pain Abdomen: No pain Musculoskeletal: No joint pain Neurologic: No memory loss Psychiatric: No see HPI, No depression symptoms Endo: No fatigue Skin: No rash All Other Systems: Reviewed and Negative Medications Current Inpatient Medications Medications (Trade) Dose Ordered Sig/Candelaria Route Start Time Stop Time Status Last Admin Dose Admin Heparin Sodium (Porcine) (Heparin Sq 5000 Unit/0.5ml) 5,000 unit Q8 SQ 10/05/17 22:00 11/04/17 21:59 10/17/17 21:55 5,000 UNIT Ondansetron HCl (Zofran Inj) 4 mg Q6H PRN IV 10/05/17 15:15 11/04/17 15:14 Polyethylene (Miralax Powder Packet) 17 gm DAILY PRN PO 10/05/17 15:15 11/04/17 15:14 Amlodipine Besylate (Norvasc Tab) 10 mg DAILY PO 10/06/17 09:00 11/05/17 08:59 10/17/17 07:58 10 MG Aspirin (Aspirin Chew) 81 mg DAILY PO 10/06/17 09:00 11/05/17 08:59 10/17/17 08:11 81 MG Cetirizine HCl (zyrTEC TAB) 10 mg DAILY PO 10/06/17 09:00 11/05/17 08:59 10/17/17 08:00 10 MG Finasteride (Proscar Tab) 5 mg DAILY PO 10/06/17 09:00 11/05/17 08:59 10/17/17 07:59 5 MG Hydralazine HCl (Apresoline Tab) 50 mg TID PO 10/05/17 21:00 11/04/17 20:59 10/17/17 21:51 50 MG Lovastatin (Mevacor Tab) 20 mg HS PO 10/05/17 21:00 11/04/17 20:59 10/17/17 21:51 20 MG Metoprolol Tartrate (Lopressor Tab) 50 mg BID PO 10/05/17 21:00 11/04/17 20:59 10/17/17 21:51 50 MG Pantoprazole Sodium (Protonix Tab) 40 mg BID PO 10/05/17 21:00 11/04/17 20:59 10/17/17 21:51 40 MG Sodium Bicarbonate (Sodium Bicarbonate Tab) 1,300 mg BID PO 10/05/17 21:00 11/04/17 20:59 10/17/17 21:52 1,300 MG Tamsulosin HCl (Flomax Cap) 0.4 mg BID PO 10/05/17 21:00 11/04/17 20:59 10/17/17 21:52 0.4 MG Miscellaneous (Iv Fluids Completed) 1 ea PRN PRN N/A 10/05/17 15:45 10/05/18 15:44 Glucose (Glucose 40% Gel) 15-30 GRAMS 15 GRAMS... UD PRN PO 10/05/17 23:30 11/04/17 23:29 Glucose (Glucose Chew Tab) 4-8 Tablets 4 Tabl... UD PRN PO 10/05/17 23:30 11/04/17 23:29 Dextrose (Dextrose 50% 50ML Syringe) 25-50ML OF 50% DW IV FOR... UD PRN IV 10/05/17 23:30 11/04/17 23:29 Glucagon (Glucagon Inj) 1 mg UD PRN SQ 10/05/17 23:30 11/04/17 23:29 Insulin Aspart (novoLOG ASPART) SLIDING SCALE ACHS SC 10/06/17 07:00 11/05/17 00:00 10/17/17 21:54 2 UNITS Sodium Chloride 1,000 ml @ 75 mls/hr [id number] IV 10/06/17 11:45 11/05/17 11:44 10/17/17 21:23 75 MLS/HR Albuterol/ Ipratropium (Duoneb) 3 ml QIDR PRN INH 10/09/17 12:00 11/04/17 19:59 Hydromorphone HCl (Dilaudid Inj) 1 mg Q4 PRN IV 10/09/17 18:00 10/23/17 17:59 10/17/17 19:03 1 MG Vancomycin HCl (Vancomycin Oral Soln) 250 mg Q6 PO 10/10/17 12:00 10/23/17 19:59 10/17/17 18:59 250 MG Raspberry (Raspberry Syrup 5ml Cup) 5 ml Q6 PO 10/10/17 12:00 10/24/17 11:59 10/17/17 18:58 5 ML Acetaminophen (Tylenol Tab) 650 mg Q4H PRN PO 10/15/17 01:45 11/14/17 01:44 10/17/17 05:55 650 MG Saccharomyces Boulardii (Florastor Cap) 250 mg DAILY PO 10/16/17 09:00 11/15/17 08:59 10/17/17 07:57 250 MG Piperacillin Sod/ Tazobactam Sod 3.375 gm/Dextrose 115 ml @ 28.75 mls/ hr Q8H IV 10/16/17 18:00 10/21/17 17:59 10/17/17 18:58 28.75 MLS/HR Miscellaneous Information (Consult) 1 ea UD PRN N/A 10/16/17 17:15 11/15/17 17:14 Objective Vital Signs Date Time Temp Pulse Resp B/P (MAP) Pulse Ox O2 Delivery O2 Flow Rate FiO2 10/17/17 07:33 37.9 109 16 119/70 (86) 98 Nasal Cannula 2.0 10/17/17 06:59 37.1 120 24 123/66 (85) 97 Room Air 10/16/17 23:30 95 Nasal Cannula 2.0 10/16/17 23:05 39.1 106 18 129/73 (91) 87 Room Air 10/16/17 20:40 37.8 110 16 142/73 (96) 93 Room Air 10/16/17 17:00 Room Air 10/16/17 15:29 38.8 111 18 148/55 (86) 93 Room Air 10/16/17 10:00 93 Room Air Physical Exam Comments: General Appearance: WD/WN, no apparent distress Eyes: normal inspection, EOMI, sclerae normal ENT: normal ENT inspection, hearing grossly normal, pharynx normal Neck: supple, no adenopathy, no JVD, trachea midline Respiratory/Chest: chest non-tender, rales at bases, no respiratory distress, no accessory muscle use Cardiovascular: no edema, no gallop, no JVD, no murmur, + tachycardia Abdomen: normal bowel sounds, non tender, soft, no organomegaly Extremities: normal range of motion, non-tender, normal inspection, no pedal edema, no calf tenderness, pelvis stable 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: 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, no motor/sensory deficits, alert, normal mood/affect, oriented x 3 Skin: normal color, warm/dry, no rash Lymphatic: no adenopathy Laboratory Results Last 24 Hours Test 10/16/17 11:15 10/16/17 16:34 10/16/17 20:35 10/17/17 04:52 Bedside Glucose 104 mg/dl 99 mg/dl 124 mg/dl White Blood Count 7.08 K/uL Red Blood Count 3.31 M/uL Hemoglobin 8.7 g/dL Hematocrit 26.7 % Mean Corpuscular Volume 80.7 fL Mean Corpuscular Hemoglobin 26.3 pg Mean Corpuscular Hemoglobin Concent 32.6 g/dl Platelet Count 346 K/uL Mean Platelet Volume 9.1 fL Neutrophils (%) (Auto) 59.3 % Lymphocytes (%) (Auto) 24.0 % Monocytes (%) (Auto) 11.9 % Eosinophils (%) (Auto) 4.1 % Basophils (%) (Auto) 0.4 % Neutrophils # (Auto) 4.20 K/uL Lymphocytes # (Auto) 1.70 K/uL Monocytes # (Auto) 0.84 K/uL Eosinophils # (Auto) 0.29 K/uL Basophils # (Auto) 0.03 K/uL RDW Standard Deviation 49.2 fL RDW Coefficient of Variation 16.6 % Immature Granulocyte % (Auto) 0.3 % Immature Granulocyte # (Auto) 0.02 K/uL Red Blood Cell Morphology Unremarkable Sodium Level 137 mmol/L Potassium Level 3.5 mmol/L Chloride Level 108 mmol/L Carbon Dioxide Level 22 mmol/L Anion Gap 7.0 mmol/L Blood Urea Nitrogen 6 mg/dl Creatinine 1.55 mg/dl Est Creatinine Clear Calc Drug Dose 41.8 ml/min Estimated GFR () 50.4 Estimated GFR (Non- 43.5 BUN/Creatinine Ratio 4.2 Random Glucose 89 mg/dl Calcium Level 7.2 mg/dl Phosphorus Level 2.3 mg/dl Magnesium Level 1.3 mg/dl Total Bilirubin 0.7 mg/dl Aspartate Amino Transf (AST/SGOT) 35 U/L Alanine Aminotransferase (ALT/SGPT) 36 U/L Alkaline Phosphatase 246 U/L Total Protein 5.6 gm/dl Albumin 1.5 gm/dl Globulin 4.1 gm/dl Albumin/Globulin Ratio 0.4 Test 10/17/17 07:29 Bedside Glucose 114 mg/dl Assessment and Plan This is a 72 yo M with PMHx of hepatitis A, HTN, BPH, osteoarthritis, who was recently admitted to [facility] from 09/17-10/01 for urosepsis due to pansentivie Ecoli, acute renal failure and elevated LFTs. He was discharged on IV ceftriaxone for another 20 days for prostatitis. The patient reports that since being discharged he has felt increasingly generalized fatigue and weakness, and spiked a fever of 102 today. Patient notes he has had increasing shortness of breath with minimal activity. - Fever of unknown origin Patient continues to be febrile. Restarted on antibiotic Source can be UTI vs lung. D/W pulm and thoracic surgery. May consider bronch early next week, given CT scan results Initially plan was to hold antibiotic as per ID, however UA is abnormal and patient is becoming febrile again Cultures were ordered and it appears were done before antibiotic was regiven. Patient will be on Zosyn. No abd. pain, normal WBC. Not having diarrhea. Rheumatological workup was negative. - C diff colitis: Improving. continue vanco PO - Possible HCAP: evidence of ground glass opacities on CT chest, dyspnea, fever , however, WBC normal for several days persistent fevers despite antibiotics? likely C diff stopped levaquin. Restarted levaquin breathing comfortably today, no cough - Persistent fevers: likely from C diff, just diagnosed last night, look for fevers to resolve with Vanco PO sent out vasculitis work up, should be back early this week change to Acetaminophen 1000mg IV q8, less fevers today, look to resolve with Vanco PO - Recent E coli UTI with prostatitis, recent bacteremia with severe sepsis check urine and blood cultures, no growth thus far after a few days May be source of fever given difficulty of treating prostatitis. May reconsult urology removed vega today. failed voiding trial. replaced vega -Tachycardia Response from infection? will monitor. - Recent SONY, ATN: Cr has improved since last admission, down to 1.5, adequate UO - Transaminitis: LFT continue to trend down, supporting diagnosis of hepatitis due to sepsis from last admission serology studies were sent last admission, were normal bili is 1.1, alk phos 300's but AST/ALT minimally elevated Elevated ALK phos Unsure as to the cause. Neg. Bone scan last admission. Patient did have elevated PSA in last admission. May be cancer, but imaginng did not show metastasis. may reconsult urology. - Left leg pain: negative for DVT, says pain is chronic from an injury pain controlled -Left hip pain: imaging showed significant OA from previous admission. - Recent GI bleed with gastric ulcer: Hb going down but no signs of bleeding continue Protonix Hb stable HTN - Continue metoprolol tartrate 50 mg BID, hydralazine 50 mg TID, amlodipine 10 mg daily, asa 81 mg daily BPH - Vega was changed during admission and today after failing voiding trial -May RECONSULT UROLOGY while here.. - Continue flomax Hx hepatitis A - LFTs are improved compared to previous admission, trend daily x 3 more days. Osteoarthritis - Continue tylenol for pain in left hip DVT ppx: Teds, scd, heparin subq CODE STATUS: DNR Disposition: From [facility], will return once stable will order PT Spent 65 miutes in the management of his case today d/w specialist and updating patient. Discharge planning: other
--- NOTE | 2017-10-17 15:53 | SURGICAL CONSULTATION ---
DATE OF CONSULTATION: 10/17/2017 REASON FOR CONSULTATION: Evaluate for a left pleural effusion. HISTORY OF PRESENT ILLNESS: This 72-year-old incarcerated gentleman who has a significant past, especially recently. Essential hypertension, history of cigarette smoking, hepatitis A, prostatitis and severe osteoarthritis who was hospitalized for 2 weeks beginning in September of this year with an E. coli septicemia from apparently his prostate gland. He was quite sick, had acute kidney injury as well as elevated LFTs; however, he did well and eventually was able to be moved back to [facility]. However, once he got there, his antibiotics were stopped after 4 weeks and he had worsening fevers and chills, and his temperature went up to 102. He had fevers and shaking chills. I was asked to see him as a CT scan was performed to explain this fever and he had a small pleural effusion in the left. He had a CT scan done about 3 weeks ago which showed symptoms consistent with acute lung injury/ARDS and that has actually improved, although he still has a few areas of infiltrates which are a bit more heterogeneous than homogenous. PAST MEDICAL HISTORY: 1. Recent E. coli sepsis from apparently prostatitis. 2. Benign prostatic hypertrophy. 3. Hypertension. 4. History of cigarette smoking. 5. Diabetes mellitus. 6. Chronic Hamm catheter. 7. Anemia. 8. Questionable cholecystitis. PAST SURGICAL HISTORY: Esophagogastroduodenoscopy. MEDICATIONS: See chart. ALLERGIES: No known drug allergies. SOCIAL HISTORY: The patient is originally from [facility]. He was in the for 9 years serving to [id number]. Started smoking at age 14, but quit smoking at age 27. 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 He was actually working up to the time he was incarcerated. FAMILY MEDICAL HISTORY: Noncontributory. He is not really sure of his family's medical history. REVIEW OF SYSTEMS: The patient stopped ambulating several months ago. He has had severe osteoarthritis of his left hip and states that the pain is so bad he really cannot walk. He has essentially become bedbound. He denies any neurologic events such as amaurosis fugax or transient ischemic attack. He is on oxygen. Had Hamm catheter in for several weeks now. He states his appetite has been relatively poor. He does not exert himself, it was difficult to say if he has no shortness of breath, but he does get hypoxic without oxygen. He denies any obvious skin breakdown. He has had no obvious new focal deficits. He has had no acute visual or auditory loss. PHYSICAL EXAMINATION: GENERAL: This is an ill-appearing elderly -Filipino male who stands 5 feet 9 inches tall and weighs about 155 pounds. HEENT: Sclerae are muddy. He has bilateral arcus senilis. His pupils do react. He is edentulous. His tongue is midline. NECK: Thin, supple. I do not really detect any lymphadenopathy. LUNGS: He had decreased breath sounds in both bases, but no wheezing. He has few upper airway rhonchi. HEART: He has a regular rate and rhythm of his heart. ABDOMEN: Soft, really not very tender. EXTREMITIES: He has got atrophy of his lower legs but does have pulses. He has 1+ edema of his lower legs. He has no joint effusions per se. NEUROLOGIC: He can move his extremities, but they are quite weak. ASSESSMENT AND PLAN: Small left pleural effusion with some pulmonary infiltrates. At this point, the origin of his fever is unknown. I think it would still like to get an input from infectious disease as well as pulmonary to determine if we would do anything more aggressive. One option would be to try to tap the small amount of fluid, although it is really not very much. Another would be to do a thoracoscopy with removal of this fluid and biopsies. Another would be simply to follow him along conservatively him and I am probably going to recommend the latter.
--- NOTE | 2017-10-17 17:30 | PULMONARY CONSULTATION ---
DATE OF CONSULTATION: 10/17/2017 TIME: 4:25 p.m. HISTORY OF PRESENT ILLNESS: The patient was seen in room #253 bed #2. He is a 72-year-old -Haitian male who has had recurring fevers. His history is that he was hospitalized from September 17 until October 01 with some urosepsis. The E. coli was cultured and it was thought that he had prostatitis. There were several blood cultures positive and it took a while for them to change to negative. He subsequently was discharged and was getting continued antibiotics. During that hospital stay, he also had acute renal failure and some elevation of his liver function test. He was discharged on IV ceftriaxone which he was supposed to be on for 20 more days. The patient was brought back to the hospital on October 05 because of a fever of 102 degrees. He has had weakness and chills and some degree of abdominal pain. He has had generalized fatigue. His fevers have been persistent intermittently during this hospital stay. Ultimately, the antibiotics were stopped and then after about 2 days reportedly, the fevers returned. The patient tells me that he is short of breath, although apparently he does not ambulate at all. He has had a lot of problems with his left leg and left hip and I am not sure if that has something to do with it. Nursing staff told me when they try to get the patient up recently for transportation to the radiology department, he was extremely weak and could not tolerate anything. The patient states that he does have a cough. He could not tell me how long he had had it. He has not coughed up any phlegm. He says it occurs several times per day. The patient tells me that his PPD has been negative each time he has been tested at the detention where he is at. He states he has had negative HIV test as well. He has not coughed up any blood. He states he has chest pains occasionally. These would always be on the left side. Infectious disease has been following him. In spite of everything, the fevers have been quite persistent. Last night, the patient had some oxygen desaturation. This resulted in putting the patient on 2 liters of oxygen. He went down as low as 87%. The patient denies having lung troubles in the past. He was a smoker for 19 years and he smoked between 1/2 and 1 pack per day. I am not aware how long he has been incarcerated. PAST SURGICAL HISTORY: The patient states his only surgery was dental work. PAST MEDICAL HISTORY: 1. Anemia. 2. BPH. 3. Chronic left hip pain. 4. Diabetes. 5. Hepatitis A. 6. Hypertension. 7. Thrombocytopenia. SOCIAL HISTORY: As noted above. FAMILY HISTORY: Mother in her 30s from diabetes and alcohol problems. Father at age 80 of prostate cancer. CURRENT MEDICATIONS: 1. Zosyn which was just started, I believe today. 2. Saccharomyces 250 mg daily. 3. Tylenol p.r.n. 4. Vancomycin 250 mg q. 6 hours p.o. -- being given for C. diff which was diagnosed October 09. 5. Dilaudid p.r.n. 6. DuoNeb q.i.d. p.r.n. 7. Amlodipine 10 mg daily. 8. Aspirin 81 mg daily. 9. Cetirizine 10 mg daily. 10. Finasteride 5 mg daily. 11. Insulin coverage. 12. Heparin 5000 units subQ q. 8 hours. 13. Apresoline 50 mg t.i.d. 14. Lovastatin 20 mg at bedtime. 15. Metoprolol 50 mg b.i.d. 16. Pantoprazole 40 mg b.i.d. 17. Sodium bicarbonate b.i.d. 18. Tamsulosin 0.4 b.i.d. 19. Ondansetron 4 mg q. 6 p.r.n. 20. MiraLax p.r.n. REVIEW OF SYSTEMS: Negative except for the above-mentioned complaints. PHYSICAL EXAMINATION: GENERAL: The patient is a 72-year-old male who was cooperative, alert and oriented. He appeared in no distress. VITAL SIGNS: Current temperature is 37.5. Maximum temperature today is 37.9. Yesterday's max temperature 39.1. Maximum temperature on October 15, 38.6. On October 14, 37.5. On October 13, the maximum was 38.3. Thus, they have been waxing and waning. HEENT: Pupils were reactive. Arcus senilis was noted. Nares were clear. Mouth exam was unremarkable. NECK: Veins appear distended and pulsatile. HEART: Heart rate was 100 per minute. The rhythm was regular. I believe he has an S3 gallop, which would be mild. Blood pressure was 107/61. LUNGS: Lung escalona revealed rales bilaterally. I could not determine if these wet or dry in character. The respiratory rate was 20 breaths per minute. Saturation was 97% on 2 liters. ABDOMEN: He has very active bowel sounds. The abdomen was soft. There was no tenderness to palpation or masses. EXTREMITIES: Reveal +1 edema of both lower extremities. There was no cyanosis or clubbing. IMAGING DATA: CAT scan of the chest done today reveals pleural effusions that are relatively small bilaterally, although the right side is slightly larger than the left. Cardiomegaly was noted. The patient had some ground-glass changes in both lungs, but they have cleared somewhat compared with 09/23/2017. The abnormalities are most prominent in the right upper lobe. No adenopathy was noted. Renal ultrasound was normal. Dopplers of the lower extremities were negative. CAT scan of the abdomen and pelvis showed diverticulosis. Presacral fluid was noted. The patient did have an echocardiogram done during his prior hospital stay and it was done on September. This reported a normal left ventricular systolic function, but with grade 1 diastolic dysfunction. Moderate pulmonary hypertension was noted with pulmonary artery systolic pressures of 50-55. LABORATORY DATA: White count of 7.08. Hemoglobin 8.7. Platelets 346,000. Sed rate was 45, it was done on October 16. The prior sed rate on the 07 of October was 69. PTT done yesterday was 39.8 and INR was 1.2. Urinalysis yesterday shows +3 blood, large amount of leukocyte esterase, greater than 30 wbc's, greater than 30 rbc's, +1 bacteria. Flu test was negative. That was done back at the time of his second admission. IMPRESSION: 1. Fevers of uncertain origin. 2. Recent Escherichia coli sepsis and prostatitis. 3. Small bilateral pleural effusions. 4. Pulmonary hypertension. 5. Anemia. 6. Clostridium difficile infection. COMMENTS: The patient has recurring fevers. The question at hand is whether an acute pulmonary problem is causing this. I think it is unlikely. He does have effusions which are more likely related to volume changes. He has a gallop. He did have an echocardiogram last time that was actually quite good, but he was mildly tachycardic and had a subtle gallop. He has some subpleural reticulation which is fairly diffuse. This may reflect the onset of interstitial lung disease. There are ground-glass changes seen which could be infectious related or edema related. They have improved somewhat, by report. Overall, I think the lung is less likely to be the source of his fevers. One could consider doing bronchoscopy with lavage just to obtain some specimens. I am not sure that would be giving an answer; however. I think I would hold on that for a little bit right now. I would not think that an open lung biopsy would be optimum simply because it seems like the source of the fevers may be elsewhere. One could consider a repeat echocardiogram just to make sure he does not have endocarditis. Tomorrow, the pulmonary team will again review the situation and see if they have any other suggestions. Case was discussed with Dr. Murillo.
[2017-10-17] MEDS: LOVASTATIN 20 MG TAB PO SCH (21:51)
[2017-10-18] MEDS: RASPBERRY SYRUP 5 ML UDP PO SCH ×5 (00:56→23:48)
[2017-10-18] MEDS: HYDROmorphone INJ 1 MG/ML SYR IV PRN ×4 (00:56→17:53)
[2017-10-18] MEDS: VANCOMYCIN HCL 250 MG/5 ML SOLN PO SCH ×5 (00:56→23:47)
[2017-10-18] MEDS: PIPERACILL/TAZOBAC IV 3.375 GM in DEXTROSE 5% 100ML 100 ML IV SCH ×3 (02:29→17:52)
[2017-10-18] MEDS ORDERED: NURSING DECISION MEDICATION ORDER SCH (04:30)
[2017-10-18] MEDS: HEPARIN SOD 5000 UNIT/0.5 ML CARP SQ SCH ×2 (05:43→14:06)
[2017-10-18 07:25] VITALS: BP 110/54; PULSE 86; TEMP 36.9; O2SAT 98
--- NOTE | 2017-10-18 08:55 | Progress Note ---
Subjective Date of Service: Oct 18, 2017. Subjective Pt evaluation today including: conversation w/ patient, conversation w/ pmo consultant Pt states his breathing is better but he has not been OOB due to still feeling so weak. No SOB at rest though. His diarrhea is also improving since starting vanco. Has been eating well. Pt denies fever, SOB, chest pain, abd pain, n/v, LE pain or swelling. Problem List Medical Problems: (1) Acute renal failure Status: Acute (2) Hyperbilirubinemia Status: Acute (3) Leukocytosis Status: Acute (4) UTI (urinary tract infection) Status: Acute Review of Systems All Other Systems: Reviewed and Negative Objective Vital Signs Date Time Temp Pulse Resp B/P (MAP) Pulse Ox O2 Delivery O2 Flow Rate FiO2 10/18/17 07:25 36.9 86 16 110/54 (72) 98 2.0 10/18/17 00:45 Nasal Cannula 2.0 10/18/17 00:00 Nasal Cannula 2.0 10/17/17 23:15 37.1 82 18 118/64 (82) 98 Nasal Cannula 2.0 10/17/17 21:46 94 118/64 (82) 10/17/17 16:03 37.5 93 20 107/61 (76) 97 Nasal Cannula 2.0 10/17/17 16:00 Nasal Cannula 1.5 10/17/17 13:45 37.4 94 122/66 (84) 96 Nasal Cannula 1.5 10/17/17 09:00 98 Nasal Cannula 2.0 Physical Exam General Appearance: WD/WN, no apparent distress Eyes: normal inspection, sclerae normal Respiratory/Chest: normal breath sounds, no respiratory distress Cardiovascular: regular rate, rhythm, no edema Abdomen: non tender, soft Extremities: non-tender, no pedal edema 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: alert, oriented x 3 Skin: normal color, warm/dry Laboratory Results Last 24 Hours Test 10/17/17 10:02 10/17/17 11:22 10/17/17 16:35 10/17/17 20:14 Procalcitonin 0.33 ng/ml Bedside Glucose 137 mg/dl 162 mg/dl 171 mg/dl Test 10/18/17 07:26 Bedside Glucose 124 mg/dl Assessment and Plan This is a 72 yo M with PMHx of hepatitis A, HTN, BPH, osteoarthritis, who was recently admitted to [facility] from 09/17-10/01 for urosepsis due to pansentivie Ecoli, acute renal failure and elevated LFTs. He was discharged on IV ceftriaxone for another 20 days for prostatitis. The patient reported that since being discharged he felt increasingly generalized fatigue and weakness, and spiked a fever of 102 on day of admission. Patient noted he has had increasing shortness of breath with minimal activity. - Fever of unknown origin, possibly related to cdiff Possible bronch tomorrow given CT scan results Continue Zosyn for now Rheumatological workup was negative CT surg was considering tap vs thorascopy, however not certain if this is needed given source for fever - C diff colitis: Improving. continue vanco PO - Possible HCAP: evidence of ground glass opacities on CT chest, dyspnea, fever , however, WBC normal for several days persistent fevers despite antibiotics? likely C diff - Persistent fevers: likely from C diff, look for fevers to resolve with Vanco PO sent out vasculitis work up, should be back early this week change to Acetaminophen 1000mg IV q8, less fevers today, look to resolve with Vanco PO - Recent E coli UTI with prostatitis, recent bacteremia with severe sepsis check urine and blood cultures, no growth thus far after a few days May be source of fever given difficulty of treating prostatitis. May reconsult urology removed vega today. failed voiding trial. replaced vega - Recent GI bleed with gastric ulcer: Hb has been trending down, but no s/sx of bleeding Hemoccult pending Iron, B12, folate WNL continue Protonix BID Hb on d/c 10/01 was 9.1 s/p 2 units PRBC during that admission EGD on that admission showed a non-bleeding ulcer -Tachycardia Response from infection, resolved - Recent SONY, ATN: Cr has improved since last admission, down to 1.5, adequate UO - Transaminitis: LFT continue to trend down, supporting diagnosis of hepatitis due to sepsis from last admission serology studies were sent last admission, were normal bili is 1.1, alk phos 300's but AST/ALT minimally elevated Elevated ALK phos Unsure as to the cause. Neg. Bone scan last admission. Patient did have elevated PSA in last admission. May be cancer, but imaging did not show metastasis. may reconsult urology. - Left leg pain: negative for DVT, says pain is chronic from an injury pain controlled -Left hip pain: imaging showed significant OA from previous admission. HTN - Continue metoprolol tartrate 50 mg BID, hydralazine 50 mg TID, amlodipine 10 mg daily, asa 81 mg daily BPH - Vega was changed during admission and today after failing voiding trial -May need to RECONSULT UROLOGY while here.. - Continue flomax Hx hepatitis A - LFTs are improved compared to previous admission, trend daily x 3 more days. Osteoarthritis - Continue tylenol for pain in left hip DVT ppx: Teds, scd, heparin subq CODE STATUS: DNR [facility], will return once stable will order PT Discharge planning: other
[2017-10-18] MEDS: METOPROLOL TARTRATE 50 MG TAB PO SCH ×2 (09:00→20:31)
[2017-10-18] MEDS: CETIRIZINE HCL 10 MG TAB PO SCH (09:15)
[2017-10-18] MEDS: TAMSULOSIN HCL 0.4 MG CAP PO SCH ×2 (09:16→20:37)
[2017-10-18] MEDS: AMLODIPINE BESYLATE 5 MG TAB PO SCH (09:16)
[2017-10-18] MEDS: SACCHAROMYCES BOUL (FLORASTOR) 250 MG CAP PO SCH (09:16)
[2017-10-18] MEDS: FINASTERIDE 5 MG TAB PO SCH (09:17)
[2017-10-18] MEDS: SODIUM BICARBONATE 650 MG TAB PO SCH ×2 (09:18→20:35)
[2017-10-18] MEDS: PANTOprazole SOD 40 MG TAB PO SCH ×2 (09:20→20:37)
[2017-10-18] MEDS: SODIUM CHLORIDE 0.9% 1000ML 1,000 ML IV SCH ×2 (09:21→20:34)
[2017-10-18] MEDS: INSULIN ASPART 100 UNITS/ML 3 ML PEN SC SCH ×4 (09:22→20:29)
[2017-10-18] MEDS: ASPIRIN 81 MG CHEW PO SCH (10:47)
[2017-10-18 13:30] VITALS: BP 110/54
--- NOTE | 2017-10-18 14:44 | PULMONARY PROGRESS NOTE ---
DATE: 10/18/2017 SUBJECTIVE: The patient continues to feel poorly, stating he is dyspneic and week. He has had a nonproductive cough. He was seen yesterday by Dr. Green. He has had is a history of recurrent fevers. He was hospitalized for 2 weeks in early September with urosepsis secondary to E. coli and was placed on a prolonged course of IV Rocephin (see sensitivity report). He has recurred with fevers and was brought in to the hospital had a negative PPD as well as negative HIV serology in the past. He does have a strong smoking history, having quit in the late 1970s. He was hypoxic on admission and has been treated in the past for his E. coli sepsis and prostatitis. He has apparently pulmonary hypertension and a changing CT scan pattern with the most recent one done yesterday and reviewed showing right greater than left pleural effusions, increased from 09/23/2017 with ground-glass changes throughout both lungs, most confluent in the right upper lobe was somewhat cleared from 09/23/2017. No obvious mediastinal adenopathy. Because of his persistent symptoms and radiographic appearance, scheduled for bronchoscopic evaluation. He also is quite anemic with an H&H of 8.7 and 26.7 and a creatinine of 1.5. His albumin is depressed at 1.5 and an alkaline phosphatase is elevated. Calcium is inappropriately low for the level of hypoalbuminemia. Laboratory serology for pulmonary vasculitis have so far been negative as have antibodies to both type A and type B influenza antigen. PHYSICAL EXAMINATION: VITAL SIGNS: Stable. Temperature 36.9, pulse 86 and regular, respiratory rate 16, blood pressure 110/54, O2 sat 98% on 2 liters. SKIN: Without lesion. HEENT: Atraumatic, normocephalic, PERRLA, EOMI. Conjunctivae pale. Sclerae nonicteric. Fundi poorly visualized. NECK: Neck veins are not distended at 45 degrees. There is no obvious adenopathy in the supra or infraclavicular areas. LUNGS: Distant P&A with rales at the right base. CARDIAC: Regular rhythm. I do not appreciate a gallop. ABDOMEN: Soft, scaphoid. EXTREMITIES: No significant pedal edema, clubbing or cyanosis. NEUROLOGIC: Intact. No lateralizing signs. LABORATORY DATA: On 09/17/2017, the patient's H&H was 11 and 30 with hypochromic microcytic indices. OVERALL ASSESSMENT: A 72-year-old black male incarcerated with weight loss, dyspnea, weakness, sepsis secondary to Escherichia coli bacteremia, presumably from urinary tract infection and prostatitis and with severe anemia with hypochromic microcytic indices. No doubt there is some degree of hemodilution to explain the drop in H&H, but suspect a gastrointestinal bleed and requirement for workup. Would consider bronchoscopic evaluation but feels his H&H and oxygen-carrying capacity need to be improved, possibly with transfusion and would obtain a serum iron, ferritin, TIBC level and start patient on IV Venofer if appropriate. We will discuss with the hospitalist service.
[2017-10-18 15:26] VITALS: BP 118/63; PULSE 94; TEMP 37.1; O2SAT 97
[2017-10-18] MEDS: LOVASTATIN 20 MG TAB PO SCH (20:37)
[2017-10-19] VITALS (10 sets, daily range): BP systolic 117–172; BP diastolic 53–78; PULSE 76–118; TEMP 37.1–38.8; O2SAT 90–98
[2017-10-19] MEDS: PIPERACILL/TAZOBAC IV 3.375 GM in DEXTROSE 5% 100ML 100 ML IV SCH ×3 (01:47→17:54)
[2017-10-19] MEDS: HYDROmorphone INJ 1 MG/ML SYR IV PRN ×4 (01:48→23:48)
[2017-10-19] MEDS: VANCOMYCIN HCL 250 MG/5 ML SOLN PO SCH ×4 (05:46→23:43)
[2017-10-19] MEDS: RASPBERRY SYRUP 5 ML UDP PO SCH ×4 (05:46→23:42)
[2017-10-19] MEDS: INSULIN ASPART 100 UNITS/ML 3 ML PEN SC SCH ×4 (07:32→21:00)
[2017-10-19] MEDS: TAMSULOSIN HCL 0.4 MG CAP PO SCH ×2 (07:50→21:56)
[2017-10-19] MEDS: SACCHAROMYCES BOUL (FLORASTOR) 250 MG CAP PO SCH (07:50)
[2017-10-19] MEDS: CETIRIZINE HCL 10 MG TAB PO SCH (07:50)
[2017-10-19] MEDS: ASPIRIN 81 MG CHEW PO SCH (07:50)
[2017-10-19] MEDS: ACETAMINOPHEN 325 MG TAB PO PRN ×2 (07:50→22:08)
[2017-10-19] MEDS: SODIUM BICARBONATE 650 MG TAB PO SCH ×2 (07:50→21:57)
[2017-10-19] MEDS: PANTOprazole SOD 40 MG TAB PO SCH ×2 (07:51→21:55)
[2017-10-19] MEDS: AMLODIPINE BESYLATE 5 MG TAB PO SCH (07:51)
[2017-10-19] MEDS: METOPROLOL TARTRATE 50 MG TAB PO SCH ×2 (07:51→21:55)
[2017-10-19] MEDS: FINASTERIDE 5 MG TAB PO SCH (07:51)
--- NOTE | 2017-10-19 08:43 | History & Physical Bridge Note ---
H&P Re-Evaluation Bridge Note: I have examined the patient, reviewed the History & Physical and in the interval since the performance of the History & Physical I have noted the following changes of clinical significance: No changes noted
--- NOTE | 2017-10-19 08:43 | Pre Sedation Assessment ---
Pre Sedation Assessment General Date of Sedation: Oct 19, 2017. Vital Signs Past 12 Hours Date Time Temp Pulse Resp B/P (MAP) Pulse Ox O2 Delivery O2 Flow Rate FiO2 10/19/17 07:38 37.9 118 16 172/78 (109) 93 10/19/17 00:00 37.8 84 18 117/53 (74) 98 2.0 10/18/17 23:59 Room Air Pre-Sedation Airway Assessment Smoking Status: Never Smoker Short Thick Neck: No Oral Cavity: Dental Abnormalities Mallampati Classification: Class II ASA Classification: Class III NPO Status Date of Last Intake of Fluids: Oct 19, 2017 Time of Last Intake of Fluids: 0745 Date of Last Intake of Solids: Oct 18, 2017 Time of Last Intake of Solids: 2100 Procedure Planning Contraindications for Sedation: None Current Medications Reviewed: Yes Notes The planned sedation has been discussed with the patient. Informed Consent was obtained. I have identified the patient, determined the appropriateness of sedation and have assessed the patient immediately prior to the procedure. All medicine(s) and interventions are by my order.
--- NOTE | 2017-10-19 09:02 | Progress Note ---
Progress Note Date of Service Oct 19, 2017. Progress Note Mr. Emmanuel was seen today. He is going for bronchoscopy by Dr. Pozo. That should give us some information. In addition, I have asked urology to see this patient as it is possible that his prostate is the reason for his low-grade fevers. We will continue to follow.
[2017-10-19] MEDS ORDERED: OPTIRAY 320 IV PRN (09:15)
--- NOTE | 2017-10-19 09:38 | Urology Consultation ---
History General Date of Service: Oct 19, 2017. Chief Complaint: fever Primary Care Physician: Jamarcus MURPHY Pt seen a urologist before?: Yes (Dr. Prabhakar, Dr. Toribio) If yes, why?: elevated PSA, prostate nodule History of Present Illness 72 yo male prisoner known to our practice for hx of elevated PSA and prostate nodule. Recommend prostate bx last fall with Dr. Prabhakar, but the pt has failed to f/u since. He was last seen by our service in September for elevated PSA, urosepsis, and UR. PSA noted to be 74.6 at the time. Bone negative for evidence of bony mets. It was recommended at that time that he be treated for acute prostatitis, and vega catheter remain in place. The pt was to f/u as an outpatient with Dr. Prabhakar for prostate bx once infection cleared. He was discharged on 10/01 on 20 days of IV ceftriaxone. F/u has not yet been set up by the [facility]. Pt returns to [facility] with worsening fevers on 10/05. On admission his PICC line was noted to be infiltrated and needing replaced. has been consulted for prostatitis as possible source. The pt currently has a vega in place draining clear, yellow urine. Blood and urine cultures are negative. He is positive for c-diff. He is pending a bronchoscopy today to r/o pulmonary cause of fevers. Laboratory Last 24 Hours Test 10/18/17 11:39 10/18/17 14:33 10/18/17 19:43 10/19/17 07:12 Bedside Glucose 102 mg/dl 136 mg/dl 87 mg/dl Iron Level 52 mcg/dl Total Iron Binding Capacity 109 mcg/dl Ferritin 765.3 ng/ml Vitamin B12 Level 1178 pg/mL Folate 5.99 ng/mL Test 10/19/17 08:06 Problem List Medical Problems: (1) Acute renal failure Status: Acute (2) Hyperbilirubinemia Status: Acute (3) Leukocytosis Status: Acute (4) UTI (urinary tract infection) Status: Acute Past History BPH, diabetes, hepatitis, hypertension, other (anemia, thrombocytopenia, elevated PSA ) Past Surgical History: no surgical history Family History prostate cancer Social History Hx Tobacco Use In Past Year?: No Smoking: non-smoker Alcohol: no current use Drug use: none 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) Immunizations History of Influenza Vaccine: Unknown History of Tetanus Vaccine?: Unknown History of Pneumococcal: Unknown History of Hepatitis B Vaccine: Unknown History of MDRO No Allergies Coded Allergies: No Known Allergies (Unverified , 09/17/17) Medications Home Medications: Home Meds and Scripts Medications Dose Route/Sig Max Daily Dose Days Date Category Aspirin 81 Low Dose (Aspirin) 81 Mg Chw 1 Tab PO DAILY 10/05/17 Reported Sodium Bicarbonate (Sodium Bicarbonate (Antacid)) 650 Mg Tab 2 Tab PO BID 30 10/05/17 Reported Protonix (Pantoprazole Sodium) 40 Mg Tab 40 Mg PO BID 10/05/17 Reported Apresoline (Hydralazine Hcl) 50 Mg Tab 1 Tab PO TID 30 10/05/17 Reported Lopressor (Metoprolol Tartrate) 25 Mg Tab 50 Mg PO BID 10/05/17 Reported Rocephin (Ceftriaxone Sodium) 1 Gm Inj 1 Gm IV DAILY 20 10/01/17 Rx Flomax (Tamsulosin Hcl) 0.4 Mg Cap 0.4 Mg PO BID 09/17/17 Reported Proscar (Finasteride) 5 Mg Tab 5 Mg PO DAILY 09/17/17 Reported Mevacor (Lovastatin) 20 Mg Tab 20 Mg PO HS 09/17/17 Reported Tylenol (Acetaminophen) 500 Mg Tab 500 Mg PO TID 09/17/17 Reported Zyrtec (Cetirizine HCl) 10 Mg Tab 10 Mg PO DAILY 09/17/17 Reported Norvasc (Amlodipine Besylate) 10 Mg Tab 10 Mg PO DAILY 09/17/17 Reported Inpatient Medications: Current Inpatient Medications Medications (Trade) Dose Ordered Sig/Candelaria Route Start Time Stop Time Status Last Admin Dose Admin Ondansetron HCl (Zofran Inj) 4 mg Q6H PRN IV 10/05/17 15:15 11/04/17 15:14 Polyethylene (Miralax Powder Packet) 17 gm DAILY PRN PO 10/05/17 15:15 11/04/17 15:14 Amlodipine Besylate (Norvasc Tab) 10 mg DAILY PO 10/06/17 09:00 11/05/17 08:59 10/19/17 07:51 10 MG Aspirin (Aspirin Chew) 81 mg DAILY PO 10/06/17 09:00 11/05/17 08:59 10/19/17 07:50 81 MG Cetirizine HCl (zyrTEC TAB) 10 mg DAILY PO 10/06/17 09:00 11/05/17 08:59 10/19/17 07:50 10 MG Finasteride (Proscar Tab) 5 mg DAILY PO 10/06/17 09:00 11/05/17 08:59 10/19/17 07:51 5 MG Hydralazine HCl (Apresoline Tab) 50 mg TID PO 10/05/17 21:00 11/04/17 20:59 10/19/17 07:51 50 MG Lovastatin (Mevacor Tab) 20 mg HS PO 10/05/17 21:00 11/04/17 20:59 10/18/17 20:37 20 MG Metoprolol Tartrate (Lopressor Tab) 50 mg BID PO 10/05/17 21:00 11/04/17 20:59 10/19/17 07:51 50 MG Pantoprazole Sodium (Protonix Tab) 40 mg BID PO 10/05/17 21:00 11/04/17 20:59 10/19/17 07:51 40 MG Sodium Bicarbonate (Sodium Bicarbonate Tab) 1,300 mg BID PO 10/05/17 21:00 11/04/17 20:59 10/19/17 07:50 1,300 MG Tamsulosin HCl (Flomax Cap) 0.4 mg BID PO 10/05/17 21:00 11/04/17 20:59 10/19/17 07:50 0.4 MG Miscellaneous (Iv Fluids Completed) 1 ea PRN PRN N/A 10/05/17 15:45 10/05/18 15:44 Glucose (Glucose 40% Gel) 15-30 GRAMS 15 GRAMS... UD PRN PO 10/05/17 23:30 11/04/17 23:29 Glucose (Glucose Chew Tab) 4-8 Tablets 4 Tabl... UD PRN PO 10/05/17 23:30 11/04/17 23:29 Dextrose (Dextrose 50% 50ML Syringe) 25-50ML OF 50% DW IV FOR... UD PRN IV 10/05/17 23:30 11/04/17 23:29 Glucagon (Glucagon Inj) 1 mg UD PRN SQ 10/05/17 23:30 11/04/17 23:29 Insulin Aspart (novoLOG ASPART) SLIDING SCALE ACHS SC 2/21/18 07:00 11/05/17 00:00 10/17/17 21:54 2 UNITS Sodium Chloride 1,000 ml @ 75 mls/hr [id number] IV 10/06/17 11:45 11/05/17 11:44 10/18/17 20:34 75 MLS/HR Albuterol/ Ipratropium (Duoneb) 3 ml QIDR PRN INH 10/09/17 12:00 11/04/17 19:59 Hydromorphone HCl (Dilaudid Inj) 1 mg Q4 PRN IV 10/09/17 18:00 10/23/17 17:59 10/19/17 01:48 1 MG Vancomycin HCl (Vancomycin Oral Soln) 250 mg Q6 PO 10/10/17 12:00 10/23/17 19:59 10/19/17 05:46 250 MG Raspberry (Raspberry Syrup 5ml Cup) 5 ml Q6 PO 10/10/17 12:00 10/24/17 11:59 10/19/17 05:46 5 ML Acetaminophen (Tylenol Tab) 650 mg Q4H PRN PO 10/15/17 01:45 11/14/17 01:44 10/19/17 07:50 650 MG Saccharomyces Boulardii (Florastor Cap) 250 mg DAILY PO 10/16/17 09:00 11/15/17 08:59 10/19/17 07:50 250 MG Piperacillin Sod/ Tazobactam Sod 3.375 gm/Dextrose 115 ml @ 28.75 mls/ hr Q8H IV 10/16/17 18:00 10/21/17 17:59 10/19/17 01:47 28.75 MLS/HR Miscellaneous Information (Consult) 1 ea UD PRN N/A 10/16/17 17:15 11/15/17 17:14 Review of Systems Review of Systems Constitutional: No fever, No chills Eyes: No double vision Neurological: No dizzy Endocrine: No excessive thirst Gastrointestinal: No abdominal pain, No nausea, No vomiting Cardiovascular: No chest pain Respiratory: No shortness of breath Skin: No rash Musculoskeletal: No back pain Male : No blood in urine Physical Exam Vital Signs: Vital Signs Past 12 Hours Date Time Temp Pulse Resp B/P (MAP) Pulse Ox O2 Delivery O2 Flow Rate FiO2 10/19/17 07:38 37.9 118 16 172/78 (109) 93 10/19/17 00:00 37.8 84 18 117/53 (74) 98 2.0 10/18/17 23:59 Room Air Physical Exam: General Appearance: no apparent distress Eyes: bilateral eyes normal inspection ENT: hearing grossly normal Neck: no JVD Respiratory/Chest: no respiratory distress, no accessory muscle use Cardiovascular: no JVD Extremities: normal inspection 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: alert, normal mood/affect, oriented x 3 Skin: normal color Assessment & Plan Assessment & Plan A/P: Prostatitis, elevated PSA, prostate nodule Would consider prostatitis as possible source for persistent fevers although etiology remains unclear. Discussed with Dr. Prabhakar this morning, and will order a CT to check for possible prostatic abscess as source. Continue vega catheter. Continue Flomax. Continue to recommend outpatient prostate biopsy once infection has resolved. Thanks for the consult. Will continue to follow along with primary service.
--- NOTE | 2017-10-19 09:51 | [facility] Operative Report ---
Operative Report Operative Date Oct 19, 2017. Pre-Operative Diagnosis BRONCHOPNEUMONIA Post-Operative Diagnosis BRONCHOPNEUMONIA Procedure(s) Performed BRONCHOSCOPY Surgeon DR HOPKINS Estimated Blood Loss 0 Findings Chronic mucopurulent bronchitis Specimens RIGHT LUNG AND LEFT LUNG WASHING I attest to the content of the Intraoperative Record and any orders documented therein. Any exceptions are noted below.
--- NOTE | 2017-10-19 09:52 | Post Sedation Assessment ---
Post Sedation Assessment General Date of Sedation Oct 19, 2017. Vital Signs: Vital Signs Past 12 Hours Date Time Temp Pulse Resp B/P (MAP) Pulse Ox O2 Delivery O2 Flow Rate FiO2 10/19/17 09:40 82 21 127/73 100 Oxymask 6 10/19/17 09:35 82 14 130/71 100 Oxymask 6 10/19/17 09:30 78 19 130/73 100 Oxymask 6 10/19/17 09:25 81 18 122/70 100 Oxymask 6 10/19/17 08:00 Nasal Cannula 2.0 10/19/17 07:38 37.9 118 16 172/78 (109) 93 10/19/17 00:00 37.8 84 18 117/53 (74) 98 2.0 10/18/17 23:59 Room Air Post Procedure Recovery Score Activity: (2) Moves 4 extremities * Respiration: (2) Deep breath/cough Circulation: (2) +/-20% PreAnes Value Consciousness: (1) Arouseable (by name) Oxygen Saturation: (1) O2 needed for >90% Discharge Sedation Level of Care: Fast Track Phase II Post Sedation Plan On clinical assessment, the patient appears to have tolerated the sedation without complications. Patient is recovering as anticipated. Patient will continue to be monitored by nursing and may be discharged when sedation discharge criteria are met per below protocol. Upon Completions of procedure and additional 15 minutes continue every 5 minute vital signs and the P.A.R. score; then discharge to a Phase I or Fast Track to Phase II per the following guidelines: * Discharge Patient to appropriate Phase II area if PAR is 8 or greater or return to pre- procedure baseline. The post - procedure orders will be as directed. * If PAR score is less than 8 or not return to pre-procedure baseline then patient will follow Phase I monitoring till PAR is reached for Phase II. The Phase I may be done in procedure room or may call to secure a Phase I area. * If naloxone or flumazenil are used for reversal, hold in Phase I for an additional 60 -120 minutes before discharge to Phase II. Please call the Sedation Physician to re-evaluate and complete post-note for discharge to Phase II area. Do NOT discharge from procedure sedation or Phase 1 until post- sedation evaluation note is complete by procedure /sedation MD Sedation Discharge Instructions to be given to the patient at discharge to home.
[2017-10-19] MEDS ORDERED: LIDOCAINE 4% INH SOLN 4 ML BTL NAE ONE (09:54)
[2017-10-19] MEDS ORDERED: LEVALBUTEROL 1.25MG/3ML NEB INH ONE (09:54)
[2017-10-19] MEDS ORDERED: OXYMETAZOLINE HCL 0.05% NA SPR 15 ML BTL ONE (09:54)
[2017-10-19] MEDS ORDERED: FENTANYL CITRATE INJ 50 MCG/1 ML 2 ML VIAL IV ONE (09:54)
[2017-10-19] MEDS ORDERED: MIDAZOLAM HCL 5 MG/ML 1 ML VIAL IV ONE (09:54)
[2017-10-19] MEDS ORDERED: LIDOCAINE HCL 2% LOCAL 50ML VIAL INSTIL ONE (09:54)
[2017-10-19 11:16] LABS: CALCIUM 7.4 mg/dl (8.5-10.1); CREATININE 1.51 mg/dl (0.60-1.40); POTASSIUM 3.3 mmol/L (3.5-5.1)
[2017-10-19] MEDS: SODIUM CHLORIDE 0.9% 1000ML 1,000 ML IV SCH (11:56)
--- NOTE | 2017-10-19 12:22 | OPERATIVE REPORT ---
DATE OF OPERATION: 10/19/2017 PROCEDURE: Fiberoptic bronchoscopy with BAL. INDICATIONS: Persistent respiratory symptoms with ground-glass opacities and low grade fever and bilateral pleural effusions. ANESTHESIA PREOPERATIVELY: None. ANESTHESIA DURING PROCEDURE: 5 mg IV Versed, 50 mcg IV fentanyl, 20 mL of 2% Xylocaine spray above and below the cords, 4% viscous Xylocaine intranasally. PROCEDURE: Fiberoptic bronchoscope was inserted into the left naris with minimal difficulty and passed to the level of the true vocal cords. The cords appear to approximate normally with phonation without evidence of lesions or paralysis. The area was anesthetized with 2% Xylocaine spray and the scope was then introduced in the right trachea and right and left tracheobronchial tree. The rafal was sharp. The right mainstem bronchus was explored initially and a copious amount of mucopurulent secretion was lavaged from the right tracheobronchial tree. The right upper lobe, the apical posterior, anterior segments, bronchus intermedius, right middle lobe and the medial lateral segments and all basilar segments right lower lobe were found to be free of endobronchial lesions. Bronchial crypts and clefts were visible suggesting chronic bronchitis. No endobronchial lesions were seen. Left tracheobronchial tree showed no endobronchial lesions. Left upper lobe, lingual subdivision and left lower lobe were free of endobronchial lesions down to subsegmental bronchi. Copious amount of mucopurulent secretion was lavaged left lower lobe to clear. The procedure was terminated, the patient was given a nebulizer treatment with Xopenex 1.25 mg and the patient was transferred to the medical treatment unit hemodynamically stable with no signs of respiratory compromise. Will await microbiological and cytologic examination of the bronchial washings. I attest to the content of the Intraoperative Record and any orders documented therein. Any exception s are noted below.
--- NOTE | 2017-10-19 13:40 | DIAGNOSTIC IMAGING REPORT ---
CT ABD/PELVIS COMBO CLINICAL HISTORY: Abdominal pain, fever, possible pancreatic abscess. COMPARISON STUDY: October 05, 2017 TECHNIQUE: Unenhanced images were obtained to the abdomen and pelvis. The patient was then scanned in a dynamic helical fashion during intravenous administration of 94 cc of Optiray 320. A dose lowering technique was utilized adhering to the principles of ALARA. CT DOSE: 780.71 mGy.cm FINDINGS: Lower chest: There is respiratory motion artifact. There are bilateral pleural effusions with bibasal or airspace opacities. Liver: The contrast-enhanced liver is normal in size, contour, and attenuation. There is no intrahepatic biliary ductal dilatation. The hepatic veins and portal veins are patent. Gallbladder: Unremarkable. Spleen: Normal in size and attenuation. Pancreas: No focal pancreatic masses are visualized. There are no peripancreatic fluid collections. A 3 mm hypodensity with the pancreatic tail is of fat attenuation likely represents fat interdigitation. Adrenal glands: Unremarkable. Kidneys: No renal calculi are visualized. There are several subcentimeter left renal hypodensities. These are too small to characterize but likely represent cysts. There is a 14 mm subcapsular left renal fluid collection. Bowel: There are no transition zones indicate bowel obstruction. There is colonic diverticulosis. No acute diverticulitis is demonstrated. The appendix appears normal. Peritoneum: There is minimal ascites. There is persistent presacral fluid/edema. No free air is visualized. Vasculature: The abdominal aorta is normal in course and caliber. Adenopathy: There is stable borderline enlarged left external iliac artery lymph node Pelvic viscera: There is an indwelling Hamm catheter. Skeletal structures: There are advanced arthritic changes within the left hip. There is mild anasarca. IMPRESSION: 1. Bilateral pleural effusions with bibasal airspace opacities 2. No peripancreatic fluid collections are visualized 3. No evidence of bowel obstruction. No evidence of free air 4. Normal appendix 5. Diverticulosis. No evidence of acute diverticulitis 6. Minimal ascites 7. 14 mm subcapsular left renal fluid collection Electronically signed by: Anthony Sanchez M.D. 10/19/2017 1:38 PM Dictated Date/Time: 10/19/2017 1:29 PM
--- NOTE | 2017-10-19 16:51 | Progress Note ---
Subjective Date of Service: Oct 19, 2017. Subjective Pt evaluation today including: conversation w/ patient Pt feels his breathing is better s/p bronch. Still very weak. Has been NPO today for testing. Pt denies fever, new chest pain, abd pain, n/v/c/d, LE pain or swelling. Problem List Medical Problems: (1) Acute renal failure Status: Acute (2) Hyperbilirubinemia Status: Acute (3) Leukocytosis Status: Acute (4) UTI (urinary tract infection) Status: Acute Review of Systems All Other Systems: Reviewed and Negative Objective Vital Signs Date Time Temp Pulse Resp B/P (MAP) Pulse Ox O2 Delivery O2 Flow Rate FiO2 10/19/17 15:49 37.6 87 16 126/65 (85) 95 10/19/17 11:34 37.2 76 16 143/66 (91) 90 10/19/17 11:01 37.2 80 16 135/65 (88) 92 Room Air 10/19/17 10:30 37.4 83 18 129/69 (89) 91 10/19/17 10:00 37.1 82 18 125/62 (83) 92 Room Air 10/19/17 09:55 85 19 119/63 99 Nasal Cannula 2 10/19/17 09:54 Oxymask 10/19/17 09:50 83 21 109/75 99 Nasal Cannula 2 10/19/17 09:45 84 21 120/64 100 Nasal Cannula 2 10/19/17 09:40 82 21 127/73 100 Oxymask 6 10/19/17 09:35 82 14 130/71 100 Oxymask 6 10/19/17 09:30 78 19 130/73 100 Oxymask 6 10/19/17 09:25 81 18 122/70 100 Oxymask 6 10/19/17 08:00 Nasal Cannula 2.0 10/19/17 07:38 37.9 118 16 172/78 (109) 93 10/19/17 00:00 37.8 84 18 117/53 (74) 98 2.0 10/18/17 23:59 Room Air 10/18/17 20:30 Room Air Physical Exam Comments: General Appearance: WD/WN, no apparent distress Eyes: normal inspection, sclerae normal Respiratory/Chest: normal breath sounds, no respiratory distress Cardiovascular: regular rate, rhythm, no edema Abdomen: non tender, soft Extremities: non-tender, no pedal edema 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: alert, oriented x 3 Skin: normal color, warm/dry Laboratory Results Last 24 Hours Test 10/18/17 19:43 10/19/17 07:12 10/19/17 09:42 10/19/17 10:24 Bedside Glucose 136 mg/dl 87 mg/dl Sodium Level 143 mmol/L Potassium Level 3.3 mmol/L Chloride Level 111 mmol/L Carbon Dioxide Level 23 mmol/L Anion Gap 9.0 mmol/L Blood Urea Nitrogen 9 mg/dl Creatinine 1.51 mg/dl Est Creatinine Clear Calc Drug Dose 42.9 ml/min Estimated GFR () 52.0 Estimated GFR (Non- 44.9 BUN/Creatinine Ratio 6.2 Random Glucose 94 mg/dl Calcium Level 7.4 mg/dl Test 10/19/17 11:22 Bedside Glucose 104 mg/dl Assessment and Plan This is a 72 yo M with PMHx of hepatitis A, HTN, BPH, osteoarthritis, who was recently admitted to [facility] from 09/17-10/01 for urosepsis due to pansentivie Ecoli, acute renal failure and elevated LFTs. He was discharged on IV ceftriaxone for another 20 days for prostatitis. The patient reported that since being discharged he felt increasingly generalized fatigue and weakness, and spiked a fever of 102 on day of admission. Patient noted he has had increasing shortness of breath with minimal activity. - Fever of unknown origin, possibly related to cdiff Bronch 10/19 noted for chronic mucopurulent bronchitis Continue Zosyn for now Rheumatological workup was negative CT surg was considering tap vs thorascopy, however not certain if this is needed given source for fever - C diff colitis: Improving on vanco PO for cdiff - Possible HCAP: evidence of ground glass opacities on CT chest, dyspnea, fever , however, WBC normal for several days persistent fevers despite antibiotics? likely C diff - Recent E coli UTI with prostatitis, recent bacteremia with severe sepsis check urine and blood cultures, no growth thus far after a few days May be source of fever given difficulty of treating prostatitis. Urology planning for CT AP to look for prostatic abscess, t/c outpt bx - Recent GI bleed with gastric ulcer: Hb has been trending down, but no s/sx of bleeding Hemoccult pending Iron, B12, folate WNL continue Protonix BID Hb on d/c 10/01 was 9.1 s/p 2 units PRBC during that admission EGD on that admission showed a non-bleeding ulcer -Tachycardia Response from infection, resolved - Recent SONY, ATN: Cr has improved since last admission, down to 1.5, adequate UO - Transaminitis: LFT continue to trend down, supporting diagnosis of hepatitis due to sepsis from last admission serology studies were sent last admission, were normal bili is 1.1, alk phos 300's but AST/ALT minimally elevated Elevated ALK phos Unsure as to the cause. Neg. Bone scan last admission. Patient did have elevated PSA in last admission. May be cancer, but imaging did not show metastasis. - Left leg pain: negative for DVT, says pain is chronic from an injury pain controlled -Left hip pain: imaging showed significant OA from previous admission. HTN - Continue metoprolol tartrate 50 mg BID, hydralazine 50 mg TID, amlodipine 10 mg daily, asa 81 mg daily BPH Urology reconsulted - Continue flomax and vega Hx hepatitis A - LFTs are improved compared to previous admission, trend daily x 3 more days. Osteoarthritis - Continue tylenol for pain in left hip DVT ppx: Teds, scd, heparin subq CODE STATUS: DNR [facility], will return once stable PT Discharge planning: other
[2017-10-19] MEDS: LOVASTATIN 20 MG TAB PO SCH (21:58)
[2017-10-20] MEDS: PIPERACILL/TAZOBAC IV 3.375 GM in DEXTROSE 5% 100ML 100 ML IV SCH ×3 (01:57→18:19)
[2017-10-20] MEDS: SODIUM CHLORIDE 0.9% 1000ML 1,000 ML IV SCH ×2 (01:57→15:29)
[2017-10-20] MEDS: ACETAMINOPHEN 325 MG TAB PO PRN ×2 (01:58→15:29)
[2017-10-20] MEDS: VANCOMYCIN HCL 250 MG/5 ML SOLN PO SCH ×3 (05:32→18:19)
[2017-10-20] MEDS: RASPBERRY SYRUP 5 ML UDP PO SCH ×3 (05:32→18:19)
[2017-10-20 05:52] VITALS: TEMP 37.5
[2017-10-20] MEDS: INSULIN ASPART 100 UNITS/ML 3 ML PEN SC SCH ×4 (06:30→21:50)
[2017-10-20 07:17] VITALS: BP 137/82; PULSE 84; TEMP 37.4; O2SAT 94
[2017-10-20] MEDS: HYDROmorphone INJ 1 MG/ML SYR IV PRN ×3 (07:35→19:57)
[2017-10-20] MEDS: CETIRIZINE HCL 10 MG TAB PO SCH (07:35)
[2017-10-20] MEDS: PANTOprazole SOD 40 MG TAB PO SCH ×2 (07:35→20:09)
[2017-10-20] MEDS: SACCHAROMYCES BOUL (FLORASTOR) 250 MG CAP PO SCH (07:35)
[2017-10-20] MEDS: TAMSULOSIN HCL 0.4 MG CAP PO SCH ×2 (07:36→20:09)
[2017-10-20] MEDS: FINASTERIDE 5 MG TAB PO SCH (07:36)
[2017-10-20] MEDS: METOPROLOL TARTRATE 50 MG TAB PO SCH ×2 (07:36→20:09)
[2017-10-20] MEDS: AMLODIPINE BESYLATE 5 MG TAB PO SCH (07:36)
[2017-10-20] MEDS: SODIUM BICARBONATE 650 MG TAB PO SCH ×2 (07:37→20:10)
[2017-10-20] MEDS: ASPIRIN 81 MG CHEW PO SCH (07:45)
--- NOTE | 2017-10-20 09:49 | Progress Note ---
Subjective Date of Service: Oct 20, 2017. Subjective Pt evaluation today including: conversation w/ patient, chart review, lab review Voiding: vega catheter in place (patent, draining clear, yellow urine ) Pt reports he feels run down this morning. Vega remains in place draining clear, yellow urine. Still spiking fevers last evening. Results from bronchial washings pending. CT scan reviewed with Dr. Prabhakar this morning. No evidence for prostatic abscess. Problem List Medical Problems: (1) Acute renal failure Status: Acute (2) Hyperbilirubinemia Status: Acute (3) Leukocytosis Status: Acute (4) UTI (urinary tract infection) Status: Acute Review of Systems Constitutional: + fatigue, + problem reported (pt states he feels run down), No fever, No chills Respiratory: No shortness of breath Cardiac: No chest pain Abdomen: No pain, No nausea, No vomiting Male : No hematuria Heme: No abnormal bleeding/bruising Objective Vital Signs Date Time Temp Pulse Resp B/P (MAP) Pulse Ox O2 Delivery O2 Flow Rate FiO2 10/20/17 07:17 37.4 84 18 137/82 (100) 94 Room Air 10/20/17 05:52 37.5 10/19/17 23:59 Room Air 10/19/17 23:34 38.7 85 16 132/70 (90) 94 Room Air 10/19/17 22:08 38.8 10/19/17 16:03 95 Room Air 10/19/17 15:49 37.6 87 16 126/65 (85) 95 10/19/17 11:34 37.2 76 16 143/66 (91) 90 10/19/17 11:01 37.2 80 16 135/65 (88) 92 Room Air 10/19/17 10:30 37.4 83 18 129/69 (89) 91 10/19/17 10:00 37.1 82 18 125/62 (83) 92 Room Air 10/19/17 09:55 85 19 119/63 99 Nasal Cannula 2 10/19/17 09:54 Oxymask 10/19/17 09:50 83 21 109/75 99 Nasal Cannula 2 10/19/17 09:45 84 21 120/64 100 Nasal Cannula 2 10/19/17 09:40 82 21 127/73 100 Oxymask 6 3/6/18 09:35 82 14 130/71 100 Oxymask 6 10/19/17 09:30 78 19 130/73 100 Oxymask 6 10/19/17 09:25 81 18 122/70 100 Oxymask 6 Physical Exam General Appearance: no apparent distress Eyes: normal inspection ENT: hearing grossly normal Neck: no JVD Respiratory/Chest: no respiratory distress, no accessory muscle use Cardiovascular: no JVD Extremities: normal inspection 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: alert, normal mood/affect, oriented x 3 Skin: normal color Laboratory Results Last 24 Hours Test 10/19/17 09:42 10/19/17 10:24 10/19/17 11:22 10/19/17 16:43 Sodium Level 143 mmol/L Potassium Level 3.3 mmol/L Chloride Level 111 mmol/L Carbon Dioxide Level 23 mmol/L Anion Gap 9.0 mmol/L Blood Urea Nitrogen 9 mg/dl Creatinine 1.51 mg/dl Est Creatinine Clear Calc Drug Dose 42.9 ml/min Estimated GFR () 52.0 Estimated GFR (Non- 44.9 BUN/Creatinine Ratio 6.2 Random Glucose 94 mg/dl Calcium Level 7.4 mg/dl Bedside Glucose 104 mg/dl 98 mg/dl Test 10/19/17 20:46 10/20/17 07:30 10/20/17 08:52 Bedside Glucose 97 mg/dl 91 mg/dl Assessment and Plan A/P: Fevers, UR, elevated PSA, recent Urosepsis and c-diff AFVSS. No evidence for prostatitic abscess on CT. Management of c-diff per primary service. Recent blood and urine cultures negative. It is noted that the pt did not finish his course of treatment for prostatitis. Would consider treating if fevers persists based on ID recommendations. As for the pt's elevated PSA and hx of prostate nodule, it is recommended that he have a prostate biopsy. Will repeat a PSA this morning, and consult oncology as we have not yet been able to obtain tissue for bx d/t recent infection, coordination with the long-term, and the pt previously not wanting a biopsy. He is now ready to have the biopsy when able. Will need to wait until infection adequately clears for prostate biopsy as well as to coordinate with the long-term and ID given his recent urosepsis and c-diff. Will attempt to coordinate. Pt noted to have a negative bone scan for metastatic disease in September. Discharge planning: other
--- NOTE | 2017-10-20 11:17 | PULMONARY PROGRESS NOTE ---
DATE: 10/20/2017 SUBJECTIVE: The patient feels weak, tired. He 24 hours ago had a temp elevation which is unclear where this is coming from. Bronchial washings so far growing out normal jenna and the secretions did not look infected. He does have bilateral pleural effusions, which I think is from fluid overload. I do not think it is empyema. We would order a 2D echo to make sure we are not missing valvular vegetations that could be seen with endocarditis. The reasons for his anemia are not clear whether this represents anemia of chronic disease or iron deficiency. Serum ferritin is elevated and would suggest the former. We will follow along with you and wait for final ID on the bronchial washings.
--- NOTE | 2017-10-20 12:27 | Progress Note ---
Subjective Date of Service: Oct 20, 2017. Subjective Pt evaluation today including: conversation w/ patient, conversation w/ construction consultant Ongoing fatigue that is no difference. Breathing is better s/p bronch. Tolerating PO. Ongoing loose stools improving. Pt denies fever, chest pain, abd pain, n/v, LE pain or swelling. Problem List Medical Problems: (1) Acute renal failure Status: Acute (2) Hyperbilirubinemia Status: Acute (3) Leukocytosis Status: Acute (4) UTI (urinary tract infection) Status: Acute Review of Systems All Other Systems: Reviewed and Negative Objective Vital Signs Date Time Temp Pulse Resp B/P (MAP) Pulse Ox O2 Delivery O2 Flow Rate FiO2 10/20/17 08:00 Nasal Cannula 2.0 10/20/17 07:17 37.4 84 18 137/82 (100) 94 Room Air 10/20/17 05:52 37.5 10/19/17 23:59 Room Air 10/19/17 23:34 38.7 85 16 132/70 (90) 94 Room Air 10/19/17 22:08 38.8 10/19/17 16:03 95 Room Air 10/19/17 15:49 37.6 87 16 126/65 (85) 95 Physical Exam Comments: General Appearance: WD/WN, no apparent distress Eyes: normal inspection, sclerae normal Respiratory/Chest: normal breath sounds, no respiratory distress Cardiovascular: regular rate, rhythm, no edema Abdomen: non tender, soft Extremities: non-tender, no pedal edema 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: alert, oriented x 3 Skin: normal color, warm/dry Laboratory Results Last 24 Hours Test 10/19/17 16:43 10/19/17 20:46 10/20/17 07:30 10/20/17 08:52 Bedside Glucose 98 mg/dl 97 mg/dl 91 mg/dl Prostate Specific Antigen 1.490 ng/ml Test 10/20/17 11:22 Bedside Glucose 92 mg/dl Assessment and Plan This is a 72 yo M with PMHx of hepatitis A, HTN, BPH, osteoarthritis, who was recently admitted to [facility] from 09/17-10/01 for urosepsis due to pansentivie Ecoli, acute renal failure and elevated LFTs. He was discharged on IV ceftriaxone for another 20 days for prostatitis. The patient reported that since being discharged he felt increasingly generalized fatigue and weakness, and spiked a fever of 102 on day of admission. Patient noted he has had increasing shortness of breath with minimal activity. - Fever of unknown origin, possibly related to cdiff however continues to spike temps despite several days of vanco Bronch / noted for chronic mucopurulent bronchitis but no acute infections, path pending Continue Zosyn for now Rheumatological workup was negative CT surg was considering tap vs thorascopy, however not certain if this is needed given source for fever - C diff colitis: Vanco PO for cdiff HIV, mono, other infectious work-up neg on last admission ECHO on last admission neg - Possible HCAP: evidence of ground glass opacities on CT chest, dyspnea, fever , however, WBC normal for several days persistent fevers despite antibiotics? - Recent E coli UTI with prostatitis, recent bacteremia with severe sepsis check urine and blood cultures, no growth thus far after a few days May be source of fever given difficulty of treating prostatitis. CT AP to look for prostatic abscess was neg, urology is planning for bx when able Onc does not want to start neoplastic options until there is tissue dx - Recent GI bleed with gastric ulcer: Hb has been trending down, but no s/sx of bleeding Hemoccult pending Iron, B12, folate WNL continue Protonix BID Hb on d/c 10/01 was 9.1 s/p 2 units PRBC during that admission EGD on that admission showed a non-bleeding ulcer -Tachycardia Response from infection, resolved - Recent SONY, ATN: Cr has improved since last admission, down to 1.5, adequate UOP - Transaminitis: LFT continue to trend down, supporting diagnosis of hepatitis due to sepsis from last admission serology studies were sent last admission, were normal bili is 1.1, alk phos 300's but AST/ALT minimally elevated Elevated ALK phos Unsure as to the cause. Neg. Bone scan last admission. Patient did have elevated PSA in last admission. May be cancer, but imaging did not show metastasis. - Left leg pain: negative for DVT, says pain is chronic from an injury pain controlled -Left hip pain: imaging showed significant OA from previous admission. HTN - Continue metoprolol tartrate 50 mg BID, hydralazine 50 mg TID, amlodipine 10 mg daily, asa 81 mg daily BPH Urology reconsulted - Continue flomax and vega Hx hepatitis A - LFTs are improved compared to previous admission, trend daily x 3 more days. Osteoarthritis - Continue tylenol for pain in left hip DVT ppx: Teds, scd, heparin subq CODE STATUS: DNR [facility], will return once stable PT Discharge planning: other
--- NOTE | 2017-10-20 14:25 | Progress Note ---
Subjective Date of Service: Oct 20, 2017. Subjective remains with intermittent fever. s/p bronch yesterday, routine culture with nml jenna, afb and fungal stains negative. pathology negative. on zosyn emperically , repeat blood cultures negative. also on po vanco for c diff. Problem List Medical Problems: (1) Acute renal failure Status: Acute (2) Hyperbilirubinemia Status: Acute (3) Leukocytosis Status: Acute (4) UTI (urinary tract infection) Status: Acute Objective Vital Signs Date Time Temp Pulse Resp B/P (MAP) Pulse Ox O2 Delivery O2 Flow Rate FiO2 10/20/17 08:00 Nasal Cannula 2.0 10/20/17 07:17 37.4 84 18 137/82 (100) 94 Room Air 10/20/17 05:52 37.5 10/19/17 23:59 Room Air 10/19/17 23:34 38.7 85 16 132/70 (90) 94 Room Air 10/19/17 22:08 38.8 10/19/17 16:03 95 Room Air 10/19/17 15:49 37.6 87 16 126/65 (85) 95 Laboratory Results Item Value Date Time C.difficile Toxin B Gene (PCR) - Final Complete 10/09/17 1750 Stool Positive for C. difficile toxin B gene Blood Culture - Preliminary Resulted 10/16/17 0430 Blood NO GROWTH TO DATE. Blood Culture - Preliminary Resulted 10/16/17 0430 Blood NO GROWTH TO DATE. Urine Culture - Final Complete 10/16/17 0545 Urine , Clean Catch NO GROWTH - LESS THAN 1,000 COLONIES/ML Last 24 Hours Test 10/19/17 16:43 10/19/17 20:46 10/20/17 07:30 10/20/17 08:52 Bedside Glucose 98 mg/dl 97 mg/dl 91 mg/dl Prostate Specific Antigen 1.490 ng/ml Test 10/20/17 11:22 Bedside Glucose 92 mg/dl Assessment and Plan (1) C. difficile colitis Assessment & Plan: Continue vancomycin at current dose. I would suggest a 21 day course of oral vancomycin to treat C diff. (2) Fever Discharge planning: other Problem Qualifiers (1) Fever: Fever type: unspecified Qualified Codes: R50.9 - Fever, unspecified
[2017-10-20 15:18] VITALS: BP 133/91; PULSE 104; TEMP 37.9; O2SAT 92
--- NOTE | 2017-10-20 15:40 | ECHOCARDIOGRAM REPORT ---
*NOTICE TO RECEIVING DEMOCRAT AGENCY This information is strictly Confidential and protected under [place] law. [place] law prohibits you from making any further disclosure of this information unless further disclosure is expressly permitted by the written consent of the person to whom it pertains or is authorized by law. A general authorization for the release of medical or other information is not sufficient for this purpose. Hospital accepts no responsibility if the information is made available to any other person, INCLUDING THE PATIENT. Interpretation Summary * Name: DARRELL FERRARA [id number] Study Date: 10/20/2017 01:27 PM BP: 137/82 mmHg * Patient Location: .[id number]\2 HR: 84 * : 1945 (M/d/yyy) Gender: Male Height: 69 in * Age: 72 yrs Ethnicity: AA Weight: 168 lb * Ordering Physician: Rodger Pozo * Referring Physician: Jamarcus MURPHY * Performed By: Kandace Kerr RDCS * * Reason For Study: R/O valvular vegetations * BSA: 1.9 m2 * -- Conclusions -- * Left ventricular systolic function is normal. * No regional wall motion abnormalities noted. * Ejection Fraction = 55-60%. * There is mild mitral regurgitation. * There is mild tricuspid regurgitation. * No obvious valvular vegetation. Procedure Details * A two-dimensional transthoracic echocardiogram, with color flow Doppler was performed. Left Ventricle * The left ventricle is normal in size. * There is borderline concentric left ventricular hypertrophy. * Left ventricular systolic function is normal. * Ejection Fraction = 55-60%. * No regional wall motion abnormalities noted. Right Ventricle * The right ventricle is normal in size and function. Atria * The left atrial size is normal. * Right atrial size is normal. * There is no evidence of atrial septal defect, but resolution does not allow assessment for a patent foramen ovale. Mitral Valve * The mitral valve anatomy is normal. * There is no vegetation seen on the mitral valve. * There is no mitral valve stenosis. * There is mild mitral regurgitation. Tricuspid Valve * The tricuspid valve anatomy is normal. * There is no tricuspid valve vegetation. * There is no tricuspid stenosis. * There is mild tricuspid regurgitation. Aortic Valve * The aortic valve is normal in structure and function. * There is no aortic valvular vegetation. * Aortic stenosis is absent. * There is no significant aortic regurgitation. Pulmonic Valve * The pulmonary valve is not well seen, but the Doppler examination is normal without significant regurgitation or stenosis. Great Vessels * The aortic root is normal size. * The pulmonary is not well visualized. Pericardium/Pleural * There is no pericardial effusion. Great Vessels * IVC not well visualized.
--- NOTE | 2017-10-20 16:00 | Oncology Consultation ---
Oncology/Heme Consultation Date of Consultation: Oct 20, 2017. Attending Physician: Janette Luevano DO Reason for Consultation: Mr. Emmanuel is a 72-year-old gentleman with a history of a prostatic nodule and a previously elevated PSA History of Present Illness Mr. Emmanuel is a 72-year-old inmate that had a recent history of urosepsis treated with IV antibiotics. This is in the early part of September. Since that time he has had recurrent fevers with fatigue and weakness and diarrhea. He states that the diarrhea has been going on for several weeks. C. difficile toxin was found and the patient is currently on vancomycin. During his previous evaluation of PSA was significantly elevated at 74. 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 In reviewing urology's consultation attempts at having of prosthetic nodule biopsied have not occurred due to logistics I believe with present. In any case we are asked to comment today concerning the possibility of carrying out with some sort of therapy for presumptive diagnosis of underlying prostate cancer. The patient denies weight loss. He denies new shortness of breath or chest pain. He states that he has had fatigue for quite some time and again the diarrhea has been ongoing for a few months. He also has chronic left hip pain. He states he is really not able to move his left leg much at all. We will review x-rays that have been done concerning this. 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) Allergies Coded Allergies: No Known Allergies (Unverified , 09/17/17) Home Medications Scheduled Acetaminophen (Tylenol), 500 MG PO TID Amlodipine (Norvasc), 10 MG PO DAILY Aspirin (Aspirin 81 Low Dose), 1 TAB PO DAILY Ceftriaxone Sodium (Rocephin), 1 GM IV DAILY Cetirizine (Zyrtec), 10 MG PO DAILY Finasteride (Proscar), 5 MG PO DAILY Hydralazine Hcl (Apresoline), 1 TAB PO TID Lovastatin (Mevacor), 20 MG PO HS Metoprolol Tartrate (Lopressor) (Lopressor), 50 MG PO BID Pantoprazole (Protonix), 40 MG PO BID Sodium Bicarbonate (Antacid) (Sodium Bicarbonate), 2 TAB PO BID Tamsulosin Hcl (Flomax), 0.4 MG PO BID Current Inpatient Medications Current Inpatient Medications Medications (Trade) Dose Ordered Sig/Candelaria Route Start Time Stop Time Status Last Admin Dose Admin Ondansetron HCl (Zofran Inj) 4 mg Q6H PRN IV 10/05/17 15:15 11/04/17 15:14 Polyethylene (Miralax Powder Packet) 17 gm DAILY PRN PO 10/05/17 15:15 11/04/17 15:14 Amlodipine Besylate (Norvasc Tab) 10 mg DAILY PO 10/06/17 09:00 11/05/17 08:59 10/20/17 07:36 10 MG Aspirin (Aspirin Chew) 81 mg DAILY PO 10/06/17 09:00 11/05/17 08:59 10/20/17 07:45 81 MG Cetirizine HCl (zyrTEC TAB) 10 mg DAILY PO 10/06/17 09:00 11/05/17 08:59 10/20/17 07:35 10 MG Finasteride (Proscar Tab) 5 mg DAILY PO 10/06/17 09:00 11/05/17 08:59 10/20/17 07:36 5 MG Hydralazine HCl (Apresoline Tab) 50 mg TID PO 10/05/17 21:00 11/04/17 20:59 10/20/17 13:39 50 MG Lovastatin (Mevacor Tab) 20 mg HS PO 10/05/17 21:00 11/04/17 20:59 10/19/17 21:58 20 MG Metoprolol Tartrate (Lopressor Tab) 50 mg BID PO 10/05/17 21:00 11/04/17 20:59 10/20/17 07:36 50 MG Pantoprazole Sodium (Protonix Tab) 40 mg BID PO 10/05/17 21:00 11/04/17 20:59 10/20/17 07:35 40 MG Sodium Bicarbonate (Sodium Bicarbonate Tab) 1,300 mg BID PO 10/05/17 21:00 11/04/17 20:59 10/20/17 07:37 1,300 MG Tamsulosin HCl (Flomax Cap) 0.4 mg BID PO 10/05/17 21:00 11/04/17 20:59 10/20/17 07:36 0.4 MG Miscellaneous (Iv Fluids Completed) 1 ea PRN PRN N/A 10/05/17 15:45 10/05/18 15:44 Glucose (Glucose 40% Gel) 15-30 GRAMS 15 GRAMS... UD PRN PO 10/05/17 23:30 11/04/17 23:29 Glucose (Glucose Chew Tab) 4-8 Tablets 4 Tabl... UD PRN PO 10/05/17 23:30 11/04/17 23:29 Dextrose (Dextrose 50% 50ML Syringe) 25-50ML OF 50% DW IV FOR... UD PRN IV 10/05/17 23:30 11/04/17 23:29 Glucagon (Glucagon Inj) 1 mg UD PRN SQ 10/05/17 23:30 11/04/17 23:29 Insulin Aspart (novoLOG ASPART) SLIDING SCALE ACHS SC 10/06/17 07:00 11/05/17 00:00 10/17/17 21:54 2 UNITS Sodium Chloride 1,000 ml @ 75 mls/hr [id number] IV 10/06/17 11:45 11/05/17 11:44 10/20/17 15:29 75 MLS/HR Albuterol/ Ipratropium (Duoneb) 3 ml QIDR PRN INH 10/09/17 12:00 11/04/17 19:59 Hydromorphone HCl (Dilaudid Inj) 1 mg Q4 PRN IV 10/09/17 18:00 10/23/17 17:59 10/20/17 13:39 1 MG Vancomycin HCl (Vancomycin Oral Soln) 250 mg Q6 PO 10/10/17 12:00 10/23/17 19:59 10/20/17 12:48 250 MG Raspberry (Raspberry Syrup 5ml Cup) 5 ml Q6 PO 10/10/17 12:00 10/24/17 11:59 10/20/17 12:47 5 ML Acetaminophen (Tylenol Tab) 650 mg Q4H PRN PO 10/15/17 01:45 11/14/17 01:44 3/7/18 15:29 650 MG Saccharomyces Boulardii (Florastor Cap) 250 mg DAILY PO 10/16/17 09:00 11/15/17 08:59 10/20/17 07:35 250 MG Piperacillin Sod/ Tazobactam Sod 3.375 gm/Dextrose 115 ml @ 28.75 mls/ hr Q8H IV 10/16/17 18:00 10/21/17 17:59 10/20/17 10:15 28.75 MLS/HR Miscellaneous Information (Consult) 1 ea UD PRN N/A 10/16/17 17:15 11/15/17 17:14 Ioversol (Optiray 320) 100 ml UD PRN IV 10/19/17 09:15 10/23/17 09:14 Review of Systems Constitutional: Negative for weight loss or night sweats Eyes: Negative for event change of vision ENT: Negative for epistaxis, nasal discharge, sore throat, or deafness Cardiovascular: Negative for chest pain, palpitations, dizziness, diaphoresis Respiratory: Negative for new shortness of breath,hemoptysis, or purulent cough Gastrointestinal: Negative for diarrhea, hematemesis, melena, nausea, vomiting , or dyspepsia Integumentary (skin): Negative for rash or jaundice discoloration Genitourinary: Negative for urinary frequency, hematuria, or dysuria Neurological: Negative for weakness, seizure activity, headache, or dizziness Lymphatic/Hematologic: Negative for petechiae, bleeding or new adenopathy Musculoskeletal: He has chronic left hip discomfort Allergic/Immunologic: Negative for unusual rash or pruritis. Physical Exam Date Time Temp Pulse Resp B/P (MAP) Pulse Ox O2 Delivery O2 Flow Rate FiO2 10/20/17 15:18 37.9 104 18 133/91 (105) 92 Room Air 10/20/17 08:00 Nasal Cannula 2.0 10/20/17 07:17 37.4 84 18 137/82 (100) 94 Room Air 10/20/17 05:52 37.5 10/19/17 23:59 Room Air 10/19/17 23:34 38.7 85 16 132/70 (90) 94 Room Air 10/19/17 22:08 38.8 10/19/17 16:03 95 Room Air Mr. Dc is a pleasant 72-year-old gentleman. Constitutional: vitals are stable. Eyes: Eyes are YANDEL EOMI without conjuctival erythema or icterus. ENT: External examination was negative for masses. Neck: Negative for masses or palpable thyromegaly Respiratory: Lung sounds were generally clear bilaterally Cardiovascular: Heart was RRR without significant murmur, gallops aoe rubs Gastrointestinal: No palpable hepatic or splenomegaly. The abdomen was soft with normal bowel sounds. Lymphatic system: there was no palpable peripheral lymphadenopathy Musculoskeletal System: The musculoskeletal system seemed concordant with age. Skin: The skin was negative for jaundice. Neurologic exam: The exam was negative for any focal findings. Deep tendon reflexes were equal and symmetrical. Psychiatric exam: Was essentially negative with normal mood and effect. Extremities: negative for edema Laboratory Results Last 24 Hours Test 10/19/17 16:43 10/19/17 20:46 10/20/17 07:30 10/20/17 08:52 Bedside Glucose 98 mg/dl 97 mg/dl 91 mg/dl Prostate Specific Antigen 1.490 ng/ml Test 10/20/17 11:22 Bedside Glucose 92 mg/dl Assessment & Plan A recent PSA that has just returned shows a PSA 1.490. The query is with his prior PSA being so elevated in with a history of a known prostatic nodule as to whether antiandrogen therapy should begin. With the current PSA there would be no plans of beginning any sort of antiandrogen therapy. Prostate nodule of course will need to be biopsied. I suspect then that this will be a few weeks down the road as he recovers from presumptive C. difficile colitis. We will be delighted of course to re-gather with Mr. Emmanuel should issues arise that of course become more concerning for underlying neoplasm. At this juncture we have little to offer to his ongoing therapy.
[2017-10-20 16:25] VITALS: TEMP 38.3
[2017-10-20 20:05] VITALS: BP 136/63; PULSE 102; TEMP 37.4; O2SAT 88
[2017-10-20] MEDS: LOVASTATIN 20 MG TAB PO SCH (20:10)
[2017-10-20 23:38] VITALS: BP 146/66; PULSE 101; TEMP 38.6; O2SAT 97
[2017-10-21] MEDS: RASPBERRY SYRUP 5 ML UDP PO SCH ×4 (00:37→17:31)
[2017-10-21] MEDS: VANCOMYCIN HCL 250 MG/5 ML SOLN PO SCH ×4 (00:37→17:31)
[2017-10-21] MEDS: PIPERACILL/TAZOBAC IV 3.375 GM in DEXTROSE 5% 100ML 100 ML IV SCH ×2 (01:41→10:37)
[2017-10-21] MEDS: ACETAMINOPHEN 325 MG TAB PO PRN ×2 (01:41→08:01)
[2017-10-21] MEDS: HYDROmorphone INJ 1 MG/ML SYR IV PRN ×4 (01:44→17:37)
[2017-10-21] MEDS: SODIUM CHLORIDE 0.9% 1000ML 1,000 ML IV SCH (04:49)
[2017-10-21 05:59] VITALS: TEMP 37.5
[2017-10-21 06:57] VITALS: BP 137/66; PULSE 89; TEMP 37.7; O2SAT 96
[2017-10-21] MEDS: INSULIN ASPART 100 UNITS/ML 3 ML PEN SC SCH ×4 (07:25→21:00)
[2017-10-21] MEDS: TAMSULOSIN HCL 0.4 MG CAP PO SCH ×2 (07:58→21:15)
[2017-10-21] MEDS: ASPIRIN 81 MG CHEW PO SCH (07:58)
[2017-10-21] MEDS: SACCHAROMYCES BOUL (FLORASTOR) 250 MG CAP PO SCH (07:59)
[2017-10-21] MEDS: METOPROLOL TARTRATE 50 MG TAB PO SCH ×2 (07:59→21:15)
[2017-10-21] MEDS: FINASTERIDE 5 MG TAB PO SCH (07:59)
[2017-10-21] MEDS: AMLODIPINE BESYLATE 5 MG TAB PO SCH (07:59)
[2017-10-21] MEDS: SODIUM BICARBONATE 650 MG TAB PO SCH ×2 (08:00→21:13)
[2017-10-21] MEDS: PANTOprazole SOD 40 MG TAB PO SCH ×2 (08:00→21:16)
[2017-10-21] MEDS: CETIRIZINE HCL 10 MG TAB PO SCH (08:00)
[2017-10-21 08:13] LABS: BASO % 0.3 %; BASO ABS # 0.02 K/uL (0-0.2); EOS % 1.1 %; EOS ABS # 0.08 K/uL (0-0.5); HEMATOCRIT 28.4 % (42-52); HEMOGLOBIN 9.4 g/dL (14.0-18.0); IG# 0.04 K/uL (0.00-0.02); LYMPH % 28.5 %; LYMPH ABS # 2.14 K/uL (1.2-3.4); MEAN CELL VOLUME 80.2 fL (80-100); MEAN CORPUSCULAR HEMOGLOBIN 26.6 pg (25-34); MEAN CORPUSCULAR HGB CONC 33.1 g/dl (32-36); MEAN PLATELET VOLUME 8.9 fL (7.4-10.4); MONO % 12.4 %; MONO ABS # 0.93 K/uL (0.11-0.59); NEUT % 57.2 %; PLATELET COUNT 371 K/uL (130-400); RED CELL DISTRIBUTION WIDTH CV 16.4 % (11.5-14.5); RED CELL DISTRIBUTION WIDTH SD 48.2 fL (36.4-46.3); WHITE BLOOD COUNT 7.51 K/uL (4.8-10.8)
[2017-10-21 08:32] LABS: CREATININE 1.56 mg/dl (0.60-1.40); PHOSPHORUS 2.2 mg/dl (2.5-4.9)
[2017-10-21] MEDS ORDERED: POTASSIUM CHLORIDE 20 MEQ TABCR PO ONE (10:30)
[2017-10-21] MEDS ORDERED: NURSING VERBAL MED ORDER ONE (10:30)
[2017-10-21] MEDS: MAGNESIUM SULFATE 1GM / D5W 1 GM in PREMIXED IN D5W 100 ML IV SCH ×2 (10:37→12:02)
--- NOTE | 2017-10-21 10:53 | Progress Note ---
Subjective Date of Service: Oct 21, 2017. Subjective Pt evaluation today including: conversation w/ patient, chart review, lab review Voiding: vega catheter in place (patent, draining clear, yellow urine ) Pt stating he feels "groggy" and worn down this morning. Continues to spike fevers. Bronchoaveolar lavage growing cristino albicans. Interestingly the pt's PSA yesterday was noted to have normalized at 1.49 yesterday from 74.6 a few weeks ago in the setting of urosepsis. PSA noted to be 50.February. I did repeat a PSA today which is again noted to be 1.41. Double to 2.82 with finasteride. Problem List Medical Problems: (1) Acute renal failure Status: Acute (2) Hyperbilirubinemia Status: Acute (3) Leukocytosis Status: Acute (4) UTI (urinary tract infection) Status: Acute Review of Systems Constitutional: + fever, + fatigue, No chills Respiratory: No shortness of breath Cardiac: No chest pain Abdomen: No pain, No nausea, No vomiting Male : No hematuria Heme: No abnormal bleeding/bruising Objective Vital Signs Date Time Temp Pulse Resp B/P (MAP) Pulse Ox O2 Delivery O2 Flow Rate FiO2 10/21/17 08:15 Nasal Cannula 2.0 10/21/17 06:57 37.7 89 18 137/66 (89) 96 Room Air 10/21/17 05:59 37.5 10/21/17 00:00 Nasal Cannula 2.0 10/20/17 23:38 38.6 101 18 146/66 (92) 97 Nasal Cannula 2.0 10/20/17 20:05 37.4 102 136/63 (87) 88 Room Air 10/20/17 16:25 38.3 10/20/17 15:30 Room Air 10/20/17 15:18 37.9 104 18 133/91 (105) 92 Room Air Physical Exam General Appearance: no apparent distress Eyes: normal inspection ENT: hearing grossly normal Neck: no JVD Respiratory/Chest: no respiratory distress, no accessory muscle use, + pertinent finding (nasal cannula O2 in place) Cardiovascular: no JVD Extremities: normal inspection 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: alert, normal mood/affect, oriented x 3 Skin: normal color Laboratory Results Last 24 Hours Test 10/20/17 11:22 10/20/17 16:29 10/20/17 20:34 10/21/17 07:15 Bedside Glucose 92 mg/dl 94 mg/dl 95 mg/dl 99 mg/dl Test 10/21/17 08:01 10/21/17 08:44 White Blood Count 7.51 K/uL Red Blood Count 3.54 M/uL Hemoglobin 9.4 g/dL Hematocrit 28.4 % Mean Corpuscular Volume 80.2 fL Mean Corpuscular Hemoglobin 26.6 pg Mean Corpuscular Hemoglobin Concent 33.1 g/dl Platelet Count 371 K/uL Mean Platelet Volume 8.9 fL Neutrophils (%) (Auto) 57.2 % Lymphocytes (%) (Auto) 28.5 % Monocytes (%) (Auto) 12.4 % Eosinophils (%) (Auto) 1.1 % Basophils (%) (Auto) 0.3 % Neutrophils # (Auto) 4.30 K/uL Lymphocytes # (Auto) 2.14 K/uL Monocytes # (Auto) 0.93 K/uL Eosinophils # (Auto) 0.08 K/uL Basophils # (Auto) 0.02 K/uL RDW Standard Deviation 48.2 fL RDW Coefficient of Variation 16.4 % Immature Granulocyte % (Auto) 0.5 % Immature Granulocyte # (Auto) 0.04 K/uL Sodium Level 138 mmol/L Potassium Level 3.0 mmol/L Chloride Level 106 mmol/L Carbon Dioxide Level 25 mmol/L Anion Gap 7.0 mmol/L Blood Urea Nitrogen 8 mg/dl Creatinine 1.56 mg/dl Est Creatinine Clear Calc Drug Dose 41.5 ml/min Estimated GFR () 50.0 Estimated GFR (Non- 43.1 BUN/Creatinine Ratio 4.9 Random Glucose 91 mg/dl Calcium Level 7.0 mg/dl Phosphorus Level 2.2 mg/dl Magnesium Level 1.3 mg/dl Prostate Specific Antigen 1.410 ng/ml Assessment and Plan A/P: Fevers, UR, elevated PSA, recent Urosepsis and c-diff No evidence for prostatitic abscess on CT to account for pt's fevers. Management of c-diff per primary service. Recent blood and urine cultures negative. As for the pt's elevated PSA and hx of prostate nodule, it is recommended that he have a prostate biopsy as an outpatient. Unclear as to why his PSA has normalized given his high risk for prostate cancer with a nodular prostate, family hx of prostate cancer, and being an male. Will need to wait until infection adequately clears for prostate biopsy as well as to coordinate with the long-term and ID given his recent urosepsis and c-diff. Will attempt to coordinate. Pt noted to have a negative bone scan for metastatic disease in September. Continue finasteride and Flomax. Plan for a trial of void once the pt clinically improved and more ambulatory. Will continue to follow intermittently with primary service. Discharge planning: other
--- NOTE | 2017-10-21 11:04 | PULMONARY PROGRESS NOTE ---
DATE: 10/21/2017 SUBJECTIVE: The patient persists with a mild low-grade temperature elevation for reasons that are not clear. Bronchial washings have grown out only cristino, which I do not believe is a pathogen here. We may be looking at fever from medication or perhaps his antibiotic IV Zosyn. We will defer to infectious disease. He is on p.o. vancomycin for C. diff. With a negative urine culture and a PSA that is not particularly elevated, I would doubt chronic prostatitis as the source of the low-grade fever. The echocardiogram did not suggest any valvular vegetation in the absence of a positive blood culture or suggestion of a vegetation, I do believe a KAREEM is warranted, but once again, we will defer to the infectious disease advisor consultant.
--- NOTE | 2017-10-21 11:29 | Progress Note ---
Subjective Date of Service: Oct 21, 2017. Subjective Patient remains with low-grade fevers. His current temperature is 37.7. He remains on oral vancomycin for previously diagnosed C diff. He was also started empirically by primary service on Zosyn over the weekend. He did undergo bronchoscopy and cultures so far showing normal jenna only. His AFB and fungal smears are negative. His routine culture did grow Koki albicans and I am in agreement Pulmonary that this is likely colonization and not a pathogen. His white blood cell count is normal. Hemoglobin value a wilkerson was obtained and there is no plan for ongoing therapy for elevated PSA is this is normalized. He is also being followed by Urology and there are plans for an outpatient biopsy when the patient is otherwise stable. Problem List Medical Problems: (1) Acute renal failure Status: Acute (2) Hyperbilirubinemia Status: Acute (3) Leukocytosis Status: Acute (4) UTI (urinary tract infection) Status: Acute Objective Vital Signs Date Time Temp Pulse Resp B/P (MAP) Pulse Ox O2 Delivery O2 Flow Rate FiO2 10/21/17 08:15 Nasal Cannula 2.0 10/21/17 06:57 37.7 89 18 137/66 (89) 96 Room Air 10/21/17 05:59 37.5 10/21/17 00:00 Nasal Cannula 2.0 10/20/17 23:38 38.6 101 18 146/66 (92) 97 Nasal Cannula 2.0 10/20/17 20:05 37.4 102 136/63 (87) 88 Room Air 10/20/17 16:25 38.3 10/20/17 15:30 Room Air 10/20/17 15:18 37.9 104 18 133/91 (105) 92 Room Air Laboratory Results Item Value Date Time Gram Stain - Final Complete 10/19/17 0942 Bronchial Washings Right & Left Lower Lobe Urine Culture - Final Complete 10/16/17 0545 Urine , Clean Catch NO GROWTH - LESS THAN 1,000 COLONIES/ML Blood Culture - Final Complete 10/16/17 0430 Blood NO GROWTH Blood Culture - Final Complete 10/16/17 0430 Blood NO GROWTH Last 24 Hours Test 10/20/17 16:29 10/20/17 20:34 10/21/17 07:15 10/21/17 08:01 Bedside Glucose 94 mg/dl 95 mg/dl 99 mg/dl White Blood Count 7.51 K/uL Red Blood Count 3.54 M/uL Hemoglobin 9.4 g/dL Hematocrit 28.4 % Mean Corpuscular Volume 80.2 fL Mean Corpuscular Hemoglobin 26.6 pg Mean Corpuscular Hemoglobin Concent 33.1 g/dl Platelet Count 371 K/uL Mean Platelet Volume 8.9 fL Neutrophils (%) (Auto) 57.2 % Lymphocytes (%) (Auto) 28.5 % Monocytes (%) (Auto) 12.4 % Eosinophils (%) (Auto) 1.1 % Basophils (%) (Auto) 0.3 % Neutrophils # (Auto) 4.30 K/uL Lymphocytes # (Auto) 2.14 K/uL Monocytes # (Auto) 0.93 K/uL Eosinophils # (Auto) 0.08 K/uL Basophils # (Auto) 0.02 K/uL RDW Standard Deviation 48.2 fL RDW Coefficient of Variation 16.4 % Immature Granulocyte % (Auto) 0.5 % Immature Granulocyte # (Auto) 0.04 K/uL Sodium Level 138 mmol/L Potassium Level 3.0 mmol/L Chloride Level 106 mmol/L Carbon Dioxide Level 25 mmol/L Anion Gap 7.0 mmol/L Blood Urea Nitrogen 8 mg/dl Creatinine 1.56 mg/dl Est Creatinine Clear Calc Drug Dose 41.5 ml/min Estimated GFR () 50.0 Estimated GFR (Non- 43.1 BUN/Creatinine Ratio 4.9 Random Glucose 91 mg/dl Calcium Level 7.0 mg/dl Phosphorus Level 2.2 mg/dl Magnesium Level 1.3 mg/dl Test 10/21/17 08:44 Prostate Specific Antigen 1.410 ng/ml Assessment and Plan (1) C. difficile colitis Assessment & Plan: Continue vancomycin at current dose. I would suggest a 21 day course of oral vancomycin to treat C diff. (2) Fever Assessment & Plan: There is no current signs of active bacterial infection and certainly the Zosyn could be discontinued from an Infectious Diseases standpoint as beta lactams are likely to cause fever. There was some concern of Rocephin induced fever at the beginning of his hospitalization and he did have some mild intermittent improvement of his fevers went to beta-lactam antibiotics were discontinued however these did return. There have been no evidence of DVT her other medications that would likely to be the cause of his fever. I do not have any contraindication to either KAREEM were discontinuation of Zosyn. Discharge planning: other Problem Qualifiers (1) Fever: Fever type: unspecified Qualified Codes: R50.9 - Fever, unspecified
[2017-10-21 12:36] LABS: HERPES SIMPLEX VIRUS CULT NOT ISOLATED (NOT ISOLATED)
--- NOTE | 2017-10-21 13:11 | Hematology/Oncology Prog Note ---
Hematology/Onc Progress Note Date of Service Oct 21, 2017. Diagnoses History of prostate nodule and a previously elevated PSA Medications Medications Administered Medications (Trade) Dose Ordered Sig/Candelaria Route Start Time Stop Time Status Last Admin Dose Admin Sodium Chloride 2,000 ml @ 999 mls/hr Q2H1M STAT IV 10/05/17 13:18 10/05/17 15:18 DC 10/05/17 13:33 999 MLS/HR Piperacillin Sod/ Tazobactam Sod (Zosyn Iv) 4.5 gm NOW STAT IV 10/05/17 13:21 10/05/17 13:24 DC 10/05/17 13:32 4.5 GM Levofloxacin (Levaquin / D5W) 750 mg NOW STAT IV 10/05/17 14:25 10/05/17 14:27 DC 10/05/17 15:25 750 MG Vancomycin HCl 1500 mg/Sodium Chloride 530 ml @ 200 mls/hr ONE STAT IV 10/05/17 14:25 10/05/17 17:03 DC 10/05/17 15:25 200 MLS/HR Heparin Sodium (Porcine) (Heparin Sq 5000 Unit/0.5ml) 5,000 unit Q8 SQ 10/05/17 22:00 10/18/17 14:21 DC 10/18/17 14:06 5,000 UNIT Acetaminophen (Tylenol Tab) 650 mg Q4H PRN PO 10/05/17 15:15 10/07/17 11:50 DC 10/07/17 06:37 650 MG Amlodipine Besylate (Norvasc Tab) 10 mg DAILY PO 10/06/17 09:00 11/05/17 08:59 10/21/17 07:59 10 MG Aspirin (Aspirin Chew) 81 mg DAILY PO 10/06/17 09:00 11/05/17 08:59 10/21/17 07:58 81 MG Cetirizine HCl (zyrTEC TAB) 10 mg DAILY PO 10/06/17 09:00 11/05/17 08:59 10/21/17 08:00 10 MG Finasteride (Proscar Tab) 5 mg DAILY PO 10/06/17 09:00 11/05/17 08:59 10/21/17 07:59 5 MG Hydralazine HCl (Apresoline Tab) 50 mg TID PO 10/05/17 21:00 11/04/17 20:59 10/21/17 07:58 50 MG Lovastatin (Mevacor Tab) 20 mg HS PO 10/05/17 21:00 11/04/17 20:59 10/20/17 20:10 20 MG Metoprolol Tartrate (Lopressor Tab) 50 mg BID PO 10/05/17 21:00 11/04/17 20:59 10/21/17 07:59 50 MG Pantoprazole Sodium (Protonix Tab) 40 mg BID PO 10/05/17 21:00 11/04/17 20:59 10/21/17 08:00 40 MG Sodium Bicarbonate (Sodium Bicarbonate Tab) 1,300 mg BID PO 10/05/17 21:00 11/04/17 20:59 10/21/17 08:00 1,300 MG Tamsulosin HCl (Flomax Cap) 0.4 mg BID PO 10/05/17 21:00 11/04/17 20:59 10/21/17 07:58 0.4 MG Levofloxacin 750 mg/Prmx 150 ml @ 100 mls/hr Q48H IV 10/07/17 16:00 10/12/17 15:59 DC 10/11/17 16:32 100 MLS/HR Albuterol/ Ipratropium (Duoneb) 3 ml QIDR INH 10/05/17 20:00 10/09/17 10:36 DC 10/09/17 07:39 3 ML Insulin Glargine (Lantus Solostar Pen) 11 units NOW ONCE SC 10/05/17 22:45 10/05/17 22:46 DC 10/05/17 23:04 11 UNITS Insulin Aspart (novoLOG ASPART) SLIDING SCALE ACHS SC 10/06/17 07:00 11/05/17 00:00 10/17/17 21:54 2 UNITS Hydromorphone HCl (Dilaudid Inj) 1 mg NOW STAT IV 10/06/17 10:05 10/06/17 10:13 DC 10/06/17 10:45 1 MG Sodium Chloride 1,000 ml @ 75 mls/hr [id number] IV 10/06/17 11:45 11/05/17 11:44 10/21/17 04:49 75 MLS/HR Cefepime HCl 1000 mg/Syringe 11 ml @ 5.5 mls/min 1200 IV 10/06/17 12:00 10/06/17 13:00 DC 10/06/17 12:15 5.5 MLS/MIN Cefepime HCl 500 mg/Syringe 5.5 ml @ 5.5 mls/min Q24H IV 10/07/17 12:00 10/07/17 14:49 DC 10/07/17 11:47 5.5 MLS/MIN Hydromorphone HCl (Dilaudid Inj) 1 mg NOW ONCE IV 10/06/17 19:04 10/06/17 19:05 DC 10/06/17 19:16 1 MG Acetaminophen 100 ml @ 400 mls/hr Q8H PRN IV 10/07/17 12:00 10/14/17 10:15 DC 10/14/17 00:21 400 MLS/HR Albumin Human (Albumin 25%) 25 gm ONE ONCE IV 10/07/17 20:30 10/07/17 20:39 DC 10/07/17 20:51 25 GM Albumin Human (Albumin 25%) 25 gm ONE ONCE IV 10/07/17 21:30 10/07/17 21:31 DC 10/07/17 21:45 25 GM Sodium Chloride 500 ml @ 999 mls/hr Q31M IV 10/07/17 20:30 10/07/17 21:00 DC 10/07/17 20:30 999 MLS/HR Potassium Chloride (Klor-Con Tab) 40 meq NOW STAT PO 10/07/17 20:18 10/07/17 20:39 DC 10/07/17 21:02 40 MEQ Magnesium Sulfate 1 gm/Prmx 100 ml @ 100 mls/hr Q1H IV 10/09/17 11:00 10/09/17 12:59 DC 10/09/17 13:04 100 MLS/HR Hydromorphone HCl (Dilaudid Inj) 1 mg Q4 PRN IV 10/09/17 18:00 10/23/17 17:59 10/21/17 08:01 1 MG Vancomycin HCl (Vancomycin Oral Soln) 125 mg Q6 PO 10/09/17 20:00 10/10/17 06:52 DC 10/10/17 06:25 125 MG Raspberry (Raspberry Syrup 5ml Cup) 5 ml Q6 PO 10/09/17 20:00 10/10/17 07:01 DC 10/10/17 06:25 5 ML Vancomycin HCl (Vancomycin Oral Soln) 250 mg Q6 PO 10/10/17 12:00 10/23/17 19:59 10/21/17 12:01 250 MG Vancomycin HCl (Vancomycin Oral Soln) 125 mg ONE STAT PO 10/10/17 06:59 10/10/17 07:01 DC 10/10/17 07:49 125 MG Raspberry (Raspberry Syrup 5ml Cup) 5 ml NOW STAT PO 10/10/17 06:59 10/10/17 07:01 DC 10/10/17 07:50 5 ML Raspberry (Raspberry Syrup 5ml Cup) 5 ml Q6 PO 10/10/17 12:00 10/24/17 11:59 10/21/17 12:01 5 ML Acetaminophen (Tylenol Tab) 650 mg Q4H PRN PO 10/15/17 01:45 11/14/17 01:44 10/21/17 08:01 650 MG Piperacillin Sod/ Tazobactam Sod (Zosyn Iv) 3.375 gm NOW STAT IV 10/16/17 04:18 10/16/17 04:42 DC 10/16/17 05:24 3.375 GM Saccharomyces Boulardii (Florastor Cap) 250 mg DAILY PO 10/16/17 09:00 11/15/17 08:59 10/21/17 07:59 250 MG Piperacillin Sod/ Tazobactam Sod 3.375 gm/Dextrose 115 ml @ 28.75 mls/ hr Q8H IV 10/16/17 18:00 10/21/17 17:59 10/21/17 10:37 28.75 MLS/HR Methylprednisolone Sodium Succinate (Solu-Medrol IV) 125 mg NOW STAT IV 10/17/17 05:26 10/17/17 05:45 DC 10/17/17 06:01 125 MG Midazolam HCl (Versed Inj) 5 mg ONE ONCE IV 10/19/17 09:54 10/19/17 09:56 DC 10/19/17 09:54 5 MG Fentanyl Citrate (Fentanyl Inj) 50 mcg ONE ONCE IV 10/19/17 09:54 10/19/17 09:56 DC 10/19/17 09:54 50 MCG Lidocaine HCl (Lidocaine 2% Preserved Inj) 15 ml ONE ONCE INSTIL 10/19/17 09:54 10/19/17 09:56 DC 10/19/17 09:54 15 ML Lidocaine HCl (Lidocaine 4% Inh Soln) 2 ml ONE ONCE BJORN 10/19/17 09:54 10/19/17 09:56 DC 10/19/17 09:54 2 ML Oxymetazoline HCl (Afrin 0.05% Nasal Waller) 4 sprays ONE ONCE NA 10/19/17 09:54 10/19/17 09:56 DC 10/19/17 09:54 4 SPRAYS Levalbuterol (Xopenex 1.25MG/ 3ML Neb) 1.25 mg ONE ONCE INH 10/19/17 09:54 10/19/17 09:56 DC 10/19/17 09:54 1.25 MG Magnesium Sulfate 1 gm/Prmx 100 ml @ 100 mls/hr Q1H IV 10/21/17 10:30 10/21/17 12:29 DC 10/21/17 12:02 100 MLS/HR Potassium Chloride (Klor-Con Tab) 40 meq NOW ONCE PO 10/21/17 10:30 10/21/17 10:31 DC 10/21/17 10:37 40 MEQ Subjective He continues to have diarrhea otherwise besides diarrhea and fatigue he has negative review of systems Review of Systems: Constitutional: Negative for night sweats, or fever Eyes: Negative for event change of vision ENT: Negative for epistaxis, nasal discharge, sore throat, or deafness Cardiovascular: Negative for chest pain, palpitations, dizziness, diaphoresis Respiratory: Negative for new shortness of breath,hemoptysis, or purulent cough Gastrointestinal: Negative for hematemesis, melena, nausea, vomiting, or dyspepsia Integumentary (skin): Negative for rash or jaundice discoloration Genitourinary: Negative for urinary frequency, hematuria, or dysuria Neurological: Negative for weakness, seizure activity, headache, or dizziness Lymphatic/Hematologic: Negative for petechiae, bleeding or new adenopathy Musculoskeletal: Negative for new joint or back pain. Chronic left leg discomfort. Previous x-rays that show degenerative disease in the hip Allergic/Immunologic: Negative for unusual rash or pruritis. Vital Signs Vital Signs Past 12 Hours Date Time Temp Pulse Resp B/P (MAP) Pulse Ox O2 Delivery O2 Flow Rate FiO2 10/21/17 08:15 Nasal Cannula 2.0 10/21/17 06:57 37.7 89 18 137/66 (89) 96 Room Air 10/21/17 05:59 37.5 Physical Exam Constitutional: vitals are stable. Eyes: Eyes are YANDEL EOMI without conjuctival erythema or icterus. ENT: External examination was negative for masses. Neck: Negative for masses or palpable thyromegaly Respiratory: Lung sounds were generally clear bilaterally Cardiovascular: Heart was RRR without significant murmur, gallops aoe rubs Gastrointestinal: No palpable hepatic or splenomegaly. The abdomen was soft with normal bowel sounds. Lymphatic system: there was no palpable peripheral lymphadenopathy Musculoskeletal System: The musculoskeletal system seemed concordant with age. Skin: The skin was negative for jaundice. Neurologic exam: The exam was negative for any focal findings. Deep tendon reflexes were equal and symmetrical. Psychiatric exam: Was essentially negative with normal mood and effect. Extremities: negative for edema Laboratory Last 24 Hours Test 10/20/17 16:29 10/20/17 20:34 10/21/17 07:15 10/21/17 08:01 Bedside Glucose 94 mg/dl 95 mg/dl 99 mg/dl White Blood Count 7.51 K/uL Red Blood Count 3.54 M/uL Hemoglobin 9.4 g/dL Hematocrit 28.4 % Mean Corpuscular Volume 80.2 fL Mean Corpuscular Hemoglobin 26.6 pg Mean Corpuscular Hemoglobin Concent 33.1 g/dl Platelet Count 371 K/uL Mean Platelet Volume 8.9 fL Neutrophils (%) (Auto) 57.2 % Lymphocytes (%) (Auto) 28.5 % Monocytes (%) (Auto) 12.4 % Eosinophils (%) (Auto) 1.1 % Basophils (%) (Auto) 0.3 % Neutrophils # (Auto) 4.30 K/uL Lymphocytes # (Auto) 2.14 K/uL Monocytes # (Auto) 0.93 K/uL Eosinophils # (Auto) 0.08 K/uL Basophils # (Auto) 0.02 K/uL RDW Standard Deviation 48.2 fL RDW Coefficient of Variation 16.4 % Immature Granulocyte % (Auto) 0.5 % Immature Granulocyte # (Auto) 0.04 K/uL Sodium Level 138 mmol/L Potassium Level 3.0 mmol/L Chloride Level 106 mmol/L Carbon Dioxide Level 25 mmol/L Anion Gap 7.0 mmol/L Blood Urea Nitrogen 8 mg/dl Creatinine 1.56 mg/dl Est Creatinine Clear Calc Drug Dose 41.5 ml/min Estimated GFR () 50.0 Estimated GFR (Non- 43.1 BUN/Creatinine Ratio 4.9 Random Glucose 91 mg/dl Calcium Level 7.0 mg/dl Phosphorus Level 2.2 mg/dl Magnesium Level 1.3 mg/dl Test 10/21/17 08:44 10/21/17 11:17 Prostate Specific Antigen 1.410 ng/ml Bedside Glucose 113 mg/dl Assessment & Plan He seems to be doing well. PSAs have been repeated now on 2 occasions and are less than 2. At this juncture does not appear to be any obvious neoplasm. We will sign off and please do not hesitate to reconsult if needed.
--- NOTE | 2017-10-21 15:13 | Progress Note ---
Subjective Date of Service: Oct 21, 2017. Subjective Pt evaluation today including: conversation w/ patient, physical exam, chart review, lab review, review of studies, conversation w/ python consultant, review of inpatient medication list Was spiking fever 38.7 in the last 24 hour, generalized weakness, was able to walk prior to his admission, currently not able to walk because right lower leg pain and difficult to move because on a pain , no nausea vomiting however has decreased appetite, has chronic Hamm catheter, need to be changed every 2 months, currently urine is clean Problem List Medical Problems: (1) Acute renal failure Status: Acute (2) Hyperbilirubinemia Status: Acute (3) Leukocytosis Status: Acute (4) UTI (urinary tract infection) Status: Acute Review of Systems Constitutional: + fever, + weakness, + fatigue Eyes: No see HPI, No worsening of vision, No eye pain, No redness, No discharge , No diplopia, No problem reported ENT: No see HPI, No hearing loss, No unusual epistaxis, No nasal symptoms, No sore throat, No tinnitus, No dental problems, No trouble swallowing, No problem reported Respiratory: No see HPI, No cough, No sputum, No wheezing, No shortness of breath, No dyspnea on exertion, No dyspnea at rest, No hemoptysis, No problem reported Cardiac: No see HPI, No chest pain, No orthopnea, No PND, No edema, No claudication, No palpitations, No problem reported Abdomen: No see HPI, No pain, No nausea, No vomiting, No diarrhea, No constipation, No GI bleeding, No problem reported Musculoskeletal: + joint pain Male : No see HPI, No dysuria, No urinary frequency, No incontinence, No nocturia more than once/night, No slowing stream, No hematuria, No sexual dysfunction, No problem reported Neurologic: No see HPI, No memory loss, No paralysis, No weakness, No numbness/ tingling, No vertigo, No balance problems, No problem reported Psychiatric: No see HPI, No depression symptoms, No anhedonism, No anxiety, No insomnia, No substance abuse, No problem reported Heme: No see HPI, No abnormal bleeding/bruising, No clotting problems, No swollen lymph nodes, No night sweats, No problem reported Endo: No see HPI, No fatigue, No excessive thirst, No excessive urination, No problem reported Skin: No see HPI, No rash, No itch, No new/changing skin lesions, No color change, No bleeding, No problem reported Objective Vital Signs Date Time Temp Pulse Resp B/P (MAP) Pulse Ox O2 Delivery O2 Flow Rate FiO2 10/21/17 08:15 Nasal Cannula 2.0 10/21/17 06:57 37.7 89 18 137/66 (89) 96 Room Air 10/21/17 05:59 37.5 10/21/17 00:00 Nasal Cannula 2.0 10/20/17 23:38 38.6 101 18 146/66 (92) 97 Nasal Cannula 2.0 10/20/17 20:05 37.4 102 136/63 (87) 88 Room Air 10/20/17 16:25 38.3 10/20/17 15:30 Room Air 10/20/17 15:18 37.9 104 18 133/91 (105) 92 Room Air Physical Exam General Appearance: no apparent distress, + cachetic, + thin, + pertinent finding (Frail chronically ill looking,) Eyes: normal inspection, PERRL, EOMI, sclerae normal ENT: normal ENT inspection, hearing grossly normal, pharynx normal Neck: supple, no adenopathy, thyroid normal, no JVD, no carotid bruits, trachea midline Respiratory/Chest: chest non-tender, normal breath sounds, + decreased breath sounds Cardiovascular: regular rate, rhythm, no edema, no gallop Abdomen: normal bowel sounds, non tender, soft, no organomegaly, no pulsatile mass, + pertinent finding (Hamm in place with clean urine) Extremities: non-tender, normal inspection, no pedal edema 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, no motor/sensory deficits, alert, normal mood/affect Skin: normal color, warm/dry Laboratory Results Last 24 Hours Test 10/20/17 16:29 10/20/17 20:34 10/21/17 07:15 10/21/17 08:01 Bedside Glucose 94 mg/dl 95 mg/dl 99 mg/dl White Blood Count 7.51 K/uL Red Blood Count 3.54 M/uL Hemoglobin 9.4 g/dL Hematocrit 28.4 % Mean Corpuscular Volume 80.2 fL Mean Corpuscular Hemoglobin 26.6 pg Mean Corpuscular Hemoglobin Concent 33.1 g/dl Platelet Count 371 K/uL Mean Platelet Volume 8.9 fL Neutrophils (%) (Auto) 57.2 % Lymphocytes (%) (Auto) 28.5 % Monocytes (%) (Auto) 12.4 % Eosinophils (%) (Auto) 1.1 % Basophils (%) (Auto) 0.3 % Neutrophils # (Auto) 4.30 K/uL Lymphocytes # (Auto) 2.14 K/uL Monocytes # (Auto) 0.93 K/uL Eosinophils # (Auto) 0.08 K/uL Basophils # (Auto) 0.02 K/uL RDW Standard Deviation 48.2 fL RDW Coefficient of Variation 16.4 % Immature Granulocyte % (Auto) 0.5 % Immature Granulocyte # (Auto) 0.04 K/uL Sodium Level 138 mmol/L Potassium Level 3.0 mmol/L Chloride Level 106 mmol/L Carbon Dioxide Level 25 mmol/L Anion Gap 7.0 mmol/L Blood Urea Nitrogen 8 mg/dl Creatinine 1.56 mg/dl Est Creatinine Clear Calc Drug Dose 41.5 ml/min Estimated GFR () 50.0 Estimated GFR (Non- 43.1 BUN/Creatinine Ratio 4.9 Random Glucose 91 mg/dl Calcium Level 7.0 mg/dl Phosphorus Level 2.2 mg/dl Magnesium Level 1.3 mg/dl Test 10/21/17 08:44 10/21/17 11:17 Prostate Specific Antigen 1.410 ng/ml Bedside Glucose 113 mg/dl Assessment and Plan 72 yo M was admitted to [facility] from 09/17-10/01 for urosepsis due to pansentivie Ecoli and prostatitis, acute renal failure and elevated LFTs. He was discharged on IV ceftriaxone for another 20 days for prostatitis. He was readmitted on October 07, 2015, because of spiking fever and generalized weakness PMHx of hepatitis A, HTN, BPH, osteoarthritis, who was recently Fever of unknown origin, possibly related to cdiff however continues to spike temps despite several days of vanco, Bronch 3/6 noted for chronic mucopurulent bronchitis but no acute infections, path pending, discussed with infectious disease, patient's fever and likely from using anti beta-lactam antibiotic, per infectious disease stop zosyn, hold KAREEM, and continue oral Vanco,oral vanco can be totally 21 days, and a possible source of infection possibilities chronic prostatitis as the source of the low-grade fever. The echocardiogram did not suggest any valvular vegetation in the absence of a positive blood culture or suggestion of a vegetation. hx of Prostatitis, PSA less than 2, C diff colitis: Continue Vanco PO for cdiff, total will be 21 days , less like HCAP Recent GI bleed with gastric ulcer: Hb has been trending down, no s/sx of bleeding Iron, B12, folate WNL EGD on that admission showed a non-bleeding ulcer Recent SONY, ATN: Cr has improved since last admission, down to 1.5, adequate UOP Transaminitis: LFT continue to trend down, supporting diagnosis of hepatitis due to sepsis from last admission - Left leg pain: negative for DVT, says pain is chronic from an injury pain controlled -Left hip pain: imaging showed significant OA from previous admission. HTN BPH Hx hepatitis A LFTs are improved compared to previous admission the above condition is stable, continue current care DVT ppx: Teds, scd, heparin subq CODE STATUS: DNR [facility] Continued [facility] stay due to: home environment unsafe for pt Discharge planning: other
[2017-10-21 15:27] VITALS: BP 119/48; PULSE 84; TEMP 36.9; O2SAT 97
[2017-10-21 16:00] VITALS: O2SAT 97
[2017-10-21 21:11] VITALS: BP 144/72; PULSE 96
[2017-10-21] MEDS: MAGNESIUM OXIDE 400 MG TAB PO SCH (21:14)
[2017-10-21] MEDS: LOVASTATIN 20 MG TAB PO SCH (21:16)
[2017-10-21 23:28] VITALS: BP 132/65; PULSE 86; TEMP 38.3; O2SAT 100
[2017-10-22] MEDS: VANCOMYCIN HCL 250 MG/5 ML SOLN PO SCH ×4 (00:16→17:06)
[2017-10-22] MEDS: HYDROmorphone INJ 1 MG/ML SYR IV PRN ×5 (00:16→21:39)
[2017-10-22] MEDS: RASPBERRY SYRUP 5 ML UDP PO SCH ×4 (00:17→17:06)
[2017-10-22] MEDS: ACETAMINOPHEN 325 MG TAB PO PRN (00:23)
[2017-10-22 07:02] VITALS: BP 145/73; PULSE 90; TEMP 37.2; O2SAT 99
[2017-10-22] MEDS: INSULIN ASPART 100 UNITS/ML 3 ML PEN SC SCH ×4 (07:19→21:38)
[2017-10-22 08:05] LABS: BASO % 0.1 %; BASO ABS # 0.01 K/uL (0-0.2); EOS % 2.2 %; EOS ABS # 0.17 K/uL (0-0.5); HEMATOCRIT 27.8 % (42-52); HEMOGLOBIN 9.3 g/dL (14.0-18.0); IG# 0.02 K/uL (0.00-0.02); LYMPH % 31.6 %; LYMPH ABS # 2.44 K/uL (1.2-3.4); MEAN CORPUSCULAR HEMOGLOBIN 26.4 pg (25-34); MEAN CORPUSCULAR HGB CONC 33.5 g/dl (32-36); MEAN PLATELET VOLUME 8.8 fL (7.4-10.4); MONO % 13.9 %; MONO ABS # 1.07 K/uL (0.11-0.59); NEUT % 51.9 %; NEUT ABS # 4.01 K/uL (1.4-6.5); PLATELET COUNT 383 K/uL (130-400); RED CELL DISTRIBUTION WIDTH CV 16.5 % (11.5-14.5); RED CELL DISTRIBUTION WIDTH SD 47.7 fL (36.4-46.3); WHITE BLOOD COUNT 7.72 K/uL (4.8-10.8)
[2017-10-22] MEDS: MAGNESIUM OXIDE 400 MG TAB PO SCH ×2 (08:21→21:30)
[2017-10-22] MEDS: SODIUM BICARBONATE 650 MG TAB PO SCH ×2 (08:21→21:37)
[2017-10-22] MEDS: CETIRIZINE HCL 10 MG TAB PO SCH (08:22)
[2017-10-22] MEDS: METOPROLOL TARTRATE 50 MG TAB PO SCH ×2 (08:22→21:30)
[2017-10-22] MEDS: PANTOprazole SOD 40 MG TAB PO SCH ×2 (08:22→21:28)
[2017-10-22] MEDS: AMLODIPINE BESYLATE 5 MG TAB PO SCH (08:23)
[2017-10-22] MEDS: FINASTERIDE 5 MG TAB PO SCH (08:24)
[2017-10-22] MEDS: TAMSULOSIN HCL 0.4 MG CAP PO SCH ×2 (08:24→21:29)
[2017-10-22] MEDS: SACCHAROMYCES BOUL (FLORASTOR) 250 MG CAP PO SCH (08:25)
[2017-10-22 08:37] LABS: CALCIUM 7.5 mg/dl (8.5-10.1); CREATININE 1.31 mg/dl (0.60-1.40); POTASSIUM 3.2 mmol/L (3.5-5.1)
[2017-10-22] MEDS ORDERED: MAGNESIUM SULFATE 1GM / D5W 1 GM in PREMIXED IN D5W 100 ML IV STA (10:42)
[2017-10-22] MEDS ORDERED: POTASSIUM CHLORIDE 10 MEQ TABCR PO STA (10:42)
--- NOTE | 2017-10-22 11:05 | Progress Note ---
Subjective Date of Service: Oct 22, 2017. Subjective isolated fever 38.3 overnight, currently afebrile. bronch cultures negative, bronch HSV negative, AFB and fingal smear negative, psa nml, wbc nml. all previous cultures negative as well with exception of c diff, remain on po vanco. spoke with primary service, zosyn stopped, ? b lactam as course for fever , was previously on ctx. no overnight events. Problem List Medical Problems: (1) Acute renal failure Status: Acute (2) Hyperbilirubinemia Status: Acute (3) Leukocytosis Status: Acute (4) UTI (urinary tract infection) Status: Acute Objective Vital Signs Date Time Temp Pulse Resp B/P (MAP) Pulse Ox O2 Delivery O2 Flow Rate FiO2 10/22/17 07:02 37.2 90 18 145/73 (97) 99 Nasal Cannula 2.0 10/22/17 00:00 Nasal Cannula 2.0 10/21/17 23:28 38.3 86 16 132/65 (87) 100 Nasal Cannula 2.0 10/21/17 21:11 96 144/72 (96) 10/21/17 16:00 97 Nasal Cannula 2.0 10/21/17 15:27 36.9 84 16 119/48 (71) 97 Nasal Cannula 2.0 Laboratory Results Item Value Date Time Blood Culture - Final Complete 10/16/17 0430 Blood NO GROWTH Blood Culture - Final Complete 10/16/17 0430 Blood NO GROWTH Gram Stain - Final Complete 10/19/17 0942 Bronchial Washings Right & Left Lower Lobe Last 24 Hours Test 10/21/17 11:17 10/21/17 16:35 10/21/17 20:20 10/22/17 07:00 Bedside Glucose 113 mg/dl 97 mg/dl 116 mg/dl 82 mg/dl Test 10/22/17 07:40 10/22/17 10:36 White Blood Count 7.72 K/uL Red Blood Count 3.52 M/uL Hemoglobin 9.3 g/dL Hematocrit 27.8 % Mean Corpuscular Volume 79.0 fL Mean Corpuscular Hemoglobin 26.4 pg Mean Corpuscular Hemoglobin Concent 33.5 g/dl Platelet Count 383 K/uL Mean Platelet Volume 8.8 fL Neutrophils (%) (Auto) 51.9 % Lymphocytes (%) (Auto) 31.6 % Monocytes (%) (Auto) 13.9 % Eosinophils (%) (Auto) 2.2 % Basophils (%) (Auto) 0.1 % Neutrophils # (Auto) 4.01 K/uL Lymphocytes # (Auto) 2.44 K/uL Monocytes # (Auto) 1.07 K/uL Eosinophils # (Auto) 0.17 K/uL Basophils # (Auto) 0.01 K/uL RDW Standard Deviation 47.7 fL RDW Coefficient of Variation 16.5 % Immature Granulocyte % (Auto) 0.3 % Immature Granulocyte # (Auto) 0.02 K/uL Sodium Level 139 mmol/L Potassium Level 3.2 mmol/L Chloride Level 107 mmol/L Carbon Dioxide Level 25 mmol/L Anion Gap 7.0 mmol/L Blood Urea Nitrogen 6 mg/dl Creatinine 1.31 mg/dl Est Creatinine Clear Calc Drug Dose 49.5 ml/min Estimated GFR () 61.7 Estimated GFR (Non- 53.3 BUN/Creatinine Ratio 4.9 Random Glucose 85 mg/dl Calcium Level 7.5 mg/dl Phosphorus Level 2.0 mg/dl Magnesium Level 1.7 mg/dl Assessment and Plan (1) C. difficile colitis Assessment & Plan: Continue vancomycin at current dose. I would suggest a 21 day course of oral vancomycin to treat C diff. (2) Fever Assessment & Plan: ? b lactam induced, now off of zosyn, follow fever curve, overall better. still with hip pain, ? ct to eval as source if persists Continued [facility] stay due to: home environment unsafe for pt Discharge planning: other Problem Qualifiers (1) Fever: Fever type: unspecified Qualified Codes: R50.9 - Fever, unspecified
[2017-10-22 11:09] VITALS: TEMP 37.8
[2017-10-22] MEDS ORDERED: OPTIRAY 320 IV PRN (11:45)
--- NOTE | 2017-10-22 12:07 | DIAGNOSTIC IMAGING REPORT ---
LEFT HIP CT CT DOSE: 194.18 mGy.cm HISTORY: left hip pain , spiking fever of unknown source, TECHNIQUE: Multiaxial CT images of the left hip were performed and reformatted in the sagittal and coronal plane without the use of contrast. A dose lowering technique was utilized adhering to the principles of ALARA. COMPARISON: Abdomen and pelvis CT 10/19/2017. FINDINGS: There is subcutaneous edema along the left hip. No loculated fluid collections identified to suggest an abscess. No significant left hip effusion. There is a Hamm catheter within the bladder. Mild presacral edema. Colonic diverticulosis. No fracture or dislocation within the left hip. Severe osteoarthritis within the left hip demonstrated by cartilage space narrowing, [id number]-[id number] articulation, subchondral sclerosis, and subchondral cystic change. Small arches visualized carotid focus within the left iliac wing remains stable. IMPRESSION: 1. No fracture or dislocation within the left hip. 2. Severe left hip osteoarthritis is again noted. 3. Subcutaneous edema throughout the left hip. No loculated fluid collections to suggest an abscess. Electronically signed by: Joel Ring M.D. 10/22/2017 12:05 PM Dictated Date/Time: 10/22/2017 11:47 AM
[2017-10-22] MEDS: ASPIRIN 81 MG CHEW PO SCH (12:37)
[2017-10-22 14:22] VITALS: BP 116/66; PULSE 79; TEMP 37.4; O2SAT 97
--- NOTE | 2017-10-22 14:43 | Progress Note ---
Subjective Date of Service: Oct 22, 2017. Subjective Pt evaluation today including: conversation w/ patient, physical exam, chart review, lab review, review of studies, conversation w/ physician practice consultant, review of inpatient medication list Still spiking fever at midnight, otherwise generally doing fair, decreased appetite, eating voiding good, has Hamm catheters, has one time bowel movement , and two time bowel movement yesterday, yesterday and today both reported left hip pain, radiation down to left lower extremity, associated with pain when raising, denies open wound, denies palpitations, Problem List Medical Problems: (1) Acute renal failure Status: Acute (2) Hyperbilirubinemia Status: Acute (3) Leukocytosis Status: Acute (4) UTI (urinary tract infection) Status: Acute Review of Systems Constitutional: + fever, + weight loss, + weakness, + fatigue Eyes: No see HPI, No worsening of vision, No eye pain, No redness, No discharge , No diplopia, No problem reported ENT: No see HPI, No hearing loss, No unusual epistaxis, No nasal symptoms, No sore throat, No tinnitus, No dental problems, No trouble swallowing, No problem reported Respiratory: No see HPI, No cough, No sputum, No wheezing, No shortness of breath, No dyspnea on exertion, No dyspnea at rest, No hemoptysis, No problem reported Cardiac: No see HPI, No chest pain, No orthopnea, No PND, No edema, No claudication, No palpitations, No problem reported Abdomen: No see HPI, No pain, No nausea, No vomiting, No diarrhea, No constipation, No GI bleeding, No problem reported Musculoskeletal: + joint pain Male : No see HPI, No dysuria, No urinary frequency, No incontinence, No nocturia more than once/night, No slowing stream, No hematuria, No sexual dysfunction, No problem reported Neurologic: No see HPI, No memory loss, No paralysis, No weakness, No numbness/ tingling, No vertigo, No balance problems, No problem reported Psychiatric: No see HPI, No depression symptoms, No anhedonism, No anxiety, No insomnia, No substance abuse, No problem reported Heme: No see HPI, No abnormal bleeding/bruising, No clotting problems, No swollen lymph nodes, No night sweats, No problem reported Endo: No see HPI, No fatigue, No excessive thirst, No excessive urination, No problem reported Skin: + problem reported (Superficial skin breakdown in the left buttock area which is in dress) Objective Vital Signs Date Time Temp Pulse Resp B/P (MAP) Pulse Ox O2 Delivery O2 Flow Rate FiO2 10/22/17 14:22 37.4 79 18 116/66 (83) 97 Room Air 10/22/17 11:09 37.8 10/22/17 11:08 Nasal Cannula 2.0 10/22/17 07:02 37.2 90 18 145/73 (97) 99 Nasal Cannula 2.0 10/22/17 00:00 Nasal Cannula 2.0 10/21/17 23:28 38.3 86 16 132/65 (87) 100 Nasal Cannula 2.0 10/21/17 21:11 96 144/72 (96) 10/21/17 16:00 97 Nasal Cannula 2.0 10/21/17 15:27 36.9 84 16 119/48 (71) 97 Nasal Cannula 2.0 Physical Exam General Appearance: WD/WN, + cachetic, + thin Eyes: normal inspection, PERRL, EOMI ENT: normal ENT inspection, hearing grossly normal, TMs normal Neck: supple, no adenopathy, thyroid normal Respiratory/Chest: chest non-tender, lungs clear, + decreased breath sounds Cardiovascular: regular rate, rhythm, no edema, no gallop, no JVD Abdomen: normal bowel sounds, non tender, soft, no organomegaly Extremities: no pedal edema, + pertinent finding (Left hip area mild pain associated with limited range of motion because of the pain) 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: otm consultant II-XII nml as tested, no motor/sensory deficits, alert Skin: normal color, warm/dry, no rash, + pertinent finding (Superficial skin breakdown in the left buttock area which is in dress, there is no drainage use,) Laboratory Results Last 24 Hours Test 10/21/17 16:35 10/21/17 20:20 10/22/17 07:00 10/22/17 07:40 Bedside Glucose 97 mg/dl 116 mg/dl 82 mg/dl White Blood Count 7.72 K/uL Red Blood Count 3.52 M/uL Hemoglobin 9.3 g/dL Hematocrit 27.8 % Mean Corpuscular Volume 79.0 fL Mean Corpuscular Hemoglobin 26.4 pg Mean Corpuscular Hemoglobin Concent 33.5 g/dl Platelet Count 383 K/uL Mean Platelet Volume 8.8 fL Neutrophils (%) (Auto) 51.9 % Lymphocytes (%) (Auto) 31.6 % Monocytes (%) (Auto) 13.9 % Eosinophils (%) (Auto) 2.2 % Basophils (%) (Auto) 0.1 % Neutrophils # (Auto) 4.01 K/uL Lymphocytes # (Auto) 2.44 K/uL Monocytes # (Auto) 1.07 K/uL Eosinophils # (Auto) 0.17 K/uL Basophils # (Auto) 0.01 K/uL RDW Standard Deviation 47.7 fL RDW Coefficient of Variation 16.5 % Immature Granulocyte % (Auto) 0.3 % Immature Granulocyte # (Auto) 0.02 K/uL Sodium Level 139 mmol/L Potassium Level 3.2 mmol/L Chloride Level 107 mmol/L Carbon Dioxide Level 25 mmol/L Anion Gap 7.0 mmol/L Blood Urea Nitrogen 6 mg/dl Creatinine 1.31 mg/dl Est Creatinine Clear Calc Drug Dose 49.5 ml/min Estimated GFR () 61.7 Estimated GFR (Non- 53.3 BUN/Creatinine Ratio 4.9 Random Glucose 85 mg/dl Calcium Level 7.5 mg/dl Phosphorus Level 2.0 mg/dl Magnesium Level 1.7 mg/dl Prealbumin 11.1 mg/dl Test 10/22/17 11:49 Bedside Glucose 97 mg/dl Assessment and Plan 72 yo M was admitted to [facility] from 09/17-10/03 for urosepsis due to pansentivie Ecoli and prostatitis, acute renal failure and elevated LFTs. He was discharged on IV ceftriaxone for another 20 days for prostatitis. He was readmitted on October 07, 2017, because of spiking fever and generalized weakness PMHx of hepatitis A, HTN, BPH, osteoarthritis, who was recently Fever of unknown origin, possibly related to cdiff however continues to spike temps despite several days of vanco, Bronch 3/6 noted for chronic mucopurulent bronchitis but no acute infections, path pending, b lactam induced fever, continue oral Vanco,oral vanco can be totally 21 days, left hip CT studies was done today, has rule out any underlying abscess, Request cardiology consult possible need to move forward for KAREEM to rule out endocarditis, discussed with Dr. Bishop, available timing for KAREEM possible on Wednesday hx of Prostatitis, PSA less than 2, patient has no local symptoms C diff colitis: Continue Vanco PO for cdiff, total will be 21 days , last day will be October 30, 2017 less like HCAP Recent GI bleed with gastric ulcer: Hb has been trending down, no s/sx of bleeding, Iron, B12, folate WNL, EGD on that admission showed a non-bleeding ulcer Recent SONY, ATN: Cr has improved since last admission, down to 1.3, adequate UOP Transaminitis: resolved, supporting diagnosis of hepatitis due to sepsis from last admission - Left leg pain, an dleft hip pain : negative for DVT,/abscess, pain controlled HTN, BPH, Hx hepatitis A DVT ppx: Teds, scd, heparin subq CODE STATUS: DNR [facility] Continued [facility] stay due to: home environment unsafe for pt Discharge planning: other
[2017-10-22] MEDS: BOOST GLUCOSE CONTROL PO SCH (17:06)
[2017-10-22 20:06] VITALS: BP 130/65; PULSE 100; TEMP 37.4; O2SAT 99
[2017-10-22] MEDS: LOVASTATIN 20 MG TAB PO SCH (21:37)
[2017-10-22 23:15] VITALS: BP 145/75; PULSE 100; TEMP 37.8; O2SAT 99
[2017-10-23] MEDS: RASPBERRY SYRUP 5 ML UDP PO SCH ×4 (00:15→18:14)
[2017-10-23] MEDS: ACETAMINOPHEN 325 MG TAB PO PRN ×3 (00:15→20:08)
[2017-10-23] MEDS: VANCOMYCIN HCL 250 MG/5 ML SOLN PO SCH ×4 (00:15→18:14)
[2017-10-23] MEDS: HYDROmorphone INJ 1 MG/ML SYR IV PRN ×3 (01:39→14:02)
[2017-10-23 08:04] VITALS: BP 132/67; PULSE 88; TEMP 37.9; O2SAT 99
[2017-10-23] MEDS: BOOST GLUCOSE CONTROL PO SCH ×2 (08:27→17:16)
[2017-10-23] MEDS: ASPIRIN 81 MG CHEW PO SCH (08:32)
[2017-10-23] MEDS: SODIUM BICARBONATE 650 MG TAB PO SCH ×2 (08:33→20:23)
[2017-10-23] MEDS: CETIRIZINE HCL 10 MG TAB PO SCH (08:33)
[2017-10-23] MEDS: PANTOprazole SOD 40 MG TAB PO SCH ×2 (08:34→20:30)
[2017-10-23] MEDS: METOPROLOL TARTRATE 50 MG TAB PO SCH ×2 (08:35→20:09)
[2017-10-23] MEDS: AMLODIPINE BESYLATE 5 MG TAB PO SCH (08:36)
[2017-10-23] MEDS: SACCHAROMYCES BOUL (FLORASTOR) 250 MG CAP PO SCH (08:36)
[2017-10-23] MEDS: FINASTERIDE 5 MG TAB PO SCH (08:36)
[2017-10-23] MEDS: INSULIN ASPART 100 UNITS/ML 3 ML PEN SC SCH ×4 (08:47→21:18)
[2017-10-23] MEDS: MAGNESIUM OXIDE 400 MG TAB PO SCH ×2 (09:00→20:23)
[2017-10-23] MEDS: TAMSULOSIN HCL 0.4 MG CAP PO SCH ×2 (09:00→20:09)
--- NOTE | 2017-10-23 11:12 | Cardiology Consultation ---
Cardiology Consultation Date of Consultation: Oct 23, 2017. Reason for Consultation: Possible KAREEM Social History Smoking Status: Never Smoker History of Alcohol Use: No Review of Systems Respiratory: No see HPI, No cough, No sputum, No wheezing, No shortness of breath, No dyspnea on exertion, No dyspnea at rest, No hemoptysis, No problem reported Cardiac: No see HPI, No chest pain, No orthopnea, No PND, No edema, No claudication, No palpitations, No problem reported Allergies Coded Allergies: No Known Allergies (Unverified , 09/17/17) Medications Current Inpatient Medications Medications (Trade) Dose Ordered Sig/Candelaria Route Start Time Stop Time Status Last Admin Dose Admin Ondansetron HCl (Zofran Inj) 4 mg Q6H PRN IV 10/05/17 15:15 11/04/17 15:14 Polyethylene (Miralax Powder Packet) 17 gm DAILY PRN PO 10/05/17 15:15 11/04/17 15:14 Amlodipine Besylate (Norvasc Tab) 10 mg DAILY PO 10/06/17 09:00 11/05/17 08:59 10/23/17 08:36 10 MG Aspirin (Aspirin Chew) 81 mg DAILY PO 10/06/17 09:00 11/05/17 08:59 10/23/17 08:32 81 MG Cetirizine HCl (zyrTEC TAB) 10 mg DAILY PO 10/06/17 09:00 11/05/17 08:59 10/23/17 08:33 10 MG Finasteride (Proscar Tab) 5 mg DAILY PO 10/06/17 09:00 11/05/17 08:59 10/23/17 08:36 5 MG Hydralazine HCl (Apresoline Tab) 50 mg TID PO 10/05/17 21:00 11/04/17 20:59 10/23/17 08:35 50 MG Lovastatin (Mevacor Tab) 20 mg HS PO 10/05/17 21:00 11/04/17 20:59 10/22/17 21:37 20 MG Metoprolol Tartrate (Lopressor Tab) 50 mg BID PO 10/05/17 21:00 11/04/17 20:59 10/23/17 08:35 50 MG Pantoprazole Sodium (Protonix Tab) 40 mg BID PO 10/05/17 21:00 11/04/17 20:59 10/23/17 08:34 40 MG Sodium Bicarbonate (Sodium Bicarbonate Tab) 1,300 mg BID PO 10/05/17 21:00 11/04/17 20:59 10/23/17 08:33 1,300 MG Tamsulosin HCl (Flomax Cap) 0.4 mg BID PO 10/05/17 21:00 11/04/17 20:59 10/23/17 09:00 0.4 MG Miscellaneous (Iv Fluids Completed) 1 ea PRN PRN N/A 10/05/17 15:45 10/05/18 15:44 Glucose (Glucose 40% Gel) 15-30 GRAMS 15 GRAMS... UD PRN PO 10/05/17 23:30 11/04/17 23:29 Glucose (Glucose Chew Tab) 4-8 Tablets 4 Tabl... UD PRN PO 10/05/17 23:30 11/04/17 23:29 Dextrose (Dextrose 50% 50ML Syringe) 25-50ML OF 50% DW IV FOR... UD PRN IV 10/05/17 23:30 11/04/17 23:29 Glucagon (Glucagon Inj) 1 mg UD PRN SQ 10/05/17 23:30 11/04/17 23:29 Insulin Aspart (novoLOG ASPART) SLIDING SCALE ACHS SC 10/06/17 07:00 11/05/17 00:00 10/17/17 21:54 2 UNITS Albuterol/ Ipratropium (Duoneb) 3 ml QIDR PRN INH 10/09/17 12:00 11/04/17 19:59 Hydromorphone HCl (Dilaudid Inj) 1 mg Q4 PRN IV 10/09/17 18:00 10/23/17 17:59 10/23/17 06:25 1 MG Vancomycin HCl (Vancomycin Oral Soln) 250 mg Q6 PO 10/10/17 12:00 10/23/17 19:59 10/23/17 06:25 250 MG Raspberry (Raspberry Syrup 5ml Cup) 5 ml Q6 PO 10/10/17 12:00 10/24/17 11:59 10/23/17 06:24 5 ML Acetaminophen (Tylenol Tab) 650 mg Q4H PRN PO 10/15/17 01:45 11/14/17 01:44 10/23/17 08:33 650 MG Saccharomyces Boulardii (Florastor Cap) 250 mg DAILY PO 10/16/17 09:00 11/15/17 08:59 10/23/17 08:36 250 MG Magnesium Oxide (Mag-Ox Tab) 400 mg BID PO 10/21/17 21:00 11/20/17 20:59 10/23/17 09:00 400 MG Ioversol (Optiray 320) 111 ml UD PRN IV 10/22/17 11:45 10/26/17 11:44 Enteral Nutritional Formula (Boost Glucose Control) 1 can BIDM PO 10/22/17 17:00 11/21/17 16:59 10/23/17 08:27 1 CAN Physical Exam Vital Signs Past 12 Hours Date Time Temp Pulse Resp B/P (MAP) Pulse Ox O2 Delivery O2 Flow Rate FiO2 10/23/17 08:04 37.9 88 18 132/67 (88) 99 Nasal Cannula 1.5 10/23/17 00:30 Nasal Cannula 2.0 10/22/17 23:15 37.8 100 18 145/75 (98) 99 Nasal Cannula 2.0 Data Laboratory Results: Last 24 Hours Test 10/22/17 11:49 10/22/17 16:35 10/22/17 20:03 10/23/17 08:08 Bedside Glucose 97 mg/dl 100 mg/dl 129 mg/dl 96 mg/dl Imaging: EKG: Telemetry reviewed: Assessment & Plan If ID feels KAREEM is indicated we can plan for Wednesday, we can't do over the weekend. Echo 10/20 negative for vegetation.
--- NOTE | 2017-10-23 11:29 | Progress Note ---
Subjective Date of Service: Oct 23, 2017. Subjective Pt evaluation today including: conversation w/ patient Pt with ongoing weakness and fevers. Overnight fever was less than prior. Bowels are returning to normal. Less diarrhea. Pt denies SOB, chest pain, abd pain, n/v, LE pain or swelling. Problem List Medical Problems: (1) Acute renal failure Status: Acute (2) Hyperbilirubinemia Status: Acute (3) Leukocytosis Status: Acute (4) UTI (urinary tract infection) Status: Acute Review of Systems All Other Systems: Reviewed and Negative Objective Vital Signs Date Time Temp Pulse Resp B/P (MAP) Pulse Ox O2 Delivery O2 Flow Rate FiO2 10/23/17 08:04 37.9 88 18 132/67 (88) 99 Nasal Cannula 1.5 10/23/17 00:30 Nasal Cannula 2.0 10/22/17 23:15 37.8 100 18 145/75 (98) 99 Nasal Cannula 2.0 10/22/17 20:06 37.4 100 18 130/65 (86) 99 Nasal Cannula 2.0 10/22/17 16:30 Nasal Cannula 2.0 10/22/17 14:22 37.4 79 18 116/66 (83) 97 Room Air Physical Exam General Appearance: WD/WN, no apparent distress Eyes: normal inspection, sclerae normal Respiratory/Chest: normal breath sounds, no respiratory distress Cardiovascular: regular rate, rhythm, no edema Abdomen: non tender, soft Extremities: non-tender, no pedal edema 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: alert, normal mood/affect, oriented x 3 Skin: normal color, warm/dry Laboratory Results Last 24 Hours Test 10/22/17 11:49 10/22/17 16:35 10/22/17 20:03 10/23/17 08:08 Bedside Glucose 97 mg/dl 100 mg/dl 129 mg/dl 96 mg/dl Assessment and Plan 72 yo M was admitted to [facility] from 09/17-10/03 for urosepsis due to pansentivie Ecoli and prostatitis, acute renal failure and elevated LFTs. He was discharged on IV ceftriaxone for another 20 days for prostatitis. He was readmitted on October 07, 2017, because of spiking fever and generalized weakness PMHx of hepatitis A, HTN, BPH, osteoarthritis, who was recently Fever of unknown origin, possibly related to cdiff however continues to spike temps despite several days of vanco, Bronch 3/ noted for chronic mucopurulent bronchitis but no acute infections, cx is + for cristino. Will discuss with ID as possible source of fevers vs contaminant b lactam induced fever, continue oral Vanco,oral vanco can be totally 21 days, left hip CT studies was done today, has rule out any underlying abscess, KAREEM possibly on Wednesday hx of Prostatitis, PSA less than 2, patient has no local symptoms C diff colitis: Continue Vanco PO for cdiff, total 21 days with last day 10/30 less likely HCAP Recent GI bleed with gastric ulcer: Hb has been trending down, no s/sx of bleeding, Iron, B12, folate WNL, EGD on that admission showed a non-bleeding ulcer Recent SONY, ATN: Cr has improved since last admission, down to 1.3, adequate UOP Transaminitis: resolved, supporting diagnosis of hepatitis due to sepsis from last admission - Left leg pain, an dleft hip pain : negative for DVT,/abscess, pain controlled Moderate to severe protein malnutrition with prealbumin 11, as requested dietitian consult HTN, BPH, Hx hepatitis A DVT ppx: Teds, scd, heparin subq CODE STATUS: DNR [email or web address] Continued [facility] stay due to: home environment unsafe for pt Discharge planning: other
[2017-10-23 15:32] VITALS: BP 124/64; PULSE 88; TEMP 37.6; O2SAT 99
[2017-10-23] MEDS ORDERED: NURSING VERBAL MED ORDER ONE (18:45)
[2017-10-23] MEDS: OXYCODONE/ACETAMINOPHEN 5-325 TAB PO PRN (20:09)
[2017-10-23] MEDS: LOVASTATIN 20 MG TAB PO SCH (23:18)
[2017-10-23 23:24] VITALS: BP 121/61; PULSE 75; TEMP 37.5; O2SAT 99
[2017-10-24] MEDS: RASPBERRY SYRUP 5 ML UDP PO SCH ×5 (00:52→23:21)
[2017-10-24] MEDS: VANCOMYCIN HCL 250 MG/5 ML SOLN PO SCH ×5 (00:53→23:21)
[2017-10-24] MEDS: OXYCODONE/ACETAMINOPHEN 5-325 TAB PO PRN ×3 (06:45→21:52)
[2017-10-24 06:51] VITALS: BP 139/61; PULSE 91; TEMP 37; O2SAT 99
[2017-10-24] MEDS: ASPIRIN 81 MG CHEW PO SCH (08:00)
[2017-10-24] MEDS: INSULIN ASPART 100 UNITS/ML 3 ML PEN SC SCH ×4 (08:25→21:03)
[2017-10-24] MEDS: BOOST GLUCOSE CONTROL PO SCH ×2 (08:25→17:45)
[2017-10-24] MEDS: SODIUM BICARBONATE 650 MG TAB PO SCH ×2 (08:25→19:54)
[2017-10-24] MEDS: AMLODIPINE BESYLATE 5 MG TAB PO SCH (08:26)
[2017-10-24] MEDS: TAMSULOSIN HCL 0.4 MG CAP PO SCH ×2 (08:26→19:53)
[2017-10-24] MEDS: FINASTERIDE 5 MG TAB PO SCH (08:26)
[2017-10-24] MEDS: METOPROLOL TARTRATE 50 MG TAB PO SCH ×2 (08:27→21:53)
[2017-10-24] MEDS: MAGNESIUM OXIDE 400 MG TAB PO SCH ×2 (08:27→19:54)
[2017-10-24] MEDS: SACCHAROMYCES BOUL (FLORASTOR) 250 MG CAP PO SCH (08:27)
[2017-10-24] MEDS: CETIRIZINE HCL 10 MG TAB PO SCH (08:34)
[2017-10-24] MEDS: PANTOprazole SOD 40 MG TAB PO SCH ×2 (08:34→19:54)
[2017-10-24 11:38] VITALS: O2SAT 94
--- NOTE | 2017-10-24 11:41 | Progress Note ---
Subjective Date of Service: Oct 24, 2017. Subjective Pt evaluation today including: conversation w/ patient Pt is unchanged. He did have a bit of diarrhea yesterday, but not today. Ongoing weakness. Has been off of O2 and not SOB, but mostly in bed. Tolerating PO without issue. Pt denies fever, chest pain, abd pain, n/v, LE pain or swelling. Problem List Medical Problems: (1) Acute renal failure Status: Acute (2) Hyperbilirubinemia Status: Acute (3) Leukocytosis Status: Acute (4) UTI (urinary tract infection) Status: Acute Review of Systems All Other Systems: Reviewed and Negative Objective Vital Signs Date Time Temp Pulse Resp B/P (MAP) Pulse Ox O2 Delivery O2 Flow Rate FiO2 10/24/17 08:00 Room Air 10/24/17 06:51 37.0 91 18 139/61 (87) 99 Nasal Cannula 2.0 10/24/17 00:20 Nasal Cannula 2.0 10/23/17 23:24 37.5 75 18 121/61 (81) 99 Nasal Cannula 2.0 10/23/17 20:30 Nasal Cannula 2.0 10/23/17 16:00 Nasal Cannula 2.0 10/23/17 15:32 37.6 88 18 124/64 (84) 99 Room Air Physical Exam Comments: General Appearance: WD/WN, no apparent distress Eyes: normal inspection, sclerae normal Respiratory/Chest: normal breath sounds, no respiratory distress Cardiovascular: regular rate, rhythm, no edema Abdomen: non tender, soft Extremities: non-tender, no pedal edema 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: alert, normal mood/affect, oriented x 3 Skin: normal color, warm/dry Laboratory Results Last 24 Hours Test 10/23/17 12:07 10/23/17 16:45 10/23/17 20:02 10/24/17 08:03 Bedside Glucose 95 mg/dl 103 mg/dl 111 mg/dl 86 mg/dl Assessment and Plan 72 yo M was admitted to [facility] from 09/17-10/03 for urosepsis due to pansentivie Ecoli and prostatitis, acute renal failure and elevated LFTs. He was discharged on IV ceftriaxone for another 20 days for prostatitis. He was readmitted on October 07, 2017, because of spiking fever and generalized weakness PMHx of hepatitis A, HTN, BPH, osteoarthritis, who was recently Fever of unknown origin, possibly related to cdiff however continues to spike temps despite several days of vanco--decreased temp overall however Bronch 3/ noted for chronic mucopurulent bronchitis but no acute infections, cx is + for cristino. ID does not feel that this is the source of fevers given cristino PNA pts are generally much more ill without tx for this long. ?? b lactam induced fever, however fevers have persisted despite d/c continue oral Vanco, total [address] studiy neg KAREEM possibly on Wednesday hx of Prostatitis, PSA less than 2, patient has no local symptoms C diff colitis: Continue Vanco PO for cdiff, total 21 days with last day 10/30 less likely HCAP Recent GI bleed with gastric ulcer: Hb has been trending down, no s/sx of bleeding, Iron, B12, folate WNL, EGD on that admission showed a non-bleeding ulcer Recent SONY, ATN: Cr has improved since last admission, down to 1.3, adequate UOP Transaminitis: resolved, supporting diagnosis of hepatitis due to sepsis from last admission - Left LE/left hip pain : negative for DVT/abscess, pain controlled Moderate to severe protein malnutrition with prealbumin 11, as requested dietitian consult HTN, BPH, Hx hepatitis A DVT ppx: Teds, scd, heparin subq CODE STATUS: DNR Disposition: From [facility] Continued [facility] stay due to: home environment unsafe for pt Discharge planning: other
[2017-10-24 16:08] VITALS: BP 118/62; PULSE 94; TEMP 38.2; O2SAT 94
[2017-10-24] MEDS: ACETAMINOPHEN 325 MG TAB PO PRN (19:48)
[2017-10-24 21:51] VITALS: BP 133/81; PULSE 77
[2017-10-24] MEDS: LOVASTATIN 20 MG TAB PO SCH (21:54)
[2017-10-24 22:33] VITALS: BP 120/63; PULSE 88; TEMP 37.6; O2SAT 96
[2017-10-25] MEDS: RASPBERRY SYRUP 5 ML UDP PO SCH ×4 (05:36→23:44)
[2017-10-25] MEDS: VANCOMYCIN HCL 250 MG/5 ML SOLN PO SCH ×4 (05:36→23:44)
[2017-10-25] MEDS: OXYCODONE/ACETAMINOPHEN 5-325 TAB PO PRN ×3 (05:41→23:47)
[2017-10-25] MEDS: SODIUM BICARBONATE 650 MG TAB PO SCH ×2 (07:44→20:39)
[2017-10-25] MEDS: PANTOprazole SOD 40 MG TAB PO SCH ×2 (07:44→20:38)
[2017-10-25] MEDS: SACCHAROMYCES BOUL (FLORASTOR) 250 MG CAP PO SCH (07:44)
[2017-10-25] MEDS: CETIRIZINE HCL 10 MG TAB PO SCH (07:44)
[2017-10-25] MEDS: ASPIRIN 81 MG CHEW PO SCH (07:44)
[2017-10-25] MEDS: METOPROLOL TARTRATE 50 MG TAB PO SCH ×2 (07:44→20:38)
[2017-10-25] MEDS: BOOST GLUCOSE CONTROL PO SCH ×2 (07:45→17:39)
[2017-10-25] MEDS: MAGNESIUM OXIDE 400 MG TAB PO SCH ×2 (07:45→20:38)
[2017-10-25] MEDS: AMLODIPINE BESYLATE 5 MG TAB PO SCH (07:45)
[2017-10-25] MEDS: FINASTERIDE 5 MG TAB PO SCH (07:45)
[2017-10-25] MEDS: TAMSULOSIN HCL 0.4 MG CAP PO SCH ×2 (07:45→20:38)
[2017-10-25 08:15] VITALS: BP 126/54; PULSE 93; TEMP 37.9; O2SAT 95
[2017-10-25] MEDS: INSULIN ASPART 100 UNITS/ML 3 ML PEN SC SCH ×4 (08:47→22:00)
--- NOTE | 2017-10-25 10:41 | Progress Note ---
Subjective Date of Service: Oct 25, 2017. Subjective Pt evaluation today including: conversation w/ patient, physical exam, chart review, lab review, conversation w/ internal controls consultant pt seen in followup, for KAREEM this am. TTE negative, all blood cultures negative. still with fevers, tmax 38.2. No rigors. still with left hip pain, ct done 10/22 - negative except for OA, non contrast. remains on vanco for c diff. all additional abx stopped as cultures negative and concern for b lactam induced fever. pt denies cp, cough, sob, n/v/d/abd pain. all remaining ros reviewed and are negative Problem List Medical Problems: (1) Acute renal failure Status: Acute (2) Hyperbilirubinemia Status: Acute (3) Leukocytosis Status: Acute (4) UTI (urinary tract infection) Status: Acute Objective Vital Signs Date Time Temp Pulse Resp B/P (MAP) Pulse Ox O2 Delivery O2 Flow Rate FiO2 10/25/17 08:30 Room Air 10/25/17 08:15 37.9 93 16 126/54 (78) 95 Room Air 10/25/17 00:20 Room Air 10/24/17 22:33 37.6 88 16 120/63 (82) 96 Nasal Cannula 2.0 10/24/17 21:51 77 133/81 (98) 10/24/17 20:10 Room Air 10/24/17 16:08 38.2 94 18 118/62 (80) 94 Room Air 10/24/17 16:00 Room Air 10/24/17 11:38 94 Room Air Physical Exam General Appearance: WD/WN, no apparent distress Eyes: normal inspection, EOMI Neck: supple Respiratory/Chest: lungs clear, normal breath sounds, no respiratory distress Cardiovascular: regular rate, rhythm, no edema Abdomen: non tender, soft Extremities: non-tender, no pedal edema 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: alert, oriented x 3 Skin: normal color Laboratory Results Item Value Date Time Blood Culture - Preliminary Resulted 10/22/17 0141 Blood NO GROWTH TO DATE. Blood Culture - Preliminary Resulted 10/22/17 0135 Blood NO GROWTH TO DATE. Last 24 Hours Test 10/24/17 11:34 10/24/17 16:44 10/24/17 19:45 10/25/17 06:10 Bedside Glucose 89 mg/dl 97 mg/dl 95 mg/dl 99 mg/dl Test 10/25/17 07:57 Bedside Glucose 91 mg/dl Assessment and Plan (1) C. difficile colitis Assessment & Plan: Continue vancomycin at current dose. I would suggest a 21 day course of oral vancomycin to treat C diff. (2) Fever Assessment & Plan: hip imaging negative. Await KAREEM, repeat blood cultures negative. consider ue doppler r/o clot although no abnml on exam, discussed with primary Continued [facility] stay due to: home environment unsafe for pt Discharge planning: other Problem Qualifiers (1) Fever: Fever type: unspecified Qualified Codes: R50.9 - Fever, unspecified
--- NOTE | 2017-10-25 11:39 | Hospitalist Progress Note ---
Hospitalist Progress Note Date of Service Oct 25, 2017. Subjective Pt evaluation today including: conversation w/ patient, physical exam, lab review, review of studies, review of inpatient medication list Voiding: vega catheter in place Patient resting in bed. Eating and drinking OK. +fever/chills. +weakness. Patient denies any sweats, lightheadedness, dizziness, vision changes, CP, palpitations, edema, SOB, wheezing, cough, abdominal pain, nausea, vomiting, diarrhea, urinary symptoms, melena, numbness/tingling, muscle/joint pain, anxiety/depression, active bleeding, or new skin discoloration/changes. Medications Current Inpatient Medications Medications (Trade) Dose Ordered Sig/Candelaria Route Start Time Stop Time Status Last Admin Dose Admin Ondansetron HCl (Zofran Inj) 4 mg Q6H PRN IV 10/05/17 15:15 11/04/17 15:14 Polyethylene (Miralax Powder Packet) 17 gm DAILY PRN PO 10/05/17 15:15 11/04/17 15:14 Amlodipine Besylate (Norvasc Tab) 10 mg DAILY PO 10/06/17 09:00 11/05/17 08:59 10/25/17 07:45 10 MG Aspirin (Aspirin Chew) 81 mg DAILY PO 10/06/17 09:00 11/05/17 08:59 10/25/17 07:44 81 MG Cetirizine HCl (zyrTEC TAB) 10 mg DAILY PO 10/06/17 09:00 11/05/17 08:59 10/25/17 07:44 10 MG Finasteride (Proscar Tab) 5 mg DAILY PO 10/06/17 09:00 11/05/17 08:59 10/25/17 07:45 5 MG Hydralazine HCl (Apresoline Tab) 50 mg TID PO 10/05/17 21:00 11/04/17 20:59 10/25/17 07:44 50 MG Lovastatin (Mevacor Tab) 20 mg HS PO 10/05/17 21:00 11/04/17 20:59 10/24/17 21:54 20 MG Metoprolol Tartrate (Lopressor Tab) 50 mg BID PO 10/05/17 21:00 11/04/17 20:59 10/25/17 07:44 50 MG Pantoprazole Sodium (Protonix Tab) 40 mg BID PO 10/05/17 21:00 11/04/17 20:59 10/25/17 07:44 40 MG Sodium Bicarbonate (Sodium Bicarbonate Tab) 1,300 mg BID PO 10/05/17 21:00 11/04/17 20:59 10/25/17 07:44 1,300 MG Tamsulosin HCl (Flomax Cap) 0.4 mg BID PO 10/05/17 21:00 11/04/17 20:59 10/25/17 07:45 0.4 MG Miscellaneous (Iv Fluids Completed) 1 ea PRN PRN N/A 10/05/17 15:45 10/05/18 15:44 Glucose (Glucose 40% Gel) 15-30 GRAMS 15 GRAMS... UD PRN PO 10/05/17 23:30 11/04/17 23:29 Glucose (Glucose Chew Tab) 4-8 Tablets 4 Tabl... UD PRN PO 10/05/17 23:30 11/04/17 23:29 Dextrose (Dextrose 50% 50ML Syringe) 25-50ML OF 50% DW IV FOR... UD PRN IV 10/05/17 23:30 11/04/17 23:29 Glucagon (Glucagon Inj) 1 mg UD PRN SQ 10/05/17 23:30 11/04/17 23:29 Insulin Aspart (novoLOG ASPART) SLIDING SCALE ACHS SC 10/06/17 07:00 11/05/17 00:00 10/17/17 21:54 2 UNITS Albuterol/ Ipratropium (Duoneb) 3 ml QIDR PRN INH 10/09/17 12:00 11/04/17 19:59 Raspberry (Raspberry Syrup 5ml Cup) 5 ml Q6 PO 10/10/17 12:00 10/30/17 23:59 10/25/17 05:36 5 ML Acetaminophen (Tylenol Tab) 650 mg Q4H PRN PO 10/15/17 01:45 11/14/17 01:44 10/24/17 19:48 650 MG Saccharomyces Boulardii (Florastor Cap) 250 mg DAILY PO 10/16/17 09:00 11/15/17 08:59 10/25/17 07:44 250 MG Magnesium Oxide (Mag-Ox Tab) 400 mg BID PO 10/21/17 21:00 11/20/17 20:59 10/25/17 07:45 400 MG Ioversol (Optiray 320) 111 ml UD PRN IV 10/22/17 11:45 10/26/17 11:44 Enteral Nutritional Formula (Boost Glucose Control) 1 can BIDM PO 10/22/17 17:00 11/21/17 16:59 10/24/17 17:45 1 CAN Oxycodone/ Acetaminophen (Percocet 5-325mg Tab) 1 tab Q6H PRN PO 10/23/17 18:45 11/06/17 18:44 10/25/17 05:41 1 TAB Vancomycin HCl (Vancomycin Oral Soln) 250 mg Q6 PO 10/24/17 00:00 10/30/17 23:59 10/25/17 05:36 250 MG Objective Vital Signs Date Time Temp Pulse Resp B/P (MAP) Pulse Ox O2 Delivery O2 Flow Rate FiO2 10/25/17 08:30 Room Air 10/25/17 08:15 37.9 93 16 126/54 (78) 95 Room Air 10/25/17 00:20 Room Air 10/24/17 22:33 37.6 88 16 120/63 (82) 96 Nasal Cannula 2.0 10/24/17 21:51 77 133/81 (98) 10/24/17 20:10 Room Air 10/24/17 16:08 38.2 94 18 118/62 (80) 94 Room Air 10/24/17 16:00 Room Air 10/24/17 11:38 94 Room Air Physical Exam General Appearance: no apparent distress Eyes: normal inspection, PERRL ENT: hearing grossly normal Neck: supple Respiratory/Chest: lungs clear, no respiratory distress, no accessory muscle use Cardiovascular: regular rate, rhythm Abdomen: normal bowel sounds, non tender, soft Extremities: no pedal edema, no calf tenderness 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: alert, normal mood/affect, oriented x 3 Skin: normal color, warm/dry, no rash Laboratory Results Last 24 Hours Test 10/24/17 11:34 10/24/17 16:44 10/24/17 19:45 10/25/17 06:10 Bedside Glucose 89 mg/dl 97 mg/dl 95 mg/dl 99 mg/dl Test 10/25/17 07:57 Bedside Glucose 91 mg/dl Assessment and Plan 72 y/o M was admitted to [facility] from 09/17-10/03 for urosepsis due to pansentivie Ecoli and prostatitis, acute renal failure and elevated LFTs. He was discharged on IV ceftriaxone for another 20 days for prostatitis. He was readmitted on October 07, 2017, because of spiking fever and generalized weakness. Fever of unknown origin: - ID consulted, appreciate recommendations- continue Vanco, stopped all other antibiotic treatment - Pulmonary consulted- s/p bronchoscopy on 10/19- washings w/ cristino albicans (ID /pulmonary does NOT think source of fevers), pathology negative for malignancy - TTE negative for vegetations; planning for KAREEM possibly tomorrow to further assess for vegetations due to continued fevers - L hip CT negative for abscess - Abdominal CT negative for prostate abscess - Renal US unremarkable - Bilateral lower extremity Doppler negative for DVT - ?C. diff, although treatment almost completed and fevers continue - BCx negative x3; UCx negative x2; MRSA swab negative; rheumatological workup negative; negative bone scan 09/22/17 - Check TSH Hypophosphatemia: Recheck phosphate level and replace PRN Hypomagnesemia: Continue Mag-Ox supplement, follow mag level and replace PRN Hypokalemia: Replaced w/ KCL supplement, follow PRP and replace PRN C diff colitis: Continue Vancomycin PO QID x21 days- last day of treatment 10/30 Recent GI bleed w/ gastric ulcer on EGD 09/30/17: - Follow H&H- STABLE - Continue Protonix BID - Iron, B12, folate- WNL Recent SONY, ATN- RESOLVED: Continue to follow PRP L LE/left hip pain, OA: - L hip CT- severe OA, no dislocation or evidence of abscess - Continue pain control w/ Percocet and Tylenol PRN Moderate to severe protein malnutrition with prealbumin 11: Dietitian consulted - Boost BID and snack HS HTN- STABLE: Continue Norvasc 10 mg daily, Hydralazine 50 mg TID, Lopressor 50 mg BID HLD: Continue Lovastatin HS BPH, h/o prostatitis: - PSA 1.4 - Continue Proscar 5 mg daily, Flomax 0.4 mg daily - Urology consulted- biopsy of prostate nodule outpatient, TOV once appropriate - Hematology/oncology consulted- no recommendations, signed-off Hepatitis A, transaminitis, likely from sepsis last admission- RESOLVED GI prophylaxis: Protonix BID DVT prophylaxis: Heparin SQ BID CODE STATUS: LEVEL V, DNR Disposition: From [facility]
[2017-10-25 11:56] LABS: BASO % 0.2 %; BASO ABS # 0.02 K/uL (0-0.2); EOS % 2.2 %; EOS ABS # 0.18 K/uL (0-0.5); HEMOGLOBIN 9.6 g/dL (14.0-18.0); IG# 0.04 K/uL (0.00-0.02); LYMPH % 26.2 %; LYMPH ABS # 2.15 K/uL (1.2-3.4); MEAN CELL VOLUME 79.9 fL (80-100); MEAN CORPUSCULAR HEMOGLOBIN 26.4 pg (25-34); MEAN CORPUSCULAR HGB CONC 33.1 g/dl (32-36); MEAN PLATELET VOLUME 8.8 fL (7.4-10.4); MONO % 15.2 %; MONO ABS # 1.25 K/uL (0.11-0.59); NEUT % 55.7 %; NEUT ABS # 4.56 K/uL (1.4-6.5); PLATELET COUNT 362 K/uL (130-400); RED CELL DISTRIBUTION WIDTH CV 16.1 % (11.5-14.5); RED CELL DISTRIBUTION WIDTH SD 47.4 fL (36.4-46.3)
--- NOTE | 2017-10-25 12:07 | PULMONARY PROGRESS NOTE ---
DATE: 10/25/2017 SUBJECTIVE: The patient continues to run low grade fevers, temperature 36.6 on 10/24/2017 at 2200 and last night 37.9. His major complaint is left hip pain and on exam, the hip is painful on external and internal rotation and the subcutaneous tissue appears to be edematous and tender to palpation, slightly warm. From a pulmonary standpoint, he is back to baseline in my opinion. OBJECTIVE: VITAL SIGNS: Stable. His O2 sat 95% on room air, blood pressure 126/54, respiratory rate 16 heart rate 93 and regular, temperature 37.9. SKIN: Without lesion. HEENT: Atraumatic, normocephalic. PERRLA, EOMI. Conjunctivae pale. Sclerae nonicteric. Fundi poorly visualized. NECK: Neck veins are not distended at 45 degrees. LUNGS: Decreased breath sounds at the bases. Occasional rhonchi with distant P&A. CARDIAC: Regular rate and rhythm. I do not appreciate a murmur or gallop. ABDOMEN: Soft, protuberant. No evidence for hepatosplenomegaly. EXTREMITIES: No significant pedal edema, clubbing or cyanosis, but there is tenderness to palpation of the left externally over the left hip, gluteal area, it is edematous. NEUROLOGICAL: Cranial nerves II-XII grossly intact. No lateralizing signs. No meningismus. LABORATORY DATA: White count 7700 on the 9. H&H 9.3 and 27.8. Potassium 3.2, magnesium is 1.7, prealbumin is low. CT scan of the hip shows no fracture or dislocation, but severe left hip osteoarthritis. Subcutaneous edema throughout the left hip. No obvious abscess. Bronchial washings are growing Koki albicans. No obvious signs that there was a pathogen. Previous cultures in early September grew from the blood and urine E. coli. The patient has had a Hamm catheter in place twice during this hospital stay. He was unable to pass urine. OVERALL ASSESSMENT AND PLAN: A 72-year-old black male incarcerated with a lengthy hospital stay with persistent fevers and only complaint currently is left hip pain with some swelling in the subcutaneous tissue and a hip CT scan that showed severe degenerative changes and the subcutaneous edema. Certainly, cannot rule out osteomyelitis with no obvious abscess formation. From urologic standpoint it is possible that we would have persistent Escherichia coli infection of the prostate despite negative cultures on admission and that he has been adequately treated there at this point in time. We will discuss further with ID, but I do not think the source of fever is coming from his chest that I can determine. I would like to repeat his chest x-ray and make sure the effusions are not worse. They do not have the appearance of empyema. ODETTED
--- NOTE | 2017-10-25 12:31 | DIAGNOSTIC IMAGING REPORT ---
CHEST 2 VIEWS ROUTINE CLINICAL HISTORY: bilat pleural effusions dyspnea COMPARISON STUDY: 10/17/2017 FINDINGS: Mildly improved aeration left base and right midlung. Moderate infiltrative change persists. Slight blunting left lateral costophrenic angle. Right costophrenic angle is sharp. No significant cardiac enlargement. IMPRESSION: Bilateral parenchymal infiltrates slightly improved from the prior study. Trace pleural fluid left lung base. The above report was generated using voice recognition software. It may contain grammatical, syntax or spelling errors. Electronically signed by: Robel Altamirano M.D. 10/25/2017 12:29 PM Dictated Date/Time: 10/25/2017 12:28 PM
[2017-10-25 13:57] VITALS: BP 130/67; PULSE 90
[2017-10-25 15:56] VITALS: BP 130/67; PULSE 91; TEMP 37.3; O2SAT 93
--- NOTE | 2017-10-25 20:05 | DIAGNOSTIC IMAGING REPORT ---
BILATERAL UPPER EXTREMITY VENOUS DOPPLER HISTORY: spiking fever to rule out DVT in bilateral upper extremity COMPARISON STUDY: None. FINDINGS: The bilateral internal jugular, subclavian, axillary, basilic, brachial, radial, and ulnar veins are patent. There is thrombus within the bilateral cephalic veins from the proximal to mid forearm. IMPRESSION: 1. No DVT within the right or left upper extremity. 2. Thrombus within the bilateral cephalic veins from the proximal to mid forearms. Electronically signed by: Joel Ring M.D. 10/25/2017 8:04 PM Dictated Date/Time: 10/25/2017 8:02 PM
[2017-10-25] MEDS: HEPARIN SOD 5000 UNIT/0.5 ML CARP SQ SCH (20:36)
[2017-10-25] MEDS: LOVASTATIN 20 MG TAB PO SCH (21:57)
[2017-10-25 22:49] VITALS: BP 135/65; PULSE 109; TEMP 38.2; O2SAT 93
[2017-10-25] MEDS: ACETAMINOPHEN 325 MG TAB PO PRN (22:59)
[2017-10-26] VITALS (11 sets, daily range): BP systolic 83–143; BP diastolic 42–78; PULSE 92–109; TEMP 36.8–37.8; O2SAT 93–98
[2017-10-26] MEDS: RASPBERRY SYRUP 5 ML UDP PO SCH ×4 (06:13→23:21)
[2017-10-26] MEDS: VANCOMYCIN HCL 250 MG/5 ML SOLN PO SCH ×4 (06:13→23:21)
[2017-10-26 06:35] LABS: HEMATOCRIT 26.9 % (42-52); MEAN CELL VOLUME 79.6 fL (80-100); MEAN CORPUSCULAR HEMOGLOBIN 26.6 pg (25-34); MEAN CORPUSCULAR HGB CONC 33.5 g/dl (32-36); MEAN PLATELET VOLUME 9.2 fL (7.4-10.4); PLATELET COUNT 361 K/uL (130-400); RED CELL DISTRIBUTION WIDTH SD 46.7 fL (36.4-46.3); WHITE BLOOD COUNT 7.44 K/uL (4.8-10.8)
[2017-10-26 07:08] LABS: CREATININE 1.48 mg/dl (0.60-1.40); POTASSIUM 3.4 mmol/L (3.5-5.1)
[2017-10-26 07:20] LABS: PHOSPHORUS 2.5 mg/dl (2.5-4.9)
[2017-10-26] MEDS: INSULIN ASPART 100 UNITS/ML 3 ML PEN SC SCH ×2 (07:44→11:42)
[2017-10-26] MEDS: BOOST GLUCOSE CONTROL PO SCH ×2 (07:45→17:41)
[2017-10-26] MEDS: ASPIRIN 81 MG CHEW PO SCH (07:51)
[2017-10-26] MEDS: SODIUM BICARBONATE 650 MG TAB PO SCH ×2 (07:51→20:38)
[2017-10-26] MEDS: TAMSULOSIN HCL 0.4 MG CAP PO SCH ×2 (07:51→20:37)
[2017-10-26] MEDS: METOPROLOL TARTRATE 50 MG TAB PO SCH ×2 (07:51→20:37)
[2017-10-26] MEDS: PANTOprazole SOD 40 MG TAB PO SCH ×2 (07:51→20:37)
[2017-10-26] MEDS: CETIRIZINE HCL 10 MG TAB PO SCH (07:51)
[2017-10-26] MEDS: FINASTERIDE 5 MG TAB PO SCH (07:52)
[2017-10-26] MEDS: MAGNESIUM OXIDE 400 MG TAB PO SCH ×2 (07:52→20:37)
[2017-10-26] MEDS: SACCHAROMYCES BOUL (FLORASTOR) 250 MG CAP PO SCH (07:52)
[2017-10-26] MEDS: AMLODIPINE BESYLATE 5 MG TAB PO SCH (07:52)
[2017-10-26] MEDS: HEPARIN SOD 5000 UNIT/0.5 ML CARP SQ SCH ×2 (07:56→20:39)
[2017-10-26] MEDS ORDERED: POTASSIUM CHLORIDE 20 MEQ TABCR PO ONE (08:45)
[2017-10-26] MEDS ORDERED: LIDOCAINE HCL 2% 2 ML VIAL (20MG/ML) ONE (09:55)
[2017-10-26] MEDS ORDERED: PROPOFOL IV EMULSION 10 MG/ML 20 ML VIAL IV ONE (09:55)
--- NOTE | 2017-10-26 10:30 | Anesthesiology Progress Note ---
Anesthesia Post Op Note Date & Time Oct 26, 2017 at 10:30 Vital Signs Pain Intensity: 0 Vital Signs Past 12 Hours Date Time Temp Pulse Resp B/P (MAP) Pulse Ox O2 Delivery O2 Flow Rate FiO2 10/26/17 10:20 97 14 107/58 98 Nasal Cannula 4 10/26/17 10:15 96 18 122/60 98 Nasal Cannula 4 10/26/17 08:30 Room Air 10/26/17 07:38 37.8 109 16 143/67 (92) 95 Room Air 10/26/17 00:00 Room Air 10/25/17 22:49 38.2 109 18 135/65 (88) 93 Room Air Notes Mental Status: alert / awake / arousable, participated in evaluation Pt Amnestic to Procedure: Yes Nausea / Vomiting: adequately controlled Pain: adequately controlled Airway Patency, RR, SpO2: stable & adequate BP & HR: stable & adequate Hydration State: stable & adequate Anesthetic Complications: no major complications apparent
--- NOTE | 2017-10-26 14:42 | Hospitalist Progress Note ---
Hospitalist Progress Note Date of Service Oct 26, 2017. Subjective Pt evaluation today including: conversation w/ patient, physical exam, lab review, conversation w/ [employer] identity management consultant, review of inpatient medication list Voiding: vega catheter in place (draining clear/yellow urine ) Patient resting in bed. Feeling well. +weakness, fever/chills. Tolerated KAREEM well. Eating and drinking OK. Patient denies any sweats, lightheadedness, dizziness, vision changes, CP, palpitations, edema, SOB, wheezing, cough, abdominal pain, nausea, vomiting, diarrhea, urinary symptoms, melena, numbness/tingling, muscle/joint pain, anxiety/depression, active bleeding, or new skin discoloration/changes. Medications Current Inpatient Medications Medications (Trade) Dose Ordered Sig/Candelaria Route Start Time Stop Time Status Last Admin Dose Admin Ondansetron HCl (Zofran Inj) 4 mg Q6H PRN IV 10/05/17 15:15 11/04/17 15:14 Polyethylene (Miralax Powder Packet) 17 gm DAILY PRN PO 10/05/17 15:15 11/04/17 15:14 Amlodipine Besylate (Norvasc Tab) 10 mg DAILY PO 10/06/17 09:00 11/05/17 08:59 10/26/17 07:52 10 MG Aspirin (Aspirin Chew) 81 mg DAILY PO 10/06/17 09:00 11/05/17 08:59 10/26/17 07:51 81 MG Cetirizine HCl (zyrTEC TAB) 10 mg DAILY PO 10/06/17 09:00 11/05/17 08:59 10/26/17 07:51 10 MG Finasteride (Proscar Tab) 5 mg DAILY PO 10/06/17 09:00 11/05/17 08:59 10/26/17 07:52 5 MG Hydralazine HCl (Apresoline Tab) 50 mg TID PO 10/05/17 21:00 11/04/17 20:59 10/26/17 13:49 50 MG Lovastatin (Mevacor Tab) 20 mg HS PO 10/05/17 21:00 11/04/17 20:59 10/25/17 21:57 20 MG Metoprolol Tartrate (Lopressor Tab) 50 mg BID PO 10/05/17 21:00 11/04/17 20:59 10/26/17 07:51 50 MG Pantoprazole Sodium (Protonix Tab) 40 mg BID PO 10/05/17 21:00 11/04/17 20:59 10/26/17 07:51 40 MG Sodium Bicarbonate (Sodium Bicarbonate Tab) 1,300 mg BID PO 10/05/17 21:00 11/04/17 20:59 10/26/17 07:51 1,300 MG Tamsulosin HCl (Flomax Cap) 0.4 mg BID PO 10/05/17 21:00 11/04/17 20:59 10/26/17 07:51 0.4 MG Miscellaneous (Iv Fluids Completed) 1 ea PRN PRN N/A 10/05/17 15:45 10/05/18 15:44 Albuterol/ Ipratropium (Duoneb) 3 ml QIDR PRN INH 10/09/17 12:00 11/04/17 19:59 Raspberry (Raspberry Syrup 5ml Cup) 5 ml Q6 PO 10/10/17 12:00 10/30/17 23:59 10/26/17 11:47 5 ML Acetaminophen (Tylenol Tab) 650 mg Q4H PRN PO 10/15/17 01:45 11/14/17 01:44 10/25/17 22:59 650 MG Saccharomyces Boulardii (Florastor Cap) 250 mg DAILY PO 10/16/17 09:00 11/15/17 08:59 10/26/17 07:52 250 MG Magnesium Oxide (Mag-Ox Tab) 400 mg BID PO 10/21/17 21:00 11/20/17 20:59 10/26/17 07:52 400 MG Enteral Nutritional Formula (Boost Glucose Control) 1 can BIDM PO 10/22/17 17:00 11/21/17 16:59 10/25/17 17:39 1 CAN Oxycodone/ Acetaminophen (Percocet 5-325mg Tab) 1 tab Q6H PRN PO 10/23/17 18:45 11/06/17 18:44 10/25/17 23:47 1 TAB Vancomycin HCl (Vancomycin Oral Soln) 250 mg Q6 PO 10/24/17 00:00 10/30/17 23:59 10/26/17 11:47 250 MG Heparin Sodium (Porcine) (Heparin Sq 5000 Unit/0.5ml) 5,000 unit Q12 SQ 10/25/17 21:00 11/24/17 20:59 10/26/17 07:56 5,000 UNIT Objective Vital Signs Date Time Temp Pulse Resp B/P (MAP) Pulse Ox O2 Delivery O2 Flow Rate FiO2 10/26/17 13:47 109 122/60 (80) 10/26/17 10:40 88 18 124/58 (80) 95 Room Air 10/26/17 10:30 98 16 95/49 98 Nasal Cannula 4 10/26/17 10:26 95 14 83/44 98 Nasal Cannula 4 10/26/17 10:25 97 14 89/42 98 Nasal Cannula 4 10/26/17 10:20 97 14 107/58 98 Nasal Cannula 4 10/26/17 10:15 96 18 122/60 98 Nasal Cannula 4 10/26/17 08:30 Room Air 10/26/17 07:38 37.8 109 16 143/67 (92) 95 Room Air 10/26/17 00:00 Room Air 10/25/17 22:49 38.2 109 18 135/65 (88) 93 Room Air 10/25/17 16:12 Room Air 10/25/17 15:56 37.3 91 18 130/67 (88) 93 Room Air Physical Exam General Appearance: no apparent distress Eyes: normal inspection, PERRL ENT: hearing grossly normal Neck: supple Respiratory/Chest: lungs clear, no respiratory distress, no accessory muscle use Cardiovascular: regular rate, rhythm Abdomen: normal bowel sounds, non tender, soft Extremities: no pedal edema, no calf tenderness 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: alert, normal mood/affect, oriented x 3 Skin: normal color, warm/dry, no rash Laboratory Results Last 24 Hours Test 10/25/17 16:44 10/25/17 20:11 10/26/17 06:14 10/26/17 07:30 Bedside Glucose 94 mg/dl 85 mg/dl 92 mg/dl White Blood Count 7.44 K/uL Red Blood Count 3.38 M/uL Hemoglobin 9.0 g/dL Hematocrit 26.9 % Mean Corpuscular Volume 79.6 fL Mean Corpuscular Hemoglobin 26.6 pg Mean Corpuscular Hemoglobin Concent 33.5 g/dl RDW Standard Deviation 46.7 fL RDW Coefficient of Variation 16.0 % Platelet Count 361 K/uL Mean Platelet Volume 9.2 fL Sodium Level 138 mmol/L Potassium Level 3.4 mmol/L Chloride Level 105 mmol/L Carbon Dioxide Level 26 mmol/L Anion Gap 7.0 mmol/L Blood Urea Nitrogen 6 mg/dl Creatinine 1.48 mg/dl Est Creatinine Clear Calc Drug Dose 43.8 ml/min Estimated GFR () 53.3 Estimated GFR (Non- 46.0 BUN/Creatinine Ratio 3.9 Random Glucose 85 mg/dl Calcium Level 8.0 mg/dl Phosphorus Level 2.5 mg/dl Magnesium Level 1.8 mg/dl Thyroid Stimulating Hormone (TSH) 4.750 uIu/ml Test 10/26/17 11:30 Bedside Glucose 86 mg/dl Assessment and Plan 72 y/o M was admitted to [facility] from 09/17-10/03 for urosepsis due to pansentivie Ecoli and prostatitis, acute renal failure and elevated LFTs. He was discharged on IV ceftriaxone for another 20 days for prostatitis. He was readmitted on October 07, 2017, because of spiking fever and generalized weakness. Fever of unknown origin: - ID consulted, appreciate recommendations- continue Vanco, stopped all other antibiotic treatment - Pulmonary consulted- s/p bronchoscopy on 10/19- washings w/ cristino albicans (ID /pulmonary does NOT think source of fevers), pathology negative for malignancy - TTE negative for vegetations; KAREEM today to further assess for vegetations due to continued fevers still pending - L hip CT negative for abscess - Abdominal CT negative for prostate abscess - Renal US unremarkable - Bilateral lower extremity Doppler negative for DVT - Bilateral upper extremity Doppler negative for DVT - ?C. diff, although treatment almost completed and fevers continue - BCx negative x3; UCx negative x2; MRSA swab negative; rheumatological workup negative; negative bone scan 09/22/17 - Discussed w/ hematology/oncology, Dr. Kc- does not believe hematological disease Mildly elevated TSH: Recommend repeat in 6-8 weeks Hypophosphatemia- RESOLVED: Recheck phosphate level and replace PRN Hypomagnesemia- RESOLVED: Continue Mag-Ox supplement, follow mag level and replace PRN Hypokalemia- IMPROVING: Replaced w/ KCL supplement, follow PRP and replace PRN C diff colitis: Continue Vancomycin PO QID x21 days- last day of treatment 10/30 Recent GI bleed w/ gastric ulcer on EGD 09/30/17: - Follow H&H- STABLE - Continue Protonix BID - Iron, B12, folate- WNL Recent SONY, ATN- RESOLVED: Continue to follow PRP L LE/left hip pain, OA: - L hip CT- severe OA, no dislocation or evidence of abscess - Continue pain control w/ Percocet and Tylenol PRN Moderate to severe protein malnutrition with prealbumin 11: Dietitian consulted - Boost BID and snack HS HTN- STABLE: Continue Norvasc 10 mg daily, Hydralazine 50 mg TID, Lopressor 50 mg BID HLD: Continue Lovastatin HS BPH, h/o prostatitis: - Vega placed- discontinue today for TOV - PSA 1.4 - Continue Proscar 5 mg daily, Flomax 0.4 mg daily - Urology consulted- biopsy of prostate nodule outpatient - Hematology/oncology consulted- no recommendations, signed-off Hepatitis A, transaminitis, likely from sepsis last admission- RESOLVED GI prophylaxis: Protonix BID DVT prophylaxis: Heparin SQ BID CODE STATUS: LEVEL V, DNR [facility]- if KAREEM negative, discharge back to [facility] tomorrow
--- NOTE | 2017-10-26 15:12 | Progress Note ---
Subjective Date of Service: Oct 26, 2017. Subjective remains with fever. KAREEM done today, pending. all cultures negative with exception of stool + c diff, on po vanco, tolerating well. upper ext doppler yesterday b/l cephalic vein clots. Problem List Medical Problems: (1) Acute renal failure Status: Acute (2) Hyperbilirubinemia Status: Acute (3) Leukocytosis Status: Acute (4) UTI (urinary tract infection) Status: Acute Objective Vital Signs Date Time Temp Pulse Resp B/P (MAP) Pulse Ox O2 Delivery O2 Flow Rate FiO2 10/26/17 13:47 109 122/60 (80) 10/26/17 10:40 88 18 124/58 (80) 95 Room Air 10/26/17 10:30 98 16 95/49 98 Nasal Cannula 4 10/26/17 10:26 95 14 83/44 98 Nasal Cannula 4 10/26/17 10:25 97 14 89/42 98 Nasal Cannula 4 10/26/17 10:20 97 14 107/58 98 Nasal Cannula 4 10/26/17 10:15 96 18 122/60 98 Nasal Cannula 4 10/26/17 08:30 Room Air 10/26/17 07:38 37.8 109 16 143/67 (92) 95 Room Air 10/26/17 00:00 Room Air 10/25/17 22:49 38.2 109 18 135/65 (88) 93 Room Air 10/25/17 16:12 Room Air 10/25/17 15:56 37.3 91 18 130/67 (88) 93 Room Air Laboratory Results Item Value Date Time Blood Culture - Preliminary Resulted 10/22/17 0141 Blood NO GROWTH TO DATE. Blood Culture - Preliminary Resulted 10/22/17 0135 Blood NO GROWTH TO DATE. Last 24 Hours Test 10/25/17 16:44 10/25/17 20:11 10/26/17 06:14 10/26/17 07:30 Bedside Glucose 94 mg/dl 85 mg/dl 92 mg/dl White Blood Count 7.44 K/uL Red Blood Count 3.38 M/uL Hemoglobin 9.0 g/dL Hematocrit 26.9 % Mean Corpuscular Volume 79.6 fL Mean Corpuscular Hemoglobin 26.6 pg Mean Corpuscular Hemoglobin Concent 33.5 g/dl RDW Standard Deviation 46.7 fL RDW Coefficient of Variation 16.0 % Platelet Count 361 K/uL Mean Platelet Volume 9.2 fL Sodium Level 138 mmol/L Potassium Level 3.4 mmol/L Chloride Level 105 mmol/L Carbon Dioxide Level 26 mmol/L Anion Gap 7.0 mmol/L Blood Urea Nitrogen 6 mg/dl Creatinine 1.48 mg/dl Est Creatinine Clear Calc Drug Dose 43.8 ml/min Estimated GFR () 53.3 Estimated GFR (Non- 46.0 BUN/Creatinine Ratio 3.9 Random Glucose 85 mg/dl Calcium Level 8.0 mg/dl Phosphorus Level 2.5 mg/dl Magnesium Level 1.8 mg/dl Thyroid Stimulating Hormone (TSH) 4.750 uIu/ml Test 10/26/17 11:30 Bedside Glucose 86 mg/dl Assessment and Plan (1) C. difficile colitis Assessment & Plan: Continue vancomycin at current dose. I would suggest a 21 day course of oral vancomycin to treat C diff. (2) Fever Assessment & Plan: continues with fever, less likely infectious in nature, await KAREEM findings. now with b/l UE clots, potential source. Continued [facility] stay due to: home environment unsafe for pt Discharge planning: other Problem Qualifiers (1) Fever: Fever type: unspecified Qualified Codes: R50.9 - Fever, unspecified
[2017-10-26] MEDS: OXYCODONE/ACETAMINOPHEN 5-325 TAB PO PRN (17:42)
--- NOTE | 2017-10-26 17:57 | TEE ---
*NOTICE TO RECEIVING [employer] This information is strictly Confidential and protected under [place] law. [place] law prohibits you from making any further disclosure of this information unless further disclosure is expressly permitted by the written consent of the person to whom it pertains or is authorized by law. A general authorization for the release of medical or other information is not sufficient for this purpose. Hospital accepts no responsibility if the information is made available to any other person, INCLUDING THE PATIENT. Interpretation Summary * Name: DARRELL FERRARA [id number] Study Date: 10/26/2017 08:49 AM BP: 124/58 mmHg * Patient Location: [facility]\S\W452\S\1 HR: 95 * : 1945 (M/d/yyy) Gender: Male Height: 69 in * Age: 72 yrs Ethnicity: AA Weight: 146 lb * Ordering Physician: Juma Sevilla * Referring Physician: Jamarcus MURPHY * Performed By: Aneta Eagle RDCS * * Reason For Study: Endocarditis * BSA: 1.8 m2 * -- Conclusions -- * No valvular vegetations noted. * No significant abnormalities Procedure Details * The transesophageal portion of this study was personally supervised by the undersigned interpreting physician. * KAREEM Probe #1 utilized for procedure. * The study was performed in Cardiac Catheterization Lab. * Time out was conducted by the physician, nurse, and medical imaging technician with positive identification of patient and procedure. * Informed consent for Transesophageal Echocardiogram was obtained prior to the procedure. * An intravenous line was placed. A topical anesthetic agent was used for oropharangeal anesthesia. A bite block was inserted. * Sedation performed by the anesthesia department. * 180 ML Propofol 20 ML Lidacaine Start time: 10:15 am End time: 10:26 am * The patient's vital signs, including blood pressure, heart rate, pulse oximetry and cardiac rhythm were monitored throughout the procedure . * The posterior oropharynx was anesthetized using a topical anesthetic spray. A bite guard was inserted. * A multifrequency, multiplane transesopheageal echocardiographic endoscope was inserted and manipulated in the standard fashion to achieve multiplane views. * The transesophageal probe was passed without difficulty. * The usual views were obtained; basal, mid-esophageal, transgastric and aortic views. * The patient tolerated the procedure well without evidence of orophangeal or esophageal trauma. * A 2D transesophageal echocardiogram with spectral and color flow Doppler was performed. * A 2D transesophageal echocardiogram with Doppler and color flow Doppler was performed. Left Ventricle * The left ventricle is grossly normal size. * Left ventricular systolic function is normal. Atria * The left atrial size is normal. * Right atrial size is normal. Mitral Valve * The mitral valve anatomy is normal. * There is no vegetation seen on the mitral valve. * Significant mitral regurgitation is absent. Tricuspid Valve * The tricuspid valve is not well visualized, but is grossly normal. Aortic Valve * The aortic valve is normal in structure and function. * The aortic valve is trileaflet. * There is no aortic valvular vegetation. * Trace aortic regurgitation. Pericardium * There is no pericardial effusion.
[2017-10-26] MEDS: LOVASTATIN 20 MG TAB PO SCH (20:37)
[2017-10-26] MEDS: ACETAMINOPHEN 325 MG TAB PO PRN (23:23)
[2017-10-27] MEDS: VANCOMYCIN HCL 250 MG/5 ML SOLN PO SCH ×2 (05:30→11:48)
[2017-10-27] MEDS: RASPBERRY SYRUP 5 ML UDP PO SCH ×2 (05:30→11:48)
[2017-10-27 07:53] VITALS: BP 147/68; PULSE 101; TEMP 37.8; O2SAT 95
[2017-10-27 08:13] LABS: HEMOGLOBIN 9.2 g/dL (14.0-18.0); MEAN CELL VOLUME 79.3 fL (80-100); MEAN CORPUSCULAR HEMOGLOBIN 26.1 pg (25-34); MEAN CORPUSCULAR HGB CONC 32.9 g/dl (32-36); PLATELET COUNT 384 K/uL (130-400); RED CELL DISTRIBUTION WIDTH CV 16.2 % (11.5-14.5); RED CELL DISTRIBUTION WIDTH SD 47.3 fL (36.4-46.3); WHITE BLOOD COUNT 8.65 K/uL (4.8-10.8)
[2017-10-27 08:44] LABS: CALCIUM 8.2 mg/dl (8.5-10.1); CREATININE 1.62 mg/dl (0.60-1.40); POTASSIUM 3.7 mmol/L (3.5-5.1)
[2017-10-27] MEDS: MAGNESIUM OXIDE 400 MG TAB PO SCH (08:52)
[2017-10-27] MEDS: CETIRIZINE HCL 10 MG TAB PO SCH (08:52)
[2017-10-27] MEDS: METOPROLOL TARTRATE 50 MG TAB PO SCH (08:52)
[2017-10-27] MEDS: FINASTERIDE 5 MG TAB PO SCH (08:53)
[2017-10-27] MEDS: SACCHAROMYCES BOUL (FLORASTOR) 250 MG CAP PO SCH (08:53)
[2017-10-27] MEDS: AMLODIPINE BESYLATE 5 MG TAB PO SCH (08:53)
[2017-10-27] MEDS: BOOST GLUCOSE CONTROL PO SCH (08:54)
[2017-10-27] MEDS: SODIUM BICARBONATE 650 MG TAB PO SCH (08:54)
[2017-10-27] MEDS: PANTOprazole SOD 40 MG TAB PO SCH (08:55)
[2017-10-27] MEDS: TAMSULOSIN HCL 0.4 MG CAP PO SCH (08:55)
[2017-10-27] MEDS: HEPARIN SOD 5000 UNIT/0.5 ML CARP SQ SCH (08:59)
[2017-10-27] MEDS: ASPIRIN 81 MG CHEW PO SCH (09:00)
[2017-10-27] MEDS ORDERED: MGNO400 PO (12:16)
[2017-10-27] MEDS ORDERED: NUTR-7 PO (12:16)
[2017-10-27] MEDS ORDERED: VANC1SUS PO (12:16)
[2017-10-27] MEDS ORDERED: SACC250C3 PO (12:16)
--- NOTE | 2017-10-27 12:25 | Discharge Instructions ---
Discharge Instructions Date of Service Oct 27, 2017. Admission Reason for Admission: Fever, Pneumonia Discharge Discharge Diagnosis / Problem: Fever of unknown origin Discharge Goals Goal(s): Decrease discomfort, Improve function, Increase independence, Improve disease control, Improve nutritional status, Learn about illness, Diagnostic testing, Therapeutic intervention, Prevent Disease Progression Activity Recommendations Activity Level: Assistance Required Therapies: Physical Therapy, Occupational Therapy . Additional Information Patient informed of condition: Yes Advance Directives: Yes DNR: Yes Level of Care: Other Communicable Disease: Yes Prognosis: Stable Oxygen at (LPM): by protocol Hamm Catheter: Yes Instructions / Follow-Up Instructions / Follow-Up 72 y/o M was admitted to [facility] from 09/17-10/03 for urosepsis due to pansentivie Ecoli and prostatitis, acute renal failure and elevated LFTs. He was discharged on IV ceftriaxone for another 20 days for prostatitis. He was readmitted on October 07, 2017, because of spiking fever and generalized weakness. Fever of unknown origin: - ID consulted, appreciate recommendations- continue Vanco course, stopped all other antibiotic treatment - Pulmonary consulted- s/p bronchoscopy on 10/19- washings w/ cristino albicans (ID /pulmonary does NOT think source of fevers), pathology negative for malignancy - TTE negative for vegetations; KAREEM today to further assess for vegetations negative - L hip CT negative for abscess - Abdominal CT negative for prostate abscess - Renal US unremarkable - Bilateral lower extremity Doppler negative for DVT - Bilateral upper extremity Doppler negative for DVT, bilateral thrombus of cephalic vein- discussed w/ vascular surgery, treatment not indicated - ?C. diff, although treatment almost completed and fevers continue - BCx negative x3; UCx negative x2; MRSA swab negative; rheumatological workup negative; negative bone scan 09/22/17 - Discussed w/ hematology/oncology, Dr. Kc- does not believe hematological disease Mildly elevated TSH: Recommend repeat in 6-8 weeks Hypophosphatemia- RESOLVED: Recheck phosphate level and replace PRN Hypomagnesemia- RESOLVED: Continue Mag-Ox supplement, follow mag level and replace PRN Hypokalemia- RESOLVED: Replaced w/ KCL supplement, follow PRP and replace PRN C diff colitis: - Continue Vancomycin PO QID x21 days- last day of treatment 10/30 - Contact precautions Recent GI bleed w/ gastric ulcer on EGD 09/30/17: - Follow H&H- STABLE - Continue Protonix BID - Iron, B12, folate- WNL Recent SONY, ATN- RESOLVED: Continue to follow PRP L LE/left hip pain, OA: - L hip CT- severe OA, no dislocation or evidence of abscess - Continue pain control w/ Percocet and Tylenol PRN Moderate to severe protein malnutrition with prealbumin 11: Dietitian consulted - Boost BID and snack HS HTN- STABLE: Continue Norvasc 10 mg daily, Hydralazine 50 mg TID, Lopressor 50 mg BID HLD: Continue Lovastatin HS BPH, h/o prostatitis: - Hamm placed- discontinue for TOV, failed- Hamm placed prior to discharge - PSA 1.4 - Continue Proscar 5 mg daily, Flomax 0.4 mg daily - Urology consulted- biopsy of prostate nodule outpatient, f/u outpatient - Hematology/oncology consulted- no recommendations, signed-off Hepatitis A, transaminitis, likely from sepsis last admission- RESOLVED GI prophylaxis: Protonix BID DVT prophylaxis: Heparin SQ BID CODE STATUS: LEVEL V, DNR Disposition: Discharge to [facility] FOLLOW-UPS: Please follow-up with [facility] provider within 24-48 hours Please follow-up with Urology within 1-2 weeks Please follow-up/keep all of your subspecialty appointments Current Hospital Diet Patient's current hospital diet: Diabetes Type 2 Diet Discharge Diet Recommended Diet: Diabetes Type 2 Diet Procedures Procedures Performed: BRONCHOSCOPY Pending Studies Studies pending at discharge: no Physician Orders On Transfer Special Precautions: Fall precautions Contact precautions Dressing Changes: None IV Therapy: None Vital Signs: Routine Additional Orders: Repeat CBC, PRP in the next 2-3 days Laboratory Results Hemoglobin A1c Test 10/06/17 05:35 Range/Units Estimated Average Glucose 100 mg/dl Hemoglobin A1c 5.1 4.5-5.6 % Medical Emergencies . Who to Call and When: Medical Emergencies: If at any time you feel your situation is an emergency, please call 911 immediately. . Non-Emergent Contact Non-Emergency issues call your: Primary Care Provider Call Non-Emergent contact if: you have a fever, your pain is not controlled, your pain is worsening, your pain is unusual for you, your pain is concerning you, you have any medication questions . . "Provider Documentation" section prepared by Quin Muniz. . Core Measure Problem Core Measures: None
--- NOTE | 2017-10-27 12:36 | Discharge Summary ---
Discharge Summary Date of Service Oct 27, 2017. Discharge Summary Admission Date: Oct 06, 2017 at 15:45 Discharge Date: Oct 27, 2017 Discharge Disposition: Acute care facility ([facility] ) Principal Diagnosis: Fever of unknown origin Problems/Secondary Diagnoses: bilateral thrombus of cephalic vein Mildly elevated TSH Hypophosphatemia Hypomagnesemia Hypokalemia C diff colitis Recent GI bleed w/ gastric ulcer on EGD 09/30/17 Recent SONY, ATN left hip pain OA Moderate to severe protein malnutrition with prealbumin 11 HTN HLD BPH h/o prostatitis Hepatitis A transaminitis Immunizations: Have You Had Influenza Vaccine: Unknown History of Tetanus Vaccine?: Unknown History of Pneumococcal: Unknown History of Hepatitis B Vaccine: Unknown Procedures: KAREEM: Interpretation Summary * Name: DARRELL FERRARA [id number] Study Date: 10/26/2017 08:49 AM BP: 124/58 mmHg * Patient Location: [facility]\S\ HR: 95 * : 1945 (M/d/yyyy) Gender: Male Height: 69 in * Age: 72 yrs Ethnicity: AA Weight: 146 lb * Ordering Physician: Juma Sevilla * Referring Physician: [facility] * Performed By: Aneta Eagle RDCS * * Reason For Study: Endocarditis * BSA: 1.8 m2 * -- Conclusions -- * No valvular vegetations noted. * No significant abnormalities Procedure Details * The transesophageal portion of this study was personally supervised by the undersigned interpreting physician. * KAREEM Probe #1 utilized for procedure. * The study was performed in Cardiac Catheterization Lab. * Time out was conducted by the physician, nurse, and test technician with positive identification of patient and procedure. * Informed consent for Transesophageal Echocardiogram was obtained prior to the procedure. * An intravenous line was placed. A topical anesthetic agent was used for oropharangeal anesthesia. A bite block was inserted. * Sedation performed by the anesthesia department. * 180 ML Propofol 20 ML Lidacaine Start time: 10:15 am End time: 10:26 am * The patient's vital signs, including blood pressure, heart rate, pulse oximetry and cardiac rhythm were monitored throughout the procedure . * The posterior oropharynx was anesthetized using a topical anesthetic spray. A bite guard was inserted. * A multifrequency, multiplane transesopheageal echocardiographic endoscope was inserted and manipulated in the standard fashion to achieve multiplane views. * The transesophageal probe was passed without difficulty. * The usual views were obtained; basal, mid-esophageal, transgastric and aortic views. * The patient tolerated the procedure well without evidence of orophangeal or esophageal trauma. * A 2D transesophageal echocardiogram with spectral and color flow Doppler was performed. * A 2D transesophageal echocardiogram with Doppler and color flow Doppler was performed. Left Ventricle * The left ventricle is grossly normal size. * Left ventricular systolic function is normal. Atria * The left atrial size is normal. * Right atrial size is normal. Mitral Valve * The mitral valve anatomy is normal. * There is no vegetation seen on the mitral valve. * Significant mitral regurgitation is absent. Tricuspid Valve * The tricuspid valve is not well visualized, but is grossly normal. Aortic Valve * The aortic valve is normal in structure and function. * The aortic valve is trileaflet. * There is no aortic valvular vegetation. * Trace aortic regurgitation. Pericardium * There is no pericardial effusion. TTE: Interpretation Summary * Name: DARRELL FERRARA [id number] Study Date: 10/20/2017 01:27 PM BP: 137/82 mmHg * Patient Location: [facility]\S\2 HR: 84 * : 1945 (M/d/yyyy) Gender: Male Height: 69 in * Age: 72 yrs Ethnicity: AA Weight: 168 lb * Ordering Physician: Rodger Hopkins * Referring Physician: Jamarcus MURPHY * Performed By: Kandace Kerr RDCS * * Reason For Study: R/O valvular vegetations * BSA: 1.9 m2 * -- Conclusions -- * Left ventricular systolic function is normal. * No regional wall motion abnormalities noted. * Ejection Fraction = 55-60%. * There is mild mitral regurgitation. * There is mild tricuspid regurgitation. * No obvious valvular vegetation. Procedure Details * A two-dimensional transthoracic echocardiogram, with color flow Doppler was performed. Left Ventricle * The left ventricle is normal in size. * There is borderline concentric left ventricular hypertrophy. * Left ventricular systolic function is normal. * Ejection Fraction = 55-60%. * No regional wall motion abnormalities noted. Right Ventricle * The right ventricle is normal in size and function. Atria * The left atrial size is normal. * Right atrial size is normal. * There is no evidence of atrial septal defect, but resolution does not allow assessment for a patent foramen ovale. Mitral Valve * The mitral valve anatomy is normal. * There is no vegetation seen on the mitral valve. * There is no mitral valve stenosis. * There is mild mitral regurgitation. Tricuspid Valve * The tricuspid valve anatomy is normal. * There is no tricuspid valve vegetation. * There is no tricuspid stenosis. * There is mild tricuspid regurgitation. Aortic Valve * The aortic valve is normal in structure and function. * There is no aortic valvular vegetation. * Aortic stenosis is absent. * There is no significant aortic regurgitation. Pulmonic Valve * The pulmonary valve is not well seen, but the Doppler examination is normal without significant regurgitation or stenosis. Great Vessels * The aortic root is normal size. * The pulmonary is not well visualized. Pericardium/Pleural * There is no pericardial effusion. Great Vessels * IVC not well visualized. * BRONCHOSCOPY: Operative Report Operative Date Oct 19, 2017. Pre-Operative Diagnosis BRONCHOPNEUMONIA Post-Operative Diagnosis BRONCHOPNEUMONIA Procedure(s) Performed BRONCHOSCOPY Surgeon DR HOPKINS Estimated Blood Loss 0 Findings Chronic mucopurulent bronchitis Specimens RIGHT LUNG AND LEFT LUNG WASHING I attest to the content of the Intraoperative Record and any orders documented therein. Any exceptions are noted below. <Electronically signed by Rodger Hopkins M.D.> Signed: 10/19/17 0951 Signed: The status of this report is Signed * If report status is Draft, the document has not been finalized by the responsible provider. BILATERAL UPPER EXTREMITY VENOUS DOPPLER HISTORY: spiking fever to rule out DVT in bilateral upper extremity COMPARISON STUDY: None. FINDINGS: The bilateral internal jugular, subclavian, axillary, basilic, brachial, radial, and ulnar veins are patent. There is thrombus within the bilateral cephalic veins from the proximal to mid forearm. IMPRESSION: 1. No DVT within the right or left upper extremity. 2. Thrombus within the bilateral cephalic veins from the proximal to mid forearms. Electronically signed by: Joel Ring M.D. 10/25/2017 8:04 PM Dictated Date/Time: 10/25/2017 8:02 PM The status of this report is Signed. Draft = Not yet reviewed or approved by Radiologist. Signed = Reviewed and approved by Radiologist. CHEST 2 VIEWS ROUTINE CLINICAL HISTORY: bilat pleural effusions dyspnea COMPARISON STUDY: 10/17/2017 FINDINGS: Mildly improved aeration left base and right midlung. Moderate infiltrative change persists. Slight blunting left lateral costophrenic angle. Right costophrenic angle is sharp. No significant cardiac enlargement. IMPRESSION: Bilateral parenchymal infiltrates slightly improved from the prior study. Trace pleural fluid left lung base. The above report was generated using voice recognition software. It may contain grammatical, syntax or spelling errors. Electronically signed by: Robel Altamirano M.D. 10/25/2017 12:29 PM Dictated Date/Time: 10/25/2017 12:28 PM The status of this report is Signed. Draft = Not yet reviewed or approved by Radiologist. Signed = Reviewed and approved by Radiologist. LEFT HIP CT CT DOSE: 194.18 mGy.cm HISTORY: left hip pain , spiking fever of unknown source, TECHNIQUE: Multiaxial CT images of the left hip were performed and reformatted in the sagittal and coronal plane without the use of contrast. A dose lowering technique was utilized adhering to the principles of ALARA. COMPARISON: Abdomen and pelvis CT 10/19/2017. FINDINGS: There is subcutaneous edema along the left hip. No loculated fluid collections identified to suggest an abscess. No significant left hip effusion. There is a Hamm catheter within the bladder. Mild presacral edema. Colonic diverticulosis. No fracture or dislocation within the left hip. Severe osteoarthritis within the left hip demonstrated by cartilage space narrowing, gnov-[id number]-zope articulation, subchondral sclerosis, and subchondral cystic change. Small arches visualized carotid focus within the left iliac wing remains stable. IMPRESSION: 1. No fracture or dislocation within the left hip. 2. Severe left hip osteoarthritis is again noted. 3. Subcutaneous edema throughout the left hip. No loculated fluid collections to suggest an abscess. Electronically signed by: Joel Ring M.D. 10/22/2017 12:05 PM Dictated Date/Time: 10/22/2017 11:47 AM The status of this report is Signed. Draft = Not yet reviewed or approved by Radiologist. Signed = Reviewed and approved by Radiologist CT ABD/PELVIS COMBO CLINICAL HISTORY: Abdominal pain, fever, possible pancreatic abscess. COMPARISON STUDY: October 05, 2017 TECHNIQUE: Unenhanced images were obtained to the abdomen and pelvis. The patient was then scanned in a dynamic helical fashion during intravenous administration of 94 cc of Optiray 320. A dose lowering technique was utilized adhering to the principles of ALARA. CT DOSE: 780.71 mGy.cm FINDINGS: Lower chest: There is respiratory motion artifact. There are bilateral pleural effusions with bibasal or airspace opacities. Liver: The contrast-enhanced liver is normal in size, contour, and attenuation. There is no intrahepatic biliary ductal dilatation. The hepatic veins and portal veins are patent. Gallbladder: Unremarkable. Spleen: Normal in size and attenuation. Pancreas: No focal pancreatic masses are visualized. There are no peripancreatic fluid collections. A 3 mm hypodensity with the pancreatic tail is of fat attenuation likely represents fat interdigitation. Adrenal glands: Unremarkable. Kidneys: No renal calculi are visualized. There are several subcentimeter left renal hypodensities. These are too small to characterize but likely represent cysts. There is a 14 mm subcapsular left renal fluid collection. Bowel: There are no transition zones indicate bowel obstruction. There is colonic diverticulosis. No acute diverticulitis is demonstrated. The appendix appears normal. Peritoneum: There is minimal ascites. There is persistent presacral fluid/edema. No free air is visualized. Vasculature: The abdominal aorta is normal in course and caliber. Adenopathy: There is stable borderline enlarged left external iliac artery lymph node Pelvic viscera: There is an indwelling Hamm catheter. Skeletal structures: There are advanced arthritic changes within the left hip. There is mild anasarca. IMPRESSION: 1. Bilateral pleural effusions with bibasal airspace opacities 2. No peripancreatic fluid collections are visualized 3. No evidence of bowel obstruction. No evidence of free air 4. Normal appendix 5. Diverticulosis. No evidence of acute diverticulitis 6. Minimal ascites 7. 14 mm subcapsular left renal fluid collection Electronically signed by: Anthony Sanchez M.D. 10/19/2017 1:38 PM Dictated Date/Time: 10/19/2017 1:29 PM The status of this report is Signed. Draft = Not yet reviewed or approved by Radiologist. Signed = Reviewed and approved by Radiologist CT SCAN OF THE CHEST WITHOUT IV CONTRAST CLINICAL HISTORY: Hypoxia. COMPARISON STUDY: Chest x-ray dated 10/17/2017. Chest CT dated 09/23/2017. TECHNIQUE: CT scan of the thorax was performed from the thoracic inlet to the upper abdomen. Images are reviewed in the axial, sagittal, and coronal planes. IV contrast was not administered for this examination as per the referring clinician. A dose lowering technique was utilized adhering to the principles of ALARA. CT DOSE: 217.58 mGy.cm FINDINGS: Thyroid: Imaged portions of the thyroid gland are normal in size and attenuation. Thoracic aorta: There is mild atherosclerotic calcification of the thoracic aorta, which is normal in caliber and demonstrates standard 3-vessel arch anatomy. Heart: The heart is mildly enlarged and without pericardial effusion. Lungs and pleural spaces: There are small to moderate pleural effusions, right larger than left with associated atelectasis. Fluid is noted along the left major fissure. Diffuse subpleural reticulation is identified. Groundglass change is present throughout both lungs, most confluent in the right upper lobe. Mediastinum: There is no mediastinal lymphadenopathy. Calli: Not well assessed without IV contrast. Axillae: There is no axillary lymphadenopathy. Upper abdomen: There is a small hiatal hernia. There is trace perihepatic fluid. Partially visualized upper abdominal viscera is otherwise within normal limits. Skeletal structures: The skeletal structures are osteopenic. No lytic or blastic bony lesions are seen. IMPRESSION: 1. Right larger than left pleural effusions have significantly increased in size from 09/23/2017. 2. Cardiomegaly. 3. Groundglass change is present throughout both lungs, most confluent in the right upper lobe. This appears somewhat cleared from 09/23/2017. Differential considerations include an infectious/inflammatory pneumonitis, a component of pulmonary edema, or less pulmonary hemorrhage or a chronic hypersensitivity reaction. Clinical correlation will be essential. 4. There is no mediastinal lymphadenopathy. 5. Trace perihepatic fluid is noted. Electronically signed by: Celestine Quiroz M.D. 10/17/2017 8:16 AM Dictated Date/Time: 10/17/2017 8:11 AM The status of this report is Signed. Draft = Not yet reviewed or approved by Radiologist. Signed = Reviewed and approved by Radiologist (RENAL)RETROPERITON COMP CLINICAL HISTORY: 72 years-old Male presenting with recurrent uti. TECHNIQUE: Real-time grayscale and limited color Doppler ultrasound imaging of the kidneys and bladder was performed. COMPARISON: CT from 10/05/2017. FINDINGS: Right kidney: Normal echogenicity of renal parenchyma. Right kidney measures 10.9 cm. No hydronephrosis. No convincing evidence of calculus or mass. Normal perfusion. Left kidney: Normal echogenicity of renal parenchyma. Left kidney measures 12.2 cm. No hydronephrosis. 1 cm upper pole simple appearing cyst. Normal perfusion. Bladder: Hamm catheter decompresses the urinary bladder. Other: None. IMPRESSION: 1. Essentially renal ultrasound. No obstruction. Electronically signed by: Suman Cope M.D. 10/16/2017 11:03 AM Dictated Date/Time: 10/16/2017 11:01 AM The status of this report is Signed. Draft = Not yet reviewed or approved by Radiologist. Signed = Reviewed and approved by Radiologist. ULTRASOUND L VENOUS DOPP LOWER EXT UNILAT CLINICAL HISTORY: Pain, swelling COMPARISON STUDY: No previous studies for comparison. FINDINGS: Real-time and color flow Doppler imaging were performed. Flow was seen within the femoral, popliteal and calf veins with no intraluminal thrombus demonstrated. The saphenous vein is patent. IMPRESSION: No evidence of left lower extremity DVT. Electronically signed by: Anthony Sanchez M.D. 10/06/2017 1:46 PM Dictated Date/Time: 10/06/2017 1:45 PM The status of this report is Signed. Draft = Not yet reviewed or approved by Radiologist. Signed = Reviewed and approved by Radiologist. Consultations: Infectious disease Hematology/oncology Urology Pulmonary Cardiology Medication Reconciliation New Medications: Magnesium Oxide (Magnesium-Oxide) 400 Mg Tab 400 MG PO BID for 3 Days, TAB Nutritional Supplements (Boost) 1 Liq Liq 1 CAN PO BIDM for 3 Days Saccharomyces Boulardii (Florastor) 250 Mg Cap 250 MG PO DAILY for 3 Days, CAP Vancomycin HCl (Vancomycin HCl + Syrspend) 50 Mg/Ml Adriana 250 MG PO Q6 for 4 Days, #14 DOSE Continued Medications: Acetaminophen (Tylenol) 500 Mg Tab 500 MG PO TID, TAB Amlodipine (Norvasc) 10 Mg Tab 10 MG PO DAILY, TAB Aspirin (Aspirin 81 Low Dose) 81 Mg Chw 1 TAB PO DAILY Cetirizine (Zyrtec) 10 Mg Tab 10 MG PO DAILY, TAB Finasteride (Proscar) 5 Mg Tab 5 MG PO DAILY, TAB Hydralazine Hcl (Apresoline) 50 Mg Tab 1 TAB PO TID for 30 Days, #90 TAB 5 Refills Lovastatin (Mevacor) 20 Mg Tab 20 MG PO HS, TAB Metoprolol Tartrate (Lopressor) (Lopressor) 25 Mg Tab 50 MG PO BID, TAB Pantoprazole (Protonix) 40 Mg Tab 40 MG PO BID, #30 Sodium Bicarbonate (Antacid) (Sodium Bicarbonate) 650 Mg Tab 2 TAB PO BID for 30 Days, #120 TAB 0 Refills Tamsulosin Hcl (Flomax) 0.4 Mg Cap 0.4 MG PO BID, CAP Discontinued Medications: Ceftriaxone Sodium (Rocephin) 1 Gm Inj 1 GM IV DAILY for 20 Days, #20 VIAL 0 Refills Referrals At Discharge Follow up Referrals: Urologist Referral - Within 2 Weeks with Jordan Prabhakar II., DO Discharge Exam Review of Systems: Constitutional: + fever, + chills, No sweats, No weakness, No fatigue Eyes: No worsening of vision ENT: No hearing loss Respiratory: No cough, No shortness of breath, No hemoptysis Cardiovascular: No chest pain, No edema, No palpitations Abdomen: No pain, No nausea, No vomiting, No diarrhea, No constipation Musculoskeletal: No joint pain, No muscle pain, No swelling, No calf pain Genitourinary - Male: + urinary retention (Hamm placed ) Neurologic: No weakness, No numbness/tingling Psychiatric: No depression symptoms Endocrine: No fatigue Hematologic / Lymphatic: No abnormal bleeding/bruising Integumentary: No rash, No itch, No new/changing skin lesions Physical Exam: General Appearance: no apparent distress Eyes: normal inspection, PERRL ENT: hearing grossly normal Neck: supple Respiratory/Chest: lungs clear, no respiratory distress, no accessory muscle use Cardiovascular: regular rate, rhythm Abdomen / GI: normal bowel sounds, non tender, soft Extremities: no calf tenderness, no pedal edema 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: alert, normal mood/affect, oriented x 3 Skin: normal color, warm/dry, no rash Hospital Course 72 y/o M was admitted to [facility] from 09/17-10/03 for urosepsis due to pansentivie Ecoli and prostatitis, acute renal failure and elevated LFTs. He was discharged on IV ceftriaxone for another 20 days for prostatitis. He was readmitted on October 07, 2017, because of spiking fever and generalized weakness. Fever of unknown origin: - ID consulted, appreciate recommendations- continue Vanco course, stopped all other antibiotic treatment - Pulmonary consulted- s/p bronchoscopy on 10/19- washings w/ cristino albicans (ID /pulmonary does NOT think source of fevers), pathology negative for malignancy - TTE negative for vegetations; KAREEM today to further assess for vegetations negative - L hip CT negative for abscess - Abdominal CT negative for prostate abscess - Renal US unremarkable - Bilateral lower extremity Doppler negative for DVT - Bilateral upper extremity Doppler negative for DVT, bilateral thrombus of cephalic vein- discussed w/ vascular surgery, treatment not indicated - ?C. diff, although treatment almost completed and fevers continue - BCx negative x3; UCx negative x2; MRSA swab negative; rheumatological workup negative; negative bone scan 09/22/17 - Discussed w/ hematology/oncology, Dr. Kc- does not believe hematological disease Mildly elevated TSH: Recommend repeat in 6-8 weeks Hypophosphatemia- RESOLVED: Recheck phosphate level and replace PRN Hypomagnesemia- RESOLVED: Continue Mag-Ox supplement, follow mag level and replace PRN Hypokalemia- RESOLVED: Replaced w/ KCL supplement, follow PRP and replace PRN C diff colitis: - Continue Vancomycin PO QID x21 days- last day of treatment 10/30 - Contact precautions Recent GI bleed w/ gastric ulcer on EGD 09/30/17: - Follow H&H- STABLE - Continue Protonix BID - Iron, B12, folate- WNL Recent SONY, ATN- RESOLVED: Continue to follow PRP L hip pain, OA: - L hip CT- severe OA, no dislocation or evidence of abscess - Continue pain control w/ Percocet and Tylenol PRN Moderate to severe protein malnutrition with prealbumin 11: Dietitian consulted - Boost BID and snack HS HTN- STABLE: Continue Norvasc 10 mg daily, Hydralazine 50 mg TID, Lopressor 50 mg BID HLD: Continue Lovastatin HS BPH, h/o prostatitis: - Hamm placed- discontinue for TOV, failed- Hamm placed prior to discharge - PSA 1.4 - Continue Proscar 5 mg daily, Flomax 0.4 mg daily - Urology consulted- biopsy of prostate nodule outpatient, f/u outpatient - Hematology/oncology consulted- no recommendations, signed-off Hepatitis A, transaminitis, likely from sepsis last admission- RESOLVED GI prophylaxis: Protonix BID DVT prophylaxis: Heparin SQ BID CODE STATUS: LEVEL V, DNR Disposition: Discharge to [facility] Total Time Spent: Greater than 30 minutes This includes examination of the patient, discharge planning, medication reconciliation, and communication with other providers. Discharge Instructions Please refer to the electronic Patient Visit Report (Discharge Instructions) for additional information. Follow-Up Please follow-up with [facility] provider within 24-48 hours Please follow-up with Urology within 1-2 weeks Please follow-up/keep all of your subspecialty appointments Additional [facility] To [facility]
[2017-10-27 13:36] VITALS: TEMP 37.4
[2017-10-27] MEDS: OXYCODONE/ACETAMINOPHEN 5-325 TAB PO PRN (13:44)
[2017-10-27 13:45] VITALS: BP 133/64
[2017-10-27 13:53] VITALS: BP 133/64; PULSE 101; TEMP 37.4; O2SAT 95
== END 2017-10-27 16:20 | disposition home or self-care (01) | DRG 853 ==
LOC: EDBD 12:36 → C.EDA 12:37 → C.2T 15:16 → ENRESERV 16:59 → OBSVTOIN 10-06 15:45 → ENRESERV 10-12 23:19 → C.MS2W 10-13 00:49 → C.MS4W 10-22 19:48
PROVIDERS: ADMIT Family Medicine; ATTEND Hospitalist
PROC: 0B9J8ZX Drainage of Left Lower Lung Lobe, Via Natural or Artificial Opening Endoscopic, Diagnostic (ICD-10-PCS; principal; 2017-10-19 09:00)
PROC: 0B938ZX Drainage of Right Main Bronchus, Via Natural or Artificial Opening Endoscopic, Diagnostic (ICD-10-PCS; principal; 2017-10-19 09:00)
DX: R50.9 Fever, unspecified (principal); J18.9 Pneumonia, unspecified organism; E43 Unspecified severe protein-calorie malnutrition; A04.72 Enterocolitis due to Clostridium difficile, not specified as recurrent; J90 Pleural effusion, not elsewhere classified; I82.613 Acute embolism and thrombosis of superficial veins of upper extremity, bilateral; Z66 Do not resuscitate; G89.29 Other chronic pain; E11.9 Type 2 diabetes mellitus without complications; I10 Essential (primary) hypertension; D64.9 Anemia, unspecified; N40.0 Benign prostatic hyperplasia without lower urinary tract symptoms; K57.90 Diverticulosis of intestine, part unspecified, without perforation or abscess without bleeding; K25.9 Gastric ulcer, unspecified as acute or chronic, without hemorrhage or perforation; R74.0 Nonspecific elevation of levels of transaminase and lactic acid dehydrogenase [LDH]; R00.0 Tachycardia, unspecified; R74.8 Abnormal levels of other serum enzymes; M16.12 Unilateral primary osteoarthritis, left hip; E88.09 Other disorders of plasma-protein metabolism, not elsewhere classified; N41.9 Inflammatory disease of prostate, unspecified; E83.39 Other disorders of phosphorus metabolism; E83.42 Hypomagnesemia; E87.6 Hypokalemia; J41.1 Mucopurulent chronic bronchitis; Z79.82 Long term (current) use of aspirin; Z87.01 Personal history of pneumonia (recurrent); Z86.19 Personal history of other infectious and parasitic diseases; Z87.891 Personal history of nicotine dependence; Z83.3 Family history of diabetes mellitus; Z80.42 Family history of malignant neoplasm of prostate

== ENCOUNTER 2017-10-31 12:40 | Emergency (ER) | payer OTHER ==
[~2017-10-31] VITALS: Ht 175.3 cm; Wt 69.3 kg
[~2017-10-31 12:40] MED LIST changes: -APR25 PO; +ASPI1CHW12 PO; -ASPI81TA28 PO; -CEFT1INJ26 IV; -GLIM4TAB PO; +HYDR-4717 PO; +METO25TA56 PO; -METO50TA16 PO; +MGNO400 PO; +NUTR-7 PO; -PANT1TAB3 PO; +PANT40TA PO; -PRD10 PO; +SACC250C3 PO; +VANC1SUS PO
[2017-10-31] MEDS ORDERED: SODIUM CHLORIDE 0.9% 1000ML 1,000 ML IV STA (12:58)
[2017-10-31 13:14] VITALS: O2SAT 97; Ht 175.3 cm; Wt 69.3 kg
[2017-10-31 13:15] LABS: BASO % 0.2 %; BASO ABS # 0.02 K/uL (0-0.2); EOS % 2.3 %; HEMATOCRIT 28.1 % (42-52); HEMOGLOBIN 9.2 g/dL (14.0-18.0); IG# 0.02 K/uL (0.00-0.02); LYMPH % 25.4 %; LYMPH ABS # 2.24 K/uL (1.2-3.4); MEAN CELL VOLUME 79.4 fL (80-100); MEAN CORPUSCULAR HGB CONC 32.7 g/dl (32-36); MEAN PLATELET VOLUME 9.4 fL (7.4-10.4); MONO % 14.9 %; MONO ABS # 1.31 K/uL (0.11-0.59); NEUT ABS # 5.02 K/uL (1.4-6.5); PLATELET COUNT 406 K/uL (130-400); RED CELL DISTRIBUTION WIDTH CV 16.1 % (11.5-14.5); RED CELL DISTRIBUTION WIDTH SD 47.3 fL (36.4-46.3); WHITE BLOOD COUNT 8.81 K/uL (4.8-10.8)
[2017-10-31] MEDS ORDERED: OPTIRAY 320 IV PRN (13:15)
[2017-10-31 13:34] LABS: CALCIUM 8.3 mg/dl (8.5-10.1); CREATININE 1.49 mg/dl (0.60-1.40); POTASSIUM 3.8 mmol/L (3.5-5.1)
[2017-10-31 13:37] LABS: TOTAL PROTEIN 7.2 gm/dl (6.4-8.2)
[2017-10-31 14:06] LABS: INR 1.1 (0.9-1.1); PTT PATIENT 30.2 SECONDS (21.0-31.0)
[2017-10-31 14:18] LABS: INFLUENZA A PCR Neg for Influ A (NEG); INFLUENZA B PCR Neg for Influ B (NEG)
--- NOTE | 2017-10-31 14:48 | DIAGNOSTIC IMAGING REPORT ---
(CHEST FOR PE) ANGIO WITH CT DOSE: 234.81 mGy.cm HISTORY: 72 years-old Male with presents with acute mid thoracic pain. TECHNIQUE: Multiple CTA images of the chest were obtained after the intravenous administration of 92 ml Optiray 320. Coronal and sagittal MIPS were obtained from the axial data set and were submitted for review. A dose lowering technique was utilized adhering to the principles of ALARA. COMPARISON: Chest CT 10/17/2017, chest radiograph 10/25/2017, duplex venous Doppler study 10/25/2017. FINDINGS: CTA: There is mild multichamber cardiac enlargement. No pericardial effusion. The thoracic aorta demonstrates mild to moderate atherosclerosis without aneurysm or dissection. The imaged great vessels appear to be patent without aneurysm or dissection. There is a large calcified plaque at the origin of the right subclavian artery causing less than 50% narrowing. Image great vessels appear patent. The pulmonary arterial tree is opacified to the level of the segmental branches. The distal segmental and subsegmental branches are normal in secondary to respiratory motion. No focal filling defects identified to suggest pulmonary thromboembolic disease. CT CHEST: Thyroid is homogeneous without dominant nodule identified. Mildly enlarged right hilar lymph nodes measure up to 11 mm in short axis. There is a trace left and small right pleural effusion, decreased from comparison. No pneumothorax. Mild intralobular septal thickening of the right upper lobe and bilateral lung bases redemonstrated. Patchy multilobar distribution of groundglass opacities redemonstrated, most pronounced within the right upper and bilateral basal lower lobes with slight improvement of the areas of bibasilar consolidation from comparison chest CT 10/17/2017. Evaluation is limited secondary to respiratory motion. Areas of mild mucous plugging are noted, notably within the left upper lobe, image 195 of series 4. Central airways are patent. Fatty infiltration of the liver. No acute abnormality of the imaged upper abdomen. Mild bilateral gynecomastia. No suspicious lytic or blastic bony lesions. IMPRESSION: 1. Limited study secondary to respiratory motion. No acute aortic pathology or evidence of pulmonary thromboembolic disease. 2. Decreased size of bilateral pleural effusions, now with small amount of pleural fluid on the right and trace amount on the left. Redemonstration of patchy multifocal multilobar distribution of groundglass opacities, most pronounced within the right upper and bilateral lower lobes with decreased amount of consolidation from comparison chest CT 10/17/2017. Again, these findings would favor infectious or inflammatory pneumonitis with superimposed pulmonary edema and atelectasis also within the differential. 3. Cardiomegaly. The above report was generated using voice recognition software. It may contain grammatical, syntax or spelling errors. Electronically signed by: Jamal Whitlock M.D. 10/31/2017 2:47 PM Dictated Date/Time: 10/31/2017 2:37 PM
[2017-10-31] MEDS ORDERED: MISCCAP80 (15:09)
[2017-10-31 15:29] VITALS: BP 132/77; PULSE 88; TEMP 37.2; O2SAT 95
--- NOTE | 2017-10-31 16:09 | EMERGENCY ROOM VISIT NOTE ---
History Report prepared by Kary: Blaise Smith Under the Supervision of: Dr. Armin Hamlin M.D. First contact with patient: 12:43 Stated Complaint: ILLNESS History of Present Illness The patient is a 72 year old male who presents to the Emergency Room with complaints of a persistent illness for the past few days. The patient states that he had a fever of 100.8, he feels "sluggish", and he states that he feels weak. He additionally notes that he has been having some chest congestion and a cough that is unproductive. He is complaining of some right thoracic pain that feels like a sharp pain for the past two days. He denies any vomiting. The patient notes that he has been having diarrhea, and he has C Diff and is being treated with vancomycin. He reports that he is having some trouble breathing with moving around. Source of History: patient Onset: the past few days Position: other (global) Quality: other (illness) Timing: other (persistent) Associated Symptoms: + fevers, + cough, + diarrhea, + weakness, No vomiting Note: Associated symptoms: Chest congestion, right shoulder pain, and difficulty breathing Review of Systems See HPI for pertinent positives & negatives. A total of 10 systems reviewed and were otherwise negative. Past Medical & Surgical Medical Problems: (1) Anemia (2) Bacteremia due to Gram-negative bacteria (3) BPH (benign prostatic hyperplasia) (4) C. difficile colitis (5) Chronic left hip pain (6) Diabetes (7) Fever (8) Gram-negative bacteremia (9) Hepatitis A (10) HTN (hypertension) (11) Indwelling Hamm catheter present (12) Leukocytosis (13) Pneumonia (14) Severe sepsis with acute organ dysfunction (15) Thrombocytopenia Social History Smoking Status: Never Smoker Drug Use: none Housing Status: other Occupation Status: other Current/Historical Medications Scheduled Acetaminophen (Tylenol), 500 MG PO TID Amlodipine (Norvasc), 10 MG PO DAILY Aspirin (Aspirin 81 Low Dose), 1 TAB PO DAILY Cetirizine (Zyrtec), 10 MG PO DAILY Finasteride (Proscar), 5 MG PO DAILY Hydralazine Hcl (Apresoline), 1 TAB PO TID Lovastatin (Mevacor), 20 MG PO HS Magnesium Oxide (Magnesium-Oxide), 400 MG PO BID Metoprolol Tartrate (Lopressor) (Lopressor), 50 MG PO BID Pantoprazole (Protonix), 40 MG PO BID Sodium Bicarbonate (Antacid) (Sodium Bicarbonate), 2 TAB PO BID Tamsulosin Hcl (Flomax), 0.4 MG PO BID Vancomycin HCl (Vancomycin HCl + Syrspend), 250 MG PO Q6 Miscellaneous Medications Probiotic Product (Probiotic) Allergies Coded Allergies: No Known Allergies (Unverified , 10/31/17) Physical Exam Vital Signs Date Time Temp Pulse Resp B/P (MAP) Pulse Ox O2 Delivery O2 Flow Rate FiO2 10/31/17 15:29 37.2 88 16 132/77 95 10/31/17 15:27 88 16 132/77 95 Room Air 10/31/17 14:50 91 16 138/74 95 10/31/17 14:10 99 23 94 Room Air 10/31/17 14:01 132/73 10/31/17 13:40 92 18 97 Room Air 10/31/17 13:31 122/67 10/31/17 13:14 90 20 107/63 97 Room Air 10/31/17 13:14 97 Room Air 10/31/17 13:12 107/63 10/31/17 13:10 93 27 10/31/17 12:50 97 10/31/17 12:40 37.2 98 18 129/69 96 Room Air 10/31/17 12:40 129/69 Physical Exam Constitutional: Vital signs reviewed. Eyes: Pupils are equal round reactive to light. Conjunctiva are noninjected. ENT: Pharynx is clear without erythema or exudate. Mucous membranes are moist. Neck supple without meningeal signs. Respiratory: Clear to auscultation bilaterally. Breath sounds are equal bilaterally. Cardiovascular: Regular rate and rhythm. No rubs or gallops. GI: Soft, nondistended and nontender. Bowel sounds are present. Musculoskeletal: No peripheral edema. No lower extremity tenderness. Integumentary: No cyanosis. Neurological: The patient is awake and alert. No focal deficits. Psychiatric: Normal affect. Medical Decision & Procedures ER Provider Diagnostic Interpretation: Radiology results as stated below per my review and the radiologist's interpretation: (CHEST FOR PE) ANGIO WITH CT DOSE: 234.81 mGy.cm HISTORY: 72 years-old Male with presents with acute mid thoracic pain. TECHNIQUE: Multiple CTA images of the chest were obtained after the intravenous administration of 92 ml Optiray 320. Coronal and sagittal MIPS were obtained from the axial data set and were submitted for review. A dose lowering technique was utilized adhering to the principles of ALARA. COMPARISON: Chest CT 10/17/2017, chest radiograph 10/25/2017, duplex venous Doppler study 10/25/2017. FINDINGS: CTA: There is mild multichamber cardiac enlargement. No pericardial effusion. The thoracic aorta demonstrates mild to moderate atherosclerosis without aneurysm or dissection. The imaged great vessels appear to be patent without aneurysm or dissection. There is a large calcified plaque at the origin of the right subclavian artery causing less than 50% narrowing. Image great vessels appear patent. The pulmonary arterial tree is opacified to the level of the segmental branches. The distal segmental and subsegmental branches are normal in secondary to respiratory motion. No focal filling defects identified to suggest pulmonary thromboembolic disease. CT CHEST: Thyroid is homogeneous without dominant nodule identified. Mildly enlarged right hilar lymph nodes measure up to 11 mm in short axis. There is a trace left and small right pleural effusion, decreased from comparison. No pneumothorax. Mild intralobular septal thickening of the right upper lobe and bilateral lung bases redemonstrated. Patchy multilobar distribution of groundglass opacities redemonstrated, most pronounced within the right upper and bilateral basal lower lobes with slight improvement of the areas of bibasilar consolidation from comparison chest CT 10/17/2017. Evaluation is limited secondary to respiratory motion. Areas of mild mucous plugging are noted, notably within the left upper lobe, image 195 of series 4. Central airways are patent. Fatty infiltration of the liver. No acute abnormality of the imaged upper abdomen. Mild bilateral gynecomastia. No suspicious lytic or blastic bony lesions. IMPRESSION: 1. Limited study secondary to respiratory motion. No acute aortic pathology or evidence of pulmonary thromboembolic disease. 2. Decreased size of bilateral pleural effusions, now with small amount of pleural fluid on the right and trace amount on the left. Redemonstration of patchy multifocal multilobar distribution of groundglass opacities, most pronounced within the right upper and bilateral lower lobes with decreased amount of consolidation from comparison chest CT 10/17/2017. Again, these findings would favor infectious or inflammatory pneumonitis with superimposed pulmonary edema and atelectasis also within the differential. 3. Cardiomegaly. The above report was generated using voice recognition software. It may contain grammatical, syntax or spelling errors. Electronically signed by: Jamal Whitlock M.D. 10/31/2017 2:47 PM Dictated Date/Time: 10/31/2017 2:37 PM Laboratory Results 10/31/17 13:00 Red Blood Count 3.54, Mean Corpuscular Volume 79.4, Mean Corpuscular Hemoglobin 26.0, Mean Corpuscular Hemoglobin Concent 32.7, Mean Platelet Volume 9.4, Neutrophils (%) (Auto) 57.0, Lymphocytes (%) (Auto) 25.4, Monocytes (%) (Auto) 14.9, Eosinophils (%) (Auto) 2.3, Basophils (%) (Auto) 0.2, Neutrophils # (Auto ) 5.02, Lymphocytes # (Auto) 2.24, Monocytes # (Auto) 1.31, Eosinophils # (Auto ) 0.20, Basophils # (Auto) 0.02 10/31/17 13:00 Test 10/31/17 13:00 10/31/17 13:09 10/31/17 13:14 10/31/17 13:20 White Blood Count 8.81 K/uL (4.8-10.8) Red Blood Count 3.54 M/uL (4.7-6.1) Hemoglobin 9.2 g/dL (14.0-18.0) Hematocrit 28.1 % (42-52) Mean Corpuscular Volume 79.4 fL (80-100) Mean Corpuscular Hemoglobin 26.0 pg (25-34) Mean Corpuscular Hemoglobin Concent 32.7 g/dl (32-36) Platelet Count 406 K/uL (130-400) Mean Platelet Volume 9.4 fL (7.4-10.4) Neutrophils (%) (Auto) 57.0 % Lymphocytes (%) (Auto) 25.4 % Monocytes (%) (Auto) 14.9 % Eosinophils (%) (Auto) 2.3 % Basophils (%) (Auto) 0.2 % Neutrophils # (Auto) 5.02 K/uL (1.4-6.5) Lymphocytes # (Auto) 2.24 K/uL (1.2-3.4) Monocytes # (Auto) 1.31 K/uL (0.11-0.59) Eosinophils # (Auto) 0.20 K/uL (0-0.5) Basophils # (Auto) 0.02 K/uL (0-0.2) RDW Standard Deviation 47.3 fL (36.4-46.3) RDW Coefficient of Variation 16.1 % (11.5-14.5) Immature Granulocyte % (Auto) 0.2 % Immature Granulocyte # (Auto) 0.02 K/uL (0.00-0.02) Anion Gap 8.0 mmol/L (3-11) Est Creatinine Clear Calc Drug Dose 42.6 ml/min Estimated GFR () 52.8 Estimated GFR (Non- 45.6 BUN/Creatinine Ratio 4.5 (10-20) Calcium Level 8.3 mg/dl (8.5-10.1) Total Bilirubin 0.7 mg/dl (0.2-1) Aspartate Amino Transf (AST/SGOT) 19 U/L (15-37) Alanine Aminotransferase (ALT/SGPT) 14 U/L (12-78) Alkaline Phosphatase 178 U/L (45-117) Total Protein 7.2 gm/dl (6.4-8.2) Albumin 2.0 gm/dl (3.4-5.0) Globulin 5.2 gm/dl (2.5-4.0) Albumin/Globulin Ratio 0.4 (0.9-2) Bedside Troponin I < 0.030 ng/ml (0-0.045) Influenza Type A (RT-PCR) Neg for Influ A (NEG) Influenza Type B (RT-PCR) Neg for Influ B (NEG) Prothrombin Time 11.8 SECONDS (9.0-12.0) Prothromb Time International Ratio 1.1 (0.9-1.1) Activated Partial Thromboplast Time 30.2 SECONDS (21.0-31.0) Partial Thromboplastin Ratio 1.2 Test 10/31/17 13:28 10/31/17 14:11 Bedside Lactic Acid Venous 1.05 mmol/L (0.90-1.70) Urine Color YELLOW Urine Appearance CLEAR (CLEAR) Urine pH 8.5 (4.5-7.5) Urine Specific [place] 1.009 (1.000-1.030) Urine Protein NEG (NEG) Urine Glucose (UA) NEG (NEG) Urine Ketones NEG (NEG) Urine Occult Blood NEG (NEG) Urine Nitrite NEG (NEG) Urine Bilirubin NEG (NEG) Urine Urobilinogen NEG (NEG) Urine Leukocyte Esterase MODERATE (NEG) Urine WBC (Auto) >30 /hpf (0-5) Urine RBC (Auto) 0-4 /hpf (0-4) Urine Hyaline Casts (Auto) 1-5 /lpf (0-5) Urine Epithelial Cells (Auto) >30 /lpf (0-5) Urine Bacteria (Auto) NEG (NEG) Laboratory results as reviewed by me. Medications Administered Medications (Trade) Dose Ordered Sig/[place] Route Start Time Stop Time Status Last Admin Dose Admin Sodium Chloride 1,000 ml @ 999 mls/hr Q1H1M STAT IV 10/31/17 12:58 10/31/17 13:58 DC 10/31/17 13:13 999 MLS/HR ECG Per My Interpretation Indication: SOB/dyspnea Rate (beats per minute): 100 Rhythm: normal sinus Findings: other (No ST elevations. No PVCs) ED Course 1243: The patient was evaluated in room C4. A complete history and physical exam was performed. 1258: Sodium Chloride 1000 ml @ 999 mls/hr IV 1501: I reviewed the patients case with Dr. Cristiana SUAREZ Hospitalist and Quin Muniz PA-C who know the patient from his previous hospitalization. They states that there is no indication for hospitalization for the fever of unknown origin and he is expected to continue having this fever. They recommend outpatient workup of the fever of unknown origin. They do not recommend antibiotic treatment other than the vancomycin that he is already on from infectious disease. 1506: I reevaluated the patient, and I updated him on the results. 1508: I talked to Deneen, the nurse at the [facility], and I discussed the recommendations. The patient will be discharged. Medical Decision This is a 72-year-old male who presents with thoracic back pain and fever. Differential diagnosis includes fever of unknown origin, pneumonia, sepsis, pulmonary embolism, influenza. I did perform a limited focused review of portions of the patient's old chart on the electronic medical record. The patient was admitted in September for urosepsis, prostatitis, and acute renal failure. He was discharged on ceftriaxone. The patient was readmitted on October 07 for fevers, and he was diagnosed with C Diff and placed on vancomycin. He had a negative TTE and KAREEM. He was found to have bilateral thromboses of the cephalic veins and had no treatment. I did evaluate the patient as noted above. Patient is presenting with persistent fevers despite being admitted to the hospital recently for fever of unknown origin. He is on vancomycin for C. difficile infection. He is not on any other antibiotics. The patient has no other complaints other than feeling weak which is not new for him. IV access was established. The patient was placed on a continuous ingredient scaler helper. I did order and personally review the patient's 12-lead EKG and urinalysis as described above. I did order and review the patient's blood work as noted in the electronic medical record. His creatinine is 1.49. He was given a liter normal saline IV. The patient had a prior history of cephalic vein thrombosis. I did order a CT of the chest to rule out PE. I did review the images myself as well as the radiology report as described above. CT of the chest does not demonstrate any evidence of pulmonary embolism. He does have persistent groundglass opacities as described above. I did discuss the test results with the patient. I did discuss the case with the [facility] hospitalist team. They stated that the patient has had an extensive workup. He has had persistent fevers every day since he was hospitalized and was seen by infectious disease as well as pulmonology and other specialists. They recommended that the patient be discharged back to the present for outpatient workup of his fever of unknown origin. I did discuss this with the nurse at the [facility] the [facility]. He was discharged back to the [facility] for further workup. Medication Reconcilliation Current Medication List: was personally reviewed by me Blood Pressure Screening Patient's blood pressure: Normal blood pressure Consults Time Called: 1500 Consulting Physician: Dr. Cristiana SUAREZ Hospitalist and Quin Muniz PA-C Returned Call: 1501 I reviewed the patients case with Dr. Cristiana SUAREZ Hospitalist and Quin Muniz PA-C who know the patient from his previous hospitalization. They states that there is no indication for hospitalization for the fever of unknown origin and he is expected to continue having this fever. They recommend outpatient workup of the fever of unknown origin. They do not recommend antibiotic treatment other than the vancomycin that he is already on from infectious disease. Impression Primary Impression: Fever, unknown origin Additional Impressions: Right-sided thoracic back pain Clostridium difficile infection Scribe Attestation The scribe's documentation has been prepared under my direct and personally reviewed by me in its entirety. I confirm that the note above accurately reflects all work, treatment, procedures, and medical decision making performed by me. Departure Information Dispostion Other ([facility]) Referrals Jamarcus MURPHY (PCP) Forms HOME CARE DOCUMENTATION FORM, IMPORTANT VISIT INFORMATION, WORK / SCHOOL INSTRUCTIONS Patient Instructions Clostridium Difficile Infec, My [facility] Additional Instructions You have been examined and treated today on an emergency basis only. This is not a substitute for, or an effort to provide, complete comprehensive medical care. It is impossible to recognize and treat all injuries or illnesses in a single emergency department visit. It is therefore important that you follow up closely with the [facility] doctor. Return for worsening symptoms or if you develop chest pain, headache, vomiting, or any other concerning symptoms. Problem Qualifiers Additional Impressions: Right-sided thoracic back pain Chronicity: acute Qualified Codes: M54.6 - Pain in thoracic spine
== END 2017-10-31 15:31 ==
LOC: EDBD 12:40 → C.EDC 12:42
DX: R50.9 Fever, unspecified (principal); M54.6 Pain in thoracic spine; A04.72 Enterocolitis due to Clostridium difficile, not specified as recurrent; R91.8 Other nonspecific abnormal finding of lung field; R94.4 Abnormal results of kidney function studies; E11.9 Type 2 diabetes mellitus without complications; I10 Essential (primary) hypertension; Z79.82 Long term (current) use of aspirin

== ENCOUNTER → 2018-03-08 | Outpatient (CLI) | payer OTHER ==
[~2018-03-08] MED LIST changes: -AMLO-114 PO; +AMLO10TA3 PO; +CPR500 PO; +FRRS300 PO; -MGNO400 PO; +MTR500 PO; +NORT50CA PO; -NUTR-7 PO; +POLY335019 PO; -SACC250C3 PO; -VANC1SUS PO
--- NOTE | 2018-03-09 07:15 | DIAGNOSTIC IMAGING REPORT ---
BONE SCAN WHOLE BODY CLINICAL HISTORY: Prostate carcinoma COMPARISON STUDY: September 22, 2017, CT scan of the abdomen pelvis dated 02/20/2018 FINDINGS: The patient was injected with 26.5 mCi of technetium 99m MDP. Three-hour delayed whole body images were acquired. There is intense increased activity at the level of the left hip, corresponding to advanced arthritic changes on the prior CT scan. There are foci of increased activity within the knees and feet, likely on an arthritic and/or posttraumatic basis. There are no foci of increased activity viewed as suspicious for skeletal metastasis. There is a Hamm catheter present. IMPRESSION: There are no bone scan findings viewed as suspicious for skeletal metastasis. Electronically signed by: Anthony Sanchez M.D. 03/09/2018 7:14 AM Dictated Date/Time: 03/09/2018 7:11 AM
== END | disposition home or self-care (01) ==
LOC: C.NUCL 07:03
PROVIDERS: ATTEND Family Medicine
DX: C61 Malignant neoplasm of prostate (principal); R33.9 Retention of urine, unspecified; D50.9 Iron deficiency anemia, unspecified; I10 Essential (primary) hypertension; E11.9 Type 2 diabetes mellitus without complications; M86.09 Acute hematogenous osteomyelitis, multiple sites

== ENCOUNTER → 2018-03-22 | Outpatient (CLI) | payer OTHER ==
[~2018-03-22] MED LIST changes: +OPTIRAY 320 IV PRN
--- NOTE | 2018-03-22 13:37 | DIAGNOSTIC IMAGING REPORT ---
CT OF THE ABDOMEN AND PELVIS WITH CONTRAST CLINICAL HISTORY: Prostate cancer. COMPARISON STUDY: CT of the abdomen pelvis February 20, 2018. Bone scan March 08, 2018. TECHNIQUE: Following IV administration of 91 mL of Optiray-320, axial images of the abdomen and pelvis were obtained from the lung bases to the proximal femurs. Images were reviewed in the axial, sagittal, and coronal planes. IV contrast was administered without complication. A dose lowering technique was utilized adhering to the principles of ALARA. Oral contrast was administered. CT DOSE: 340.34 mGy.cm FINDINGS: No hepatic lesions are present. The spleen, adrenal glands, kidneys and pancreas are unchanged with exception of multifocal scarring within the left kidney. There is no biliary or pancreatic ductal dilatation. No pneumatosis, free air or portal venous gas is present. There is minimal presacral fluid. This was present on previous exam. A Hamm balloon is present within the bladder which is partially collapsed. There may be a small amount of hyperdense material within the bladder. No abdominal lymphadenopathy is present. A mildly enlarged left pelvic sidewall lymph node shown on image 355 of 476 measures 1 cm short axis diameter. This is either unchanged or slightly decreased in size since CT of February 20, 2018. A left external iliac lymph node shown on image 379 measures 1.3 cm in short axis diameter. This is unchanged. A mildly enlarged left common iliac lymph node measures 1 cm in short axis diameter. This is unchanged There is no evidence for a bowel obstruction. Severe osteoarthritis of the left hip is noted. There is a subtle 9 mm chronic focus within the left ischium. There is sclerosis and heterogeneity of the left iliac bone. IMPRESSION: 1. Mildly enlarged left pelvic sidewall and left common and external iliac lymph nodes. The left pelvic sidewall node is either unchanged or slightly decreased since CT of February 20, 2018. These are indeterminate but suspicious for metastatic disease. Reactive lymphadenopathy could appear similar although is considered less likely. Short-term imaging follow-up is recommended with a follow-up CT of the abdomen and pelvis in 3 months. 2. Asymmetric sclerosis and heterogeneity of the left iliac bone. The appearance raises the possibility of metastatic disease however Paget's disease is within the differential. This can be assessed on subsequent CT. 3. Indeterminate 9 mm sclerotic focus within the left ischium which may assessed on follow-up CT. Electronically signed by: Gaston Welch M.D. 03/22/2018 1:36 PM Dictated Date/Time: 03/22/2018 12:12 PM
== END | disposition home or self-care (01) ==
LOC: C.CTS 11:20
PROVIDERS: ATTEND Family Medicine
DX: C61 Malignant neoplasm of prostate (principal)

== ENCOUNTER 2018-12-10 18:32 | Inpatient (IN) ==
[2018-12-10] MEDS ORDERED: SODIUM CHLORIDE 0.9% 1000ML 2,000 ML IV ONE (18:40)
[2018-12-10] MEDS ORDERED: ADENOSINE IV SOLN 3 MG/ML 2 ML VIAL IV ONE (18:59)
[2018-12-10 19:34] LABS: Hematocrit (blood only) 35.1 % (42-52); Hemoglobin 12.2 g/dL (14.0-18.0); Mean Corpuscular Hgb Conc 34.8 g/dL (32-36); Mean Corpuscular Volume 77.7 fL (80-100); Mean Platelet Volume 11.1 fL (7.4-10.4); Platelet Count 466 K/uL (130-400); RDW Coefficient of Variation 15.7 % (11.5-14.5); RDW Standard Deviation 44.7 fL (36.4-46.3); Red Blood Count 4.52 M/uL (4.7-6.1); White Blood Count 20.39 K/uL (4.8-10.8)
--- NOTE | 2018-12-10 19:43 | XRay Report ---
XR chest 1V portable CLINICAL HISTORY: Sepsis dyspnea COMPARISON STUDY: 10/17/2017 FINDINGS: The bones soft tissues and hemidiaphragms are normal. The cardiomediastinal silhouette is n ormal. The lungs are clear. The pulmonary vasculature is normal. IMPRESSION: Negative chest. The above report was generated using voice recognition software. It may contain grammatical, syntax or spelling errors. Electronically signed by: Robel Altamirano M.D. 12/10/2018 7:41 PM
[2018-12-10 19:47] LABS: INR 1.1 (0.9-1.1); Partial Thromboplastin Ratio 0.8; Partial Thromboplastin Time 22.2 Seconds (21.0-31.0); Prothrombin Time 11.2 Seconds (9.0-12.0)
[2018-12-10 19:53] LABS: Basophils # (auto) 0.01 K/uL (0-0.2); Immature Granulocytes # (auto) 0.06 K/uL (0.00-0.02); Immature Granulocytes % (auto) 0.3 %; Lymphocytes # (auto) 2.59 K/uL (1.2-3.4); Lymphocytes % (auto) 12.7 %; Monocytes # (auto) 2.59 K/uL (0.11-0.59); Monocytes % (auto) 12.7 %; Neutrophils # (auto) 15.14 K/uL (1.4-6.5); Neutrophils % (auto) 74.3 %
[2018-12-10 19:57] LABS: BUN Creatinine Ratio 16.2 (10-20); Calcium 10.5 mg/dl (8.5-10.1); Est GFR (African American) 34.8; Est GFR (Non-African American) 30.1; Potassium 4.8 mmol/L (3.5-5.1)
[2018-12-10] MEDS ORDERED: CEFEPIME 1,000 MG in SYRINGE 0 ML IV STA (19:57)
[2018-12-10] MEDS ORDERED: ACETAMINOPHEN 500 MG TAB PO STA (19:57)
[2018-12-10 20:00] LABS: Albumin Globulin Ratio 0.5 (0.9-2); Bilirubin,Total 0.5 mg/dl (0.2-1); Globulin 6.4 gm/dl (2.5-4.0); Total Protein 9.4 gm/dl (6.4-8.2)
[2018-12-10] MEDS ORDERED: LACTATED RINGER'S 1,000 ML IV ONE (20:04)
--- NOTE | 2018-12-10 20:50 | CT Scan Report ---
CT abd pelvis wo con CT DOSE: 349.00 mGy.cm HISTORY: Sepsis sepsis TECHNIQUE: Multiaxial CT images of the abdomen and pelvis were performed without contrast. A dose lo wering technique was utilized adhering to the principles of ALARA. COMPARISON STUDY: 03/22/2018 FINDINGS: Lung bases are clear. Liver spleen and pancreas are unremarkable. Kidneys show several nonobstructing cortical calcifications. There is no evidence for hydronephrosis. Bowel pattern throughout the abdomen and pelvis is nonobstructive. There is a mild rectal fecal impac tion. Bladder is collapsed with a Hamm catheter within the central aspect of the bladder. Normal rachelle endix There is severe sclerotic and deterioration-type changes of the left hip. These are similar and are m inimally progressive compared to the prior exam. The small sclerotic focus of the left iliac wing is again noted. Adenopathy previously described is n onprogressive. IMPRESSION: 1. No acute process of the abdomen or pelvis. 2. Chronic and pre-existing changes as discussed above. 3. Stable changes of adenopathy and pelvic bone sclerosis also unchanged/stable. The above report was generated using voice recognition software. It may contain grammatical, syntax or spelling errors. Electronically signed by: Robel Altamirano M.D. 12/10/2018 8:49 PM
--- NOTE | 2018-12-10 21:07 | History & Physical Report ---
Date of Service December 10, 2018 Assessment & Plan (1) Sepsis: 73yoM with hx of Stage IV prostate adenocarcinoma (s/p hormone and radiation therapy comp 08/12/18) with indwelling cath for urinary retention, DM2, neuropathy, HTN, HLD, CKD3, thrombocytopenia, anemia, chronic L hip pain 2/2 severe OA, Hep A, hx of L heel osteomyelitis in 2018, and BPH presents with concern for worsening UTI symptoms from [facility]. Found to be septic likely 2/2 failed outpt UTI treatment. ED course: Concern for sepsis 2/2 UTI. Febrile to 37.9, tachypneic RR 28 on RA, tachycardic to 157 (initially EKG concerning for SVT but converted to sinus tach after 1L IVF). WBC was 20.3. POC lactate is pending. UCx on 11/29 grew Staph MRSA and enterococcus faecalis. Pt received 3L IVF, adenosine 6mg x 1, cefepime, and 1g tylenol. Due to poor IV access central line was also placed. Sepsis 2/2 likely UTI: hx of stage 4 prostate adenocarcinoma with chronic vega due to urinary retention -Febrile to 37.9, WBC 20.3 -UCx 11/29: Staph MRSA, enterococcus faecalis (susceptible to vanc) -UA today dirty but grossly positive -BCx 2 pending -Lactate POC pending -Abd/pelvis CT: no acute abnl, stable chronic changes -CXR negative -Received LR 1L and NS 2L in the ED -Continue IVFs at 125cc/hr -Received cefepime x 1 in the Ed -Started on Vanc and zosyn -Pain Control: Tylenol 1g TID Tachycardia: SVT vs. sinus tachycardia -Initial EKG 156 SVT QTc 538 -Received Adenosine 6mg IV x 1 -After receiving 1L IVFs converted to sinus tach -HR improving -Consider additional IVFs or adenosine as indicated HTN/HLD -Hold home hydralazine TID in the setting of being tachycardic and normotensive -Continue metoprolol 100mg BID DM2 with neuropathy -Diet controlled -SSI and BSG checks per unit protocol SONY in the setting of CKD3 -BUN/Cr 34/2.09 possibly somewhat hemoconcentrated; baseline Cr 1.3 -GFR 34 -Received 3L NS bolus -IVFs NS 125cc/hr -avoid nephrotoxins and renally dose medications Prostate Adenocarcinoma Stage 4 -Continue Lupron BPH -Continue Tamsulosin Anemia: hx of GI bleed in 02/2018 and likely component of chronic disease given CKD Hgb 12.2 (likely hemoconcentrated in the setting of dehydration), baseline around 9 -MCV 77 -No concern for bleeding at this time -Continue to monitor CBC Mild hypercalcemia -Ca 10.5 likely hemoconcentrated, given dehydration -Received 3L IVFs and on maintenance IVFs -Monitor BMP DVT prop: Lovenox 30mg daily Code: DNR/DNI Dispo: PCU telemetry (2) Prostate cancer: (3) Diabetes: (4) HTN (hypertension): (5) Anemia: (6) BPH (benign prostatic hyperplasia): (7) CKD (chronic kidney disease): History of Present Illness Chief Complaint: UTI Primary Care Provider: KATHERINE Tappahannockfroylan 73yoM with hx of Stage IV prostate adenocarcinoma (s/p hormone and radiation therapy comp 08/12/18) with indwelling cath for urinary retention, DM2, neuropathy, HTN, HLD, CKD3, thrombocytopenia, anemia, chronic L hip pain 2/2 severe OA, Hep A, hx of L heel osteomyelitis in 2017, and BPH presents with concern for worsening UTI symptoms from [facility]. Pt was being treated with Bactrim for UTI however was not doing well and appeared dehydrated due to decreased PO intake. Patient reports fever, chills, headache, decreased appetite, suprapubic abdominal pain, sob, chest pain and chronic L leg pain. Denies any dizziness, n/v, constipation. ED course: Concern for sepsis 2/2 UTI. pt was found to febrile to 37.9, tachypneic RR 28 sating well on RA, tachycardic to 157 (initially EKG concerning for SVT but converted to sinus tach after 1L IVF). WBC was 20.3. POC lactate is pending. UCx on 11/29 grew Staph MRSA and enterococcus faecalis. Pt received 3L IVF, adenosine 6mg x 1, cefepime, and 1g tylenol. Due to poor IV access central line was also placed. PMHx as above Social Hx: Does not currently smoke or drink Allergies Allergy/AdvReac Type Severity Reaction Status Date / Time No Known Allergies Allergy Verified 12/10/18 20:49 Home Medications Home Medications Medication Instructions Recorded Confirmed Type hydralazine 25 mg PO TID 04/22/18 12/10/18 History metoprolol succinate 100 mg PO Q12 04/22/18 12/10/18 History tamsulosin 0.4 mg capsule 0.4 mg PO BID 07/18/18 12/10/18 History acetaminophen [Tylenol Extra 1,000 mg PO TID PRN 12/10/18 12/10/18 History Strength] leuprolide (6 month) [Lupron Depot 45 mg IM Q6M 12/10/18 12/10/18 History (6 Month)] Past Med/Surg History Medical History Chronic left hip pain (Acute) Indwelling Vega catheter present (Acute) Prostate cancer (Acute) Urinary retention (Acute) Allergic rhinitis (Chronic) Diabetes mellitus (Chronic) Diabetic neuropathy (Chronic) Diverticulosis (Chronic) H/O type A viral hepatitis (Chronic) Hyperlipidemia (Chronic) Hypertension (Chronic) Iron deficiency anemia (Chronic) Liver disease (Chronic) Weight loss (Chronic) H/O osteomyelitis (Resolved) Family History Sister , Unknown age at ;Kidney failure;Cancer in "her leg" No problems noted. Father , unknown age of Prostate Cancer No problems noted. Mother , unknown age from fall & injuring head No problems noted. Son No problems noted. Sister No problems noted. Sister No problems noted. Social History Preferred Language: Spanish Communication Ability: Effective Visual Impairment: No Limitations Hearing Ability: Normal [employer] Equipment [employer] Required: No Beliefs That Will Affect Care: None Current Living Situation: Other Current Living Situation Comment: [facility]. Other Information That Helps Us Care for You: No Feels Safe at Home: Yes Safety Concerns: Feels Safe At This Time Smoking Status: Never smoker Tobacco Type: cigarettes Cigarettes Per Day: Less than 1/2 PPD when he smoked Second Hand Exposure: No Hx Alcohol Use: No Hx Substance Use: No during the past year weight has: increased > 10 lbs Review of Systems Review of Systems: As per HPI Physical Exam Physical Exam: General: Appears fatigued but in NAD CV: tachycardic with regular rhythm, no m/r/g PULM: CTAB equal breath sounds bilaterally ABDOMEN: +BS, tympanic and somewhat distended, TTP over suprapubic region LE: no calf TTP, no LE edema Results & Data Vital Signs (Past 12 Hours) Vital Signs Temp Pulse Resp BP Pulse Ox 12/10/18 18:52 95 12/10/18 18:30 37.9 C H 157 H 28 H 131/75 95 Laboratory Results Abnormal lab results 12/10/18 12/10/18 Range/Units 18:52 18:52 WBC 20.39 H (4.8-10.8) K/uL RBC 4.52 L (4.7-6.1) M/uL Hgb 12.2 L (14.0-18.0) g/dL Hct 35.1 L (42-52) % MCV 77.7 L (80-100) fL RDW Coeff of Meaghan 15.7 H (11.5-14.5) % Plt Count 466 H (130-400) K/uL MPV 11.1 H (7.4-10.4) fL Immature Gran # (Auto) 0.06 H (0.00-0.02) K/uL Neut # (Auto) 15.14 H (1.4-6.5) K/uL Crenshaw # (Auto) 2.59 H (0.11-0.59) K/uL Chloride 108 H (98-107) mmol/L BUN 34 H (7-18) mg/dl Creatinine 2.09 H (0.6-1.4) mg/dl Glucose 120 H (70-99) mg/dl Calcium 10.5 H (8.5-10.1) mg/dl Alkaline Phosphatase 133 H (45-117) U/L Total Protein 9.4 H (6.4-8.2) gm/dl Albumin 3.0 L (3.4-5.0) gm/dl Globulin 6.4 H (2.5-4.0) gm/dl Albumin/Globulin Ratio 0.5 L (0.9-2) Diagnostic Findings CT abd pelvis wo con CT DOSE: 349.00 mGy.cm HISTORY: Sepsis sepsis TECHNIQUE: Multiaxial CT images of the abdomen and pelvis were performed without contrast. A dose lowering technique was utilized adhering to the principles of ALARA. COMPARISON STUDY: 03/22/2018 FINDINGS: Lung bases are clear. Liver spleen and pancreas are unremarkable. Kidneys show several nonobstructing cortical calcifications. There is no evidence for hydronephrosis. Bowel pattern throughout the abdomen and pelvis is nonobstructive. There is a mild rectal fecal impaction. Bladder is collapsed with a Vega catheter within the central aspect of the bladder. Normal appendix There is severe sclerotic and deterioration-type changes of the left hip. These are similar and are minimally progressive compared to the prior exam. The small sclerotic focus of the left iliac wing is again noted. Adenopathy previously described is nonprogressive. IMPRESSION: 1. No acute process of the abdomen or pelvis. 2. Chronic and pre-existing changes as discussed above. 3. Stable changes of adenopathy and pelvic bone sclerosis also unchanged/stable. XR chest 1V portable CLINICAL HISTORY: cvc tube position COMPARISON STUDY: 12/10/2018 7:36 PM FINDINGS: Left internal jugular catheter placed in the superior vena cava. No evidence pneumothorax. IMPRESSION: Central catheter placed in the superior vena cava. No evidence for pneumothorax. XR chest 1V portable CLINICAL HISTORY: Sepsis dyspnea COMPARISON STUDY: 10/17/2017 FINDINGS: The bones soft tissues and hemidiaphragms are normal. The cardiomediastinal silhouette is normal. The lungs are clear. The pulmonary vasculature is normal. IMPRESSION: Negative chest. Code Status & VTE Plan Code Status DNR/DNI VTE Prophylaxis Plan VTE Prophylaxis will be ordered: Yes Supervising Physician Co-Signing Physician Notes Pt seen/examined in conjunction with resident MD Dimitrios Morrell. Orders and plan of admission formulated with resident. 73 y/o M Hx Stage IV prostate CA, BPH - Vega for urinary retention - recurrent UTIs, DMII, neuropathy, HTN, HLD, CKD3, thrombocytopenia, anemia, L heel osteomyelitis in 2018. Resides at [facility] - recently treated for a UTI with Bactrim which has not been effective. Prior cultures have grown E. Faecalis and MRSA. He has become septic over the past 1-2 days. Also reports a poor appetite and exhibits dehydration. HR was 150 on arrival - appeared to be sinus and improved somewhat with IVF. OE Pleasant, elderly M - AAO x 3 - no distress S1,2 tachy, R Gynecomastia present CTAB NT, ND No CCE P: Based on prior cultures - he is placed on Vanc and Zosyn SS for DM Cont Hydralazine and Metoprolol as tolerated Resident Activity Tracking Resident Involvement: Resident Care Provided Care Provided: Adult Hospital Medicine (1) Sepsis Sepsis type: sepsis due to unspecified organism Qualified Code(s): A41.9 - Sepsis, unspecified organism
[2018-12-10] MEDS ORDERED: ADENOSINE IV SOLN 3 MG/ML 2 ML VIAL IV STA (21:25)
--- NOTE | 2018-12-10 21:39 | XRay Report ---
XR chest 1V portable CLINICAL HISTORY: cvc tube position COMPARISON STUDY: 12/10/2018 7:36 PM FINDINGS: Left internal jugular catheter placed in the superior vena cava. No evidence pneumothorax. IMPRESSION: Central catheter placed in the superior vena cava. No evidence for pneumothorax. The above report was generated using voice recognition software. It may contain grammatical, syntax or spelling errors. Electronically signed by: Robel Altamirano M.D. 12/10/2018 9:38 PM
[2018-12-10 22:26] LABS: Appearance Urine Clear (Clear); Bacteria Urine Automated Negative (Negative); Bilirubin Urine Negative (Negative); Blood Urine 2+ (Negative); Color Urine Yellow; Epithelial Cell Urine Auto >30 /lpf (0-5); Glucose Urine UA Negative (Negative); Ketones Urine Negative (Negative); Leukocyte Esterase Urine 2+ (Negative); Nitrite Urine Negative (Negative); RBC Urine Automated >30 /hpf (0-4); Specific Gravity Urine 1.016 (1.000-1.030); Urobilinogen Urine Negative (Negative); pH Urine 7.5 (4.5-7.5)
[2018-12-10 22:35] LABS: Protein Urine 1+ (Negative)
--- NOTE | 2018-12-10 22:36 | Emergency Department Note ---
Entered by Tylor Nelson acting as a scribe for Maximo Valdes DO History of Present Illness General Chief complaint: Illness Stated complaint: gen. illness/ sci [facility] Time Seen by Provider: 12/10/18 18:33 Source: patient History of Present Illness Onset (ago): day(s) 6 Location: head (generalized) Pain Consistency: + other (persistent) Quality: + other (weakness) Associated symptoms: + cough, + fever/chills and + other (UTI for past three days, sore throat); no nausea/vomiting Treatments prior to arrival: other (antibiotics) The patient is a 73 year old male who presents to the Emergency Room with complaints of persistent generalized weakness over the past 6 days. EMS reports that the patient has had a UTI for the past three days and is being treated with antibiotics, Bactrim and Vancomycin per medical records. They report a fever of 102.7, blood sugar of 128, and state that the patient was complaining of some penile pain. Nursing Home staff reports that the patient has been unable to get out of bed due to weakness, and they believe his last bowel movement was a few days ago. The patient states that he has had a Hamm catheter for the past 2.5 years. He notes a cough, runny nose, and sore throat in the mornings that improves throughout the day. He denies abdominal pain, nausea, vomiting, or open wounds/sores. Patient has no complaints at this time. Home Medications Home Medications Medication Instructions Recorded Confirmed Type hydralazine 25 mg PO TID 04/22/18 12/10/18 History metoprolol succinate 100 mg PO Q12 04/22/18 12/10/18 History tamsulosin 0.4 mg capsule 0.4 mg PO BID 07/18/18 12/10/18 History acetaminophen [Tylenol Extra 1,000 mg PO TID PRN 12/10/18 12/10/18 History Strength] leuprolide (6 month) [Lupron Depot 45 mg IM Q6M 12/10/18 12/10/18 History (6 Month)] Allergies Allergy/AdvReac Type Severity Reaction Status Date / Time No Known Allergies Allergy Verified 12/10/18 20:49 Past Med/Surg History Medical History Chronic left hip pain (Acute) Indwelling Hamm catheter present (Acute) Prostate cancer (Acute) Urinary retention (Acute) Allergic rhinitis (Chronic) Diabetes mellitus (Chronic) Diabetic neuropathy (Chronic) Diverticulosis (Chronic) H/O type A viral hepatitis (Chronic) Hyperlipidemia (Chronic) Hypertension (Chronic) Iron deficiency anemia (Chronic) Liver disease (Chronic) Weight loss (Chronic) H/O osteomyelitis (Resolved) Family History Sister , Unknown age at ;Kidney failure;Cancer in "her leg" No problems noted. Father , unknown age of Prostate Cancer No problems noted. Mother , unknown age from fall & injuring head No problems noted. Son No problems noted. Sister No problems noted. Sister No problems noted. Social History Preferred Language: Spanish Communication Ability: Effective Visual Impairment: No Limitations Hearing Ability: Normal Beliefs That Will Affect Care: None Feels Safe at Home: Yes Smoking Status: Never smoker Tobacco Type: cigarettes Cigarettes Per Day: Less than 1/2 PPD when he smoked Second Hand Exposure: No Hx Alcohol Use: No (Quit 25yrs ago;Beer daily prior to that) Hx Substance Use: No during the past year weight has: increased > 10 lbs Review of Systems See HPI for pertinent positives & negatives. and A total of 10 systems reviewed and were otherwise negative Physical Exam Vital Signs Vital Signs - 24 hr 12/10/18 18:30 12/10/18 18:52 12/10/18 19:30 Temperature 37.9 C H Temperature Source Oral Sepsis Recent Fever Within 48 Hours Yes Sepsis New/Unexplained Change in Mental Status No Sepsis Action Taken by Nursing Physician Notified Pulse Rate 157 H Pulse Rate [Left Finger] 142 H Respiratory Rate 28 H 24 Respiratory Effort / Characteristics Non-Labored Non-Labored Respiratory Depth Normal Normal Respiratory Pattern Regular Regular Blood Pressure 131/75 Blood Pressure [Right Arm] 157/93 H Blood Pressure Mean 93 Blood Pressure Mean [Right Arm] 114 Pulse Oximetry 95 95 93 Oxygen Delivery Method Room Air Room Air Room Air 12/10/18 20:00 12/10/18 21:00 12/10/18 21:48 Temperature 37.4 C Temperature Source Oral Sepsis Recent Fever Within 48 Hours Sepsis New/Unexplained Change in Mental Status Sepsis Action Taken by Nursing Pulse Rate Pulse Rate [Left Finger] 141 H 145 H 138 H Respiratory Rate 22 28 H 22 Respiratory Effort / Characteristics Non-Labored Non-Labored Non-Labored Respiratory Depth Normal Normal Normal Respiratory Pattern Regular Regular Regular Blood Pressure Blood Pressure [Right Arm] 156/83 H 127/97 134/81 Blood Pressure Mean Blood Pressure Mean [Right Arm] 107 107 98 Pulse Oximetry 93 96 98 Oxygen Delivery Method Room Air Room Air Room Air 12/10/18 22:00 Temperature Temperature Source Sepsis Recent Fever Within 48 Hours Sepsis New/Unexplained Change in Mental Status Sepsis Action Taken by Nursing Pulse Rate Pulse Rate [Left Finger] 130 H Respiratory Rate 23 Respiratory Effort / Characteristics Non-Labored Respiratory Depth Normal Respiratory Pattern Regular Blood Pressure Blood Pressure [Right Arm] 140/81 Blood Pressure Mean Blood Pressure Mean [Right Arm] 100 Pulse Oximetry 99 Oxygen Delivery Method Room Air GENERAL: lying in bed, ill-appearing, malnourished, disheveled, hands shackled EYE EXAM: normal conjunctiva OROPHARYNX: no exudate, no erythema, lips, buccal mucosa, and tongue normal and mucous membranes are dry NECK: supple, no nuchal rigidity, no adenopathy, non-tender LUNGS: Coarse breath sounds in the bilateral bases. Normal chest wall mechanics HEART: tachycardia, no murmurs, S1 normal and S2 normal ABDOMEN: abdomen soft, non-tender, normo-active bowel sounds, no masses, no rebound or guarding. BACK: Back is symmetrical on inspection and there is no deformity, no midline tenderness, no CVA tenderness. GENITOURINARY: Hamm catheter in place with yellow/clear urine in the bag. SKIN: no rashes and no bruising UPPER EXTREMITIES: upper extremities are grossly normal. LOWER EXTREMITIES: No pitting edema. NEURO EXAM: Normal sensorium, cranial nerves II-XII grossly intact, normal spee ch, no gross weakness of arms, no gross weakness of legs. Gross sensation intact. Procedures Central Line Placement Left IJ: Time Out Performed: Yes Patient Placed on Monitor/Pulse Ox: Yes MD Prep: mask, gown and gloves Central Line Prep: Povidone-Iodine 1% Local Anesthetic: lidocaine 1% Amount of anesthesia used (mL): 3 Ultrasound Used for Placement: Yes Central Line Lumen Inserted: triple Post Procedure: sutured in place Post Procedure X-Ray: tip of catheter in good position and no pneumothorax seen Patient Tolerated Procedure: well Complications: none Course ED COURSE: Vital signs were reviewed and showed that the patient is tachycardic and febrile The patients medical record was reviewed The above diagnostic studies were performed and reviewed. ED treatments and interventions as stated above. 1833: The patient was evaluated in room A9B. A complete history and physical examination was performed. 2042: Central line placement was performed. See procedure note for further detail. 2139: The patient broke into sinus tachycardia after administration of 6 mg adenosine, but he then reverted back to SVT. He will be hydrated with fluids and given Tylenol. 2141: Dr. Nicole [facility] Hospitalist was notified of the patient. The patient will be reevaluated for hospitalization. Based on the patients age, coexisting illnesses, exam and lab findings the dec ision to treat as an inpatient was made. The patient remained stable while under my care. The patient will be evaluated for further management. Administered Medications Discontinued Medications Acetaminophen (Tylenol) 1,000 mg PO NOW STA Stop: 12/10/18 19:58 Last Admin: 12/10/18 20:40 Dose: 1,000 mg Documented by: [id number] Adenosine (Adenosine) Confirm Administered Dose 6 mg IV .STK-MED ONE Stop: 12/10/18 19:00 Last Admin: 12/10/18 21:36 Dose: 6 mg Documented by: [id number] Sodium Chloride (Nss 1000ml) 2,000 mls @ 999 mls/hr IV .Q2H1M ONE Stop: 12/10/18 20:40 Last Infusion: 12/10/18 21:26 Dose: 0 mls/hr Documented by: [id number] Admin: 12/10/18 19:24 Dose: 999 mls/hr Documented by: [id number] Cefepime HCl 1,000 mg/ Syringe 11.3 mls @ 5.5 mls/min IV NOW STA Stop: 12/10/18 19:59 Last Admin: 12/10/18 20:43 Dose: 5.5 mls/min Documented by: [id number] Lactated Ringer's (Lr) 1,000 mls @ 999 mls/hr IV .Q1H1M ONE Stop: 12/10/18 21:04 Last Admin: 12/10/18 21:47 Dose: 999 mls/hr Documented by: [id number] Medical Decision Making Differential Diagnosis Differential diagnosis includes etiologies such as sepsis, UTI, pneumonia, metabolic, electrolyte abnormalities, cardiac sources, intracerebral event, toxicologic, neurologic, as well as others were entertained. Medical Records Attestation: I reviewed the patient's medical records. Home Medications Current Medication List: was personally reviewed by me Laboratory Data Attestation: I reviewed the patient's lab results. Result diagrams: 12/10/18 18:52 12/10/18 18:52 Lab Results 12/10/18 12/10/18 12/10/18 Range/Units 18:52 18:52 18:52 WBC 20.39 H (4.8-10.8) K/uL RBC 4.52 L (4.7-6.1) M/uL Hgb 12.2 L (14.0-18.0) g/dL Hct 35.1 L (42-52) % MCV 77.7 L (80-100) fL MCH 27.0 (25-34) pg MCHC 34.8 (32-36) g/dL RDW Std Deviation 44.7 (36.4-46.3) fL RDW Coeff of Meaghan 15.7 H (11.5-14.5) % Plt Count 466 H (130-400) K/uL MPV 11.1 H (7.4-10.4) fL Immature Gran % (Auto) 0.3 % Neut % (Auto) 74.3 % Lymph % (Auto) 12.7 % Laurel % (Auto) 12.7 % Eos % (Auto) 0.0 % Baso % (Auto) 0.0 % Immature Gran # (Auto) 0.06 H (0.00-0.02) K/uL Neut # (Auto) 15.14 H (1.4-6.5) K/uL Lymph # (Auto) 2.59 (1.2-3.4) K/uL Laurel # (Auto) 2.59 H (0.11-0.59) K/uL Eos # (Auto) 0.00 (0-0.5) K/uL Baso # (Auto) 0.01 (0-0.2) K/uL PT 11.2 (9.0-12.0) Seconds INR 1.1 (0.9-1.1) APTT 22.2 (21.0-31.0) Seconds PTT Ratio 0.8 Sodium 141 (136-145) mmol/L Potassium 4.8 (3.5-5.1) mmol/L Chloride 108 H (98-107) mmol/L Carbon Dioxide 25 (21-32) mmol/L Anion Gap 8.0 (3-11) BUN 34 H (7-18) mg/dl Creatinine 2.09 H (0.6-1.4) mg/dl Est Cr Clr Drug Dosing 28.0 ml/min Est GFR ( Amer) 34.8 Est GFR (Non-Af Amer) 30.1 BUN/Creatinine Ratio 16.2 (10-20) Glucose 120 H (70-99) mg/dl Calcium 10.5 H (8.5-10.1) mg/dl Total Bilirubin 0.5 (0.2-1) mg/dl AST 34 (15-37) U/L ALT 48 (12-78) U/L Alkaline Phosphatase 133 H (45-117) U/L Total Protein 9.4 H (6.4-8.2) gm/dl Albumin 3.0 L (3.4-5.0) gm/dl Globulin 6.4 H (2.5-4.0) gm/dl Albumin/Globulin Ratio 0.5 L (0.9-2) Imaging Data Radiologist's Impression: Radiology results as stated below per my review and the radiologist's interpretation: XR chest 1V portable CLINICAL HISTORY: Sepsis dyspnea COMPARISON STUDY: 10/17/2017 FINDINGS: The bones soft tissues and hemidiaphragms are normal. The cardiomediastinal silhouette is normal. The lungs are clear. The pulmonary vasculature is normal. IMPRESSION: Negative chest. The above report was generated using voice recognition software. It may contain grammatical, syntax or spelling errors. Electronically signed by: Robel Altamirano M.D. 12/10/2018 7:41 PM XR chest 1V portable CLINICAL HISTORY: cvc tube position COMPARISON STUDY: 12/10/2018 7:36 PM FINDINGS: Left internal jugular catheter placed in the superior vena cava. No evidence pneumothorax. IMPRESSION: Central catheter placed in the superior vena cava. No evidence for pneumothorax. The above report was generated using voice recognition software. It may contain grammatical, syntax or spelling errors. Electronically signed by: Robel Altamirano M.D. 12/10/2018 9:[address] abd pelvis wo con CT DOSE: 349.00 mGy.cm HISTORY: Sepsis sepsis TECHNIQUE: Multiaxial CT images of the abdomen and pelvis were performed without contrast. A dose lowering technique was utilized adhering to the principles of ALARA. COMPARISON STUDY: 03/22/2018 FINDINGS: Lung bases are clear. Liver spleen and pancreas are unremarkable. Kidneys show several nonobstructing cortical calcifications. There is no evidence for hydronephrosis. Bowel pattern throughout the abdomen and pelvis is nonobstructive. There is a mild rectal fecal impaction. Bladder is collapsed with a Hamm catheter within the central aspect of the bladder. Normal appendix There is severe sclerotic and deterioration-type changes of the left hip. These are similar and are minimally progressive compared to the prior exam. The small sclerotic focus of the left iliac wing is again noted. Adenopathy previously described is nonprogressive. IMPRESSION: 1. No acute process of the abdomen or pelvis. 2. Chronic and pre-existing changes as discussed above. 3. Stable changes of adenopathy and pelvic bone sclerosis also unchanged/stable. The above report was generated using voice recognition software. It may contain grammatical, syntax or spelling errors. Electronically signed by: Robel Altamirano M.D. 12/10/2018 8:49 PM ECG Data Attestation: I personally reviewed and interpreted this ECG as follows: Indication: tachycardia Rate (beats per minute): 156 Rhythm: SVT Findings: + other (normal axis); no PVC Additional Comments: Repeat EKG shows SVT at 141 bpm with a normal axis and no PVCs. The second repeat EKG post-administration of adenosine shows sinus tachycardia at 137 bpm with a normal axis. There are ST depressions in the lateral leads. No PVCs. Blood Pressure Blood Pressure Findings: Elevated blood pressure Blood Pressure Disposition: further management by hospitalist KATALINA Narrative Patient is a 73-year-old male that presents the ER via detention for fever and tachycardia. Upon presentation was found to have a heart rate of 156. Temperature was 38 C. Respiratory rate was in the low 30s. 3 IVs were init ially established and eventually all failed. Labs were obtained showed a leukocytosis of 20.4 thousand. No significant anemia. INR was unremarkable. BMP with acute kidney injury and a creatinine of 2 up from 1. No significant transaminitis. Bilirubin was unremarkable. Chest x-ray is unremarkable. CT abdomen pelvis shows no acute pathology. EKG x2 showed SVT. Patient only got a liter of fluids and cefepime following the IVs deteriorating. Central line was placed by myself in the left IJ and visualized under ultrasound guidance. Patient was given adenosine with heart rate breaking from a short period time and then returned back up at the 140s. Following this patient was given mak tional fluids. Heart rate trended down to the 130s. Repeat EKG showed what appeared to be sinus tachycardia. Patient was given a total of 3 L IV; two of which were normal saline, 1 which was lactated Ringer's. Case was discussed with hospitalist and patient was admitted for further work-up of his sepsis. Heart rate was trending down into the low 130s/high 120s the patient was improving upon admission. Lactate was not drawn initially as IV team and nursing staff had an extremely difficult time obtaining blood work. Impression & Plan Sepsis, Fever, SONY (acute kidney injury) Critical Care Time I have personally spent 75 minutes of critical care time in the direct management of this patient. This includes bedside care, interpretation of diagnostic studies, and testing, discussion with consultants, patient, and family members, and other required patient management activities. This 75 minutes is in excess of all separately billable procedures. Critical Care Time: Yes Total Critical Care Time: 75 Discharge Plan Visit Data Chief Complaint: Illness Stated Complaint: gen. illness/ sci [facility] ED Provider: Maximo Valdes Discharge Problem: Sepsis, Fever, SONY (acute kidney injury) Patient Disposition: Being Evaluated by Hospitalist Forms Stand Alone Forms: [facility] [place] Prescriptions Prescriptions: No Action metoprolol succinate 100 mg Tablet Extended Release 24 Hr 100 mg PO Q12 RF: 0 hydralazine 25 mg Tablet 25 mg PO TID RF: 0 tamsulosin [Flomax] 0.4 mg capsule 0.4 mg PO BID RF: 0 acetaminophen [Tylenol Extra Strength] 500 mg Tablet 1,000 mg PO TID PRN (Reason: Pain) RF: 0 Lupron Depot (6 Month) 45 mg Syringe Kit 45 mg IM Q6M RF: 0 Referrals Referrals: Jamarcus MURPHY [Primary Care Provider] - Discharge Problem: Sepsis Qualifiers: Sepsis type: sepsis due to unspecified organism Qualified Code(s): A41.9 - Sepsis, unspecified organism Fever Qualifiers: Fever type: unspecified Qualified Code(s): R50.9 - Fever, unspecified The scribe's documentation has been prepared under my direction and personally reviewed by me in its entirety. I confirm that the note above accurately reflects all work, treatment, procedures, and medical decision making performed by me.
[2018-12-10 22:37] LABS: Renal Epithelial Cells Urine 0-5 /lpf (0-5)
[2018-12-10] MEDS ORDERED: VANCOMYCIN CONSULT ACTIVE PRN (23:41)
[2018-12-10] MEDS ORDERED: PIPERACILL/TAZOBAC CONSULT ACTIVE PRN (23:41)
[2018-12-10] MEDS ORDERED: POLYETHYLENE (MIRALAX) 17 GM PACK PO PRN (23:41)
[2018-12-10] MEDS ORDERED: ALUMINUM/MAGNESIUM SUSP 30 ML UDC PO PRN (23:41)
[2018-12-11] MEDS ORDERED: VANCOMYCIN HCL 1,500 MG in SODIUM CHLORIDE 0.9% 500 ML IV STA (00:10)
[2018-12-11] MEDS ORDERED: NORMOSOL-R 1,000 ML IV ONE (00:20)
[2018-12-11] MEDS ORDERED: METOPROLOL SUCC 50MG EXT REL TAB PO STA (00:29)
[2018-12-11] MEDS: SODIUM CHLORIDE 0.9% 1000ML 1,000 ML IV SCH ×3 (00:58→16:18)
[2018-12-11] MEDS: TAMSULOSIN HCL 0.4 MG CAP PO SCH ×3 (00:59→20:19)
[2018-12-11] MEDS: PIPERACILLIN/TAZOBACTAM 3.375 GM in DEXTROSE 5% 100 ML IV SCH ×3 (02:34→17:36)
[2018-12-11] MEDS ORDERED: CARBOHYDRATES FOR HYPOGLYCEMIA PO PRN (04:30)
[2018-12-11] MEDS ORDERED: DEXTROSE 50% 50 ML SYRINGE IV PRN (04:30)
[2018-12-11] MEDS ORDERED: GLUCAGON FOR INJ 1 MG VIAL IM PRN (04:30)
[2018-12-11] MEDS ORDERED: GLUCOSE 10 TABS/TUBE PO PRN (04:30)
[2018-12-11] MEDS ORDERED: GLUCOSE 40% GEL 15 GM TUBE PO PRN (04:30)
[2018-12-11 06:11] LABS: Basophils # (auto) 0.02 K/uL (0-0.2); Basophils % (auto) 0.1 %; Eosinophils # (auto) 0.01 K/uL (0-0.5); Eosinophils % (auto) 0.1 %; Hematocrit (blood only) 25.7 % (42-52); Hemoglobin 8.6 g/dL (14.0-18.0); Immature Granulocytes # (auto) 0.05 K/uL (0.00-0.02); Immature Granulocytes % (auto) 0.3 %; Lymphocytes # (auto) 1.61 K/uL (1.2-3.4); Lymphocytes % (auto) 9.6 %; Mean Corpuscular Hgb Conc 33.5 g/dL (32-36); Mean Corpuscular Volume 77.2 fL (80-100); Mean Platelet Volume 9.4 fL (7.4-10.4); Monocytes # (auto) 2.31 K/uL (0.11-0.59); Monocytes % (auto) 13.8 %; Neutrophils # (auto) 12.78 K/uL (1.4-6.5); Neutrophils % (auto) 76.1 %; Platelet Count 324 K/uL (130-400); RDW Coefficient of Variation 15.7 % (11.5-14.5); RDW Standard Deviation 44.6 fL (36.4-46.3); Red Blood Count 3.33 M/uL (4.7-6.1); White Blood Count 16.78 K/uL (4.8-10.8)
[2018-12-11 06:41] LABS: Albumin Globulin Ratio 0.4 (0.9-2); Albumin Level 2.1 gm/dl (3.4-5.0); BUN Creatinine Ratio 17.7 (10-20); Bilirubin,Total 0.6 mg/dl (0.2-1); Calcium 8.8 mg/dl (8.5-10.1); Creatinine Clr Calc Pharmacy 43.8 ml/min; Est GFR (African American) 60.2; Est GFR (Non-African American) 51.9; Globulin 4.9 gm/dl (2.5-4.0); Potassium 3.7 mmol/L (3.5-5.1)
[2018-12-11] MEDS: ENOXAPARIN INJ 30 MG/0.3 ML SYR SQ SCH (07:44)
[2018-12-11] MEDS: METOPROLOL SUCC 50MG EXT REL TAB PO SCH ×2 (07:45→20:19)
[2018-12-11] MEDS: INSULIN ASPART 100 UNITS/ML 3 ML PEN SC SCH ×4 (07:45→20:23)
--- NOTE | 2018-12-11 16:18 | Pharmacy Report ---
Pharmacy Abx Initial Consult - Date of Service December 11, 2018 - Pharmacy Dosing Scope Date of Consult: 12/11/18 Consultation requested by: Dr. Morrell Pharmacy is consulted to initiate Vancomycin IV dosing therapy, order appropriate labs and adjust drug dose/frequency. - Subjective The patient is a 73 year old M admitted on 12/10/18 22:05. - Objective Height: 5 ft 9 in Weight: 64.5 kg Vital Signs (Past 12hrs): Vital Signs Temp Pulse Pulse Resp BP Pulse Ox Pulse Ox 12/11/18 15:44 38.1 C H 108 H 22 128/82 98 12/11/18 11:05 37.5 C 111 H 23 133/78 96 12/11/18 08:41 97 12/11/18 08:00 117 H 12/11/18 07:28 36.8 C 121 H 19 129/81 97 Lab Results (24hrs): Laboratory Tests (24 Hours) 12/11/18 12/11/18 12/10/18 05:54 05:54 18:52 WBC 16.78 H Neut # (Auto) 12.78 H Creatinine 1.33 D 2.09 H Est Cr Clr Drug Dosing 43.8 28.0 12/10/18 18:52 WBC 20.39 H Neut # (Auto) 15.14 H Creatinine Est Cr Clr Drug Dosing Micro Results: 12/10/18 19:10 Blood Culture - Pending Blood 12/10/18 18:52 Blood Culture - Pending Blood - Risk Factors for Resistance * Resident in a nursing home. * History of infection with a multidrug-resistant organism: MRSA * Antimicrobial use within the last 90 days - Bactrim - Assessment & Plan Assessment 73 year old M admitted for Sepsis, UTI. Patient has history of stage 4 Prostate cancer - completed chemo in 07/2018 and history of MRSA. Plan Vancomycin + Zosyn for treatment of Sepsis d/t UTI. Vancomycin IV * Estimated PK Parameters: Vd 0.7 L/kg, Jimbo 0.028 hr-1, t1/2 24.8 hr * Loading dose: 1500 mg (23 mg/kg) * Maintenance dose: 1000 mg IV (15.4 mg/kg) every 24 hours * Goal trough level for Urosepsis: 15 to 20 mcg/mL * Trough level ordered for 12/14/18 before dose at 2200 (after 3 maintenance doses). Pharmacy will continue to follow and will adjust dose/frequency as necessary. Thank you.
--- NOTE | 2018-12-11 21:30 | Hospitalist Progress Note ---
Date of Service December 11, 2018 Assessment & Plan (1) Sepsis: Sepsis 2/2 likely UTI: hx of stage 4 prostate adenocarcinoma with chronic vega due to urinary retention -Febrile to 37.9, WBC 20.3 on admisiion. Patient today WBC has improved but remains elevated. -UCx 11/29: Staph MRSA, enterococcus faecalis (susceptible to vanc) -UA today dirty but grossly positive -BCx 2 pending -Lactate normal -Abd/pelvis CT: no acute abnl, stable chronic changes -CXR negative -Received LR 1L and NS 2L in the ED -Continue IVFs at 125cc/hr. Patient remains tachycardic -Received cefepime x 1 in the Ed -Started on Vanc and zosyn; will continue today -Pain Control: Tylenol 1g TID Tachycardia: SVT vs. sinus tachycardia -Initial EKG 156 SVT QTc 538 -Received Adenosine 6mg IV x 1 -After receiving 1L IVFs converted to sinus tach -HR improving; however remains tachycardic HTN/HLD -Hold home hydralazine TID in the setting of being tachycardic and normotensive -Continue metoprolol 100mg BID DM2 with neuropathy -Diet controlled -SSI and BSG checks per unit protocol SONY in the setting of CKD3 -BUN/Cr 34/2.09 possibly somewhat hemoconcentrated; baseline Cr 1.3 -GFR 34 -Received 3L NS bolus -IVFs NS 125cc/hr -avoid nephrotoxins and renally dose medications Prostate Adenocarcinoma Stage 4 -Continue Lupron BPH -Continue Tamsulosin Anemia: hx of GI bleed in 02/2018 and likely component of chronic disease given CKD Hgb 12.2 (likely hemoconcentrated in the setting of dehydration), baseline around 9 -MCV 77 -No concern for bleeding at this time -Continue to monitor CBC Mild hypercalcemia -Ca 10.5 likely hemoconcentrated, given dehydration on admission. Improved on 12/11 -Received 3L IVFs and on maintenance IVFs -Monitor BMP DVT prop: Lovenox 30mg daily Code: DNR/DNI Dispo: PCU telemetry Spent 35 minutes in management of patient. Included chart review of previous admissions. (2) Prostate cancer: (3) Diabetes: (4) HTN (hypertension): (5) Anemia: (6) BPH (benign prostatic hyperplasia): (7) CKD (chronic kidney disease): Subjective 73 yo male reports feeling better than when he came. He does not report any specific symptoms, just that he is currently run down. He no longer has abdominal pain, nor SOB. He still has subjective fever and chills. Review of Systems Review of Systems: All systems reviewed & are unremarkable except as noted in HPI & below Physical Exam Constitutional: WD/WN, vitals as above + frail appearing; no acute distress Eyes: PERRL, conjunctivae normal, anicteric sclerae ENMT: external ear and nose normal, oropharynx normal Neck: trachea midline, no thyromegaly Respiratory: normal respiratory effort, lungs clear to auscultation Cardiovascular: Rate/Rhythm: regular rhythm and + tachycardic Heart Sounds: normal S1 and normal S2 Gastrointestinal (Abdomen): normal bowel sounds, soft, nontender, no hep atosplenomegaly Skin: no rashes, warm and dry Neurologic: PERRL, EOMI, accommodation nl, no face palsy, no dysarthria Psychiatric: A+Ox3, euthymic affect Results & Data Vital Signs (Past 12 Hours) Vital Signs Temp Pulse Pulse Resp BP Pulse Ox 12/11/18 20:02 37.8 C H 108 H 26 H 122/67 96 12/11/18 16:00 106 H 12/11/18 15:44 38.1 C H 108 H 22 128/82 98 12/11/18 11:05 37.5 C 111 H 23 133/78 96 (1) Sepsis Sepsis type: sepsis due to unspecified organism Qualified Code(s): A41.9 - Sepsis, unspecified organism
[2018-12-11] MEDS ORDERED: VANCOMYCIN HCL 1,000 MG in SODIUM CHLORIDE 0.9% 250 ML IV SCH (22:00)
[2018-12-12] MEDS: SODIUM CHLORIDE 0.9% 1000ML 1,000 ML IV SCH ×2 (01:13→07:41)
[2018-12-12] MEDS: PIPERACILLIN/TAZOBACTAM 3.375 GM in DEXTROSE 5% 100 ML IV SCH ×3 (02:18→17:39)
[2018-12-12] MEDS: ENOXAPARIN INJ 30 MG/0.3 ML SYR SQ SCH (07:41)
[2018-12-12] MEDS: TAMSULOSIN HCL 0.4 MG CAP PO SCH ×2 (07:42→20:11)
[2018-12-12] MEDS: METOPROLOL SUCC 50MG EXT REL TAB PO SCH ×2 (07:42→20:11)
[2018-12-12] MEDS: INSULIN ASPART 100 UNITS/ML 3 ML PEN SC SCH ×4 (07:43→21:33)
[2018-12-12 10:58] LABS: Creatinine Clr Calc Pharmacy 51.1 ml/min; Est GFR (African American) 71.7; Est GFR (Non-African American) 61.9
[2018-12-12 14:14] LABS: Basophils # (auto) 0.01 K/uL (0-0.2); Basophils % (auto) 0.1 %; Eosinophils % (auto) 0.8 %; Hematocrit (blood only) 25.3 % (42-52); Hemoglobin 8.2 g/dL (14.0-18.0); Immature Granulocytes # (auto) 0.04 K/uL (0.00-0.02); Immature Granulocytes % (auto) 0.3 %; Lymphocytes # (auto) 1.31 K/uL (1.2-3.4); Mean Corpuscular Hgb Conc 32.4 g/dL (32-36); Mean Corpuscular Volume 76.4 fL (80-100); Mean Platelet Volume 10.2 fL (7.4-10.4); Monocytes # (auto) 1.27 K/uL (0.11-0.59); Monocytes % (auto) 10.7 %; Neutrophils # (auto) 9.17 K/uL (1.4-6.5); Neutrophils % (auto) 77.1 %; Platelet Count 337 K/uL (130-400); RDW Coefficient of Variation 15.8 % (11.5-14.5); RDW Standard Deviation 44.5 fL (36.4-46.3); Red Blood Count 3.31 M/uL (4.7-6.1)
[2018-12-12 14:35] LABS: BUN Creatinine Ratio 11.1 (10-20); Calcium 8.6 mg/dl (8.5-10.1); Creatinine Clr Calc Pharmacy 52.5 ml/min; Est GFR (African American) 74.1; Est GFR (Non-African American) 63.9; Potassium 3.2 mmol/L (3.5-5.1)
--- NOTE | 2018-12-12 14:55 | Hospitalist Progress Note ---
Date of Service December 12, 2018 Assessment & Plan (1) Sepsis: Sepsis 2/2 likely UTI: hx of stage 4 prostate adenocarcinoma with chronic vega due to urinary retention continues to have fever despite being on Zosyn and Vanco, appropriate abx based on prior cultures blood and urine culture with no growth this admission continue IV fluids and abx for now, may repeat blood cx tomorrow when he spikes fever consider ID consult may require vega removal, will ask Urology to evaluate WBC down to 11k from 16k from 20k -Abd/pelvis CT: no acute abnl, stable chronic changes -CXR negative Tachycardia: sinus tach on monitor, confirmed today due to sepsis and fevers HTN/HLD -Hold home hydralazine TID in the setting of being tachycardic and normotensive -Continue metoprolol 100mg BID DM2 with neuropathy -Diet controlled -SSI and BSG checks per unit protocol - monitor for hypoglycemia, no episodes SONY in the setting of CKD3 -BUN/Cr 34/2.09 possibly somewhat hemoconcentrated; baseline Cr 1.3 -SONY resolved, Cr is 1.1, continue IV fluids at lower rate, still with poor PO intake vega to follow UO, adequate thus far Hypokalemia: not taking PO well add 40mEq to IV fluids, repeat tomorrow Prostate Adenocarcinoma Stage 4 -Continue Lupron - has vega in place, ask urology if it can be removed soon, completed radiation therapy BPH -Continue Tamsulosin Anemia: hx of GI bleed in 02/2018 and likely component of chronic disease given CKD Hgb 12.2 (likely hemoconcentrated in the setting of dehydration), baseline around 9 Hb down slightly to 8.2 no signs of bleeding, will monitor Mild hypercalcemia -Ca 10.5 likely hemoconcentrated, given dehydration on admission. Improved on 12/11 -Received 3L IVFs and on maintenance IVFs -Monitor BMP DVT prop: Lovenox 30mg daily Code: DNR/DNI Dispo: PCU telemetry (2) Prostate cancer: (3) Diabetes: (4) HTN (hypertension): (5) Anemia: (6) BPH (benign prostatic hyperplasia): (7) CKD (chronic kidney disease): (8) SONY (acute kidney injury): (9) Hypokalemia: Subjective patient says he is feeling better since admission still with poor appetite and still having fevers discussed his vega, says he was supposed to follow up with Dr. Osorio to evaluate getting it removed says the appt kept getting pushed back due to infections reviewed labs, WBC down to 11k from 16k Hb down slightly to 8.2 K low at 3.2, will add to fluids Cr at baseline of 1.1 blood and urine cultures show no growth since admission still spiking fevers and still with sinus tachycardia reviewed on tele, confirmed that it was sinus Review of Systems Review of Systems: All systems reviewed & are unremarkable except as noted in HPI & below Constitutional: + fever, + chills, + sweats, + fatigue and + weakness Respiratory: no cough and no dyspnea Cardiovascular: no chest pain Gastrointestinal: + early satiety (poor appetite) and + diarrhea/loose stools; no abdominal pain, no nausea, no vomiting and no constipation Genitourinary: + difficulty urinating (vega in place due to prostate CA) Physical Exam Constitutional: WD/WN, vitals as above Eyes: PERRL, conjunctivae normal, anicteric sclerae ENMT: external ear and nose normal, oropharynx normal Neck: trachea midline, no thyromegaly Respiratory: normal respiratory effort, lungs clear to auscultation Cardiovascular: Rate/Rhythm: regular rhythm and + tachycardic Heart Sounds: normal S1 and normal S2; no murmur Vessels: normal peripheral pulses; no JVD Extremities: normal capillary refill; no edema Gastrointestinal (Abdomen): normal bowel sounds, soft, nontender, no hepatosplenomegaly Musculoskeletal: no cyanosis or clubbing, extremities motor strength 5/5 Skin: no rashes, warm and dry Neurologic: patellar DTR's 2+ bilat, sensation intact and PERRL, EOMI, accommodation nl, no face palsy, no dysarthria Psychiatric: A+Ox3, euthymic affect Lymphatic: no cervical or axillary lymphadenopathy Results & Data Vital Signs (Past 12 Hours) Vital Signs Temp Pulse Pulse Resp BP Pulse Ox 12/12/18 11:07 37.4 C 108 H 22 149/78 H 97 12/12/18 08:00 109 H 12/12/18 07:11 38.0 C H 110 H 19 127/75 100 12/12/18 04:05 37.7 C H 109 H 20 139/78 97 Laboratory Results Laboratory Results - last 24 hr 12/11/18 12/11/18 12/12/18 16:10 20:22 07:26 WBC RBC Hgb Hct MCV MCH MCHC RDW Std Deviation RDW Coeff of Meaghan Plt Count MPV Immature Gran % (Auto) Neut % (Auto) Lymph % (Auto) [place] % (Auto) Eos % (Auto) Baso % (Auto) Immature Gran # (Auto) Neut # (Auto) Lymph # (Auto) [place] # (Auto) Eos # (Auto) Baso # (Auto) Sodium Potassium Chloride Carbon Dioxide Anion Gap BUN Creatinine Est Cr Clr Drug Dosing Est GFR ( Amer) Est GFR (Non-Af Amer) BUN/Creatinine Ratio Glucose POC Glucose 79 83 90 Calcium 12/12/18 12/12/18 12/12/18 10:21 11:14 13:57 WBC 11.90 H RBC 3.31 L Hgb 8.2 L Hct 25.3 L MCV 76.4 L MCH 24.8 L MCHC 32.4 RDW Std Deviation 44.5 RDW Coeff of Meaghan 15.8 H Plt Count 337 MPV 10.2 Immature Gran % (Auto) 0.3 Neut % (Auto) 77.1 Lymph % (Auto) 11.0 [place] % (Auto) 10.7 Eos % (Auto) 0.8 Baso % (Auto) 0.1 Immature Gran # (Auto) 0.04 H Neut # (Auto) 9.17 H Lymph # (Auto) 1.31 [place] # (Auto) 1.27 H Eos # (Auto) 0.10 Baso # (Auto) 0.01 Sodium Potassium Chloride Carbon Dioxide Anion Gap BUN Creatinine 1.15 Est Cr Clr Drug Dosing 51.1 Est GFR ( Amer) 71.7 Est GFR (Non-Af Amer) 61.9 BUN/Creatinine Ratio Glucose POC Glucose 78 Calcium 12/12/18 13:57 WBC RBC Hgb Hct MCV MCH MCHC RDW Std Deviation RDW Coeff of Meaghan Plt Count MPV Immature Gran % (Auto) Neut % (Auto) Lymph % (Auto) [place] % (Auto) Eos % (Auto) Baso % (Auto) Immature Gran # (Auto) Neut # (Auto) Lymph # (Auto) [place] # (Auto) Eos # (Auto) Baso # (Auto) Sodium 139 D Potassium 3.2 L Chloride 111 H Carbon Dioxide 21 Anion Gap 7.0 BUN 12 Creatinine 1.12 Est Cr Clr Drug Dosing 52.5 Est GFR ( Amer) 74.1 Est GFR (Non-Af Amer) 63.9 BUN/Creatinine Ratio 11.1 Glucose 88 POC Glucose Calcium 8.6 Microbiology 12/10/18 22:14 Urine,Clean Catch Urine Culture - Final No growth - less than 1,000 colonies/mL. 12/10/18 19:10 Blood Blood Culture - Preliminary No growth to date. 12/10/18 18:52 Blood Blood Culture - Preliminary No growth to date. Medications Administered Current Inpatient Medications Acetaminophen (Tylenol) 1,000 mg PO TID PRN PRN Reason: Pain Stop: 01/09/19 23:40 Al Hydrox/Mg Hydrox/Simethicone (Maalox) 15 ml PO Q4H PRN PRN Reason: Dyspepsia Stop: 01/09/19 23:40 Dextrose (Dextrose 50%) 25 - 50 ml IV UD PRN; Protocol PRN Reason: Hypoglycemia Protocol Stop: 01/10/19 04:29 Enoxaparin Sodium (Lovenox) 40 mg SQ Q24H NEIL Stop: 01/10/19 08:59 Glucagon (Glucagen) 1 mg IM UD PRN; Protocol PRN Reason: Hypoglycemia Protocol Stop: 01/10/19 04:29 Glucose (Glucose 40%) 15 - 30 gm PO UD PRN; Protocol PRN Reason: Hypoglycemia Protocol Stop: 01/10/19 04:29 Glucose (Dex4 Glucose) 4 - 8 tabs PO UD PRN; Protocol PRN Reason: Hypoglycemia Protocol Stop: 01/10/19 04:29 Heparin Sodium (Beef Lung) (Heparin Sod 10 Unit/Ml Flush) 5 ml FLUSH PRN PRN PRN Reason: Flush Stop: 01/10/19 22:47 Piperacillin Sod/Tazobactam (Sod 3.375 gm/ Dextrose) 115 mls @ 28.75 mls/hr IV Q8H NEIL; Protocol Stop: 12/21/18 01:59 Last Admin: 12/12/18 11:55 Dose: 28.8 mls/hr Documented by: Vancomycin HCl 1,000 mg/ (Sodium Chloride) 270 mls @ 125 mls/hr IV Q18H NEIL Stop: 12/22/18 15:59 Potassium Chloride 40 meq/ (Sodium Chloride) 1,020 mls @ 100 mls/hr IV .[id number] [facility] Stop: 01/11/19 14:59 Insulin Aspart (Novolog Flexpen) 0 units SC ACHS NEIL Stop: 01/10/19 07:29 Last Admin: 12/12/18 11:55 Dose: Not Given Documented by: Metoprolol Succinate (Toprol Xl) 100 mg PO Q12H NEIL Stop: 01/10/19 08:59 Last Admin: 12/12/18 07:42 Dose: 100 mg Documented by: Miscellaneous (Order Awaiting Action) 1 ea N/A DAILY NEIL Stop: 01/10/19 08:59 Last Admin: 12/12/18 07:42 Dose: Not Given Documented by: Miscellaneous (Carbohydrates For Hypoglycemia) 15 - 30 gm PO UD PRN PRN Reason: Hypoglycemia Treatment Stop: 01/10/19 04:29 Miscellaneous Information (Consult) 1 ea N/A UD PRN PRN Reason: Consult Stop: 01/09/19 23:40 Miscellaneous Information (Consult) 1 ea N/A UD PRN PRN Reason: Consult Stop: 01/09/19 23:40 Polyethylene Glycol (Miralax Powder Packet) 17 gm PO DAILY PRN PRN Reason: Constipation Stop: 01/09/19 23:40 Tamsulosin HCl (Flomax) 0.4 mg PO BID [facility] Stop: 01/09/19 23:40 Last Admin: 12/12/18 07:42 Dose: 0.4 mg Documented by: (1) Sepsis Sepsis type: sepsis due to unspecified organism Qualified Code(s): A41.9 - Sepsis, unspecified organism
[2018-12-12] MEDS: VANCOMYCIN HCL 1,000 MG in SODIUM CHLORIDE 0.9% 250 ML IV SCH (16:08)
[2018-12-12] MEDS: POTASSIUM CHLORIDE 40 MEQ in SODIUM CHLORIDE 0.9% 1000ML 1,000 ML IV SCH (16:08)
[2018-12-12] MEDS: ACETAMINOPHEN 500 MG TAB PO PRN (20:15)
--- OUTSIDE RECORDS SUMMARY | 2018-12-12 22:39 | External Medical Summary | Continuity of Care Document ---
:1945 Author Name Cassandra Mccallum, Provider Address Unavailable Unavailable , Care Team Providers Name Role Phone Jordan Prabhakar II, DO Unavailable [email or web address] HAILY HYATT Unavailable Unavailable Problems Neoplasm of prostate, malignant (185) (C61) Urinary retention (788.20) (R33.9) Benign prostatic hyperplasia with urinary obstruction (600.0 1) (N40.1) Elevated PSA (790.93) (R97.20) Enlarged prostate with lower urinary tract symptoms (LUTS) ( 600.01) (N40.1) Nodular prostate with urinary obstruction (600.11) (N40.3) Benign prostatic hypertrophy without urinary obstruction (60 0.00) (N40.0) Nodular prostate with urinary retention (600.11) (N40.3) Allergies and Adverse Reactions No Known Drug Allergies (Allergy) Medications Acetaminophen 500 MG Oral Tablet Refills: 0 Naproxen 500 MG Oral Tablet Refills: 0 Tamsulosin HCl - 0.4 MG Oral Capsule Refills: 0 amLODIPine Besylate 10 MG Oral Tablet Refills: 0 Aspirin 81 MG TABS Refills: 0 Enalapril Maleate 20 MG Oral Tablet Refills: 0 hydroCHLOROthiazide 25 MG Oral Tablet Refills: 0 Lovastatin 20 MG Oral Tablet Refills: 0 Metoprolol Tartrate 25 MG Oral Tablet Refills: 0 Cetirizine HCl - 10 MG Oral Tablet Refills: 0 Tamsulosin HCl - 0.4 MG Oral Capsule; TAKE 1 CAPSULE B edtime DO Jordan Prabhakar II Start: 31-Mar-2017 Quantity: 30 Refills: 5 Procedures Procedures not documented Immunizations Immunizations not documented Family History Father Family history of prostate cancer (V16.42) (Z80.42) Status: Active Social History - Smoking Status Former smoker Never smoker Plan of Treatment Planned Encounters Appointment; Jordan Prabhakar II, DO Start: 19-Dec-2018 14:2 0 Request Planned Observations Planned Goals not documented Results No Known Results Results not documented Encounters Appointment; Jordan Prabhakar II, DO 18-Aug-2018 9:40 Encounter Diagnosis: Problem not documented Appointment; Jordan Prabhakar II, DO 26-Apr-2018 12:45 Encounter Diagnosis: Problem not documented Appointment; Jordan Prabhakar II, DO 11-Mar-2018 12:40 Encounter Diagnosis: Problem not documented Appointment; Jordan Prabhakar II, DO 15-Feb-2018 13:20 Encounter Diagnosis: Problem not documented Appointment; Urology, US probe only 15-Feb-2018 13:20 Encounter Diagnosis: Problem not documented Appointment; Urology, Room 8 15-Feb-2018 13:00 Encounter Diagnosis: Problem not documented Appointment; Jordan Prabhakar II, DO 31-Mar-2017 14:00 Encounter Diagnosis: Problem not documented Appointment; Jordan Prabhakar II, DO 19-Dec-2018 14:20 Encounter Diagnosis: Problem not documented
[2018-12-13] MEDS: POTASSIUM CHLORIDE 40 MEQ in SODIUM CHLORIDE 0.9% 1000ML 1,000 ML IV SCH ×2 (02:00→16:49)
[2018-12-13] MEDS: PIPERACILLIN/TAZOBACTAM 3.375 GM in DEXTROSE 5% 100 ML IV SCH ×2 (02:00→13:54)
[2018-12-13 06:58] LABS: Eosinophils # (auto) 0.19 K/uL (0-0.5); Hematocrit (blood only) 24.1 % (42-52); Immature Granulocytes # (auto) 0.05 K/uL (0.00-0.02); Immature Granulocytes % (auto) 0.5 %; Lymphocytes # (auto) 1.13 K/uL (1.2-3.4); Lymphocytes % (auto) 11.7 %; Mean Corpuscular Hgb Conc 33.2 g/dL (32-36); Mean Corpuscular Volume 75.8 fL (80-100); Mean Platelet Volume 10.3 fL (7.4-10.4); Monocytes # (auto) 1.45 K/uL (0.11-0.59); Neutrophils # (auto) 6.84 K/uL (1.4-6.5); Neutrophils % (auto) 70.8 %; Platelet Count 347 K/uL (130-400); RDW Coefficient of Variation 15.6 % (11.5-14.5); RDW Standard Deviation 43.4 fL (36.4-46.3); Red Blood Count 3.18 M/uL (4.7-6.1); White Blood Count 9.66 K/uL (4.8-10.8)
[2018-12-13 07:30] LABS: BUN Creatinine Ratio 8.5 (10-20); Calcium 8.6 mg/dl (8.5-10.1); Creatinine Clr Calc Pharmacy 62.7 ml/min; Est GFR (African American) 83.9; Est GFR (Non-African American) 72.4; Potassium 3.3 mmol/L (3.5-5.1)
[2018-12-13] MEDS: INSULIN ASPART 100 UNITS/ML 3 ML PEN SC SCH ×4 (07:45→21:31)
[2018-12-13] MEDS: TAMSULOSIN HCL 0.4 MG CAP PO SCH ×2 (08:48→19:36)
[2018-12-13] MEDS: METOPROLOL SUCC 50MG EXT REL TAB PO SCH ×2 (08:48→19:36)
[2018-12-13] MEDS ORDERED: ENOXAPARIN INJ 40 MG/0.4 ML SYR SQ SCH (09:00)
[2018-12-13] MEDS: ACETAMINOPHEN 500 MG TAB PO PRN ×2 (09:44→19:35)
--- NOTE | 2018-12-13 10:37 | Pharmacy Report ---
Pharmacy Abx Dose Short Note - Date of Service December 13, 2018 - Assessment & Plan Assessment * 73 year old M receiving VANCOMYCIN + ZOSYN therapy for complicated UTI (stage 4 prostate CA w/ indwelling vega) * Day # 3 of antimicrobial therapy * Cultures remain negative to date (urine, blood) * Prior urine cx had grown MRSA and enterococcus faecalis, both of which had SAHIL's of 2 for vancomycin * Patient remains febrile however WBC trending down * His urinary catheter has not yet been removed/exchanged --> urology consulted * Renal fxn continues to improve (SCr 2.09-->1.33-->1.15--->1.01); UOP increasing Plan Vancomycin * Would expect vanco to achieve high conc's in urine, however if pt remains febrile after removal/exchange of urinary cath, one may need to consider alternative abx therapy given the MICs of organisms cultured in the past * Given continued improvement in renal fxn will change maint dose to 1000mg (~15.4mg/kg) IV Q 16 hours * Trough will be checked 12/14/18 * Goal trough: 15-20 given MICs of prior organisms in cx Zosyn * eCrCl > 20cc/min * BMI < 35 * Continue 3.375g ext-infusion Q 8 hrs Pharmacy will continue to follow and will adjust dose/frequency as necessary. Thank you.
--- NOTE | 2018-12-13 10:58 | Infectious Disease Consult ---
Date of Consultation December 13, 2018 Assessment & Plan (1) Sepsis: 73-year-old male with metastatic prostate cancer admitted with clinical picture of sepsis from presumed urinary tract infection with persistent fever despite appropriate antibiotics. White count has improved however. Given right upper quadrant tenderness, would obtain sonogram right upper quadrant to rule out acute biliary disease. Will change from vancomycin to daptomycin and hold Zosyn for possibility of drug fever. Will follow. (2) Fever: History of Present Illness Reason for Consultation: Sepsis, fever despite antibiotics Attending Physician: Julian Funez DO History of Present Illness 73-year-old prisoner with diabetes mellitus, BPH, hypertension, prostate cancer, who was on December 10 with clinical picture of sepsis. He was found to have evidence of urinary tract infection with pyelonephritis, with positive urine culture for MRSA and enterococcus. He has been treated with IV vancomycin, but had persistent fevers without obvious other source found on exam or imaging. Zosyn was added without improvement. Currently states his only complaint is mild right upper quadrant pain, currently 2 out of 10 in intensity. No worsening cough or shortness of breath, no chest pain. Allergies Allergy/AdvReac Type Severity Reaction Status Date / Time No Known Allergies Allergy Verified 12/10/18 20:49 Home Medications Home Medications Medication Instructions Recorded Confirmed Type metoprolol succinate 100 mg PO Q12 04/22/18 12/10/18 History tamsulosin 0.4 mg capsule 0.4 mg PO BID 07/18/18 12/10/18 History Lupron Depot (6 Month) 45 mg IM Q6M 12/10/18 12/10/18 History acetaminophen [Tylenol Extra 1,000 mg PO TID PRN 12/10/18 12/10/18 History Strength] Lactobacillus acidophilus 100 mg PO TID #1 cap 12/19/18 Rx daptomycin 425 mg IV DAILY 8 Days ea NS 12/19/18 Rx diltiazem HCl 30 mg PO TID #90 tab 12/19/18 Rx gabapentin 300 mg PO TID #90 cap 12/19/18 Rx metoprolol succinate 100 mg PO Q12H #60 tab 12/19/18 Rx phenazopyridine [Pyridium] 200 mg PO TID PRN 14 Days #30 tab 12/19/18 Rx tamsulosin 0.4 mg PO BID #60 cap 12/19/18 Rx Patient History Medical History Chronic left hip pain (Acute) Indwelling Hamm catheter present (Acute) Prostate cancer (Acute) Urinary retention (Acute) Allergic rhinitis (Chronic) Diabetes mellitus (Chronic) Diabetic neuropathy (Chronic) Diverticulosis (Chronic) H/O type A viral hepatitis (Chronic) Hyperlipidemia (Chronic) Hypertension (Chronic) Iron deficiency anemia (Chronic) Liver disease (Chronic) Weight loss (Chronic) H/O osteomyelitis (Resolved) Family History Sister , Unknown age at ;Kidney failure;Cancer in "her leg" No problems noted. Father , unknown age of Prostate Cancer No problems noted. Mother , unknown age from fall & injuring head No problems noted. Son No problems noted. Sister No problems noted. Sister No problems noted. Social History Preferred Language: Faroese Communication Ability: Effective Visual Impairment: No Limitations Hearing Ability: Normal Government Teacher Required: No Beliefs That Will Affect Care: None Current Living Situation: Other Current Living Situation Comment: [facility]. Other Information That Helps Us Care for You: No Feels Safe at Home: Yes Safety Concerns: Feels Safe At This Time Smoking Status: Never smoker Tobacco Type: cigarettes Cigarettes Per Day: Less than 1/2 PPD when he smoked Second Hand Exposure: No Hx Alcohol Use: No Hx Substance Use: No during the past year weight has: increased > 10 lbs Review of Systems Review of Systems: All systems reviewed & are unremarkable except as noted in HPI & below Physical Exam Constitutional: WD/WN, vitals as above + ill appearing and comfortable; no acute distress Eyes: PERRL, conjunctivae normal, anicteric sclerae ENMT: external ear and nose normal, oropharynx normal Neck: trachea midline, no thyromegaly neck nontender Respiratory: normal respiratory effort, lungs clear to auscultation normal percussion; no respiratory distress Cardiovascular: Rate/Rhythm: regular rate and regular rhythm Heart Sounds: normal S1 and normal S2; no gallop, no murmur and no cardiac rub Gastrointestinal (Abdomen): normal bowel sounds, soft, nontender, no hepatosplenomegaly Musculoskeletal: no cyanosis or clubbing, extremities motor strength 5/5 Skin: no rashes, warm and dry no lesions Neurologic: moves all extremities and awake; no focal motor deficits Motor/Sensory: no sensory deficit Psychiatric: A+Ox3, euthymic affect Lymphatic: no cervical or axillary lymphadenopathy no inguinal lymphadenopathy Results & Data Vital Signs (Past 12 Hours) Vital Signs Temp Pulse Resp BP Pulse Ox 12/13/18 08:04 38.2 C H 118 H 23 155/92 H 98 12/13/18 03:43 36.9 C 116 H 18 145/79 H 99 12/12/18 23:47 37.0 C 102 H 17 144/76 H 96 Laboratory Results Short CBC 12/12/18 12/13/18 Range/Units 13:57 06:09 WBC 11.90 H 9.66 (4.8-10.8) K/uL Hgb 8.2 L 8.0 L (14.0-18.0) g/dL Hct 25.3 L 24.1 L (42-52) % Plt Count 337 347 (130-400) K/uL BMP 12/12/18 12/12/18 12/13/18 10:21 13:57 06:09 Sodium 139 D 140 Potassium 3.2 L 3.3 L Chloride 111 H 112 H Carbon Dioxide 21 23 BUN 12 9 Creatinine 1.15 1.12 1.01 Glucose 88 79 Calcium 8.6 8.6 Diagnostic Findings Microbiology 12/10/18 22:14 Urine,Clean Catch Urine Culture - Final No growth - less than 1,000 colonies/mL. 12/10/18 19:10 Blood Blood Culture - Preliminary No growth to date. 12/10/18 18:52 Blood Blood Culture - Preliminary No growth to date. CT abd pelvis wo con CT DOSE: 349.00 mGy.cm HISTORY: Sepsis sepsis TECHNIQUE: Multiaxial CT images of the abdomen and pelvis were performed without contrast. A dose lowering technique was utilized adhering to the principles of ALARA. COMPARISON STUDY: 03/22/2018 FINDINGS: Lung bases are clear. Liver spleen and pancreas are unremarkable. Kidneys show several nonobstructing cortical calcifications. There is no evidence for hydronephrosis. Bowel pattern throughout the abdomen and pelvis is nonobstructive. There is a mild rectal fecal impaction. Bladder is collapsed with a Hamm catheter within the central aspect of the bladder. Normal appendix There is severe sclerotic and deterioration-type changes of the left hip. These are similar and are minimally progressive compared to the prior exam. The small sclerotic focus of the left iliac wing is again noted. Adenopathy previously described is nonprogressive. IMPRESSION: 1. No acute process of the abdomen or pelvis. 2. Chronic and pre-existing changes as discussed above. 3. Stable changes of adenopathy and pelvic bone sclerosis also unchanged/stable. The above report was generated using voice recognition software. It may contain grammatical, syntax or spelling errors. Electronically signed by: Robel Altamirano M.D. 12/10/2018 8:49 PM (1) Fever Fever type: unspecified Qualified Code(s): R50.9 - Fever, unspecified (2) Sepsis Sepsis type: sepsis due to unspecified organism Qualified Code(s): A41.9 - Sepsis, unspecified organism
[2018-12-13] MEDS ORDERED: DAPTOmycin 500 MG VIAL IV SCH (11:00)
--- NOTE | 2018-12-13 11:17 | Hospitalist Progress Note ---
Date of Service December 13, 2018 Assessment & Plan (1) Sepsis: Sepsis 2/2 likely UTI: hx of stage 4 prostate adenocarcinoma with chronic vega due to urinary retention continues to have fever despite being on Zosyn and Vanco, appropriate abx based on prior cultures ID changed to Daptomycin IV on 12/13, follow for improvement repeat blood cultures drawn on 12/13 echo shows no vegetations checking RUQ US to look for cholecystitis blood and urine culture with no growth this admission, drawn on 12/10 may require vega removal, will ask Urology to evaluate WBC down to 9k from 20k on admission not having diarrhea at this time, certainly if he has diarrhea would check C diff -Abd/pelvis CT: no acute abnl, stable chronic changes -CXR negative Tachycardia: sinus tach on monitor, confirmed today due to sepsis and fevers rates in 100-110 range, stable HTN/HLD -Hold home hydralazine TID in the setting of being tachycardic and normotensive -Continue metoprolol 100mg BID DM2 with neuropathy -Diet controlled -SSI and BSG checks per unit protocol - monitor for hypoglycemia, no episodes SONY in the setting of CKD3 -BUN/Cr 34/2.09 possibly somewhat hemoconcentrated; baseline Cr 1.3 -SONY resolved, Cr is 1.0, continue IV fluids at lower rate, still with poor PO intake vega to follow UO, adequate thus far Hypokalemia: not taking PO well, K up to 3.3 from 3.2 continue 40mEq in IV fluids, repeat tomorrow Prostate Adenocarcinoma Stage 4 -Continue Lupron - has vega in place, ask urology if it can be removed soon, completed radiation therapy BPH -Continue Tamsulosin Anemia: hx of GI bleed in 02/2018 and likely component of chronic disease given CKD Hgb 12.2 (likely hemoconcentrated in the setting of dehydration), baseline around 9 Hb down slightly to 8.0 no signs of bleeding, will monitor Mild hypercalcemia -Ca 10.5 likely hemoconcentrated, given dehydration on admission. Improved on 12/11 -Received 3L IVFs and on maintenance IVFs -Monitor BMP DVT prop: Lovenox 30mg daily Code: DNR/DNI Dispo: PCU telemetry (2) Prostate cancer: (3) Diabetes: (4) HTN (hypertension): (5) Anemia: (6) BPH (benign prostatic hyperplasia): (7) CKD (chronic kidney disease): (8) SONY (acute kidney injury): (9) Hypokalemia: Subjective patient still feeling weak, still experiencing fevers, poor appetite has some RUQ pain today reviewed labs, WBC down to normal, Cr stable, K low at 3.3 but up slightly had fever this morning of 38.2 appreciate ID consult, d/w Dr. Alarcon, change to Daptomycin today, check RUQ US ordered repeat blood cultures this AM awaiting urology consult, would get new urine culture if vega changed checked a limited echo today, no vegetations seen Review of Systems Review of Systems: All systems reviewed & are unremarkable except as noted in HPI & below Constitutional: + fever, + chills, + sweats, + fatigue and + weakness Gastrointestinal: + early satiety (poor appetite) and + diarrhea/loose stools; no abdominal pain, no nausea, no vomiting and no constipation Genitourinary: + difficulty urinating (vega in place due to prostate CA) Physical Exam Constitutional: WD/WN, vitals as above Eyes: PERRL, conjunctivae normal, anicteric sclerae ENMT: external ear and nose normal, oropharynx normal Neck: trachea midline, no thyromegaly Respiratory: normal respiratory effort, lungs clear to auscultation Cardiovascular: Rate/Rhythm: regular rhythm and + tachycardic Heart Sounds: normal S1 and normal S2; no murmur Vessels: normal peripheral pulses; no JVD Extremities: normal capillary refill; no edema Gastrointestinal (Abdomen): normal bowel sounds, soft, nontender, no hepatosplenomegaly Musculoskeletal: no cyanosis or clubbing, extremities motor strength 5/5 Skin: no rashes, warm and dry Neurologic: patellar DTR's 2+ bilat, sensation intact and PERRL, EOMI, accommodation nl, no face palsy, no dysarthria Psychiatric: A+Ox3, euthymic affect Lymphatic: no cervical or axillary lymphadenopathy Results & Data Vital Signs (Past 12 Hours) Vital Signs Temp Pulse Resp BP Pulse Ox 12/13/18 08:04 38.2 C H 118 H 23 155/92 H 98 12/13/18 03:43 36.9 C 116 H 18 145/79 H 99 12/12/18 23:47 37.0 C 102 H 17 144/76 H 96 Laboratory Results Laboratory Results - last 24 hr 12/12/18 12/12/18 12/12/18 11:14 13:57 13:57 WBC 11.90 H RBC 3.31 L Hgb 8.2 L Hct 25.3 L MCV 76.4 L MCH 24.8 L MCHC 32.4 RDW Std Deviation 44.5 RDW Coeff of Meaghan 15.8 H Plt Count 337 MPV 10.2 Immature Gran % (Auto) 0.3 Neut % (Auto) 77.1 Lymph % (Auto) 11.0 [place] % (Auto) 10.7 Eos % (Auto) 0.8 Baso % (Auto) 0.1 Immature Gran # (Auto) 0.04 H Neut # (Auto) 9.17 H Lymph # (Auto) 1.31 [place] # (Auto) 1.27 H Eos # (Auto) 0.10 Baso # (Auto) 0.01 Sodium 139 D Potassium 3.2 L Chloride 111 H Carbon Dioxide 21 Anion Gap 7.0 BUN 12 Creatinine 1.12 Est Cr Clr Drug Dosing 52.5 Est GFR ( Amer) 74.1 Est GFR (Non-Af Amer) 63.9 BUN/Creatinine Ratio 11.1 Glucose 88 POC Glucose 78 Calcium 8.6 12/12/18 12/12/18 12/13/18 16:14 21:32 06:09 WBC 9.66 RBC 3.18 L Hgb 8.0 L Hct 24.1 L MCV 75.8 L MCH 25.2 MCHC 33.2 RDW Std Deviation 43.4 RDW Coeff of Meaghan 15.6 H Plt Count 347 MPV 10.3 Immature Gran % (Auto) 0.5 Neut % (Auto) 70.8 Lymph % (Auto) 11.7 [place] % (Auto) 15.0 Eos % (Auto) 2.0 Baso % (Auto) 0.0 Immature Gran # (Auto) 0.05 H Neut # (Auto) 6.84 H Lymph # (Auto) 1.13 L [place] # (Auto) 1.45 H Eos # (Auto) 0.19 Baso # (Auto) 0.00 Sodium Potassium Chloride Carbon Dioxide Anion Gap BUN Creatinine Est Cr Clr Drug Dosing Est GFR ( Amer) Est GFR (Non-Af Amer) BUN/Creatinine Ratio Glucose POC Glucose 87 105 H Calcium 12/13/18 12/13/18 06:09 07:42 WBC RBC Hgb Hct MCV MCH MCHC RDW Std Deviation RDW Coeff of Meaghan Plt Count MPV Immature Gran % (Auto) Neut % (Auto) Lymph % (Auto) [place] % (Auto) Eos % (Auto) Baso % (Auto) Immature Gran # (Auto) Neut # (Auto) Lymph # (Auto) [place] # (Auto) Eos # (Auto) Baso # (Auto) Sodium 140 Potassium 3.3 L Chloride 112 H Carbon Dioxide 23 Anion Gap 5.0 BUN 9 Creatinine 1.01 Est Cr Clr Drug Dosing 62.7 Est GFR ( Amer) 83.9 Est GFR (Non-Af Amer) 72.4 BUN/Creatinine Ratio 8.5 L Glucose 79 POC Glucose 92 Calcium 8.6 Microbiology 12/10/18 22:14 Urine,Clean Catch Urine Culture - Final No growth - less than 1,000 colonies/mL. 12/10/18 19:10 Blood Blood Culture - Preliminary No growth to date. 12/10/18 18:52 Blood Blood Culture - Preliminary No growth to date. Medications Administered Current Inpatient Medications Acetaminophen (Tylenol) 1,000 mg PO TID PRN PRN Reason: Pain Stop: 01/09/19 23:40 Last Admin: 12/13/18 09:44 Dose: 1,000 mg Documented by: Al Hydrox/Mg Hydrox/Simethicone (Maalox) 15 ml PO Q4H PRN PRN Reason: Dyspepsia Stop: 01/09/19 23:40 Dextrose (Dextrose 50%) 25 - 50 ml IV UD PRN; Protocol PRN Reason: Hypoglycemia Protocol Stop: 01/10/19 04:29 Enoxaparin Sodium (Lovenox) 40 mg SQ Q24H NEIL Stop: 01/10/19 08:59 Last Admin: 12/13/18 08:48 Dose: 40 mg Documented by: Glucagon (Glucagen) 1 mg IM UD PRN; Protocol PRN Reason: Hypoglycemia Protocol Stop: 01/10/19 04:29 Glucose (Glucose 40%) 15 - 30 gm PO UD PRN; Protocol PRN Reason: Hypoglycemia Protocol Stop: 01/10/19 04:29 Glucose (Dex4 Glucose) 4 - 8 tabs PO UD PRN; Protocol PRN Reason: Hypoglycemia Protocol Stop: 01/10/19 04:29 Heparin Sodium (Beef Lung) (Heparin Sod 10 Unit/Ml Flush) 5 ml FLUSH PRN PRN PRN Reason: Flush Stop: 01/10/19 22:47 Potassium Chloride 40 meq/ (Sodium Chloride) 1,020 mls @ 100 mls/hr IV .[id number] [facility] Stop: 01/11/19 14:59 Last Admin: 12/13/18 02:00 Dose: 100 mls/hr Documented by: Daptomycin 425 mg/ Syringe 8.5 mls @ 4.25 mls/min IV DAILY@1200 NEIL; Protocol Stop: 12/23/18 11:59 Insulin Aspart (Novolog Flexpen) 0 units SC ACHS [facility] Stop: 01/10/19 07:29 Last Admin: 12/12/18 21:33 Dose: Not Given Documented by: Metoprolol Succinate (Toprol Xl) 100 mg PO Q12H [facility] Stop: 01/10/19 08:59 Last Admin: 12/13/18 08:48 Dose: 100 mg Documented by: Miscellaneous (Order Awaiting Action) 1 ea N/A DAILY [facility] Stop: 01/10/19 08:59 Last Admin: 12/13/18 11:08 Dose: Not Given Documented by: Miscellaneous (Carbohydrates For Hypoglycemia) 15 - 30 gm PO UD PRN PRN Reason: Hypoglycemia Treatment Stop: 01/10/19 04:29 Polyethylene Glycol (Miralax Powder Packet) 17 gm PO DAILY PRN PRN Reason: Constipation Stop: 01/09/19 23:40 Tamsulosin HCl (Flomax) 0.4 mg PO BID [facility] Stop: 01/09/19 23:40 Last Admin: 12/13/18 08:48 Dose: 0.4 mg Documented by: (1) Sepsis Sepsis type: sepsis due to unspecified organism Qualified Code(s): A41.9 - Sepsis, unspecified organism
[2018-12-13] MEDS: DAPTOmycin 425 MG in SYRINGE 0 ML IV SCH (13:37)
[2018-12-13] MEDS: VANCOMYCIN HCL 1,000 MG in SODIUM CHLORIDE 0.9% 250 ML IV SCH (13:55)
[2018-12-13] MEDS ORDERED: SODIUM CHLORIDE 0.9% 250 ML IV PRN (15:34)
--- NOTE | 2018-12-13 16:37 | Ultrasound Report ---
US abdomen limited HISTORY: Pain. Fever. RUQ pain, fevers. COMPARISON: None. FINDINGS: Pancreas: Poorly seen due to overlying bowel content Liver: Fatty infiltration Gallbladder: No gallbladder wall thickening. No gallstones. CBD: 3 mm Right kidney: No hydronephrosis. IMPRESSION: 1. Fatty infiltration of liver. 2. Otherwise negative study. The above report was generated using voice recognition software. It may contain grammatical, syntax or spelling errors. Electronically signed by: Robel Altamirano M.D. 12/13/2018 4:36 PM
--- NOTE | 2018-12-13 16:44 | Urology Consultation ---
Date of Consultation December 13, 2018 Assessment & Plan (1) Presence of indwelling Vega catheter: (2) Sepsis: (3) Prostate cancer: 73yo M with high risk CaP on ADT and radiation with chronic urinary retention and UTIs presented with suspected urosepsis. Pt doing well from standpoint at this time. CT without concerning findings. Creatinine normalized, good UO. No bother from vega catheter. Currently getting treated for asymptomatic hypoglycemia when evaluating patient. Appreciate ID recommendations for antibiotic management. We discussed options for possible TOV while inpatient. Pt is reluctant to do so, has failed multiple attempts in the past. At the least, I would recommend we change catheter at the end of his admission with 18f coude, appears he is due soon. oysterman may benefit from SP tube, will allow for this discussion on outpatient basis. No further intervention at this time. Thank you for allowing us to participate in the acute care of Mr. Emmanuel. Please reconsult with additional questions, concerns or changes in patient status. History of Present Illness Reason for Consultation: chronic indwelling catheter, UTI, CaP Requesting Physician: Dr. Funez Attending Physician: Julian Funez, DO History of Present Illness 73yo M [facility], established with our practice for high risk CaP 5+4 s/p radiation and hormone therapy with chronic urinary obstruction and UTIs. Last seen as an outpatient in Aug 2018.Outpatient notes reviewed. has had chronic vega x2 years. Wheelchair bound. He was admitted to [facility] on 12/10 with complaint of generalized weakness. On treatment for acute UTI, on bactrim and vancomycin upon admission. Tmax 102.[address] imaging reveals bilateral, tiny nonobs stones, no hydronephrosis. Bladder decompressed with vega intact. No acute findings on imaging. Pt has had indwelling vega with monthly changes for approx. 2 years, around the time of his cancer diagnosis. Per patient last change was "a few weeks ago". Tolerates changes well, denies major issues/pain related to stent changes. Catheter does not state size/shape on balloon, however it sounds like he uses an 18fr Coude. He was also having severe voiding issues which prompted his evaluation, leading to CaP diagnosis. We were asked to see patient for assistance with vega catheter management. Allergies Allergy/AdvReac Type Severity Reaction Status Date / Time No Known Allergies Allergy Verified 12/10/18 20:49 Home Medications Home Medications Medication Instructions Recorded Confirmed Type hydralazine 25 mg PO TID 04/22/18 12/10/18 History metoprolol succinate 100 mg PO Q12 04/22/18 12/10/18 History tamsulosin 0.4 mg capsule 0.4 mg PO BID 07/18/18 12/10/18 History acetaminophen [Tylenol Extra 1,000 mg PO TID PRN 12/10/18 12/10/18 History Strength] leuprolide (6 month) [Lupron Depot 45 mg IM Q6M 12/10/18 12/10/18 History (6 Month)] Patient History Medical History Chronic left hip pain (Acute) Indwelling Vega catheter present (Acute) Prostate cancer (Acute) Urinary retention (Acute) Allergic rhinitis (Chronic) Diabetes mellitus (Chronic) Diabetic neuropathy (Chronic) Diverticulosis (Chronic) H/O type A viral hepatitis (Chronic) Hyperlipidemia (Chronic) Hypertension (Chronic) Iron deficiency anemia (Chronic) Liver disease (Chronic) Weight loss (Chronic) H/O osteomyelitis (Resolved) Family History Sister , Unknown age at ;Kidney failure;Cancer in "her leg" No problems noted. Father , unknown age of Prostate Cancer No problems noted. Mother , unknown age from fall & injuring head No problems noted. Son No problems noted. Sister No problems noted. Sister No problems noted. Social History Preferred Language: Upper Sorbian Communication Ability: Effective Visual Impairment: No Limitations Hearing Ability: Normal [place] Maker Required: No Beliefs That Will Affect Care: None Current Living Situation: Other Current Living Situation Comment: [facility]. Other Information That Helps Us Care for You: No Feels Safe at Home: Yes Safety Concerns: Feels Safe At This Time Smoking Status: Never smoker Tobacco Type: cigarettes Cigarettes Per Day: Less than 1/2 PPD when he smoked Second Hand Exposure: No Hx Alcohol Use: No Hx Substance Use: No during the past year weight has: increased > 10 lbs Review of Systems Constitutional: + fatigue; no fever and no chills Eyes: no tunnel vision Ear, Nose, Mouth, Throat: no ear pain and no tinnitus Respiratory: no cough and no dyspnea Cardiovascular: no chest pain Gastrointestinal: no abdominal pain, no nausea and no vomiting Genitourinary: no dysuria, no difficulty urinating, no urinary frequency, no urinary incontinence, no hematuria and no testicle pain Musculoskeletal: no back pain Integumentary: no rash and no lesions Neurologic: no numbness and no paresthesia Psychiatric: no hopelessness Endocrine: no polydipsia and no polyphagia Hematologic / Lymphatic: no easy bleeding Physical Exam Constitutional: + thin; no acute distress Eyes: no eyelid abnormality ENMT: Ears: no EAC abnormality and no TM abnormality Nose: no external nose abnormality Neck: trachea midline Respiratory: no respiratory distress and does not use accessory muscles Cardiovascular: Vessels: no JVD Chest (Breasts): Chest: no mass Gastrointestinal (Abdomen): Inspection/Auscultation: abdomen not distended and no abdominal edema Percussion/Palpation: abdomen soft; abdomen nontender Musculoskeletal: Head/Neck/Chest: normocephalic and head atraumatic Skin: no rashes Neurologic: Motor/Sensory: no tremor Psychiatric: Orientation: alert and oriented x 3 Eye Contact: good eye contact Genitourinary: no CVA tenderness, no hydrocele and no testicular swelling vega intact, draining clear yellow. Circumcised, Meatus without discharge, bleeding or ulcer, no sign of vega irritation/trauma. Results & Data Vital Signs (Past 12 Hours) Vital Signs Temp Pulse Resp BP Pulse Ox 12/13/18 12:16 36.8 C 102 H 24 147/86 H 98 12/13/18 08:04 38.2 C H 118 H 23 155/92 H 98 Laboratory Results Laboratory Results - last 48 hr 12/11/18 12/12/18 12/12/18 20:22 07:26 10:21 WBC RBC Hgb Hct MCV MCH MCHC RDW Std Deviation RDW Coeff of Meaghan Plt Count MPV Immature Gran % (Auto) Neut % (Auto) Lymph % (Auto) [place] % (Auto) Eos % (Auto) Baso % (Auto) Immature Gran # (Auto) Neut # (Auto) Lymph # (Auto) [place] # (Auto) Eos # (Auto) Baso # (Auto) Sodium Potassium Chloride Carbon Dioxide Anion Gap BUN Creatinine 1.15 Est Cr Clr Drug Dosing 51.1 Est GFR ( Amer) 71.7 Est GFR (Non-Af Amer) 61.9 BUN/Creatinine Ratio Glucose POC Glucose 83 90 Calcium Blood Type Antibody Screen Crossmatch 12/12/18 12/12/18 12/12/18 11:14 13:57 13:57 WBC 11.90 H RBC 3.31 L Hgb 8.2 L Hct 25.3 L MCV 76.4 L MCH 24.8 L MCHC 32.4 RDW Std Deviation 44.5 RDW Coeff of Meaghan 15.8 H Plt Count 337 MPV 10.2 Immature Gran % (Auto) 0.3 Neut % (Auto) 77.1 Lymph % (Auto) 11.0 [place] % (Auto) 10.7 Eos % (Auto) 0.8 Baso % (Auto) 0.1 Immature Gran # (Auto) 0.04 H Neut # (Auto) 9.17 H Lymph # (Auto) 1.31 [place] # (Auto) 1.27 H Eos # (Auto) 0.10 Baso # (Auto) 0.01 Sodium 139 D Potassium 3.2 L Chloride 111 H Carbon Dioxide 21 Anion Gap 7.0 BUN 12 Creatinine 1.12 Est Cr Clr Drug Dosing 52.5 Est GFR ( Amer) 74.1 Est GFR (Non-Af Amer) 63.9 BUN/Creatinine Ratio 11.1 Glucose 88 POC Glucose 78 Calcium 8.6 Blood Type Antibody Screen Crossmatch 12/12/18 12/12/18 12/13/18 16:14 21:32 06:09 WBC 9.66 RBC 3.18 L Hgb 8.0 L Hct 24.1 L MCV 75.8 L MCH 25.2 MCHC 33.2 RDW Std Deviation 43.4 RDW Coeff of Meaghan 15.6 H Plt Count 347 MPV 10.3 Immature Gran % (Auto) 0.5 Neut % (Auto) 70.8 Lymph % (Auto) 11.7 [place] % (Auto) 15.0 Eos % (Auto) 2.0 Baso % (Auto) 0.0 Immature Gran # (Auto) 0.05 H Neut # (Auto) 6.84 H Lymph # (Auto) 1.13 L [place] # (Auto) 1.45 H Eos # (Auto) 0.19 Baso # (Auto) 0.00 Sodium Potassium Chloride Carbon Dioxide Anion Gap BUN Creatinine Est Cr Clr Drug Dosing Est GFR ( Amer) Est GFR (Non-Af Amer) BUN/Creatinine Ratio Glucose POC Glucose 87 105 H Calcium Blood Type Antibody Screen Crossmatch 12/13/18 12/13/18 12/13/18 06:09 07:42 11:20 WBC RBC Hgb Hct MCV MCH MCHC RDW Std Deviation RDW Coeff of Meaghan Plt Count MPV Immature Gran % (Auto) Neut % (Auto) Lymph % (Auto) [place] % (Auto) Eos % (Auto) Baso % (Auto) Immature Gran # (Auto) Neut # (Auto) Lymph # (Auto) [place] # (Auto) Eos # (Auto) Baso # (Auto) Sodium 140 Potassium 3.3 L Chloride 112 H Carbon Dioxide 23 Anion Gap 5.0 BUN 9 Creatinine 1.01 Est Cr Clr Drug Dosing 62.7 Est GFR ( Amer) 83.9 Est GFR (Non-Af Amer) 72.4 BUN/Creatinine Ratio 8.5 L Glucose 79 POC Glucose 92 88 Calcium 8.6 Blood Type Antibody Screen Crossmatch 12/13/18 12/13/18 12/13/18 16:28 16:31 16:45 WBC RBC Hgb Hct MCV MCH MCHC RDW Std Deviation RDW Coeff of Meaghan Plt Count MPV Immature Gran % (Auto) Neut % (Auto) Lymph % (Auto) [place] % (Auto) Eos % (Auto) Baso % (Auto) Immature Gran # (Auto) Neut # (Auto) Lymph # (Auto) [place] # (Auto) Eos # (Auto) Baso # (Auto) Sodium Potassium Chloride Carbon Dioxide Anion Gap BUN Creatinine Est Cr Clr Drug Dosing Est GFR ( Amer) Est GFR (Non-Af Amer) BUN/Creatinine Ratio Glucose POC Glucose 60 L* 63 L* 58 L* Calcium Blood Type Antibody Screen Crossmatch 12/13/18 12/13/18 12/13/18 16:56 16:56 17:03 WBC RBC Hgb 8.3 L Hct 25.0 L MCV MCH MCHC RDW Std Deviation RDW Coeff of Meaghan Plt Count MPV Immature Gran % (Auto) Neut % (Auto) Lymph % (Auto) [place] % (Auto) Eos % (Auto) Baso % (Auto) Immature Gran # (Auto) Neut # (Auto) Lymph # (Auto) [place] # (Auto) Eos # (Auto) Baso # (Auto) Sodium Potassium Chloride Carbon Dioxide Anion Gap BUN Creatinine Est Cr Clr Drug Dosing Est GFR ( Amer) Est GFR (Non-Af Amer) BUN/Creatinine Ratio Glucose POC Glucose 97 Calcium Blood Type B Positive Antibody Screen NEGATIVE Crossmatch See Detail (1) Sepsis Sepsis type: sepsis due to unspecified organism Qualified Code(s): A41.9 - Sepsis, unspecified organism
[2018-12-13 17:07] LABS: Hemoglobin 8.3 g/dL (14.0-18.0)
[2018-12-13] MEDS: PANTOprazole 40 MG TAB PO SCH (19:36)
[2018-12-14] MEDS: POTASSIUM CHLORIDE 40 MEQ in SODIUM CHLORIDE 0.9% 1000ML 1,000 ML IV SCH ×3 (03:02→15:30)
[2018-12-14] MEDS ORDERED: VANCOMYCIN TROUGH ONE ×3 (03:30→21:30)
[2018-12-14] MEDS: ACETAMINOPHEN 500 MG TAB PO PRN ×2 (04:29→12:55)
[2018-12-14 07:26] LABS: Hematocrit (blood only) 24.8 % (42-52); Hemoglobin 8.2 g/dL (14.0-18.0); Mean Corpuscular Hgb Conc 33.1 g/dL (32-36); Mean Corpuscular Volume 75.6 fL (80-100); Mean Platelet Volume 9.6 fL (7.4-10.4); Platelet Count 352 K/uL (130-400); RDW Coefficient of Variation 15.7 % (11.5-14.5); RDW Standard Deviation 43.8 fL (36.4-46.3); Red Blood Count 3.28 M/uL (4.7-6.1)
[2018-12-14] MEDS: INSULIN ASPART 100 UNITS/ML 3 ML PEN SC SCH ×4 (08:00→21:57)
[2018-12-14 08:08] LABS: Creatinine Clr Calc Pharmacy 70.5 ml/min; Est GFR (African American) 96.9; Est GFR (Non-African American) 83.6
[2018-12-14 08:13] LABS: Prostate Specific Antigen 0.132 ng/ml (0-4)
[2018-12-14] MEDS: PANTOprazole 40 MG TAB PO SCH ×2 (10:01→20:35)
[2018-12-14] MEDS: METOPROLOL SUCC 50MG EXT REL TAB PO SCH ×2 (10:01→20:35)
[2018-12-14] MEDS: TAMSULOSIN HCL 0.4 MG CAP PO SCH ×2 (10:01→20:35)
--- NOTE | 2018-12-14 10:35 | Hospitalist Progress Note ---
Date of Service December 14, 2018 Assessment & Plan (1) Sepsis: Sepsis 2/2 likely UTI: hx of stage 4 prostate adenocarcinoma with chronic vega due to urinary retention continues to have fever despite being on Zosyn and Vanco, appropriate abx based on prior cultures ID changed to Daptomycin IV on 12/13 still with fever, could consider drug fever? repeat blood cultures drawn on 12/13, no growth echo shows no vegetations checking RUQ US to look for cholecystitis - no inflammation seen blood and urine culture with no growth this admission, drawn on 12/10 CTA chest on 12/14, no PE as cause of fever and tachycardia may require vega removal, will ask Urology to evaluate recommend changing vega prior to discharge 18 [place] WBC down to 9k from 20k on admission not having diarrhea at this time, certainly if he has diarrhea would check C diff -Abd/pelvis CT: no acute abnl, stable chronic changes -CXR negative Tachycardia: sinus tach on monitor, confirmed today due to sepsis and fevers rates in 100-110 range, stable no PE, ruled out on 12/14 HTN/HLD -Hold home hydralazine TID in the setting of being tachycardic and normotensive -Continue metoprolol 100mg BID DM2 with neuropathy -Diet controlled -SSI and BSG checks per unit protocol - monitor for hypoglycemia, no episodes SONY in the setting of CKD3 -BUN/Cr 34/2.09 possibly somewhat hemoconcentrated; baseline Cr 1.3 -SONY resolved, Cr is 1.0, continue IV fluids at lower rate, still with poor PO intake vega to follow UO, adequate thus far Hypokalemia: not taking PO well, K 3.3 yesterday continue 40mEq in IV fluids, repeat tomorrow Prostate Adenocarcinoma Stage 4 -Continue Lupron - has vega in place, change on discharge - PSA low at 0.13 BPH -Continue Tamsulosin Anemia: hx of GI bleed in 02/2018 and likely component of chronic disease given CKD Hgb 12.2 (likely hemoconcentrated in the setting of dehydration), baseline around 9 Hb down slightly to 8.0, up to 8.2 today no signs of bleeding, will monitor Mild hypercalcemia -Ca 10.5 likely hemoconcentrated, given dehydration on admission. Improved on 12/11 -Received 3L IVFs and on maintenance IVFs -Monitor BMP DVT prop: Lovenox 30mg daily Code: DNR/DNI Dispo: PCU telemetry (2) Prostate cancer: (3) Diabetes: (4) HTN (hypertension): (5) Anemia: (6) BPH (benign prostatic hyperplasia): (7) CKD (chronic kidney disease): (8) SONY (acute kidney injury): (9) Hypokalemia: Subjective patient continues to have fevers and tachycardia appreciate urology consult, no TOV, will exchange vega prior to d/c d/w Dr. Alarcon, could be drug fever, certainly showing clinical improvement except for the fever checked CTA chest today, no PE, looking for alternative cause of the fever and tachycardia reviewed labs, WBC down to 9k today patient say his buttocks was really hot, he was concerned examined buttocks, no tenderness, induration Review of Systems Review of Systems: All systems reviewed & are unremarkable except as noted in HPI & below Constitutional: + fever, + fatigue and + weakness; no chills, no sweats and no daytime sleepiness Respiratory: no cough and no dyspnea Cardiovascular: no chest pain and no palpitations Physical Exam Constitutional: WD/WN, vitals as above Eyes: PERRL, conjunctivae normal, anicteric sclerae ENMT: external ear and nose normal, oropharynx normal Neck: trachea midline, no thyromegaly Respiratory: normal respiratory effort, lungs clear to auscultation Cardiovascular: Rate/Rhythm: regular rhythm and + tachycardic Heart Sounds: normal S1 and normal S2; no murmur Vessels: normal peripheral pulses; no JVD Extremities: normal capillary refill; no edema Gastrointestinal (Abdomen): normal bowel sounds, soft, nontender, no hepatosplenomegaly Musculoskeletal: no cyanosis or clubbing, extremities motor strength 5/5 Skin: no rashes, warm and dry Neurologic: patellar DTR's 2+ bilat, sensation intact and PERRL, EOMI, accommodation nl, no face palsy, no dysarthria Psychiatric: A+Ox3, euthymic affect Lymphatic: no cervical or axillary lymphadenopathy Results & Data Vital Signs (Past 12 Hours) Vital Signs Temp Pulse Resp BP Pulse Ox 12/14/18 08:07 37.1 C 110 H 20 145/82 H 99 12/14/18 03:31 39.0 C H 113 H 17 150/85 H 98 12/13/18 23:44 36.8 C 106 H 18 146/84 H 98 Laboratory Results Laboratory Results - last 24 hr 12/13/18 12/13/18 12/13/18 11:20 16:28 16:31 WBC RBC Hgb Hct MCV MCH MCHC RDW Std Deviation RDW Coeff of Meaghan Plt Count MPV Creatinine Est Cr Clr Drug Dosing Est GFR ( Amer) Est GFR (Non-Af Amer) POC Glucose 88 60 L* 63 L* Prostate Specific Ag Stool Occult Bld Scrn Stl C. diff Tox B Gene Blood Type Antibody Screen Crossmatch 12/13/18 12/13/18 12/13/18 16:45 16:56 16:56 WBC RBC Hgb 8.3 L Hct 25.0 L MCV MCH MCHC RDW Std Deviation RDW Coeff of Meaghan Plt Count MPV Creatinine Est Cr Clr Drug Dosing Est GFR ( Amer) Est GFR (Non-Af Amer) POC Glucose 58 L* Prostate Specific Ag Stool Occult Bld Scrn Stl C. diff Tox B Gene Blood Type B Positive Antibody Screen NEGATIVE Crossmatch See Detail 12/13/18 12/13/18 12/13/18 17:03 18:30 20:32 WBC RBC Hgb Hct MCV MCH MCHC RDW Std Deviation RDW Coeff of Meaghan Plt Count MPV Creatinine Est Cr Clr Drug Dosing Est GFR ( Amer) Est GFR (Non-Af Amer) POC Glucose 97 89 Prostate Specific Ag Stool Occult Bld Scrn Positive H Stl C. diff Tox B Gene Blood Type Antibody Screen Crossmatch 12/14/18 12/14/18 12/14/18 00:00 06:37 06:37 WBC 9.00 RBC 3.28 L Hgb 8.2 L Hct 24.8 L MCV 75.6 L MCH 25.0 MCHC 33.1 RDW Std Deviation 43.8 RDW Coeff of Meaghan 15.7 H Plt Count 352 MPV 9.6 Creatinine 0.89 Est Cr Clr Drug Dosing 70.5 Est GFR ( Amer) 96.9 Est GFR (Non-Af Amer) 83.6 POC Glucose Prostate Specific Ag 0.132 Stool Occult Bld Scrn Stl C. diff Tox B Gene TNP Blood Type Antibody Screen Crossmatch 12/14/18 07:29 WBC RBC Hgb Hct MCV MCH MCHC RDW Std Deviation RDW Coeff of Meaghan Plt Count MPV Creatinine Est Cr Clr Drug Dosing Est GFR ( Amer) Est GFR (Non-Af Amer) POC Glucose 81 Prostate Specific Ag Stool Occult Bld Scrn Stl C. diff Tox B Gene Blood Type Antibody Screen Crossmatch Diagnostic Findings CTA CHEST for PE IMPRESSION: 1. No pulmonary emboli identified. 2. Trace right pleural effusion. 3. No consolidation to suggest pneumonia. Medications Administered Current Inpatient Medications Acetaminophen (Tylenol) 1,000 mg PO TID PRN PRN Reason: Pain Stop: 01/09/19 23:40 Last Admin: 12/14/18 04:29 Dose: 1,000 mg Documented by: Al Hydrox/Mg Hydrox/Simethicone (Maalox) 15 ml PO Q4H PRN PRN Reason: Dyspepsia Stop: 01/09/19 23:40 Dextrose (Dextrose 50%) 25 - 50 ml IV UD PRN; Protocol PRN Reason: Hypoglycemia Protocol Stop: 01/10/19 04:29 Last Admin: 12/13/18 16:49 Dose: 25 ml Documented by: Glucagon (Glucagen) 1 mg IM UD PRN; Protocol PRN Reason: Hypoglycemia Protocol Stop: 01/10/19 04:29 Glucose (Glucose 40%) 15 - 30 gm PO UD PRN; Protocol PRN Reason: Hypoglycemia Protocol Stop: 01/10/19 04:29 Glucose (Dex4 Glucose) 4 - 8 tabs PO UD PRN; Protocol PRN Reason: Hypoglycemia Protocol Stop: 01/10/19 04:29 Heparin Sodium (Beef Lung) (Heparin Sod 10 Unit/Ml Flush) 5 ml FLUSH PRN PRN PRN Reason: Flush Stop: 01/10/19 22:47 Potassium Chloride 40 meq/ (Sodium Chloride) 1,020 mls @ 100 mls/hr IV .[id number] NEIL Stop: 01/11/19 14:59 Last Admin: 12/14/18 03:02 Dose: 100 mls/hr Documented by: Daptomycin 425 mg/ Syringe 8.5 mls @ 4.25 mls/min IV DAILY@1200 NEIL; Protocol Stop: 12/23/18 11:59 Last Admin: 12/13/18 13:37 Dose: 4.25 mls/min Documented by: Sodium Chloride (Nss) 250 mls @ 15 mls/hr IV .[id number] PRN PRN Reason: For Transfusion Stop: 01/12/19 15:33 Insulin Aspart (Novolog Flexpen) 0 units SC ACHS [facility] Stop: 01/10/19 07:29 Last Admin: 12/13/18 21:31 Dose: Not Given Documented by: Metoprolol Succinate (Toprol Xl) 100 mg PO Q12H [facility] Stop: 01/10/19 08:59 Last Admin: 12/14/18 10:01 Dose: 100 mg Documented by: Miscellaneous (Order Awaiting Action) 1 ea N/A DAILY [facility] Stop: 01/10/19 08:59 Last Admin: 12/13/18 11:08 Dose: Not Given Documented by: Miscellaneous (Carbohydrates For Hypoglycemia) 15 - 30 gm PO UD PRN PRN Reason: Hypoglycemia Treatment Stop: 01/10/19 04:29 Last Admin: 12/13/18 16:32 Dose: 15 gm Documented by: Pantoprazole Sodium (Protonix) 40 mg PO BID [facility] Stop: 12/17/18 09:01 Last Admin: 12/14/18 10:01 Dose: 40 mg Documented by: Polyethylene Glycol (Miralax Powder Packet) 17 gm PO DAILY PRN PRN Reason: Constipation Stop: 01/09/19 23:40 Tamsulosin HCl (Flomax) 0.4 mg PO BID [facility] Stop: 01/09/19 23:40 Last Admin: 12/14/18 10:01 Dose: 0.4 mg Documented by: (1) Sepsis Sepsis type: sepsis due to unspecified organism Qualified Code(s): A41.9 - Sepsis, unspecified organism
[2018-12-14] MEDS ORDERED: OPTIRAY 320 125ml IV PRN (11:57)
--- NOTE | 2018-12-14 12:45 | CT Scan Report ---
CT ANGIOGRAPHY OF THE CHEST, PULMONARY EMBOLUS PROTOCOL CLINICAL HISTORY: persistent fever, tachycardia, has prostate CA COMPARISON STUDY: Chest CT October 31, 2017. Chest radiograph December 10, 2018. TECHNIQUE: Following IV administration of 120 mL of Optiray-320, helical axial images of the chest we re obtained utilizing the pulmonary embolus protocol. Maximal intensity projections and sagittal and coronal reformats were viewed on an independent 3D workstation. IV contrast was administered withou t complication. Automated exposure control was utilized for the study. A dose lowering technique wa s utilized adhering to the principles of ALARA. CT DOSE: 248.77 mGy.cm FINDINGS: No pulmonary emboli are identified. There is no thoracic aortic dissection. The heart is m ildly enlarged. A prominent subcarinal lymph node is unchanged since CT of October 17, 2017. A few calci fied right hilar lymph nodes are present. Trace right pleural effusion is noted. There is no pneumoth orax. There is no consolidation to suggest pneumonia. A 6 mm perifissural nodule within the right araceli g on axial image 159 is likely benign. No suspicious osseous lesion within the bony thorax is noted. Elevation of the right hemidiaphragm is unchanged. There is bilateral gynecomastia. IMPRESSION: 1. No pulmonary emboli identified. 2. Trace right pleural effusion. 3. No consolidation to suggest pneumonia. Electronically signed by: Gaston Welch M.D. 12/14/2018 12:44 PM
[2018-12-14] MEDS: DAPTOmycin 425 MG in SYRINGE 0 ML IV SCH (12:56)
--- NOTE | 2018-12-14 14:07 | Infectious Disease Progress Nt ---
Date of Service December 14, 2018 Assessment & Plan (1) Sepsis: 73-year-old male with metastatic prostate cancer admitted with clinical picture of sepsis from presumed urinary tract infection with persistent fever despite appropriate antibiotics. White count has improved however. Not clear whether patient had potential drug fever, would likely show improvement over the next 24 to 48 hours if so. Continue daptomycin for now. Will follow (2) Fever: Subjective Patient seen in follow-up for persistent fever. Had fever early a.m., afebrile since. Still weak and debilitated. No other new specific complaints. Ultrasound without evidence of biliary disease. CT scan of the chest unremarkable. Review of Systems Review of Systems: All systems reviewed & are unremarkable except as noted in HPI & below Physical Exam Constitutional: WD/WN, vitals as above + ill appearing and comfortable; no acute distress Eyes: PERRL, conjunctivae normal, anicteric sclerae ENMT: external ear and nose normal, oropharynx normal Neck: trachea midline, no thyromegaly neck nontender Respiratory: normal respiratory effort, lungs clear to auscultation normal percussion; no respiratory distress Cardiovascular: Rate/Rhythm: regular rate and regular rhythm Heart Sounds: normal S1 and normal S2; no gallop, no murmur and no cardiac rub Gastrointestinal (Abdomen): normal bowel sounds, soft, nontender, no hepatosplenomegaly Musculoskeletal: no cyanosis or clubbing, extremities motor strength 5/5 No spinal tenderness, no joint swelling or erythema Skin: no rashes, warm and dry no lesions Neurologic: moves all extremities and awake; no focal motor deficits Motor/Sensory: no sensory deficit Psychiatric: A+Ox3, euthymic affect Lymphatic: no cervical or axillary lymphadenopathy no inguinal lymphadenopathy Results & Data Vital Signs (Past 12 Hours) Vital Signs Temp Pulse Resp BP Pulse Ox 12/14/18 11:21 37.2 C 108 H 18 155/90 H 96 12/14/18 08:07 37.1 C 110 H 20 145/82 H 99 12/14/18 03:31 39.0 C H 113 H 17 150/85 H 98 Laboratory Results Short CBC 12/13/18 12/14/18 Range/Units 16:56 06:37 WBC 9.00 (4.8-10.8) K/uL Hgb 8.3 L 8.2 L (14.0-18.0) g/dL Hct 25.0 L 24.8 L (42-52) % Plt Count 352 (130-400) K/uL BMP 12/14/18 06:37 Creatinine 0.89 Diagnostic Findings Microbiology 12/10/18 22:14 Urine,Clean Catch Urine Culture - Final No growth - less than 1,000 colonies/mL. 12/10/18 19:10 Blood Blood Culture - Preliminary No growth to date. 12/10/18 18:52 Blood Blood Culture - Preliminary No growth to date. CT ANGIOGRAPHY OF THE CHEST, PULMONARY EMBOLUS PROTOCOL CLINICAL HISTORY: persistent fever, tachycardia, has prostate CA COMPARISON STUDY: Chest CT October 31, 2017. Chest radiograph December 10, 2018. TECHNIQUE: Following IV administration of 120 mL of Optiray-320, helical axial images of the chest were obtained utilizing the pulmonary embolus protocol. Maximal intensity projections and sagittal and coronal reformats were viewed on an independent 3D workstation. IV contrast was administered without complication. Automated exposure control was utilized for the study. A dose lowering technique was utilized adhering to the principles of ALARA. CT DOSE: 248.77 mGy.cm FINDINGS: No pulmonary emboli are identified. There is no thoracic aortic dissection. The heart is mildly enlarged. A prominent subcarinal lymph node is unchanged since CT of October 17, 2017. A few calcified right hilar lymph nodes are present. Trace right pleural effusion is noted. There is no pneumothorax. There is no consolidation to suggest pneumonia. A 6 mm perifissural nodule within the right lung on axial image 159 is likely benign. No suspicious osseous lesion within the bony thorax is noted. Elevation of the right hemidiaphragm is unchanged. There is bilateral gynecomastia. IMPRESSION: 1. No pulmonary emboli identified. 2. Trace right pleural effusion. 3. No consolidation to suggest pneumonia. Electronically signed by: Gaston Welch M.D. 12/14/2018 12:44 PM Dictated: 12/14/18 1234 Transcribed: 12/14/18 1234 (1) Sepsis Sepsis type: sepsis due to unspecified organism Qualified Code(s): A41.9 - Sepsis, unspecified organism (2) Fever Fever type: unspecified Qualified Code(s): R50.9 - Fever, unspecified
--- NOTE | 2018-12-14 17:06 | Urology Progress Note ---
Date of Service December 14, 2018 Assessment & Plan (1) Indwelling Vega catheter present: 72yo M with chronic indwelling catheter, CaP, UTI. Currently undergoing fever workup. Continue abx per ID recommendations. Pt continues to be disinterested in voiding trial. We recommend exchanging sunday ter prior to discharge as pt is likely due (4 week change schedule through residential system). PSA stable, nothing further needs done at this time. Thank you for the consultation. Please reconsult with additional questions, concerns or changes in patient status. Subjective Doing okay today. Still with persistent fevers, feeling chilled, tachycardia. Primary team planning for CT angio to r/o PE. Doing well from standpoint. Tolerating catheter without issue. Vega draining clear yellow. Labs checked, PSA level 0.132. UC&S final no growth (with bactrim on board at time of culture) Review of Systems Review of Systems: All systems reviewed & are unremarkable except as noted in HPI & below Physical Exam Physical Exam: A&Ox3 RRR Abd soft, nontender vega draining clear yellow Results & Data Vital Signs (Past 12 Hours) Vital Signs Temp Pulse Resp BP Pulse Ox 12/14/18 15:55 36.7 C 105 H 18 173/94 H 98 12/14/18 11:21 37.2 C 108 H 18 155/90 H 96 12/14/18 08:07 37.1 C 110 H 20 145/82 H 99 Laboratory Results Laboratory Results - last 48 hr 12/12/18 12/13/18 12/13/18 21:32 06:09 06:09 WBC 9.66 RBC 3.18 L Hgb 8.0 L Hct 24.1 L MCV 75.8 L MCH 25.2 MCHC 33.2 RDW Std Deviation 43.4 RDW Coeff of Meaghan 15.6 H Plt Count 347 MPV 10.3 Immature Gran % (Auto) 0.5 Neut % (Auto) 70.8 Lymph % (Auto) 11.7 [place] % (Auto) 15.0 Eos % (Auto) 2.0 Baso % (Auto) 0.0 Immature Gran # (Auto) 0.05 H Neut # (Auto) 6.84 H Lymph # (Auto) 1.13 L [place] # (Auto) 1.45 H Eos # (Auto) 0.19 Baso # (Auto) 0.00 Sodium 140 Potassium 3.3 L Chloride 112 H Carbon Dioxide 23 Anion Gap 5.0 BUN 9 Creatinine 1.01 Est Cr Clr Drug Dosing 62.7 Est GFR ( Amer) 83.9 Est GFR (Non-Af Amer) 72.4 BUN/Creatinine Ratio 8.5 L Glucose 79 POC Glucose 105 H Calcium 8.6 Prostate Specific Ag Stool Occult Bld Scrn Stl C. diff Tox B Gene Blood Type Antibody Screen Crossmatch 12/13/18 12/13/18 12/13/18 07:42 11:20 16:28 WBC RBC Hgb Hct MCV MCH MCHC RDW Std Deviation RDW Coeff of Meaghan Plt Count MPV Immature Gran % (Auto) Neut % (Auto) Lymph % (Auto) [place] % (Auto) Eos % (Auto) Baso % (Auto) Immature Gran # (Auto) Neut # (Auto) Lymph # (Auto) [place] # (Auto) Eos # (Auto) Baso # (Auto) Sodium Potassium Chloride Carbon Dioxide Anion Gap BUN Creatinine Est Cr Clr Drug Dosing Est GFR ( Amer) Est GFR (Non-Af Amer) BUN/Creatinine Ratio Glucose POC Glucose 92 88 60 L* Calcium Prostate Specific Ag Stool Occult Bld Scrn Stl C. diff Tox B Gene Blood Type Antibody Screen Crossmatch 12/13/18 12/13/18 12/13/18 16:31 16:45 16:56 WBC RBC Hgb 8.3 L Hct 25.0 L MCV MCH MCHC RDW Std Deviation RDW Coeff of Meaghan Plt Count MPV Immature Gran % (Auto) Neut % (Auto) Lymph % (Auto) [place] % (Auto) Eos % (Auto) Baso % (Auto) Immature Gran # (Auto) Neut # (Auto) Lymph # (Auto) [place] # (Auto) Eos # (Auto) Baso # (Auto) Sodium Potassium Chloride Carbon Dioxide Anion Gap BUN Creatinine Est Cr Clr Drug Dosing Est GFR ( Amer) Est GFR (Non-Af Amer) BUN/Creatinine Ratio Glucose POC Glucose 63 L* 58 L* Calcium Prostate Specific Ag Stool Occult Bld Scrn Stl C. diff Tox B Gene Blood Type Antibody Screen Crossmatch 12/13/18 12/13/18 12/13/18 16:56 17:03 18:30 WBC RBC Hgb Hct MCV MCH MCHC RDW Std Deviation RDW Coeff of Meaghan Plt Count MPV Immature Gran % (Auto) Neut % (Auto) Lymph % (Auto) [place] % (Auto) Eos % (Auto) Baso % (Auto) Immature Gran # (Auto) Neut # (Auto) Lymph # (Auto) [place] # (Auto) Eos # (Auto) Baso # (Auto) Sodium Potassium Chloride Carbon Dioxide Anion Gap BUN Creatinine Est Cr Clr Drug Dosing Est GFR ( Amer) Est GFR (Non-Af Amer) BUN/Creatinine Ratio Glucose POC Glucose 97 Calcium Prostate Specific Ag Stool Occult Bld Scrn Positive H Stl C. diff Tox B Gene Blood Type B Positive Antibody Screen NEGATIVE Crossmatch See Detail 12/13/18 12/14/18 12/14/18 20:32 00:00 06:37 WBC 9.00 RBC 3.28 L Hgb 8.2 L Hct 24.8 L MCV 75.6 L MCH 25.0 MCHC 33.1 RDW Std Deviation 43.8 RDW Coeff of Meaghan 15.7 H Plt Count 352 MPV 9.6 Immature Gran % (Auto) Neut % (Auto) Lymph % (Auto) [place] % (Auto) Eos % (Auto) Baso % (Auto) Immature Gran # (Auto) Neut # (Auto) Lymph # (Auto) [place] # (Auto) Eos # (Auto) Baso # (Auto) Sodium Potassium Chloride Carbon Dioxide Anion Gap BUN Creatinine Est Cr Clr Drug Dosing Est GFR ( Amer) Est GFR (Non-Af Amer) BUN/Creatinine Ratio Glucose POC Glucose 89 Calcium Prostate Specific Ag Stool Occult Bld Scrn Stl C. diff Tox B Gene TNP Blood Type Antibody Screen Crossmatch 12/14/18 12/14/18 12/14/18 06:37 07:29 11:19 WBC RBC Hgb Hct MCV MCH MCHC RDW Std Deviation RDW Coeff of Meaghan Plt Count MPV Immature Gran % (Auto) Neut % (Auto) Lymph % (Auto) [place] % (Auto) Eos % (Auto) Baso % (Auto) Immature Gran # (Auto) Neut # (Auto) Lymph # (Auto) [place] # (Auto) Eos # (Auto) Baso # (Auto) Sodium Potassium Chloride Carbon Dioxide Anion Gap BUN Creatinine 0.89 Est Cr Clr Drug Dosing 70.5 Est GFR ( Amer) 96.9 Est GFR (Non-Af Amer) 83.6 BUN/Creatinine Ratio Glucose POC Glucose 81 102 H Calcium Prostate Specific Ag 0.132 Stool Occult Bld Scrn Stl C. diff Tox B Gene Blood Type Antibody Screen Crossmatch 12/14/18 16:31 WBC RBC Hgb Hct MCV MCH MCHC RDW Std Deviation RDW Coeff of Meaghan Plt Count MPV Immature Gran % (Auto) Neut % (Auto) Lymph % (Auto) [place] % (Auto) Eos % (Auto) Baso % (Auto) Immature Gran # (Auto) Neut # (Auto) Lymph # (Auto) [place] # (Auto) Eos # (Auto) Baso # (Auto) Sodium Potassium Chloride Carbon Dioxide Anion Gap BUN Creatinine Est Cr Clr Drug Dosing Est GFR ( Amer) Est GFR (Non-Af Amer) BUN/Creatinine Ratio Glucose POC Glucose 105 H Calcium Prostate Specific Ag Stool Occult Bld Scrn Stl C. diff Tox B Gene Blood Type Antibody Screen Crossmatch
[2018-12-14] MEDS: GABAPENTIN 300 MG CAP PO SCH (21:43)
[2018-12-15] MEDS: POTASSIUM CHLORIDE 40 MEQ in SODIUM CHLORIDE 0.9% 1000ML 1,000 ML IV SCH ×3 (00:45→20:30)
[2018-12-15 04:45] LABS: Basophils # (auto) 0.01 K/uL (0-0.2); Basophils % (auto) 0.1 %; Eosinophils # (auto) 0.23 K/uL (0-0.5); Eosinophils % (auto) 2.9 %; Hematocrit (blood only) 25.3 % (42-52); Hemoglobin 8.5 g/dL (14.0-18.0); Immature Granulocytes # (auto) 0.07 K/uL (0.00-0.02); Immature Granulocytes % (auto) 0.9 %; Lymphocytes # (auto) 1.37 K/uL (1.2-3.4); Mean Corpuscular Hgb Conc 33.6 g/dL (32-36); Mean Corpuscular Volume 74.9 fL (80-100); Mean Platelet Volume 9.1 fL (7.4-10.4); Monocytes # (auto) 1.17 K/uL (0.11-0.59); Monocytes % (auto) 14.5 %; Neutrophils # (auto) 5.21 K/uL (1.4-6.5); Neutrophils % (auto) 64.6 %; Platelet Count 342 K/uL (130-400); RDW Coefficient of Variation 15.7 % (11.5-14.5); RDW Standard Deviation 43.1 fL (36.4-46.3); Red Blood Count 3.38 M/uL (4.7-6.1); White Blood Count 8.06 K/uL (4.8-10.8)
[2018-12-15 05:07] LABS: BUN Creatinine Ratio 6.3 (10-20); Calcium 8.6 mg/dl (8.5-10.1); Creatinine Clr Calc Pharmacy 70.5 ml/min; Est GFR (African American) 96.9; Est GFR (Non-African American) 83.6
[2018-12-15 06:06] LABS: Cdiff Antigen Positive; Cdiff Toxin A+B Negative Cdiff Toxin (Negative)
[2018-12-15] MEDS: TAMSULOSIN HCL 0.4 MG CAP PO SCH ×2 (09:21→20:11)
[2018-12-15] MEDS: GABAPENTIN 300 MG CAP PO SCH ×3 (09:21→20:12)
[2018-12-15] MEDS: dilTIAZem HCL 30 MG TAB PO SCH ×3 (09:21→20:11)
[2018-12-15] MEDS: PANTOprazole 40 MG TAB PO SCH ×2 (09:22→20:12)
[2018-12-15] MEDS: METOPROLOL SUCC 50MG EXT REL TAB PO SCH ×2 (09:22→20:12)
[2018-12-15] MEDS: INSULIN ASPART 100 UNITS/ML 3 ML PEN SC SCH (13:08)
[2018-12-15] MEDS: DAPTOmycin 425 MG in SYRINGE 0 ML IV SCH (13:16)
--- NOTE | 2018-12-15 15:16 | Infectious Disease Progress Nt ---
Date of Service December 15, 2018 Assessment & Plan (1) Sepsis: 73-year-old male with metastatic prostate cancer admitted with clinical picture of sepsis from presumed urinary tract infection with persistent fever despite appropriate antibiotics. White count has improved however. Not clear whether patient had potential drug fever, would likely show improvement over the next 24 to 48 hours if so. Continue daptomycin for now. Will follow (2) Fever: Subjective Patient seen in follow-up for persistent fevers. Still feeling weak and anorexic. No other new specific complaints. Temperature slightly less last 24 hours but still with fever. Cultures remain negative. Review of Systems Review of Systems: All systems reviewed & are unremarkable except as noted in HPI & below Physical Exam Constitutional: WD/WN, vitals as above + ill appearing and comfortable; no acute distress Eyes: PERRL, conjunctivae normal, anicteric sclerae ENMT: external ear and nose normal, oropharynx normal Neck: trachea midline, no thyromegaly neck nontender Respiratory: normal respiratory effort, lungs clear to auscultation normal percussion; no respiratory distress Cardiovascular: Rate/Rhythm: regular rate and regular rhythm Heart Sounds: normal S1 and normal S2; no gallop, no murmur and no cardiac rub Gastrointestinal (Abdomen): normal bowel sounds, soft, nontender, no hepatosplenomegaly Musculoskeletal: no cyanosis or clubbing, extremities motor strength 5/5 Skin: no rashes, warm and dry no lesions Neurologic: moves all extremities and awake; no focal motor deficits Motor/Sensory: no sensory deficit Psychiatric: A+Ox3, euthymic affect Lymphatic: no cervical or axillary lymphadenopathy no inguinal lymphadenopathy Results & Data Vital Signs (Past 12 Hours) Vital Signs Temp Pulse Pulse Resp BP Pulse Ox 12/15/18 11:18 37.1 C 116 H 18 126/73 99 12/15/18 08:00 114 H 12/15/18 07:25 37.8 C H 121 H 18 166/94 H 94 12/15/18 03:39 37.7 C H 116 H 18 165/96 H 99 Laboratory Results Short CBC 12/15/18 Range/Units 04:36 WBC 8.06 (4.8-10.8) K/uL Hgb 8.5 L (14.0-18.0) g/dL Hct 25.3 L (42-52) % Plt Count 342 (130-400) K/uL BMP 12/15/18 04:36 Sodium 137 Potassium 4.0 D Chloride 110 H Carbon Dioxide 22 BUN 6 L Creatinine 0.89 Glucose 83 Calcium 8.6 Diagnostic Findings Microbiology 12/13/18 08:46 Blood Blood Culture - Preliminary No growth to date. 12/13/18 08:46 Blood Blood Culture - Preliminary No growth to date. 12/10/18 22:14 Urine,Clean Catch Urine Culture - Final No growth - less than 1,000 colonies/mL. 12/10/18 19:10 Blood Blood Culture - Preliminary No growth to date. 12/10/18 18:52 Blood Blood Culture - Preliminary No growth to date. CT ANGIOGRAPHY OF THE CHEST, PULMONARY EMBOLUS PROTOCOL CLINICAL HISTORY: persistent fever, tachycardia, has prostate CA COMPARISON STUDY: Chest CT October 31, 2017. Chest radiograph December 10, 2018. TECHNIQUE: Following IV administration of 120 mL of Optiray-320, helical axial images of the chest were obtained utilizing the pulmonary embolus protocol. Maximal intensity projections and sagittal and coronal reformats were viewed on an independent 3D workstation. IV contrast was administered without complication. Automated exposure control was utilized for the study. A dose lowering technique was utilized adhering to the principles of ALARA. CT DOSE: 248.77 mGy.cm FINDINGS: No pulmonary emboli are identified. There is no thoracic aortic dissection. The heart is mildly enlarged. A prominent subcarinal lymph node is unchanged since CT of October 17, 2017. A few calcified right hilar lymph nodes are present. Trace right pleural effusion is noted. There is no pneumothorax. There is no consolidation to suggest pneumonia. A 6 mm perifissural nodule within the right lung on axial image 159 is likely benign. No suspicious osseous lesion within the bony thorax is noted. Elevation of the right hemidiaphragm is unchanged. There is bilateral gynecomastia. IMPRESSION: 1. No pulmonary emboli identified. 2. Trace right pleural effusion. 3. No consolidation to suggest pneumonia. Electronically signed by: Gaston Welch M.D. 12/14/2018 12:44 PM Dictated: 12/14/18 1234 (1) Fever Fever type: unspecified Qualified Code(s): R50.9 - Fever, unspecified (2) Sepsis Sepsis type: sepsis due to unspecified organism Qualified Code(s): A41.9 - Sepsis, unspecified organism
--- NOTE | 2018-12-15 15:46 | Hospitalist Progress Note ---
Date of Service December 15, 2018 Assessment & Plan (1) Sepsis: Sepsis 2/2 likely UTI: hx of stage 4 prostate adenocarcinoma with chronic vega due to urinary retention no fever now for 24 hours, temperatures still above normal but all < 38 ID changed to Daptomycin IV on 12/13 continue to monitor closely repeat blood cultures drawn on 12/13, no growth echo shows no vegetations checking RUQ US to look for cholecystitis - no inflammation seen blood and urine culture with no growth this admission, drawn on 12/10 CTA chest on 12/14, no PE as cause of fever and tachycardia asked RN to change out vega today C diff gene is positive but toxin negative -Abd/pelvis CT: no acute abnl, stable chronic changes -CXR negative Tachycardia: sinus tach on monitor due to sepsis and fevers rates in 100-110 range, stable no PE, ruled out on 12/14 add Diltiazem today to the metoprolol he takes chronically HR improved later HTN/HLD -Continue metoprolol 100mg BID, add Diltiazem - was on Hydralazine prior to admission drug induced fever? SLE? unlikely but active infection seems to have been ruled out DM2 with neuropathy -Diet controlled -SSI and BSG checks per unit protocol - monitor for hypoglycemia, no episodes SONY in the setting of CKD3 -BUN/Cr 34/2.09 possibly somewhat hemoconcentrated; baseline Cr 1.3 -SONY resolved, Cr is 1.0, continue IV fluids at lower rate, still with poor PO intake vega to follow UO, adequate thus far Hypokalemia: K up to 4.0 Prostate Adenocarcinoma Stage 4 -Continue Lupron - has vega in place, change on discharge - PSA low at 0.13 BPH -Continue Tamsulosin Anemia: hx of GI bleed in 02/2018 and likely component of chronic disease given CKD Hgb 12.2 (likely hemoconcentrated in the setting of dehydration), baseline around 9 Hb down slightly to 8.0, up to 8.5 today no signs of bleeding, will monitor Mild hypercalcemia -Ca 10.5 likely hemoconcentrated, given dehydration on admission. Improved on 12/11 -Received 3L IVFs and on maintenance IVFs -Monitor BMP DVT prop: Lovenox 30mg daily Code: DNR/DNI Dispo: PCU telemetry (2) Prostate cancer: (3) Diabetes: (4) HTN (hypertension): (5) Anemia: (6) BPH (benign prostatic hyperplasia): (7) CKD (chronic kidney disease): (8) SONY (acute kidney injury): (9) Hypokalemia: Subjective little improvement in patient's energy or appetite he is exhibiting signs of being deconditioned and growing depressed no fevers today which is improvement some improvement in HR with adding Diltiazem this morning discussed with ID, still unsure of etiology of fevers C diff tested last night, + for the gene but toxin not active Review of Systems Review of Systems: All systems reviewed & are unremarkable except as noted in HPI & below Constitutional: + fatigue, + malaise and + weakness; no fever, no chills and no sweats Psychiatric: + depression Physical Exam Constitutional: WD/WN, vitals as above Eyes: PERRL, conjunctivae normal, anicteric sclerae ENMT: external ear and nose normal, oropharynx normal Neck: trachea midline, no thyromegaly Respiratory: normal respiratory effort, lungs clear to auscultation Cardiovascular: Rate/Rhythm: regular rhythm and + tachycardic Heart Sounds: normal S1 and normal S2; no murmur Vessels: normal peripheral pulses; no JVD Extremities: normal capillary refill; no edema Gastrointestinal (Abdomen): normal bowel sounds, soft, nontender, no hepatosplenomegaly Musculoskeletal: no cyanosis or clubbing, extremities motor strength 5/5 Skin: no rashes, warm and dry Neurologic: patellar DTR's 2+ bilat, sensation intact and PERRL, EOMI, accommodation nl, no face palsy, no dysarthria Psychiatric: Orientation: alert and oriented x 3 Affect: + depressed affect Mood: + depressed mood Lymphatic: no cervical or axillary lymphadenopathy Results & Data Vital Signs (Past 12 Hours) Vital Signs Temp Pulse Pulse Resp BP Pulse Ox 12/15/18 11:18 37.1 C 116 H 18 126/73 99 12/15/18 08:00 114 H 12/15/18 07:25 37.8 C H 121 H 18 166/94 H 94 Laboratory Results Laboratory Results - last 24 hr 12/14/18 12/14/18 12/15/18 16:31 20:54 03:45 WBC RBC Hgb Hct MCV MCH MCHC RDW Std Deviation RDW Coeff of Meaghan Plt Count MPV Immature Gran % (Auto) Neut % (Auto) Lymph % (Auto) Mills % (Auto) Eos % (Auto) Baso % (Auto) Immature Gran # (Auto) Neut # (Auto) Lymph # (Auto) Mills # (Auto) Eos # (Auto) Baso # (Auto) Sodium Potassium Chloride Carbon Dioxide Anion Gap BUN Creatinine Est Cr Clr Drug Dosing Est GFR ( Amer) Est GFR (Non-Af Amer) BUN/Creatinine Ratio Glucose POC Glucose 105 H 94 Calcium Stl C. diff Tox B Gene Positive Cdiff Gene A Stl C.difficile Tox A&B Negative Cdiff Toxin 12/15/18 12/15/18 12/15/18 04:36 04:36 07:23 WBC 8.06 RBC 3.38 L Hgb 8.5 L Hct 25.3 L MCV 74.9 L MCH 25.1 MCHC 33.6 RDW Std Deviation 43.1 RDW Coeff of Meaghan 15.7 H Plt Count 342 MPV 9.1 Immature Gran % (Auto) 0.9 Neut % (Auto) 64.6 Lymph % (Auto) 17.0 Mills % (Auto) 14.5 Eos % (Auto) 2.9 Baso % (Auto) 0.1 Immature Gran # (Auto) 0.07 H Neut # (Auto) 5.21 Lymph # (Auto) 1.37 Mills # (Auto) 1.17 H Eos # (Auto) 0.23 Baso # (Auto) 0.01 Sodium 137 Potassium 4.0 D Chloride 110 H Carbon Dioxide 22 Anion Gap 5.0 BUN 6 L Creatinine 0.89 Est Cr Clr Drug Dosing 70.5 Est GFR ( Amer) 96.9 Est GFR (Non-Af Amer) 83.6 BUN/Creatinine Ratio 6.3 L Glucose 83 POC Glucose 90 Calcium 8.6 Stl C. diff Tox B Gene Stl C.difficile Tox A&B 12/15/18 11:15 WBC RBC Hgb Hct MCV MCH MCHC RDW Std Deviation RDW Coeff of Meaghan Plt Count MPV Immature Gran % (Auto) Neut % (Auto) Lymph % (Auto) Mills % (Auto) Eos % (Auto) Baso % (Auto) Immature Gran # (Auto) Neut # (Auto) Lymph # (Auto) Mills # (Auto) Eos # (Auto) Baso # (Auto) Sodium Potassium Chloride Carbon Dioxide Anion Gap BUN Creatinine Est Cr Clr Drug Dosing Est GFR ( Amer) Est GFR (Non-Af Amer) BUN/Creatinine Ratio Glucose POC Glucose 137 H Calcium Stl C. diff Tox B Gene Stl C.difficile Tox A&B Medications Administered Current Inpatient Medications Acetaminophen (Tylenol) 1,000 mg PO TID PRN PRN Reason: Pain Stop: 01/09/19 23:40 Last Admin: 12/14/18 12:55 Dose: 1,000 mg Documented by: Al Hydrox/Mg Hydrox/Simethicone (Maalox) 15 ml PO Q4H PRN PRN Reason: Dyspepsia Stop: 01/09/19 23:40 Dextrose (Dextrose 50%) 25 - 50 ml IV UD PRN; Protocol PRN Reason: Hypoglycemia Protocol Stop: 01/10/19 04:29 Last Admin: 12/13/18 16:49 Dose: 25 ml Documented by: Diltiazem HCl (Cardizem) 30 mg PO TID [facility] Stop: 01/14/19 08:59 Last Admin: 12/15/18 09:21 Dose: 30 mg Documented by: Gabapentin (Neurontin) 300 mg PO TID [facility] Stop: 01/13/19 20:59 Last Admin: 12/15/18 09:21 Dose: 300 mg Documented by: Glucagon (Glucagen) 1 mg IM UD PRN; Protocol PRN Reason: Hypoglycemia Protocol Stop: 01/10/19 04:29 Glucose (Glucose 40%) 15 - 30 gm PO UD PRN; Protocol PRN Reason: Hypoglycemia Protocol Stop: 01/10/19 04:29 Glucose (Dex4 Glucose) 4 - 8 tabs PO UD PRN; Protocol PRN Reason: Hypoglycemia Protocol Stop: 01/10/19 04:29 Heparin Sodium (Beef Lung) (Heparin Sod 10 Unit/Ml Flush) 5 ml FLUSH PRN PRN PRN Reason: Flush Stop: 01/10/19 22:47 Potassium Chloride 40 meq/ (Sodium Chloride) 1,020 mls @ 100 mls/hr IV .[id number] [facility] Stop: 01/11/19 14:59 Last Admin: 12/15/18 13:16 Dose: 100 mls/hr Documented by: Daptomycin 425 mg/ Syringe 8.5 mls @ 4.25 mls/min IV DAILY@1200 NEIL; Protocol Stop: 12/23/18 11:59 Last Admin: 12/15/18 13:16 Dose: 4.25 mls/min Documented by: Sodium Chloride (Nss) 250 mls @ 15 mls/hr IV .[id number] PRN PRN Reason: For Transfusion Stop: 01/12/19 15:33 Ioversol (Optiray 320 125ml) 120 ml IV ONCE PRN PRN Reason: Interaction Checking Stop: 12/18/18 11:56 Last Admin: 12/14/18 11:58 Dose: 120 ml Documented by: Metoprolol Succinate (Toprol Xl) 100 mg PO Q12H [facility] Stop: 01/10/19 08:59 Last Admin: 12/15/18 09:22 Dose: 100 mg Documented by: Miscellaneous (Order Awaiting Action) 1 ea N/A DAILY NEIL Stop: 01/10/19 08:59 Last Admin: 12/15/18 10:10 Dose: Not Given Documented by: Miscellaneous (Carbohydrates For Hypoglycemia) 15 - 30 gm PO UD PRN PRN Reason: Hypoglycemia Treatment Stop: 01/10/19 04:29 Last Admin: 12/13/18 16:32 Dose: 15 gm Documented by: Pantoprazole Sodium (Protonix) 40 mg PO BID [facility] Stop: 12/17/18 09:01 Last Admin: 12/15/18 09:22 Dose: 40 mg Documented by: Polyethylene Glycol (Miralax Powder Packet) 17 gm PO DAILY PRN PRN Reason: Constipation Stop: 01/09/19 23:40 Tamsulosin HCl (Flomax) 0.4 mg PO BID [facility] Stop: 01/09/19 23:40 Last Admin: 12/15/18 09:21 Dose: 0.4 mg Documented by: (1) Sepsis Sepsis type: sepsis due to unspecified organism Qualified Code(s): A41.9 - Sepsis, unspecified organism
[2018-12-16] MEDS: POTASSIUM CHLORIDE 40 MEQ in SODIUM CHLORIDE 0.9% 1000ML 1,000 ML IV SCH ×2 (06:42→17:04)
[2018-12-16] MEDS: TAMSULOSIN HCL 0.4 MG CAP PO SCH ×2 (08:16→21:17)
[2018-12-16] MEDS: dilTIAZem HCL 30 MG TAB PO SCH ×3 (08:16→21:17)
[2018-12-16] MEDS: PANTOprazole 40 MG TAB PO SCH ×2 (08:16→21:17)
[2018-12-16] MEDS: METOPROLOL SUCC 50MG EXT REL TAB PO SCH ×2 (08:16→21:17)
[2018-12-16] MEDS: GABAPENTIN 300 MG CAP PO SCH ×3 (08:16→21:17)
[2018-12-16] MEDS: ACETAMINOPHEN 500 MG TAB PO PRN ×2 (08:17→18:54)
[2018-12-16 08:52] LABS: Basophils # (auto) 0.01 K/uL (0-0.2); Basophils % (auto) 0.1 %; Eosinophils % (auto) 2.8 %; Hematocrit (blood only) 23.9 % (42-52); Hemoglobin 8.1 g/dL (14.0-18.0); Immature Granulocytes # (auto) 0.06 K/uL (0.00-0.02); Immature Granulocytes % (auto) 0.8 %; Lymphocytes % (auto) 19.4 %; Mean Corpuscular Hgb Conc 33.9 g/dL (32-36); Mean Corpuscular Volume 75.2 fL (80-100); Mean Platelet Volume 9.1 fL (7.4-10.4); Monocytes # (auto) 1.46 K/uL (0.11-0.59); Monocytes % (auto) 20.2 %; Neutrophils # (auto) 4.08 K/uL (1.4-6.5); Neutrophils % (auto) 56.7 %; Platelet Count 350 K/uL (130-400); RDW Coefficient of Variation 16.1 % (11.5-14.5); RDW Standard Deviation 43.4 fL (36.4-46.3); Red Blood Count 3.18 M/uL (4.7-6.1); White Blood Count 7.21 K/uL (4.8-10.8)
[2018-12-16 09:27] LABS: Albumin Level 2.3 gm/dl (3.4-5.0); BUN Creatinine Ratio 5.9 (10-20); Calcium 8.6 mg/dl (8.5-10.1); Creatinine Clr Calc Pharmacy 63.7 ml/min; Est GFR (African American) 91.6; Potassium 3.9 mmol/L (3.5-5.1)
[2018-12-16 09:31] LABS: Albumin Globulin Ratio 0.5 (0.9-2); Bilirubin,Total 0.3 mg/dl (0.2-1); Globulin 4.4 gm/dl (2.5-4.0); Total Protein 6.7 gm/dl (6.4-8.2)
[2018-12-16] MEDS: DAPTOmycin 425 MG in SYRINGE 0 ML IV SCH (12:45)
--- NOTE | 2018-12-16 15:05 | Hospitalist Progress Note ---
Date of Service December 16, 2018 Assessment & Plan (1) Sepsis: Sepsis 2/2 likely UTI: hx of stage 4 prostate adenocarcinoma with chronic vega due to urinary retention fever early this morning, 38.2 continue Daptomycin IV repeat blood cultures drawn on 12/13, no growth echo shows no vegetations checking RUQ US to look for cholecystitis - no inflammation seen blood and urine culture with no growth this admission, drawn on 12/10 CTA chest on 12/14, no PE as cause of fever and tachycardia asked RN to change out vega on 12/15 C diff gene is positive but toxin negative -Abd/pelvis CT: no acute abnl, stable chronic changes -CXR negative will check procalcitonin, ESR and CRP tomorrow morning repeat CBC and BMP Tachycardia: sinus tach on monitor due to sepsis and fevers rates in 100-110 range, stable no PE, ruled out on 12/14 added Diltiazem on 12/15 to the metoprolol he takes chronically HR improved today transfer to medical floor HTN/HLD -Continue metoprolol 100mg BID, continue Diltiazem 30mg TID - was on Hydralazine prior to admission drug induced fever? SLE? unlikely but active infection seems to have been ruled out DM2 with neuropathy -Diet controlled -SSI and BSG checks per unit protocol - monitor for hypoglycemia, no episodes SONY in the setting of CKD3 -BUN/Cr 34/2.09 possibly somewhat hemoconcentrated; baseline Cr 1.3 -SONY resolved, Cr is 1.0, continue IV fluids at lower rate, still with poor PO intake vega to follow UO, adequate thus far Hypokalemia: K stable Prostate Adenocarcinoma Stage 4 -Continue Lupron - has vega in place, change on discharge - PSA low at 0.13 BPH -Continue Tamsulosin vega changed on 12/15 Anemia: hx of GI bleed in 02/2018 and likely component of chronic disease given CKD Hgb 12.2 (likely hemoconcentrated in the setting of dehydration), baseline around 9 Hb low but stable at 8.2 no signs of bleeding, will monitor Mild hypercalcemia -Ca 10.5 likely hemoconcentrated, given dehydration on admission. Improved on 12/11 -Received 3L IVFs and on maintenance IVFs -Monitor BMP DVT prop: Lovenox 30mg daily Code: DNR/DNI Dispo: transfer to medical floor (2) Prostate cancer: (3) Diabetes: (4) HTN (hypertension): (5) Anemia: (6) BPH (benign prostatic hyperplasia): (7) CKD (chronic kidney disease): (8) SONY (acute kidney injury): (9) Hypokalemia: Subjective patient feels well, just weak and deconditioned trying to eat more but having a difficult time, no appetite denies nausea, denies abdominal pain c/o pain in buttocks, persistent no dyspnea, no cough reviewed labs, stable will transfer to medical floor HR improved on Diltiazem Review of Systems Review of Systems: All systems reviewed & are unremarkable except as noted in HPI & below Constitutional: + fatigue and + weakness; no fever and no sweats Gastrointestinal: + early satiety; no abdominal pain, no nausea, no vomiting, no constipation and no diarrhea/loose stools Physical Exam Constitutional: WD/WN, vitals as above Eyes: PERRL, conjunctivae normal, anicteric sclerae ENMT: external ear and nose normal, oropharynx normal Neck: trachea midline, no thyromegaly Respiratory: normal respiratory effort, lungs clear to auscultation Cardiovascular: Rate/Rhythm: regular rhythm and + tachycardic Heart Sounds: normal S1 and normal S2; no murmur Vessels: normal peripheral pulses; no JVD Extremities: normal capillary refill; no edema Gastrointestinal (Abdomen): normal bowel sounds, soft, nontender, no hepatosplenomegaly Musculoskeletal: no cyanosis or clubbing, extremities motor strength 5/5 Skin: no rashes, warm and dry Neurologic: patellar DTR's 2+ bilat, sensation intact and PERRL, EOMI, accommodation nl, no face palsy, no dysarthria Psychiatric: A+Ox3, euthymic affect Orientation: alert and oriented x 3 Affect: + depressed affect Mood: + depressed mood Lymphatic: no cervical or axillary lymphadenopathy Results & Data Vital Signs (Past 12 Hours) Vital Signs Temp Pulse Pulse Resp BP Pulse Ox 12/16/18 12:29 36.8 C 97 H 18 141/81 H 99 12/16/18 08:09 37.7 C H 114 H 18 140/83 100 12/16/18 08:00 106 H 12/16/18 03:46 38.2 C H 105 H 23 159/88 H 98 Laboratory Results Laboratory Results - last 24 hr 12/13/18 12/16/18 12/16/18 16:56 08:37 08:37 WBC 7.21 RBC 3.18 L Hgb 8.1 L Hct 23.9 L MCV 75.2 L MCH 25.5 MCHC 33.9 RDW Std Deviation 43.4 RDW Coeff of Meaghan 16.1 H Plt Count 350 MPV 9.1 Immature Gran % (Auto) 0.8 Neut % (Auto) 56.7 Lymph % (Auto) 19.4 Pierce % (Auto) 20.2 Eos % (Auto) 2.8 Baso % (Auto) 0.1 Immature Gran # (Auto) 0.06 H Neut # (Auto) 4.08 Lymph # (Auto) 1.40 Pierce # (Auto) 1.46 H Eos # (Auto) 0.20 Baso # (Auto) 0.01 Sodium 137 Potassium 3.9 Chloride 110 H Carbon Dioxide 22 Anion Gap 6.0 BUN 6 L Creatinine 0.94 Est Cr Clr Drug Dosing 63.7 Est GFR ( Amer) 91.6 Est GFR (Non-Af Amer) 79.0 BUN/Creatinine Ratio 5.9 L Glucose 111 H Calcium 8.6 Total Bilirubin 0.3 AST 24 ALT 25 Alkaline Phosphatase 95 Total Protein 6.7 Albumin 2.3 L Globulin 4.4 H Albumin/Globulin Ratio 0.5 L Crossmatch See Detail Microbiology 12/10/18 19:10 Blood Blood Culture - Final No growth 12/10/18 18:52 Blood Blood Culture - Final No growth 12/13/18 08:46 Blood Blood Culture - Preliminary No growth to date. 12/13/18 08:46 Blood Blood Culture - Preliminary No growth to date. 12/10/18 22:14 Urine,Clean Catch Urine Culture - Final No growth - less than 1,000 colonies/mL. Medications Administered Current Inpatient Medications Acetaminophen (Tylenol) 1,000 mg PO TID PRN PRN Reason: Pain Stop: 01/09/19 23:40 Last Admin: 12/16/18 08:17 Dose: 1,000 mg Documented by: Al Hydrox/Mg Hydrox/Simethicone (Maalox) 15 ml PO Q4H PRN PRN Reason: Dyspepsia Stop: 01/09/19 23:40 Dextrose (Dextrose 50%) 25 - 50 ml IV UD PRN; Protocol PRN Reason: Hypoglycemia Protocol Stop: 01/10/19 04:29 Last Admin: 12/13/18 16:49 Dose: 25 ml Documented by: Diltiazem HCl (Cardizem) 30 mg PO TID [facility] Stop: 01/14/19 08:59 Last Admin: 12/16/18 12:46 Dose: 30 mg Documented by: Gabapentin (Neurontin) 300 mg PO TID [facility] Stop: 01/13/19 20:59 Last Admin: 12/16/18 12:46 Dose: 300 mg Documented by: Glucagon (Glucagen) 1 mg IM UD PRN; Protocol PRN Reason: Hypoglycemia Protocol Stop: 01/10/19 04:29 Glucose (Glucose 40%) 15 - 30 gm PO UD PRN; Protocol PRN Reason: Hypoglycemia Protocol Stop: 01/10/19 04:29 Glucose (Dex4 Glucose) 4 - 8 tabs PO UD PRN; Protocol PRN Reason: Hypoglycemia Protocol Stop: 01/10/19 04:29 Heparin Sodium (Beef Lung) (Heparin Sod 10 Unit/Ml Flush) 5 ml FLUSH PRN PRN PRN Reason: Flush Stop: 01/10/19 22:47 Potassium Chloride 40 meq/ (Sodium Chloride) 1,020 mls @ 100 mls/hr IV .[id number] [facility] Stop: 01/11/19 14:59 Last Admin: 12/16/18 06:42 Dose: 100 mls/hr Documented by: Daptomycin 425 mg/ Syringe 8.5 mls @ 4.25 mls/min IV DAILY@1200 NEIL; Protocol Stop: 12/23/18 11:59 Last Admin: 12/16/18 12:45 Dose: 4.25 mls/min Documented by: Sodium Chloride (Nss) 250 mls @ 15 mls/hr IV .[id number] PRN PRN Reason: For Transfusion Stop: 01/12/19 15:33 Ioversol (Optiray 320 125ml) 120 ml IV ONCE PRN PRN Reason: Interaction Checking Stop: 12/18/18 11:56 Last Admin: 12/14/18 11:58 Dose: 120 ml Documented by: Metoprolol Succinate (Toprol Xl) 100 mg PO Q12H [facility] Stop: 01/10/19 08:59 Last Admin: 12/16/18 08:16 Dose: 100 mg Documented by: Melinacellaneous (Order Awaiting Action) 1 ea N/A DAILY NEIL Stop: 01/10/19 08:59 Last Admin: 12/16/18 08:18 Dose: Not Given Documented by: Miscellaneous (Carbohydrates For Hypoglycemia) 15 - 30 gm PO UD PRN PRN Reason: Hypoglycemia Treatment Stop: 01/10/19 04:29 Last Admin: 12/13/18 16:32 Dose: 15 gm Documented by: Pantoprazole Sodium (Protonix) 40 mg PO BID [facility] Stop: 12/17/18 09:01 Last Admin: 12/16/18 08:16 Dose: 40 mg Documented by: Polyethylene Glycol (Miralax Powder Packet) 17 gm PO DAILY PRN PRN Reason: Constipation Stop: 01/09/19 23:40 Tamsulosin HCl (Flomax) 0.4 mg PO BID [facility] Stop: 01/09/19 23:40 Last Admin: 12/16/18 08:16 Dose: 0.4 mg Documented by: (1) Sepsis Sepsis type: sepsis due to unspecified organism Qualified Code(s): A41.9 - Sepsis, unspecified organism
--- NOTE | 2018-12-16 15:27 | Infectious Disease Progress Nt ---
Date of Service December 16, 2018 Assessment & Plan (1) Sepsis: 73-year-old male with metastatic prostate cancer admitted with clinical picture of sepsis from presumed urinary tract infection with persistent fever despite appropriate antibiotics. White count has improved however. Not clear whether patient had potential drug fever, or possibility that this is tumor fever. Will continue on daptomycin for now to cover staph urinary tract infection. (2) Fever: Subjective Patient seen in follow-up for unexplained fever. Continues to have intermittent fever without localizing symptoms. Still weak and anorexic. CT scan without obvious infection. Cultures remain negative. Review of Systems Review of Systems: All systems reviewed & are unremarkable except as noted in HPI & below Physical Exam Constitutional: WD/WN, vitals as above + ill appearing and comfortable; no acute distress Eyes: PERRL, conjunctivae normal, anicteric sclerae ENMT: external ear and nose normal, oropharynx normal Neck: trachea midline, no thyromegaly neck nontender Respiratory: normal respiratory effort, lungs clear to auscultation normal percussion; no respiratory distress Cardiovascular: Rate/Rhythm: regular rate and regular rhythm Heart Sounds: normal S1 and normal S2; no gallop, no murmur and no cardiac rub Gastrointestinal (Abdomen): normal bowel sounds, soft, nontender, no hepatosplenomegaly Musculoskeletal: no cyanosis or clubbing, extremities motor strength 5/5 Skin: no rashes, warm and dry no lesions Neurologic: moves all extremities and awake; no focal motor deficits Motor/Sensory: no sensory deficit Psychiatric: A+Ox3, euthymic affect Lymphatic: no cervical or axillary lymphadenopathy no inguinal lymphadenopathy Results & Data Vital Signs (Past 12 Hours) Vital Signs Temp Pulse Pulse Resp BP Pulse Ox 12/16/18 12:29 36.8 C 97 H 18 141/81 H 99 12/16/18 08:09 37.7 C H 114 H 18 140/83 100 12/16/18 08:00 106 H 12/16/18 03:46 38.2 C H 105 H 23 159/88 H 98 Laboratory Results Short CBC 12/16/18 Range/Units 08:37 WBC 7.21 (4.8-10.8) K/uL Hgb 8.1 L (14.0-18.0) g/dL Hct 23.9 L (42-52) % Plt Count 350 (130-400) K/uL BMP 12/16/18 08:37 Sodium 137 Potassium 3.9 Chloride 110 H Carbon Dioxide 22 BUN 6 L Creatinine 0.94 Glucose 111 H Calcium 8.6 Liver Function 12/16/18 Range/Units 08:37 Total Bilirubin 0.3 (0.2-1) mg/dl AST 24 (15-37) U/L ALT 25 (12-78) U/L Alkaline Phosphatase 95 (45-117) U/L Albumin 2.3 L (3.4-5.0) gm/dl Diagnostic Findings Microbiology 12/10/18 19:10 Blood Blood Culture - Final No growth 12/10/18 18:52 Blood Blood Culture - Final No growth 12/13/18 08:46 Blood Blood Culture - Preliminary No growth to date. 12/13/18 08:46 Blood Blood Culture - Preliminary No growth to date. 12/10/18 22:14 Urine,Clean Catch Urine Culture - Final No growth - less than 1,000 colonies/mL. CT ANGIOGRAPHY OF THE CHEST, PULMONARY EMBOLUS PROTOCOL CLINICAL HISTORY: persistent fever, tachycardia, has prostate CA COMPARISON STUDY: Chest CT October 31, 2017. Chest radiograph December 10, 2018. TECHNIQUE: Following IV administration of 120 mL of Optiray-320, helical axial images of the chest were obtained utilizing the pulmonary embolus protocol. Maximal intensity projections and sagittal and coronal reformats were viewed on an independent 3D workstation. IV contrast was administered without complication. Automated exposure control was utilized for the study. A dose lowering technique was utilized adhering to the principles of ALARA. CT DOSE: 248.77 mGy.cm FINDINGS: No pulmonary emboli are identified. There is no thoracic aortic dissection. The heart is mildly enlarged. A prominent subcarinal lymph node is unchanged since CT of October 17, 2017. A few calcified right hilar lymph nodes are present. Trace right pleural effusion is noted. There is no pneumothorax. There is no consolidation to suggest pneumonia. A 6 mm perifissural nodule within the right lung on axial image 159 is likely benign. No suspicious osseous lesion within the bony thorax is noted. Elevation of the right hemidiaphragm is unchanged. There is bilateral gynecomastia. IMPRESSION: 1. No pulmonary emboli identified. 2. Trace right pleural effusion. 3. No consolidation to suggest pneumonia. Electronically signed by: Gaston Welch M.D. 12/14/2018 12:44 PM Dictated: 12/14/18 1234 (1) Sepsis Sepsis type: sepsis due to unspecified organism Qualified Code(s): A41.9 - Sepsis, unspecified organism (2) Fever Fever type: unspecified Qualified Code(s): R50.9 - Fever, unspecified
[2018-12-17] MEDS: POTASSIUM CHLORIDE 40 MEQ in SODIUM CHLORIDE 0.9% 1000ML 1,000 ML IV SCH ×3 (04:08→21:07)
[2018-12-17 06:39] LABS: Basophils # (auto) 0.01 K/uL (0-0.2); Basophils % (auto) 0.1 %; Eosinophils # (auto) 0.27 K/uL (0-0.5); Hematocrit (blood only) 24.9 % (42-52); Hemoglobin 8.4 g/dL (14.0-18.0); Immature Granulocytes # (auto) 0.06 K/uL (0.00-0.02); Immature Granulocytes % (auto) 0.9 %; Lymphocytes # (auto) 1.32 K/uL (1.2-3.4); Lymphocytes % (auto) 19.7 %; Mean Corpuscular Hgb Conc 33.7 g/dL (32-36); Mean Corpuscular Volume 74.8 fL (80-100); Mean Platelet Volume 9.5 fL (7.4-10.4); Monocytes # (auto) 1.51 K/uL (0.11-0.59); Monocytes % (auto) 22.6 %; Neutrophils # (auto) 3.52 K/uL (1.4-6.5); Neutrophils % (auto) 52.7 %; Platelet Count 395 K/uL (130-400); RDW Coefficient of Variation 16.2 % (11.5-14.5); RDW Standard Deviation 43.7 fL (36.4-46.3); Red Blood Count 3.33 M/uL (4.7-6.1); White Blood Count 6.69 K/uL (4.8-10.8)
[2018-12-17 07:16] LABS: BUN Creatinine Ratio 8.4 (10-20); Calcium 8.8 mg/dl (8.5-10.1); Creatinine Clr Calc Pharmacy 66.5 ml/min; Est GFR (African American) 96.5; Est GFR (Non-African American) 83.3; Potassium 4.3 mmol/L (3.5-5.1)
[2018-12-17 07:19] LABS: C Reactive Protein 6.48 mg/dl (0-0.29)
[2018-12-17] MEDS: PANTOprazole 40 MG TAB PO SCH (07:45)
[2018-12-17] MEDS: GABAPENTIN 300 MG CAP PO SCH ×3 (09:29→21:10)
[2018-12-17] MEDS: dilTIAZem HCL 30 MG TAB PO SCH ×3 (09:30→21:11)
[2018-12-17] MEDS: METOPROLOL SUCC 50MG EXT REL TAB PO SCH ×2 (09:30→21:10)
[2018-12-17] MEDS: TAMSULOSIN HCL 0.4 MG CAP PO SCH ×2 (09:30→21:27)
[2018-12-17] MEDS: DAPTOmycin 425 MG in SYRINGE 0 ML IV SCH (12:38)
--- NOTE | 2018-12-17 16:25 | Hospitalist Progress Note ---
Date of Service December 17, 2018 Assessment & Plan (1) Sepsis: Sepsis 2/2 likely UTI: hx of stage 4 prostate adenocarcinoma with chronic vega due to urinary retention No fever since 12/16 at 3am, so going on over 24 hours which is first continue Daptomycin IV repeat blood cultures drawn on 12/13, no growth echo shows no vegetations checking RUQ US to look for cholecystitis - no inflammation seen blood and urine culture with no growth this admission, drawn on 12/10 CTA chest on 12/14, no PE as cause of fever and tachycardia asked RN to change out vega on 12/15 C diff gene is positive but toxin negative -Abd/pelvis CT: no acute abnl, stable chronic changes -CXR negative no fever is an improvement, plus he is eating better, better spirits still concerned about ESR being > 90 could this be vasculitis given fevers and high ESR? patient was adequately treated for UTI based on cultures for several days and was still getting fevers will ask Rheumatology for routine consult appears that he had a work up in recent past, MELANIE was negative Tachycardia: sinus tach due to sepsis and fevers rates in 100-110 range, stable no PE, ruled out on 12/14 added Diltiazem on 12/15 to the metoprolol he takes chronically HR improved today transfer to medical floor would continue the Diltiazem on discharge HTN/HLD -Continue metoprolol 100mg BID, continue Diltiazem 30mg TID - was on Hydralazine prior to admission drug induced fever? SLE? unlikely but active infection seems to have been ruled out consult Rheumatology to see tomorrow DM2 with neuropathy -Diet controlled -SSI and BSG checks per unit protocol - monitor for hypoglycemia, no episodes SONY in the setting of CKD3 -BUN/Cr 34/2.09 possibly somewhat hemoconcentrated; baseline Cr 1.3 -SONY resolved, Cr is 0.9, stop fluids since PO intake improved vega to follow UO, adequate thus far Hypokalemia: K stable at 4.3 Prostate Adenocarcinoma Stage 4 -Continue Lupron - has vega in place, change on discharge - PSA low at 0.13 BPH -Continue Tamsulosin vega changed on 12/15 Anemia: hx of GI bleed in 02/2018 and likely component of chronic disease given CKD Hgb 12.2 (likely hemoconcentrated in the setting of dehydration), baseline around 9 Hb low but stable at 8.2 no signs of bleeding, will monitor Mild hypercalcemia -Ca 10.5 likely hemoconcentrated, given dehydration on admission. Improved on 12/11 -Received 3L IVFs and on maintenance IVFs -Monitor BMP DVT prop: Lovenox 30mg daily Code: DNR/DNI Disposition: follow up on Rheumatology consult, feel that patient could likely go on Wednesday as long as he remains fever free discuss with Dr. Alarcon about outpatient antibiotics, currently on Daptomycin (2) Prostate cancer: (3) Diabetes: (4) HTN (hypertension): (5) Anemia: (6) BPH (benign prostatic hyperplasia): (7) CKD (chronic kidney disease): (8) SONY (acute kidney injury): (9) Hypokalemia: Subjective patient actually feeling better today, the first time he said that all week no fever for over 24 hours, first time this has happened as well patient is eating better today, first day he has had an appetite reviewed labs, WBC normal, Hb low but stable at 8.4 BMP is normal ESR is >90 and CRP 6.48, Procalcitonin 0.13 reviewed prior labs, patient had a serological work up in the past, MELANIE negative discussed with patient that maybe fevers due to vasculitis given ESR > 90 Dr. Alarcon mentioned drug fever but no fever today tumor fever also low likelihood given PSA < 1 Review of Systems Review of Systems: All systems reviewed & are unremarkable except as noted in HPI & below Constitutional: + fatigue and + weakness; no fever, no chills and no sweats Respiratory: no cough and no dyspnea Cardiovascular: no chest pain and no edema Gastrointestinal: no abdominal pain, no nausea, no vomiting, no constipation and no diarrhea/loose stools Physical Exam Constitutional: WD/WN, vitals as above Eyes: PERRL, conjunctivae normal, anicteric sclerae ENMT: external ear and nose normal, oropharynx normal Neck: trachea midline, no thyromegaly Respiratory: normal respiratory effort, lungs clear to auscultation Cardiovascular: Rate/Rhythm: regular rhythm and + tachycardic Heart Sounds: normal S1 and normal S2; no murmur Vessels: normal peripheral pulses; no JVD Extremities: normal capillary refill; no edema Gastrointestinal (Abdomen): normal bowel sounds, soft, nontender, no hepatosplenomegaly Musculoskeletal: no cyanosis or clubbing, extremities motor strength 5/5 Skin: no rashes, warm and dry Neurologic: patellar DTR's 2+ bilat, sensation intact and PERRL, EOMI, accommodation nl, no face palsy, no dysarthria Psychiatric: A+Ox3, euthymic affect Orientation: alert and oriented x 3 Affect: + depressed affect Mood: + depressed mood Lymphatic: no cervical or axillary lymphadenopathy Results & Data Vital Signs (Past 12 Hours) Vital Signs Temp Pulse Resp BP Pulse Ox 12/17/18 15:05 36.9 C 97 H 16 147/79 H 99 12/17/18 07:05 36.9 C 98 H 19 159/70 H 98 Laboratory Results Laboratory Results - last 24 hr 12/16/18 12/17/18 12/17/18 20:24 05:51 05:51 WBC RBC Hgb Hct MCV MCH MCHC RDW Std Deviation RDW Coeff of Meaghan Plt Count MPV Immature Gran % (Auto) Neut % (Auto) Lymph % (Auto) Moody % (Auto) Eos % (Auto) Baso % (Auto) Immature Gran # (Auto) Neut # (Auto) Lymph # (Auto) Moody # (Auto) Eos # (Auto) Baso # (Auto) ESR > 90 H Sodium 134 L Potassium 4.3 Chloride 107 Carbon Dioxide 23 Anion Gap 4.0 BUN 8 Creatinine 0.90 Est Cr Clr Drug Dosing 66.5 Est GFR ( Amer) 96.5 Est GFR (Non-Af Amer) 83.3 BUN/Creatinine Ratio 8.4 L Glucose 80 POC Glucose 108 H Calcium 8.8 C-Reactive Protein 6.48 H Procalcitonin 12/17/18 12/17/18 12/17/18 05:51 05:51 07:44 WBC 6.69 RBC 3.33 L Hgb 8.4 L Hct 24.9 L MCV 74.8 L MCH 25.2 MCHC 33.7 RDW Std Deviation 43.7 RDW Coeff of Meaghan 16.2 H Plt Count 395 MPV 9.5 Immature Gran % (Auto) 0.9 Neut % (Auto) 52.7 Lymph % (Auto) 19.7 Moody % (Auto) 22.6 Eos % (Auto) 4.0 Baso % (Auto) 0.1 Immature Gran # (Auto) 0.06 H Neut # (Auto) 3.52 Lymph # (Auto) 1.32 Moody # (Auto) 1.51 H Eos # (Auto) 0.27 Baso # (Auto) 0.01 ESR Sodium Potassium Chloride Carbon Dioxide Anion Gap BUN Creatinine Est Cr Clr Drug Dosing Est GFR ( Amer) Est GFR (Non-Af Amer) BUN/Creatinine Ratio Glucose POC Glucose 66 L* Calcium C-Reactive Protein Procalcitonin 0.13 12/17/18 12/17/18 07:45 11:39 WBC RBC Hgb Hct MCV MCH MCHC RDW Std Deviation RDW Coeff of Meaghan Plt Count MPV Immature Gran % (Auto) Neut % (Auto) Lymph % (Auto) Moody % (Auto) Eos % (Auto) Baso % (Auto) Immature Gran # (Auto) Neut # (Auto) Lymph # (Auto) Moody # (Auto) Eos # (Auto) Baso # (Auto) ESR Sodium Potassium Chloride Carbon Dioxide Anion Gap BUN Creatinine Est Cr Clr Drug Dosing Est GFR ( Amer) Est GFR (Non-Af Amer) BUN/Creatinine Ratio Glucose POC Glucose 72 93 Calcium C-Reactive Protein Procalcitonin Medications Administered Current Inpatient Medications Acetaminophen (Tylenol) 1,000 mg PO TID PRN PRN Reason: Pain Stop: 01/09/19 23:40 Last Admin: 12/16/18 18:54 Dose: 1,000 mg Documented by: Al Hydrox/Mg Hydrox/Simethicone (Maalox) 15 ml PO Q4H PRN PRN Reason: Dyspepsia Stop: 01/09/19 23:40 Dextrose (Dextrose 50%) 25 - 50 ml IV UD PRN; Protocol PRN Reason: Hypoglycemia Protocol Stop: 01/10/19 04:29 Last Admin: 12/13/18 16:49 Dose: 25 ml Documented by: Diltiazem HCl (Cardizem) 30 mg PO TID [facility]1983 Stop: 01/14/19 08:59 Last Admin: 12/17/18 14:28 Dose: 30 mg Documented by: Gabapentin (Neurontin) 300 mg PO TID [facility]1983 Stop: 01/13/19 20:59 Last Admin: 12/17/18 14:28 Dose: 300 mg Documented by: Glucagon (Glucagen) 1 mg IM UD PRN; Protocol PRN Reason: Hypoglycemia Protocol Stop: 01/10/19 04:29 Glucose (Glucose 40%) 15 - 30 gm PO UD PRN; Protocol PRN Reason: Hypoglycemia Protocol Stop: 01/10/19 04:29 Glucose (Dex4 Glucose) 4 - 8 tabs PO UD PRN; Protocol PRN Reason: Hypoglycemia Protocol Stop: 01/10/19 04:29 Heparin Sodium (Beef Lung) (Heparin Sod 10 Unit/Ml Flush) 5 ml FLUSH PRN PRN PRN Reason: Flush Stop: 01/10/19 22:47 Last Admin: 12/17/18 05:53 Dose: 10 ml Documented by: Potassium Chloride 40 meq/ (Sodium Chloride) 1,020 mls @ 100 mls/hr IV .[id number] NEIL Stop: 01/11/19 14:59 Last Admin: 12/17/18 12:38 Dose: 100 mls/hr Documented by: Daptomycin 425 mg/ Syringe 8.5 mls @ 4.25 mls/min IV DAILY@1200 NEIL; Protocol Stop: 12/23/18 11:59 Last Admin: 12/17/18 12:38 Dose: 4.25 mls/min Documented by: Sodium Chloride (Nss) 250 mls @ 15 mls/hr IV .[id number] PRN PRN Reason: For Transfusion Stop: 01/12/19 15:33 Ioversol (Optiray 320 125ml) 120 ml IV ONCE PRN PRN Reason: Interaction Checking Stop: 12/18/18 11:56 Last Admin: 12/14/18 11:58 Dose: 120 ml Documented by: Metoprolol Succinate (Toprol Xl) 100 mg PO Q12H NEIL Stop: 01/10/19 08:59 Last Admin: 12/17/18 09:30 Dose: 100 mg Documented by: Miscellaneous (Order Awaiting Action) 1 ea N/A DAILY NEIL Stop: 01/10/19 08:59 Last Admin: 12/17/18 09:30 Dose: Not Given Documented by: Miscellaneous (Carbohydrates For Hypoglycemia) 15 - 30 gm PO UD PRN PRN Reason: Hypoglycemia Treatment Stop: 01/10/19 04:29 Last Admin: 12/13/18 16:32 Dose: 15 gm Documented by: Polyethylene Glycol (Miralax Powder Packet) 17 gm PO DAILY PRN PRN Reason: Constipation Stop: 01/09/19 23:40 Tamsulosin HCl (Flomax) 0.4 mg PO BID NEIL Stop: 01/09/19 23:40 Last Admin: 12/17/18 09:30 Dose: 0.4 mg Documented by: (1) Sepsis Sepsis type: sepsis due to unspecified organism Qualified Code(s): A41.9 - Sepsis, unspecified organism
--- NOTE | 2018-12-17 21:27 | Infectious Disease Progress Nt ---
Date of Service December 17, 2018 Assessment & Plan (1) Sepsis: 73-year-old male with metastatic prostate cancer admitted with clinical picture of sepsis from presumed urinary tract infection with persistent fever despite appropriate antibiotics. White count has improved however. Currently appears to be modulating, may have had drug fever from either vancomycin or Zosyn. Would continue daptomycin to complete 2 weeks of IV antibiotics followed by oral antibiotic for pyelonephritis. Will follow. (2) Fever: Subjective Patient seen in follow-up for unexplained fever. Offers no new complaints today. Has been afebrile since yesterday. All cultures have remained negative. Review of Systems Review of Systems: All systems reviewed & are unremarkable except as noted in HPI & below Physical Exam Constitutional: WD/WN, vitals as above + ill appearing and comfortable; no acute distress Eyes: PERRL, conjunctivae normal, anicteric sclerae ENMT: external ear and nose normal, oropharynx normal Neck: trachea midline, no thyromegaly neck nontender Respiratory: normal respiratory effort, lungs clear to auscultation normal percussion; no respiratory distress Cardiovascular: Rate/Rhythm: regular rate and regular rhythm Heart Sounds: normal S1 and normal S2; no gallop, no murmur and no cardiac rub Gastrointestinal (Abdomen): normal bowel sounds, soft, nontender, no hepatosplenomegaly Musculoskeletal: no cyanosis or clubbing, extremities motor strength 5/5 Skin: no rashes, warm and dry no lesions Neurologic: moves all extremities and awake; no focal motor deficits Motor/Sensory: no sensory deficit Psychiatric: A+Ox3, euthymic affect Lymphatic: no cervical or axillary lymphadenopathy no inguinal lymphadenopathy Results & Data Vital Signs (Past 12 Hours) Vital Signs Temp Pulse Resp BP Pulse Ox 12/17/18 15:05 36.9 C 97 H 16 147/79 H 99 Laboratory Results Short CBC 12/17/18 Range/Units 05:51 WBC 6.69 (4.8-10.8) K/uL Hgb 8.4 L (14.0-18.0) g/dL Hct 24.9 L (42-52) % Plt Count 395 (130-400) K/uL BMP 12/17/18 05:51 Sodium 134 L Potassium 4.3 Chloride 107 Carbon Dioxide 23 BUN 8 Creatinine 0.90 Glucose 80 Calcium 8.8 Diagnostic Findings Microbiology 12/15/18 22:45 Urine,Indwelling Cath Urine Culture - Preliminary No growth - Less than 1,000 colonies/mL, Final report to follow. 12/10/18 19:10 Blood Blood Culture - Final No growth 12/10/18 18:52 Blood Blood Culture - Final No growth 12/13/18 08:46 Blood Blood Culture - Preliminary No growth to date. 12/13/18 08:46 Blood Blood Culture - Preliminary No growth to date. 12/10/18 22:14 Urine,Clean Catch Urine Culture - Final No growth - less than 1,000 colonies/mL. (1) Sepsis Sepsis type: sepsis due to unspecified organism Qualified Code(s): A41.9 - Sepsis, unspecified organism (2) Fever Fever type: unspecified Qualified Code(s): R50.9 - Fever, unspecified
[2018-12-18 06:13] LABS: Basophils # (auto) 0.01 K/uL (0-0.2); Basophils % (auto) 0.2 %; Eosinophils # (auto) 0.21 K/uL (0-0.5); Eosinophils % (auto) 3.3 %; Hematocrit (blood only) 24.8 % (42-52); Hemoglobin 8.3 g/dL (14.0-18.0); Immature Granulocytes # (auto) 0.08 K/uL (0.00-0.02); Immature Granulocytes % (auto) 1.2 %; Lymphocytes # (auto) 1.42 K/uL (1.2-3.4); Mean Corpuscular Hgb Conc 33.5 g/dL (32-36); Mean Corpuscular Volume 74.7 fL (80-100); Mean Platelet Volume 9.9 fL (7.4-10.4); Monocytes # (auto) 1.24 K/uL (0.11-0.59); Monocytes % (auto) 19.3 %; Neutrophils # (auto) 3.48 K/uL (1.4-6.5); Platelet Count 431 K/uL (130-400); RDW Coefficient of Variation 16.3 % (11.5-14.5); RDW Standard Deviation 43.8 fL (36.4-46.3); Red Blood Count 3.32 M/uL (4.7-6.1); White Blood Count 6.44 K/uL (4.8-10.8)
[2018-12-18 06:50] LABS: Calcium 8.7 mg/dl (8.5-10.1); Creatinine Clr Calc Pharmacy 60.5 ml/min; Est GFR (Non-African American) 74.2; Potassium 4.3 mmol/L (3.5-5.1)
[2018-12-18] MEDS: ACETAMINOPHEN 500 MG TAB PO PRN (07:20)
[2018-12-18] MEDS: dilTIAZem HCL 30 MG TAB PO SCH ×3 (07:21→20:37)
[2018-12-18] MEDS: TAMSULOSIN HCL 0.4 MG CAP PO SCH ×2 (07:21→20:37)
[2018-12-18] MEDS: METOPROLOL SUCC 50MG EXT REL TAB PO SCH ×2 (07:22→20:36)
[2018-12-18] MEDS: GABAPENTIN 300 MG CAP PO SCH ×3 (07:22→20:36)
[2018-12-18] MEDS: DAPTOmycin 425 MG in SYRINGE 0 ML IV SCH (12:12)
--- NOTE | 2018-12-18 15:14 | Hospitalist Progress Note ---
Date of Service December 18, 2018 Assessment & Plan (1) Sepsis: Sepsis 2/2 likely UTI: hx of stage 4 prostate adenocarcinoma with chronic vega due to urinary retention No fever since 12/16 at 3am continue Daptomycin IV repeat blood cultures drawn on 12/13, no growth echo shows no vegetations checking RUQ US to look for cholecystitis - no inflammation seen blood and urine culture with no growth this admission, drawn on 12/10 CTA chest on 12/14, no PE as cause of fever and tachycardia asked RN to change out vega on 12/15 C diff gene is positive but toxin negative -Abd/pelvis CT: no acute abd, stable chronic changes -CXR negative no fever is an improvement, plus he is eating better, better spirits still concerned about ESR being > 90 patient was adequately treated for UTI based on cultures for several days and was still getting fevers Concern for possible vasculitis given ongoing fevers despite abx use and rheum c/s was placed. Rheum does not come to the hospital. Will hold on this for now given no fever in 48 hours appears that he had a work up in recent past, MELANIE was negative Tachycardia: sinus tach due to sepsis and fevers rates in 100-110 range, stable no PE, ruled out on 12/14 added Diltiazem on 12/15 to the metoprolol he takes chronically HR improved would continue the Diltiazem on discharge HTN/HLD -Continue metoprolol 100mg BID, continue Diltiazem 30mg TID - was on Hydralazine prior to admission drug induced fever? SLE? unlikely but active infection seems to have been ruled out DM2 with neuropathy -Diet controlled -SSI and BSG checks per unit protocol - monitor for hypoglycemia, no episodes SONY in the setting of CKD3 -BUN/Cr 34/2.09 possibly somewhat hemoconcentrated; baseline Cr 1.3 -SONY resolved, Cr is 0.9, stop fluids since PO intake improved vega to follow UO, adequate thus far Hypokalemia: K stable at 4.3 Prostate Adenocarcinoma Stage 4 -Continue Lupron - has vega in place, change on discharge - PSA low at 0.13 BPH -Continue Tamsulosin vega changed on 12/15 Anemia: hx of GI bleed in 02/2018 and likely component of chronic disease given CKD Hgb 12.2 (likely hemoconcentrated in the setting of dehydration), baseline around 9 Hb low but stable no signs of bleeding, will monitor Mild hypercalcemia -Ca 10.5 likely hemoconcentrated, given dehydration on admission. Improved on 12/11 -Received 3L IVFs and on maintenance IVFs -Monitor BMP DVT prop: Lovenox 30mg daily Code: DNR/DNI Disposition: Pt could likely go on Wednesday as long as he remains fever free discuss with Dr. Alarcon about outpatient antibiotics, currently on Daptomycin (2) Prostate cancer: (3) Diabetes: (4) HTN (hypertension): (5) Anemia: (6) BPH (benign prostatic hyperplasia): (7) CKD (chronic kidney disease): (8) SONY (acute kidney injury): (9) Hypokalemia: Subjective Pt states he feels "groggy" still, but denies other issues. Has not felt febrile. Pt denies fever, SOB, chest pain, abd pain, n/v/c/d, LE pain or swelling. Tolerating PO without issue. No pain. Review of Systems Review of Systems: Pertinent positives and negatives reviewed in HPI--all others negative Physical Exam Constitutional: WD/WN, vitals as above Eyes: normal visual escalona by confrontation and + anicteric sclerae Neck: normal visual inspection and trachea midline Respiratory: normal respiratory effort, lungs clear to auscultation Cardiovascular: Rate/Rhythm: regular rate and regular rhythm Gastrointestinal (Abdomen): Inspection/Auscultation: abdomen not distended Percussion/Palpation: abdomen soft; abdomen nontender Musculoskeletal: Head/Neck/Chest: normocephalic and head atraumatic negative for edema, peripheral pulses intact Skin: no rashes, warm and dry Neurologic: awake; not confused Speech / Cognition: normal speech Psychiatric: A+Ox3, euthymic affect Results & Data Vital Signs (Past 12 Hours) Vital Signs Temp Pulse Resp BP Pulse Ox 12/18/18 07:19 37.2 C 101 H 16 151/80 H 97 (1) Sepsis Sepsis type: sepsis due to unspecified organism Qualified Code(s): A41.9 - Sepsis, unspecified organism
--- NOTE | 2018-12-18 21:44 | Infectious Disease Progress Nt ---
Date of Service December 18, 2018 Assessment & Plan (1) Sepsis: 73-year-old male with metastatic prostate cancer admitted with clinical picture of sepsis from presumed urinary tract infection with persistent fever , possibly drug fever as now afebrile on daptomycin. Will need minimum of 2 weeks of IV antibiotics. Will follow. (2) Fever: Subjective Is here to follow-up for staph aureus sepsis and persistent fever. He is now afebrile for 48 hours on daptomycin. Offers no new complaints. Follow-up blood cultures remain negative. Review of Systems Review of Systems: All systems reviewed & are unremarkable except as noted in HPI & below Physical Exam Constitutional: WD/WN, vitals as above + ill appearing and comfortable; no acute distress Eyes: PERRL, conjunctivae normal, anicteric sclerae ENMT: external ear and nose normal, oropharynx normal Neck: trachea midline, no thyromegaly neck nontender Respiratory: normal respiratory effort, lungs clear to auscultation normal percussion; no respiratory distress Cardiovascular: Rate/Rhythm: regular rate and regular rhythm Heart Sounds: normal S1 and normal S2; no gallop, no murmur and no cardiac rub Gastrointestinal (Abdomen): normal bowel sounds, soft, nontender, no hepa tosplenomegaly Musculoskeletal: no cyanosis or clubbing, extremities motor strength 5/5 Skin: no rashes, warm and dry no lesions Neurologic: moves all extremities and awake; no focal motor deficits Motor/Sensory: no sensory deficit Psychiatric: A+Ox3, euthymic affect Lymphatic: no cervical or axillary lymphadenopathy no inguinal lymphadenopathy Results & Data Vital Signs (Past 12 Hours) Vital Signs Temp Pulse Resp BP Pulse Ox 12/18/18 15:53 36.7 C 97 H 16 133/81 97 Laboratory Results Short CBC 12/18/18 Range/Units 05:23 WBC 6.44 (4.8-10.8) K/uL Hgb 8.3 L (14.0-18.0) g/dL Hct 24.8 L (42-52) % Plt Count 431 H (130-400) K/uL BMP 12/18/18 05:23 Sodium 133 L Potassium 4.3 Chloride 105 Carbon Dioxide 23 BUN 7 Creatinine 0.99 Glucose 76 Calcium 8.7 Diagnostic Findings Microbiology 12/15/18 22:45 Urine,Indwelling Cath Urine Culture - Final No growth - less than 1,000 colonies/mL. 12/10/18 19:10 Blood Blood Culture - Final No growth 12/10/18 18:52 Blood Blood Culture - Final No growth 12/13/18 08:46 Blood Blood Culture - Preliminary No growth to date. 12/13/18 08:46 Blood Blood Culture - Preliminary No growth to date. 12/10/18 22:14 Urine,Clean Catch Urine Culture - Final No growth - less than 1,000 colonies/mL. (1) Fever Fever type: unspecified Qualified Code(s): R50.9 - Fever, unspecified (2) Sepsis Sepsis type: sepsis due to unspecified organism Qualified Code(s): A41.9 - Sepsis, unspecified organism
[2018-12-19] MEDS: ACETAMINOPHEN 500 MG TAB PO PRN (03:04)
[2018-12-19 07:10] VITALS: TEMP 98.1
[2018-12-19] MEDS: METOPROLOL SUCC 50MG EXT REL TAB PO SCH (08:59)
[2018-12-19] MEDS: GABAPENTIN 300 MG CAP PO SCH ×2 (08:59→13:52)
[2018-12-19] MEDS: TAMSULOSIN HCL 0.4 MG CAP PO SCH (08:59)
[2018-12-19] MEDS: dilTIAZem HCL 30 MG TAB PO SCH ×2 (08:59→13:51)
[2018-12-19] MEDS ORDERED: PHENAZOPYRIDINE HCL 200 MG TAB PO PRN (10:17)
--- NOTE | 2018-12-19 11:10 | Discharge Summary ---
Date of Service December 19, 2018 Admission HPI Per Admitting Provider 73yoM with hx of Stage IV prostate adenocarcinoma (s/p hormone and radiation therapy comp 08/12/18) with indwelling cath for urinary retention, DM2, neuropathy, HTN, HLD, CKD3, thrombocytopenia, anemia, chronic L hip pain 2/2 severe OA, Hep A, hx of L heel osteomyelitis in 2018, and BPH presents with concern for worsening UTI symptoms from [facility]. Pt was being treated with Bactrim for UTI however was not doing well and appeared dehydrated due to decreased PO intake. Patient reports fever, chills, headache, decreased appetite, suprapubic abdominal pain, sob, chest pain and chronic L leg pain. Denies any dizziness, n/v, constipation. ED course: Concern for sepsis 2/2 UTI. pt was found to febrile to 37.9, tachypneic RR 28 sating well on RA, tachycardic to 157 (initially EKG concerning for SVT but converted to sinus tach after 1L IVF). WBC was 20.3. POC lactate is pending. UCx on 11/29 grew Staph MRSA and enterococcus faecalis. Pt received 3L IVF, adenosine 6mg x 1, cefepime, and 1g tylenol. Due to poor IV access central line was also placed. PMHx as above Social Hx: Does not currently smoke or drink Principal Diagnosis Pt had pain in his penis this AM. Trial of pyridium is pending. Nursing states pt's urine is clear. No signs of bleeding or trauma. Pt feels better otherwise. Tolerating PO without issue. Pt denies fever, SOB, chest pain, abd pain, n/v, LE pain or swelling. He has been having loose stools. Discharge Exam Constitutional WD/WN, vitals as above Eyes normal visual escalona by confrontation and + anicteric sclerae Neck normal visual inspection and trachea midline Respiratory normal respiratory effort, lungs clear to auscultation Cardiovascular Rate/Rhythm: regular rate and regular rhythm Gastrointestinal (Abdomen) Inspection/Auscultation: abdomen not distended Percussion/Palpation: abdomen soft; abdomen nontender Musculoskeletal Head/Neck/Chest: normocephalic and head atraumatic Skin no rashes, warm and dry Neurologic awake; not confused Speech / Cognition: normal speech Psychiatric A+Ox3, euthymic affect Discharge Data Allergies Allergy/AdvReac Type Severity Reaction Status Date / Time No Known Allergies Allergy Verified 12/10/18 20:49 Consultations 12/10/18 20:39 ED Decision to Admit Stat 12/12/18 22:13 Consult Urology Routine 12/13/18 08:24 Consult Infectious Diseases Routine 12/18/18 01:47 Consult Rheumatology Routine Ordered Studies 12/10/18 20:00 CT abd pelvis wo con Stat 12/13/18 11:04 US abdomen limited Routine 12/14/18 10:40 CT angio chest PE protocol Urgent Hospital Course (1) Sepsis: Sepsis 2/2 likely UTI: hx of stage 4 prostate adenocarcinoma with chronic vega due to urinary retention No fever since 12/16 at 3am continue Daptomycin IV for a total of 14 days, will finish course at [facility] PICC placed prior to d/c on 12/19 repeat blood cultures drawn on 12/13, no growth echo shows no vegetations checking RUQ US to look for cholecystitis - no inflammation seen blood and urine culture with no growth this admission, drawn on 12/10 CTA chest on 12/14, no PE as cause of fever and tachycardia asked RN to change out vega on 12/15 C diff gene is positive but toxin negative -Abd/pelvis CT: no acute abd, stable chronic changes -CXR negative no fever is an improvement, plus he is eating better, better spirits still concerned about ESR being > 90 patient was adequately treated for UTI based on cultures for several days and was still getting fevers Concern for possible vasculitis given ongoing fevers despite abx use and rheum c/s was placed, however before situation was discussed with rheum, it was noted that pt was afebrile for over 24 hours. Given pt has now been afebrile for several days, will hold on rheum c/s appears that he had a work up in recent past, MELANIE was negative Loose stools on abx: add probiotic Tachycardia: sinus tach due to sepsis and fevers rates in 100-110 range, stable no PE, ruled out on 12/14 added Diltiazem on 12/15 to the metoprolol he takes chronically HR improved would continue the Diltiazem on discharge HTN/HLD -Continue metoprolol 100mg BID, continue Diltiazem 30mg TID - was on Hydralazine prior to admission drug induced fever? SLE? unlikely but active infection seems to have been ruled out DM2 with neuropathy -Diet controlled -SSI and BSG checks per unit protocol - monitor for hypoglycemia, no episodes SONY in the setting of CKD3 -BUN/Cr 34/2.09 possibly somewhat hemoconcentrated; baseline Cr 1.3 -SONY resolved, Cr is 0.9, stop fluids since PO intake improved vega to follow UO, adequate thus far Hypokalemia: K stable at 4.3 Prostate Adenocarcinoma Stage 4 -Continue Lupron - has vega in place, change on discharge - PSA low at 0.13 BPH -Continue Tamsulosin vega changed on 12/15 Anemia: hx of GI bleed in 02/2018 and likely component of chronic disease given CKD Hgb 12.2 (likely hemoconcentrated in the setting of dehydration), baseline around 9 Hb low but stable no signs of bleeding, will monitor Mild hypercalcemia -Ca 10.5 likely hemoconcentrated, given dehydration on admission. Improved on 12/11 -Received 3L IVFs and on maintenance IVFs -Monitor BMP Penile pain: likely irritation from chronic vega Pt was advised for trial of voiding per urology, however pt declined Pyridium for pain PRN Follow up with urology as outpt Cath to be changed [id number] (2) Prostate cancer: (3) Diabetes: (4) HTN (hypertension): (5) Anemia: (6) BPH (benign prostatic hyperplasia): (7) CKD (chronic kidney disease): (8) SONY (acute kidney injury): (9) Hypokalemia: Total Time Total Time Spent Total Time Spent (In Minutes): >30 minutes Discharge Plan Discharge Items [facility] Reason For Visit: SEPSIS 2/2 UTI Discharge Diagnosis: Sepsis/UTI Discharge Goals: Decrease discomfort, Improve disease control and Increase independence Activity: Resume your previous activity Non-emergency contact: Primary Care Provider and Urologist Call non-emergency contact if: you have any medication questions, your symptoms worsen and your pain is not controlled Follow-up/Referrals: Jamarcus UMRPHY [Primary Care Provider] - Diet: Carb Consistent or DM2 Addtl Provider Instructions: Pt will complete a total of 14 days of daptomycin. This was started on 12/13/18. Pt should have another 8 days of tx. Pt declined a trial of void as recommended by urology. He will need to follow up with urology next week for further assessment. Catheter should be changed every 4 weeks. Prescriptions: New metoprolol succinate 50 mg Tablet Extended Release 24 Hr 100 mg PO Q12H Qty: 60 RF: 0 phenazopyridine [Pyridium] 200 mg Tablet 200 mg PO TID PRN (Reason: penile pain) 14 Days Qty: 30 RF: 0 tamsulosin 0.4 mg Capsule 0.4 mg PO BID Qty: 60 RF: 0 gabapentin 300 mg Capsule 300 mg PO TID Qty: 90 RF: 0 diltiazem HCl 30 mg Tablet 30 mg PO TID Qty: 90 RF: 0 daptomycin 500 mg recon soln 425 mg IV DAILY 8 Days RF: 0 Lactobacillus acidophilus 1 billion cell capsule 100 mg PO TID Qty: 1 RF: 0 Continued metoprolol succinate 100 mg Tablet Extended Release 24 Hr 100 mg PO Q12 RF: 0 tamsulosin [Flomax] 0.4 mg capsule 0.4 mg PO BID RF: 0 acetaminophen [Tylenol Extra Strength] 500 mg Tablet 1,000 mg PO TID PRN (Reason: Pain) RF: 0 Lupron Depot (6 Month) 45 mg Syringe Kit 45 mg IM Q6M RF: 0 Discontinued hydralazine 25 mg Tablet 25 mg PO TID RF: 0 Stand-Alone Forms: [facility] Discharge Orders: Discharge Order (Routine); Ordered 12/19/18 Ordered By: Janette Luevano Admission Data Admit Date/Time: 12/10/18 22:05 Attending Provider: Janette Luevano Admit Provider: Vladimir Nicole Primary Care Provider: Jamarcus MURPHY Other Providers: Vladimir Nicole ; Quinton Osorio ; Miesha Mccall ; Murray Guillen ; Julian Funez Service: Medical Other Interventions: Discharge Summary Assessment (RN) Last Done: 12/19/18 10:56 Pending Studies at Discharge: No DC Date/Time DO NOT enter until pt leaves facility: 12/19/18 16:22
[2018-12-19] MEDS: DAPTOmycin 425 MG in SYRINGE 0 ML IV SCH (11:43)
[2018-12-19 12:25] VITALS: PULSE 93; O2SAT 97
[2018-12-19 12:26] VITALS: BP 138/77
== END 2018-12-19 16:22 | DRG 872 ==
LOC: ED 18:32 → 2E 22:05 → SUATTDRO 22:05 → 2E 22:46 → 4W 12-16 14:44

== ENCOUNTER 2019-01-12 11:03 | Inpatient (IN) ==
--- NOTE | 2019-01-12 12:07 | Emergency Department Note ---
Entered by Carina Fernandez acting as a scribe for Pedro Hayward DO History of Present Illness General Chief complaint: GI Bleed Stated complaint: rectal bleed Time Seen by Provider: 01/12/19 11:40 Source: patient History of Present Illness Provider complaint: rectal bleeding Location: buttocks (rectum ) Pain Consistency: + intermittent Quality: + other (bleeding) Associated symptoms: + other (trouble moving bowels ) Treatments prior to arrival: none The patient is a 74 year old male who presents to the Emergency Department with complaints of intermittent rectal bleeding beginning this morning. He also reports having difficulty moving his bowels. He states that he does not get up to use the toilet. Home Medications Home Medications Medication Instructions Recorded Confirmed Type metoprolol succinate 100 mg PO BID 04/22/18 01/12/19 History Lupron Depot (6 Month) 45 mg IM Q6M 12/10/18 01/12/19 History acetaminophen [Tylenol Extra 1,000 mg PO TID PRN 12/10/18 01/12/19 History Strength] gabapentin 300 mg PO TID #90 cap 12/19/18 01/12/19 Rx tamsulosin 0.4 mg PO BID #60 cap 12/19/18 01/12/19 Rx aspirin 81 mg PO DAILY 01/12/19 01/12/19 History bicalutamide 50 mg PO DAILY 01/12/19 01/12/19 History diltiazem HCl 60 mg PO BID 01/12/19 01/12/19 History lovastatin 20 mg PO DAILY 01/12/19 01/12/19 History nortriptyline 50 mg PO BID 01/12/19 01/12/19 History nutritional supplements [Resource 1 ea PO TID 01/12/19 01/12/19 History 2.0] pantoprazole 40 mg PO BID 01/12/19 01/12/19 History polyethylene glycol 3350 [Gavilax] 1 g PO DAILY 01/12/19 01/12/19 History sodium bicarbonate 650 mg PO BID 01/12/19 01/12/19 History Allergies Allergy/AdvReac Type Severity Reaction Status Date / Time No Known Allergies Allergy Verified 01/12/19 11:39 Past Med/Surg History Medical History Chronic left hip pain (Acute) Indwelling Hamm catheter present (Acute) Prostate cancer (Acute) Urinary retention (Acute) Allergic rhinitis (Chronic) Diabetes mellitus (Chronic) Diabetic neuropathy (Chronic) Diverticulosis (Chronic) H/O type A viral hepatitis (Chronic) Hyperlipidemia (Chronic) Hypertension (Chronic) Iron deficiency anemia (Chronic) Liver disease (Chronic) Weight loss (Chronic) H/O osteomyelitis (Resolved) Family History Sister , Unknown age at ;Kidney failure;Cancer in "her leg" No problems noted. Father , unknown age of Prostate Cancer No problems noted. Mother , unknown age from fall & injuring head No problems noted. Son No problems noted. Sister No problems noted. Sister No problems noted. Social History Preferred Language: Italian Communication Ability: Effective Visual Impairment: No Limitations Hearing Ability: Normal Beliefs That Will Affect Care: None Current Living Situation: Other Current Living Situation Comment: [facility]. Feels Safe at Home: Yes Smoking Status: Former smoker Tobacco Type: cigarettes Cigarettes Per Day: Less than 1/2 PPD when he smoked Second Hand Exposure: No Hx Alcohol Use: No Hx Substance Use: No during the past year weight has: increased > 10 lbs Review of Systems See HPI for pertinent positives & negatives. and A total of 10 systems reviewed and were otherwise negative Physical Exam Vital Signs Vital Signs - 24 hr 01/12/19 11:10 01/12/19 13:00 01/12/19 13:30 Temperature 37.6 C H Temperature Source Oral Sepsis Recent Fever Within 48 Hours No Sepsis New/Unexplained Change in Mental Status No Sepsis Action Taken by Nursing No Action Required Pulse Rate 100 H Pulse Rate [Right Finger] 83 82 Respiratory Rate 20 20 20 Blood Pressure 131/72 Blood Pressure [Right Arm] 139/73 147/73 H Blood Pressure Mean 91 Blood Pressure Mean [Right Arm] 95 97 Pulse Oximetry 98 98 98 Oxygen Delivery Method Room Air Room Air Room Air CONSTITUTIONAL/VITAL SIGNS: Reviewed / noted above. GENERAL: Non-toxic in appearance. Chronically ill appearing. INTEGUMENTARY: Warm, dry, and [place]. HEAD: Normocephalic. EYES: without scleral icterus or trauma. ENT/OROPHARYNX: clear and moist. LYMPHADENOPATHY/NECK: Is supple without lymphadenopathy or meningismus. RESPIRATORY: Lungs clear and equal. CARDIOVASCULAR: Regular rate and rhythm. GI/ABDOMEN: Soft and nontender. No organomegaly or pulsatile mass. No rebound or guarding. Normal bowel sounds. EXTREMITIES: Warm and well perfused. RECTAL: Gross dark blood on exam. No obvious rectal injury. BACK: No CVA tenderness. NEUROLOGICAL: Intact without focal deficits. PSYCHIATRIC: normal affect. MUSCULOSKELETAL: Normally developed with good muscle tone. Course 1147: The patient was evaluated in room B5. A history and physical were perform ed. 1346: I discussed the patient's case with Dr. Jus Thomas who will evaluate the patient for further management. 1350: I updated the patient who verbalized agreement and understanding of the treatment plan Consultations Consultation #1: Dr. Jus Thomas Time: 13:46 Administered Medications Discontinued Medications Sodium Chloride (Nss) 500 mls @ 999 mls/hr IV .Q31M NEIL Stop: 01/12/19 12:45 Last Infusion: 01/12/19 13:46 Dose: 0 mls/hr Documented by: [id number] Admin: 01/12/19 13:14 Dose: 999 mls/hr Documented by: [id number] Medical Decision Making Differential Diagnosis Differential diagnosis: Etiologies such as esophagitis, variceal bleed, Boerhaaves, Terry-Callahan tear, gastritis, peptic ulcer disease, AVM, inflammatory bowel disease, ischemia, diverticulosis, colitis, malignancy, coagulopathy, thrombocytopenia, fissure, hemorrhoid, epistaxis , as well as others were entertained. Medical Records Attestation: I reviewed the patient's medical records. Home Medications Current Medication List: was personally reviewed by me Laboratory Data Attestation: I reviewed the patient's lab results. Result diagrams: 01/12/19 12:57 01/12/19 12:57 Lab Results 01/12/19 01/12/19 01/12/19 Range/Units 12:55 12:57 12:57 WBC 8.75 (4.8-10.8) K/uL RBC 3.19 L (4.7-6.1) M/uL Hgb 8.2 L (14.0-18.0) g/dL Hct 25.0 L (42-52) % MCV 78.4 L (80-100) fL MCH 25.7 (25-34) pg MCHC 32.8 (32-36) g/dL RDW Std Deviation 50.7 H (36.4-46.3) fL RDW Coeff of Meaghan 17.8 H (11.5-14.5) % Plt Count 604 H (130-400) K/uL MPV 8.7 (7.4-10.4) fL Immature Gran % (Auto) 0.5 % Neut % (Auto) 65.6 % Lymph % (Auto) 17.8 % Towns % (Auto) 13.3 % Eos % (Auto) 2.7 % Baso % (Auto) 0.1 % Immature Gran # (Auto) 0.04 H (0.00-0.02) K/uL Neut # (Auto) 5.74 (1.4-6.5) K/uL Lymph # (Auto) 1.56 (1.2-3.4) K/uL Towns # (Auto) 1.16 H (0.11-0.59) K/uL Eos # (Auto) 0.24 (0-0.5) K/uL Baso # (Auto) 0.01 (0-0.2) K/uL PT 10.5 (9.0-12.0) Seconds INR 1.0 (0.9-1.1) APTT 24.3 (21.0-31.0) Seconds PTT Ratio 0.9 Sodium (136-145) mmol/L Potassium (3.5-5.1) mmol/L Chloride (98-107) mmol/L Carbon Dioxide (21-32) mmol/L Anion Gap (3-11) BUN (7-18) mg/dl Creatinine (0.6-1.4) mg/dl Est Cr Clr Drug Dosing ml/min Est GFR ( Amer) Est GFR (Non-Af Amer) BUN/Creatinine Ratio (10-20) Glucose (70-99) mg/dl Calcium (8.5-10.1) mg/dl Total Bilirubin (0.2-1) mg/dl AST (15-37) U/L ALT (12-78) U/L Alkaline Phosphatase (45-117) U/L Total Protein (6.4-8.2) gm/dl Albumin (3.4-5.0) gm/dl Globulin (2.5-4.0) gm/dl Albumin/Globulin Ratio (0.9-2) Blood Type Cancelled Antibody Screen Cancelled 01/12/19 Range/Units 12:57 WBC (4.8-10.8) K/uL RBC (4.7-6.1) M/uL Hgb (14.0-18.0) g/dL Hct (42-52) % MCV (80-100) fL MCH (25-34) pg MCHC (32-36) g/dL RDW Std Deviation (36.4-46.3) fL RDW Coeff of Meaghan (11.5-14.5) % Plt Count (130-400) K/uL MPV (7.4-10.4) fL Immature Gran % (Auto) % Neut % (Auto) % Lymph % (Auto) % Towns % (Auto) % Eos % (Auto) % Baso % (Auto) % Immature Gran # (Auto) (0.00-0.02) K/uL Neut # (Auto) (1.4-6.5) K/uL Lymph # (Auto) (1.2-3.4) K/uL Towns # (Auto) (0.11-0.59) K/uL Eos # (Auto) (0-0.5) K/uL Baso # (Auto) (0-0.2) K/uL PT (9.0-12.0) Seconds INR (0.9-1.1) APTT (21.0-31.0) Seconds PTT Ratio Sodium 140 (136-145) mmol/L Potassium 4.2 (3.5-5.1) mmol/L Chloride 105 (98-107) mmol/L Carbon Dioxide 28 (21-32) mmol/L Anion Gap 7.0 (3-11) BUN 14 (7-18) mg/dl Creatinine 1.38 (0.6-1.4) mg/dl Est Cr Clr Drug Dosing 42.4 ml/min Est GFR ( Amer) 57.2 Est GFR (Non-Af Amer) 49.3 BUN/Creatinine Ratio 9.8 L (10-20) Glucose 102 H (70-99) mg/dl Calcium 9.9 (8.5-10.1) mg/dl Total Bilirubin 0.2 (0.2-1) mg/dl AST 16 (15-37) U/L ALT 13 (12-78) U/L Alkaline Phosphatase 115 (45-117) U/L Total Protein 8.0 (6.4-8.2) gm/dl Albumin 2.9 L (3.4-5.0) gm/dl Globulin 5.1 H (2.5-4.0) gm/dl Albumin/Globulin Ratio 0.6 L (0.9-2) Blood Type Antibody Screen ECG Data Attestation: I personally reviewed and interpreted this ECG as follows: Indication: other (GI bleed) Rate (beats per minute): 83 Rhythm: normal sinus Findings: no PAC, no PVC, no ST elevation and no ectopy Blood Pressure Blood Pressure Findings: Elevated blood pressure Blood Pressure Disposition: further management by hospitalist KATALINA Newsome This is a 74-year-old male who presents to the ED from the half-way with a chief complaint of rectal bleeding. The patient is bedbound. He was being cleaned this morning and there was some blood noticed in the rectal area with clots. He was sent here for evaluation. Patient denies any abdominal pain and has no additional complaints. He does state that he was straining this morning to have a bowel movement. His rectal exam reveals gross dark blood on exam with some clots but no active bleeding. There is no obvious rectal trauma my exam. The patient's hemoglobin today is 8.2. This is baseline for the patient for at least the past month. Chemistry panel was unremarkable. EKG showed a normal sinus rhythm at a rate of 83. Because of the gross rectal bleeding and his baseline anemia, patient will be seen by the hospitalist for further inpatient evaluation. Impression & Plan Lower GI bleed The scribe's documentation has been prepared under my direction and personally reviewed by me in its entirety. I confirm that the note above accurately reflects all work, treatment, procedures, and medical decision making performed by me.
[2019-01-12] MEDS ORDERED: SODIUM CHLORIDE 0.9% 500 ML IV SCH (12:15)
[2019-01-12 13:06] LABS: Basophils # (auto) 0.01 K/uL (0-0.2); Basophils % (auto) 0.1 %; Eosinophils # (auto) 0.24 K/uL (0-0.5); Eosinophils % (auto) 2.7 %; Hemoglobin 8.2 g/dL (14.0-18.0); Immature Granulocytes # (auto) 0.04 K/uL (0.00-0.02); Immature Granulocytes % (auto) 0.5 %; Lymphocytes # (auto) 1.56 K/uL (1.2-3.4); Lymphocytes % (auto) 17.8 %; Mean Corpuscular Hgb Conc 32.8 g/dL (32-36); Mean Corpuscular Volume 78.4 fL (80-100); Mean Platelet Volume 8.7 fL (7.4-10.4); Monocytes # (auto) 1.16 K/uL (0.11-0.59); Monocytes % (auto) 13.3 %; Neutrophils # (auto) 5.74 K/uL (1.4-6.5); Neutrophils % (auto) 65.6 %; Platelet Count 604 K/uL (130-400); RDW Coefficient of Variation 17.8 % (11.5-14.5); RDW Standard Deviation 50.7 fL (36.4-46.3); Red Blood Count 3.19 M/uL (4.7-6.1); White Blood Count 8.75 K/uL (4.8-10.8)
[2019-01-12 13:17] LABS: Partial Thromboplastin Ratio 0.9; Partial Thromboplastin Time 24.3 Seconds (21.0-31.0); Prothrombin Time 10.5 Seconds (9.0-12.0)
[2019-01-12 13:23] LABS: Albumin Level 2.9 gm/dl (3.4-5.0); BUN Creatinine Ratio 9.8 (10-20); Calcium 9.9 mg/dl (8.5-10.1); Creatinine Clr Calc Pharmacy 42.4 ml/min; Est GFR (African American) 57.2; Est GFR (Non-African American) 49.3; Potassium 4.2 mmol/L (3.5-5.1)
[2019-01-12 13:25] LABS: Albumin Globulin Ratio 0.6 (0.9-2); Bilirubin,Total 0.2 mg/dl (0.2-1); Globulin 5.1 gm/dl (2.5-4.0)
--- NOTE | 2019-01-12 15:30 | History & Physical Report ---
Date of Service January 12, 2019 Assessment & Plan (1) Lower GI bleed: Clear liquid diet for now. Serial H&H. Transfuse as necessary. Hold aspirin. Consult gastroenterology Present on Admission?: Yes (2) SONY (acute kidney injury): Mild creatinine elevation to 1.3. Administer IV fluids. Monitor urine output. Serial lab studies Present on Admission?: Yes (3) Presence of indwelling Hamm catheter: Chronic (4) Diabetes: Sliding scale insulin coverage while on clear liquid diet (5) HTN (hypertension): Treated with diltiazem, metoprolol (6) Prostate cancer: Currently receiving Lupron injections monthly History of Present Illness Chief Complaint: Bloody stool Primary Care Provider: KATHERINE [facility] 74-year-old black male from the local custodial who was found to have bloody stool in his depends today. He did not notice any abdominal pain or symptoms and was unaware that he had lower GI bleeding. He was sent to the ED for evaluation. Hemoglobin is 8.2 which appears to be near his baseline. This probably represents a diverticular bleed. He is hemodynamically stable. He has given consent for blood transfusion if necessary. He will be kept on a clear liquid diet and gastroenterology will be consulted. H&H will be monitored every 6 hours. Aspirin will be placed on hold Allergies Allergy/AdvReac Type Severity Reaction Status Date / Time No Known Allergies Allergy Verified 01/12/19 11:39 Home Medications Home Medications Medication Instructions Recorded Confirmed Type metoprolol succinate 100 mg PO BID 04/22/18 01/12/19 History Lupron Depot (6 Month) 45 mg IM Q6M 12/10/18 01/12/19 History acetaminophen [Tylenol Extra 1,000 mg PO TID PRN 12/10/18 01/12/19 History Strength] gabapentin 300 mg PO TID #90 cap 12/19/18 01/12/19 Rx tamsulosin 0.4 mg PO BID #60 cap 12/19/18 01/12/19 Rx aspirin 81 mg PO DAILY 01/12/19 01/12/19 History bicalutamide 50 mg PO DAILY 01/12/19 01/12/19 History diltiazem HCl 60 mg PO BID 01/12/19 01/12/19 History lovastatin 20 mg PO DAILY 01/12/19 01/12/19 History nortriptyline 50 mg PO BID 01/12/19 01/12/19 History nutritional supplements [Resource 1 ea PO TID 01/12/19 01/12/19 History 2.0] pantoprazole 40 mg PO BID 01/12/19 01/12/19 History polyethylene glycol 3350 [Gavilax] 1 g PO DAILY 01/12/19 01/12/19 History sodium bicarbonate 650 mg PO BID 01/12/19 01/12/19 History Past Med/Surg History Medical History Chronic left hip pain (Acute) Indwelling Hamm catheter present (Acute) Prostate cancer (Acute) Urinary retention (Acute) Allergic rhinitis (Chronic) Diabetes mellitus (Chronic) Diabetic neuropathy (Chronic) Diverticulosis (Chronic) H/O type A viral hepatitis (Chronic) Hyperlipidemia (Chronic) Hypertension (Chronic) Iron deficiency anemia (Chronic) Liver disease (Chronic) Weight loss (Chronic) H/O osteomyelitis (Resolved) Family History Sister , Unknown age at ;Kidney failure;Cancer in "her leg" No problems noted. Father , unknown age of Prostate Cancer No problems noted. Mother , unknown age from fall & injuring head No problems noted. Son No problems noted. Sister No problems noted. Sister No problems noted. Social History Preferred Language: Japanese Communication Ability: Effective Visual Impairment: No Limitations Hearing Ability: Normal Beliefs That Will Affect Care: None Current Living Situation: Other Current Living Situation Comment: [facility]. Feels Safe at Home: Yes Smoking Status: Former smoker Tobacco Type: cigarettes Cigarettes Per Day: Less than 1/2 PPD when he smoked Second Hand Exposure: No Hx Alcohol Use: No Hx Substance Use: No during the past year weight has: increased > 10 lbs Review of Systems Review of Systems: All systems reviewed & are unremarkable except as noted in HPI & below Gastrointestinal: + blood in stools; no abdominal pain, no hematemesis and no melena Physical Exam Constitutional: WD/WN, vitals as above Eyes: PERRL, conjunctivae normal, anicteric sclerae ENMT: external ear and nose normal, oropharynx normal Neck: trachea midline, no thyromegaly Respiratory: normal respiratory effort, lungs clear to auscultation Cardiovascular: Rate/Rhythm: regular rate and regular rhythm Heart Sounds: normal S1, normal S2 and + murmur (Grade 1/6 systolic murmur at the apex) Gastrointestinal (Abdomen): normal bowel sounds, soft, nontender, no hepatosplenomegaly Musculoskeletal: Extremities: extremities normal to inspection Skin: no rashes, warm and dry Neurologic: CN's II-XI intact bilaterally and moves all extremities; no focal motor deficits Results & Data Vital Signs (Past 12 Hours) Vital Signs Temp Pulse Pulse Resp BP BP Pulse Ox 01/12/19 15:23 84 18 147/76 H 98 01/12/19 13:30 82 20 147/73 H 98 01/12/19 13:00 83 20 139/73 98 01/12/19 11:10 37.6 C H 100 H 20 131/72 98 Laboratory Results 01/12/19 12:57 01/12/19 12:57
[2019-01-12] MEDS ORDERED: ALUMINUM/MAGNESIUM SUSP 30 ML UDC PO PRN (17:14)
[2019-01-12] MEDS ORDERED: ONDANSETRON INJ 2 MG/ML 2 ML VIAL IV PRN (17:14)
[2019-01-12] MEDS ORDERED: CARBOHYDRATES FOR HYPOGLYCEMIA PO PRN (17:30)
[2019-01-12] MEDS ORDERED: GLUCOSE 10 TABS/TUBE PO PRN (17:30)
[2019-01-12] MEDS ORDERED: GLUCOSE 40% GEL 15 GM TUBE PO PRN (17:30)
[2019-01-12] MEDS ORDERED: DEXTROSE 50% 50 ML SYRINGE IV PRN (17:30)
[2019-01-12] MEDS ORDERED: GLUCAGON FOR INJ 1 MG VIAL IM PRN (17:30)
[2019-01-12] MEDS: INSULIN ASPART 100 UNITS/ML 3 ML PEN SC SCH ×2 (17:47→21:29)
[2019-01-12] MEDS: SODIUM CHLORIDE 0.9% 1000ML 1,000 ML IV SCH (17:55)
[2019-01-12 18:00] LABS: Hemoglobin 8.5 g/dL (14.0-18.0); Reticulocyte % 2.4 % (0.5-2.0); Reticulocytes # 0.08 10^6/uL (0.02-0.10)
[2019-01-12] MEDS: GABAPENTIN 300 MG CAP PO SCH (21:26)
[2019-01-12] MEDS: METOPROLOL SUCC 50MG EXT REL TAB PO SCH (21:26)
[2019-01-12] MEDS: TAMSULOSIN HCL 0.4 MG CAP PO SCH (21:27)
[2019-01-12] MEDS: PANTOprazole 40 MG TAB PO SCH (21:28)
[2019-01-12] MEDS: NORTRIPTYLINE HCL 25 MG CAP PO SCH (21:28)
[2019-01-12] MEDS: SODIUM BICARBONATE 650 MG TAB PO SCH (21:28)
[2019-01-13 00:26] LABS: Hematocrit (blood only) 23.9 % (42-52); Hemoglobin 7.7 g/dL (14.0-18.0)
[2019-01-13] MEDS: SODIUM CHLORIDE 0.9% 1000ML 1,000 ML IV SCH ×2 (06:07→19:52)
[2019-01-13 07:02] LABS: Hematocrit (blood only) 26.2 % (42-52); Hemoglobin 8.4 g/dL (14.0-18.0)
--- NOTE | 2019-01-13 08:19 | Gastrointestinal Consultation ---
Date of Consultation January 13, 2019 Assessment & Plan (1) Lower GI bleed: Mr. Emmanuel is a 74 yr old male with prostate cancer, DM, diabetic neuropathy who experienced rectal bleeding, likely ischemic colits vs. diverticular bleeding. He remains hemodynamically stable and the amt of bleeding is decreasing. Because he has had a colonoscopy in the past year, colon cancer extremely unlikely and because diverticulosis was present on that scope, a diverticular bleed is likely. Plan: 1. Because his bleeding is decreasing and he remains hemodynamically stable, would avoid colonoscopy. 2. Keep on clear liquids po today. If no significant bleeding today, could increase to a soft diet by this evening. 3. Because he recently underwent colonoscopy, no need for OP f/u colonoscopy. 4. GI will watch peripherally. Please notify us if new/worrisome GI symptoms. Present on Admission?: Yes Supervising Physician Co-Signing Physician Notes I have personally seen and examined the patient with PATRIA Gómez. Her note reflects my exam and findings. I agree with her impression and plan. Most c/w bout of ischemic colitis. Slowly advance diet and follow clinically. If ischemic colitis, this should resolve with conservative management. Pascual Martinez M.D. History of Present Illness Reason for Consultation: Lower GI Bleed Requesting Physician: Dr. Varela Attending Physician: Jason Varela MD History of Present Illness Mr. 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 He was brought to [facility] yesterday for rectal bleeding. He is on daily low dose aspirin, no other platelet inhibitors/anticoagulants. On arrival, Hb was 8.3 and today is 8.4. These values are his approx baseline as well. He reports 3-5 minutes of feeling like he "really had to go to the bathroom," which may have been a fairly intense lower abdomen pain but the pt is very non specific. This occurred around the time of the initial episode of bleeding. Since then he has had several episode of loose red, BMs and a cramping lower abdomen discomfort, "like a washing machine." Nursing reports increasingly dark color to the BMs and decreasing amt and frequency, not having passed a BM yet today. BUN is normal. He previously underwent colonoscopy in [address] Morris for weight loss with findings of diverticulosis and internal hemorrhoids, though there was a poor prep. EGD with a gastric ulcer in Sep 2017 with healing on recheck EGD in January 2018. He had a recent non contrast CT on 12/12/18 without acute processes and with "adenopathy and pelvic bone sclerosis also unchanged/stable." Liver US in November with fatty infiltration, normal bile ducts. Allergies Allergy/AdvReac Type Severity Reaction Status Date / Time No Known Allergies Allergy Verified 01/12/19 11:39 Home Medications Home Medications Medication Instructions Recorded Confirmed Type metoprolol succinate 100 mg PO BID 04/22/18 01/12/19 History Lupron Depot (6 Month) 45 mg IM Q6M 12/10/18 01/12/19 History acetaminophen [Tylenol Extra 1,000 mg PO TID PRN 12/10/18 01/12/19 History Strength] gabapentin 300 mg PO TID #90 cap 12/19/18 01/12/19 Rx tamsulosin 0.4 mg PO BID #60 cap 12/19/18 01/12/19 Rx aspirin 81 mg PO DAILY 01/12/19 01/12/19 History bicalutamide 50 mg PO DAILY 01/12/19 01/12/19 History diltiazem HCl 60 mg PO BID 01/12/19 01/12/19 History lovastatin 20 mg PO DAILY 01/12/19 01/12/19 History nortriptyline 50 mg PO BID 01/12/19 01/12/19 History nutritional supplements [Resource 1 ea PO TID 01/12/19 01/12/19 History 2.0] pantoprazole 40 mg PO BID 01/12/19 01/12/19 History polyethylene glycol 3350 [Gavilax] 1 g PO DAILY 01/12/19 01/12/19 History sodium bicarbonate 650 mg PO BID 01/12/19 01/12/19 History Patient History Medical History Chronic left hip pain (Acute) Indwelling Vega catheter present (Acute) Prostate cancer (Acute) Urinary retention (Acute) Allergic rhinitis (Chronic) Diabetes mellitus (Chronic) Diabetic neuropathy (Chronic) Diverticulosis (Chronic) H/O type A viral hepatitis (Chronic) Hyperlipidemia (Chronic) Hypertension (Chronic) Iron deficiency anemia (Chronic) Liver disease (Chronic) Weight loss (Chronic) H/O osteomyelitis (Resolved) Family History Sister , Unknown age at ;Kidney failure;Cancer in "her leg" No problems noted. Father , unknown age of Prostate Cancer No problems noted. Mother , unknown age from fall & injuring head No problems noted. Son No problems noted. Sister No problems noted. Sister No problems noted. 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 Feels Safe at Home: Yes Smoking Status: Former smoker Tobacco Type: cigarettes Cigarettes Per Day: Less than 1/2 PPD when he smoked Second Hand Exposure: No Hx Alcohol Use: No Hx Substance Use: No during the past year weight has: increased > 10 lbs Review of Systems Review of Systems: ROS: Gen: Denies increasing weakness, no fevers, no weight loss, no fainting Eyes: No eye redness, or pain, no recent vision changes Resp: No SOB, no cough Cardio: No palpitations/irregular beats, no recent chest discomfort GI: per HPI, no nausea/vomiting, no upper abdomen pain : Indwelling vega cath, no blood in vega bag. Skin: No jaundice, itching or new rashes Physical Exam Constitutional: WD/WN, vitals as above + ill appearing and + thin Eyes: PERRL, conjunctivae normal, anicteric sclerae ENMT: external ear and nose normal, oropharynx normal Neck: trachea midline, no thyromegaly Respiratory: normal respiratory effort, lungs clear to auscultation Cardiovascular: RRR, no murmur, no edema Gastrointestinal (Abdomen): Inspection/Auscultation: abdomen normal to inspection Percussion/Palpation: + abdomen tender (very mild bilateral lower abdomen tenderness on palpation) and abdomen soft Skin: no rashes, warm and dry Neurologic: PERRL, EOMI, accommodation nl, no face palsy, no dysarthria Psychiatric: A+Ox3, euthymic affect Lymphatic: no cervical or axillary lymphadenopathy Results & Data Vital Signs (Past 12 Hours) Vital Signs Temp Pulse Resp BP Pulse Ox 01/13/19 07:35 37.5 C 103 H 16 161/83 H 95 01/13/19 04:00 37.3 C 104 H 15 168/88 H 98 01/12/19 23:23 37.6 C H 106 H 18 131/75 99 01/12/19 21:24 111 H 162/89 H
[2019-01-13] MEDS: SODIUM BICARBONATE 650 MG TAB PO SCH ×2 (09:05→20:31)
[2019-01-13] MEDS: INSULIN ASPART 100 UNITS/ML 3 ML PEN SC SCH ×4 (09:05→21:21)
[2019-01-13] MEDS: BICALUTAMIDE 50 MG TAB PO SCH (09:05)
[2019-01-13] MEDS: GABAPENTIN 300 MG CAP PO SCH ×3 (09:06→20:31)
[2019-01-13] MEDS: PANTOprazole 40 MG TAB PO SCH ×2 (09:06→20:31)
[2019-01-13] MEDS: METOPROLOL SUCC 50MG EXT REL TAB PO SCH ×2 (09:06→20:33)
[2019-01-13] MEDS: NORTRIPTYLINE HCL 25 MG CAP PO SCH ×2 (09:06→20:31)
[2019-01-13] MEDS: LOVASTATIN 20 MG TAB PO SCH (09:06)
[2019-01-13] MEDS: TAMSULOSIN HCL 0.4 MG CAP PO SCH ×2 (09:06→20:32)
[2019-01-13 12:23] LABS: Hematocrit (blood only) 25.7 % (42-52); Hemoglobin 8.3 g/dL (14.0-18.0)
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
[2019-01-13] MEDS: ACETAMINOPHEN 325 MG TAB PO PRN (21:22)
[2019-01-14] MEDS: METOPROLOL SUCC 50MG EXT REL TAB PO SCH ×2 (08:18→20:39)
[2019-01-14] MEDS: BICALUTAMIDE 50 MG TAB PO SCH (08:18)
[2019-01-14] MEDS: NORTRIPTYLINE HCL 25 MG CAP PO SCH ×2 (08:19→20:37)
[2019-01-14] MEDS: PANTOprazole 40 MG TAB PO SCH ×2 (08:19→20:38)
[2019-01-14] MEDS: SODIUM BICARBONATE 650 MG TAB PO SCH ×2 (08:19→20:39)
[2019-01-14] MEDS: TAMSULOSIN HCL 0.4 MG CAP PO SCH ×2 (08:20→20:36)
[2019-01-14] MEDS: GABAPENTIN 300 MG CAP PO SCH ×3 (08:20→20:36)
[2019-01-14] MEDS: LOVASTATIN 20 MG TAB PO SCH (08:21)
[2019-01-14] MEDS: SODIUM CHLORIDE 0.9% 1000ML 1,000 ML IV SCH ×2 (08:24→22:18)
[2019-01-14] MEDS: INSULIN ASPART 100 UNITS/ML 3 ML PEN SC SCH ×4 (09:17→22:11)
[2019-01-14 09:37] LABS: Basophils # (auto) 0.01 K/uL (0-0.2); Basophils % (auto) 0.1 %; Eosinophils # (auto) 0.17 K/uL (0-0.5); Eosinophils % (auto) 1.8 %; Hematocrit (blood only) 22.9 % (42-52); Hemoglobin 7.1 g/dL (14.0-18.0); Immature Granulocytes # (auto) 0.05 K/uL (0.00-0.02); Immature Granulocytes % (auto) 0.5 %; Lymphocytes # (auto) 1.21 K/uL (1.2-3.4); Lymphocytes % (auto) 13.1 %; Mean Corpuscular Volume 77.6 fL (80-100); Mean Platelet Volume 9.1 fL (7.4-10.4); Monocytes # (auto) 1.39 K/uL (0.11-0.59); Monocytes % (auto) 15.1 %; Neutrophils # (auto) 6.38 K/uL (1.4-6.5); Neutrophils % (auto) 69.4 %; Platelet Count 534 K/uL (130-400); RDW Coefficient of Variation 17.8 % (11.5-14.5); RDW Standard Deviation 51.1 fL (36.4-46.3); Red Blood Count 2.95 M/uL (4.7-6.1); White Blood Count 9.21 K/uL (4.8-10.8)
[2019-01-14 09:54] LABS: BUN Creatinine Ratio 8.8 (10-20); Calcium 9.1 mg/dl (8.5-10.1); Creatinine Clr Calc Pharmacy 46.4 ml/min; Est GFR (Non-African American) 57.8
[2019-01-14 10:13] LABS: Polychromasia 1+
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
--- NOTE | 2019-01-14 18:32 | Family Medicine Progress Note ---
Date of Service January 14, 2019 Subjective Please see separate documentation from the same date for actual clinical information. Today the EMR was changed to allow for in-EMR coding entry, and unfortunately residency documentation was on the older notes. This note was generated simply to allow entry of the proper codes, but the separate note/same date contains the actual clinical information. This should be a one-time issue, and I apologize for any confusion. Results & Data Vital Signs (Past 12 Hours) Vital Signs Temp Pulse Resp BP Pulse Ox 01/14/19 15:33 37.8 C H 92 H 18 138/74 97 01/14/19 07:25 37.2 C 94 H 18 161/75 H 96
[2019-01-15 08:15] LABS: Hematocrit (blood only) 22.1 % (42-52); Hemoglobin 7.1 g/dL (14.0-18.0); Mean Corpuscular Hgb Conc 32.1 g/dL (32-36); Mean Corpuscular Volume 76.7 fL (80-100); Mean Platelet Volume 8.7 fL (7.4-10.4); Platelet Count 486 K/uL (130-400); RDW Coefficient of Variation 17.5 % (11.5-14.5); RDW Standard Deviation 49.7 fL (36.4-46.3); Red Blood Count 2.88 M/uL (4.7-6.1); White Blood Count 7.61 K/uL (4.8-10.8)
[2019-01-15 09:02] LABS: Basophils # (auto) 0.01 K/uL (0-0.2); Basophils % (auto) 0.1 %; Eosinophils # (auto) 0.14 K/uL (0-0.5); Eosinophils % (auto) 1.8 %; Immature Granulocytes # (auto) 0.03 K/uL (0.00-0.02); Immature Granulocytes % (auto) 0.4 %; Lymphocytes # (auto) 1.43 K/uL (1.2-3.4); Lymphocytes % (auto) 18.8 %; Monocytes # (auto) 1.08 K/uL (0.11-0.59); Monocytes % (auto) 14.2 %; Neutrophils # (auto) 4.92 K/uL (1.4-6.5); Neutrophils % (auto) 64.7 %; Polychromasia 1+
[2019-01-15] MEDS: BICALUTAMIDE 50 MG TAB PO SCH (09:10)
[2019-01-15] MEDS: LOVASTATIN 20 MG TAB PO SCH (09:11)
[2019-01-15] MEDS: NORTRIPTYLINE HCL 25 MG CAP PO SCH ×2 (09:11→21:32)
[2019-01-15] MEDS: GABAPENTIN 300 MG CAP PO SCH ×3 (09:11→21:32)
[2019-01-15] MEDS: SODIUM BICARBONATE 650 MG TAB PO SCH ×2 (09:12→21:32)
[2019-01-15] MEDS: TAMSULOSIN HCL 0.4 MG CAP PO SCH ×2 (09:12→21:32)
[2019-01-15] MEDS: METOPROLOL SUCC 50MG EXT REL TAB PO SCH ×2 (09:12→21:32)
[2019-01-15] MEDS: PANTOprazole 40 MG TAB PO SCH ×2 (09:12→21:32)
[2019-01-15] MEDS: INSULIN ASPART 100 UNITS/ML 3 ML PEN SC SCH ×4 (09:13→22:02)
[2019-01-15] MEDS ORDERED: SODIUM CHLORIDE 0.9% 250 ML IV PRN (09:59)
[2019-01-15] MEDS: SODIUM CHLORIDE 0.9% 1000ML 1,000 ML IV SCH (10:59)
--- NOTE | 2019-01-15 13:21 | Family Medicine Progress Note ---
Date of Service January 15, 2019 Assessment & Plan (1) Lower GI bleed: 74-year-old male was admitted on 12 Jan 2018 for intermittent rectal bleeding beginning day of admit. GI bleed: Reportedly began acutely on 30May. Baseline on aspirin, held on admit. Per GI notes, last colonoscopy January 2018, noted diverticular disease. PMH gastric ulcer in Sep 2017 as well, healed on repeat EGD in January. Suspect diverticular bleed. - On admit, given NS IVF bolus and now on maintenance rate. - GI consulted (see related note) no colonoscopy for now -Patient having recurrent bright red blood with bowel movements. Nuclear medicine scan ordered to locate region of bleed for possible intervention Iron deficiency anemia: Baseline roughly 8s. Admit Hb 8.3 dropped to 7.1 yesterday. Today stable at 7.3 as of this afternoon despite 2 bloody bowel movements this morning will continue to monitor Type and cross with 2 units PRBC on hold Repeat hemoglobin ordered for 18:00 today Will transfuse if hemoglobin less than 7, tachycardic, short of breath/hypoxic or if continues to be significantly fatigued as likely hemoglobin will drop further Thrombocytosis: Admit platelets 625 improved to 486 May be reactive from anemia / acute blood loss. Following. Nasal MRSA positive: On intake labs, same as November 2018. Ongoing medical issues: - Hypertension, hyperlipidemia: On metoprolol, diltiazem, lovastatin. - DM2, diabetic neuropathy: On insulin sliding scale here. On Neurontin and nortriptyline. - CKD stage 3: Report of CKD, though recent Cr as low as 0.99. Admit Cr 1.38. Monitor. - Prostate adenocarcinoma: Locally invasive. S/p hormone and radiation therapy Jul 2018 (with thrombocytopenia then). On casodex. - Urinary retention, chronic indwelling Hamm catheter: On sodium bicarb, Flomax. - History of left heel osteomyelitis (2018). C diff carrier. Chronic left hip pain, osteoarthritis. Fatty liver. Code status: Discussed with the patient. He states he would not wish to have CPR or be hooked up to a breathing machine. He agreed to DNR. Diet: Full Diet, low fiber; nutritional supplement boost ordered per patient request DVT prophy: SCDs. Chemical prophylaxis held due to bleeding. PT/OT: Deferred. Disbo: Patient is a prisoner at [facility]. (2) Anemia: (3) Thrombocytosis: (4) MRSA nasal colonization: (5) HTN (hypertension): (6) Hyperlipidemia: (7) Diabetes: (8) Diabetic neuropathy: (9) CKD (chronic kidney disease): (10) Prostate cancer: (11) Urinary retention: (12) Indwelling Hamm catheter present: (13) Clostridium difficile carrier: (14) Chronic left hip pain: (15) Fatty liver: Supervising Physician Co-Signing Physician Notes I personally examined the patient and verified all mason points of history and exam, discussed case, and agree with decision making with Dr Morrell. Feeling about the same, may be a little bit more fatigued, but he did have a recurrence of bloody bowel movements several times now today. Vitals noted, in general he is awake and alert pleasant no distress. HEENT normal cephalic atraumatic mucous members moist. Breathing is unlabored no accessory muscle use. Skin shows no rashes no pallor or icterus. Hematocheziaappears quite consistent with a diverticular bleed. Aspirin on hold, yesterday the bleeding seems to have stopped, but now today it recurred. Given this we will check a tagged red cell scan. We will continue to follow his hemoglobin closely. Right now he does not show clear indications for transfusion, but with his fatigue if it does not improve or his hemoglobin continues to drop then definitely transfusion would be warranted, also certainly warranted should he show any persistent degree of tachycardia or a drop in blood pressure. Given that the bleeding recurred we will type and cross 2 units of that if transfusion is needed it can be done expeditiously. We will await the results of the tagged red cell scan. We will continue observation and supportive care. Intermittent feversuncertain etiologyblood cultures from the time of his last fever no growth to date. We will follow clinically, serial exams, and follow inflammatory markers. No clear indication for antibiotics at this time. otherwise as above Subjective Patient appears fatigued. Reports having 2 bowel movements but unsure how they looked because he did not see it. Denies any abdominal discomfort, nausea, vomiting, chest pain, shortness of breath, headache, lightheadedness. Per nursing staff and as visualized diffuse bright red blood with formed stool. Review of Systems Review of Systems: As per HPI Physical Exam Physical Exam: General: In no acute distress, resting in bed, appears fatigued CV: RRR no m/r/g appreciated Pulm: CTAB, equal breath sounds bilaterally Abdomen: +BS, nondistended, nontender to palpation all quadrants, visualized stool - diffusely bloody and formed LE: No lower extremity edema or calf tenderness Results & Data Vital Signs (Past 12 Hours) Vital Signs Temp Pulse Resp BP Pulse Ox 01/15/19 07:10 37.4 C 97 H 18 155/71 H 95 Laboratory Results Abnormal lab results 01/15/19 01/15/19 01/15/19 Range/Units 08:04 10:18 13:03 RBC 2.88 L (4.7-6.1) M/uL Hgb 7.1 L 7.3 L (14.0-18.0) g/dL Hct 22.1 L (42-52) % MCV 76.7 L (80-100) fL MCH 24.7 L (25-34) pg RDW Std Deviation 49.7 H (36.4-46.3) fL RDW Coeff of Meaghan 17.5 H (11.5-14.5) % Plt Count 486 H (130-400) K/uL Immature Gran # (Auto) 0.03 H (0.00-0.02) K/uL Green # (Auto) 1.08 H (0.11-0.59) K/uL Crossmatch See Detail Diagnostic Findings Nuclear medicine scan orderedpending Resident Activity Tracking Resident Involvement: Resident Care Provided Care Provided: Adult [facility] Medicine
--- NOTE | 2019-01-15 15:02 | Nuclear Medicine Report ---
NUCLEAR GI BLEEDING SCAN CLINICAL HISTORY: Rectal bleeding. COMPARISON STUDY: Abdominal CT dated 12/10/2018. TECHNIQUE: Following the IV administration of 25.6 mCi of technetium 99m UltraTag labeled red blood c ells, nuclear bleeding scan was performed. Tracer was injected into the left upper extremity. Anterio r flow images were obtained every 2 seconds for a total 58 seconds. Anterior static images were obtai aylin every 5 minutes for a total of 60 minutes. FINDINGS: There is expected tracer activity within the abdominal aorta, the liver, spleen, and heart. The dynamic images show trace nonspecific transient foci of activity in the central pelvis, which may correspond to the rectosigmoid region. No additional foci of abnormal tracer deposition identified throughout the bowel to suggest a site of active GI bleeding. IMPRESSION: 1. There are questionable thoracic transient activity seen only on the dynamic images in the region o f the central pelvis which may correspond to the rectosigmoid region. 2. No additional foci of abnormal tracer deposition are identified throughout the bowel to indicate a site of bleeding. Electronically signed by: Celestine Quiroz M.D. 01/15/2019 3:01 PM
[2019-01-16] MEDS: SODIUM CHLORIDE 0.9% 1000ML 1,000 ML IV SCH ×2 (05:58→19:41)
[2019-01-16 07:17] LABS: Basophils # (auto) 0.01 K/uL (0-0.2); Basophils % (auto) 0.1 %; Eosinophils # (auto) 0.17 K/uL (0-0.5); Hematocrit (blood only) 22.4 % (42-52); Hemoglobin 7.1 g/dL (14.0-18.0); Immature Granulocytes # (auto) 0.04 K/uL (0.00-0.02); Immature Granulocytes % (auto) 0.5 %; Mean Corpuscular Hgb Conc 31.7 g/dL (32-36); Mean Corpuscular Volume 76.7 fL (80-100); Monocytes # (auto) 1.49 K/uL (0.11-0.59); Monocytes % (auto) 17.3 %; Neutrophils # (auto) 5.69 K/uL (1.4-6.5); Neutrophils % (auto) 66.1 %; Platelet Count 495 K/uL (130-400); RDW Coefficient of Variation 17.7 % (11.5-14.5); RDW Standard Deviation 49.9 fL (36.4-46.3); Red Blood Count 2.92 M/uL (4.7-6.1)
[2019-01-16 07:44] LABS: Hypochromasia Present; Polychromasia 1+
[2019-01-16 07:49] LABS: BUN Creatinine Ratio 9.4 (10-20); C Reactive Protein 10.8 mg/dl (0-0.29); Calcium 8.3 mg/dl (8.5-10.1); Creatinine Clr Calc Pharmacy 53.5 ml/min; Est GFR (African American) 79.5; Est GFR (Non-African American) 68.6; Potassium 3.4 mmol/L (3.5-5.1)
[2019-01-16] MEDS: INSULIN ASPART 100 UNITS/ML 3 ML PEN SC SCH ×3 (08:30→19:16)
[2019-01-16] MEDS: BICALUTAMIDE 50 MG TAB PO SCH (08:33)
[2019-01-16] MEDS: METOPROLOL SUCC 50MG EXT REL TAB PO SCH ×2 (08:33→20:31)
[2019-01-16] MEDS: GABAPENTIN 300 MG CAP PO SCH ×3 (08:33→20:31)
[2019-01-16] MEDS: TAMSULOSIN HCL 0.4 MG CAP PO SCH ×2 (08:33→20:31)
[2019-01-16] MEDS: LOVASTATIN 20 MG TAB PO SCH (08:33)
[2019-01-16] MEDS: PANTOprazole 40 MG TAB PO SCH ×2 (08:34→20:31)
[2019-01-16] MEDS: SODIUM BICARBONATE 650 MG TAB PO SCH ×2 (08:34→20:31)
[2019-01-16] MEDS: NORTRIPTYLINE HCL 25 MG CAP PO SCH ×2 (08:34→20:31)
--- NOTE | 2019-01-16 10:34 | Family Medicine Progress Note ---
Date of Service January 16, 2019 Assessment & Plan (1) Lower GI bleed: Mr. Emmanuel is a 74 year old male who was admitted on 12 Jan 2018 for intermittent rectal bleeding beginning day of admit. Lower GI bleed: - home aspirin held on admit. - GI consulted -For colonoscopy in am. - h/h. blood transfusion. IVF Acute blood loss anemia: - Baseline roughly 8 - Hgb 7.1 this AM and dropped to 5.2 upon afternoon recheck. Will order transfusion w/2 units prbcs - pt made NPO and will consult GI again. Pt may require transfer to tertiary care center for IR intervention Thrombocytosis: - Admit platelets 625, improved to 495 May be reactive from anemia / acute blood loss. Following. Fever - pt has had periodic, cyclical fevers -> highest temp was 38.7 C on 01/15 - normal WCC, no localizing symptoms, bcx drawn at time of first fever on 01/13 negative - CRP elevated at 10.8 - HIV, treponemal antibodies, peripheral smear, LDH and Lyme titers ordered to try and identify cause of fevers Nasal MRSA positive: -On intake labs, same as November 2018. Hypertension, hyperlipidemia: - On metoprolol, diltiazem, lovastatin. DM2 w/diabetic neuropathy - On insulin sliding scale here. On Neurontin and nortriptyline. - glucose well controlled, levels ranging from 88 - 107 CKD stage 3: - Report of CKD, though recent Cr as low as 0.99. - Creatinine 1.05 today Prostate adenocarcinoma: - Locally invasive. S/p hormone and radiation therapy Jul 2018 (with thrombo cytopenia then). On casodex. Urinary retention, chronic indwelling Hamm catheter: On sodium bicarb, Flomax. Other medical problems: History of left heel osteomyelitis (2018), C diff carrier, Chronic left hip pain, osteoarthritis, Fatty liver. Code status: DNR/DNI Diet: NPO DVT prophylaxis: SCDs. Chemical prophylaxis held due to bleeding. Disposition: Patient is a prisoner at [facility]. (2) Anemia: (3) Thrombocytosis: (4) MRSA nasal colonization: (5) HTN (hypertension): (6) Hyperlipidemia: (7) Diabetes: (8) Diabetic neuropathy: (9) CKD (chronic kidney disease): (10) Prostate cancer: (11) Urinary retention: (12) Indwelling Hamm catheter present: (13) Clostridium difficile carrier: (14) Chronic left hip pain: (15) Fatty liver: Supervising Physician Co-Signing Physician Notes Resident Physician Supervision Note: I independently interviewed and examined the patient and verified the mason history and physical, reviewed labs and image studies, discussed the case with the resident Dr. Aviles and agree with the findings and care plan. Subjective Mr. Emmanuel reports he continues to remain fatigued and feeling weak. He denies any chest pain, shortness of breath, abdominal pain. Per nursing, he has had trickles of liquid stool, that have been mostly brown in color. He denies any upper respiratory symptoms, or cough. Review of Systems Constitutional: + fatigue, + weakness and + anorexia; no fever and no chills Respiratory: no cough and no dyspnea Cardiovascular: no chest pain, no edema and no calf pain Gastrointestinal: + change in bowel habits and + blood in stools; no abdominal pain, no nausea and no vomiting Physical Exam Constitutional: + ill appearing and + thin Eyes: PERRL, conjunctivae normal, anicteric sclerae Respiratory: normal respiratory effort, lungs clear to auscultation Cardiovascular: RRR, no murmur, no edema Gastrointestinal (Abdomen): normal bowel sounds, soft, nontender, no hepatosplenomegaly Musculoskeletal: Extremities: extremities normal to inspection Results & Data Vital Signs (Past 12 Hours) Vital Signs Temp Pulse Resp BP Pulse Ox 01/16/19 07:12 37.4 C 93 H 20 145/69 H 95 01/15/19 22:45 38.3 C H 106 H 18 130/72 95 Resident Activity Tracking Resident Involvement: Resident Care Provided Care Provided: Adult Hospital Medicine
[2019-01-16] MEDS: ACETAMINOPHEN 325 MG TAB PO PRN (13:38)
[2019-01-16 15:38] LABS: Hemoglobin 5.2 g/dL (14.0-18.0)
[2019-01-16] MEDS ORDERED: SODIUM CHLORIDE 0.9% 250 ML IV PRN ×2 (15:44→19:09)
[2019-01-16 16:20] LABS: Lyme Ab IgM w/WB Rflx Negative (Negative)
[2019-01-16 16:21] LABS: Lyme Ab IgG w/WB Rflx Negative (Negative)
--- NOTE | 2019-01-16 16:47 | Gastroenterology Progress Note ---
Date of Service January 16, 2019 Assessment & Plan (1) Lower GI bleed: 74 yr old male with prostate cancer, DM, diabetic neuropathy who experienced rectal bleeding, likely ischemic colits vs. diverticular bleeding. He remains hemodynamically stable and the amt of bleeding is decreasing. Because he has had a colonoscopy in the past year, colon cancer extremely unlikely and because diverticulosis was present on that scope, a diverticular bleed is likely. Bleeding persistent, bleeding scan arranged by primary service over the weekend w question of transient activity seen only on the dynamic images in the region of the central pelvis which may correspond to the rectosigmoid region. Repeat HGB this AM 5 w/o BUN elevation. He is confused on my examination today. Work up mental status change Trend H&H Transfuse PRN Will discuss with attending Given drop in HGB and positive bleeding scan over the weekend, will plan for prep this evening and likely colonoscopy tomorrow unless patient develops hemodynamic instability, in which case would transfer to tertiary care center. Thank you for allowing us to participate in the care of this patient. Please call with any acute changes, questions or concerns. Please see addendum below with additional recommendation from my supervising physician. Present on Admission?: Yes Supervising Physician Co-Signing Physician Notes I have seen and examined the patient with PATRIA Adan whose note reflects our findings and plan. Abd exam is benign. Start prep for colonoscopy. Above note addended. Subjective GI asked to re-evaluate for drop in HGB. Pt was seen and evaluated, chart reviewed. Upon entering room pt is getting additional IV access. To be transferred to monitored bed. Two guards at bedside. He is awake, but confused. Can tell me his name. Unoriented to place, time. Denies abd pain. Notes persistent stools but is unable to tell me color. He does not recall having black/bloody stools. No nausea, vomiting. Ate breakfast this AM. Feels weak. Review of Systems Constitutional: + fatigue and + weakness Respiratory: no cough and no dyspnea Cardiovascular: no chest pain and no radiating jaw, neck or arm pain Gastrointestinal: + blood in stools; no abdominal pain, no nausea, no coffee ground emesis, no hematemesis and no melena Physical Exam Constitutional: + ill appearing and + thin Respiratory: normal respiratory effort Cardiovascular: Rate/Rhythm: regular rate and regular rhythm Extremities: no edema Gastrointestinal (Abdomen): Inspection/Auscultation: abdomen normal to inspection and normal bowel sounds Percussion/Palpation: abdomen soft; abdomen nontender, no guarding and abdomen not rigid Results & Data Vital Signs (Past 12 Hours) Vital Signs Temp Pulse Resp BP Pulse Ox 01/16/19 15:53 36.8 C 85 20 132/67 95 01/16/19 07:12 37.4 C 93 H 20 145/69 H 95 Laboratory Results 01/16/19 01/16/19 01/16/19 Range/Units 15:13 15:13 15:13 WBC (4.8-10.8) K/uL RBC (4.7-6.1) M/uL Hgb (14.0-18.0) g/dL Hct (42-52) % MCV (80-100) fL MCH (25-34) pg MCHC (32-36) g/dL RDW Std Deviation (36.4-46.3) fL RDW Coeff of Meaghan (11.5-14.5) % Plt Count (130-400) K/uL MPV (7.4-10.4) fL Immature Gran % (Auto) % Neut % (Auto) % Lymph % (Auto) % [place] % (Auto) % Eos % (Auto) % Baso % (Auto) % Immature Gran # (Auto) (0.00-0.02) K/uL Neut # (Auto) (1.4-6.5) K/uL Lymph # (Auto) (1.2-3.4) K/uL [place] # (Auto) (0.11-0.59) K/uL Eos # (Auto) (0-0.5) K/uL Baso # (Auto) (0-0.2) K/uL Polychromasia Hypochromasia Peripher Smr Path Cons Sodium (136-145) mmol/L Potassium (3.5-5.1) mmol/L Chloride (98-107) mmol/L Carbon Dioxide (21-32) mmol/L Anion Gap (3-11) BUN (7-18) mg/dl Creatinine (0.6-1.4) mg/dl Est Cr Clr Drug Dosing ml/min Est GFR ( Amer) Est GFR (Non-Af Amer) BUN/Creatinine Ratio (10-20) Glucose (70-99) mg/dl POC Glucose (70-99) Calcium (8.5-10.1) mg/dl Lactate Dehydrogenase 221 (87-241) U/L C-Reactive Protein (0-0.29) mg/dl T.pallidum Ab (FTA-ABS) Pending Lyme Disease IgG Ab (Negative) Lyme Disease IgM Ab (Negative) HIV 1&2 Ab/P24 Ag 4thGn Pending 01/16/19 01/16/19 01/16/19 Range/Units 15:13 15:13 12:08 WBC (4.8-10.8) K/uL RBC (4.7-6.1) M/uL Hgb 5.2 L* (14.0-18.0) g/dL Hct 16.0 L* (42-52) % MCV (80-100) fL MCH (25-34) pg MCHC (32-36) g/dL RDW Std Deviation (36.4-46.3) fL RDW Coeff of Meaghan (11.5-14.5) % Plt Count (130-400) K/uL MPV (7.4-10.4) fL Immature Gran % (Auto) % Neut % (Auto) % Lymph % (Auto) % [place] % (Auto) % Eos % (Auto) % Baso % (Auto) % Immature Gran # (Auto) (0.00-0.02) K/uL Neut # (Auto) (1.4-6.5) K/uL Lymph # (Auto) (1.2-3.4) K/uL [place] # (Auto) (0.11-0.59) K/uL Eos # (Auto) (0-0.5) K/uL Baso # (Auto) (0-0.2) K/uL Polychromasia Hypochromasia Peripher Smr Path Cons Pending Sodium (136-145) mmol/L Potassium (3.5-5.1) mmol/L Chloride (98-107) mmol/L Carbon Dioxide (21-32) mmol/L Anion Gap (3-11) BUN (7-18) mg/dl Creatinine (0.6-1.4) mg/dl Est Cr Clr Drug Dosing ml/min Est GFR ( Amer) Est GFR (Non-Af Amer) BUN/Creatinine Ratio (10-20) Glucose (70-99) mg/dl POC Glucose 98 (70-99) Calcium (8.5-10.1) mg/dl Lactate Dehydrogenase (87-241) U/L C-Reactive Protein (0-0.29) mg/dl T.pallidum Ab (FTA-ABS) Lyme Disease IgG Ab Negative (Negative) Lyme Disease IgM Ab Negative (Negative) HIV 1&2 Ab/P24 Ag 4thGn 01/16/19 01/16/19 01/16/19 Range/Units 07:52 07:00 07:00 WBC 8.60 (4.8-10.8) K/uL RBC 2.92 L (4.7-6.1) M/uL Hgb 7.1 L (14.0-18.0) g/dL Hct 22.4 L (42-52) % MCV 76.7 L (80-100) fL MCH 24.3 L (25-34) pg MCHC 31.7 L (32-36) g/dL RDW Std Deviation 49.9 H (36.4-46.3) fL RDW Coeff of Meaghan 17.7 H (11.5-14.5) % Plt Count 495 H (130-400) K/uL MPV 9.0 (7.4-10.4) fL Immature Gran % (Auto) 0.5 % Neut % (Auto) 66.1 % Lymph % (Auto) 14.0 % [place] % (Auto) 17.3 % Eos % (Auto) 2.0 % Baso % (Auto) 0.1 % Immature Gran # (Auto) 0.04 H (0.00-0.02) K/uL Neut # (Auto) 5.69 (1.4-6.5) K/uL Lymph # (Auto) 1.20 (1.2-3.4) K/uL [place] # (Auto) 1.49 H (0.11-0.59) K/uL Eos # (Auto) 0.17 (0-0.5) K/uL Baso # (Auto) 0.01 (0-0.2) K/uL Polychromasia 1+ Hypochromasia Present Peripher Smr Path Cons Sodium 141 (136-145) mmol/L Potassium 3.4 L (3.5-5.1) mmol/L Chloride 109 H (98-107) mmol/L Carbon Dioxide 24 (21-32) mmol/L Anion Gap 8.0 (3-11) BUN 10 (7-18) mg/dl Creatinine 1.05 (0.6-1.4) mg/dl Est Cr Clr Drug Dosing 53.5 ml/min Est GFR ( Amer) 79.5 Est GFR (Non-Af Amer) 68.6 BUN/Creatinine Ratio 9.4 L (10-20) Glucose 77 (70-99) mg/dl POC Glucose 88 (70-99) Calcium 8.3 L (8.5-10.1) mg/dl Lactate Dehydrogenase (87-241) U/L C-Reactive Protein 10.80 H (0-0.29) mg/dl T.pallidum Ab (FTA-ABS) Lyme Disease IgG Ab (Negative) Lyme Disease IgM Ab (Negative) HIV 1&2 Ab/P24 Ag 4thGn 01/15/19 01/15/19 01/15/19 Range/Units 20:14 19:01 17:18 WBC (4.8-10.8) K/uL RBC (4.7-6.1) M/uL Hgb 7.3 L (14.0-18.0) g/dL Hct (42-52) % MCV (80-100) fL MCH (25-34) pg MCHC (32-36) g/dL RDW Std Deviation (36.4-46.3) fL RDW Coeff of Meaghan (11.5-14.5) % Plt Count (130-400) K/uL MPV (7.4-10.4) fL Immature Gran % (Auto) % Neut % (Auto) % Lymph % (Auto) % [place] % (Auto) % Eos % (Auto) % Baso % (Auto) % Immature Gran # (Auto) (0.00-0.02) K/uL Neut # (Auto) (1.4-6.5) K/uL Lymph # (Auto) (1.2-3.4) K/uL [place] # (Auto) (0.11-0.59) K/uL Eos # (Auto) (0-0.5) K/uL Baso # (Auto) (0-0.2) K/uL Polychromasia Hypochromasia Peripher Smr Path Cons Sodium (136-145) mmol/L Potassium (3.5-5.1) mmol/L Chloride (98-107) mmol/L Carbon Dioxide (21-32) mmol/L Anion Gap (3-11) BUN (7-18) mg/dl Creatinine (0.6-1.4) mg/dl Est Cr Clr Drug Dosing ml/min Est GFR ( Amer) Est GFR (Non-Af Amer) BUN/Creatinine Ratio (10-20) Glucose (70-99) mg/dl POC Glucose 94 107 H (70-99) Calcium (8.5-10.1) mg/dl Lactate Dehydrogenase (87-241) U/L C-Reactive Protein (0-0.29) mg/dl T.pallidum Ab (FTA-ABS) Lyme Disease IgG Ab (Negative) Lyme Disease IgM Ab (Negative) HIV 1&2 Ab/P24 Ag 4thGn
[2019-01-16] MEDS ORDERED: LAVAGE SOLUTION 4000ML PO SCH ×2 (18:00)
[2019-01-17] MEDS: INSULIN ASPART 100 UNITS/ML 3 ML PEN SC SCH ×5 (00:02→22:15)
[2019-01-17 00:17] LABS: Hematocrit (blood only) 32.1 % (42-52); Hemoglobin 11.2 g/dL (14.0-18.0)
[2019-01-17] MEDS: SODIUM CHLORIDE 0.9% 1000ML 1,000 ML IV SCH ×2 (04:33→15:19)
[2019-01-17 07:47] LABS: Basophils # (auto) 0.01 K/uL (0-0.2); Basophils % (auto) 0.1 %; Eosinophils # (auto) 0.27 K/uL (0-0.5); Eosinophils % (auto) 3.5 %; Hemoglobin 10.5 g/dL (14.0-18.0); Immature Granulocytes # (auto) 0.03 K/uL (0.00-0.02); Immature Granulocytes % (auto) 0.4 %; Lymphocytes # (auto) 1.15 K/uL (1.2-3.4); Mean Corpuscular Hgb Conc 33.9 g/dL (32-36); Mean Corpuscular Volume 78.5 fL (80-100); Mean Platelet Volume 8.7 fL (7.4-10.4); Monocytes # (auto) 1.01 K/uL (0.11-0.59); Monocytes % (auto) 13.2 %; Neutrophils # (auto) 5.19 K/uL (1.4-6.5); Neutrophils % (auto) 67.8 %; Platelet Count 438 K/uL (130-400); RDW Coefficient of Variation 17.3 % (11.5-14.5); RDW Standard Deviation 49.6 fL (36.4-46.3); Red Blood Count 3.95 M/uL (4.7-6.1); White Blood Count 7.66 K/uL (4.8-10.8)
[2019-01-17 08:15] LABS: BUN Creatinine Ratio 9.2 (10-20); Calcium 8.7 mg/dl (8.5-10.1); Creatinine Clr Calc Pharmacy 62.3 ml/min; Est GFR (African American) 92.1; Est GFR (Non-African American) 79.5; Potassium 3.4 mmol/L (3.5-5.1)
[2019-01-17] MEDS: NORTRIPTYLINE HCL 25 MG CAP PO SCH ×2 (09:00→20:18)
[2019-01-17] MEDS: LOVASTATIN 20 MG TAB PO SCH (09:00)
[2019-01-17] MEDS: BICALUTAMIDE 50 MG TAB PO SCH (09:00)
[2019-01-17] MEDS: TAMSULOSIN HCL 0.4 MG CAP PO SCH ×2 (09:00→20:20)
[2019-01-17] MEDS: GABAPENTIN 300 MG CAP PO SCH ×3 (09:00→20:19)
[2019-01-17] MEDS: PANTOprazole 40 MG TAB PO SCH ×2 (09:00→20:19)
[2019-01-17] MEDS: METOPROLOL SUCC 50MG EXT REL TAB PO SCH ×2 (09:00→20:19)
[2019-01-17] MEDS: SODIUM BICARBONATE 650 MG TAB PO SCH ×2 (09:01→20:19)
--- NOTE | 2019-01-17 09:42 | Gastroenterology Progress Note ---
Date of Service January 17, 2019 Assessment & Plan (1) Lower GI bleed: 74 yr old male with prostate cancer, DM, diabetic neuropathy who experienced rectal bleeding, likely ischemic colits vs. diverticular bleeding. He remains hemodynamically stable and the amt of bleeding is decreasing. Because he has had a colonoscopy in the past year, colon cancer extremely unlikely and because diverticulosis was present on that scope, a diverticular bleed is likely. Bleeding persistent, bleeding scan arranged by primary service over the weekend w question of transient activity seen only on the dynamic images in the region of the central pelvis which may correspond to the rectosigmoid region. NPO Tap water enema Cscopy today Please see prior note for additional recommendation, plan Trend H&H Transfuse PRN Thank you for allowing us to participate in the care of this patient. Please call with any acute changes, questions or concerns. Please see addendum below with additional recommendation from my supervising physician. Supervising Physician Co-Signing Physician Notes I have seen and examined the patient with PATRIA Adan whose note reflects our findings and plan. EGD and colonoscopy today. Patient apparently complaining of dysphagia, though admits he doesn't use his dentures when he eats because "it's too inconvenient to clean them." no blood with prep for colonoscopy. Subjective Transferred to PCU. HGB responded to 2 units. Had continued rectal bleeding with prep. Only took about 1/2. Notes semi-formed and liquid stools. He is unsure of color but chart review indicated continued rectal bleeding. Agreeable to tap water enema, Review of Systems Constitutional: no fever and no chills Respiratory: no cough and no chest congestion Cardiovascular: no chest pain and no chest pain at rest Gastrointestinal: + blood in stools; no abdominal pain and no early satiety Physical Exam Constitutional: + ill appearing and + thin Neck: trachea midline Respiratory: normal respiratory effort Cardiovascular: Rate/Rhythm: regular rate and regular rhythm Gastrointestinal (Abdomen): Inspection/Auscultation: + abdomen distended ( mild) Percussion/Palpation: abdomen soft; abdomen nontender, no guarding and abdomen not rigid Skin: no rashes, warm and dry Results & Data Vital Signs (Past 12 Hours) Vital Signs Temp Pulse Pulse Resp BP BP Pulse Ox 01/17/19 07:52 37.1 C 93 H 18 182/94 H 98 01/17/19 07:31 86 01/17/19 03:33 36.5 C 87 16 165/86 H 98 01/16/19 23:15 37 C 86 20 139/79 98 01/16/19 22:45 36.9 C 83 19 159/85 H 96 01/16/19 22:43 36.9 C 83 19 159/85 H 96 01/16/19 22:24 36.8 C 87 20 158/81 H 96 01/16/19 21:51 36.6 C 86 20 153/76 H 97
[2019-01-17] MEDS ORDERED: POTASSIUM CHLORIDE / WTR 10 MEQ/100 ML PLCT IV ONE (11:43)
--- NOTE | 2019-01-17 12:05 | Family Medicine Progress Note ---
Date of Service January 17, 2019 Assessment & Plan (1) Lower GI bleed: Mr. Emmanuel is a 74 year old male who was admitted on 12 Jan 2018 for intermittent rectal bleeding beginning day of admit. GI bleed: - Reportedly began acutely on 30May. - home aspirin held on admit. - Per GI notes, last colonoscopy January 2018, noted diverticular disease. PMH gastric ulcer in Sep 2017 as well, healed on repeat EGD in January. - GI consulted -> pt to undergo colonoscopy today to evaluate ongoing bleeding. Suspect diverticular bleed. Pt NPO and will undergo tap water enema - Continue NS at 75mls/hr - h/h stable. continue to monitor. hb 5.2 reading likely spurious. Acute blood loss anemia: - Baseline roughly 8 - Hgb 5.2 yesterday, transfused 2 units of prbcs. Hgb this AM 10.5 - continue to monitor h/h Thrombocytosis: - Admit platelets 625, improved to 438. May be reactive from anemia / acute blood loss. Following. Fever - pt has had periodic, cyclical fevers -> highest temp was 38.7 C on 01/15. This was also his last fever. - normal WCC, no localizing symptoms, bcx drawn at time of first fever on 01/13 negative - CRP elevated at 10.8 - HIV and Lyme titres negative - treponemal antibodies pending - LDH WNL. Peripheral smear consistent with acute on chronic microcytic anemia. - no indication to start abx at this time - continue to monitor. Pt was afebrile overnight. Hypokalemia - repleted, likely due to poor oral intake Dysphagia - pt reports pain/trouble with swallowing - unsure of chronicity of this complaint as pt only mentioned it today - discussed w/GI and will also order SLT eval Nasal MRSA positive: -On intake labs, same as November 2018. Hypertension, hyperlipidemia: - On metoprolol, diltiazem, lovastatin. DM2 w/diabetic neuropathy - On insulin sliding scale here. On Neurontin and nortriptyline. - glucose well controlled CKD stage 3: - Report of CKD, though creatinine normal at 0.93 Prostate adenocarcinoma: - Locally invasive. S/p hormone and radiation therapy Jul 2018 (with thrombocytopenia then). On casodex. Urinary retention, chronic indwelling Hamm catheter: On sodium bicarb, Flomax. Other medical problems: History of left heel osteomyelitis (2018), C diff carrier, Chronic left hip pain, osteoarthritis, Fatty liver. Code status: DNR/DNI Diet: NPO DVT prophylaxis: SCDs. Chemical prophylaxis held due to bleeding. Disposition: Patient is a prisoner at [facility]. (2) Anemia: (3) Thrombocytosis: (4) MRSA nasal colonization: (5) HTN (hypertension): (6) Hyperlipidemia: (7) Diabetes: (8) Diabetic neuropathy: (9) CKD (chronic kidney disease): (10) Prostate cancer: (11) Urinary retention: (12) Indwelling Hamm catheter present: (13) Clostridium difficile carrier: (14) Chronic left hip pain: (15) Fatty liver: (16) Hypokalemia: (17) Dysphagia: Supervising Physician Co-Signing Physician Notes Resident Physician Supervision Note: I independently interviewed and examined the patient and verified the mason history and physical, reviewed labs and image studies, discussed the case with the resident Dr. Aviles and agree with the findings and care plan. Subjective Mr. Emmanuel reports he feels like he has slightly more energy today. He has had trouble with finishing his bowel prep. He reports that he has had pain in his throat and trouble with swallowing on occasion. He denies fever, chills, chest pain or shortness of breath. He does endorse some crampy abdominal pain. Review of Systems Constitutional: + fatigue, + weakness and + anorexia; no fever and no chills Respiratory: no cough and no dyspnea Cardiovascular: no chest pain, no palpitations and no syncope Gastrointestinal: + change in bowel habits and + blood in stools; no abdominal pain, no nausea and no vomiting Physical Exam Constitutional: + ill appearing and + thin ENMT: external ear and nose normal, oropharynx normal Respiratory: normal respiratory effort, lungs clear to auscultation Cardiovascular: RRR, no murmur, no edema Gastrointestinal (Abdomen): Inspection/Auscultation: abdomen normal to inspection Percussion/Palpation: + abdomen tender (mildly tender throughout abdomen) and abdomen soft; no guarding and abdomen not rigid Neurologic: awake; not confused Psychiatric: A+Ox3, euthymic affect Results & Data Vital Signs (Past 12 Hours) Vital Signs Temp Pulse Pulse Resp BP Pulse Ox 01/17/19 07:52 37.1 C 93 H 18 182/94 H 98 01/17/19 07:31 86 01/17/19 03:33 36.5 C 87 16 165/86 H 98 Resident Activity Tracking Resident Involvement: Resident Care Provided Care Provided: Adult Hospital Medicine
--- NOTE | 2019-01-17 13:04 | Anesthesiology Consultation ---
Date of Service January 17, 2019 Assessment & Plan (1) Encounter for pre-operative examination: Chart Review Chart Review: Acceptable Risk for Surgery and Patient NOT seen in Pre Admission Testing Consults Requested none History Surgery Operation Date: 01/17/19 09:00 Proposed Procedures p Colonoscopy Dr Babar Eckert Height/Weight Height: 5 ft 9 in Weight: 65.2 kg Allergies Allergy/AdvReac Type Severity Reaction Status Date / Time No Known Allergies Allergy Verified 01/12/19 11:39 Medications Home Medications Medication Instructions Recorded Confirmed Last Taken metoprolol succinate 100 mg PO BID 04/22/18 01/12/19 Unknown Lupron Depot (6 Month) 45 mg IM Q6M 12/10/18 01/12/19 Unknown acetaminophen [Tylenol Extra 1,000 mg PO TID PRN 12/10/18 01/12/19 12/09/18 19:28 Strength] gabapentin 300 mg PO TID #90 cap 12/19/18 01/12/19 Unknown tamsulosin 0.4 mg PO BID #60 cap 12/19/18 01/12/19 Unknown aspirin 81 mg PO DAILY 01/12/19 01/12/19 Unknown bicalutamide 50 mg PO DAILY 01/12/19 01/12/19 Unknown diltiazem HCl 60 mg PO BID 01/12/19 01/12/19 Unknown lovastatin 20 mg PO DAILY 01/12/19 01/12/19 Unknown nortriptyline 50 mg PO BID 01/12/19 01/12/19 Unknown nutritional supplements [Resource 1 ea PO TID 01/12/19 01/12/19 Unknown 2.0] pantoprazole 40 mg PO BID 01/12/19 01/12/19 Unknown polyethylene glycol 3350 [Gavilax] 1 g PO DAILY 01/12/19 01/12/19 Unknown sodium bicarbonate 650 mg PO BID 01/12/19 01/12/19 Unknown Active Medications Generic Name Dose Route Start Last Admin Trade Name Freq PRN Reason Stop Dose Admin Acetaminophen 650 mg 01/12/19 17:14 01/16/19 13:38 Tylenol PO 02/11/19 17:13 650 mg Q4H PRN Administration Pain or Fever Bicalutamide 50 mg 01/13/19 09:00 01/17/19 09:00 Casodex PO 02/12/19 08:59 50 mg DAILY NEIL Administration Diltiazem HCl 60 mg 01/12/19 21:00 01/17/19 09:01 Cardizem Sr PO 02/11/19 20:59 60 mg BID NEIL Administration Gabapentin 300 mg 01/12/19 21:00 01/17/19 09:00 Neurontin PO 02/11/19 20:59 300 mg TID NEIL Administration Sodium Chloride 1,000 mls @ 75 mls/hr 01/12/19 17:14 01/17/19 13:56 Nss 1000ml IV 02/11/19 17:13 0 mls/hr .[id number] NEIL Infusion Insulin Aspart 0 units 01/16/19 18:00 01/17/19 13:56 Novolog Flexpen SC 02/15/19 17:59 Not Given Q6 NEIL Lovastatin 20 mg 01/13/19 09:00 01/17/19 09:00 Mevacor PO 02/12/19 08:59 20 mg DAILY NEIL Administration Metoprolol Succinate 100 mg 01/12/19 21:00 01/17/19 09:00 Toprol Xl PO 02/11/19 20:59 100 mg BID NEIL Administration Miscellaneous 1 ea 01/13/19 07:00 01/13/19 06:07 Order Awaiting Action N/A 02/12/19 06:59 Not Given Fr@0700 NEIL Nortriptyline HCl 50 mg 01/12/19 21:00 01/17/19 09:00 Pamelor PO 02/11/19 20:59 50 mg BID NEIL Administration Ondansetron HCl 4 mg 01/12/19 17:14 01/17/19 10:19 Zofran IV 02/11/19 17:13 4 mg Q6H PRN Administration Nausea Pantoprazole Sodium 40 mg 01/12/19 21:00 01/17/19 09:00 Protonix PO 02/11/19 20:59 40 mg BID NEIL Administration Sodium Bicarbonate 650 mg 01/12/19 21:00 01/17/19 09:01 Sodium Bicarbonate PO 02/11/19 20:59 650 mg BID NEIL Administration Tamsulosin HCl 0.4 mg 01/12/19 21:00 01/17/19 09:00 Flomax PO 02/11/19 20:59 0.4 mg BID NEIL Administration Past Medical History Medical History Lower GI bleed (Acute) SONY (acute kidney injury) (Acute) CKD (chronic kidney disease) Diabetes HTN (hypertension) Anemia Chronic left hip pain (Acute) Indwelling Hamm catheter present (Acute) Prostate cancer (Acute) Urinary retention (Acute) Allergic rhinitis (Chronic) Diabetes mellitus (Chronic) Diabetic neuropathy (Chronic) Diverticulosis (Chronic) H/O type A viral hepatitis (Chronic) Hyperlipidemia (Chronic) Hypertension (Chronic) Iron deficiency anemia (Chronic) Liver disease (Chronic) Weight loss (Chronic) H/O osteomyelitis (Resolved) Exercise / Class Metabolic Activity IV < 2 Limit ADL/Bedbound Past Family History Family History Sister , Unknown age at ;Kidney failure;Cancer in "her leg" No problems noted. Father , unknown age of Prostate Cancer No problems noted. Mother , unknown age from fall & injuring head No problems noted. Son No problems noted. Sister No problems noted. Sister No problems noted. Past Surgical History Surgical History H/O oral surgery History of esophagogastroduodenoscopy (EGD) Past Anesthesia History No Hx of Anesthesia Complications and No Family Hx of Anesthesia Complications History of PONV No Hx of PONV and No Hx of Motion Sickness Social History Smoking Status: Former smoker tobacco type: cigarettes Smoking cigarettes per day: Less than 1/2 PPD when he smoked Hx Alcohol Use: No Hx Substance Use: No Physical Exam Vital Signs Last Vital Signs Temp 37.1 C 01/17/19 11:57 Pulse 87 01/17/19 11:57 Resp 18 01/17/19 11:57 BP 156/83 H 01/17/19 11:57 Pulse Ox 98 01/17/19 11:57 Testing Laboratory Results 01/17/19 07:33 01/17/19 07:33 01/12/19 01/12/19 01/12/19 12:55 12:57 13:52 PT 10.5 INR 1.0 APTT 24.3 Blood Type Cancelled B Positive Antibody Screen Cancelled NEGATIVE 01/15/19 10:18 PT INR APTT Blood Type B Positive Antibody Screen NEGATIVE 01/13/19 19:35 Aerobic Blood Culture - Preliminary Blood No growth in Aerobic bottle after 48 hours. Anaerobic Blood Culture - Preliminary No growth in Anaerobic bottle after 48 hours. 01/13/19 19:25 Aerobic Blood Culture - Preliminary Blood No growth in Aerobic bottle after 48 hours. Anaerobic Blood Culture - Preliminary No growth in Anaerobic bottle after 48 hours. Electrocardiogram Date: 01/12/19 Findings: + NSR @ (83) Normal sinus rhythm Possible Inferior infarct , age undetermined Abnormal ECG When compared with ECG of 10-DEC-2018 21:51, Vent. rate has decreased BY 54 BPM Nonspecific T wave abnormality no longer evident in Inferior leads Nonspecific T wave abnormality, improved in Anterolateral leads Confirmed by Yuri Aburto ([id number]) on 01/12/2019 10:25:35 PM Echocardiogram Date: 12/13/18 EF: 55-60% LV Function: normal RWMA: + none
[2019-01-17] MEDS ORDERED: PROPOFOL IV EMULSION 10 MG/ML 20 ML VIAL IV ONE (14:17)
[2019-01-17] MEDS ORDERED: LIDOCAINE HCL 2% 2 ML VIAL/AMP(20MG/ML) INFIL ONE (14:17)
--- NOTE | 2019-01-17 14:37 | GI REPORT ---
Patient Name: Brett Emmanuel Procedure Date: 01/17/2019 2:19 PM Date of : 1945 Admit Type: Inpatient Age: 74 Gender: Male Attending MD: Shilpa Eckert DO Procedure: Upper GI endoscopy Providers: Shilpa Eckert DO Referring MD: Dora Li Indications: Dysphagia Medicines: Propofol per Anesthesia Complications: No immediate complications. Estimated blood loss: None. Estimated Blood Loss: Estimated blood loss: none. Procedure: Pre-Anesthesia Assessment: - Prior to the procedure, a History and Physical was performed, and patient medications, allergies and sensitivities were reviewed. The patient's tolerance of previous anesthesia was reviewed. - The risks and benefits of the procedure and the sedation options and risks were discussed with the patient. All questions were answered and informed consent was obtained. - Patient identification and proposed procedure were verified prior to the procedure by the physician and the nurse. The procedure was verified in the pre-procedure area in the procedure room. - Mental Status Examination: alert and oriented. Airway Examination: normal oropharyngeal airway and neck mobility. Respiratory Examination: clear to auscultation. CV Examination: normal. Abdominal Examination: bowel sounds present, abdomen soft and non-tender, no masses or organomegaly noted. - ASA Grade Assessment: III - A patient with severe systemic disease. After obtaining informed consent, the endoscope was passed under direct vision. Throughout the procedure, the patient's blood pressure, pulse, and oxygen saturations were monitored continuously. The scope was introduced through the mouth, and advanced to the second part of duodenum. The upper GI endoscopy was accomplished without difficulty. The patient tolerated the procedure well. Findings: The esophagus was normal. The stomach was normal. The examined duodenum was normal. Impression: - Normal esophagus. - Normal stomach. - Normal examined duodenum. - No specimens collected. Recommendation: - Use dentures to chew food. - Advance diet as tolerated. - Return patient to hospital [facility]. Brian Kim DO 01/17/2019 2:37:14 PM This report has been signed electronically. Note Initiated On: 01/17/2019 2:19 PM Number of Addenda: 0 I attest to the content of the Intraoperative Record and orders documented therein, exceptions below {[id number]}
--- NOTE | 2019-01-17 14:43 | GI REPORT ---
Patient Name: Brett Emmanuel Procedure Date: 01/17/2019 2:24 PM Date of : 1945 Admit Type: Inpatient Age: 74 Gender: Male Attending MD: Shilpa Eckert DO Procedure: Colonoscopy Providers: Shilpa Eckert DO Referring MD: Dora Li Indications: Hematochezia Medicines: Propofol per Anesthesia Complications: No immediate complications. Estimated blood loss: None. Estimated Blood Loss: Estimated blood loss: none. Procedure: Pre-Anesthesia Assessment: - Prior to the procedure, a History and Physical was performed, and patient medications, allergies and sensitivities were reviewed. The patient's tolerance of previous anesthesia was reviewed. - The risks and benefits of the procedure and the sedation options and risks were discussed with the patient. All questions were answered and informed consent was obtained. - Patient identification and proposed procedure were verified prior to the procedure by the physician and the nurse. The procedure was verified in the pre-procedure area in the procedure room. - Mental Status Examination: alert and oriented. Airway Examination: normal oropharyngeal airway and neck mobility. Respiratory Examination: clear to auscultation. CV Examination: normal. Abdominal Examination: bowel sounds present, abdomen soft and non-tender, no masses or organomegaly noted. - ASA Grade Assessment: III - A patient with severe systemic disease. After I obtained informed consent, the scope was passed under direct vision. Throughout the procedure, the patient's blood pressure, pulse, and oxygen saturations were monitored continuously. The scope was introduced through the anus with the intention of advancing to the cecum. The scope was advanced to the sigmoid colon before the procedure was aborted. Medications were given. The colonoscopy was performed without difficulty. The patient tolerated the procedure well. The quality of the bowel preparation was unsatisfactory. Findings: The perianal and digital rectal examinations were normal. Pertinent negatives include normal sphincter tone and no palpable rectal lesions. A large amount of solid stool was found in the entire colon. A single (solitary) ulcer was found in the rectum. Impression: - Preparation of the colon was unsatisfactory. - Stool in the entire examined colon. - A single (solitary) ulcer in the rectum. - No specimens collected. Recommendation: - Bowel regimen. - Advance diet. - No plans for further studies. - Return patient to hospital [facility]. Shilpa T. Suvock, Brian Eckert DO 01/17/2019 2:43:17 PM This report has been signed electronically. Note Initiated On: 01/17/2019 2:24 PM Number of Addenda: 0 I attest to the content of the Intraoperative Record and orders documented therein, exceptions below {[id number]}
--- NOTE | 2019-01-17 14:50 | Anesthesiology Progress Note ---
Date of Service January 17, 2019 Anesthesia Post Procedure Vital Signs Vital Signs: Temp Pulse Pulse Resp BP BP Pulse Ox 01/17/19 14:49 88 16 155/79 H 99 01/17/19 14:33 85 16 130/71 100 01/17/19 14:08 37.3 C 91 H 16 167/81 H 98 01/17/19 11:57 37.1 C 87 18 156/83 H 98 01/17/19 07:52 37.1 C 93 H 18 182/94 H 98 01/17/19 07:31 86 01/17/19 03:33 36.5 C 87 16 165/86 H 98 01/16/19 23:15 37 C 86 20 139/79 98 01/16/19 22:45 36.9 C 83 19 159/85 H 96 01/16/19 22:43 36.9 C 83 19 159/85 H 96 01/16/19 22:24 36.8 C 87 20 158/81 H 96 01/16/19 21:51 36.6 C 86 20 153/76 H 97 01/16/19 20:51 36.7 C 88 20 152/89 H 97 01/16/19 20:27 37 C 88 18 172/87 H 97 01/16/19 20:21 37 C 90 19 172/85 H 96 01/16/19 20:06 37 C 88 18 172/87 H 97 01/16/19 20:03 36.7 C 89 18 178/80 H 95 01/16/19 19:50 36.7 C 89 19 182/77 H 94 01/16/19 19:36 36.8 C 93 H 20 175/85 H 01/16/19 18:30 36.7 C 85 16 164/88 H 01/16/19 18:00 36.6 C 84 18 143/84 H 95 01/16/19 17:30 36.9 C 81 18 146/71 H 94 01/16/19 17:00 36.7 C 89 18 142/74 H 95 01/16/19 16:52 36.8 C 83 18 154/74 H 93 01/16/19 15:53 36.8 C 85 20 132/67 95 Transfer of Care Handoff Completed per policy Notes Mental Status: alert / awake / arousable and participated in evaluation Patient Amnestic to Procedure: Yes Nausea / Vomiting: adequately controlled Pain: adequately controlled Airway Patency, RR, SpO2: stable & adequate BP & HR: stable & adequate Hydration State: stable & adequate Anesthetic Complications: no major complications apparent and Pt Satisfied with anesthetic care
[2019-01-17] MEDS: ACETAMINOPHEN 325 MG TAB PO PRN (15:24)
[2019-01-18] MEDS: SODIUM CHLORIDE 0.9% 1000ML 1,000 ML IV SCH (03:44)
[2019-01-18] MEDS: LOVASTATIN 20 MG TAB PO SCH (07:55)
[2019-01-18] MEDS: BICALUTAMIDE 50 MG TAB PO SCH (07:55)
[2019-01-18] MEDS: GABAPENTIN 300 MG CAP PO SCH ×2 (07:55→14:26)
[2019-01-18] MEDS: METOPROLOL SUCC 50MG EXT REL TAB PO SCH (07:56)
[2019-01-18] MEDS: NORTRIPTYLINE HCL 25 MG CAP PO SCH (07:56)
[2019-01-18] MEDS: TAMSULOSIN HCL 0.4 MG CAP PO SCH (07:56)
[2019-01-18] MEDS: PANTOprazole 40 MG TAB PO SCH (07:56)
[2019-01-18] MEDS: SODIUM BICARBONATE 650 MG TAB PO SCH ×2 (07:56→07:58)
[2019-01-18] MEDS: INSULIN ASPART 100 UNITS/ML 3 ML PEN SC SCH ×2 (07:57→12:22)
[2019-01-18 08:15] LABS: Basophils # (auto) 0.01 K/uL (0-0.2); Basophils % (auto) 0.1 %; Eosinophils % (auto) 2.3 %; Hematocrit (blood only) 33.7 % (42-52); Hemoglobin 11.3 g/dL (14.0-18.0); Immature Granulocytes # (auto) 0.02 K/uL (0.00-0.02); Immature Granulocytes % (auto) 0.2 %; Lymphocytes # (auto) 1.04 K/uL (1.2-3.4); Mean Corpuscular Hgb Conc 33.5 g/dL (32-36); Mean Corpuscular Volume 79.1 fL (80-100); Mean Platelet Volume 9.2 fL (7.4-10.4); Monocytes # (auto) 1.13 K/uL (0.11-0.59); Monocytes % (auto) 13.1 %; Neutrophils # (auto) 6.25 K/uL (1.4-6.5); Neutrophils % (auto) 72.3 %; Platelet Count 457 K/uL (130-400); RDW Coefficient of Variation 17.7 % (11.5-14.5); RDW Standard Deviation 50.3 fL (36.4-46.3); Red Blood Count 4.26 M/uL (4.7-6.1); White Blood Count 8.65 K/uL (4.8-10.8)
[2019-01-18 08:45] LABS: BUN Creatinine Ratio 6.7 (10-20); Calcium 8.9 mg/dl (8.5-10.1); Creatinine Clr Calc Pharmacy 65.7 ml/min; Est GFR (African American) 96.7; Est GFR (Non-African American) 83.4; Potassium 3.3 mmol/L (3.5-5.1)
[2019-01-18] MEDS ORDERED: POLYETHYLENE (MIRALAX) 17 GM PACK PO SCH (09:00)
--- NOTE | 2019-01-18 11:43 | XRay Report ---
KUB HISTORY: incontinent of stool, assess for constipation COMPARISON: Abdomen and pelvis CT 12/10/2018. FINDINGS: The bowel gas pattern is unremarkable. There are no dilated loops of small bowel to suggest an obstruction. No renal calculi. No ureteral calculi. Calcifications in the deep pelvis likely rep resent phleboliths. Moderate to large amount of well-formed stool within the colon. Mild elevation th e right hemidiaphragm. Chronic/degenerative changes noted within the left hip. There is flattening of the femoral head with subchondral sclerosis and lucency. This is consistent with avascular necrosis. No pneumoperitoneum or pneumatosis. IMPRESSION: 1. Moderate to large amount of well-formed stool within the colon. 2. 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 Electronically signed by: Joel Ring M.D. 01/18/2019 11:41 AM
[2019-01-18 11:47] VITALS: BP 163/67; PULSE 88; TEMP 99.7; O2SAT 94
--- NOTE | 2019-01-18 13:46 | Discharge Summary ---
Date of Service January 18, 2019 Admission HPI Per Admitting Provider 74-year-old black male from the local [facility] who was found to have bloody stool in his depends today. He did not notice any abdominal pain or symptoms and was unaware that he had lower GI bleeding. He was sent to the ED for evaluation. Hemoglobin is 8.2 which appears to be near his baseline. This probably represents a diverticular bleed. He is hemodynamically stable. He has given consent for blood transfusion if necessary. He will be kept on a clear liquid diet and gastroenterology will be consulted. H&H will be monitored every 6 hours. Aspirin will be placed on hold Admission Exam Per Admitting Provider Constitutional: WD/WN, vitals as above Eyes: PERRL, conjunctivae normal, anicteric sclerae ENMT: external ear and nose normal, oropharynx normal Neck: trachea midline, no thyromegaly Respiratory: normal respiratory effort, lungs clear to auscultation Cardiovascular: Rate/Rhythm: regular rate and regular rhythm Heart Sounds: normal S1, normal S2 and + murmur (Grade 1/6 systolic murmur at the apex) Gastrointestinal (Abdomen): normal bowel sounds, soft, nontender, no hepatosplenomegaly Musculoskeletal: Extremities: extremities normal to inspection Skin: no rashes, warm and dry Neurologic: CN's II-XI intact bilaterally and moves all extremities; no focal motor deficits Principal Diagnosis Lower Gi Bleed Discharge Exam Eyes PERRL, conjunctivae normal, anicteric sclerae Respiratory normal respiratory effort, lungs clear to auscultation Cardiovascular RRR, no murmur, no edema Gastrointestinal (Abdomen) Inspection/Auscultation: abdomen normal to inspection Percussion/Palpation: abdomen soft; no guarding and abdomen not rigid Psychiatric A+Ox3, euthymic affect Discharge Data Allergies Allergy/AdvReac Type Severity Reaction Status Date / Time No Known Allergies Allergy Verified 01/12/19 11:39 Consultations 01/12/19 13:48 ED Decision to Admit Stat 01/12/19 17:14 Consult Gastroenterology Routine 01/15/19 21:22 Consult Nutrition Routine 01/16/19 15:44 Consult Gastroenterology Routine Procedures Performed Operation Date: 01/17/19 09:00 Actual Procedures p Esophagogastroduodenoscopy - Shilpa Eckert s Colonoscopy - Shilpa Eckert Hospital Course (1) Lower GI bleed: Mr. Emmanuel is a 74 year old male who was admitted on 12 Jan 2018 for intermittent rectal bleeding beginning day of admit. GI bleed: - Reportedly began acutely on January 12. - home aspirin discontinued - Per GI notes, last colonoscopy January 2018, noted diverticular disease. Low risk for colon cancer given he had a normal colonoscopy recently. Also has a PMHx gastric ulcer in Sep 2017 as well, healed on repeat EGD in January. Suspected bleeding was diverticular in nature. - GI consulted -> pt underwent colonoscopy and endoscopy on 01/17 -> colonoscopy -> unsatisfactory prep, stool in the entire colon. Single ulcer in rectum. Normal sphincter tone and no palpable rectal lesions. -> endoscopy -> normal esophagus, stomach and duodenum Acute blood loss anemia: - Baseline roughly 8 - Hgb 5.2 on 01/16, transfused 2 units of prbcs. Hgb has remained stable since, at 11.3 Constipation - KUB prior to d/c showed a moderate to large amount of well formed stool within the colon -> likely causing overflow incontinence - increase bowel regimen on d/c Thrombocytosis: - Admit platelets 625, improved to 457. Likely reactive from anemia / acute blood loss. Recurrent Fever - pt has had periodic, cyclical fevers -> highest temp was 38.7 C on 01/15. No fever since 01/15. - normal WCC, no localizing symptoms, bcx drawn at time of first fever on 01/13 negative - CRP elevated at 10.8 - HIV and Lyme titres negative - treponemal antibodies pending - LDH WNL. Peripheral smear consistent with acute on chronic microcytic anemia. - no indication to start abx at this time, recommend continued monitoring Dysphagia - pt reports pain/trouble with swallowing - endoscopy normal - speech eval -> no overt signs or symptoms of aspiration. Pt declined VFSS. Continue minced and moist diet w/aspiration precautions. Nasal MRSA positive: -On intake labs, same as November 2018. Hypertension, hyperlipidemia: - On metoprolol, diltiazem, lovastatin. DM2 w/diabetic neuropathy - On insulin sliding scale here. On Neurontin and nortriptyline. - glucose well controlled CKD stage 3: - Report of CKD, though creatinine normal at 0.93 Prostate adenocarcinoma: - Locally invasive. S/p hormone and radiation therapy Jul 2018 (with thrombocytopenia then). On casodex. Urinary retention, chronic indwelling Hamm catheter: On sodium bicarb, Flomax. Other medical problems: History of left heel osteomyelitis (2018), C diff carrier, Chronic left hip pain, osteoarthritis, Fatty liver. (2) Anemia: (3) Thrombocytosis: (4) MRSA nasal colonization: (5) HTN (hypertension): (6) Hyperlipidemia: (7) Diabetes: (8) Diabetic neuropathy: (9) CKD (chronic kidney disease): (10) Prostate cancer: (11) Urinary retention: (12) Indwelling Hamm catheter present: (13) Clostridium difficile carrier: (14) Chronic left hip pain: (15) Fatty liver: (16) Hypokalemia: (17) Dysphagia: (18) Acute blood loss anemia: Total Time Total Time Spent Total Time Spent (In Minutes): 35 Discharge Plan Discharge Items [facility] Reason For Visit: LOWER GI BLEED Discharge Diagnosis: Lower GI Bleed Discharge Goals: Decrease discomfort and Improve function Activity: Resume your previous activity Non-emergency contact: Primary Care Provider Call non-emergency contact if: your symptoms worsen and your temperature is above 101 Follow-up/Referrals: Jamarcus MURPHY [Primary Care Provider] - Diet: Carb Consistent or DM2 Diet Comment: Minced and moist diet Addtl Provider Instructions: Mr. Emmanuel was seen at [facility] for blood in his stools. He saw our GI team, who performed an upper and lower scope of his GI tract and did not find any obvious sources of bleeding. He was transfused two units of blood and his hemoglobin has remained stable. We do recommend stopping his aspirin, given the history of bleeding. He was seen by our speech therapists, who recommend that he have a minced and moist diet, and that he wear his dentures to eat. He was also noted to be significantly constipated prior to discharge. He has a large amount of stool in his colon, which is causing him to have overflow diarrhea. We recommend an aggressive bowel regimen to treat this, including increasing his Gavilax to twice a day, and using either a daily colace or senna to help him move his bowels. Prescriptions: Continued metoprolol succinate 100 mg Tablet Extended Release 24 Hr 100 mg PO BID RF: 0 acetaminophen [Tylenol Extra Strength] 500 mg Tablet 1,000 mg PO TID PRN (Reason: Pain) RF: 0 Lupron Depot (6 Month) 45 mg Syringe Kit 45 mg IM Q6M RF: 0 tamsulosin 0.4 mg Capsule 0.4 mg PO BID Qty: 60 RF: 0 gabapentin 300 mg Capsule 300 mg PO TID Qty: 90 RF: 0 bicalutamide 50 mg Tablet 50 mg PO DAILY RF: 0 Resource 2.0 Liquid 1 ea PO TID RF: 0 sodium bicarbonate 650 mg Tablet 650 mg PO BID RF: 0 pantoprazole 40 mg Tablet,Delayed Release (Dr/Ec) 40 mg PO BID RF: 0 diltiazem HCl 60 mg Capsule,Extended Release 12 Hr 60 mg PO BID RF: 0 lovastatin 20 mg Tablet 20 mg PO DAILY RF: 0 nortriptyline 50 mg Capsule 50 mg PO BID RF: 0 Gavilax 8.5 gram Powder In Packet 1 g PO DAILY RF: 0 Discontinued aspirin 81 mg Tablet,Chewable 81 mg PO DAILY RF: 0 Stand-Alone Forms: [facility] Discharge Orders: Discharge Order (Routine); Ordered 01/18/19 Ordered By: Shun Aviles Admission Data Admit Date/Time: 01/12/19 15:45 Attending Provider: Dora Li Admit Provider: Jason Varela Primary Care Provider: Jamarcus MURPHY Other Providers: Jason Varela ; Tim Powell ; Fe Everett ; Tammi Swift ; Maximo Zendejas ; Maribel Funez ; Claudia Cerna ; Samy Smith ; Galindo Morris ; Tien Dillon ; Lis Tsang ; Lisette Mejia ; Rodger Ramirez ; Pascual Martinez ; Deneen Draper ; Shilpa Eckert ; Kaitlynn Cardoza ; Jayda Hawley ; Lynne Ruano Service: Telemetry Other Interventions: Discharge Summary Assessment (RN) Last Done: 01/18/19 13:58 DC Date/Time DO NOT enter until pt leaves facility: 01/18/19 15:22 Supervising Physician Co-Signing Physician Notes Resident Physician Supervision Note: I independently interviewed and examined the patient and verified the mason history and physical, reviewed labs and image studies, discussed the case with the resident Dr. Aviles and agree with the findings and care plan. Time spent in discharge 40min Resident Activity Tracking Resident Involvement: Resident Care Provided Care Provided: Adult Hospital Medicine
== END 2019-01-18 15:22 | DRG 378 ==
LOC: ED 11:03 → 2S 15:45 → SUATTDRO 15:45 → 2S 16:28 → 4W 01-13 18:02 → 2S 01-16 16:20

== ENCOUNTER 2019-03-24 15:34 | Inpatient (IN) ==
[2019-03-24] MEDS ORDERED: cefTRIAXone SODIUM 1,000 MG/50 ML BAG IV STA (17:00)
[2019-03-24] MEDS ORDERED: SODIUM CHLORIDE 0.9% 1000ML 1,000 ML IV SCH (17:00)
[2019-03-24 17:25] LABS: Basophils # (auto) 0.01 K/uL (0-0.2); Basophils % (auto) 0.1 %; Eosinophils # (auto) 0.29 K/uL (0-0.5); Eosinophils % (auto) 2.5 %; Hematocrit (blood only) 24.4 % (42-52); Hemoglobin 7.6 g/dL (14.0-18.0); Immature Granulocytes # (auto) 0.04 K/uL (0.00-0.02); Immature Granulocytes % (auto) 0.3 %; Lymphocytes # (auto) 2.64 K/uL (1.2-3.4); Lymphocytes % (auto) 22.9 %; Mean Corpuscular Hgb Conc 31.1 g/dL (32-36); Mean Platelet Volume 9.2 fL (7.4-10.4); Monocytes # (auto) 1.26 K/uL (0.11-0.59); Monocytes % (auto) 10.9 %; Neutrophils # (auto) 7.29 K/uL (1.4-6.5); Neutrophils % (auto) 63.3 %; Platelet Count 509 K/uL (130-400); Red Blood Count 2.94 M/uL (4.7-6.1); White Blood Count 11.53 K/uL (4.8-10.8)
[2019-03-24 17:36] LABS: INR 1.1 (0.9-1.1); Partial Thromboplastin Ratio 1.1; Partial Thromboplastin Time 30.8 Seconds (21.0-31.0); Prothrombin Time 10.9 Seconds (9.0-12.0)
[2019-03-24 17:41] LABS: Alanine Aminotransferase < 6 U/L (12-78); Aspartate Aminotransferase 11 U/L (15-37); BUN Creatinine Ratio 12.7 (10-20); Blood Urea Nitrogen 14 mg/dl (7-18); Calcium 9.1 mg/dl (8.5-10.1); Carbon Dioxide 33 mmol/L (21-32); Chloride 106 mmol/L (98-107); Creatinine Clr Calc Pharmacy 47.6 ml/min; Est GFR (African American) 73.6; Est GFR (Non-African American) 63.5; Glucose 142 mg/dl (70-99); Potassium 3.8 mmol/L (3.5-5.1); Sodium 143 mmol/L (136-145)
[2019-03-24] MEDS ORDERED: SODIUM CHLORIDE 0.9% 250 ML IV PRN ×2 (17:41→18:59)
[2019-03-24 17:42] LABS: Hypochromasia Present; Polychromasia 1+
[2019-03-24 17:46] LABS: Albumin Globulin Ratio 0.4 (0.9-2); Alkaline Phosphatase 96 U/L (45-117); Bilirubin,Total 0.2 mg/dl (0.2-1); Globulin 5.1 gm/dl (2.5-4.0); Total Protein 7.1 gm/dl (6.4-8.2); Troponin I < 0.015 ng/ml (0-0.045)
--- NOTE | 2019-03-24 18:00 | XRay Report ---
XR chest 1V portable CLINICAL HISTORY: 74 years-old Male presenting with ams. TECHNIQUE: Portable upright AP view of the chest was obtained. COMPARISON: 01/20/2019. FINDINGS: Right internal jugular tunneled central venous catheter terminates in the lower SVC. Atherosclerosis of the aortic arch. Cardiac silhouette normal in size. Elevation of right hemidiaphragm. No focal opa city. No large effusion or pneumothorax. Osseous structures normal. Gaseous distention of bowel. IMPRESSION: 1. No acute cardiopulmonary disease. Electronically signed by: Suman Cope M.D. 03/24/2019 5:59 PM
[2019-03-24] MEDS ORDERED: FAMOTIDINE 20MG IV PUSH 20 MG/5 ML SYR IV STA (19:02)
--- NOTE | 2019-03-24 21:52 | History & Physical Report ---
Date of Service March 24, 2019 Assessment & Plan (1) GI bleed: 74-year-old male with history of recurrent GI bleed (noted to have rectal ulcer on colonoscopy on 01/17/2019, EGD at that time was normal), hypertension heart, hyperlipidemia, DM 2 with neuropathy, CKD 3, prostate cancer, urinary r etention, chronic constipation presents to the emergency room with concern of low hemoglobin and bright red blood with bowel movement from retirement. Reports straining with bowel movements, history of chronic constipation, lightheadedness, shortness of breath, and epigastric abdominal pain. Hx of recent admission and discharge on 01/18 for lower GI bleed. Lower GI bleed: - Bright red blood with stools (soft now, pt unsure if dark as does not see them) - Hemoccult-positive - Hemoglobin down to 7.6 from 11.5 on 01/20/19 - Colonoscopy previous hospitalization 01/17/2019 concerning for rectal ulcer, EGD on 01/17/2019 was normal - Colonoscopy January 2018, noted diverticular disease - Started on Pepcid IV twice daily, Rocephin - Continue home bowel regimen - GI consulted Acute blood loss anemia: - Hemoglobin down to 7.6 from 11.5 on 01/20/19 - Transfused 2 units of prbcs - Trend hemoglobin every 6 hours and transfuse for hemoglobin less than 7 History of constipation -Continue bowel regimen and provide as needed Thrombocytosis: Likely reactive from anemia / acute blood loss. - Platelet previous admission 457 elevated to 509 (likely some hemoconcentration as well) Mild white blood cell count elevation - White blood cell count 11.5 -likely hemoconcentrated sample - Afebrile -Chest x-ray negative - Monitor CBC Hypertension, hyperlipidemia: - On metoprolol, diltiazem, lovastatin DM2 w/diabetic neuropathy - On insulin sliding scale here. On gabapentin and nortriptyline. - glucose well controlled CKD stage 3: - Report of CKD, though creatinine normal at 1.1 and GFR 73 Prostate adenocarcinoma: - Locally invasive. S/p hormone and radiation therapy Jul 2018 (with thrombocytopenia then). On casodex. Urinary retention, chronic indwelling Hamm catheter: On sodium bicarb, Flomax. Other medical problems: History of left heel osteomyelitis (2018), C diff carrier, Chronic left hip pain, osteoarthritis, Fatty liver. FEN/GI: NPO for possible procedure, LR at 100cc/hr DVT prop: SCDs, chemical contraindicated Code: DNR/DNI per records Dispo: PCU telemetry (2) Indwelling Hamm catheter present: (3) Prostate cancer: (4) Thrombocytosis: (5) Hyperlipidemia: (6) Diabetic neuropathy: (7) Urinary retention: (8) CKD (chronic kidney disease): (9) Diabetes: (10) HTN (hypertension): (11) Anemia: History of Present Illness Chief Complaint: GI Bleed Primary Care Provider: KATHERINE Ricketts 74-year-old male with history of recurrent GI bleed (noted to have rectal ulcer on colonoscopy on 01/17/2019, EGD at that time was normal), hypertension heart, hyperlipidemia, DM 2 with neuropathy, CKD 3, prostate cancer, urinary retention, chronic constipation presents to the emergency room with concern of low hemoglobin and bright red blood with bowel movement from retirement. Patient poor historian. Patient is bedbound and gets cleaned in bed and this has not noticed bowel movements but per guards bright red blood noted with stools. Reports lightheadedness, shortness of breath, epigastric abdominal pain straining with bowel movements. Denies any fever, chills, chest pain, nausea, vomiting, diarrhea, dysuria. Patient has chronic Hamm and no blood noted. ED course: Afebrile, heart rate increased to [id number], patient was hypertensive. Found to have hemoglobin of 7.6 which is down from 11.2 previous admission January 20, 2019. White blood cell count 11.5 and platelets 509 (likely hemoconcentrated, patient has history of thrombocytosis but appears to be more elevated than baseline). Hemoccult-positive. Chest x-ray negative. Allergies Allergy/AdvReac Type Severity Reaction Status Date / Time No Known Allergies Allergy Verified 03/24/19 15:53 Home Medications Home Medications Medication Instructions Recorded Confirmed Type Lupron Depot (6 Month) 45 mg IM Q6M 12/10/18 03/24/19 History acetaminophen [Tylenol Extra 1,000 mg PO TID PRN 12/10/18 03/24/19 History Strength] tamsulosin 0.4 mg PO BID #60 cap 12/19/18 03/24/19 Rx Resource 2.0 1 ea PO TID 01/12/19 03/24/19 History diltiazem HCl 60 mg PO BID 01/12/19 03/24/19 History lovastatin 20 mg PO HS 01/12/19 03/24/19 History nortriptyline 50 mg PO BID 01/12/19 03/24/19 History pantoprazole 40 mg PO BID 01/12/19 03/24/19 History sodium bicarbonate 650 mg PO BID 01/12/19 03/24/19 History metoprolol tartrate [Lopressor] 100 mg PO BID 01/20/19 03/24/19 History polyethylene glycol 3350 [Miralax] 17 g PO QAM 01/20/19 03/24/19 History bicalutamide 50 mg PO DAILY 02/24/19 03/24/19 History loperamide [Imodium A-D] 2 mg PO TID PRN 02/24/19 03/24/19 History sennosides [senna] 8.6 mg PO BID 02/24/19 03/24/19 History gabapentin 400 mg PO TID 03/24/19 03/24/19 History morphine 2 mg IV QID PRN 03/24/19 03/24/19 History Past Med/Surg History Medical History Lower GI bleed (Acute) SONY (acute kidney injury) (Acute) CKD (chronic kidney disease) Diabetes HTN (hypertension) Anemia Alzheimer disease (Acute) 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 Chronic left hip pain (Acute) Gastroesophageal reflux (Acute) History of constipation (Acute) History of urinary retention (Acute) Indwelling Hamm catheter present (Acute) Neuropathy (Acute) Prostate cancer (Acute) Urinary retention (Acute) Allergic rhinitis (Chronic) Diabetes mellitus (Chronic) Diabetic neuropathy (Chronic) Diverticulosis (Chronic) H/O type A viral hepatitis (Chronic) Hyperlipidemia (Chronic) Hypertension (Chronic) Iron deficiency anemia (Chronic) Liver disease (Chronic) Weight loss (Chronic) H/O osteomyelitis (Resolved) Surgical History H/O oral surgery History of esophagogastroduodenoscopy (EGD) Family History Sister , Unknown age at ;Kidney failure;Cancer in "her leg" No problems noted. Father , unknown age of Prostate Cancer No problems noted. Mother , unknown age from fall & injuring head No problems noted. Son No problems noted. Sister No problems noted. Sister No problems noted. Social History Preferred Language: [place] Communication Ability: Unable Visual Impairment: No Limitations Hearing Ability: Normal [employer]work Specialist Required: No Beliefs That Will Affect Care: None Current Living Situation: Other Current Living Situation Comment: [facility] inmate; correctional facility Other Information That Helps Us Care for You: No Feels Safe at Home: Yes Smoking Status: Unknown if ever smoked Hx Alcohol Use: No Hx Substance Use: No during the past year weight has: increased > 10 lbs Review of Systems Review of Systems: As per HPI Physical Exam Physical Exam: General: In NAD HEENT: very dry mucous membranes Pulm: CTAB equal breath sounds bilaterally CV: Tachycardic, regular rhythm, no m/r/g Abdomen:+BS, no TTP in all quadrants, non-distended LE: no LE edema, no calf TTP Results & Data Vital Signs (Past 12 Hours) Vital Signs Temp Pulse Pulse Resp BP BP Pulse Ox 03/24/19 21:48 37.1 C 107 H 18 158/94 H 93 03/24/19 21:38 141 H 18 178/160 H 93 03/24/19 21:27 37.3 C 118 H 16 166/89 H 100 03/24/19 20:00 119 H 20 145/87 H 99 03/24/19 19:45 119 H 20 136/77 99 03/24/19 19:31 37.4 C 117 H 16 150/79 H 96 03/24/19 19:16 37.8 C H 118 H 17 134/88 93 03/24/19 19:01 37.0 C 123 H 17 137/68 100 03/24/19 18:38 37.2 C 120 H 120 H 17 109/79 109/79 100 03/24/19 18:00 117 H 16 138/68 100 03/24/19 17:55 113 H 16 100 03/24/19 17:20 114 H 16 142/83 H 95 03/24/19 15:38 36.9 C 115 H 20 114/76 100 Code Status & VTE Plan Code Status DNR/DNI VTE Prophylaxis Plan VTE Prophylaxis will be ordered: Yes Supervising Physician Co-Signing Physician Notes Attending addendum: I have physically seen this patient, have supervised the medical residents activities, and agree with the H&P unless as otherwise noted. Assessment and Plan: Lower GI bleed/bright red blood per rectum/anemia- NPO to monitored bed. Normal EGD 01/17/2019. Colonoscopy 01/2018 with diverticular disease. Colonoscopy during hospitalization 01/17/2019 with possible rectal ulcer. Hemoglobin of 7.6, down from 11.5 on 01/20/2019. Transfuse 2 units PRBCs, already begun in the ED. H&H every 6 hours. Famotidine 20 mg IV every 12 hours. Ceftriaxone 1 g IV daily. Zofran 4 mg IV every 6 hours as needed Consult gastroenterology. Remainder of orders and notations as noted. PG Care Time/CCT Total # of Minutes Spent Total Time Spent with Patient: Total time spent is greater than 50% in coordination of care (as documented) at patient's floor/unit and/or counseling patient: Resident Activity Tracking Resident Involvement: Resident Care Provided Care Provided: Adult Hospital Medicine (1) GI bleed GI bleed type/associated pathology: unspecified gastrointestinal hemorrhage type Qualified Code(s): K92.2 - Gastrointestinal hemorrhage, unspecified
--- NOTE | 2019-03-24 22:32 | Emergency Department Note ---
Entered by Randy Calle acting as a scribe for Maximo Valdes DO History of Present Illness General Chief complaint: Illness Source: patient History of Present Illness Onset (ago): hour(s) 8 Location: head (illness) Pain Consistency: + other (worsening) Maximum Pain Intensity: 0 Exacerbated By: + none Associated symptoms: + denies other symptoms (diarrhea, abdominal pain) and + other (chronic knee pain); no chest pain, no nausea/vomiting and no shortness of breath The patient is a 74 year-old M w/ PMHx of prostate cancer, BPH, PNA, and sepsis who presents to the ED w/ CC of a worsening illness beginning 8 hours ago. The patient is a prisoner at [facility]. The patient states that he is in the ED today due to a lowered blood count. He adds that his hemoglobin level is 5.0. He notes that he had a bowel movement yesterday which was bloody. He states that he currently has knee pain, but notes that it is chronic. He denies that he is currently experiencing chest pain, nausea, vomiting, diarrhea, shortness of breath and abdominal pain. He also denies that he [facility] oxygen at [facility]. He states that he is in the ED today for a transfusion. Discussed with the [facility] physician who notes that this gentleman has had a decline over the past 2 weeks. He has a known diverticular bleed and has been getting transfusions as he is a stage IV prostate cancer. He currently only wants antibiotics and blood transfusions at this time. He is a DNR/DNI. Home Medications Home Medications Medication Instructions Recorded Confirmed Type Lupron Depot (6 Month) 45 mg IM Q6M 12/10/18 03/24/19 History acetaminophen [Tylenol Extra 1,000 mg PO TID PRN 12/10/18 03/24/19 History Strength] tamsulosin 0.4 mg PO BID #60 cap 12/19/18 03/24/19 Rx Resource 2.0 1 ea PO TID 01/12/19 03/24/19 History diltiazem HCl 60 mg PO BID 01/12/19 03/24/19 History lovastatin 20 mg PO HS 01/12/19 03/24/19 History nortriptyline 50 mg PO BID 01/12/19 03/24/19 History pantoprazole 40 mg PO BID 01/12/19 03/24/19 History sodium bicarbonate 650 mg PO BID 01/12/19 03/24/19 History metoprolol tartrate [Lopressor] 100 mg PO BID 01/20/19 03/24/19 History polyethylene glycol 3350 [Miralax] 17 g PO QAM 01/20/19 03/24/19 History bicalutamide 50 mg PO DAILY 02/24/19 03/24/19 History loperamide [Imodium A-D] 2 mg PO TID PRN 02/24/19 03/24/19 History sennosides [senna] 8.6 mg PO BID 02/24/19 03/24/19 History gabapentin 400 mg PO TID 03/24/19 03/24/19 History morphine 2 mg IV QID PRN 03/24/19 03/24/19 History Allergies Allergy/AdvReac Type Severity Reaction Status Date / Time No Known Allergies Allergy Verified 03/24/19 15:53 Past Med/Surg History Social History Preferred Language: Somali Communication Ability: Effective Visual Impairment: No Limitations Hearing Ability: Normal Upkeep Worker Required: No Beliefs That Will Affect Care: None Current Living Situation: Other Current Living Situation Comment: [facility] inmate; correctional facility Feels Safe at Home: Yes Smoking Status: Former smoker Tobacco Type: cigarettes ; Cigarettes Per Day: Less than 1/2 PPD when he smoked ; Second Hand Exposure: No ; Hx Alcohol Use: No Hx Substance Use: No during the past year weight has: increased > 10 lbs Review of Systems See HPI for pertinent positives & negatives. and A total of 10 systems reviewed and were otherwise negative Physical Exam Vital Signs Vital Signs - 24 hr 03/24/19 15:38 03/24/19 17:20 03/24/19 17:55 Temperature 36.9 C Temperature Source Oral Sepsis Recent Fever Within 48 Hours No Sepsis Action Taken by Nursing No Action Required Pulse Rate 115 H Pulse Rate [Apical] 114 H 113 H Pulse Rhythm Regular Pulse Rhythm [Apical] Regular Pulse Strength Normal Respiratory Rate 20 16 16 Respiratory Effort / Characteristics Non-Labored Spontaneous Non-Labored Spontaneous Respiratory Depth Normal Normal Respiratory Pattern Regular Regular Blood Pressure 114/76 Blood Pressure [Right Arm] 142/83 H Blood Pressure Mean 88 Blood Pressure Mean [Right Arm] 102 Blood Pressure Position Pulse Oximetry 100 95 100 Oxygen Delivery Method Nasal Cannula Room Air Nasal Cannula Oxygen Flow Rate 4 3 03/24/19 18:00 03/24/19 18:38 03/24/19 19:01 Temperature 37.2 C 37.0 C Temperature Source Oral Oral Sepsis Recent Fever Within 48 Hours Sepsis Action Taken by Nursing Pulse Rate 120 H 123 H Pulse Rate [Apical] 117 H 120 H Pulse Rhythm Regular Pulse Rhythm [Apical] Regular Regular Pulse Strength Respiratory Rate 16 17 17 Respiratory Effort / Characteristics Spontaneous Non-Labored Spontaneous Respiratory Depth Normal Normal Respiratory Pattern Regular Regular Blood Pressure 109/79 137/68 Blood Pressure [Right Arm] 138/68 109/79 Blood Pressure Mean 89 91 Blood Pressure Mean [Right Arm] 91 89 Blood Pressure Position Lying Pulse Oximetry 100 100 100 Oxygen Delivery Method Nasal Cannula Nasal Cannula Oxygen Flow Rate 3 3 3 03/24/19 19:16 03/24/19 19:31 03/24/19 19:45 Temperature 37.8 C H 37.4 C Temperature Source Oral Oral Sepsis Recent Fever Within 48 Hours Sepsis Action Taken by Nursing Pulse Rate 118 H 117 H 119 H Pulse Rate [Apical] Pulse Rhythm Pulse Rhythm [Apical] Pulse Strength Respiratory Rate 17 16 20 Respiratory Effort / Characteristics Respiratory Depth Respiratory Pattern Blood Pressure 134/88 150/79 H 136/77 Blood Pressure [Right Arm] Blood Pressure Mean 103 102 96 Blood Pressure Mean [Right Arm] Blood Pressure Position Pulse Oximetry 93 96 99 Oxygen Delivery Method Oxygen Flow Rate 3 3 2 03/24/19 20:00 03/24/19 21:27 03/24/19 21:38 Temperature 37.3 C Temperature Source Oral Sepsis Recent Fever Within 48 Hours Sepsis Action Taken by Nursing Pulse Rate 118 H 141 H Pulse Rate [Apical] 119 H Pulse Rhythm Pulse Rhythm [Apical] Pulse Strength Respiratory Rate 20 16 18 Respiratory Effort / Characteristics Respiratory Depth Respiratory Pattern Blood Pressure 166/89 H 178/160 H Blood Pressure [Right Arm] 145/87 H Blood Pressure Mean 114 166 Blood Pressure Mean [Right Arm] 106 Blood Pressure Position Pulse Oximetry 99 100 93 Oxygen Delivery Method Nasal Cannula Oxygen Flow Rate 2 2 2 GENERAL: Laying down in bed, chronically-ill appearing, cachectic, on nasal cannula. EYE EXAM: normal conjunctiva, PERRL and EOM's grossly intact OROPHARYNX: no exudate, no erythema, lips, buccal mucosa, and tongue normal and mucous membranes are moist NECK: supple, no nuchal rigidity, no adenopathy, non-tender LUNGS: Clear to auscultation. Normal chest wall mechanics HEART: no murmurs, S1 normal and S2 normal ABDOMEN: abdomen soft, non-tender, normo-active bowel sounds, no masses, no rebound or guarding. : Hamm in place. BACK: Back is symmetrical on inspection and there is no deformity, no midline tenderness, no CVA tenderness. SKIN: no rashes and no bruising UPPER EXTREMITIES: upper extremities are grossly normal. LOWER EXTREMITIES: No pitting edema. NEURO EXAM: Awake, disoriented to place and year, cranial nerves II-XII grossly intact, normal speech. Course ED COURSE: Vital signs were reviewed and showed hypertension and tachycardia. The patients medical record was reviewed The above diagnostic studies were performed and reviewed. ED treatments and interventions as stated above. 1657: The patient was evaluated in room D3B. A complete history and physical examination was performed. 1704: I reviewed the patient's case with the doctor at [facility]. 1740: I reviewed the patient's case with VANDANA Meyer [facility]. Mitch notes that the patient has declined over the past two weeks. The patient is DNR and DNI. The patient does not want anything other than blood and IV antibiotics. No additional workup is needed. He states that the patient should get blood and be sent back to senior living. 1849: I updated the patient and obtained conset for a blood transfusion. 1858: I reviewed the patient's case with the patient's physician. He thinks that the patient should stay here, The patient has large amount of blood rectally. 190: I reviewed the patient's case with Dr. Guzman Campbell, [facility] Hospitalist. He will evaluate the patient for further management. 190: Upon reevaluation, the patient is doing no better. I discussed my findings with the patient and he understands and agrees with the treatment plan. Based on the patients age, coexisting illnesses, exam and lab findings the decision to treat as an [inpatient][outpatient] was made. The patient remained stable while under my care. [The patient appeared well at the time of discharge.] [The patient will be evaluated for further management.] Consultations Consultation #1: I reviewed the patient's case with the doctor at [facility]. Time: 17:04 Consultation #2: I reviewed the patient's case with VANDANA Meyer [facility]. Mitch notes that the patient has declined over the past two weeks. The patient is DNR and DNI. The patient does not want anything other than blood and IV antibiotics. No additional workup is needed. He states that the patient should get blood and be sent back to senior living. Time: 17:40 Consultation #3: I reviewed the patient's case with the patient's physician. He thinks that the patient should stay here, The patient has large amount of blood rectally. Time: 18:58 Additional Consultation(s): 1902: I reviewed the patient's case with Dr. Guzman Campbell, [facility] Hospitalist. He will evaluate the patient for further management. Administered Medications Diltiazem HCl (Cardizem Sr) 60 mg PO BID NEIL Stop: 04/23/19 22:14 Last Admin: 03/24/19 23:22 Dose: 60 mg Documented by: [id number] Sodium Chloride (Nss 1000ml) 1,000 mls @ 100 mls/hr IV .Q10H NEIL Stop: 03/25/19 02:59 Last Admin: 03/24/19 17:17 Dose: 100 mls/hr Documented by: [id number] Nortriptyline HCl (Pamelor) 50 mg PO BID NEIL Stop: 04/23/19 22:56 Last Admin: 03/24/19 23:31 Dose: 50 mg Documented by: [id number] Sodium Bicarbonate (Sodium Bicarbonate) 650 mg PO BID NEIL Stop: 04/23/19 22:56 Last Admin: 03/24/19 23:31 Dose: 650 mg Documented by: [id number] Tamsulosin HCl (Flomax) 0.4 mg PO BID NEIL Stop: 04/23/19 22:56 Last Admin: 03/24/19 23:23 Dose: 0.4 mg Documented by: [id number] Discontinued Medications Ceftriaxone Sodium (Rocephin) 1,000 mg in 50 mls @ 100 mls/hr IV NOW STA Stop: 03/24/19 17:29 Last Infusion: 03/24/19 17:49 Dose: 0 mls/hr Documented by: [id number] Admin: 03/24/19 17:19 Dose: 100 mls/hr Documented by: [id number] Famotidine (Pepcid 20mg Iv Push) 20 mg in 5 mls @ 2.5 mls/min IV NOW STA Stop: 03/24/19 19:03 Last Admin: 03/24/19 20:41 Dose: 2.5 mls/min Documented by: [id number] Medical Decision Making Differential Diagnosis Differential diagnosis includes etiologies such as diverticulitis, diverticulosis, AVM, coagulopathy, colitis, inflammatory bowel disease, malignancy, Amisha-Callahan tear, esophagitis, peptic ulcer disease, variceal bleed, gastritis, epistaxis, fissure, hemorrhoids, as well as others were entertained. Medical Records Attestation: I reviewed the patient's medical records. Home Medications Current Medication List: was personally reviewed by me Laboratory Data Attestation: I reviewed the patient's lab results. Result diagrams: 03/24/19 17:11 03/24/19 17:11 Lab Results 03/24/19 03/24/19 03/24/19 Range/Units 17:11 17:11 17:11 WBC 11.53 H (4.8-10.8) K/uL RBC 2.94 L (4.7-6.1) M/uL Hgb 7.6 L (14.0-18.0) g/dL Hct 24.4 L (42-52) % MCV 83.0 (80-100) fL MCH 25.9 (25-34) pg MCHC 31.1 L (32-36) g/dL RDW Std Deviation 55.0 H (36.4-46.3) fL RDW Coeff of Meaghan 18.0 H (11.5-14.5) % Plt Count 509 H (130-400) K/uL MPV 9.2 (7.4-10.4) fL Immature Gran % (Auto) 0.3 % Neut % (Auto) 63.3 % Lymph % (Auto) 22.9 % [place] % (Auto) 10.9 % Eos % (Auto) 2.5 % Baso % (Auto) 0.1 % Immature Gran # (Auto) 0.04 H (0.00-0.02) K/uL Neut # (Auto) 7.29 H (1.4-6.5) K/uL Lymph # (Auto) 2.64 (1.2-3.4) K/uL [place] # (Auto) 1.26 H (0.11-0.59) K/uL Eos # (Auto) 0.29 (0-0.5) K/uL Baso # (Auto) 0.01 (0-0.2) K/uL Polychromasia 1+ Hypochromasia Present PT 10.9 (9.0-12.0) Seconds INR 1.1 (0.9-1.1) APTT 30.8 (21.0-31.0) Seconds PTT Ratio 1.1 Sodium 143 (136-145) mmol/L Potassium 3.8 (3.5-5.1) mmol/L Chloride 106 (98-107) mmol/L Carbon Dioxide 33 H (21-32) mmol/L Anion Gap 4.0 (3-11) BUN 14 (7-18) mg/dl Creatinine 1.12 (0.6-1.4) mg/dl Est Cr Clr Drug Dosing 47.6 ml/min Est GFR ( Amer) 73.6 Est GFR (Non-Af Amer) 63.5 BUN/Creatinine Ratio 12.7 (10-20) Glucose 142 H (70-99) mg/dl Calcium 9.1 (8.5-10.1) mg/dl Total Bilirubin 0.2 (0.2-1) mg/dl AST 11 L (15-37) U/L ALT < 6 L (12-78) U/L Alkaline Phosphatase 96 (45-117) U/L Troponin I < 0.015 (0-0.045) ng/ml Total Protein 7.1 (6.4-8.2) gm/dl Albumin 2.0 L (3.4-5.0) gm/dl Globulin 5.1 H (2.5-4.0) gm/dl Albumin/Globulin Ratio 0.4 L (0.9-2) POC Stool Occult Blood (Negative) Blood Type Antibody Screen Crossmatch 03/24/19 03/24/19 Range/Units 17:11 18:53 WBC (4.8-10.8) K/uL RBC (4.7-6.1) M/uL Hgb (14.0-18.0) g/dL Hct (42-52) % MCV (80-100) fL MCH (25-34) pg MCHC (32-36) g/dL RDW Std Deviation (36.4-46.3) fL RDW Coeff of Meaghan (11.5-14.5) % Plt Count (130-400) K/uL MPV (7.4-10.4) fL Immature Gran % (Auto) % Neut % (Auto) % Lymph % (Auto) % [place] % (Auto) % Eos % (Auto) % Baso % (Auto) % Immature Gran # (Auto) (0.00-0.02) K/uL Neut # (Auto) (1.4-6.5) K/uL Lymph # (Auto) (1.2-3.4) K/uL [place] # (Auto) (0.11-0.59) K/uL Eos # (Auto) (0-0.5) K/uL Baso # (Auto) (0-0.2) K/uL Polychromasia Hypochromasia PT (9.0-12.0) Seconds INR (0.9-1.1) APTT (21.0-31.0) Seconds PTT Ratio Sodium (136-145) mmol/L Potassium (3.5-5.1) mmol/L Chloride (98-107) mmol/L Carbon Dioxide (21-32) mmol/L Anion Gap (3-11) BUN (7-18) mg/dl Creatinine (0.6-1.4) mg/dl Est Cr Clr Drug Dosing ml/min Est GFR ( Amer) Est GFR (Non-Af Amer) BUN/Creatinine Ratio (10-20) Glucose (70-99) mg/dl Calcium (8.5-10.1) mg/dl Total Bilirubin (0.2-1) mg/dl AST (15-37) U/L ALT (12-78) U/L Alkaline Phosphatase (45-117) U/L Troponin I (0-0.045) ng/ml Total Protein (6.4-8.2) gm/dl Albumin (3.4-5.0) gm/dl Globulin (2.5-4.0) gm/dl Albumin/Globulin Ratio (0.9-2) POC Stool Occult Blood Positive A (Negative) Blood Type B Positive Antibody Screen NEGATIVE Crossmatch See Detail Imaging Data Radiologist's Impression: Radiology results as stated below per my review and the radiologist's interpretation: XR chest 1V portable CLINICAL HISTORY: 74 years-old Male presenting with ams. TECHNIQUE: Portable upright AP view of the chest was obtained. COMPARISON: 01/20/2019. FINDINGS: Right internal jugular tunneled central venous catheter terminates in the lower SVC. Atherosclerosis of the aortic arch. Cardiac silhouette normal in size. Elevation of right hemidiaphragm. No focal opacity. No large effusion or pneumothorax. Osseous structures normal. Gaseous distention of bowel. IMPRESSION: 1. No acute cardiopulmonary disease. Electronically signed by: Suman Cope M.D. 03/24/2019 5:59 PM Blood Pressure Blood Pressure Findings: Elevated blood pressure Blood Pressure Disposition: further management by hospitalist KATALINA Narrative Patient is a 74-year-old male with a past medical history of stage IV prostate cancer, C. difficile gastric ulcer and diverticulitis who [facility] for tachycardia with a heart rate in the 120s associate with a hemoglobin of 7.9. IV was established blood work was obtained and showed mild leukocytosis of 11.5 thousand. Hemoglobin was 7.6 here. INR was unremarkable. BMP along with LFTs bilirubin and troponin was negative. Patient had an extensive large bloody bowel movement. Discussed with the [facility] PA who notes that the patient is a DNR/DNI and has become more confused and weak over the p ast 2 weeks. Patient is agreeable to blood products and antibiotics. Initially attempted to send him home but after the large bloody bowel movement felt it was most appropriate to keep him here and give him additional blood products. He was ordered for 3 units of PRBCs while in the ER. He was monitored closely and admitted to the hospitalist for further work-up. Impression & Plan GI bleed, Symptomatic anemia, Tachycardia Critical Care Time Critical Care Time: Yes Total Critical Care Time: 30 I have personally spent 30 minutes of critical care time in the direct management of this patient. This includes bedside care, interpretation of diag nostic studies, and testing, discussion with consultants, patient, and family members, and other required patient management activities. This 30 minutes is in excess of all separately billable procedures. Discharge Plan Visit Data *Final* Discharge Date/Time: 03/24/19 22:16 Chief Complaint: Illness ED Provider: Maximo Valdes Discharge Problem: GI bleed, Symptomatic anemia, Tachycardia Patient Disposition: Admitted As Inpatient Discharge Instructions Interventions: ED Discharge Assessment Last Done: 03/24/19 22:16 Discharge Problem: GI bleed Qualifiers: GI bleed type/associated pathology: unspecified gastrointestinal hemorrhage type Qualified Code(s): K92.2 - Gastrointestinal hemorrhage, unspecified The scribe's documentation has been prepared under my direction and personally reviewed by me in its entirety. I confirm that the note above accurately refl ects all work, treatment, procedures, and medical decision making performed by me.
[2019-03-24] MEDS ORDERED: LEUPROLIDE ACETATE 45 MG IM SCH (22:57)
[2019-03-24] MEDS ORDERED: MoRPHine SULFATE 2 MG/ML CARP IV PRN (22:57)
[2019-03-24] MEDS ORDERED: ACETAMINOPHEN 500 MG TAB PO PRN (22:57)
[2019-03-24] MEDS ORDERED: LOPERAMIDE HCL 2 MG CAP PO PRN (22:57)
[2019-03-24] MEDS: TAMSULOSIN HCL 0.4 MG CAP PO SCH (23:23)
[2019-03-24] MEDS: NORTRIPTYLINE HCL 25 MG CAP PO SCH (23:31)
[2019-03-24] MEDS: SODIUM BICARBONATE 650 MG TAB PO SCH (23:31)
[2019-03-25 02:02] LABS: Appearance Urine Turbid (Clear); Bacteria Urine Automated 3+ (Negative); Bilirubin Urine Negative (Negative); Blood Urine 1+ (Negative); Color Urine Yellow; Epithelial Cell Urine Auto >30 /lpf (0-5); Glucose Urine UA Negative (Negative); Ketones Urine Negative (Negative); Leukocyte Esterase Urine 3+ (Negative); Nitrite Urine Negative (Negative); Protein Urine 1+ (Negative); Specific Gravity Urine 1.016 (1.000-1.030); Urobilinogen Urine Negative (Negative); WBC Urine Automated >30 /hpf (0-5)
[2019-03-25 02:22] LABS: Cast Urine Automated 0 /lpf (0-5)
[2019-03-25] MEDS ORDERED: METOPROLOL TARTRATE 1 MG/ML VIAL IV STA (02:41)
[2019-03-25] MEDS ORDERED: METOPROLOL TARTRATE 1 MG/ML VIAL IV ONE (02:55)
[2019-03-25] MEDS: LACTATED RINGER'S 1,000 ML IV SCH ×2 (03:02→10:19)
[2019-03-25] MEDS: INSULIN ASPART 100 UNITS/ML 3 ML PEN SC SCH ×4 (07:59→21:56)
[2019-03-25] MEDS ORDERED: FAMOTIDINE 20 MG in SYRINGE 3 ML IV SCH (09:00)
[2019-03-25] MEDS ORDERED: NUTRITIONAL SUPPLEMENTS PO SCH (09:00)
--- NOTE | 2019-03-25 10:09 | Gastrointestinal Consultation ---
Date of Consultation March 25, 2019 History of Present Illness Attending Physician: Maximo Zendejas DO Source: pt, chart. Pt is a vague historian, providing only one or two word answers to questions. 74 yo M with h/o prostate ca s/p XRT and hormonal rx, s/p hosp in December and January for GIB with bleeding scan concerning for bleeding in rectosigmoid, unremarkable EGD and cscopy with inadequate prep, stool in colon without blood, and rectal ulcer. He now returns to hospital for report of rectal bleeding that occurred after straining due to constipation. On admit, he was tachy but normotensive, Hgb 7.6 from 11's in January with normal MCV, BUN WNL. Overnight, pt tells me that he cont to have rectal bleeding but cannot specify quantity or frequency; he has remained normotensive but sinus tachy low 100's; Hgb lorne to 15 after 2 units. See below for PE. A/P: GIB - I suspect that he has bleeding related to SRUS, or XRT proctitis. I suspect that his tachy is unrelated to his GIB. His hgb lorne dramatically after x fusion - rec echeck and xfuse for goal hgb 7-8. I doubt that he will follow a cscopy prep; he refused this in January -- because his bleeding source is likely distal, can consider flex sig if bleeding continues. Sinus tach -defer to hospitalist for further w/u; they are aware of this issue. Allergies Allergy/AdvReac Type Severity Reaction Status Date / Time No Known Allergies Allergy Verified 03/24/19 15:53 Home Medications Home Medications Medication Instructions Recorded Confirmed Type Lupron Depot (6 Month) 45 mg IM Q6M 12/10/18 03/24/19 History acetaminophen [Tylenol Extra 1,000 mg PO TID PRN 12/10/18 03/24/19 History Strength] tamsulosin 0.4 mg PO BID #60 cap 12/19/18 03/24/19 Rx Resource 2.0 1 ea PO TID 01/12/19 03/24/19 History diltiazem HCl 60 mg PO BID 01/12/19 03/24/19 History lovastatin 20 mg PO HS 01/12/19 03/24/19 History nortriptyline 50 mg PO BID 01/12/19 03/24/19 History pantoprazole 40 mg PO BID 01/12/19 03/24/19 History sodium bicarbonate 650 mg PO BID 01/12/19 03/24/19 History metoprolol tartrate [Lopressor] 100 mg PO BID 01/20/19 03/24/19 History polyethylene glycol 3350 [Miralax] 17 g PO QAM 01/20/19 03/24/19 History bicalutamide 50 mg PO DAILY 02/24/19 03/24/19 History loperamide [Imodium A-D] 2 mg PO TID PRN 02/24/19 03/24/19 History sennosides [senna] 8.6 mg PO BID 02/24/19 03/24/19 History gabapentin 400 mg PO TID 03/24/19 03/24/19 History morphine 2 mg IV QID PRN 03/24/19 03/24/19 History Patient History Medical History Lower GI bleed (Acute) SONY (acute kidney injury) (Acute) CKD (chronic kidney disease) Diabetes HTN (hypertension) Anemia Alzheimer disease (Acute) 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 Chronic left hip pain (Acute) Gastroesophageal reflux (Acute) History of constipation (Acute) History of urinary retention (Acute) Indwelling Hamm catheter present (Acute) Neuropathy (Acute) Prostate cancer (Acute) Urinary retention (Acute) Allergic rhinitis (Chronic) Diabetes mellitus (Chronic) Diabetic neuropathy (Chronic) Diverticulosis (Chronic) H/O type A viral hepatitis (Chronic) Hyperlipidemia (Chronic) Hypertension (Chronic) Iron deficiency anemia (Chronic) Liver disease (Chronic) Weight loss (Chronic) H/O osteomyelitis (Resolved) Surgical History H/O oral surgery History of esophagogastroduodenoscopy (EGD) Family History Sister , Unknown age at ;Kidney failure;Cancer in "her leg" No problems noted. Father , unknown age of Prostate Cancer No problems noted. Mother , unknown age from fall & injuring head No problems noted. Son No problems noted. Sister No problems noted. Sister No problems noted. Social History Preferred Language: Maldivian Communication Ability: Unable Visual Impairment: No Limitations Hearing Ability: Normal Vice Chairman Required: No Beliefs That Will Affect Care: None Current Living Situation: Other Current Living Situation Comment: [facility] inmate; correctional facility Other Information That Helps Us Care for You: No Feels Safe at Home: Yes Smoking Status: Unknown if ever smoked Hx Alcohol Use: No Hx Substance Use: No during the past year weight has: increased > 10 lbs Physical Exam Physical Exam: Cachectic, comfortable. Respiratory: normal respiratory effort, lungs clear to auscultation normal respiratory effort Cardiovascular: RRR, no murmur, no edema Gastrointestinal (Abdomen): normal bowel sounds, soft, nontender, no hepatosplenomegaly Percussion/Palpation: abdomen soft Rectal exam without blood or stool Results & Data Vital Signs (Past 12 Hours) Vital Signs Temp Pulse Pulse Resp BP BP Pulse Ox 03/25/19 07:47 37.9 C H 117 H 18 113/68 100 03/25/19 05:28 116 H 141/73 H 99 03/25/19 03:21 128 H 03/25/19 03:02 119 H 128/71 03/25/19 03:00 37.5 C 118 H 16 128/71 100 03/25/19 02:29 37.8 C H 120 H 16 138/74 100 03/25/19 02:00 120 H 16 148/75 H 100 03/25/19 01:30 36.8 C 129 H 12 140/78 100 03/25/19 01:06 37.2 C 133 H 22 147/80 H 100 03/25/19 00:11 37.7 C H 134 H 18 125/72 99 03/24/19 23:51 37.6 C H 135 H 18 146/71 H 98 03/24/19 23:33 37.7 C H 131 H 18 138/79 98 03/24/19 23:22 117 H 16 100 03/24/19 22:45 136 H 20 153/78 H 98 03/24/19 22:33 37.0 C 130 H 18 167/83 H 98
[2019-03-25] MEDS: TAMSULOSIN HCL 0.4 MG CAP PO SCH ×2 (10:10→20:43)
[2019-03-25] MEDS: NORTRIPTYLINE HCL 25 MG CAP PO SCH ×2 (10:10→20:43)
[2019-03-25] MEDS: GABAPENTIN 400 MG CAP PO SCH ×3 (10:11→20:43)
[2019-03-25] MEDS: SODIUM BICARBONATE 650 MG TAB PO SCH ×2 (10:11→20:43)
[2019-03-25] MEDS: POLYETHYLENE (MIRALAX) 17 GM PACK PO SCH (10:12)
[2019-03-25] MEDS: SENNA 8.6 MG TAB PO SCH ×2 (10:12→20:43)
[2019-03-25] MEDS: BICALUTAMIDE 50 MG TAB PO SCH (10:13)
[2019-03-25] MEDS: METOPROLOL TARTRATE 100 MG TAB PO SCH ×2 (10:14→20:43)
--- NOTE | 2019-03-25 14:45 | Family Medicine Progress Note ---
Date of Service March 25, 2019 Assessment & Plan (1) GI bleed: 74-year-old male with history of recurrent GI bleed (noted to have rectal ulcer on colonoscopy on 01/17/2019, EGD at that time was normal), hypertension heart, hyperlipidemia, DM 2 with neuropathy, CKD 3, prostate cancer, urinary retention, chronic constipation presents to the emergency room with concern of low hemoglobin and bright red blood with bowel movement from retirement. Reports straining with bowel movements, history of chronic constipation, lightheadedness, shortness of breath, and epigastric abdominal pain. Hx of recent admission and discharge on 01/18 for lower GI bleed. Lower GI bleed: - Stool currently w/o blood - Hemoglobin 11.8 (11:52 03/25) 5.2 (4:29 03/25) - Colonoscopy previous hospitalization 01/17/2019 concerning for rectal ulcer, EGD on 01/17/2019 was normal - Colonoscopy January 2018, noted diverticular disease - Continue home bowel regimen - GI consulted rec: concern for solitary rectal ulcer syndrome or XRT proctitis, patient previously did not follow prep for cscpy can consider flex. sigmoidoscopy - will continue to monitor sxs of hypovolemia and monitor H&H if bleeding has resolved, no need for GI intervention, if bleeding persists will consider flex. sigmoidoscopy to address source of bleeding Acute blood loss anemia: - Hemoglobin down to 7.6 from 11.5 on 01/20/19 - Transfused 3 units of prbcs - Trending hemoglobin every 6 hours and transfuse for hemoglobin less than 7 History of constipation -Continue bowel regimen and provide as needed Thrombocytosis: Likely reactive from anemia / acute blood loss. - Platelet previous admission 457 elevated to 509 (likely some hemoconcentration as well) Mild white blood cell count elevation - White blood cell count 11.5 - likely hemoconcentrated sample - Afebrile, not currently tachy - Chest x-ray negative - Monitor CBC w/ AM lab tomorrow if normal consider not following Hypertension, hyperlipidemia: - On metoprolol, diltiazem, lovastatin DM2 w/diabetic neuropathy - On insulin sliding scale here. On gabapentin and nortriptyline. - glucose well controlled CKD stage 3: - Report of CKD, though creatinine normal at 1.1 and GFR 73 Prostate adenocarcinoma: - Locally invasive. S/p hormone and radiation therapy Jul 2018 (with thrombocy topenia then). On casodex. Urinary retention, chronic indwelling Hamm catheter: On sodium bicarb, Flomax. Other medical problems: History of left heel osteomyelitis (2018), C diff carrier, Chronic left hip pain, osteoarthritis, Fatty liver. FEN/GI: normal diet DVT prop: SCDs, chemical contraindicated Code: DNR/DNI per records Dispo: Med surg Supervising Physician Co-Signing Physician Notes I personally examined the patient and verified all mason points of history and exam, discussed case, and agree with decision making with Dr Roper. Seems to have a little bit of rectal pain. HPI and review of systems very difficult to ascertain. Does appear comfortable now. No other new issues. No further noted bleeding. Vitals noted, in general he is awake appears very frail and withdrawn certainly even more frail than the last I saw him 2 months ago. He does not appear to be in any pain or respiratory distress. He shows no focal neuro deficits. He does appear to have muscle wasting. Lower GI bleeding with acute blood loss anemia and hemodynamic instabilitytransfuse 3 units in the ER, now has hemodynamic stability. Clinically bleeding appears to have stopped. 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 Malnutritionrelates to his overall deterioration, which seems to be predominantly mediated by his prostate cancer, but also has significant frailty. Continue supportive care Stable for transfer to medical. Otherwise as above.` Subjective Mr. Emmanuel was not able to communicate. When asked about pain he indicated that his backside hurt. Review of Systems Review of Systems: Unable to obtain due to inability to communicate with patient Physical Exam Constitutional: + cachectic and + lethargic; + not well groomed Eyes: + anicteric sclerae ENMT: external ear and nose normal, oropharynx normal Respiratory: normal respiratory effort, lungs clear to auscultation no cough Cardiovascular: RRR, no murmur, no edema Extremities: no calf tenderness and no edema Gastrointestinal (Abdomen): normal bowel sounds, soft, nontender, no hepatosplenomegaly Skin: - skin breakdown on the sacrum and gluteal region - bandages intact bilaterally on the ankle - black eschar on L ankle per nursing Neurologic: Speech / Cognition: + abnormal speech (garbled speech (baseline per guards and nursing)) Psychiatric: Apperance: + disheveled Eye Contact: good eye contact Affect: + depressed affect Genitourinary: Hamm in place Results & Data Vital Signs (Past 12 Hours) Vital Signs Temp Pulse Pulse Resp BP BP BP 03/25/19 11:35 36.5 C 87 20 123/65 03/25/19 07:47 37.9 C H 113 H 18 113/68 03/25/19 05:28 116 H 141/73 H 03/25/19 03:21 128 H 03/25/19 03:02 119 H 128/71 03/25/19 03:00 37.5 C 118 H 16 128/71 Pulse Ox 03/25/19 11:35 100 03/25/19 07:47 100 03/25/19 05:28 99 03/25/19 03:21 03/25/19 03:02 03/25/19 03:00 100 PG Care Time/CCT Total # of Minutes Spent Total Time Spent with Patient: Total time spent is greater than 50% in coord ination of care (as documented) at patient's floor/unit and/or counseling patient: (1) GI bleed GI bleed type/associated pathology: unspecified gastrointestinal hemorrhage type Qualified Code(s): K92.2 - Gastrointestinal hemorrhage, unspecified
[2019-03-25] MEDS ORDERED: cefTRIAXone SODIUM 1,000 MG in DEXTROSE 5% 50 ML IV SCH (16:00)
[2019-03-25] MEDS ORDERED: LOVASTATIN 20 MG TAB PO SCH (21:00)
[2019-03-25] MEDS ORDERED: GLUCOSE 10 TABS/TUBE PO PRN (22:07)
[2019-03-25] MEDS ORDERED: CARBOHYDRATES FOR HYPOGLYCEMIA PO PRN (22:07)
[2019-03-25] MEDS ORDERED: GLUCOSE 40% GEL 15 GM TUBE PO PRN (22:07)
[2019-03-25] MEDS ORDERED: DEXTROSE 50% 50 ML SYRINGE IV PRN (22:07)
[2019-03-25] MEDS ORDERED: GLUCAGON FOR INJ 1 MG VIAL SQ PRN (22:07)
[2019-03-26 07:20] VITALS: TEMP 97.3; O2SAT 94
[2019-03-26 08:00] LABS: Basophils # (auto) 0.02 K/uL (0-0.2); Basophils % (auto) 0.2 %; Eosinophils # (auto) 0.36 K/uL (0-0.5); Eosinophils % (auto) 4.2 %; Hematocrit (blood only) 42.6 % (42-52); Immature Granulocytes # (auto) 0.03 K/uL (0.00-0.02); Immature Granulocytes % (auto) 0.3 %; Lymphocytes # (auto) 1.42 K/uL (1.2-3.4); Lymphocytes % (auto) 16.5 %; Mean Corpuscular Hgb Conc 32.9 g/dL (32-36); Mean Corpuscular Volume 85.4 fL (80-100); Mean Platelet Volume 9.4 fL (7.4-10.4); Monocytes # (auto) 1.35 K/uL (0.11-0.59); Monocytes % (auto) 15.7 %; Neutrophils # (auto) 5.43 K/uL (1.4-6.5); Neutrophils % (auto) 63.1 %; Platelet Count 383 K/uL (130-400); RDW Coefficient of Variation 17.3 % (11.5-14.5); RDW Standard Deviation 54.6 fL (36.4-46.3); Red Blood Count 4.99 M/uL (4.7-6.1); White Blood Count 8.61 K/uL (4.8-10.8)
--- NOTE | 2019-03-26 08:51 | Family Medicine Progress Note ---
Date of Service March 26, 2019 Assessment & Plan (1) GI bleed: 74-year-old male with history of recurrent GI bleed (noted to have rectal ulcer on colonoscopy on 01/17/2019, EGD at that time was normal), hypertension heart, hyperlipidemia, DM 2 with neuropathy, CKD 3, prostate cancer, urinary retention, chronic constipation presents to the emergency room with concern of low hemoglobin and bright red blood with bowel movement from fdc. Reports straining with bowel movements, history of chronic constipation, lightheadedness, shortness of breath, and epigastric abdominal pain. Hx of recent admission and discharge on 01/18 for lower GI bleed. Lower GI bleed: - Stool currently w/o blood - Hemoglobin 14/1 (18:01 03/25), 11.8 (11:52 03/25), 5.2 (4:29 03/25) - Colonoscopy during previous hospitalization on 01/17/2019 was concerning for rectal ulcer, EGD done on 01/17/2019 was normal - Colonoscopy January 2018, noted diverticular disease - Continue home bowel regimen - GI consulted rec: concern for solitary rectal ulcer syndrome or XRT proctitis, patient previously did not follow prep for cscpy can consider flex. sigmoidoscopy - will continue to monitor sxs of hypovolemia, no need for GI intervention at this time, if bleeding persists will consider flex. sigmoidoscopy to address source of bleeding Acute blood loss anemia: - Hemoglobin down to 7.6 from 11.5 on 01/20/19 - Transfused prbcs - Trending hemoglobin every 6 hours and will transfuse for hemoglobin less than 7 History of constipation -Continue bowel regimen and provide as needed Thrombocytosis: Likely reactive from anemia / acute blood loss. - Platelet previous admission 457 elevated to 509 (likely some hemoconcentration as well) Mild white blood cell count elevation - White blood cell count 11.5 - likely hemoconcentrated sample - Afebrile, not currently tachy - Chest x-ray negative - Monitor CBC w/ AM lab tomorrow if normal consider not following Hypertension, hyperlipidemia: - On metoprolol, diltiazem, lovastatin DM2 w/diabetic neuropathy - On insulin sliding scale here. On gabapentin and nortriptyline. - glucose well controlled CKD stage 3: - Report of CKD, though creatinine normal at 1.1 and GFR 73 Prostate adenocarcinoma: - Locally invasive. S/p hormone and radiation therapy Jul 2018 (with thro mbocytopenia then). On casodex. Urinary retention, chronic indwelling Hamm catheter: On sodium bicarb, Flomax. Other medical problems: History of left heel osteomyelitis (2018), C diff carrier, Chronic left hip pain, osteoarthritis, Fatty liver. FEN/GI: normal diet DVT prop: SCDs, chemical contraindicated Code: DNR/DNI per records Dispo: Med surg Subjective Mr. Emmanuel was more alert this morning. He states that he has pain with movement at his left hip/leg. He said he had orange juice this morning and mentioned that he normally has a puree diet. Nursing was changing him while I was in the room and he did not have blood in his stool this morning. Review of Systems Review of Systems: unable to obtain full ROS due to inability to communicate Admits - pain in L hip with movement Denies - N/V Denies - abdominal pain Physical Exam Constitutional: + cachectic, + language barrier (I was only able to understand 1-2 word answers (improved)), + frail appearing and + lethargic Eyes: + EOM movement deficit tracking normally ENMT: external ear and nose normal, oropharynx normal Mouth: + poor dentition Respiratory: normal respiratory effort, lungs clear to auscultation Cardiovascular: RRR, no murmur, no edema Results & Data Vital Signs (Past 12 Hours) Vital Signs Temp Pulse Resp BP Pulse Ox 03/26/19 07:19 36.3 C L 79 18 163/78 H 94 03/25/19 23:25 36.4 C L 100 H 18 157/78 H 99 PG Care Time/CCT Total # of Minutes Spent Total Time Spent with Patient: Total time spent is greater than 50% in coordination of care (as documented) at patient's floor/unit and/or counseling patient: (1) GI bleed GI bleed type/associated pathology: unspecified gastrointestinal hemorrhage type Qualified Code(s): K92.2 - Gastrointestinal hemorrhage, unspecified
[2019-03-26] MEDS: POLYETHYLENE (MIRALAX) 17 GM PACK PO SCH (10:05)
[2019-03-26 10:07] VITALS: BP 129/74; PULSE 91
[2019-03-26] MEDS: SENNA 8.6 MG TAB PO SCH (10:08)
[2019-03-26] MEDS: SODIUM BICARBONATE 650 MG TAB PO SCH (10:08)
[2019-03-26] MEDS: GABAPENTIN 400 MG CAP PO SCH ×2 (10:09→13:49)
[2019-03-26] MEDS: METOPROLOL TARTRATE 100 MG TAB PO SCH (10:09)
[2019-03-26] MEDS: TAMSULOSIN HCL 0.4 MG CAP PO SCH (10:09)
[2019-03-26] MEDS: NORTRIPTYLINE HCL 25 MG CAP PO SCH (10:09)
[2019-03-26] MEDS: BICALUTAMIDE 50 MG TAB PO SCH (10:10)
[2019-03-26] MEDS: INSULIN ASPART 100 UNITS/ML 3 ML PEN SC SCH ×2 (10:11→13:07)
--- NOTE | 2019-03-26 10:54 | Discharge Summary ---
Date of Service March 26, 2019 Admission HPI Per Admitting Provider 74-year-old male with history of recurrent GI bleed (noted to have rectal ulcer on colonoscopy on 01/17/2019, EGD at that time was normal), hypertension heart, hyperlipidemia, DM 2 with neuropathy, CKD 3, prostate cancer, urinary retention, chronic constipation presents to the emergency room with concern of low hemoglobin and bright red blood with bowel movement from snf. Patient poor historian. Patient is bedbound and gets cleaned in bed and this has not noticed bowel movements but per guards bright red blood noted with stools. Reports lightheadedness, shortness of breath, epigastric abdominal pain straining with bowel movements. Denies any fever, chills, chest pain, nausea, vomiting, diarrhea, dysuria. Patient has chronic Hamm and no blood noted. ED course: Afebrile, heart rate increased to [id number], patient was hypertensive. Found to have hemoglobin of 7.6 which is down from 11.2 previous admission January 20, 2019. White blood cell count 11.5 and platelets 509 (likely hemoconcentrated, patient has history of thrombocytosis but appears to be more elevated than baseline). Hemoccult-positive. Chest x-ray negative. Admission Exam Per Admitting Provider General: In NAD HEENT: very dry mucous membranes Pulm: CTAB equal breath sounds bilaterally CV: Tachycardic, regular rhythm, no m/r/g Abdomen:+BS, no TTP in all quadrants, non-distended LE: no LE edema, no calf TTP Principal Diagnosis Lower GI bleed Constipation Sacral and bilateral calcaneus pressure ulcers DM II CKD stage III Leukocytosis Prostate Cancer Discharge Exam Constitutional + not well groomed Eyes + anicteric sclerae Respiratory no cough Cardiovascular Extremities: no calf tenderness and no edema Gastrointestinal (Abdomen) normal bowel sounds, soft, nontender, no hepatosplenomegaly Neurologic Speech / Cognition: + abnormal speech (garbled speech (baseline per guards and nursing)) Psychiatric Apperance: + disheveled Eye Contact: good eye contact Affect: + depressed affect Discharge Data Allergies Allergy/AdvReac Type Severity Reaction Status Date / Time No Known Allergies Allergy Verified 03/24/19 15:53 Consultations 03/24/19 18:59 ED Decision to Admit Stat 03/24/19 22:57 Consult Gastroenterology Routine Hospital Course (1) GI bleed: 74-year-old male with history of recurrent GI bleed (noted to have rectal ulcer on colonoscopy on 01/17/2019, EGD at that time was normal), hypertension heart, hyperlipidemia, DM 2 with neuropathy, CKD 3, prostate cancer, urinary retention, chronic constipation presents to the emergency room with concern of low hemoglobin and bright red blood with bowel movement from snf. Reports straining with bowel movements, history of chronic constipation, light headedness, shortness of breath, and epigastric abdominal pain. Hx. of recent admission and discharge on 01/18 for lower GI bleed. Lower GI bleed likely 2/2 XRT proctitis vs SRUS aggravated by constipation - Colonoscopy during previous hospitalization on 01/17/2019 was concerning for rectal ulcer, EGD done on 01/17/2019 was normal - Colonoscopy January 2018, noted diverticular disease - GI consulted rec: concern for solitary rectal ulcer syndrome or XRT proctitis, patient previously did not follow prep for cscpy, patient refused flex. sigmoidoscopy. take 1 capful of Miralax and 1 tablespoon of fiber supplement - No SxS of hypovolemia, Hgb normal and stable, hemoglobin 14.1 (03/25) and 14 (03/26) - no blood in stool on discharge - if bleeding returns, return to ER for evaluation Acute blood loss anemia: - Hemoglobin down to 7.6 from 11.5 on 01/20/19 - Transfused 3 U prbcs - hemoglobin was monitored during hospital course and there was no need for additional transfusions History of constipation - likely cause of acute lower GI bleed - patient had consistent soft bowel movements during hospitalization - Continue bowel regimen per GI (capful of Miralax and 1 tablespoon of fiber supplement) Thrombocytosis: Likely reactive from anemia / acute blood loss. - Platelet previous admission 457 elevated to 509 (likely some hemoconcentration as well) - resolved prior to discharge w/ plt 383 (03/26) Mild white blood cell count elevation - White blood cell count 8.6 on discharge - likely hemoconcentrated sample on admission - Afebrile and normal cardiac rate on discharge - Chest x-ray was negative - Monitored CBC normal with WBC 8.6 Plt 383 & H&H 14&42.6 Hypertension, hyperlipidemia: - On metoprolol, diltiazem, lovastatin at home and continue in the outpatient setting DM2 w/diabetic neuropathy - On insulin sliding scale during hospitalization. On gabapentin and nortriptyline. - one episode of hypoglycemia 8/10 overnight likely 2/2 poor nutritional status - encourage nutrition CKD stage III: - Report of CKD, though creatinine normal at 1.1 and GFR 73 Prostate adenocarcinoma: - Locally invasive. S/p hormone and radiation therapy Jul 2018 (with thrombocytopenia then). - Continue Casodex. Urinary retention, - chronic indwelling Hamm catheter: On sodium bicarb, Flomax. - urine output 2301 ml over this admission Other medical problems: History of left heel osteomyelitis (2018), C diff carrier, Chronic left hip pain, osteoarthritis, Fatty liver. FEN/GI: puree diet DVT prop: SCDs, chemical contraindicated Code: DNR/DNI per records Dispo: Med surg Total Time Total Time Spent Total Time Spent (In Minutes): < 30 Supervising Physician Co-Signing Physician Notes I personally examined the patient and verified all mason points of history and exam, discussed case, and agree with decision making with Dr Roper Resting comfortably in bed. Case discussed with GI. Vitals noted, no noted distress. Covered up in bed. Breathing appears to be unlabored. Lower GI bleeding with acute blood loss anemia and hemodynamic instabilitytransfused 3 units in the ER, now has hemodynamic stability. Clinically bleeding appears to have stopped. 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 Malnutritionrelates to his overall deterioration, which seems to be predominantly mediated by his prostate cancer, but also has significant frailty. Stable for return to [facility] Resident Activity Tracking Resident Involvement: Resident Care Provided Care Provided: Adult Hospital Medicine
--- NOTE | 2019-03-26 10:55 | Gastroenterology Progress Note ---
Date of Service March 26, 2019 Subjective Pt denies any symptoms. Per nurses, he has not had any further rectal bleeding. Abd: soft Labs reviewed - hgb stable from yesterday; again inappropriate rise with x fusion yesterday. A/P: Rectal bleeding, constipation - I discussed management options with him, as well as potential diagnoses - he may have stercoral ulcer related to constipation, or radiation proctitis. I offered him inpt flex sig; he verbalized comprehension of this procedure, and stated that he does not want to have it done. Ok for d/c. No need for GI f/u, although please reconsult if he changes his mind regarding endoscopic w/u. He should be on bowel regimen at discharge - miralax 1 cap/day + 1 tbsp fiber supplement. Results & Data Vital Signs (Past 12 Hours) Vital Signs Temp Pulse Resp BP Pulse Ox 03/26/19 10:06 91 H 129/74 03/26/19 07:19 36.3 C L 79 18 163/78 H 94 03/25/19 23:25 36.4 C L 100 H 18 157/78 H 99
== END 2019-03-26 16:23 | DRG 394 ==
LOC: ED 15:34 → 2E 21:48 → SUATTDRO 21:48 → 2E 22:16 → 3N 03-25 15:23